=== PATIENT | male | born 1935 | race Caucasian/White ===

== ENCOUNTER 2016-06-10 09:11 | Inpatient (IN) | payer OTHER ==
[2016-06-10 09:39] VITALS: BMI 23.6
--- NOTE | 2016-06-10 09:52 | PDOC ---
History of Present Illness - General History Source: Patient Exam Limitations: Dementia - History of Present Illness Initial Comments: 06/10/16 10:16 The patient is a 80 year old male, BIBA from [facility] with a significant past medical history of asthma, HTN, GERD, prostate CA, anxiety, anemia, COPD, early dementia, who presents to the emergency department with hematuria since today. The patients daughter reports the patient being scheduled for a CT scan of his abdomen secondary to abdominal weight loss and decreased appetite. She reports due to this upcoming abdomen CT scan, [place] staff did not medicate the patient today, (including his normal dosage of Ativan). She states as a result the patient became quickly agitated, uncooperative, and blood was found in his urine. The patient arrives to the ER agitated and uncooperative with ER staff. Unable to obtain history from patient. Allergies: NKA Past surgical history: See HPI Social History: Nonsmoker. Denies EtOH use and recreational drug use. Primary Care Physician: <Marcus Okeefe - Last Filed: 06/10/16 11:05> <Destini Weller - Last Filed: 06/10/16 11:22> - General Chief Complaint: Hematuria Stated Complaint: HEMATURIA Time Seen by Provider: 06/10/16 09:25 Past History <Marcus Okeefe - Last Filed: 06/10/16 11:05> - Past Medical History Anemia: Yes Asthma: Yes Cancer: No GI Disorders: Yes (gerd) Disorders: Yes (prostatic ca) HTN: Yes Psychiatric Problems: Yes (anxiety) Other medical history: hyponatremia - Immunization History Immunization Up to Date: No - Psycho/Social/Smoking Cessation Hx Anxiety: No Suicidal Ideation: No Smoking History: Unknown if ever smoked Have you smoked in the past 12 months: No Information on smoking cessation initiated: No Hx Alcohol Use: No Drug/Substance Use Hx: No Substance Use Type: None <Destini Weller - Last Filed: 06/10/16 11:22> - Past Medical History Allergies/Adverse Reactions: Allergies Allergy/AdvReac Type Severity Reaction Status Date / Time No Known Allergies Allergy Verified 06/10/16 09:39 Home Medications: Ambulatory Orders Aa/Hydrolyzed Collagen, Whey [Lps Neutral Flavor Liquid] 30 ml PO TID 06/10/16 Acetaminophen 2 tab PO DAILY PRN 06/10/16 Amlodipine Besylate 1 tab PO DAILY 06/10/16 Ascorbic Acid [Vitamin C -] 1 tab PO DAILY 06/10/16 Clindamycin [Cleocin -] 1 tab PO Q6H 06/10/16 Collagenase Clostridium Hist. [Santyl] 1 applic TP DAILY 06/10/16 Dronabinol [Marinol] 1 tab PO BID 06/10/16 Finasteride 1 tab PO DAILY 06/10/16 Lorazepam [Ativan] 1 tab PO HS 06/10/16 Menthol/Zinc Oxide [Calmoseptine Ointment] 1 applic TP TID 06/10/16 Metoprolol Succinate [Toprol Xl] 1 tab PO DAILY 06/10/16 Multivitamin with Minerals [Icaps Plus] 1 tab PO DAILY 06/10/16 Omeprazole 2 tab PO DAILY 06/10/16 Tamsulosin HCl 1 tab PO HS 06/10/16 Tramadol HCl 1 tab PO Q4H PRN 06/10/16 Tramadol HCl [Tramadol HCl ER] 100 mg PO DAILY 06/10/16 Trazodone HCl 37.5 mg PO HS 06/10/16 Review of Systems - Review of Systems Able to Perform ROS?: No (Dementia) <Marcus Okeefe - Last Filed: 06/10/16 11:05> *Physical Exam - Vital Signs Last Vital Signs Temp Pulse Resp BP Pulse Ox 100.4 F H 109 H 24 109/95 100 06/10/16 10:00 06/10/16 10:00 06/10/16 10:00 06/10/16 10:00 06/10/16 10:00 <Marcus Okeefe - Last Filed: 06/10/16 11:05> - Vital Signs Last Vital Signs Temp Pulse Resp BP Pulse Ox 100.4 F H 130 H 28 H 127/84 100 06/10/16 09:15 06/10/16 09:15 06/10/16 09:15 06/10/16 09:15 06/10/16 09:15 - Physical Exam Comments: GENERAL: Awake, alert, and oriented to person, restless in bed. Pale. HEAD: No signs of trauma. EYES: PERRLA, EOMI, sclera anicteric, conjunctiva clear. ENT: Auricles normal inspection, hearing grossly normal, nares patent, oropharynx clear without exudates. Dry mucosa. NECK: Normal ROM, supple, no lymphadenopathy, JVD, or masses. LUNGS: Breath sounds equal, clear to auscultation bilaterally. No wheezes, and no crackles. HEART: Tachycardic. No m/r/g. ABDOMEN: Soft, nontender, normoactive bowel sounds. No guarding, no rebound. No masses. EXTREMITIES: Normal range of motion, no edema. No clubbing or cyanosis. No cords, erythema, or tenderness. NEUROLOGICAL: Limited neuro exam due to AMS. SKIN: Warm, Dry, normal turgor, no rashes or lesions noted. <Destini Weller - Last Filed: 06/10/16 11:22> ED Treatment Course - LABORATORY CBC & Chemistry Diagram: 06/10/16 10:13 06/10/16 10:13 - ADDITIONAL ORDERS Additional order review: Laboratory Results 06/10/16 09:52 VBG pH 7.41 POC VBG pCO2 37.8 L POC VBG pO2 22.7 L Mixed VBG HCO3 23.7 - RADIOLOGY Radiograph Interpretation: 06/10/16 11:05 CHEST X-RAY impressions reported by : No acute cardiopulmonary disease is present. - Medications Given in the ED: ED Medications Discontinued Medications Generic Name Dose Route Start Last Admin Trade Name Jaxonq PRN Reason Stop Dose Admin Lorazepam 0.5 mg 06/10/16 10:04 06/10/16 10:12 Ativan Injection - IVPUSH 06/10/16 10:05 0.5 mg ONCE ONE Administration <Marcus Okeefe - Last Filed: 06/10/16 11:05> - LABORATORY CBC & Chemistry Diagram: 06/10/16 10:13 06/10/16 10:13 <Destini Weller - Last Filed: 06/10/16 11:22> *DC/Admit/Observation/Transfer - Attestations Scribe Attestion: 06/10/16 10:17 Documentation prepared by Marcus Okeefe, acting as medical secretary teacher for Destini Weller MD. <Marcus Okeefe - Last Filed: 06/10/16 11:05> - Discharge Dispostion Admit: Yes <Destini Welelr Last Filed: 06/10/16 11:22> Diagnosis at time of Disposition: UTI (urinary tract infection) Qualifiers: Urinary tract infection type: acute cystitis Hematuria presence: without hematuria Qualified Code(s): N30.00 - Acute cystitis without hematuria Sepsis Qualifiers: Sepsis type: sepsis due to unspecified organism Qualified Code(s): A41.9 - Sepsis, unspecified organism - Discharge Dispostion Condition at time of disposition: Guarded - Referrals Referrals: Bhavesh Escalante MD [Primary Care Provider] -
[2016-06-10] MEDS ORDERED: SODIUM CHLORIDE 1,000 ML IV STA (10:03)
[2016-06-10] MEDS ORDERED: LORAZEPAM CARPU-JECT 2 MG/ML DISP.SYRIN IVPUSH ONE (10:04)
[2016-06-10 10:07] LABS: VENOUS BLOOD GAS HCO3 23.7 meq/L (19-25); VENOUS PH 7.41 (7.32-7.42)
[2016-06-10] MEDS ORDERED: LORAZEPAM CARPU-JECT 2 MG/ML DISP.SYRIN ONE (10:08)
[2016-06-10] MEDS ORDERED: ACETAMINOPHEN 1000 MG/100 ML VIAL (NON FORMULARY) IVPB ONE (10:19)
[2016-06-10] MEDS ORDERED: morphine CARPU-JECT 2 MG/1 ML DISP.SYRIN IVPUSH ONE ×2 (10:23→11:23)
[2016-06-10] MEDS ORDERED: morphine CARPU-JECT 2 MG/1 ML DISP.SYRIN ONE ×2 (10:33→11:30)
[2016-06-10] MEDS ORDERED: ACETAMINOPHEN INJECTION 100 ML IVPB ONE (10:33)
[2016-06-10 10:46] LABS: BASOPHIL 0.2 % (0-2.0); MCH 27.2 pg (25.7-33.7); MEAN CELL VOLUME 82.5 fl (80-96); NEUTROPHILS 88.2 % (42.8-82.8); PLATELET COUNT 334 K/MM3 (134-434); RDW 17.1 % (11.9-15.9)
[2016-06-10 10:53] LABS: ALBUMIN 2.3 g/dl (3.4-5.0); BILIRUBIN,TOTAL 0.9 mg/dL (0.2-1.0); CALCIUM 8.4 mg/dL (8.5-10.1); COCKROFT - GAULT 46.75; CREATININE 1.2 mg/dL (0.7-1.3); TOT PROT 5.8 g/dl (6.4-8.2)
[2016-06-10 10:54] LABS: INR 1.41 (0.82-1.09); PROTHROMBIN TIME (PATIENT) 15.6 SEC (9.98-11.88)
[2016-06-10 10:55] LABS: TROPONIN I 0.08 ng/ml (0.00-0.05)
[2016-06-10 10:56] LABS: URINE APPEARANCE CLOUDY; URINE BILIRUBIN NEGATIVE (NEGATIVE); URINE BLOOD 3+ (NEGATIVE); URINE GLUCOSE (UA) NEGATIVE (NEGATIVE); URINE KETONE 1+ (NEGATIVE); URINE LEUK ESTERASE 2+ (NEGATIVE); URINE NITRITE NEGATIVE (NEGATIVE); URINE PROTEIN 2+ (NEGATIVE); URINE UROBILINOGEN NEGATIVE E.U./dl (0.2-1.0)
[2016-06-10 10:57] LABS: ACTIVATED PTT 32.9 SECONDS (26.9-34.4); URINE COLOR BROWN
[2016-06-10 11:00] LABS: URINE RBC 4125 /hpf (0-3); URINE WBC 675 /hpf (3-5)
[2016-06-10] MEDS ORDERED: CEFTRIAXONE 1 GM in DEXTROSE 5%-WATER - 50 ML IVPB ONE (11:08)
[2016-06-10] MEDS ORDERED: CEFTRIAXONE 50 ML ONE (11:19)
[2016-06-10] MEDS ORDERED: HALOPERIDOL LACTATE 5 MG/ML IM ONE (12:15)
[2016-06-10] MEDS ORDERED: HALOPERIDOL LACTATE 5 MG/ML ONE (12:17)
--- NOTE | 2016-06-10 12:38 | HP ---
Admitting History and Physical - Primary Care Physician PCP: Bhavesh Escalante - Admission Chief Complaint: Unable to obtain History of Present Illness: Mr Mcdonald is a 80 [address] old patient of Dr Escalante'mauricio at [facility] who was sent in for an outpatient CT scan and was found to have UTI with severe sepsis. Patient has history of dementia and daughter is at bedside. Daughter says patient is normally well controlled and sleeping all the time. She says he has chronic complaint of abdominal pain and recently has decreased appetite. She states he has been losing weight. He was scheduled for an outpatient CT scan of the abdomen and was very agitated so it could not be done. He was found to have blood in his call[place]ay bag and UTI. Daughter at bedside is saying he is complaining of chest pain and screaming for help. I am unable to obtain any history from the patient at this time secondary to altered mental status. 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 Cardiovascular: Yes: HTN Renal/: Yes: BPH - Past Surgical History Additional Past Surgical History: Unknown - Smoking History Smoking history: Unknown if ever smoked Have you smoked in the past 12 months: No - Alcohol/Substance Use Hx Alcohol Use: No History of Substance Use: reports: None - Social History Usual Living Arrangement: Yes: [facility] ADL: Support Services History of Recent Travel: No Home Medications - Allergies Allergies/Adverse Reactions: Allergies Allergy/AdvReac Type Severity Reaction Status Date / Time No Known Allergies Allergy Verified 06/10/16 09:39 - Home Medications Home Medications: Ambulatory Orders Aa/Hydrolyzed Collagen, Whey [Lps Neutral Flavor Liquid] 30 ml PO TID 06/10/16 Acetaminophen 2 tab PO DAILY PRN 06/10/16 Amlodipine Besylate 1 tab PO DAILY 06/10/16 Ascorbic Acid [Vitamin C -] 1 tab PO DAILY 06/10/16 Clindamycin [Cleocin -] 1 tab PO Q6H 06/10/16 Collagenase Clostridium Hist. [Santyl] 1 applic TP DAILY 06/10/16 Dronabinol [Marinol] 1 tab PO BID 06/10/16 Finasteride 1 tab PO DAILY 06/10/16 Lorazepam [Ativan] 1 tab PO HS 06/10/16 Menthol/Zinc Oxide [Calmoseptine Ointment] 1 applic TP TID 06/10/16 Metoprolol Succinate [Toprol Xl] 1 tab PO DAILY 06/10/16 Multivitamin with Minerals [Icaps Plus] 1 tab PO DAILY 06/10/16 Omeprazole 2 tab PO DAILY 06/10/16 Tamsulosin HCl 1 tab PO HS 06/10/16 Tramadol HCl 1 tab PO Q4H PRN 06/10/16 Tramadol HCl [Tramadol HCl ER] 100 mg PO DAILY 06/10/16 Trazodone HCl 37.5 mg PO HS 06/10/16 Family Disease History - Family Disease History Other Family History: Multiple family members with diabetes, daughter cannot remember which specific family members though Review of Systems Unable to obtain ROS, reason: AMS Physical Examination Vital Signs: Vital Signs Temperature 100.4 F H 06/10/16 10:00 Pulse Rate 105 H 06/10/16 10:45 Respiratory Rate 24 06/10/16 10:45 Blood Pressure 120/59 06/10/16 10:45 O2 Sat by Pulse Oximetry (%) 99 06/10/16 10:45 Constitutional: Yes: Other (agitated, yelling, attempting to get out of bed) Eyes: Yes: Conjunctiva Clear HENT: Yes: Atraumatic, Normocephalic Cardiovascular: Yes: Tachycardia. No: Gallop, Murmur, Rub Respiratory: Yes: Other (unable to cooperate, yells through lung exam) Gastrointestinal: Yes: Normal Bowel Sounds, Soft, Tenderness. No: Distention Renal/: Yes: Hematuria Extremities: Yes: WNL Edema: No Labs: CBC, BMP 06/10/16 10:13 06/10/16 10:13 Imaging - Results Chest X-ray: Report Reviewed, Image Reviewed Problem List - Problems (1) Sepsis Assessment/Plan: -patient with severe sepsis as evidenced by leukocytosis, lactic acidosis, tachycardia, and elevated troponins -secondary to UTI -admit to telemetry -hydrate with IVF -rocephin ordered, ID consulted -recheck lactic acidosis -monitor Code(s): A41.9 - SEPSIS, UNSPECIFIED ORGANISM Qualifiers: Sepsis type: sepsis due to unspecified organism Qualified Code(s): A41.9 - Sepsis, unspecified organism (2) UTI (urinary tract infection) Assessment/Plan: -with hematuria -hematuria may be secondary to calloway trauma -cause of sepsis -urology consultation for hematuria -rocephin for UTI -cultures sent -ID consulted Code(s): N39.0 - URINARY TRACT INFECTION, SITE NOT SPECIFIED Qualifiers: Urinary tract infection type: acute cystitis Hematuria presence: with hematuria Qualified Code(s): N30.01 - Acute cystitis with hematuria (3) Lactic acid acidosis Assessment/Plan: -secondary to sepsis -IVF and antibiotics -recheck in am Code(s): E87.2 - ACIDOSIS (4) Metabolic encephalopathy Assessment/Plan: -with severe agitation -treat underlying sepsis -continue home regimen -prn haldol in the short term Code(s): G93.41 - METABOLIC ENCEPHALOPATHY (5) HTN (hypertension) Assessment/Plan: -continue toprol and amlodipine with hold parameters Code(s): I10 - ESSENTIAL (PRIMARY) HYPERTENSION (6) Dementia Assessment/Plan: -unclear baseline, but clearly worse -will continue outpatient regimen -treat sepsis -d/w daughter at bedside, explained patient may have new baseline Code(s): F03.90 - UNSPECIFIED DEMENTIA WITHOUT BEHAVIORAL DISTURBANCE Assessment/Plan 65 minutes spent in critical care time with this patient
--- NOTE | 2016-06-10 14:30 | CON.CARD ---
Cardiology Consult (text) - Consultation Consultation Note: CC: nstemi 80 yo with h/o htn, bph, advanced dementia who sent to ER for hematuria and noted to have UTI with sepsis complicated by elevated cardiac enzymes. hematuria noticed in call[place]ay when he became agitated while getting an outpatient CT scan. Scan had been ordered for sx's of abdominal pain and poor po intake/ weight loss. Per report typically sleeps most of the day. Per report, patient became agitated again today complaining of chest pain. I am unable to obtain any history from the patient at this time secondary to altered mental status. On evaluation patient is non-verbal and appears disoriented. 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 Cardiovascular: Yes: HTN Renal/: Yes: BPH - Past Surgical History Additional Past Surgical History: Unknown - Smoking History Smoking history: Unknown if ever smoked Have you smoked in the past 12 months: No - Alcohol/Substance Use Hx Alcohol Use: No History of Substance Use: reports: None - Social History Usual Living Arrangement: Yes: Senior Care, [facility] ADL: Support Services History of Recent Travel: No - Family Disease History Other Family History: no cardiac disease per report Ambulatory Orders Aa/Hydrolyzed Collagen, Whey [Lps Neutral Flavor Liquid] 30 ml PO TID 06/10/16 Acetaminophen 2 tab PO DAILY PRN 06/10/16 Amlodipine Besylate 1 tab PO DAILY 06/10/16 Ascorbic Acid [Vitamin C -] 1 tab PO DAILY 06/10/16 Clindamycin [Cleocin -] 1 tab PO Q6H 06/10/16 Collagenase Clostridium Hist. [Santyl] 1 applic TP DAILY 06/10/16 Dronabinol [Marinol] 1 tab PO BID 06/10/16 Finasteride 1 tab PO DAILY 06/10/16 Lorazepam [Ativan] 1 tab PO HS 06/10/16 Menthol/Zinc Oxide [Calmoseptine Ointment] 1 applic TP TID 06/10/16 Metoprolol Succinate [Toprol Xl] 1 tab PO DAILY 06/10/16 Multivitamin with Minerals [Icaps Plus] 1 tab PO DAILY 06/10/16 Omeprazole 2 tab PO DAILY 06/10/16 Tamsulosin HCl 1 tab PO HS 06/10/16 Tramadol HCl 1 tab PO Q4H PRN 06/10/16 Tramadol HCl [Tramadol HCl ER] 100 mg PO DAILY 06/10/16 Trazodone HCl 37.5 mg PO HS 06/10/16 Current Medications Amlodipine Besylate (Norvasc -) 10 mg PO DAILY [facility] Ascorbic Acid (Vitamin C -) 500 mg PO DAILY [facility] Collagenase (Santyl -) 1 applic TP DAILY [facility] Dronabinol (Marinol -) 2.5 mg PO BIDLS [facility] Finasteride (Proscar -) 5 mg PO DAILY [facility] Haloperidol (Haldol Injection (Fast Acting) -) 2 mg IM Q4H PRN PRN Reason: AGITATION Heparin Sodium (Porcine) (Heparin -) 5,000 unit SQ TID [facility] Sodium Chloride (Normal Saline -) 1,000 mls @ 75 mls/hr IV ASDIR [facility] Ceftriaxone Sodium (Rocephin 1gm Ivpb (Pre-Docked)) 50 mls @ 100 mls/hr IVPB DAILY [facility] Lactobacillus Acidophilus (Bacid -) 1 tab PO DAILY [facility] Lorazepam (Ativan -) 0.5 mg PO HS [facility] Metoprolol Succinate (Toprol Xl -) 50 mg PO DAILY [facility] Non-Formulary Medication (Menthol/Zinc Oxide [Calmoseptine Ointment]) 1 applic TP TID [facility] Pantoprazole Sodium (Protonix -) 40 mg PO DAILY [facility] Tamsulosin HCl (Flomax -) 0.4 mg PO HS [facility] Trazodone HCl (Desyrel -) 37.5 mg PO HS [facility] Vital Signs - 24 hr 06/10/16 06/10/16 06/10/16 09:15 10:00 10:15 Temperature 100.4 F H 100.4 F H Pulse Rate 130 H 109 H Pulse Rate [ 106 H Radial] Respiratory 28 H 24 24 Rate Blood Pressure 127/84 109/95 Blood Pressure 112/92 [Left] O2 Sat by Pulse 100 100 100 Oximetry (%) 06/10/16 06/10/16 06/10/16 10:30 10:45 11:15 Temperature Pulse Rate Pulse Rate [ 105 H 105 H 102 H Radial] Respiratory 24 24 22 Rate Blood Pressure Blood Pressure 121/58 120/59 104/56 [Left] O2 Sat by Pulse 99 99 99 Oximetry (%) 06/10/16 06/10/16 06/10/16 12:15 13:14 14:15 Temperature Pulse Rate Pulse Rate [ 108 H 91 H 84 Radial] Respiratory 22 20 20 Rate Blood Pressure Blood Pressure 120/88 105/67 104/52 [Left] O2 Sat by Pulse 100 98 99 Oximetry (%) Intake & Output 06/08/16 06/09/16 06/10/16 06/11/16 07:59 07:59 07:59 07:59 Intake Total 4750 Output Total 3200 Balance 1550 Weight 146 lb agitated, cachectic jvd flat, neck supple ctab, nl effort tachycardic, regular nl s1, s2 no mrg + bs soft nt nd ext without e/c/c + dp/pt alert but not oriented, non-verbal no jaundice, diaphoresis CBC, BMP 06/10/16 10:13 06/10/16 10:13 Laboratory Tests 06/10/16 06/10/16 06/10/16 10:13 10:13 10:13 INR 1.41 H Creat Clearance w eGFR 58.40 Lactic Acid 4.050 H* Total Bilirubin 0.9 AST 33 ALT 22 Alkaline Phosphatase 104 Creatine Kinase 244 Creatine Kinase Index 2.9 CK-MB (CK-2) 7.012 H Troponin I 0.08 H Albumin 2.3 L 06/10/16 11:57 INR Creat Clearance w eGFR Lactic Acid 2.482 H* Total Bilirubin AST ALT Alkaline Phosphatase Creatine Kinase Creatine Kinase Index CK-MB (CK-2) Troponin I Albumin EKG 06/10 12:21: uninterpretable due to baseline artifact EKG 06/10 14:46 Poor quality/baseline. Sinus tach with diffuse ST abnormalities. anterior ST sagging. possible inferior q waves. low limb voltages. tele: sinus tach abd CT: fecal retention, sacral decub with surrounding subcut air/abscess cxr: no acute infiltrate 80 yo with h/o htn, bph, advanced dementia who sent to ER for hematuria and noted to have UTI with sepsis complicated by elevated cardiac enzymes. nstemi - likely demand in setting of infection and tachycardia. Trend cardiac enzymes until peak to monitor trend. Would avoid ischemic work up if possible given underlying comorbidities, mental status. Would avoid anticoagulation/acs treatment at this time in light of recent hematuria. - will start low dose atorvastatin for now. can consider asa if urology amenable. - resume metoprolol - echo htn - currently has not received anti-hypertensives. monitor with resumption of regimen. sepsis/uti/hematuria - mgm't per pmd/urology/id
[2016-06-10] MEDS: HALOPERIDOL LACTATE 5 MG/ML IM PRN (15:09)
[2016-06-10] MEDS: SODIUM CHLORIDE 1,000 ML IV SCH (15:12)
[2016-06-10] MEDS: HEPARIN NA (PORCINE) 5,000 UNITS/ML 1ML VIAL SQ SCH ×2 (15:13→21:57)
--- NOTE | 2016-06-10 15:30 | CONSULT ---
Consult Consult Specialty:: infectious diseases Reason for Consultation:: sepsis,fever - History of Present Illness History of Present Illness: 80 year old patient who has been known to me from the long-term found to have UTI with severe sepsis. 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 Cardio/Vascular: Yes: HTN Renal/: Yes: BPH - Alcohol/Substance Use Hx Alcohol Use: No History of Substance Use: reports: None - Smoking History Smoking history: Unknown if ever smoked Have you smoked in the past 12 months: No - Social History ADL: Support Services History of Recent Travel: No Home Medications - Allergies Allergies/Adverse Reactions: Allergies Allergy/AdvReac Type Severity Reaction Status Date / Time No Known Allergies Allergy Verified 06/10/16 09:39 - Home Medications Home Medications: Ambulatory Orders Aa/Hydrolyzed Collagen, Whey [Lps Neutral Flavor Liquid] 30 ml PO TID 06/10/16 Acetaminophen 2 tab PO DAILY PRN 06/10/16 Amlodipine Besylate 1 tab PO DAILY 06/10/16 Ascorbic Acid [Vitamin C -] 1 tab PO DAILY 06/10/16 Clindamycin [Cleocin -] 1 tab PO Q6H 06/10/16 Collagenase Clostridium Hist. [Santyl] 1 applic TP DAILY 06/10/16 Dronabinol [Marinol] 1 tab PO BID 06/10/16 Finasteride 1 tab PO DAILY 06/10/16 Lorazepam [Ativan] 1 tab PO HS 06/10/16 Menthol/Zinc Oxide [Calmoseptine Ointment] 1 applic TP TID 06/10/16 Metoprolol Succinate [Toprol Xl] 1 tab PO DAILY 06/10/16 Multivitamin with Minerals [Icaps Plus] 1 tab PO DAILY 06/10/16 Omeprazole 2 tab PO DAILY 06/10/16 Tamsulosin HCl 1 tab PO HS 06/10/16 Tramadol HCl 1 tab PO Q4H PRN 05/03/17 Tramadol HCl [Tramadol HCl ER] 100 mg PO DAILY 06/10/16 Trazodone HCl 37.5 mg PO HS 06/10/16 Family Disease History - Family Disease History Other Family History: Multiple family members with diabetes, daughter cannot remember which specific family members though Review of Systems Unable to obtain ROS, reason: unable to obtain Physical Exam Vital Signs: Vital Signs Temperature 100.4 F H 06/10/16 10:00 Pulse Rate 84 06/10/16 14:15 Respiratory Rate 20 06/10/16 14:15 Blood Pressure 104/52 06/10/16 14:15 O2 Sat by Pulse Oximetry (%) 99 06/10/16 14:15 Constitutional: Yes: Mild Distress, Poor Hygeine, Other Eyes: Yes: Conjunctiva Clear HENT: Yes: Atraumatic Neck: Yes: Supple Cardiovascular: Yes: Regular Rate and Rhythm, Tachycardia Respiratory: Yes: Regular, CTA Bilaterally Gastrointestinal: Yes: Normal Bowel Sounds, Soft Renal/: Yes: [place] Present Musculoskeletal: Yes: Other Extremities: Yes: Other Wound/Incision: Yes: Other (stage 4 decubitus ulce ulcer seen wound with some slough otherwise clean) Neurological: Yes: Alert, Other (agitated) Psychiatric: Yes: Other Imaging - Results Chest X-ray: Report Reviewed, Image Reviewed Cat Scan: Report Reviewed, Image Reviewed Assessment/Plan Problem List - Problems (1) Sepsis Code(s): A41.9 - SEPSIS, UNSPECIFIED ORGANISM Qualifiers: Sepsis type: sepsis due to unspecified organism Qualified Code(s): A41.9 - Sepsis, unspecified organism (2) UTI (urinary tract infection) Code(s): N39.0 - URINARY TRACT INFECTION, SITE NOT SPECIFIED Qualifiers: Urinary tract infection type: acute cystitis Hematuria presence: with hematuria Qualified Code(s): N30.01 - Acute cystitis with hematuria (3) Lactic acid acidosis Code(s): E87.2 - ACIDOSIS (4) Metabolic encephalopathy Code(s): G93.41 - METABOLIC ENCEPHALOPATHY (5) HTN (hypertension) Code(s): I10 - ESSENTIAL (PRIMARY) HYPERTENSION (6) Dementia Code(s): F03.90 - UNSPECIFIED DEMENTIA WITHOUT BEHAVIORAL DISTURBANCE plan will start on zosyn continue to monitor wbc lactic acid hydration rest as per priry team
--- NOTE | 2016-06-10 18:13 | CON.GU ---
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 Cardio/Vascular: Yes: HTN Renal/: Yes: BPH, Hematuria, UTI - Alcohol/Substance Use Hx Alcohol Use: No History of Substance Use: reports: None - Smoking History Smoking history: Unknown if ever smoked Have you smoked in the past 12 months: No - Social History ADL: Support Services History of Recent Travel: No Home Medications - Allergies Allergies/Adverse Reactions: Allergies Allergy/AdvReac Type Severity Reaction Status Date / Time No Known Allergies Allergy Verified 06/10/16 09:39 - Home Medications Home Medications: Ambulatory Orders Aa/Hydrolyzed Collagen, Whey [Lps Neutral Flavor Liquid] 30 ml PO TID 06/10/16 Acetaminophen 2 tab PO DAILY PRN 06/10/16 Amlodipine Besylate 1 tab PO DAILY 06/10/16 Ascorbic Acid [Vitamin C -] 1 tab PO DAILY 06/10/16 Clindamycin [Cleocin -] 1 tab PO Q6H 06/10/16 Collagenase Clostridium Hist. [Santyl] 1 applic TP DAILY 06/10/16 Dronabinol [Marinol] 1 tab PO BID 06/10/16 Finasteride 1 tab PO DAILY 06/10/16 Lorazepam [Ativan] 1 tab PO HS 06/10/16 Menthol/Zinc Oxide [Calmoseptine Ointment] 1 applic TP TID 06/10/16 Metoprolol Succinate [Toprol Xl] 1 tab PO DAILY 06/10/16 Multivitamin with Minerals [Icaps Plus] 1 tab PO DAILY 06/10/16 Omeprazole 2 tab PO DAILY 06/10/16 Tamsulosin HCl 1 tab PO HS 06/10/16 Tramadol HCl 1 tab PO Q4H PRN 06/10/16 Tramadol HCl [Tramadol HCl ER] 100 mg PO DAILY 06/10/16 Trazodone HCl 37.5 mg PO HS 06/10/16 Family Disease History - Family Disease History Other Family History: Multiple family members with diabetes, daughter cannot remember which specific family members though Physical Exam- Vital Signs: Vital Signs Temperature 98.0 F 06/10/16 15:00 Pulse Rate 124 H 05/03/17 15:00 Respiratory Rate 19 06/10/16 15:00 Blood Pressure 159/79 06/10/16 15:00 O2 Sat by Pulse Oximetry (%) 99 06/10/16 14:15 Imaging - Results Cat Scan: Report Reviewed Ultrasound: Report Reviewed Problem List - Problems (1) UTI (urinary tract infection) Code(s): N39.0 - URINARY TRACT INFECTION, SITE NOT SPECIFIED Qualifiers: Urinary tract infection type: acute cystitis Hematuria presence: with hematuria Qualified Code(s): N30.01 - Acute cystitis with hematuria (2) Sepsis Code(s): A41.9 - SEPSIS, UNSPECIFIED ORGANISM Qualifiers: Sepsis type: sepsis due to unspecified organism Qualified Code(s): A41.9 - Sepsis, unspecified organism Assessment/Plan 80 yo male w hx of bph recent UTI change mental status Now w calloway to sd draining wbc 19 cr 1.[address] no hydro Would cont calloway to sd only d/c if clinically improves cont current abx Will require elective cystoscopy will follow p voiding trial
[2016-06-10] MEDS: DRONABINOL 2.5 MG CAPSULE PO SCH (18:24)
[2016-06-10 19:00] LABS: TROPONIN I 0.09 ng/ml (0.00-0.05)
[2016-06-10] MEDS: LORazepam 0.5 MG TABLET PO SCH (21:54)
[2016-06-10] MEDS: traZODone HCL 50 MG TABLET (FP) PO SCH (21:54)
[2016-06-10] MEDS: ATORVASTATIN CA 10 MG TABLET (FP) PO SCH (21:54)
[2016-06-10] MEDS: TAMSULOSIN HCL 0.4 MG CAP.ER.24H (FP) PO SCH (21:54)
[2016-06-11] MEDS ORDERED: PIPERACILLIN/TAZOB 3.375 GM 3.375 GM in DEXTROSE 5%-WATER - 50 ML IVPB SCH (02:45)
[2016-06-11] MEDS: SODIUM CHLORIDE 1,000 ML IV SCH ×2 (03:15→12:38)
[2016-06-11] MEDS: PIPERACILLIN/TAZOB 3.375 GM/50 ML PRE-DOCKED IVPB SCH ×3 (03:15→17:21)
[2016-06-11] MEDS: HALOPERIDOL LACTATE 5 MG/ML IM PRN (03:17)
[2016-06-11] MEDS: HEPARIN NA (PORCINE) 5,000 UNITS/ML 1ML VIAL SQ SCH ×3 (06:37→21:52)
[2016-06-11 07:35] LABS: BASOPHIL 0.2 % (0-2.0); EOSINOPHIL 0.5 % (0-4.5); MCH 27.1 pg (25.7-33.7); MCHC 32.8 g/dl (32.0-35.9); MEAN CELL VOLUME 82.6 fl (80-96); MEAN PLT VOLUME 8.9 fl (7.5-11.1); NEUTROPHILS 80.5 % (42.8-82.8); PLATELET COUNT 230 K/MM3 (134-434); RDW 17.2 % (11.9-15.9); WHITE BLOOD COUNT 11.8 K/mm3 (4.0-10.0)
[2016-06-11 08:02] LABS: CALCIUM 7.7 mg/dL (8.5-10.1); MAGNESIUM 1.7 mg/dL (1.8-2.4)
[2016-06-11 08:07] LABS: COCKROFT - GAULT 93.51; CREATININE 0.6 mg/dL (0.7-1.3); PHOSPHOROUS 2.9 mg/dL (2.5-4.9); TROPONIN I 0.07 ng/ml (0.00-0.05)
[2016-06-11] MEDS: ASCORBIC ACID 500 MG TABLET (FP) PO SCH (09:34)
[2016-06-11] MEDS: PANTOPRAZOLE 40 MG TABLET (FP) PO SCH (09:34)
[2016-06-11] MEDS: METOPROLOL SUCCINATE 25 MG TAB.SR.24H (FP) PO SCH (09:34)
[2016-06-11] MEDS: FINASTERIDE 5 MG TABLET (FP) PO SCH (09:35)
[2016-06-11] MEDS: LACTOBACILLUS ACIDOPHILUS 1 EACH TAB (FP) PO SCH (09:35)
[2016-06-11] MEDS: amLODIPine BESYLATE 10 MG TABLET (FP) PO SCH (09:41)
[2016-06-11] MEDS ORDERED: METOPROLOL SUCCINATE 50 MG TAB.SR.24H (FP) PO SCH (10:00)
[2016-06-11] MEDS ORDERED: CEFTRIAXONE 50 ML IVPB SCH (10:00)
--- NOTE | 2016-06-11 12:09 | PN ---
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 (short form) - Note 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: s: agitated, in restraints, no meaningful communication o: Vital Signs Period Temp Pulse Resp BP Sys/Kerr Pulse Ox Last 24 Hr 98.0 F-99.4 F 84-124 18-22 96-159/52-92 98-100 agitated, cachectic jvd flat, neck supple ctab, nl effort tachycardic, regular nl s1, s2 no mrg + bs soft nt nd ext without e/c/c alert but not oriented, non-verbal no jaundice, diaphoresis Current Medications Generic Name Dose Route Start Last Admin Trade Name Freq PRN Reason Stop Dose Admin Amlodipine Besylate 10 mg 06/11/16 10:00 06/11/16 09:41 Norvasc - PO Not Given DAILY CORNELIO Ascorbic Acid 500 mg 06/11/16 10:00 06/11/16 09:34 Vitamin C - PO 500 mg DAILY CORNELIO Administration Atorvastatin Calcium 10 mg 06/10/16 22:00 06/10/16 21:54 Lipitor - PO 10 mg HS CORNELIO Administration Collagenase 1 applic 06/11/16 10:00 Santyl - TP DAILY CORNELIO Dronabinol 2.5 mg 06/10/16 17:30 06/10/16 18:24 Marinol - PO Not Given BIDLS CORNELIO Finasteride 5 mg 06/11/16 10:00 06/11/16 09:35 Proscar - PO 5 mg DAILY CORNELIO Administration Haloperidol 2 mg 06/10/16 12:29 06/11/16 03:17 Haldol Injection (Fast Acting) - IM 2 mg Q4H PRN Administration AGITATION Heparin Sodium (Porcine) 5,000 unit 06/10/16 14:00 06/11/16 06:37 Heparin - SQ 5,000 unit TID CORNELIO Administration Sodium Chloride 1,000 mls @ 75 mls/hr 06/10/16 12:30 06/11/16 03:15 Normal Saline - IV 75 mls/hr ASDIR CORNELIO Administration Lactobacillus Acidophilus 1 tab 06/11/16 10:00 06/11/16 09:35 Bacid - PO 1 tab DAILY CORNELIO Administration Lorazepam 0.5 mg 06/10/16 22:00 06/10/16 21:54 Ativan - PO 0.5 mg HS CORNELIO Administration Metoprolol Succinate 25 mg 06/10/16 19:12 06/11/16 09:34 Toprol Xl - PO 25 mg DAILY CORNELIO Administration Non-Formulary Medication 1 applic 06/10/16 14:00 Menthol/Zinc Oxide [Calmoseptine Ointment] TP TID CORNELIO Pantoprazole Sodium 40 mg 06/11/16 10:00 06/11/16 09:34 Protonix - PO 40 mg DAILY CORNELIO Administration Piperacillin Sod/Tazobactam Sod 3.375 gm 06/11/16 03:15 06/11/16 09:35 Zosyn 3.375gm Ivpb (Pre-Docked) IVPB 3.375 gm Q8H-IV CORNELIO Administration Tamsulosin HCl 0.4 mg 06/10/16 22:00 06/10/16 21:54 Flomax - PO 0.4 mg HS CORNELIO Administration Trazodone HCl 37.5 mg 06/10/16 22:00 06/10/16 21:54 Desyrel - PO 37.5 mg HS CORNELIO Administration CBC, BMP 06/11/16 05:35 06/11/16 05:35 EKG 06/10 12:21: uninterpretable due to baseline artifact EKG 06/10 14:46 Poor quality/baseline. Sinus tach with diffuse ST abnormalities. anterior ST sagging. possible inferior q waves. low limb voltages. tele: extensive motion artifact, appears to be SR/sinus tach abd CT: fecal retention, sacral decub with surrounding subcut air/abscess cxr: no acute infiltrate a/p: 80 yo with h/o htn, bph, advanced dementia who sent to ER for hematuria and noted to have UTI with sepsis complicated by elevated cardiac enzymes. positive trops: - borderline trop elevation with flat trend and low ck index, not consistent with acs, likely related to likely demand in setting of infection and tachycardia. - will start low dose atorvastatin for now. can consider asa if urology amenable. - cont metoprolol - echo pending htn - cont current meds sepsis/uti/hematuria - mgm't per pmd/urology/ID
[2016-06-11] MEDS: DRONABINOL 2.5 MG CAPSULE PO SCH ×2 (12:38→17:21)
[2016-06-11] MEDS ORDERED: MAGNESIUM SULF 50% (8.12 MEQ/2 ML-1 GM VIAL) IVPB ONE (15:02)
--- NOTE | 2016-06-11 15:03 | PN ---
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, Physician Chief Complaint: Unable to obtain secondary to mental status - Current Medication List Current Medications: Active Medications Amlodipine Besylate (Norvasc -) 10 mg PO DAILY [facility] Last Admin: 06/11/16 09:41 Dose: Not Given Ascorbic Acid (Vitamin C -) 500 mg PO DAILY [facility] Last Admin: 06/11/16 09:34 Dose: 500 mg Atorvastatin Calcium (Lipitor -) 10 mg PO HS [facility] Last Admin: 06/10/16 21:54 Dose: 10 mg Collagenase (Santyl -) 1 applic TP DAILY [facility] Dronabinol (Marinol -) 2.5 mg PO BIDLS [facility] Last Admin: 06/11/16 12:38 Dose: 2.5 mg Finasteride (Proscar -) 5 mg PO DAILY [facility] Last Admin: 06/11/16 09:35 Dose: 5 mg Haloperidol (Haldol Injection (Fast Acting) -) 2 mg IM Q4H PRN PRN Reason: AGITATION Last Admin: 06/11/16 03:17 Dose: 2 mg Heparin Sodium (Porcine) (Heparin -) 5,000 unit SQ TID [facility] Last Admin: 06/11/16 06:37 Dose: 5,000 unit Lactobacillus Acidophilus (Bacid -) 1 tab PO DAILY [facility] Last Admin: 06/11/16 09:35 Dose: 1 tab Lorazepam (Ativan -) 0.5 mg PO HS [facility] Last Admin: 06/10/16 21:54 Dose: 0.5 mg Metoprolol Succinate (Toprol Xl -) 25 mg PO DAILY [facility] Last Admin: 06/11/16 09:34 Dose: 25 mg Non-Formulary Medication (Menthol/Zinc Oxide [Calmoseptine Ointment]) 1 applic TP TID [facility] Pantoprazole Sodium (Protonix -) 40 mg PO DAILY [facility] Last Admin: 06/11/16 09:34 Dose: 40 mg Piperacillin Sod/Tazobactam Sod (Zosyn 3.375gm Ivpb (Pre-Docked)) 3.375 gm IVPB Q8H-IV [facility] Last Admin: 06/11/16 09:35 Dose: 3.375 gm Tamsulosin HCl (Flomax -) 0.4 mg PO HS [facility] Last Admin: 06/10/16 21:54 Dose: 0.4 mg Trazodone HCl (Desyrel -) 37.5 mg PO HS [facility] Last Admin: 06/10/16 21:54 Dose: 37.5 mg - Objective Vital Signs: Vital Signs Temperature 98.8 F 06/11/16 10:00 Pulse Rate 94 H 06/11/16 10:00 Respiratory Rate 20 06/11/16 10:00 Blood Pressure 96/69 06/11/16 10:00 O2 Sat by Pulse Oximetry (%) 98 06/11/16 09:00 Constitutional: Yes: No Distress, Calm Cardiovascular: Yes: Tachycardia. No: Gallop, Murmur, Rub Respiratory: Yes: Regular, CTA Bilaterally, Other (poor inspiration) Gastrointestinal: Yes: Normal Bowel Sounds, Soft. No: Distention, Tenderness Extremities: Yes: WNL Edema: No Labs: CBC, BMP 06/11/16 05:35 06/11/16 05:35 INR, PTT INR 1.41 (0.82-1.09) H 06/10/16 10:13 Problem List - Problems (1) Sepsis Code(s): A41.9 - SEPSIS, UNSPECIFIED ORGANISM Qualifiers: Sepsis type: sepsis due to unspecified organism Qualified Code(s): A41.9 - Sepsis, unspecified organism (2) UTI (urinary tract infection) Code(s): N39.0 - URINARY TRACT INFECTION, SITE NOT SPECIFIED Qualifiers: Urinary tract infection type: acute cystitis Hematuria presence: with hematuria Qualified Code(s): N30.01 - Acute cystitis with hematuria (3) Lactic acid acidosis Code(s): E87.2 - ACIDOSIS (4) Metabolic encephalopathy Code(s): G93.41 - METABOLIC ENCEPHALOPATHY (5) HTN (hypertension) Code(s): I10 - ESSENTIAL (PRIMARY) HYPERTENSION (6) Dementia Code(s): F03.90 - UNSPECIFIED DEMENTIA WITHOUT BEHAVIORAL DISTURBANCE Assessment/Plan (1) Sepsis Assessment/Plan: -urine growing enterococcus -blood cultures 3/4 positive -ID following -changed rocephin to zosyn -continue hydration -improving Code(s): A41.9 - SEPSIS, UNSPECIFIED ORGANISM Qualifiers: Sepsis type: sepsis due to unspecified organism Qualified Code(s): A41.9 - Sepsis, unspecified organism (2) UTI (urinary tract infection) Assessment/Plan: -with hematuria -appreciate urology assistance -source of sepsis -on zosyn -ID following Code(s): N39.0 - URINARY TRACT INFECTION, SITE NOT SPECIFIED Qualifiers: Urinary tract infection type: acute cystitis Hematuria presence: with hematuria Qualified Code(s): N30.01 - Acute cystitis with hematuria (3) Lactic acid acidosis Assessment/Plan: -resolved Code(s): E87.2 - ACIDOSIS (4) Metabolic encephalopathy Assessment/Plan: -less agitated -still with encephalopathy -continue antibiotics and fluid support Code(s): G93.41 - METABOLIC ENCEPHALOPATHY (5) HTN (hypertension) Assessment/Plan: -continue toprol and amlodipine with hold parameters Code(s): I10 - ESSENTIAL (PRIMARY) HYPERTENSION (6) Dementia Assessment/Plan: -treat sepsis -continue home regimen -prn haldol Code(s): F03.90 - UNSPECIFIED DEMENTIA WITHOUT BEHAVIORAL DISTURBANCE (7) Hypernatremia -will change IVF to D5 1/2NS -monitor (8) Hypokalemia -replace in IVF
[2016-06-11] MEDS: COLLAGENASE CLOSTRIDIUM HIST. 30 GRAMS TUBE TP SCH (15:37)
--- NOTE | 2016-06-11 15:37 | PN ---
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, Physician History of Present Illness: patient looking much better still agitated but less in restrains hematuria resolved but some blood around the tip of penis - Current Medication List Current Medications: Active Medications Amlodipine Besylate (Norvasc -) 10 mg PO DAILY [facility] Last Admin: 06/11/16 09:41 Dose: Not Given Ascorbic Acid (Vitamin C -) 500 mg PO DAILY [facility] Last Admin: 06/11/16 09:34 Dose: 500 mg Atorvastatin Calcium (Lipitor -) 10 mg PO HS [facility] Last Admin: 06/10/16 21:54 Dose: 10 mg Collagenase (Santyl -) 1 applic TP DAILY [facility] Dronabinol (Marinol -) 2.5 mg PO BIDLS [facility] Last Admin: 06/11/16 12:38 Dose: 2.5 mg Finasteride (Proscar -) 5 mg PO DAILY [facility] Last Admin: 06/11/16 09:35 Dose: 5 mg Haloperidol (Haldol Injection (Fast Acting) -) 2 mg IM Q4H PRN PRN Reason: AGITATION Last Admin: 06/11/16 03:17 Dose: 2 mg Heparin Sodium (Porcine) (Heparin -) 5,000 unit SQ TID [facility] Last Admin: 06/11/16 15:00 Dose: 5,000 unit Potassium Chloride/Dextrose/Sod Cl (D5-1/2ns+20 Meq Kcl -) 1,000 mls @ 75 mls/ hr IV ASDIR [facility] Lactobacillus Acidophilus (Bacid -) 1 tab PO DAILY [facility] Last Admin: 06/11/16 09:35 Dose: 1 tab Lorazepam (Ativan -) 0.5 mg PO HS [facility] Last Admin: 06/10/16 21:54 Dose: 0.5 mg Magnesium Sulfate (Magnesium Sulfate) 2 gm IVPB ONCE ONE Stop: 06/11/16 15:03 Metoprolol Succinate (Toprol Xl -) 25 mg PO DAILY [facility] Last Admin: 06/11/16 09:34 Dose: 25 mg Non-Formulary Medication (Menthol/Zinc Oxide [Calmoseptine Ointment]) 1 applic TP TID [facility] Pantoprazole Sodium (Protonix -) 40 mg PO DAILY [facility] Last Admin: 06/11/16 09:34 Dose: 40 mg Piperacillin Sod/Tazobactam Sod (Zosyn 3.375gm Ivpb (Pre-Docked)) 3.375 gm IVPB Q8H-IV [facility] Last Admin: 06/11/16 09:35 Dose: 3.375 gm Tamsulosin HCl (Flomax -) 0.4 mg PO [facility] Last Admin: 06/10/16 21:54 Dose: 0.4 mg Trazodone HCl (Desyrel -) 37.5 mg PO [facility] Last Admin: 06/10/16 21:54 Dose: 37.5 mg - Objective Vital Signs: Vital Signs Temperature 98.8 F 06/11/16 10:00 Pulse Rate 94 H 06/11/16 10:00 Respiratory Rate 20 06/11/16 10:00 Blood Pressure 96/69 06/11/16 10:00 O2 Sat by Pulse Oximetry (%) 98 06/11/16 09:00 Constitutional: Yes: Calm, Other Cardiovascular: Yes: Regular Rate and Rhythm Respiratory: Yes: Regular, CTA Bilaterally Gastrointestinal: Yes: Normal Bowel Sounds, Soft Genitourinary: Yes: [place] Present Musculoskeletal: Yes: Other Extremities: Yes: Other Wound/Incision: Yes: Dressing Dry and Intact Neurological: Yes: Alert Psychiatric: Yes: Alert Labs: CBC, BMP 06/11/16 05:35 06/11/16 05:35 INR, PTT INR 1.41 (0.82-1.09) H 06/10/16 10:13 Assessment/Plan Problem List - Problems (1) Sepsis Code(s): A41.9 - SEPSIS, UNSPECIFIED ORGANISM Qualifiers: Sepsis type: sepsis due to unspecified organism Qualified Code(s): A41.9 - Sepsis, unspecified organism (2) UTI (urinary tract infection) Code(s): N39.0 - URINARY TRACT INFECTION, SITE NOT SPECIFIED Qualifiers: Urinary tract infection type: acute cystitis Hematuria presence: with hematuria Qualified Code(s): N30.01 - Acute cystitis with hematuria (3) Lactic acid acidosis Code(s): E87.2 - ACIDOSIS (4) Metabolic encephalopathy Code(s): G93.41 - METABOLIC ENCEPHALOPATHY (5) HTN (hypertension) Code(s): I10 - ESSENTIAL (PRIMARY) HYPERTENSION (6) Dementia Code(s): F03.90 - UNSPECIFIED DEMENTIA WITHOUT BEHAVIORAL DISTURBANCE 7 gram positive bacteremia lactic acid resolved wbc trending down plan conitnlouie medeirossyn await for identification of organism repeat blood cx tomorrow rest as per primary
[2016-06-11] MEDS: D5-1/2NS+20 MEQ KCL - 1,000 ML IV SCH (15:55)
--- NOTE | 2016-06-11 17:31 | EKG ---
Test Reason : Blood Pressure : / mmHG Vent. Rate : 129 BPM Atrial Rate : 127 BPM P-R Int : 000 ms QRS Dur : 072 ms QT Int : 446 ms P-R-T Axes : 000 -17 032 degrees QTc Int : 653 ms POOR DATA QUALITY, INTERPRETATION MAY BE ADVERSELY AFFECTED UNDETERMINED RHYTHM LOW VOLTAGE QRS NONSPECIFIC ST AND T WAVE ABNORMALITY ABNORMAL ECG NO PREVIOUS ECGS AVAILABLE Confirmed by JUNIOR NOLAN, LEVI ([id number]) on 06/11/2016 5:30:47 PM Referred By: Confirmed By:LEVI PACHECO MD
--- NOTE | 2016-06-11 17:32 | EKG ---
Test Reason : Blood Pressure : / mmHG Vent. Rate : 125 BPM Atrial Rate : 125 BPM P-R Int : 122 ms QRS Dur : 072 ms QT Int : 280 ms P-R-T Axes : 066 -16 240 degrees QTc Int : 404 ms POOR DATA QUALITY, INTERPRETATION MAY BE ADVERSELY AFFECTED SINUS TACHYCARDIA LOW VOLTAGE QRS ABNORMAL ECG WHEN COMPARED WITH ECG OF 10-JUN-2016 12:21, PREVIOUS ECG HAS UNDETERMINED RHYTHM, NEEDS REVIEW NON-SPECIFIC CHANGE IN ST SEGMENT IN INFERIOR LEADS Confirmed by LEVI PACHECO MD ([id number]) on 06/11/2016 5:31:52 PM Referred By: MARTY CARO Confirmed By:LEVI PACHECO MD
[2016-06-11] MEDS: traZODone HCL 50 MG TABLET (FP) PO SCH (21:50)
[2016-06-11] MEDS: TAMSULOSIN HCL 0.4 MG CAP.ER.24H (FP) PO SCH (21:52)
[2016-06-11] MEDS: LORazepam 0.5 MG TABLET PO SCH (21:52)
[2016-06-11] MEDS: ATORVASTATIN CA 10 MG TABLET (FP) PO SCH (21:52)
[2016-06-12] MEDS: PIPERACILLIN/TAZOB 3.375 GM/50 ML PRE-DOCKED IVPB SCH ×3 (01:19→17:36)
[2016-06-12] MEDS: HEPARIN NA (PORCINE) 5,000 UNITS/ML 1ML VIAL SQ SCH ×3 (06:51→21:39)
[2016-06-12 07:32] LABS: BASOPHIL 0.1 % (0-2.0); EOSINOPHIL 1.3 % (0-4.5); MCHC 32.5 g/dl (32.0-35.9); MEAN PLT VOLUME 8.8 fl (7.5-11.1); NEUTROPHILS 78.5 % (42.8-82.8); PLATELET COUNT 227 K/MM3 (134-434); RDW 17.5 % (11.9-15.9); WHITE BLOOD COUNT 11.7 K/mm3 (4.0-10.0)
[2016-06-12 07:49] LABS: COCKROFT - GAULT 93.51; CREATININE 0.6 mg/dL (0.7-1.3); MAGNESIUM 2.2 mg/dL (1.8-2.4); PHOSPHOROUS 2.2 mg/dL (2.5-4.9)
[2016-06-12 07:50] LABS: CALCIUM 7.7 mg/dL (8.5-10.1)
[2016-06-12] MEDS: PANTOPRAZOLE 40 MG TABLET (FP) PO SCH (09:04)
[2016-06-12] MEDS: ASCORBIC ACID 500 MG TABLET (FP) PO SCH (09:04)
[2016-06-12] MEDS: FINASTERIDE 5 MG TABLET (FP) PO SCH (09:04)
[2016-06-12] MEDS: METOPROLOL SUCCINATE 25 MG TAB.SR.24H (FP) PO SCH (09:04)
[2016-06-12] MEDS: LACTOBACILLUS ACIDOPHILUS 1 EACH TAB (FP) PO SCH (09:04)
[2016-06-12] MEDS: amLODIPine BESYLATE 10 MG TABLET (FP) PO SCH (09:05)
[2016-06-12] MEDS: COLLAGENASE CLOSTRIDIUM HIST. 30 GRAMS TUBE TP SCH (11:00)
--- NOTE | 2016-06-12 11:16 | PN ---
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 (short form) - Note 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: s: remains in restraints, no meaningful communication, no overnight events, appears comfortable o: Vital Signs Period Temp Pulse Resp BP Sys/Kerr Pulse Ox Last 24 Hr 9.7 F-98.8 F 90-99 18-20 95-140/43-88 93-98 awake, nad, cachectic jvd flat, neck supple ctab anteriorly, poor effort tachycardic, regular nl s1, s2 no mrg + bs soft nt nd ext without e/c/c alert but not oriented, non-verbal no jaundice, diaphoresis Current Medications Generic Name Dose Route Start Last Admin Trade Name Freq PRN Reason Stop Dose Admin Acetaminophen 650 mg 06/12/16 10:27 Tylenol - PO Q4H PRN FEVER OR PAIN Ascorbic Acid 500 mg 06/11/16 10:00 06/12/16 09:04 Vitamin C - PO 500 mg DAILY CORNELIO Administration Atorvastatin Calcium 10 mg 06/10/16 22:00 06/11/16 21:52 Lipitor - PO 10 mg HS CORNELIO Administration Collagenase 1 applic 06/11/16 10:00 06/11/16 15:37 Santyl - TP 1 applic DAILY CORNELIO Administration Dronabinol 2.5 mg 06/10/16 17:30 06/11/16 17:21 Marinol - PO 2.5 mg BIDLS CORNELIO Administration Finasteride 5 mg 06/11/16 10:00 06/12/16 09:04 Proscar - PO 5 mg DAILY CORNELIO Administration Haloperidol 2 mg 06/10/16 12:29 06/11/16 03:17 Haldol Injection (Fast Acting) - IM 2 mg Q4H PRN Administration AGITATION Heparin Sodium (Porcine) 5,000 unit 06/10/16 14:00 06/12/16 06:51 Heparin - SQ 5,000 unit TID CORNELIO Administration Potassium Chloride/Dextrose/Sod Cl 1,000 mls @ 75 mls/hr 06/11/16 15:15 15:55 D5-1/2ns+20 Meq Kcl - IV 75 mls/hr ASDIR CORNELIO Administration Lactobacillus Acidophilus 1 tab 06/11/16 10:00 06/12/16 09:04 Bacid - PO 1 tab DAILY CORNELIO Administration Lorazepam 0.5 mg 06/10/16 22:00 06/11/16 21:52 Ativan - PO 0.5 mg HS CORNELIO Administration Metoprolol Succinate 25 mg 06/10/16 19:12 06/12/16 09:04 Toprol Xl - PO 25 mg DAILY CORNELIO Administration Multi-Ingredient Ointment 1 applic 06/12/16 10:37 Zinc Oxide TP TID PRN Pantoprazole Sodium 40 mg 06/11/16 10:00 06/12/16 09:04 Protonix - PO 40 mg DAILY CORNELIO Administration Piperacillin Sod/Tazobactam Sod 3.375 gm 06/11/16 03:15 06/12/16 09:05 Zosyn 3.375gm Ivpb (Pre-Docked) IVPB 3.375 gm Q8H-IV CORNELIO Administration Potassium Phos/Sodium Phos 1 packet 06/12/16 10:45 Phos-Nak Packet - PO 06/15/16 10:44 BID CORNELIO Tamsulosin HCl 0.4 mg 06/10/16 22:00 06/11/16 21:52 Flomax - PO 0.4 mg HS CORNELIO Administration Trazodone HCl 37.5 mg 06/10/16 22:00 06/11/16 21:50 Desyrel - PO 37.5 mg HS CORNELIO Administration CBC, BMP 06/12/16 06:09 06/12/16 06:09 EKG 06/10 12:21: uninterpretable due to baseline artifact EKG 06/10 14:46 Poor quality/baseline. Sinus tach with diffuse ST abnormalities. anterior ST sagging. possible inferior q waves. low limb voltages. tele: extensive motion artifact, appears to be SR/sinus tach abd CT: fecal retention, sacral decub with surrounding subcut air/abscess cxr: no acute infiltrate a/p: 80 yo with h/o htn, bph, advanced dementia who sent to ER for hematuria and noted to have UTI with sepsis complicated by elevated cardiac enzymes. positive trops: - borderline trop elevation with flat trend and low ck index, not consistent with acs, likely related to likely demand in setting of infection and tachycardia. - started low dose atorvastatin. can consider asa if urology amenable. - cont metoprolol - echo done here this admit was non-diagnostic due to pt agitation/lack of cooperation htn - bp on lower side so will dc norvasc sepsis/uti/hematuria - mgm't per pmd/urology/ID
[2016-06-12] MEDS: DRONABINOL 2.5 MG CAPSULE PO SCH ×2 (12:27→17:45)
[2016-06-12] MEDS: ACETAMINOPHEN 325 MG TABLET (FP) PO PRN (12:27)
[2016-06-12] MEDS: NAPH,MB-DB/K PH,MBDB POWDER PACKET PO SCH ×2 (12:27→21:39)
--- NOTE | 2016-06-12 17:09 | PN ---
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, Physician Chief Complaint: Unable to obtain secondary to mental status but patient is calmer today - Current Medication List Current Medications: Active Medications Acetaminophen (Tylenol -) 650 mg PO Q4H PRN PRN Reason: FEVER OR PAIN Last Admin: 06/12/16 12:27 Dose: 650 mg Ascorbic Acid (Vitamin C -) 500 mg PO DAILY [facility] Last Admin: 06/12/16 09:04 Dose: 500 mg Atorvastatin Calcium (Lipitor -) 10 mg PO HS [facility] Last Admin: 06/11/16 21:52 Dose: 10 mg Collagenase (Santyl -) 1 applic TP DAILY [facility] Last Admin: 06/12/16 11:00 Dose: 1 applic Dronabinol (Marinol -) 2.5 mg PO BIDLS [facility] Last Admin: 06/12/16 12:27 Dose: 2.5 mg Finasteride (Proscar -) 5 mg PO DAILY [facility] Last Admin: 06/12/16 09:04 Dose: 5 mg Haloperidol (Haldol Injection (Fast Acting) -) 2 mg IM Q4H PRN PRN Reason: AGITATION Last Admin: 06/11/16 03:17 Dose: 2 mg Heparin Sodium (Porcine) (Heparin -) 5,000 unit SQ TID [facility] Last Admin: 06/12/16 13:50 Dose: 5,000 unit Potassium Chloride/Dextrose/Sod Cl (D5-1/2ns+20 Meq Kcl -) 1,000 mls @ 75 mls/ hr IV ASDIR [facility] Last Admin: 06/11/16 15:55 Dose: 75 mls/hr Lactobacillus Acidophilus (Bacid -) 1 tab PO DAILY [facility] Last Admin: 06/12/16 09:04 Dose: 1 tab Lorazepam (Ativan -) 0.5 mg PO HS [facility] Last Admin: 06/11/16 21:52 Dose: 0.5 mg Metoprolol Succinate (Toprol Xl -) 25 mg PO DAILY [facility] Last Admin: 06/12/16 09:04 Dose: 25 mg Multi-Ingredient Ointment (Zinc Oxide) 1 applic TP TID PRN Pantoprazole Sodium (Protonix -) 40 mg PO DAILY [facility] Last Admin: 06/12/16 09:04 Dose: 40 mg Piperacillin Sod/Tazobactam Sod (Zosyn 3.375gm Ivpb (Pre-Docked)) 3.375 gm IVPB Q8H-IV [facility] Last Admin: 06/12/16 09:05 Dose: 3.375 gm Potassium Phos/Sodium Phos (Phos-Nak Packet -) 1 packet PO BID [facility] Stop: 06/15/16 10:44 Last Admin: 06/12/16 12:27 Dose: 1 packet Tamsulosin HCl (Flomax -) 0.4 mg PO [facility] Last Admin: 06/11/16 21:52 Dose: 0.4 mg Trazodone HCl (Desyrel -) 37.5 mg PO [facility] Last Admin: 06/11/16 21:50 Dose: 37.5 mg - Objective Vital Signs: Vital Signs Temperature 98.0 F 06/12/16 15:58 Pulse Rate 62 06/12/16 15:58 Respiratory Rate 16 06/12/16 15:58 Blood Pressure 87/46 06/12/16 15:58 O2 Sat by Pulse Oximetry (%) 93 L 06/12/16 09:00 Constitutional: Yes: Well Nourished, No Distress, Calm Cardiovascular: Yes: Regular Rate and Rhythm. No: Gallop, Murmur, Rub Respiratory: Yes: Regular, CTA Bilaterally. No: Rales, Rhonchi, Wheezes Gastrointestinal: Yes: Normal Bowel Sounds, Soft. No: Distention, Tenderness Extremities: Yes: WNL Edema: No Labs: CBC, BMP 06/12/16 06:09 06/12/16 06:09 INR, PTT INR 1.41 (0.82-1.09) H 06/10/16 10:13 Problem List - Problems (1) Sepsis Code(s): A41.9 - SEPSIS, UNSPECIFIED ORGANISM Qualifiers: Sepsis type: sepsis due to unspecified organism Qualified Code(s): A41.9 - Sepsis, unspecified organism (2) UTI (urinary tract infection) Code(s): N39.0 - URINARY TRACT INFECTION, SITE NOT SPECIFIED Qualifiers: Urinary tract infection type: acute cystitis Hematuria presence: with hematuria Qualified Code(s): N30.01 - Acute cystitis with hematuria (3) Lactic acid acidosis Code(s): E87.2 - ACIDOSIS (4) Metabolic encephalopathy Code(s): G93.41 - METABOLIC ENCEPHALOPATHY (5) HTN (hypertension) Code(s): I10 - ESSENTIAL (PRIMARY) HYPERTENSION (6) Dementia Code(s): F03.90 - UNSPECIFIED DEMENTIA WITHOUT BEHAVIORAL DISTURBANCE Assessment/Plan (1) Sepsis Assessment/Plan: -urine growing enterococcus -blood cultures 3/4 positive -ID following -continue zosyn day 2 -patient improving Code(s): A41.9 - SEPSIS, UNSPECIFIED ORGANISM Qualifiers: Sepsis type: sepsis due to unspecified organism Qualified Code(s): A41.9 - Sepsis, unspecified organism (2) UTI (urinary tract infection) Assessment/Plan: -with hematuria -appreciate urology assistance -source of sepsis -on zosyn -ID following Code(s): N39.0 - URINARY TRACT INFECTION, SITE NOT SPECIFIED Qualifiers: Urinary tract infection type: acute cystitis Hematuria presence: with hematuria Qualified Code(s): N30.01 - Acute cystitis with hematuria (3) Lactic acid acidosis Assessment/Plan: -resolved Code(s): E87.2 - ACIDOSIS (4) Metabolic encephalopathy Assessment/Plan: -less agitated -patient appears improved today -patient with history of dementia, may be close to baseline Code(s): G93.41 - METABOLIC ENCEPHALOPATHY (5) HTN (hypertension) Assessment/Plan: -continue toprol and amlodipine with hold parameters Code(s): I10 - ESSENTIAL (PRIMARY) HYPERTENSION (6) Dementia Assessment/Plan: -treat sepsis -continue home regimen -prn haldol Code(s): F03.90 - UNSPECIFIED DEMENTIA WITHOUT BEHAVIORAL DISTURBANCE (7) Hypernatremia -improved -continue current IVF (8) Hypophosphatemia -replace
[2016-06-12] MEDS: LORazepam 0.5 MG TABLET PO SCH (21:37)
[2016-06-12] MEDS: TAMSULOSIN HCL 0.4 MG CAP.ER.24H (FP) PO SCH (21:37)
[2016-06-12] MEDS: ATORVASTATIN CA 10 MG TABLET (FP) PO SCH (21:37)
[2016-06-12] MEDS: traZODone HCL 50 MG TABLET (FP) PO SCH (21:37)
[2016-06-12] MEDS: D5-1/2NS+20 MEQ KCL - 1,000 ML IV SCH (21:38)
[2016-06-13] MEDS: PIPERACILLIN/TAZOB 3.375 GM/50 ML PRE-DOCKED IVPB SCH ×2 (01:49→10:03)
[2016-06-13] MEDS: HEPARIN NA (PORCINE) 5,000 UNITS/ML 1ML VIAL SQ SCH ×3 (06:09→22:40)
[2016-06-13 07:33] LABS: BASOPHIL 0.2 % (0-2.0); EOSINOPHIL 5.1 % (0-4.5); MCH 27.3 pg (25.7-33.7); MEAN CELL VOLUME 82.7 fl (80-96); MEAN PLT VOLUME 8.6 fl (7.5-11.1); NEUTROPHILS 70.4 % (42.8-82.8); PLATELET COUNT 213 K/MM3 (134-434); WHITE BLOOD COUNT 8.3 K/mm3 (4.0-10.0)
[2016-06-13 07:38] LABS: CALCIUM 7.2 mg/dL (8.5-10.1); COCKROFT - GAULT 112.21; CREATININE 0.5 mg/dL (0.7-1.3); MAGNESIUM 1.9 mg/dL (1.8-2.4); PHOSPHOROUS 2.5 mg/dL (2.5-4.9)
--- NOTE | 2016-06-13 07:55 | PN ---
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, Physician Chief Complaint: tachy History of Present Illness: sleepy, not arousable/communicative in restraints incl vest - Current Medication List Current Medications: Active Medications Acetaminophen (Tylenol -) 650 mg PO Q4H PRN PRN Reason: FEVER OR PAIN Last Admin: 06/12/16 12:27 Dose: 650 mg Ascorbic Acid (Vitamin C -) 500 mg PO DAILY [facility] Last Admin: 06/12/16 09:04 Dose: 500 mg Atorvastatin Calcium (Lipitor -) 10 mg PO HS [facility] Last Admin: 06/12/16 21:37 Dose: 10 mg Collagenase (Santyl -) 1 applic TP DAILY [facility] Last Admin: 06/12/16 11:00 Dose: 1 applic Dronabinol (Marinol -) 2.5 mg PO BIDLS [facility] Last Admin: 06/12/16 17:45 Dose: 2.5 mg Finasteride (Proscar -) 5 mg PO DAILY [facility] Last Admin: 06/12/16 09:04 Dose: 5 mg Haloperidol (Haldol Injection (Fast Acting) -) 2 mg IM Q4H PRN PRN Reason: AGITATION Last Admin: 06/11/16 03:17 Dose: 2 mg Heparin Sodium (Porcine) (Heparin -) 5,000 unit SQ TID [facility] Last Admin: 06/13/16 06:09 Dose: 5,000 unit Potassium Chloride/Dextrose/Sod Cl (D5-1/2ns+20 Meq Kcl -) 1,000 mls @ 75 mls/ hr IV ASDIR [facility] Last Admin: 06/12/16 21:38 Dose: 75 mls/hr Lactobacillus Acidophilus (Bacid -) 1 tab PO DAILY [facility] Last Admin: 06/12/16 09:04 Dose: 1 tab Lorazepam (Ativan -) 0.5 mg PO HS [facility] Last Admin: 06/12/16 21:37 Dose: 0.5 mg Metoprolol Succinate (Toprol Xl -) 25 mg PO DAILY [facility] Last Admin: 06/12/16 09:04 Dose: 25 mg Multi-Ingredient Ointment (Zinc Oxide) 1 applic TP TID PRN Pantoprazole Sodium (Protonix -) 40 mg PO DAILY [facility] Last Admin: 06/12/16 09:04 Dose: 40 mg Piperacillin Sod/Tazobactam Sod (Zosyn 3.375gm Ivpb (Pre-Docked)) 3.375 gm IVPB Q8H-IV [facility] Last Admin: 06/13/16 01:49 Dose: 3.375 gm Potassium Phos/Sodium Phos (Phos-Nak Packet -) 1 packet PO BID [facility] Stop: 06/15/16 10:44 Last Admin: 06/12/16 21:39 Dose: 1 packet Tamsulosin HCl (Flomax -) 0.4 mg PO [facility] Last Admin: 06/12/16 21:37 Dose: 0.4 mg Trazodone HCl (Desyrel -) 37.5 mg PO [facility] Last Admin: 06/12/16 21:37 Dose: 37.5 mg - Objective Vital Signs: Vital Signs Temperature 97.9 F 06/13/16 06:00 Pulse Rate 75 06/13/16 06:00 Respiratory Rate 16 06/13/16 06:00 Blood Pressure 122/63 06/13/16 06:00 O2 Sat by Pulse Oximetry (%) 93 L 06/12/16 21:00 Constitutional: Yes: Well Nourished, No Distress, Calm Cardiovascular: Yes: Regular Rate and Rhythm, S1, S2. No: Gallop, Murmur Respiratory: Yes: Regular, CTA Bilaterally (anteriorly (vest on)). No: Accessory Muscle Use, Rales, Wheezes Extremities: No: Cold Edema: No Neurological: No: Alert, Oriented, Seizure Psychiatric: No: Agitated Labs: INR, PTT INR 1.41 (0.82-1.09) H 06/10/16 10:13 - ....Imaging EKG: Other (tele: NSR, artifact; brief PAT) Assessment/Plan EKG 06/10 12:21: uninterpretable due to baseline artifact EKG 06/10 14:46 Poor quality/baseline. Sinus tach with diffuse ST abnormalities. anterior ST sagging. possible inferior q waves. low limb voltages. abd CT: fecal retention, sacral decub with surrounding subcut air/abscess a/p: 80 yo with h/o htn, bph, advanced dementia who sent to ER for hematuria and noted to have UTI with sepsis complicated by elevated cardiac enzymes. positive trops: - intermediate range trop elevation with flat trend and low ck index, not consistent with acs, likely related to likely demand in setting of infection and tachycardia. - started low dose atorvastatin. can consider asa once hematuria resolved - cont metoprolol - echo done here this admit was non-diagnostic due to pt agitation/lack of cooperation htn - bp initially on lower side so norvasc held (in setting of sepsis) - bp's currently stable urosepsis/hematuria -enterococcus in blood and urine -abx per ID PAT: -brief run atrial tach on tele -cont metopr -observe NO ONGOING INDICATION FOR TELEMETRY MONITORING
[2016-06-13] MEDS: METOPROLOL SUCCINATE 25 MG TAB.SR.24H (FP) PO SCH (10:03)
[2016-06-13] MEDS: ASCORBIC ACID 500 MG TABLET (FP) PO SCH (10:03)
[2016-06-13] MEDS: LACTOBACILLUS ACIDOPHILUS 1 EACH TAB (FP) PO SCH (10:03)
[2016-06-13] MEDS: FINASTERIDE 5 MG TABLET (FP) PO SCH (10:03)
[2016-06-13] MEDS: NAPH,MB-DB/K PH,MBDB POWDER PACKET PO SCH ×2 (10:03→22:40)
[2016-06-13] MEDS: PANTOPRAZOLE 40 MG TABLET (FP) PO SCH (10:03)
[2016-06-13] MEDS: COLLAGENASE CLOSTRIDIUM HIST. 30 GRAMS TUBE TP SCH (10:04)
--- NOTE | 2016-06-13 11:50 | PN ---
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, Physician Chief Complaint: Does not respond to questions; Dementia VS Encephalopathy History of Present Illness: Patient admitted with Acute Sepsis due to Enterococcus Faecalis scepticemia and UTI. Hs Dementia +/- Metabolic Encephalopathy. On IV antibiotics and WBC back to normal. Mitt restraints being used because of periods of confusion or agitation to avoid distubing IV sites. - Current Medication List Current Medications: Active Medications Acetaminophen (Tylenol -) 650 mg PO Q4H PRN PRN Reason: FEVER OR PAIN Last Admin: 06/12/16 12:27 Dose: 650 mg Ascorbic Acid (Vitamin C -) 500 mg PO DAILY [facility] Last Admin: 06/13/16 10:03 Dose: 500 mg Atorvastatin Calcium (Lipitor -) 10 mg PO HS [facility] Last Admin: 06/12/16 21:37 Dose: 10 mg Collagenase (Santyl -) 1 applic TP DAILY [facility] Last Admin: 06/13/16 10:04 Dose: 1 applic Dronabinol (Marinol -) 2.5 mg PO BIDLS [facility] Last Admin: 06/12/16 17:45 Dose: 2.5 mg Finasteride (Proscar -) 5 mg PO DAILY [facility] Last Admin: 06/13/16 10:03 Dose: 5 mg Haloperidol (Haldol Injection (Fast Acting) -) 2 mg IM Q4H PRN PRN Reason: AGITATION Last Admin: 06/11/16 03:17 Dose: 2 mg Heparin Sodium (Porcine) (Heparin -) 5,000 unit SQ TID [facility] Last Admin: 06/13/16 06:09 Dose: 5,000 unit Potassium Chloride/Dextrose/Sod Cl (D5-1/2ns+20 Meq Kcl -) 1,000 mls @ 75 mls/ hr IV ASDIR [facility] Last Admin: 06/12/16 21:38 Dose: 75 mls/hr Lactobacillus Acidophilus (Bacid -) 1 tab PO DAILY [facility] Last Admin: 06/13/16 10:03 Dose: 1 tab Lorazepam (Ativan -) 0.5 mg PO HS [facility] Last Admin: 06/12/16 21:37 Dose: 0.5 mg Metoprolol Succinate (Toprol Xl -) 25 mg PO DAILY [facility] Last Admin: 06/13/16 10:03 Dose: 25 mg Multi-Ingredient Ointment (Zinc Oxide) 1 applic TP TID PRN Pantoprazole Sodium (Protonix -) 40 mg PO DAILY [facility] Last Admin: 06/13/16 10:03 Dose: 40 mg Piperacillin Sod/Tazobactam Sod (Zosyn 3.375gm Ivpb (Pre-Docked)) 3.375 gm IVPB Q8H-IV [facility] Last Admin: 06/13/16 10:03 Dose: 3.375 gm Potassium Phos/Sodium Phos (Phos-Nak Packet -) 1 packet PO BID [facility] Stop: 06/15/16 10:44 Last Admin: 06/13/16 10:03 Dose: 1 packet Tamsulosin HCl (Flomax -) 0.4 mg PO HS [facility] Last Admin: 06/12/16 21:37 Dose: 0.4 mg Trazodone HCl (Desyrel -) 37.5 mg PO [facility] Last Admin: 06/12/16 21:37 Dose: 37.5 mg - Objective Vital Signs: Vital Signs Temperature 97.9 F 06/13/16 06:00 Pulse Rate 75 06/13/16 06:00 Respiratory Rate 16 06/13/16 06:00 Blood Pressure 122/63 06/13/16 06:00 O2 Sat by Pulse Oximetry (%) 93 L 06/12/16 21:00 Constitutional: Yes: Calm Eyes: Yes: Conjunctiva Clear Cardiovascular: Yes: Regular Rate and Rhythm Respiratory: Yes: Diminished Gastrointestinal: Yes: Normal Bowel Sounds, Soft. No: Tenderness Edema: No Neurological: Yes: Lethargy Labs: CBC, BMP 06/13/16 06:15 06/13/16 06:15 INR, PTT INR 1.41 (0.82-1.09) H 06/10/16 10:13 Problem List - Problems (1) Sepsis Assessment/Plan: Due to Enterococcus Faecalis scepticemia and UTI. On IV antibiotics as per ID . Code(s): A41.9 - SEPSIS, UNSPECIFIED ORGANISM Qualifiers: Sepsis type: sepsis due to unspecified organism Qualified Code(s): A41.9 - Sepsis, unspecified organism (2) Dementia Assessment/Plan: BY history but unable to communicate now because of overlying sepsis and encephalopathy. Code(s): F03.90 - UNSPECIFIED DEMENTIA WITHOUT BEHAVIORAL DISTURBANCE (3) Metabolic encephalopathy Assessment/Plan: Due Sepsis and UTI. Code(s): G93.41 - METABOLIC ENCEPHALOPATHY (4) UTI (urinary tract infection) Assessment/Plan: On IV RX Code(s): N39.0 - URINARY TRACT INFECTION, SITE NOT SPECIFIED Qualifiers: Urinary tract infection type: acute cystitis Hematuria presence: with hematuria Qualified Code(s): N30.01 - Acute cystitis with hematuria (5) Hypokalemia Assessment/Plan: K 3.3; To Rx with IV KCL X 2' Recheck Lab in Am. Code(s): E87.6 - HYPOKALEMIA
[2016-06-13] MEDS: DRONABINOL 2.5 MG CAPSULE PO SCH ×2 (12:02→17:04)
--- NOTE | 2016-06-13 13:51 | PN ---
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, Physician History of Present Illness: patient looking much better still agitated but less in restrains still confused - Current Medication List Current Medications: Active Medications Acetaminophen (Tylenol -) 650 mg PO Q4H PRN PRN Reason: FEVER OR PAIN Last Admin: 06/12/16 12:27 Dose: 650 mg Ascorbic Acid (Vitamin C -) 500 mg PO DAILY [facility] Last Admin: 06/13/16 10:03 Dose: 500 mg Atorvastatin Calcium (Lipitor -) 10 mg PO HS [facility] Last Admin: 06/12/16 21:37 Dose: 10 mg Collagenase (Santyl -) 1 applic TP DAILY [facility] Last Admin: 06/13/16 10:04 Dose: 1 applic Dronabinol (Marinol -) 2.5 mg PO BIDLS [facility] Last Admin: 06/13/16 12:02 Dose: 2.5 mg Finasteride (Proscar -) 5 mg PO DAILY [facility] Last Admin: 06/13/16 10:03 Dose: 5 mg Haloperidol (Haldol Injection (Fast Acting) -) 2 mg IM Q4H PRN PRN Reason: AGITATION Last Admin: 06/11/16 03:17 Dose: 2 mg Heparin Sodium (Porcine) (Heparin -) 5,000 unit SQ TID [facility] Last Admin: 06/13/16 06:09 Dose: 5,000 unit Potassium Chloride/Dextrose/Sod Cl (D5-1/2ns+20 Meq Kcl -) 1,000 mls @ 75 mls/ hr IV ASDIR [facility] Last Admin: 06/12/16 21:38 Dose: 75 mls/hr Potassium Chloride (Potassium Chloride 10 Meq Premix Ivpb -) 100 mls @ 100 mls/ hr IVPB Q60M [facility] Stop: 06/13/16 13:59 Lactobacillus Acidophilus (Bacid -) 1 tab PO DAILY [facility] Last Admin: 06/13/16 10:03 Dose: 1 tab Lorazepam (Ativan -) 0.5 mg PO HS [facility] Last Admin: 06/12/16 21:37 Dose: 0.5 mg Metoprolol Succinate (Toprol Xl -) 25 mg PO DAILY [facility] Last Admin: 06/13/16 10:03 Dose: 25 mg Multi-Ingredient Ointment (Zinc Oxide) 1 applic TP TID PRN Pantoprazole Sodium (Protonix -) 40 mg PO DAILY [facility] Last Admin: 06/13/16 10:03 Dose: 40 mg Piperacillin Sod/Tazobactam Sod (Zosyn 3.375gm Ivpb (Pre-Docked)) 3.375 gm IVPB Q8H-IV [facility] Last Admin: 06/13/16 10:03 Dose: 3.375 gm Potassium Phos/Sodium Phos (Phos-Nak Packet -) 1 packet PO BID [facility] Stop: 06/15/16 10:44 Last Admin: 06/13/16 10:03 Dose: 1 packet Tamsulosin HCl (Flomax -) 0.4 mg PO HS [facility] Last Admin: 06/12/16 21:37 Dose: 0.4 mg Trazodone HCl (Desyrel -) 37.5 mg PO HS [facility] Last Admin: 06/12/16 21:37 Dose: 37.5 mg - Objective Vital Signs: Vital Signs Temperature 97.9 F 06/13/16 06:00 Pulse Rate 75 06/13/16 06:00 Respiratory Rate 16 06/13/16 06:00 Blood Pressure 122/63 06/13/16 06:00 O2 Sat by Pulse Oximetry (%) 93 L 06/12/16 21:00 Constitutional: Yes: Mild Distress, Other (agitated) Cardiovascular: Yes: Regular Rate and Rhythm Respiratory: Yes: Regular, CTA Bilaterally Gastrointestinal: Yes: Normal Bowel Sounds, Soft Genitourinary: Yes: [place] Present Musculoskeletal: Yes: WNL Extremities: Yes: WNL Neurological: Yes: Alert, Confusion Psychiatric: Yes: Alert, Other Labs: CBC, BMP 06/13/16 06:15 06/13/16 06:15 INR, PTT INR 1.41 (0.82-1.09) H 06/10/16 10:13 Assessment/Plan Problem List - Problems (1) Sepsis Code(s): A41.9 - SEPSIS, UNSPECIFIED ORGANISM Qualifiers: Sepsis type: sepsis due to unspecified organism Qualified Code(s): A41.9 - Sepsis, unspecified organism (2) UTI (urinary tract infection) Code(s): N39.0 - URINARY TRACT INFECTION, SITE NOT SPECIFIED Qualifiers: Urinary tract infection type: acute cystitis Hematuria presence: with hematuria Qualified Code(s): N30.01 - Acute cystitis with hematuria (3) Lactic acid acidosis Code(s): E87.2 - ACIDOSIS (4) Metabolic encephalopathy Code(s): G93.41 - METABOLIC ENCEPHALOPATHY (5) HTN (hypertension) Code(s): I10 - ESSENTIAL (PRIMARY) HYPERTENSION (6) Dementia Code(s): F03.90 - UNSPECIFIED DEMENTIA WITHOUT BEHAVIORAL DISTURBANCE 7 gram positive bacteremia lactic acid resolved wbc trending down plan await for identification of the bacteria one more left continue current mgmt hydrsation
--- NOTE | 2016-06-13 13:52 | PN ---
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, Physician History of Present Illness: stable still in restraints - Current Medication List Current Medications: Active Medications Acetaminophen (Tylenol -) 650 mg PO Q4H PRN PRN Reason: FEVER OR PAIN Last Admin: 06/12/16 12:27 Dose: 650 mg Ascorbic Acid (Vitamin C -) 500 mg PO DAILY [facility] Last Admin: 06/13/16 10:03 Dose: 500 mg Atorvastatin Calcium (Lipitor -) 10 mg PO HS [facility] Last Admin: 06/12/16 21:37 Dose: 10 mg Collagenase (Santyl -) 1 applic TP DAILY [facility] Last Admin: 06/13/16 10:04 Dose: 1 applic Dronabinol (Marinol -) 2.5 mg PO BIDLS [facility] Last Admin: 06/13/16 12:02 Dose: 2.5 mg Finasteride (Proscar -) 5 mg PO DAILY [facility] Last Admin: 06/13/16 10:03 Dose: 5 mg Haloperidol (Haldol Injection (Fast Acting) -) 2 mg IM Q4H PRN PRN Reason: AGITATION Last Admin: 06/11/16 03:17 Dose: 2 mg Heparin Sodium (Porcine) (Heparin -) 5,000 unit SQ TID [facility] Last Admin: 06/13/16 06:09 Dose: 5,000 unit Potassium Chloride/Dextrose/Sod Cl (D5-1/2ns+20 Meq Kcl -) 1,000 mls @ 75 mls/ hr IV ASDIR [facility] Last Admin: 06/12/16 21:38 Dose: 75 mls/hr Potassium Chloride (Potassium Chloride 10 Meq Premix Ivpb -) 100 mls @ 100 mls/ hr IVPB Q60M [facility] Stop: 06/13/16 13:59 Ampicillin Sodium 1 gm/ Sodium (Chloride) 100 mls @ 200 mls/hr IVPB Q8H-IV [facility] Lactobacillus Acidophilus (Bacid -) 1 tab PO DAILY [facility] Last Admin: 06/13/16 10:03 Dose: 1 tab Lorazepam (Ativan -) 0.5 mg PO HS [facility] Last Admin: 06/12/16 21:37 Dose: 0.5 mg Metoprolol Succinate (Toprol Xl -) 25 mg PO DAILY [facility] Last Admin: 06/13/16 10:03 Dose: 25 mg Multi-Ingredient Ointment (Zinc Oxide) 1 applic TP TID PRN Pantoprazole Sodium (Protonix -) 40 mg PO DAILY [facility] Last Admin: 06/13/16 10:03 Dose: 40 mg Potassium Phos/Sodium Phos (Phos-Nak Packet -) 1 packet PO BID [facility] Stop: 06/15/16 10:44 Last Admin: 06/13/16 10:03 Dose: 1 packet Tamsulosin HCl (Flomax -) 0.4 mg PO [facility] Last Admin: 06/12/16 21:37 Dose: 0.4 mg Trazodone HCl (Desyrel -) 37.5 mg PO [facility] Last Admin: 06/12/16 21:37 Dose: 37.5 mg - Objective Vital Signs: Vital Signs Temperature 97.9 F 06/13/16 06:00 Pulse Rate 75 06/13/16 06:00 Respiratory Rate 16 06/13/16 06:00 Blood Pressure 122/63 06/13/16 06:00 O2 Sat by Pulse Oximetry (%) 93 L 06/12/16 21:00 Constitutional: Yes: No Distress, Calm Cardiovascular: Yes: Regular Rate and Rhythm. No: Murmur Respiratory: Yes: Regular, CTA Bilaterally Gastrointestinal: Yes: Normal Bowel Sounds, Soft Genitourinary: Yes: [place] Present Musculoskeletal: Yes: WNL Extremities: Yes: WNL Neurological: Yes: Alert, Confusion Psychiatric: Yes: Alert, Other Labs: CBC, BMP 06/13/16 06:15 06/13/16 06:15 INR, PTT INR 1.41 (0.82-1.09) H 06/10/16 10:13 Assessment/Plan Problem List - Problems (1) Sepsis Code(s): A41.9 - SEPSIS, UNSPECIFIED ORGANISM Qualifiers: Sepsis type: sepsis due to unspecified organism Qualified Code(s): A41.9 - Sepsis, unspecified organism (2) UTI (urinary tract infection) Code(s): N39.0 - URINARY TRACT INFECTION, SITE NOT SPECIFIED Qualifiers: Urinary tract infection type: acute cystitis Hematuria presence: with hematuria Qualified Code(s): N30.01 - Acute cystitis with hematuria (3) Lactic acid acidosis Code(s): E87.2 - ACIDOSIS (4) Metabolic encephalopathy Code(s): G93.41 - METABOLIC ENCEPHALOPATHY (5) HTN (hypertension) Code(s): I10 - ESSENTIAL (PRIMARY) HYPERTENSION (6) Dementia Code(s): F03.90 - UNSPECIFIED DEMENTIA WITHOUT BEHAVIORAL DISTURBANCE 7 gram positive bacteremia lactic acid resolved wbc trending down plan organism noted abx switched to ampicillin if possible try echo again wbc normalized rest continue as per primary
[2016-06-13] MEDS ORDERED: VANCOMYCIN 1,250 MG in DEXTROSE 5%-WATER - 250 ML IVPB SCH (14:00)
[2016-06-13] MEDS: KCL 10 MEQ IVPB 100 ML IVPB SCH ×2 (14:57→16:31)
[2016-06-13] MEDS: AMPICILLIN - 1 GM in SODIUM CHLORIDE 100 ML IVPB SCH ×2 (14:58→17:04)
[2016-06-13] MEDS: D5-1/2NS+20 MEQ KCL - 1,000 ML IV SCH (14:58)
[2016-06-13] MEDS ORDERED: PT OWN MED DRAWER 7, Y5N ONE ×2 (17:03→21:08)
[2016-06-13] MEDS: TAMSULOSIN HCL 0.4 MG CAP.ER.24H (FP) PO SCH (22:40)
[2016-06-13] MEDS: traZODone HCL 50 MG TABLET (FP) PO SCH (22:40)
[2016-06-13] MEDS: LORazepam 0.5 MG TABLET PO SCH (22:41)
[2016-06-13] MEDS: ATORVASTATIN CA 10 MG TABLET (FP) PO SCH (22:41)
[2016-06-14] MEDS: AMPICILLIN - 1 GM in SODIUM CHLORIDE 100 ML IVPB SCH ×3 (02:32→17:09)
[2016-06-14] MEDS: HEPARIN NA (PORCINE) 5,000 UNITS/ML 1ML VIAL SQ SCH ×3 (06:20→21:42)
[2016-06-14 08:31] LABS: BASOPHIL 0.3 % (0-2.0); EOSINOPHIL 5.7 % (0-4.5); MCH 27.4 pg (25.7-33.7); MCHC 32.8 g/dl (32.0-35.9); MEAN CELL VOLUME 83.5 fl (80-96); MEAN PLT VOLUME 8.7 fl (7.5-11.1); NEUTROPHILS 63.5 % (42.8-82.8); PLATELET COUNT 200 K/MM3 (134-434); RDW 16.8 % (11.9-15.9); WHITE BLOOD COUNT 7.9 K/mm3 (4.0-10.0)
[2016-06-14] MEDS: D5-1/2NS+20 MEQ KCL - 1,000 ML IV SCH ×2 (08:55→15:52)
[2016-06-14] MEDS ORDERED: PT OWN MED DRAWER 7, Y5N ONE ×3 (10:06→17:07)
[2016-06-14] MEDS: ASCORBIC ACID 500 MG TABLET (FP) PO SCH (10:13)
[2016-06-14] MEDS: METOPROLOL SUCCINATE 25 MG TAB.SR.24H (FP) PO SCH (10:13)
[2016-06-14] MEDS: LACTOBACILLUS ACIDOPHILUS 1 EACH TAB (FP) PO SCH (10:13)
[2016-06-14] MEDS: NAPH,MB-DB/K PH,MBDB POWDER PACKET PO SCH ×2 (10:13→21:42)
[2016-06-14] MEDS: PANTOPRAZOLE 40 MG TABLET (FP) PO SCH (10:13)
[2016-06-14] MEDS: FINASTERIDE 5 MG TABLET (FP) PO SCH (10:13)
--- NOTE | 2016-06-14 10:23 | PN ---
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, Physician Chief Complaint: No verbal response but he followed me today with his eyes. History of Present Illness: Patient with multiple medical issues including Metabolic Encephalopathy, Dementia, Scepticemia and UTI seems to be improved with a calmer demeanor and eye contact.Getting IV Antibiotics for Sepsis from enterococcus Faecalis. Still having mitts reordered and prn navi because of fear of disturbing IV lines and call[place]ay. Await repeat potassium level. - Current Medication List Current Medications: Active Medications Acetaminophen (Tylenol -) 650 mg PO Q4H PRN PRN Reason: FEVER OR PAIN Last Admin: 06/12/16 12:27 Dose: 650 mg Ascorbic Acid (Vitamin C -) 500 mg PO DAILY [facility] Last Admin: 06/14/16 10:13 Dose: 500 mg Atorvastatin Calcium (Lipitor -) 10 mg PO HS [facility] Last Admin: 06/13/16 22:41 Dose: 10 mg Collagenase (Santyl -) 1 applic TP DAILY [facility] Last Admin: 06/13/16 10:04 Dose: 1 applic Dronabinol (Marinol -) 2.5 mg PO BIDLS [facility] Last Admin: 06/13/16 17:04 Dose: 2.5 mg Finasteride (Proscar -) 5 mg PO DAILY [facility] Last Admin: 06/14/16 10:13 Dose: 5 mg Haloperidol (Haldol Injection (Fast Acting) -) 2 mg IM Q4H PRN PRN Reason: AGITATION Last Admin: 06/11/16 03:17 Dose: 2 mg Heparin Sodium (Porcine) (Heparin -) 5,000 unit SQ TID [facility] Last Admin: 06/14/16 06:20 Dose: 5,000 unit Potassium Chloride/Dextrose/Sod Cl (D5-1/2ns+20 Meq Kcl -) 1,000 mls @ 75 mls/ hr IV ASDIR [facility] Last Admin: 06/14/16 08:55 Dose: 75 mls/hr Ampicillin Sodium 1 gm/ Sodium (Chloride) 100 mls @ 200 mls/hr IVPB Q8H-IV [facility] Last Admin: 06/14/16 10:13 Dose: 200 mls/hr Lactobacillus Acidophilus (Bacid -) 1 tab PO DAILY [facility] Last Admin: 06/14/16 10:13 Dose: 1 tab Lorazepam (Ativan -) 0.5 mg PO HS [facility] Last Admin: 06/13/16 22:41 Dose: 0.5 mg Metoprolol Succinate (Toprol Xl -) 25 mg PO DAILY [facility] Last Admin: 06/14/16 10:13 Dose: 25 mg Multi-Ingredient Ointment (Zinc Oxide) 1 applic TP TID PRN Pantoprazole Sodium (Protonix -) 40 mg PO DAILY [facility] Last Admin: 06/14/16 10:13 Dose: 40 mg Potassium Phos/Sodium Phos (Phos-Nak Packet -) 1 packet PO BID [facility] Stop: 06/15/16 10:44 Last Admin: 06/14/16 10:13 Dose: 1 packet Tamsulosin HCl (Flomax -) 0.4 mg PO [facility] Last Admin: 06/13/16 22:40 Dose: 0.4 mg Trazodone HCl (Desyrel -) 37.5 mg PO [facility] Last Admin: 06/13/16 22:40 Dose: 37.5 mg - Objective Vital Signs: Vital Signs Temperature 98.2 F 06/14/16 07:24 Pulse Rate 76 06/14/16 07:24 Respiratory Rate 18 06/14/16 07:24 Blood Pressure 129/71 06/14/16 07:24 O2 Sat by Pulse Oximetry (%) 93 L 06/13/16 21:00 Constitutional: Yes: Calm. No: Pallor Eyes: Yes: PERRL Cardiovascular: Yes: Regular Rate and Rhythm Respiratory: Yes: Diminished. No: SOB Gastrointestinal: Yes: Soft. No: Tenderness Genitourinary: Yes: [place] Present Edema: No Neurological: Yes: Alert Labs: CBC, BMP 06/14/16 06:45 INR, PTT INR 1.41 (0.82-1.09) H 06/10/16 10:13 - ....Imaging EKG: Report Reviewed Problem List - Problems (1) Sepsis Assessment/Plan: On IV antibiotics for E. Faecalis sepsis Code(s): A41.9 - SEPSIS, UNSPECIFIED ORGANISM Qualifiers: Sepsis type: sepsis due to unspecified organism Qualified Code(s): A41.9 - Sepsis, unspecified organism (2) Dementia Assessment/Plan: Hx of Dementia on the chart but he was not on Rx before being admitted. Code(s): F03.90 - UNSPECIFIED DEMENTIA WITHOUT BEHAVIORAL DISTURBANCE (3) Metabolic encephalopathy Assessment/Plan: Seems most likely cause of his altered mental status on admission and has improved. Code(s): G93.41 - METABOLIC ENCEPHALOPATHY (4) UTI (urinary tract infection) Assessment/Plan: On Rx Code(s): N39.0 - URINARY TRACT INFECTION, SITE NOT SPECIFIED Qualifiers: Urinary tract infection type: acute cystitis Hematuria presence: with hematuria Qualified Code(s): N30.01 - Acute cystitis with hematuria (5) Hypokalemia Assessment/Plan: Was 3.3 yesterday; await F/U lab Code(s): E87.6 - HYPOKALEMIA
[2016-06-14] MEDS: COLLAGENASE CLOSTRIDIUM HIST. 30 GRAMS TUBE TP SCH (11:51)
[2016-06-14] MEDS: DRONABINOL 2.5 MG CAPSULE PO SCH ×2 (11:51→17:08)
[2016-06-14 11:53] LABS: CALCIUM 7.5 mg/dL (8.5-10.1); COCKROFT - GAULT 140.26; CREATININE 0.4 mg/dL (0.7-1.3)
[2016-06-14] MEDS ORDERED: POTASSIUM CHLORIDE ORAL LIQUID 20 MEQ/15 ML PO ONE ×2 (12:34→14:45)
[2016-06-14] MEDS: LORazepam 0.5 MG TABLET PO SCH (21:41)
[2016-06-14] MEDS: traZODone HCL 50 MG TABLET (FP) PO SCH (21:42)
[2016-06-14] MEDS: TAMSULOSIN HCL 0.4 MG CAP.ER.24H (FP) PO SCH (21:42)
[2016-06-14] MEDS: ATORVASTATIN CA 10 MG TABLET (FP) PO SCH (21:42)
[2016-06-15] MEDS: D5-1/2NS+20 MEQ KCL - 1,000 ML IV SCH ×2 (01:02→17:39)
[2016-06-15] MEDS: AMPICILLIN - 1 GM in SODIUM CHLORIDE 100 ML IVPB SCH ×3 (01:03→17:40)
[2016-06-15] MEDS: HEPARIN NA (PORCINE) 5,000 UNITS/ML 1ML VIAL SQ SCH ×3 (06:21→21:46)
[2016-06-15] MEDS ORDERED: PT OWN MED DRAWER 7, Y5N ONE ×2 (06:56→17:25)
[2016-06-15 08:15] LABS: CALCIUM 7.4 mg/dL (8.5-10.1); COCKROFT - GAULT 140.26; CREATININE 0.4 mg/dL (0.7-1.3); MAGNESIUM 1.5 mg/dL (1.8-2.4)
[2016-06-15] MEDS: ASCORBIC ACID 500 MG TABLET (FP) PO SCH (10:11)
[2016-06-15] MEDS: LACTOBACILLUS ACIDOPHILUS 1 EACH TAB (FP) PO SCH (10:11)
[2016-06-15] MEDS: PANTOPRAZOLE 40 MG TABLET (FP) PO SCH (10:11)
[2016-06-15] MEDS: METOPROLOL SUCCINATE 25 MG TAB.SR.24H (FP) PO SCH (10:11)
[2016-06-15] MEDS: ZINC OXIDE 20% TOPICAL OINTMENT 30 GM TUBE TP PRN (10:11)
[2016-06-15] MEDS: FINASTERIDE 5 MG TABLET (FP) PO SCH (10:11)
[2016-06-15] MEDS: NAPH,MB-DB/K PH,MBDB POWDER PACKET PO SCH (10:11)
[2016-06-15] MEDS: COLLAGENASE CLOSTRIDIUM HIST. 30 GRAMS TUBE TP SCH (10:12)
--- NOTE | 2016-06-15 10:53 | PN ---
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, Physician Chief Complaint: Unable to obtain secondary to mental status but patient is calm today. - Current Medication List Current Medications: Active Medications Acetaminophen (Tylenol -) 650 mg PO Q4H PRN PRN Reason: FEVER OR PAIN Last Admin: 06/12/16 12:27 Dose: 650 mg Ascorbic Acid (Vitamin C -) 500 mg PO DAILY [facility] Last Admin: 06/15/16 10:11 Dose: 500 mg Atorvastatin Calcium (Lipitor -) 10 mg PO HS [facility] Last Admin: 06/14/16 21:42 Dose: 10 mg Collagenase (Santyl -) 1 applic TP DAILY [facility] Last Admin: 06/15/16 10:12 Dose: 1 applic Dronabinol (Marinol -) 2.5 mg PO BIDLS [facility] Last Admin: 06/14/16 17:08 Dose: 2.5 mg Finasteride (Proscar -) 5 mg PO DAILY [facility] Last Admin: 06/15/16 10:11 Dose: 5 mg Haloperidol (Haldol Injection (Fast Acting) -) 2 mg IM Q4H PRN PRN Reason: AGITATION Last Admin: 06/11/16 03:17 Dose: 2 mg Heparin Sodium (Porcine) (Heparin -) 5,000 unit SQ TID [facility] Last Admin: 06/15/16 06:21 Dose: 5,000 unit Potassium Chloride/Dextrose/Sod Cl (D5-1/2ns+20 Meq Kcl -) 1,000 mls @ 75 mls/ hr IV ASDIR [facility] Last Admin: 06/15/16 01:02 Dose: 75 mls/hr Ampicillin Sodium 1 gm/ Sodium (Chloride) 100 mls @ 200 mls/hr IVPB Q8H-IV [facility] Last Admin: 06/15/16 10:11 Dose: 200 mls/hr Lactobacillus Acidophilus (Bacid -) 1 tab PO DAILY [facility] Last Admin: 06/15/16 10:11 Dose: 1 tab Lorazepam (Ativan -) 0.5 mg PO HS [facility] Last Admin: 06/14/16 21:41 Dose: 0.5 mg Magnesium Sulfate (Magnesium Sulfate) 2 gm IVPB ONCE ONE Stop: 06/15/16 11:16 Metoprolol Succinate (Toprol Xl -) 25 mg PO DAILY [facility] Last Admin: 06/15/16 10:11 Dose: 25 mg Multi-Ingredient Ointment (Zinc Oxide) 1 applic TP TID PRN Last Admin: 06/15/16 10:11 Dose: 1 applic Pantoprazole Sodium (Protonix -) 40 mg PO DAILY [facility] Last Admin: 06/15/16 10:11 Dose: 40 mg Tamsulosin HCl (Flomax -) 0.4 mg PO HS [facility] Last Admin: 06/14/16 21:42 Dose: 0.4 mg Trazodone HCl (Desyrel -) 37.5 mg PO HS [facility] Last Admin: 06/14/16 21:42 Dose: 37.5 mg - Objective Vital Signs: Vital Signs Temperature 97.9 F 06/15/16 06:00 Pulse Rate 70 06/15/16 06:00 Respiratory Rate 18 06/15/16 06:00 Blood Pressure 143/79 06/15/16 06:00 O2 Sat by Pulse Oximetry (%) 97 06/14/16 21:00 Constitutional: Yes: Well Nourished, No Distress, Calm Cardiovascular: Yes: Regular Rate and Rhythm. No: Gallop, Murmur, Rub Respiratory: Yes: Regular, CTA Bilaterally. No: Rales, Rhonchi, Wheezes Gastrointestinal: Yes: Normal Bowel Sounds, Soft. No: Distention, Tenderness Extremities: Yes: WNL Edema: No Labs: CBC, BMP 06/14/16 06:45 06/15/16 06:45 INR, PTT INR 1.41 (0.82-1.09) H 06/10/16 10:13 Problem List - Problems (1) Sepsis Code(s): A41.9 - SEPSIS, UNSPECIFIED ORGANISM Qualifiers: Sepsis type: sepsis due to unspecified organism Qualified Code(s): A41.9 - Sepsis, unspecified organism (2) UTI (urinary tract infection) Code(s): N39.0 - URINARY TRACT INFECTION, SITE NOT SPECIFIED Qualifiers: Urinary tract infection type: acute cystitis Hematuria presence: with hematuria Qualified Code(s): N30.01 - Acute cystitis with hematuria (3) Lactic acid acidosis Code(s): E87.2 - ACIDOSIS (4) Metabolic encephalopathy Code(s): G93.41 - METABOLIC ENCEPHALOPATHY (5) HTN (hypertension) Code(s): I10 - ESSENTIAL (PRIMARY) HYPERTENSION (6) Dementia Code(s): F03.90 - UNSPECIFIED DEMENTIA WITHOUT BEHAVIORAL DISTURBANCE Assessment/Plan (1) Sepsis Assessment/Plan: -urine growing enterococcus -original blood cultures positive for enterococcus, repeat blood cultures currently NGTD -ID following -antibiotics changed to ampicillin, day 5 Code(s): A41.9 - SEPSIS, UNSPECIFIED ORGANISM Qualifiers: Sepsis type: sepsis due to unspecified organism Qualified Code(s): A41.9 - Sepsis, unspecified organism (2) UTI (urinary tract infection) Assessment/Plan: -with hematuria -appreciate urology assistance -source of sepsis -on antibiotics Code(s): N39.0 - URINARY TRACT INFECTION, SITE NOT SPECIFIED Qualifiers: Urinary tract infection type: acute cystitis Hematuria presence: with hematuria Qualified Code(s): N30.01 - Acute cystitis with hematuria (3) Lactic acid acidosis Assessment/Plan: -resolved Code(s): E87.2 - ACIDOSIS (4) Metabolic encephalopathy Assessment/Plan: -suspect patient is at baseline -daughter stated on admission patient normally is quiet and non-verbal -calm today Code(s): G93.41 - METABOLIC ENCEPHALOPATHY (5) HTN (hypertension) Assessment/Plan: -continue toprol and amlodipine with hold parameters Code(s): I10 - ESSENTIAL (PRIMARY) HYPERTENSION (6) Dementia Assessment/Plan: -at baseline Code(s): F03.90 - UNSPECIFIED DEMENTIA WITHOUT BEHAVIORAL DISTURBANCE (7) Hypernatremia -resolved -continue current IVF (8) Hypomagnesemia -replace
[2016-06-15] MEDS ORDERED: MAGNESIUM SULF 50% (8.12 MEQ/2 ML-1 GM VIAL) IVPB ONE (11:15)
[2016-06-15] MEDS: DRONABINOL 2.5 MG CAPSULE PO SCH ×2 (12:38→17:40)
--- NOTE | 2016-06-15 16:12 | PN ---
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, Physician History of Present Illness: patient calm no new issues - Current Medication List Current Medications: Active Medications Acetaminophen (Tylenol -) 650 mg PO Q4H PRN PRN Reason: FEVER OR PAIN Last Admin: 06/12/16 12:27 Dose: 650 mg Ascorbic Acid (Vitamin C -) 500 mg PO DAILY [facility] Last Admin: 06/15/16 10:11 Dose: 500 mg Atorvastatin Calcium (Lipitor -) 10 mg PO HS [facility] Last Admin: 06/14/16 21:42 Dose: 10 mg Collagenase (Santyl -) 1 applic TP DAILY [facility] Last Admin: 06/15/16 10:12 Dose: 1 applic Dronabinol (Marinol -) 2.5 mg PO BIDLS [facility] Last Admin: 06/15/16 12:38 Dose: 2.5 mg Finasteride (Proscar -) 5 mg PO DAILY [facility] Last Admin: 06/15/16 10:11 Dose: 5 mg Haloperidol (Haldol Injection (Fast Acting) -) 2 mg IM Q4H PRN PRN Reason: AGITATION Last Admin: 06/11/16 03:17 Dose: 2 mg Heparin Sodium (Porcine) (Heparin -) 5,000 unit SQ TID [facility] Last Admin: 06/15/16 13:12 Dose: 5,000 unit Potassium Chloride/Dextrose/Sod Cl (D5-1/2ns+20 Meq Kcl -) 1,000 mls @ 75 mls/ hr IV ASDIR [facility] Last Admin: 06/15/16 01:02 Dose: 75 mls/hr Ampicillin Sodium 1 gm/ Sodium (Chloride) 100 mls @ 200 mls/hr IVPB Q8H-IV [facility] Last Admin: 06/15/16 10:11 Dose: 200 mls/hr Lactobacillus Acidophilus (Bacid -) 1 tab PO DAILY [facility] Last Admin: 06/15/16 10:11 Dose: 1 tab Lorazepam (Ativan -) 0.5 mg PO HS [facility] Last Admin: 06/14/16 21:41 Dose: 0.5 mg Metoprolol Succinate (Toprol Xl -) 25 mg PO DAILY [facility] Last Admin: 06/15/16 10:11 Dose: 25 mg Multi-Ingredient Ointment (Zinc Oxide) 1 applic TP TID PRN Last Admin: 06/15/16 10:11 Dose: 1 applic Pantoprazole Sodium (Protonix -) 40 mg PO DAILY [facility] Last Admin: 06/15/16 10:11 Dose: 40 mg Tamsulosin HCl (Flomax -) 0.4 mg PO [facility] Last Admin: 06/14/16 21:42 Dose: 0.4 mg Trazodone HCl (Desyrel -) 37.5 mg PO [facility] Last Admin: 06/14/16 21:42 Dose: 37.5 mg - Objective Vital Signs: Vital Signs Temperature 98.4 F 06/15/16 14:34 Pulse Rate 80 06/15/16 14:34 Respiratory Rate 16 06/15/16 14:34 Blood Pressure 118/78 06/15/16 14:34 O2 Sat by Pulse Oximetry (%) 97 06/15/16 09:00 Constitutional: Yes: No Distress, Calm Cardiovascular: Yes: Regular Rate and Rhythm Respiratory: Yes: Regular, CTA Bilaterally Gastrointestinal: Yes: Normal Bowel Sounds, Soft Musculoskeletal: Yes: Other Wound/Incision: Yes: Other (bilateral heel ulcer) Labs: CBC, BMP 06/14/16 06:45 06/15/16 06:45 INR, PTT INR 1.41 (0.82-1.09) H 06/10/16 10:13 Assessment/Plan Problem List - Problems (1) Sepsis Code(s): A41.9 - SEPSIS, UNSPECIFIED ORGANISM Qualifiers: Sepsis type: sepsis due to unspecified organism Qualified Code(s): A41.9 - Sepsis, unspecified organism (2) UTI (urinary tract infection) Code(s): N39.0 - URINARY TRACT INFECTION, SITE NOT SPECIFIED Qualifiers: Urinary tract infection type: acute cystitis Hematuria presence: with hematuria Qualified Code(s): N30.01 - Acute cystitis with hematuria (3) Lactic acid acidosis Code(s): E87.2 - ACIDOSIS (4) Metabolic encephalopathy Code(s): G93.41 - METABOLIC ENCEPHALOPATHY (5) HTN (hypertension) Code(s): I10 - ESSENTIAL (PRIMARY) HYPERTENSION (6) Dementia Code(s): F03.90 - UNSPECIFIED DEMENTIA WITHOUT BEHAVIORAL DISTURBANCE 7 gram positive bacteremia lactic acid resolved wbc normal plan continue current abx patient repeat blood cx negative rest continue as per team continue to monitor
--- NOTE | 2016-06-15 16:35 | PN ---
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 (short form) - Note 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: Chief Complaint: tachy History of Present Illness: Patient awake. Follows commands, non-verbal. Appears comfortable. Current Medications Acetaminophen (Tylenol -) 650 mg PO Q4H PRN PRN Reason: FEVER OR PAIN Last Admin: 06/12/16 12:27 Dose: 650 mg Ascorbic Acid (Vitamin C -) 500 mg PO DAILY [facility] Last Admin: 06/15/16 10:11 Dose: 500 mg Atorvastatin Calcium (Lipitor -) 10 mg PO HS [facility] Last Admin: 06/14/16 21:42 Dose: 10 mg Collagenase (Santyl -) 1 applic TP DAILY [facility] Last Admin: 06/15/16 10:12 Dose: 1 applic Dronabinol (Marinol -) 2.5 mg PO BIDLS [facility] Last Admin: 06/15/16 12:38 Dose: 2.5 mg Finasteride (Proscar -) 5 mg PO DAILY [facility] Last Admin: 06/15/16 10:11 Dose: 5 mg Haloperidol (Haldol Injection (Fast Acting) -) 2 mg IM Q4H PRN PRN Reason: AGITATION Last Admin: 06/11/16 03:17 Dose: 2 mg Heparin Sodium (Porcine) (Heparin -) 5,000 unit SQ TID [facility] Last Admin: 06/15/16 13:12 Dose: 5,000 unit Potassium Chloride/Dextrose/Sod Cl (D5-1/2ns+20 Meq Kcl -) 1,000 mls @ 75 mls/ hr IV ASDIR [facility] Last Admin: 06/15/16 01:02 Dose: 75 mls/hr Ampicillin Sodium 1 gm/ Sodium (Chloride) 100 mls @ 200 mls/hr IVPB Q8H-IV [facility] Last Admin: 06/15/16 10:11 Dose: 200 mls/hr Potassium Chloride (Potassium Chloride 10 Meq Premix Ivpb -) 100 mls @ 100 mls/ hr IVPB Q60M [facility] Stop: 06/15/16 19:44 Lactobacillus Acidophilus (Bacid -) 1 tab PO DAILY [facility] Last Admin: 06/15/16 10:11 Dose: 1 tab Lorazepam (Ativan -) 0.5 mg PO HS [facility] Last Admin: 06/14/16 21:41 Dose: 0.5 mg Metoprolol Succinate (Toprol Xl -) 25 mg PO DAILY [facility] Last Admin: 06/15/16 10:11 Dose: 25 mg Multi-Ingredient Ointment (Zinc Oxide) 1 applic TP TID [facility]N Last Admin: 06/15/16 10:11 Dose: 1 applic Pantoprazole Sodium (Protonix -) 40 mg PO DAILY [facility] Last Admin: 06/15/16 10:11 Dose: 40 mg Tamsulosin HCl (Flomax -) 0.4 mg PO HS [facility] Last Admin: 06/14/16 21:42 Dose: 0.4 mg Trazodone HCl (Desyrel -) 37.5 mg PO HS [facility] Last Admin: 06/14/16 21:42 Dose: 37.5 mg Vital Signs - 24 hr 06/14/16 06/14/16 06/15/16 17:12 21:00 02:00 Temperature 97.3 F L 97.7 F Pulse Rate 72 79 Respiratory 18 18 18 Rate Blood Pressure 150/75 122/72 O2 Sat by Pulse 97 Oximetry (%) 06/15/16 06/15/16 06/15/16 06:00 09:00 10:00 Temperature 97.9 F 98 F Pulse Rate 70 75 Respiratory 18 18 Rate Blood Pressure 143/79 132/88 O2 Sat by Pulse 97 Oximetry (%) 06/15/16 14:34 Temperature 98.4 F Pulse Rate 80 Respiratory 16 Rate Blood Pressure 118/78 O2 Sat by Pulse Oximetry (%) Intake & Output 06/13/16 06/14/16 06/15/16 06/16/16 07:59 07:59 07:59 07:59 Intake Total 950 1000 2125 100 Output Total 500 200 400 300 Balance 950 732 0116 -200 Constitutional: Yes: Well Nourished, No Distress, Calm Cardiovascular: Yes: Regular Rate and Rhythm, S1, S2. No: Gallop, Murmur Respiratory: Yes: Regular, CTA Bilaterally (anteriorly (vest on)). No: Accessory Muscle Use, Rales, Wheezes Extremities: No: Cold Edema: No Neurological: No: Alert, Oriented, Seizure Psychiatric: No: Agitated Labs: CBC, BMP 06/15/16 06:45 Microbiology 06/10/16 10:45 Blood - Peripheral Venous Blood Culture - Final Enterococcus Faecalis Staphylococcus Epidermidis 06/10/16 10:45 Blood - Peripheral Venous Blood Culture - Final Enterococcus Faecalis Laboratory Tests 06/15/16 06:45 Magnesium 1.5 L D - ....Imaging EKG: Other (prior tele: NSR, artifact; brief PAT) Assessment/Plan EKG 06/10 12:21: uninterpretable due to baseline artifact EKG 06/10 14:46 Poor quality/baseline. Sinus tach with diffuse ST abnormalities. anterior ST sagging. possible inferior q waves. low limb voltages. abd CT: fecal retention, sacral decub with surrounding subcut air/abscess a/p: 80 yo with h/o htn, bph, advanced dementia who sent to ER for hematuria and noted to have UTI with sepsis complicated by elevated cardiac enzymes. positive trops: - intermediate range trop elevation with flat trend and low ck index, not consistent with acs, likely related to likely demand in setting of infection and tachycardia. - started low dose atorvastatin. can consider asa per pmd/urology once UTI resolved and no further risk of recurrent hematuria. - cont metoprolol - echo done here this admit was non-diagnostic due to pt agitation/lack of cooperation htn - bp initially on lower side so norvasc held (in setting of sepsis) - bp's currently stable on metoprolol alone urosepsis/hematuria -enterococcus in blood and urine -abx per ID - remains on IVF, no signs of volume overlaod PAT: -brief run atrial tach when on tele -cont metopr, currently rate controlled. -observe. lyte repletion prn
[2016-06-15] MEDS: KCL 10 MEQ IVPB 100 ML IVPB SCH ×2 (17:41→18:39)
[2016-06-15] MEDS ORDERED: POTASSIUM CHLORIDE ORAL LIQUID 20 MEQ/15 ML PO ONE (18:41)
[2016-06-15] MEDS: TAMSULOSIN HCL 0.4 MG CAP.ER.24H (FP) PO SCH (21:45)
[2016-06-15] MEDS: traZODone HCL 50 MG TABLET (FP) PO SCH (21:45)
[2016-06-15] MEDS: ATORVASTATIN CA 10 MG TABLET (FP) PO SCH (21:45)
[2016-06-15] MEDS: LORazepam 0.5 MG TABLET PO SCH (21:46)
[2016-06-16] MEDS ORDERED: PT OWN MED DRAWER 7, Y5N ONE ×2 (02:09→17:47)
[2016-06-16] MEDS: AMPICILLIN - 1 GM in SODIUM CHLORIDE 100 ML IVPB SCH ×3 (02:12→18:00)
[2016-06-16] MEDS: HEPARIN NA (PORCINE) 5,000 UNITS/ML 1ML VIAL SQ SCH ×3 (05:53→21:40)
[2016-06-16] MEDS: D5-1/2NS+20 MEQ KCL - 1,000 ML IV SCH ×2 (06:49→18:00)
[2016-06-16 07:49] LABS: BASOPHIL 0.2 % (0-2.0); EOSINOPHIL 4.6 % (0-4.5); MCH 27.1 pg (25.7-33.7); MCHC 32.9 g/dl (32.0-35.9); MEAN CELL VOLUME 82.4 fl (80-96); MEAN PLT VOLUME 8.2 fl (7.5-11.1); NEUTROPHILS 65.8 % (42.8-82.8); PLATELET COUNT 203 K/MM3 (134-434); RDW 16.4 % (11.9-15.9); WHITE BLOOD COUNT 7.1 K/mm3 (4.0-10.0)
[2016-06-16 08:12] LABS: COCKROFT - GAULT 187.02; CREATININE 0.3 mg/dL (0.7-1.3); MAGNESIUM 1.7 mg/dL (1.8-2.4); PHOSPHOROUS 2.4 mg/dL (2.5-4.9)
[2016-06-16] MEDS: LACTOBACILLUS ACIDOPHILUS 1 EACH TAB (FP) PO SCH (09:52)
[2016-06-16] MEDS: PANTOPRAZOLE 40 MG TABLET (FP) PO SCH (09:52)
[2016-06-16] MEDS: ASCORBIC ACID 500 MG TABLET (FP) PO SCH (09:52)
[2016-06-16] MEDS: ZINC OXIDE 20% TOPICAL OINTMENT 30 GM TUBE TP PRN (09:52)
[2016-06-16] MEDS: METOPROLOL SUCCINATE 25 MG TAB.SR.24H (FP) PO SCH (09:52)
[2016-06-16] MEDS: FINASTERIDE 5 MG TABLET (FP) PO SCH (09:52)
[2016-06-16] MEDS: COLLAGENASE CLOSTRIDIUM HIST. 30 GRAMS TUBE TP SCH (09:53)
--- NOTE | 2016-06-16 12:15 | PN ---
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, Physician History of Present Illness: patient calm no new issues - Current Medication List Current Medications: Active Medications Acetaminophen (Tylenol -) 650 mg PO Q4H PRN PRN Reason: FEVER OR PAIN Last Admin: 06/12/16 12:27 Dose: 650 mg Ascorbic Acid (Vitamin C -) 500 mg PO DAILY [facility] Last Admin: 06/16/16 09:52 Dose: 500 mg Atorvastatin Calcium (Lipitor -) 10 mg PO HS [facility] Last Admin: 06/15/16 21:45 Dose: 10 mg Collagenase (Santyl -) 1 applic TP DAILY [facility] Last Admin: 06/16/16 09:53 Dose: 1 applic Dronabinol (Marinol -) 2.5 mg PO BIDLS [facility] Last Admin: 06/15/16 17:40 Dose: 2.5 mg Finasteride (Proscar -) 5 mg PO DAILY [facility] Last Admin: 06/16/16 09:52 Dose: 5 mg Haloperidol (Haldol Injection (Fast Acting) -) 2 mg IM Q4H PRN PRN Reason: AGITATION Last Admin: 06/11/16 03:17 Dose: 2 mg Heparin Sodium (Porcine) (Heparin -) 5,000 unit SQ TID [facility] Last Admin: 06/16/16 05:53 Dose: 5,000 unit Potassium Chloride/Dextrose/Sod Cl (D5-1/2ns+20 Meq Kcl -) 1,000 mls @ 75 mls/ hr IV ASDIR [facility] Last Admin: 06/16/16 06:49 Dose: 75 mls/hr Ampicillin Sodium 1 gm/ Sodium (Chloride) 100 mls @ 200 mls/hr IVPB Q8H-IV [facility] Last Admin: 06/16/16 09:51 Dose: 200 mls/hr Lactobacillus Acidophilus (Bacid -) 1 tab PO DAILY [facility] Last Admin: 06/16/16 09:52 Dose: 1 tab Lorazepam (Ativan -) 0.5 mg PO HS [facility] Last Admin: 06/15/16 21:46 Dose: 0.5 mg Metoprolol Succinate (Toprol Xl -) 25 mg PO DAILY [facility] Last Admin: 06/16/16 09:52 Dose: 25 mg Multi-Ingredient Ointment (Zinc Oxide) 1 applic TP TID PRN Last Admin: 06/16/16 09:52 Dose: 1 applic Pantoprazole Sodium (Protonix -) 40 mg PO DAILY [facility] Last Admin: 06/16/16 09:52 Dose: 40 mg Tamsulosin HCl (Flomax -) 0.4 mg PO [facility] Last Admin: 06/15/16 21:45 Dose: 0.4 mg Trazodone HCl (Desyrel -) 37.5 mg PO [facility] Last Admin: 06/15/16 21:45 Dose: 37.5 mg - Objective Vital Signs: Vital Signs Temperature 98.2 F 06/16/16 10:00 Pulse Rate 70 06/16/16 10:00 Respiratory Rate 18 06/16/16 10:00 Blood Pressure 131/65 06/16/16 10:00 O2 Sat by Pulse Oximetry (%) 97 06/16/16 09:00 Constitutional: Yes: No Distress, Calm Cardiovascular: Yes: Regular Rate and Rhythm Respiratory: Yes: Regular, CTA Bilaterally Gastrointestinal: Yes: Normal Bowel Sounds, Soft Genitourinary: Yes: [place] Present Musculoskeletal: Yes: Other Extremities: Yes: WNL Neurological: Yes: Alert, Other Labs: CBC, BMP 06/16/16 06:00 06/16/16 06:30 INR, PTT INR 1.41 (0.82-1.09) H 06/10/16 10:13 Assessment/Plan Problem List - Problems (1) Sepsis Code(s): A41.9 - SEPSIS, UNSPECIFIED ORGANISM Qualifiers: Sepsis type: sepsis due to unspecified organism Qualified Code(s): A41.9 - Sepsis, unspecified organism (2) UTI (urinary tract infection) Code(s): N39.0 - URINARY TRACT INFECTION, SITE NOT SPECIFIED Qualifiers: Urinary tract infection type: acute cystitis Hematuria presence: with hematuria Qualified Code(s): N30.01 - Acute cystitis with hematuria (3) Lactic acid acidosis Code(s): E87.2 - ACIDOSIS (4) Metabolic encephalopathy Code(s): G93.41 - METABOLIC ENCEPHALOPATHY (5) HTN (hypertension) Code(s): I10 - ESSENTIAL (PRIMARY) HYPERTENSION (6) Dementia Code(s): F03.90 - UNSPECIFIED DEMENTIA WITHOUT BEHAVIORAL DISTURBANCE 7 gram positive bacteremia lactic acid resolved wbc normal plan continue current abx patient repeat blood cx negative rest continue as per team continue to monitor
[2016-06-16] MEDS: MAGNESIUM OXIDE 400 MG TABLET (FP) PO SCH ×2 (12:57→21:39)
[2016-06-16] MEDS: NAPH,MB-DB/K PH,MBDB POWDER PACKET PO SCH ×2 (12:58→21:40)
[2016-06-16] MEDS: DRONABINOL 2.5 MG CAPSULE PO SCH ×2 (12:58→18:00)
--- NOTE | 2016-06-16 12:58 | PN ---
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, Physician Chief Complaint: Unable to obtain secondary to mental status - Current Medication List Current Medications: Active Medications Acetaminophen (Tylenol -) 650 mg PO Q4H PRN PRN Reason: FEVER OR PAIN Last Admin: 06/12/16 12:27 Dose: 650 mg Ascorbic Acid (Vitamin C -) 500 mg PO DAILY [facility] Last Admin: 06/16/16 09:52 Dose: 500 mg Atorvastatin Calcium (Lipitor -) 10 mg PO HS [facility] Last Admin: 06/15/16 21:45 Dose: 10 mg Collagenase (Santyl -) 1 applic TP DAILY [facility] Last Admin: 06/16/16 09:53 Dose: 1 applic Dronabinol (Marinol -) 2.5 mg PO BIDLS [facility] Last Admin: 06/15/16 17:40 Dose: 2.5 mg Finasteride (Proscar -) 5 mg PO DAILY [facility] Last Admin: 06/16/16 09:52 Dose: 5 mg Haloperidol (Haldol Injection (Fast Acting) -) 2 mg IM Q4H PRN PRN Reason: AGITATION Last Admin: 06/11/16 03:17 Dose: 2 mg Heparin Sodium (Porcine) (Heparin -) 5,000 unit SQ TID [facility] Last Admin: 06/16/16 05:53 Dose: 5,000 unit Potassium Chloride/Dextrose/Sod Cl (D5-1/2ns+20 Meq Kcl -) 1,000 mls @ 75 mls/ hr IV ASDIR [facility] Last Admin: 06/16/16 06:49 Dose: 75 mls/hr Ampicillin Sodium 1 gm/ Sodium (Chloride) 100 mls @ 200 mls/hr IVPB Q8H-IV [facility] Last Admin: 06/16/16 09:51 Dose: 200 mls/hr Lactobacillus Acidophilus (Bacid -) 1 tab PO DAILY [facility] Last Admin: 06/16/16 09:52 Dose: 1 tab Lorazepam (Ativan -) 0.5 mg PO HS [facility] Last Admin: 06/15/16 21:46 Dose: 0.5 mg Magnesium Oxide (Mag-Ox -) 400 mg PO BID [facility] Metoprolol Succinate (Toprol Xl -) 25 mg PO DAILY [facility] Last Admin: 06/16/16 09:52 Dose: 25 mg Multi-Ingredient Ointment (Zinc Oxide) 1 applic TP TID PRN Last Admin: 06/16/16 09:52 Dose: 1 applic Pantoprazole Sodium (Protonix -) 40 mg PO DAILY [facility] Last Admin: 06/16/16 09:52 Dose: 40 mg Potassium Phos/Sodium Phos (Phos-Nak Packet -) 1 packet PO BID [facility] Tamsulosin HCl (Flomax -) 0.4 mg PO HS [facility] Last Admin: 06/15/16 21:45 Dose: 0.4 mg Trazodone HCl (Desyrel -) 37.5 mg PO HS [facility] Last Admin: 06/15/16 21:45 Dose: 37.5 mg - Objective Vital Signs: Vital Signs Temperature 98.2 F 06/16/16 10:00 Pulse Rate 70 06/16/16 10:00 Respiratory Rate 18 06/16/16 10:00 Blood Pressure 131/65 06/16/16 10:00 O2 Sat by Pulse Oximetry (%) 97 06/16/16 09:00 Constitutional: Yes: Well Nourished, No Distress, Calm Cardiovascular: Yes: Regular Rate and Rhythm. No: Gallop, Murmur, Rub Respiratory: Yes: Regular, CTA Bilaterally. No: Rales, Rhonchi, Wheezes Gastrointestinal: Yes: Normal Bowel Sounds, Soft. No: Distention, Tenderness Extremities: Yes: WNL Edema: No Labs: CBC, BMP 06/16/16 06:00 06/16/16 06:30 INR, PTT INR 1.41 (0.82-1.09) H 06/10/16 10:13 Problem List - Problems (1) Sepsis Code(s): A41.9 - SEPSIS, UNSPECIFIED ORGANISM Qualifiers: Sepsis type: sepsis due to unspecified organism Qualified Code(s): A41.9 - Sepsis, unspecified organism (2) UTI (urinary tract infection) Code(s): N39.0 - URINARY TRACT INFECTION, SITE NOT SPECIFIED Qualifiers: Urinary tract infection type: acute cystitis Hematuria presence: with hematuria Qualified Code(s): N30.01 - Acute cystitis with hematuria (3) Lactic acid acidosis Code(s): E87.2 - ACIDOSIS (4) Metabolic encephalopathy Code(s): G93.41 - METABOLIC ENCEPHALOPATHY (5) HTN (hypertension) Code(s): I10 - ESSENTIAL (PRIMARY) HYPERTENSION (6) Dementia Code(s): F03.90 - UNSPECIFIED DEMENTIA WITHOUT BEHAVIORAL DISTURBANCE Assessment/Plan (1) Sepsis Assessment/Plan: -urine growing enterococcus -original blood cultures positive for enterococcus, repeat blood cultures currently NGTD -ID following -antibiotics changed to ampicillin, day 6 Code(s): A41.9 - SEPSIS, UNSPECIFIED ORGANISM Qualifiers: Sepsis type: sepsis due to unspecified organism Qualified Code(s): A41.9 - Sepsis, unspecified organism (2) UTI (urinary tract infection) Assessment/Plan: -with hematuria but now resolved -appreciate urology assistance -source of sepsis -on antibiotics Code(s): N39.0 - URINARY TRACT INFECTION, SITE NOT SPECIFIED Qualifiers: Urinary tract infection type: acute cystitis Hematuria presence: with hematuria Qualified Code(s): N30.01 - Acute cystitis with hematuria (3) Lactic acid acidosis Assessment/Plan: -resolved Code(s): E87.2 - ACIDOSIS (4) Metabolic encephalopathy Assessment/Plan: -at baseline Code(s): G93.41 - METABOLIC ENCEPHALOPATHY (5) HTN (hypertension) Assessment/Plan: -continue toprol and amlodipine with hold parameters Code(s): I10 - ESSENTIAL (PRIMARY) HYPERTENSION (6) Dementia Assessment/Plan: -at baseline Code(s): F03.90 - UNSPECIFIED DEMENTIA WITHOUT BEHAVIORAL DISTURBANCE (7) Hypernatremia -resolved -continue current IVF (8) Hypomagnesemia -replace (9) FTT -add ensure
[2016-06-16] MEDS: LORazepam 0.5 MG TABLET PO SCH (21:39)
[2016-06-16] MEDS: traZODone HCL 50 MG TABLET (FP) PO SCH (21:39)
[2016-06-16] MEDS: ATORVASTATIN CA 10 MG TABLET (FP) PO SCH (21:39)
[2016-06-16] MEDS: TAMSULOSIN HCL 0.4 MG CAP.ER.24H (FP) PO SCH (21:40)
[2016-06-17] MEDS: AMPICILLIN - 1 GM in SODIUM CHLORIDE 100 ML IVPB SCH ×3 (02:15→17:21)
[2016-06-17] MEDS: HEPARIN NA (PORCINE) 5,000 UNITS/ML 1ML VIAL SQ SCH ×3 (06:25→21:46)
[2016-06-17 07:35] LABS: BASOPHIL 0.3 % (0-2.0); EOSINOPHIL 3.6 % (0-4.5); MCH 27.3 pg (25.7-33.7); MCHC 33.1 g/dl (32.0-35.9); MEAN CELL VOLUME 82.7 fl (80-96); MEAN PLT VOLUME 8.2 fl (7.5-11.1); NEUTROPHILS 69.9 % (42.8-82.8); PLATELET COUNT 208 K/MM3 (134-434); RDW 16.7 % (11.9-15.9); WHITE BLOOD COUNT 6.9 K/mm3 (4.0-10.0)
[2016-06-17 08:18] LABS: CALCIUM 7.1 mg/dL (8.5-10.1); COCKROFT - GAULT 112.21; CREATININE 0.5 mg/dL (0.7-1.3); MAGNESIUM 1.5 mg/dL (1.8-2.4); PHOSPHOROUS 2.4 mg/dL (2.5-4.9)
[2016-06-17] MEDS ORDERED: PT OWN MED DRAWER 7, Y5N ONE ×2 (09:44→17:20)
[2016-06-17] MEDS: METOPROLOL SUCCINATE 25 MG TAB.SR.24H (FP) PO SCH (09:51)
[2016-06-17] MEDS: MAGNESIUM OXIDE 400 MG TABLET (FP) PO SCH ×2 (09:51→21:46)
[2016-06-17] MEDS: FINASTERIDE 5 MG TABLET (FP) PO SCH (09:51)
[2016-06-17] MEDS: PANTOPRAZOLE 40 MG TABLET (FP) PO SCH (09:51)
[2016-06-17] MEDS: LACTOBACILLUS ACIDOPHILUS 1 EACH TAB (FP) PO SCH (09:51)
[2016-06-17] MEDS: COLLAGENASE CLOSTRIDIUM HIST. 30 GRAMS TUBE TP SCH (09:52)
[2016-06-17] MEDS: ASCORBIC ACID 500 MG TABLET (FP) PO SCH (09:52)
[2016-06-17] MEDS: NAPH,MB-DB/K PH,MBDB POWDER PACKET PO SCH ×2 (09:52→21:46)
--- NOTE | 2016-06-17 11:21 | PN ---
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, Physician History of Present Illness: patient stable no new issues calm because of condition no gross interaction - Current Medication List Current Medications: Active Medications Acetaminophen (Tylenol -) 650 mg PO Q4H PRN PRN Reason: FEVER OR PAIN Last Admin: 06/12/16 12:27 Dose: 650 mg Ascorbic Acid (Vitamin C -) 500 mg PO DAILY [facility] Last Admin: 06/17/16 09:52 Dose: 500 mg Atorvastatin Calcium (Lipitor -) 10 mg PO HS [facility] Last Admin: 06/16/16 21:39 Dose: 10 mg Collagenase (Santyl -) 1 applic TP DAILY [facility] Last Admin: 06/17/16 09:52 Dose: 1 applic Dronabinol (Marinol -) 2.5 mg PO BIDLS [facility] Last Admin: 06/16/16 18:00 Dose: 2.5 mg Finasteride (Proscar -) 5 mg PO DAILY [facility] Last Admin: 06/17/16 09:51 Dose: 5 mg Haloperidol (Haldol Injection (Fast Acting) -) 2 mg IM Q4H PRN PRN Reason: AGITATION Last Admin: 06/11/16 03:17 Dose: 2 mg Heparin Sodium (Porcine) (Heparin -) 5,000 unit SQ TID [facility] Last Admin: 06/17/16 06:25 Dose: 5,000 unit Potassium Chloride/Dextrose/Sod Cl (D5-1/2ns+20 Meq Kcl -) 1,000 mls @ 75 mls/ hr IV ASDIR [facility] Last Admin: 06/16/16 18:00 Dose: Not Given Ampicillin Sodium 1 gm/ Sodium (Chloride) 100 mls @ 200 mls/hr IVPB Q8H-IV [facility] Last Admin: 06/17/16 09:46 Dose: 200 mls/hr Lactobacillus Acidophilus (Bacid -) 1 tab PO DAILY [facility] Last Admin: 06/17/16 09:51 Dose: 1 tab Lorazepam (Ativan -) 0.5 mg PO HS [facility] Last Admin: 06/16/16 21:39 Dose: 0.5 mg Magnesium Oxide (Mag-Ox -) 400 mg PO BID [facility] Last Admin: 06/17/16 09:51 Dose: 400 mg Metoprolol Succinate (Toprol Xl -) 25 mg PO DAILY [facility] Last Admin: 06/17/16 09:51 Dose: 25 mg Multi-Ingredient Ointment (Zinc Oxide) 1 applic TP TID [facility]N Last Admin: 06/16/16 09:52 Dose: 1 applic Pantoprazole Sodium (Protonix -) 40 mg PO DAILY [facility] Last Admin: 06/17/16 09:51 Dose: 40 mg Potassium Phos/Sodium Phos (Phos-Nak Packet -) 1 packet PO BID [facility] Last Admin: 06/17/16 09:52 Dose: 1 packet Tamsulosin HCl (Flomax -) 0.4 mg PO [facility] Last Admin: 06/16/16 21:40 Dose: 0.4 mg Trazodone HCl (Desyrel -) 37.5 mg PO HS [facility] Last Admin: 06/16/16 21:39 Dose: 37.5 mg - Objective Vital Signs: Vital Signs Temperature 99.1 F 06/17/16 10:00 Pulse Rate 83 06/17/16 10:00 Respiratory Rate 18 06/17/16 10:00 Blood Pressure 124/75 06/17/16 10:00 O2 Sat by Pulse Oximetry (%) 96 06/17/16 09:00 Constitutional: Yes: No Distress, Calm Cardiovascular: Yes: S1, S2 Respiratory: Yes: Regular, CTA Bilaterally Gastrointestinal: Yes: Normal Bowel Sounds, Soft Genitourinary: Yes: [place] Present Musculoskeletal: Yes: WNL Extremities: Yes: WNL Neurological: Yes: Alert, Other Psychiatric: Yes: Alert, Other Labs: CBC, BMP 06/17/16 06:15 06/17/16 06:15 INR, PTT INR 1.41 (0.82-1.09) H 06/10/16 10:13 Assessment/Plan Problem List - Problems (1) Sepsis Code(s): A41.9 - SEPSIS, UNSPECIFIED ORGANISM Qualifiers: Sepsis type: sepsis due to unspecified organism Qualified Code(s): A41.9 - Sepsis, unspecified organism (2) UTI (urinary tract infection) Code(s): N39.0 - URINARY TRACT INFECTION, SITE NOT SPECIFIED Qualifiers: Urinary tract infection type: acute cystitis Hematuria presence: with hematuria Qualified Code(s): N30.01 - Acute cystitis with hematuria (3) Lactic acid acidosis Code(s): E87.2 - ACIDOSIS (4) Metabolic encephalopathy Code(s): G93.41 - METABOLIC ENCEPHALOPATHY (5) HTN (hypertension) Code(s): I10 - ESSENTIAL (PRIMARY) HYPERTENSION (6) Dementia Code(s): F03.90 - UNSPECIFIED DEMENTIA WITHOUT BEHAVIORAL DISTURBANCE 7 gram positive bacteremia plan continue current abx patient repeat blood cx negative will complete a course of total [address] hydration
[2016-06-17] MEDS ORDERED: PICC LINE 8 ML FLUSH PROTOCOL IVPUSH PRN (11:38)
[2016-06-17] MEDS: DRONABINOL 2.5 MG CAPSULE PO SCH ×2 (12:16→17:21)
[2016-06-17] MEDS ORDERED: MAGNESIUM SULF 50% (8.12 MEQ/2 ML-1 GM VIAL) IVPB ONE (12:30)
--- NOTE | 2016-06-17 13:11 | PN ---
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, Physician Chief Complaint: Mr Mcdonald is minimally talkative today, says he feels fine. Unable to obtain other subjective but this is the most interactive patient has been with me this admission. - Current Medication List Current Medications: Active Medications Acetaminophen (Tylenol -) 650 mg PO Q4H PRN PRN Reason: FEVER OR PAIN Last Admin: 06/12/16 12:27 Dose: 650 mg Ascorbic Acid (Vitamin C -) 500 mg PO DAILY [facility] Last Admin: 06/17/16 09:52 Dose: 500 mg Atorvastatin Calcium (Lipitor -) 10 mg PO HS [facility] Last Admin: 06/16/16 21:39 Dose: 10 mg Collagenase (Santyl -) 1 applic TP DAILY [facility] Last Admin: 06/17/16 09:52 Dose: 1 applic Dronabinol (Marinol -) 2.5 mg PO BIDLS [facility] Last Admin: 06/17/16 12:16 Dose: 2.5 mg Finasteride (Proscar -) 5 mg PO DAILY [facility] Last Admin: 06/17/16 09:51 Dose: 5 mg Haloperidol (Haldol Injection (Fast Acting) -) 2 mg IM Q4H PRN PRN Reason: AGITATION Last Admin: 06/11/16 03:17 Dose: 2 mg Heparin Sodium (Porcine) (Heparin -) 5,000 unit SQ TID [facility] Last Admin: 06/17/16 06:25 Dose: 5,000 unit IV Flush (Picc Line Flush) 8 ml IVPUSH PRN PRN PRN Reason: Protocol Potassium Chloride/Dextrose/Sod Cl (D5-1/2ns+20 Meq Kcl -) 1,000 mls @ 75 mls/ hr IV ASDIR [facility] Last Admin: 06/16/16 18:00 Dose: Not Given Ampicillin Sodium 1 gm/ Sodium (Chloride) 100 mls @ 200 mls/hr IVPB Q8H-IV [facility] Last Admin: 06/17/16 09:46 Dose: 200 mls/hr Lactobacillus Acidophilus (Bacid -) 1 tab PO DAILY [facility] Last Admin: 06/17/16 09:51 Dose: 1 tab Lorazepam (Ativan -) 0.5 mg PO HS [facility] Last Admin: 06/16/16 21:39 Dose: 0.5 mg Magnesium Oxide (Mag-Ox -) 400 mg PO BID [facility] Last Admin: 06/17/16 09:51 Dose: 400 mg Metoprolol Succinate (Toprol Xl -) 25 mg PO DAILY [facility] Last Admin: 06/17/16 09:51 Dose: 25 mg Multi-Ingredient Ointment (Zinc Oxide) 1 applic TP TID [facility] Last Admin: 06/16/16 09:52 Dose: 1 applic Pantoprazole Sodium (Protonix -) 40 mg PO DAILY [facility] Last Admin: 06/17/16 09:51 Dose: 40 mg Potassium Phos/Sodium Phos (Phos-Nak Packet -) 1 packet PO BID [facility] Last Admin: 06/17/16 09:52 Dose: 1 packet Tamsulosin HCl (Flomax -) 0.4 mg PO [facility] Last Admin: 06/16/16 21:40 Dose: 0.4 mg Trazodone HCl (Desyrel -) 37.5 mg PO [facility] Last Admin: 06/16/16 21:39 Dose: 37.5 mg - Objective Vital Signs: Vital Signs Temperature 99.1 F 06/17/16 10:00 Pulse Rate 83 06/17/16 10:00 Respiratory Rate 18 06/17/16 10:00 Blood Pressure 124/75 06/17/16 10:00 O2 Sat by Pulse Oximetry (%) 96 06/17/16 09:00 Constitutional: Yes: Well Nourished, No Distress, Calm Cardiovascular: Yes: Regular Rate and Rhythm. No: Gallop, Murmur, Rub Respiratory: Yes: Regular, CTA Bilaterally. No: Rales, Rhonchi, Wheezes Gastrointestinal: Yes: Normal Bowel Sounds, Soft. No: Distention, Tenderness Extremities: Yes: WNL Edema: No Labs: CBC, BMP 06/17/16 06:15 06/17/16 06:15 INR, PTT INR 1.41 (0.82-1.09) H 06/10/16 10:13 Problem List - Problems (1) Sepsis Code(s): A41.9 - SEPSIS, UNSPECIFIED ORGANISM Qualifiers: Sepsis type: sepsis due to unspecified organism Qualified Code(s): A41.9 - Sepsis, unspecified organism (2) UTI (urinary tract infection) Code(s): N39.0 - URINARY TRACT INFECTION, SITE NOT SPECIFIED Qualifiers: Urinary tract infection type: acute cystitis Hematuria presence: with hematuria Qualified Code(s): N30.01 - Acute cystitis with hematuria (3) Lactic acid acidosis Code(s): E87.2 - ACIDOSIS (4) Metabolic encephalopathy Code(s): G93.41 - METABOLIC ENCEPHALOPATHY (5) HTN (hypertension) Code(s): I10 - ESSENTIAL (PRIMARY) HYPERTENSION (6) Dementia Code(s): F03.90 - UNSPECIFIED DEMENTIA WITHOUT BEHAVIORAL DISTURBANCE Assessment/Plan (1) Sepsis Assessment/Plan: -urine growing enterococcus -original blood cultures positive for enterococcus, repeat blood cultures currently NGTD -ID following -antibiotics changed to ampicillin, day 08/21 -will d/w ID about possible outpatient antibiotic regimen Code(s): A41.9 - SEPSIS, UNSPECIFIED ORGANISM Qualifiers: Sepsis type: sepsis due to unspecified organism Qualified Code(s): A41.9 - Sepsis, unspecified organism (2) UTI (urinary tract infection) Assessment/Plan: -with hematuria but now resolved -appreciate urology assistance -source of sepsis -on antibiotics Code(s): N39.0 - URINARY TRACT INFECTION, SITE NOT SPECIFIED Qualifiers: Urinary tract infection type: acute cystitis Hematuria presence: with hematuria Qualified Code(s): N30.01 - Acute cystitis with hematuria (3) Lactic acid acidosis Assessment/Plan: -resolved Code(s): E87.2 - ACIDOSIS (4) Metabolic encephalopathy Assessment/Plan: -at baseline Code(s): G93.41 - METABOLIC ENCEPHALOPATHY (5) HTN (hypertension) Assessment/Plan: -continue toprol and amlodipine with hold parameters Code(s): I10 - ESSENTIAL (PRIMARY) HYPERTENSION (6) Dementia Assessment/Plan: -at baseline Code(s): F03.90 - UNSPECIFIED DEMENTIA WITHOUT BEHAVIORAL DISTURBANCE (7) Hypernatremia -resolved -continue current IVF (8) Hypomagnesemia -replace (9) FTT -continue ensure
[2016-06-17] MEDS: D5-1/2NS+20 MEQ KCL - 1,000 ML IV SCH (17:17)
--- NOTE | 2016-06-17 17:57 | PN ---
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 (short form) - Note 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: Chief Complaint: tachy History of Present Illness: Patient awake. Follows commands, able to give one word responses. Denies discomfort. Current Medications Acetaminophen (Tylenol -) 650 mg PO Q4H PRN PRN Reason: FEVER OR PAIN Last Admin: 06/12/16 12:27 Dose: 650 mg Ascorbic Acid (Vitamin C -) 500 mg PO DAILY [facility] Last Admin: 06/17/16 09:52 Dose: 500 mg Atorvastatin Calcium (Lipitor -) 10 mg PO HS [facility] Last Admin: 06/16/16 21:39 Dose: 10 mg Collagenase (Santyl -) 1 applic TP DAILY [facility] Last Admin: 06/17/16 09:52 Dose: 1 applic Dronabinol (Marinol -) 2.5 mg PO BIDLS [facility] Last Admin: 06/17/16 17:21 Dose: 2.5 mg Finasteride (Proscar -) 5 mg PO DAILY [facility] Last Admin: 06/17/16 09:51 Dose: 5 mg Haloperidol (Haldol Injection (Fast Acting) -) 2 mg IM Q4H PRN PRN Reason: AGITATION Last Admin: 06/11/16 03:17 Dose: 2 mg Heparin Sodium (Porcine) (Heparin -) 5,000 unit SQ TID [facility] Last Admin: 06/17/16 15:08 Dose: 5,000 unit IV Flush (Picc Line Flush) 8 ml IVPUSH PRN PRN PRN Reason: Protocol Potassium Chloride/Dextrose/Sod Cl (D5-1/2ns+20 Meq Kcl -) 1,000 mls @ 75 mls/ hr IV ASDIR [facility] Last Admin: 06/17/16 17:17 Dose: 75 mls/hr Ampicillin Sodium 1 gm/ Sodium (Chloride) 100 mls @ 200 mls/hr IVPB Q8H-IV [facility] Last Admin: 06/17/16 17:21 Dose: 200 mls/hr Lactobacillus Acidophilus (Bacid -) 1 tab PO DAILY [facility] Last Admin: 06/17/16 09:51 Dose: 1 tab Lorazepam (Ativan -) 0.5 mg PO HS [facility] Last Admin: 06/16/16 21:39 Dose: 0.5 mg Magnesium Oxide (Mag-Ox -) 400 mg PO BID [facility] Last Admin: 06/17/16 09:51 Dose: 400 mg Metoprolol Succinate (Toprol Xl -) 25 mg PO DAILY [facility] Last Admin: 06/17/16 09:51 Dose: 25 mg Multi-Ingredient Ointment (Zinc Oxide) 1 applic TP TID [facility] Last Admin: 06/16/16 09:52 Dose: 1 applic Pantoprazole Sodium (Protonix -) 40 mg PO DAILY [facility] Last Admin: 06/17/16 09:51 Dose: 40 mg Potassium Phos/Sodium Phos (Phos-Nak Packet -) 1 packet PO BID [facility] Last Admin: 06/17/16 09:52 Dose: 1 packet Tamsulosin HCl (Flomax -) 0.4 mg PO [facility] Last Admin: 06/16/16 21:40 Dose: 0.4 mg Trazodone HCl (Desyrel -) 37.5 mg PO [facility] Last Admin: 06/16/16 21:39 Dose: 37.5 mg Vital Signs - 24 hr 06/16/16 06/17/16 06/17/16 21:00 06:22 08:36 Temperature 98 F 99.1 F Pulse Rate 87 82 83 Respiratory 18 20 18 Rate Blood Pressure 135/68 146/82 124/75 O2 Sat by Pulse 97 Oximetry (%) 06/17/16 06/17/16 06/17/16 09:00 10:00 13:59 Temperature 99.1 F 986 F H Pulse Rate 83 78 Respiratory 18 16 Rate Blood Pressure 124/75 128/74 O2 Sat by Pulse 96 Oximetry (%) 06/17/16 17:00 Temperature 98.1 F Pulse Rate 74 Respiratory 20 Rate Blood Pressure 147/86 O2 Sat by Pulse Oximetry (%) Intake & Output 06/15/16 06/16/16 06/17/16 06/18/16 07:59 07:59 07:59 07:59 Intake Total 2125 2125 1490 1000 Output Total 400 1400 650 400 Balance 1725 725 840 600 Constitutional: Yes: Well Nourished, No Distress, Calm Cardiovascular: Yes: Regular Rate and Rhythm with occasional ectopy, S1, S2. No : Gallop, Murmur Respiratory: Yes: Regular, CTA Bilaterally No: Accessory Muscle Use, Rales, Wheezes Extremities: No: Cold Edema: No Neurological: No: Alert, Oriented, Seizure Psychiatric: No: Agitated Labs: CBC, BMP 06/17/16 06:15 06/17/16 06:15 Laboratory Tests 06/17/16 06:15 Magnesium 1.5 L - ....Imaging EKG: Other (prior tele: NSR, artifact; brief PAT) Assessment/Plan EKG 06/10 12:21: uninterpretable due to baseline artifact EKG 06/10 14:46 Poor quality/baseline. Sinus tach with diffuse ST abnormalities. anterior ST sagging. possible inferior q waves. low limb voltages. abd CT: fecal retention, sacral decub with surrounding subcut air/abscess a/p: 80 yo with h/o htn, bph, advanced dementia who sent to ER for hematuria and noted to have UTI with sepsis complicated by elevated cardiac enzymes. positive trops: - intermediate range trop elevation with flat trend and low ck index, not consistent with acs, likely related to likely demand in setting of infection and tachycardia. - started low dose atorvastatin. can consider asa per pmd/urology once UTI resolved and no further risk of recurrent hematuria. - cont metoprolol - echo done here this admit was non-diagnostic due to pt agitation/lack of cooperation htn - bp initially on lower side so norvasc held (in setting of sepsis) - bp's currently stable on metoprolol alone urosepsis/hematuria -enterococcus in blood and urine -abx per ID - remains on IVF, no signs of volume overlaod PAT: -brief run atrial tach when on tele -cont metopr, currently rate controlled. -observe. lyte repletion prn
[2016-06-17] MEDS: LORazepam 0.5 MG TABLET PO SCH (21:45)
[2016-06-17] MEDS: traZODone HCL 50 MG TABLET (FP) PO SCH (21:45)
[2016-06-17] MEDS: ATORVASTATIN CA 10 MG TABLET (FP) PO SCH (21:45)
[2016-06-17] MEDS: TAMSULOSIN HCL 0.4 MG CAP.ER.24H (FP) PO SCH (21:45)
[2016-06-18] MEDS ORDERED: PT OWN MED DRAWER 7, Y5N ONE (01:48)
[2016-06-18] MEDS: AMPICILLIN - 1 GM in SODIUM CHLORIDE 100 ML IVPB SCH ×3 (01:57→17:57)
[2016-06-18] MEDS: HEPARIN NA (PORCINE) 5,000 UNITS/ML 1ML VIAL SQ SCH ×3 (06:26→21:04)
[2016-06-18] MEDS: ASCORBIC ACID 500 MG TABLET (FP) PO SCH (09:55)
[2016-06-18] MEDS: MAGNESIUM OXIDE 400 MG TABLET (FP) PO SCH ×2 (09:55→21:05)
[2016-06-18] MEDS: METOPROLOL SUCCINATE 25 MG TAB.SR.24H (FP) PO SCH (09:55)
[2016-06-18] MEDS: LACTOBACILLUS ACIDOPHILUS 1 EACH TAB (FP) PO SCH (09:55)
[2016-06-18] MEDS: PANTOPRAZOLE 40 MG TABLET (FP) PO SCH (09:56)
[2016-06-18] MEDS: COLLAGENASE CLOSTRIDIUM HIST. 30 GRAMS TUBE TP SCH (09:56)
[2016-06-18] MEDS: FINASTERIDE 5 MG TABLET (FP) PO SCH (09:56)
[2016-06-18] MEDS: NAPH,MB-DB/K PH,MBDB POWDER PACKET PO SCH ×2 (09:56→21:08)
[2016-06-18] MEDS: D5-1/2NS+20 MEQ KCL - 1,000 ML IV SCH ×2 (09:57→16:48)
[2016-06-18] MEDS: ZINC OXIDE 20% TOPICAL OINTMENT 30 GM TUBE TP PRN (09:57)
[2016-06-18] MEDS: DRONABINOL 2.5 MG CAPSULE PO SCH ×2 (12:44→17:57)
[2016-06-18] MEDS ORDERED: MAGNESIUM SULF 50% (8.12 MEQ/2 ML-1 GM VIAL) IVPB ONE (14:15)
[2016-06-18] MEDS ORDERED: MAGNESIUM SULF 50% (8.12 MEQ/2 ML-1 GM VIAL) ONE (16:39)
--- NOTE | 2016-06-18 16:39 | PN ---
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, Physician Chief Complaint: Mr Mcdonald more interactive today. Says he is feeling fine. Denies pain. Cannot obtain further subjective. - Current Medication List Current Medications: Active Medications Acetaminophen (Tylenol -) 650 mg PO Q4H PRN PRN Reason: FEVER OR PAIN Last Admin: 06/12/16 12:27 Dose: 650 mg Ascorbic Acid (Vitamin C -) 500 mg PO DAILY [facility] Last Admin: 06/18/16 09:55 Dose: 500 mg Atorvastatin Calcium (Lipitor -) 10 mg PO HS [facility] Last Admin: 06/17/16 21:45 Dose: 10 mg Collagenase (Santyl -) 1 applic TP DAILY [facility] Last Admin: 06/18/16 09:56 Dose: 1 applic Dronabinol (Marinol -) 2.5 mg PO BIDLS [facility] Last Admin: 06/18/16 12:44 Dose: 2.5 mg Finasteride (Proscar -) 5 mg PO DAILY [facility] Last Admin: 06/18/16 09:56 Dose: 5 mg Haloperidol (Haldol Injection (Fast Acting) -) 2 mg IM Q4H PRN PRN Reason: AGITATION Last Admin: 06/11/16 03:17 Dose: 2 mg Heparin Sodium (Porcine) (Heparin -) 5,000 unit SQ TID [facility] Last Admin: 06/18/16 14:19 Dose: Not Given IV Flush (Picc Line Flush) 8 ml IVPUSH PRN PRN PRN Reason: Protocol Potassium Chloride/Dextrose/Sod Cl (D5-1/2ns+20 Meq Kcl -) 1,000 mls @ 75 mls/ hr IV ASDIR [facility] Last Admin: 06/18/16 09:57 Dose: 75 mls/hr Ampicillin Sodium 1 gm/ Sodium (Chloride) 100 mls @ 200 mls/hr IVPB Q8H-IV [facility] Last Admin: 06/18/16 09:55 Dose: 200 mls/hr Lactobacillus Acidophilus (Bacid -) 1 tab PO DAILY [facility] Last Admin: 06/18/16 09:55 Dose: 1 tab Lorazepam (Ativan -) 0.5 mg PO HS [facility] Last Admin: 06/17/16 21:45 Dose: 0.5 mg Magnesium Oxide (Mag-Ox -) 400 mg PO BID [facility] Last Admin: 06/18/16 09:55 Dose: 400 mg Metoprolol Succinate (Toprol Xl -) 25 mg PO DAILY [facility] Last Admin: 06/18/16 09:55 Dose: 25 mg Multi-Ingredient Ointment (Zinc Oxide) 1 applic TP TID PRN Last Admin: 06/18/16 09:57 Dose: 1 applic Pantoprazole Sodium (Protonix -) 40 mg PO DAILY [facility] Last Admin: 06/18/16 09:56 Dose: 40 mg Potassium Phos/Sodium Phos (Phos-Nak Packet -) 1 packet PO BID [facility] Last Admin: 06/18/16 09:56 Dose: 1 packet Tamsulosin HCl (Flomax -) 0.4 mg PO [facility] Last Admin: 06/17/16 21:45 Dose: 0.4 mg Trazodone HCl (Desyrel -) 37.5 mg PO [facility] Last Admin: 06/17/16 21:45 Dose: 37.5 mg - Objective Vital Signs: Vital Signs Temperature 98.4 F 06/18/16 14:14 Pulse Rate 75 06/18/16 14:14 Respiratory Rate 16 06/18/16 14:14 Blood Pressure 136/63 06/18/16 14:14 O2 Sat by Pulse Oximetry (%) 96 06/18/16 09:00 Constitutional: Yes: Well Nourished, No Distress, Calm Cardiovascular: Yes: Regular Rate and Rhythm. No: Gallop, Murmur, Rub Respiratory: Yes: Regular, CTA Bilaterally. No: Rales, Rhonchi, Wheezes Gastrointestinal: Yes: Normal Bowel Sounds, Soft. No: Distention, Tenderness Extremities: Yes: WNL Edema: No Labs: CBC, BMP 06/17/16 06:15 06/17/16 06:15 INR, PTT INR 1.41 (0.82-1.09) H 06/10/16 10:13 Problem List - Problems (1) Sepsis Code(s): A41.9 - SEPSIS, UNSPECIFIED ORGANISM Qualifiers: Sepsis type: sepsis due to unspecified organism Qualified Code(s): A41.9 - Sepsis, unspecified organism (2) UTI (urinary tract infection) Code(s): N39.0 - URINARY TRACT INFECTION, SITE NOT SPECIFIED Qualifiers: Urinary tract infection type: acute cystitis Hematuria presence: with hematuria Qualified Code(s): N30.01 - Acute cystitis with hematuria (3) Lactic acid acidosis Code(s): E87.2 - ACIDOSIS (4) Metabolic encephalopathy Code(s): G93.41 - METABOLIC ENCEPHALOPATHY (5) HTN (hypertension) Code(s): I10 - ESSENTIAL (PRIMARY) HYPERTENSION (6) Dementia Code(s): F03.90 - UNSPECIFIED DEMENTIA WITHOUT BEHAVIORAL DISTURBANCE Assessment/Plan (1) Sepsis Assessment/Plan: -urine growing enterococcus -original blood cultures positive for enterococcus, repeat blood cultures currently NGTD -ID following -antibiotics changed to ampicillin, day 09/21 -can transfer back to SNF to finish course Code(s): A41.9 - SEPSIS, UNSPECIFIED ORGANISM Qualifiers: Sepsis type: sepsis due to unspecified organism Qualified Code(s): A41.9 - Sepsis, unspecified organism (2) UTI (urinary tract infection) Assessment/Plan: -with hematuria but now resolved -appreciate urology assistance -source of sepsis -on antibiotics Code(s): N39.0 - URINARY TRACT INFECTION, SITE NOT SPECIFIED Qualifiers: Urinary tract infection type: acute cystitis Hematuria presence: with hematuria Qualified Code(s): N30.01 - Acute cystitis with hematuria (3) Lactic acid acidosis Assessment/Plan: -resolved Code(s): E87.2 - ACIDOSIS (4) Metabolic encephalopathy Assessment/Plan: -at baseline Code(s): G93.41 - METABOLIC ENCEPHALOPATHY (5) HTN (hypertension) Assessment/Plan: -continue toprol and amlodipine with hold parameters Code(s): I10 - ESSENTIAL (PRIMARY) HYPERTENSION (6) Dementia Assessment/Plan: -at baseline Code(s): F03.90 - UNSPECIFIED DEMENTIA WITHOUT BEHAVIORAL DISTURBANCE (7) Hypernatremia -resolved -continue current IVF (8) Hypomagnesemia -replace today (9) FTT -continue ensure Dispo -plan for discharge to SNF tomorrow
--- NOTE | 2016-06-18 16:48 | PN ---
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, Physician History of Present Illness: patient stable no new issues calm patient for picc line calm - Current Medication List Current Medications: Active Medications Acetaminophen (Tylenol -) 650 mg PO Q4H PRN PRN Reason: FEVER OR PAIN Last Admin: 06/12/16 12:27 Dose: 650 mg Ascorbic Acid (Vitamin C -) 500 mg PO DAILY [facility] Last Admin: 06/18/16 09:55 Dose: 500 mg Atorvastatin Calcium (Lipitor -) 10 mg PO HS [facility] Last Admin: 06/17/16 21:45 Dose: 10 mg Collagenase (Santyl -) 1 applic TP DAILY [facility] Last Admin: 06/18/16 09:56 Dose: 1 applic Dronabinol (Marinol -) 2.5 mg PO BIDLS [facility] Last Admin: 06/18/16 12:44 Dose: 2.5 mg Finasteride (Proscar -) 5 mg PO DAILY [facility] Last Admin: 06/18/16 09:56 Dose: 5 mg Haloperidol (Haldol Injection (Fast Acting) -) 2 mg IM Q4H PRN PRN Reason: AGITATION Last Admin: 06/11/16 03:17 Dose: 2 mg Heparin Sodium (Porcine) (Heparin -) 5,000 unit SQ TID [facility] Last Admin: 06/18/16 14:19 Dose: Not Given IV Flush (Picc Line Flush) 8 ml IVPUSH PRN PRN PRN Reason: Protocol Potassium Chloride/Dextrose/Sod Cl (D5-1/2ns+20 Meq Kcl -) 1,000 mls @ 75 mls/ hr IV ASDIR [facility] Last Admin: 06/18/16 09:57 Dose: 75 mls/hr Ampicillin Sodium 1 gm/ Sodium (Chloride) 100 mls @ 200 mls/hr IVPB Q8H-IV [facility] Last Admin: 06/18/16 09:55 Dose: 200 mls/hr Lactobacillus Acidophilus (Bacid -) 1 tab PO DAILY [facility] Last Admin: 06/18/16 09:55 Dose: 1 tab Lorazepam (Ativan -) 0.5 mg PO HS [facility] Last Admin: 06/17/16 21:45 Dose: 0.5 mg Magnesium Oxide (Mag-Ox -) 400 mg PO BID [facility] Last Admin: 06/18/16 09:55 Dose: 400 mg Metoprolol Succinate (Toprol Xl -) 25 mg PO DAILY [facility] Last Admin: 06/18/16 09:55 Dose: 25 mg Multi-Ingredient Ointment (Zinc Oxide) 1 applic TP TID PRN Last Admin: 06/18/16 09:57 Dose: 1 applic Pantoprazole Sodium (Protonix -) 40 mg PO DAILY [facility] Last Admin: 06/18/16 09:56 Dose: 40 mg Potassium Phos/Sodium Phos (Phos-Nak Packet -) 1 packet PO BID [facility] Last Admin: 06/18/16 09:56 Dose: 1 packet Tamsulosin HCl (Flomax -) 0.4 mg PO [facility] Last Admin: 06/17/16 21:45 Dose: 0.4 mg Trazodone HCl (Desyrel -) 37.5 mg PO [facility] Last Admin: 06/17/16 21:45 Dose: 37.5 mg - Objective Vital Signs: Vital Signs Temperature 98.4 F 06/18/16 14:14 Pulse Rate 75 06/18/16 14:14 Respiratory Rate 16 06/18/16 14:14 Blood Pressure 136/63 06/18/16 14:14 O2 Sat by Pulse Oximetry (%) 96 06/18/16 09:00 Constitutional: Yes: No Distress, Calm Cardiovascular: Yes: S1, S2 Respiratory: Yes: Regular, CTA Bilaterally Gastrointestinal: Yes: Normal Bowel Sounds, Soft Genitourinary: Yes: [place] Present Musculoskeletal: Yes: WNL Extremities: Yes: WNL Neurological: Yes: Alert, Oriented Psychiatric: Yes: Alert, Oriented Labs: CBC, BMP 06/17/16 06:15 06/17/16 06:15 INR, PTT INR 1.41 (0.82-1.09) H 06/10/16 10:13 Assessment/Plan Problem List - Problems (1) Sepsis Code(s): A41.9 - SEPSIS, UNSPECIFIED ORGANISM Qualifiers: Sepsis type: sepsis due to unspecified organism Qualified Code(s): A41.9 - Sepsis, unspecified organism (2) UTI (urinary tract infection) Code(s): N39.0 - URINARY TRACT INFECTION, SITE NOT SPECIFIED Qualifiers: Urinary tract infection type: acute cystitis Hematuria presence: with hematuria Qualified Code(s): N30.01 - Acute cystitis with hematuria (3) Lactic acid acidosis Code(s): E87.2 - ACIDOSIS (4) Metabolic encephalopathy Code(s): G93.41 - METABOLIC ENCEPHALOPATHY (5) HTN (hypertension) Code(s): I10 - ESSENTIAL (PRIMARY) HYPERTENSION (6) Dementia Code(s): F03.90 - UNSPECIFIED DEMENTIA WITHOUT BEHAVIORAL DISTURBANCE 7 gram positive bacteremia plan continue current abx patient repeat blood cx negative continue as per planned
[2016-06-18] MEDS: LORazepam 0.5 MG TABLET PO SCH (21:03)
[2016-06-18] MEDS: ATORVASTATIN CA 10 MG TABLET (FP) PO SCH (21:04)
[2016-06-18] MEDS: TAMSULOSIN HCL 0.4 MG CAP.ER.24H (FP) PO SCH (21:04)
[2016-06-18] MEDS: traZODone HCL 50 MG TABLET (FP) PO SCH (21:04)
[2016-06-19] MEDS: AMPICILLIN - 1 GM in SODIUM CHLORIDE 100 ML IVPB SCH ×2 (01:37→09:14)
[2016-06-19] MEDS: D5-1/2NS+20 MEQ KCL - 1,000 ML IV SCH (03:18)
[2016-06-19] MEDS: HEPARIN NA (PORCINE) 5,000 UNITS/ML 1ML VIAL SQ SCH ×3 (06:09→21:42)
[2016-06-19] MEDS ORDERED: PT OWN MED DRAWER 7, Y5N ONE (09:09)
[2016-06-19] MEDS: LACTOBACILLUS ACIDOPHILUS 1 EACH TAB (FP) PO SCH (09:14)
[2016-06-19] MEDS: METOPROLOL SUCCINATE 25 MG TAB.SR.24H (FP) PO SCH (09:14)
[2016-06-19] MEDS: ASCORBIC ACID 500 MG TABLET (FP) PO SCH (09:14)
[2016-06-19] MEDS: PANTOPRAZOLE 40 MG TABLET (FP) PO SCH (09:14)
[2016-06-19] MEDS: MAGNESIUM OXIDE 400 MG TABLET (FP) PO SCH ×2 (09:16→21:43)
[2016-06-19] MEDS: FINASTERIDE 5 MG TABLET (FP) PO SCH (09:16)
--- NOTE | 2016-06-19 09:26 | PN ---
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, Physician History of Present Illness: patient stable remaining calm patient had a picc line which was pulled out by him patient stable after that - Current Medication List Current Medications: Active Medications Acetaminophen (Tylenol -) 650 mg PO Q4H PRN PRN Reason: FEVER OR PAIN Last Admin: 06/12/16 12:27 Dose: 650 mg Ascorbic Acid (Vitamin C -) 500 mg PO DAILY [facility] Last Admin: 06/19/16 09:14 Dose: 500 mg Atorvastatin Calcium (Lipitor -) 10 mg PO HS [facility] Last Admin: 06/18/16 21:04 Dose: 10 mg Collagenase (Santyl -) 1 applic TP DAILY [facility] Last Admin: 06/18/16 09:56 Dose: 1 applic Dronabinol (Marinol -) 2.5 mg PO BIDLS [facility] Last Admin: 06/18/16 17:57 Dose: 2.5 mg Finasteride (Proscar -) 5 mg PO DAILY [facility] Last Admin: 06/19/16 09:16 Dose: 5 mg Haloperidol (Haldol Injection (Fast Acting) -) 2 mg IM Q4H PRN PRN Reason: AGITATION Last Admin: 06/11/16 03:17 Dose: 2 mg Heparin Sodium (Porcine) (Heparin -) 5,000 unit SQ TID [facility] Last Admin: 06/19/16 06:09 Dose: 5,000 unit IV Flush (Picc Line Flush) 8 ml IVPUSH PRN PRN PRN Reason: Protocol Potassium Chloride/Dextrose/Sod Cl (D5-1/2ns+20 Meq Kcl -) 1,000 mls @ 75 mls/ hr IV ASDIR [facility] Last Admin: 06/19/16 03:18 Dose: 75 mls/hr Ampicillin Sodium 1 gm/ Sodium (Chloride) 100 mls @ 200 mls/hr IVPB Q8H-IV [facility] Last Admin: 06/19/16 09:14 Dose: 200 mls/hr Lactobacillus Acidophilus (Bacid -) 1 tab PO DAILY [facility] Last Admin: 06/19/16 09:14 Dose: 1 tab Lorazepam (Ativan -) 0.5 mg PO HS [facility] Last Admin: 06/18/16 21:03 Dose: 0.5 mg Magnesium Oxide (Mag-Ox -) 400 mg PO BID [facility] Last Admin: 06/19/16 09:16 Dose: 400 mg Metoprolol Succinate (Toprol Xl -) 25 mg PO DAILY [facility] Last Admin: 06/19/16 09:14 Dose: 25 mg Multi-Ingredient Ointment (Zinc Oxide) 1 applic TP TID PRN Last Admin: 06/18/16 09:57 Dose: 1 applic Pantoprazole Sodium (Protonix -) 40 mg PO DAILY [facility] Last Admin: 06/19/16 09:14 Dose: 40 mg Potassium Phos/Sodium Phos (Phos-Nak Packet -) 1 packet PO BID [facility] Last Admin: 06/18/16 21:08 Dose: 1 packet Tamsulosin HCl (Flomax -) 0.4 mg PO [facility] Last Admin: 06/18/16 21:04 Dose: 0.4 mg Trazodone HCl (Desyrel -) 37.5 mg PO [facility] Last Admin: 06/18/16 21:04 Dose: 37.5 mg - Objective Vital Signs: Vital Signs Temperature 97 F L 06/19/16 07:25 Pulse Rate 71 06/19/16 07:25 Respiratory Rate 20 06/19/16 07:25 Blood Pressure 133/79 06/19/16 07:25 O2 Sat by Pulse Oximetry (%) 96 06/18/16 21:00 Constitutional: Yes: No Distress, Calm Cardiovascular: Yes: S1, S2 Respiratory: Yes: Regular, CTA Bilaterally Gastrointestinal: Yes: Normal Bowel Sounds, Soft Genitourinary: Yes: [place] Present Musculoskeletal: Yes: WNL Extremities: Yes: WNL Neurological: Yes: Alert, Other Labs: CBC, BMP 06/17/16 06:15 06/17/16 06:15 INR, PTT INR 1.41 (0.82-1.09) H 06/10/16 10:13 Assessment/Plan Problem List - Problems (1) Sepsis Code(s): A41.9 - SEPSIS, UNSPECIFIED ORGANISM Qualifiers: Sepsis type: sepsis due to unspecified organism Qualified Code(s): A41.9 - Sepsis, unspecified organism (2) UTI (urinary tract infection) Code(s): N39.0 - URINARY TRACT INFECTION, SITE NOT SPECIFIED Qualifiers: Urinary tract infection type: acute cystitis Hematuria presence: with hematuria Qualified Code(s): N30.01 - Acute cystitis with hematuria (3) Lactic acid acidosis Code(s): E87.2 - ACIDOSIS (4) Metabolic encephalopathy Code(s): G93.41 - METABOLIC ENCEPHALOPATHY (5) HTN (hypertension) Code(s): I10 - ESSENTIAL (PRIMARY) HYPERTENSION (6) Dementia Code(s): F03.90 - UNSPECIFIED DEMENTIA WITHOUT BEHAVIORAL DISTURBANCE 7 gram positive bacteremia plan looks like patient is not going to keep the picc line in that view change to oral ampicillin 500mg every 8hrly for another 7 days
[2016-06-19] MEDS: NAPH,MB-DB/K PH,MBDB POWDER PACKET PO SCH ×2 (09:29→21:44)
--- NOTE | 2016-06-19 11:50 | DS ---
Physical Examination Vital Signs: Vital Signs Temperature 97.2 F L 06/19/16 10:19 Pulse Rate 76 06/19/16 10:19 Respiratory Rate 18 06/19/16 10:19 Blood Pressure 141/87 06/19/16 10:19 O2 Sat by Pulse Oximetry (%) 100 06/19/16 09:00 Constitutional: Yes: Well Nourished, No Distress, Calm Cardiovascular: Yes: Regular Rate and Rhythm. No: Gallop, Murmur, Rub Respiratory: Yes: Regular, CTA Bilaterally. No: Rales, Rhonchi, Wheezes Gastrointestinal: Yes: Normal Bowel Sounds, Soft. No: Distention, Tenderness Extremities: Yes: WNL Edema: No Labs: CBC, BMP 06/17/16 06:15 06/17/16 06:15 Discharge Summary Reason For Visit: UTI,SEPSIS Current Active Problems Dementia (Acute) HTN (hypertension) (Acute) Hypokalemia (Acute) Lactic acid acidosis (Acute) Metabolic encephalopathy (Acute) Sepsis (Acute) UTI (urinary tract infection) (Acute) Hospital Course: (1) Sepsis Code(s): A41.9 - SEPSIS, UNSPECIFIED ORGANISM Qualifiers: Sepsis type: sepsis due to unspecified organism Qualified Code(s): A41.9 - Sepsis, unspecified organism (2) UTI (urinary tract infection) Code(s): N39.0 - URINARY TRACT INFECTION, SITE NOT SPECIFIED Qualifiers: Urinary tract infection type: acute cystitis Hematuria presence: with hematuria Qualified Code(s): N30.01 - Acute cystitis with hematuria (3) Lactic acid acidosis Code(s): E87.2 - ACIDOSIS (4) Metabolic encephalopathy Code(s): G93.41 - METABOLIC ENCEPHALOPATHY (5) HTN (hypertension) Code(s): I10 - ESSENTIAL (PRIMARY) HYPERTENSION (6) Dementia Code(s): F03.90 - UNSPECIFIED DEMENTIA WITHOUT BEHAVIORAL DISTURBANCE (7) Hypernatremia (8) Hypomagnesemia (9) FTT Mr Mcdonald is a 80 year old male who came in with sepsis secondary to UTI. He was admitted to the hospital and seen by ID. He was placed on vancomycin and zosyn originally. Urine and blood cultures resulted, urine was growing enterococcus faecalis and the blood grew both enterococcus faecalis and staph epidermidis. He was transitioned to IV ampicillin and was planned for IV antibiotics as an outpatient, however he pulled out his PICC line so is unsafe for PICC line. He can be transitioned over to oral ampicillin per Dr Briceño. He is safe for discharge back to SNF. 38 minutes spent in preparation of this discharge Condition: Stable - Instructions Diet, Activity, Other Instructions: pureed diet. dietary supplementation with meals. up with assistance, further activity per SNF. Ampicillin for 7 more days, outpatient ECHO within 7 days. Referrals: Jessica Briceño MD [Staff Physician] - Bhavesh Escalante MD [Primary Care Provider] - Disposition: LONG TERM FACILITY - Home Medications Comprehensive Discharge Medication List: Ambulatory Orders Aa/Hydrolyzed Collagen, Whey [Lps Neutral Flavor Liquid] 30 ml PO TID 06/10/16 Acetaminophen 2 tab PO DAILY PRN 06/10/16 Ascorbic Acid [Vitamin C -] 1 tab PO DAILY 06/10/16 Collagenase Clostridium Hist. [Santyl] 1 applic TP DAILY 06/10/16 Dronabinol [Marinol] 1 tab PO BID 06/10/16 Finasteride 1 tab PO DAILY 06/10/16 Lorazepam [Ativan] 1 tab PO HS 06/10/16 Menthol/Zinc Oxide [Calmoseptine Ointment] 1 applic TP TID 06/10/16 Metoprolol Succinate [Toprol Xl] 1 tab PO DAILY 06/10/16 Multivitamin with Minerals [Icaps Plus] 1 tab PO DAILY 06/10/16 Omeprazole 2 tab PO DAILY 06/10/16 Tamsulosin HCl 1 tab PO HS 06/10/16 Tramadol HCl 1 tab PO Q4H PRN 06/10/16 Tramadol HCl [Tramadol HCl ER] 100 mg PO DAILY 06/10/16 Trazodone HCl 37.5 mg PO HS 06/10/16 Lactobacillus Acidophilus [Bacid -] 1 tab PO DAILY tab 06/18/16 Magnesium Oxide [Mag-Ox -] 400 mg PO BID tablet 06/18/16 Ampicillin Trihydrate [Ampicillin Trihydrate Capsule] 500 mg PO Q8H 7 Days 06/19
[2016-06-19] MEDS: DRONABINOL 2.5 MG CAPSULE PO SCH ×2 (12:17→17:23)
[2016-06-19] MEDS: COLLAGENASE CLOSTRIDIUM HIST. 30 GRAMS TUBE TP SCH (14:57)
--- NOTE | 2016-06-19 15:13 | PN ---
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, Physician Chief Complaint: Mr Mcdonald says he feels fine. - Current Medication List Current Medications: Active Medications Acetaminophen (Tylenol -) 650 mg PO Q4H PRN PRN Reason: FEVER OR PAIN Last Admin: 06/12/16 12:27 Dose: 650 mg Amoxicillin/Clavulanate Potassium (Augmentin - 500mg Tablet) 1 tab PO TIDCM [facility] Ascorbic Acid (Vitamin C -) 500 mg PO DAILY [facility] Last Admin: 06/19/16 09:14 Dose: 500 mg Atorvastatin Calcium (Lipitor -) 10 mg PO HS [facility] Last Admin: 06/18/16 21:04 Dose: 10 mg Collagenase (Santyl -) 1 applic TP DAILY [facility] Last Admin: 06/19/16 14:57 Dose: 1 applic Dronabinol (Marinol -) 2.5 mg PO BIDLS [facility] Last Admin: 06/19/16 12:17 Dose: 2.5 mg Finasteride (Proscar -) 5 mg PO DAILY [facility] Last Admin: 06/19/16 09:16 Dose: 5 mg Haloperidol (Haldol Injection (Fast Acting) -) 2 mg IM Q4H PRN PRN Reason: AGITATION Last Admin: 06/11/16 03:17 Dose: 2 mg Heparin Sodium (Porcine) (Heparin -) 5,000 unit SQ TID [facility] Last Admin: 06/19/16 13:56 Dose: 5,000 unit IV Flush (Picc Line Flush) 8 ml IVPUSH PRN PRN PRN Reason: Protocol Lactobacillus Acidophilus (Bacid -) 1 tab PO DAILY [facility] Last Admin: 06/19/16 09:14 Dose: 1 tab Lorazepam (Ativan -) 0.5 mg PO HS [facility] Last Admin: 06/18/16 21:03 Dose: 0.5 mg Magnesium Oxide (Mag-Ox -) 400 mg PO BID [facility] Last Admin: 06/19/16 09:16 Dose: 400 mg Metoprolol Succinate (Toprol Xl -) 25 mg PO DAILY [facility] Last Admin: 06/19/16 09:14 Dose: 25 mg Multi-Ingredient Ointment (Zinc Oxide) 1 applic TP TID [facility]N Last Admin: 06/18/16 09:57 Dose: 1 applic Nystatin/Triamcinolone Acetonide (Mycolog Ii Cream -) 1 applic TP BID [facility] Pantoprazole Sodium (Protonix -) 40 mg PO DAILY [facility] Last Admin: 06/19/16 09:14 Dose: 40 mg Potassium Phos/Sodium Phos (Phos-Nak Packet -) 1 packet PO BID [facility] Last Admin: 06/19/16 09:29 Dose: 1 packet Tamsulosin HCl (Flomax -) 0.4 mg PO [facility] Last Admin: 06/18/16 21:04 Dose: 0.4 mg Trazodone HCl (Desyrel -) 37.5 mg PO [facility] Last Admin: 06/18/16 21:04 Dose: 37.5 mg - Objective Vital Signs: Vital Signs Temperature 97.3 F L 06/19/16 15:04 Pulse Rate 70 06/19/16 15:04 Respiratory Rate 18 06/19/16 15:04 Blood Pressure 143/76 06/19/16 15:04 O2 Sat by Pulse Oximetry (%) 100 06/19/16 09:00 Constitutional: Yes: Well Nourished, No Distress, Calm Cardiovascular: Yes: Regular Rate and Rhythm. No: Gallop, Murmur, Rub Respiratory: Yes: Regular, CTA Bilaterally. No: Rales, Rhonchi, Wheezes Gastrointestinal: Yes: Normal Bowel Sounds, Soft. No: Distention, Tenderness Extremities: Yes: WNL Edema: No Labs: CBC, BMP 06/17/16 06:15 06/17/16 06:15 INR, PTT INR 1.41 (0.82-1.09) H 06/10/16 10:13 Problem List - Problems (1) Sepsis Code(s): A41.9 - SEPSIS, UNSPECIFIED ORGANISM Qualifiers: Sepsis type: sepsis due to unspecified organism Qualified Code(s): A41.9 - Sepsis, unspecified organism (2) UTI (urinary tract infection) Code(s): N39.0 - URINARY TRACT INFECTION, SITE NOT SPECIFIED Qualifiers: Urinary tract infection type: acute cystitis Hematuria presence: with hematuria Qualified Code(s): N30.01 - Acute cystitis with hematuria (3) Lactic acid acidosis Code(s): E87.2 - ACIDOSIS (4) Metabolic encephalopathy Code(s): G93.41 - METABOLIC ENCEPHALOPATHY (5) HTN (hypertension) Code(s): I10 - ESSENTIAL (PRIMARY) HYPERTENSION (6) Dementia Code(s): F03.90 - UNSPECIFIED DEMENTIA WITHOUT BEHAVIORAL DISTURBANCE Assessment/Plan (1) Sepsis Assessment/Plan: -urine growing enterococcus -original blood cultures positive for enterococcus, repeat blood cultures currently NGTD -ID following -can discharge on oral ampicillin -since no oral ampicillin on formulary, will place on augmentin while here Code(s): A41.9 - SEPSIS, UNSPECIFIED ORGANISM Qualifiers: Sepsis type: sepsis due to unspecified organism Qualified Code(s): A41.9 - Sepsis, unspecified organism (2) UTI (urinary tract infection) Assessment/Plan: -with hematuria but now resolved -appreciate urology assistance -source of sepsis -on antibiotics Code(s): N39.0 - URINARY TRACT INFECTION, SITE NOT SPECIFIED Qualifiers: Urinary tract infection type: acute cystitis Hematuria presence: with hematuria Qualified Code(s): N30.01 - Acute cystitis with hematuria (3) Lactic acid acidosis Assessment/Plan: -resolved Code(s): E87.2 - ACIDOSIS (4) Metabolic encephalopathy Assessment/Plan: -at baseline Code(s): G93.41 - METABOLIC ENCEPHALOPATHY (5) HTN (hypertension) Assessment/Plan: -continue toprol and amlodipine with hold parameters Code(s): I10 - ESSENTIAL (PRIMARY) HYPERTENSION (6) Dementia Assessment/Plan: -at baseline Code(s): F03.90 - UNSPECIFIED DEMENTIA WITHOUT BEHAVIORAL DISTURBANCE (7) Hypernatremia -resolved (8) Hypomagnesemia -replaced (9) FTT -continue ensure Dispo -discharged, however awaiting insurance approval -continue current management, await transfer to SNF -discharge medications reconciled
[2016-06-19] MEDS: AMOX TR/POT CLAV 500MG/125MG TABLETS (FP) PO SCH (17:23)
[2016-06-19] MEDS: LORazepam 0.5 MG TABLET PO SCH (21:42)
[2016-06-19] MEDS: traZODone HCL 50 MG TABLET (FP) PO SCH (21:42)
[2016-06-19] MEDS: TAMSULOSIN HCL 0.4 MG CAP.ER.24H (FP) PO SCH (21:42)
[2016-06-19] MEDS: NYSTATIN/TRIAMCINOLONE TOPICAL CREAM 15 GM TUBE TP SCH (21:43)
[2016-06-19] MEDS: ATORVASTATIN CA 10 MG TABLET (FP) PO SCH (21:43)
[2016-06-20] MEDS: HEPARIN NA (PORCINE) 5,000 UNITS/ML 1ML VIAL SQ SCH ×3 (05:55→21:12)
--- NOTE | 2016-06-20 07:50 | PN ---
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 (short form) - Note 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: PATIENT AWAITING SNF TRANSFER . ON ORAL AB PER ID. DEMENTED <> UNABLE TO OBTAIN HY . IN NO DISTRESS. Laboratory Tests 06/20/16 06:54 Temperature 98.1 F Pulse Rate 76 Respiratory 20 Rate Blood Pressure 136/68 Laboratory Tests 06/17/16 06/17/16 06:15 06:15 WBC 6.9 RBC 3.54 L Hgb 9.7 L Hct 29.3 L RDW 16.7 H Plt Count 208 Sodium 139 Potassium 3.7 Chloride 107 Carbon Dioxide 23 Anion Gap 9 BUN 5 L Creatinine 0.5 L D Calcium 7.1 L Phosphorus 2.4 L Magnesium 1.5 L P/E <> AWAKE / COMFORTABLE HEENT <> NECK SUPPLE / CAROTIDS 2 + COR <> S 1 S 2 CHEST m<> FEW SCATTERED RHONCHI ABD <> SOFT / NONTENEDER IMP: UTI / ENTEROCOCCUS SEPSIS HEMATURIA DEMENTIA METABOLIC ENCEPHALOPATHY. NSTEMI PLAN : LOW DOSE LIPITOR AFTER STEMI ORAL AMOXACILLIN ATIVAN FOR AGITATION. SNF TRANSFER.
[2016-06-20] MEDS ORDERED: PT OWN MED DRAWER 7, Y5N ONE ×2 (08:26→09:13)
[2016-06-20] MEDS: AMOX TR/POT CLAV 500MG/125MG TABLETS (FP) PO SCH ×3 (08:29→17:25)
[2016-06-20] MEDS: LACTOBACILLUS ACIDOPHILUS 1 EACH TAB (FP) PO SCH (09:16)
[2016-06-20] MEDS: MAGNESIUM OXIDE 400 MG TABLET (FP) PO SCH ×2 (09:16→21:12)
[2016-06-20] MEDS: NAPH,MB-DB/K PH,MBDB POWDER PACKET PO SCH ×2 (09:17→21:13)
[2016-06-20] MEDS: FINASTERIDE 5 MG TABLET (FP) PO SCH (09:17)
[2016-06-20] MEDS: PANTOPRAZOLE 40 MG TABLET (FP) PO SCH (09:17)
[2016-06-20] MEDS: ASCORBIC ACID 500 MG TABLET (FP) PO SCH (09:18)
[2016-06-20] MEDS: NYSTATIN/TRIAMCINOLONE TOPICAL CREAM 15 GM TUBE TP SCH ×2 (09:21→21:13)
[2016-06-20] MEDS: METOPROLOL SUCCINATE 25 MG TAB.SR.24H (FP) PO SCH (09:21)
[2016-06-20] MEDS: COLLAGENASE CLOSTRIDIUM HIST. 30 GRAMS TUBE TP SCH (10:44)
--- NOTE | 2016-06-20 11:47 | PN ---
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 (short form) - Note 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: s: awake, no meaningful communication, no overnight events, appears comfortable o: Vital Signs Period Temp Pulse Resp BP Sys/Kerr Pulse Ox Last 24 Hr 97.3 F-98.5 F 69-76 18-20 136-146/9-79 100 awake, nad, cachectic jvd flat, neck supple ctab anteriorly, poor effort rrr, nl s1, s2 no mrg + bs soft nt nd ext without e/c/c alert but not non-verbal no jaundice, diaphoresis Current Medications Generic Name Dose Route Start Last Admin Trade Name Freq PRN Reason Stop Dose Admin Acetaminophen 650 mg 06/12/16 10:27 06/12/16 12:27 Tylenol - PO 650 mg Q4H PRN Administration FEVER OR PAIN Amoxicillin/Clavulanate Potassium 1 tab 06/19/16 17:30 06/20/16 08:29 Augmentin - 500mg Tablet PO 1 tab TIDCM CORNELIO Administration Ascorbic Acid 500 mg 06/11/16 10:00 06/20/16 09:18 Vitamin C - PO 500 mg DAILY CORNELIO Administration Atorvastatin Calcium 10 mg 06/10/16 22:00 06/19/16 21:43 Lipitor - PO 10 mg HS CORNELIO Administration Collagenase 1 applic 06/11/16 10:00 06/20/16 10:44 Santyl - TP 1 applic DAILY CORNELIO Administration Dronabinol 2.5 mg 06/10/16 17:30 06/19/16 17:23 Marinol - PO 2.5 mg BIDLS CORNELIO Administration Finasteride 5 mg 06/11/16 10:00 06/20/16 09:17 Proscar - PO 5 mg DAILY CORNELIO Administration Haloperidol 2 mg 06/10/16 12:29 06/11/16 03:17 Haldol Injection (Fast Acting) - IM 2 mg Q4H PRN Administration AGITATION Heparin Sodium (Porcine) 5,000 unit 06/10/16 14:00 06/20/16 05:55 Heparin - SQ 5,000 unit TID CORNELIO Administration Lactobacillus Acidophilus 1 tab 06/11/16 10:00 06/20/16 09:16 Bacid - PO 1 tab DAILY CORNELIO Administration Lorazepam 0.5 mg 06/10/16 22:00 06/19/16 21:42 Ativan - PO 0.5 mg HS CORNELIO Administration Magnesium Oxide 400 mg 06/16/16 12:30 06/20/16 09:16 Mag-Ox - PO 400 mg BID CORNELIO Administration Metoprolol Succinate 25 mg 06/10/16 19:12 06/20/16 09:21 Toprol Xl - PO 25 mg DAILY CORNELIO Administration Nystatin/Triamcinolone Acetonide 1 applic 06/19/16 22:00 06/20/16 09:21 Mycolog Ii Cream - TP 1 applic BID CORNELIO Administration Pantoprazole Sodium 40 mg 06/11/16 10:00 06/20/16 09:17 Protonix - PO 40 mg DAILY CORNELIO Administration Potassium Phos/Sodium Phos 1 packet 06/16/16 12:30 06/20/16 09:17 Phos-Nak Packet - PO 1 packet BID CORNELIO Administration Tamsulosin HCl 0.4 mg 06/10/16 22:00 06/19/16 21:42 Flomax - PO 0.4 mg HS CORNELIO Administration Trazodone HCl 37.5 mg 06/10/16 22:00 06/19/16 21:42 Desyrel - PO 37.5 mg HS CORNELIO Administration CBC, BMP 06/17/16 06:15 06/17/16 06:15 EKG 06/10 12:21: uninterpretable due to baseline artifact EKG 06/10 14:46 Poor quality/baseline. Sinus tach with diffuse ST abnormalities. anterior ST sagging. possible inferior q waves. low limb voltages. tele: extensive motion artifact, appears to be SR/sinus tach abd CT: fecal retention, sacral decub with surrounding subcut air/abscess a/p: 80 yo with h/o htn, bph, advanced dementia who sent to ER for hematuria and noted to have UTI with sepsis complicated by elevated cardiac enzymes. positive trops: - borderline trop elevation with flat trend and low ck index, not consistent with acs, likely related to likely demand in setting of infection and tachycardia. - started low dose atorvastatin. can consider asa if urology amenable. - cont metoprolol - echo done here this admit was non-diagnostic due to pt agitation/lack of cooperation htn - stable on bb sepsis/uti/hematuria - mgm't per pmd/urology/ID
--- NOTE | 2016-06-20 12:22 | RAPID ---
Physical Examination Vital Signs: Vital Signs Temperature 98.4 F 06/20/16 08:50 Pulse Rate 76 06/20/16 08:50 Respiratory Rate 18 06/20/16 08:50 Blood Pressure 146/9 06/20/16 08:50 O2 Sat by Pulse Oximetry (%) 100 06/19/16 21:00 Constitutional: Yes: Anxious, Cachectic Eyes: Yes: Conjunctiva Clear HENT: Yes: Normocephalic. No: Epistaxis Cardiovascular: Yes: Regular Rate and Rhythm Respiratory: Yes: WNL, Regular, CTA Bilaterally. No: Accessory Muscle Use, Bradypnea, Cough, On Nasal O2, Orthopnea Gastrointestinal: Yes: WNL, Soft. No: Distention, Tenderness, Tenderness, Epigastrium Extremities: No: Calf Tenderness Edema: No Integumentary: Yes: Bruising (old and chronic. No new ecchymosis or brusing). No: Laceration, Petechiae Neurological: Yes: Confusion. No: Oriented, Facial Droop Psychiatric: Yes: Alert. No: Oriented Labs: CBC, BMP 06/17/16 06:15 06/17/16 06:15 Rapid Response - Rapid Response Assessment: Rapid Response called for s/p fall. RN stated that she walked in the room and found patient on the floor laying on his left side. When I arrived patient was still on the floor laying on his left side with his hand over his head. Patient was admitted for Sepsis secondary to UTI with hematuria and dementia. Patient was ready for discharge but pending SNF STAT CT ordered REPEAT Vitals and glucose levels Vitals: BP: 76/42 Heart Rate: 73 02: 98% RA Glucose: 77 CT negative for acute pathology such as infarct or hemorrhage. Will reconcile medications Spoke to Dr. Escalante, covering for Dr. Andino and is currently in house and will examine the patient.
[2016-06-20] MEDS: DRONABINOL 2.5 MG CAPSULE PO SCH ×2 (13:44→17:25)
[2016-06-20 15:48] LABS: INR 1.18 (0.82-1.09)
[2016-06-20 15:50] LABS: ACTIVATED PTT 32.1 SECONDS (26.9-34.4)
--- NOTE | 2016-06-20 17:25 | PN ---
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, Physician History of Present Illness: events noted patient stable now - Current Medication List Current Medications: Active Medications Acetaminophen (Tylenol -) 650 mg PO Q4H PRN PRN Reason: FEVER OR PAIN Last Admin: 06/12/16 12:27 Dose: 650 mg Amoxicillin/Clavulanate Potassium (Augmentin - 500mg Tablet) 1 tab PO TIDCM [facility] Last Admin: 06/20/16 13:44 Dose: 1 tab Ascorbic Acid (Vitamin C -) 500 mg PO DAILY [facility] Last Admin: 06/20/16 09:18 Dose: 500 mg Atorvastatin Calcium (Lipitor -) 10 mg PO HS [facility] Last Admin: 06/19/16 21:43 Dose: 10 mg Collagenase (Santyl -) 1 applic TP DAILY [facility] Last Admin: 06/20/16 10:44 Dose: 1 applic Dronabinol (Marinol -) 2.5 mg PO BIDLS [facility] Last Admin: 06/20/16 13:44 Dose: 2.5 mg Finasteride (Proscar -) 5 mg PO DAILY [facility] Last Admin: 06/20/16 09:17 Dose: 5 mg Haloperidol (Haldol Injection (Fast Acting) -) 2 mg IM Q4H PRN PRN Reason: AGITATION Last Admin: 06/11/16 03:17 Dose: 2 mg Heparin Sodium (Porcine) (Heparin -) 5,000 unit SQ TID [facility] Last Admin: 06/20/16 13:44 Dose: 5,000 unit Lactobacillus Acidophilus (Bacid -) 1 tab PO DAILY [facility] Last Admin: 06/20/16 09:16 Dose: 1 tab Lorazepam (Ativan -) 0.5 mg PO HS [facility] Last Admin: 06/19/16 21:42 Dose: 0.5 mg Magnesium Oxide (Mag-Ox -) 400 mg PO BID [facility] Last Admin: 06/20/16 09:16 Dose: 400 mg Metoprolol Succinate (Toprol Xl -) 25 mg PO DAILY [facility] Last Admin: 06/20/16 09:21 Dose: 25 mg Nystatin/Triamcinolone Acetonide (Mycolog Ii Cream -) 1 applic TP BID [facility] Last Admin: 06/20/16 09:21 Dose: 1 applic Pantoprazole Sodium (Protonix -) 40 mg PO DAILY [facility] Last Admin: 06/20/16 09:17 Dose: 40 mg Potassium Phos/Sodium Phos (Phos-Nak Packet -) 1 packet PO BID [facility] Last Admin: 06/20/16 09:17 Dose: 1 packet Tamsulosin HCl (Flomax -) 0.4 mg PO [facility] Last Admin: 06/19/16 21:42 Dose: 0.4 mg Trazodone HCl (Desyrel -) 37.5 mg PO [facility] Last Admin: 06/19/16 21:42 Dose: 37.5 mg - Objective Vital Signs: Vital Signs Temperature 98.0 F 06/20/16 15:26 Pulse Rate 65 06/20/16 15:26 Respiratory Rate 16 06/20/16 15:26 Blood Pressure 139/76 06/20/16 15:26 O2 Sat by Pulse Oximetry (%) 100 06/19/16 21:00 Constitutional: Yes: No Distress, Calm Cardiovascular: Yes: S1, S2 Respiratory: Yes: Regular, CTA Bilaterally Gastrointestinal: Yes: Normal Bowel Sounds, Soft Genitourinary: Yes: [place] Present Musculoskeletal: Yes: WNL Extremities: Yes: WNL Neurological: Yes: Alert Psychiatric: Yes: Alert Labs: CBC, BMP 06/17/16 06:15 06/17/16 06:15 INR, PTT INR 1.18 (0.82-1.09) H 06/20/16 15:00 Assessment/Plan Problem List - Problems (1) Sepsis Code(s): A41.9 - SEPSIS, UNSPECIFIED ORGANISM Qualifiers: Sepsis type: sepsis due to unspecified organism Qualified Code(s): A41.9 - Sepsis, unspecified organism (2) UTI (urinary tract infection) Code(s): N39.0 - URINARY TRACT INFECTION, SITE NOT SPECIFIED Qualifiers: Urinary tract infection type: acute cystitis Hematuria presence: with hematuria Qualified Code(s): N30.01 - Acute cystitis with hematuria (3) Lactic acid acidosis Code(s): E87.2 - ACIDOSIS (4) Metabolic encephalopathy Code(s): G93.41 - METABOLIC ENCEPHALOPATHY (5) HTN (hypertension) Code(s): I10 - ESSENTIAL (PRIMARY) HYPERTENSION (6) Dementia Code(s): F03.90 - UNSPECIFIED DEMENTIA WITHOUT BEHAVIORAL DISTURBANCE 7 gram positive bacteremia plan continue current mgmt rest as per primary team
[2016-06-20] MEDS: ATORVASTATIN CA 10 MG TABLET (FP) PO SCH (21:12)
[2016-06-20] MEDS: LORazepam 0.5 MG TABLET PO SCH (21:12)
[2016-06-20] MEDS: TAMSULOSIN HCL 0.4 MG CAP.ER.24H (FP) PO SCH (21:12)
[2016-06-20] MEDS: traZODone HCL 50 MG TABLET (FP) PO SCH (21:16)
[2016-06-21] MEDS: HEPARIN NA (PORCINE) 5,000 UNITS/ML 1ML VIAL SQ SCH ×3 (06:24→21:22)
--- NOTE | 2016-06-21 07:36 | PN ---
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 (short form) - Note 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: PATIENT REMAINS IN DEMENTED STATE . NO OBVIOUS RESP / CARDIAC DISTRESS. Selected Entries 06/21/16 06:53 Temperature 98.6 F Pulse Rate 72 Respiratory 20 Rate Blood Pressure 139/70 Laboratory Tests P/E <>AWAKE / RSISTANT TO FULL EXAM. HEENT <> NECK SUPPLE / CAROTIDS 2 + COR <> S 1 S 2 CHEST <>SCATTERED RHONCHI AT BASES. ABD <> SOFT / NONTENEDER IMP: UTI / ENTEROCOCCUS ENTEROCOCCUS SEPSIS DEMENTIA NSTEMI PLAN : AWAIT SNF TRANSFER CONTINUE LIPITOR WITH STEMI ORAL AUGMENTIN PER I.D. ATIVAN FOR AGITATION.
[2016-06-21] MEDS: AMOX TR/POT CLAV 500MG/125MG TABLETS (FP) PO SCH ×3 (09:05→17:41)
[2016-06-21] MEDS ORDERED: PT OWN MED DRAWER 7, Y5N ONE (09:25)
[2016-06-21] MEDS: LACTOBACILLUS ACIDOPHILUS 1 EACH TAB (FP) PO SCH (09:27)
[2016-06-21] MEDS: MAGNESIUM OXIDE 400 MG TABLET (FP) PO SCH ×2 (09:27→21:22)
[2016-06-21] MEDS: ACETAMINOPHEN 325 MG TABLET (FP) PO PRN (09:28)
[2016-06-21] MEDS: NAPH,MB-DB/K PH,MBDB POWDER PACKET PO SCH ×2 (09:28→21:25)
[2016-06-21] MEDS: ASCORBIC ACID 500 MG TABLET (FP) PO SCH (09:28)
[2016-06-21] MEDS: PANTOPRAZOLE 40 MG TABLET (FP) PO SCH (09:28)
[2016-06-21] MEDS: METOPROLOL SUCCINATE 25 MG TAB.SR.24H (FP) PO SCH (09:28)
[2016-06-21] MEDS: FINASTERIDE 5 MG TABLET (FP) PO SCH (09:28)
[2016-06-21] MEDS: NYSTATIN/TRIAMCINOLONE TOPICAL CREAM 15 GM TUBE TP SCH ×2 (09:29→21:34)
--- NOTE | 2016-06-21 11:18 | PN ---
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, Physician History of Present Illness: stable no new issues - Current Medication List Current Medications: Active Medications Acetaminophen (Tylenol -) 650 mg PO Q4H PRN PRN Reason: FEVER OR PAIN Last Admin: 06/21/16 09:28 Dose: 650 mg Amoxicillin/Clavulanate Potassium (Augmentin - 500mg Tablet) 1 tab PO TIDCM [facility] Last Admin: 06/21/16 09:05 Dose: 1 tab Ascorbic Acid (Vitamin C -) 500 mg PO DAILY [facility] Last Admin: 06/21/16 09:28 Dose: 500 mg Atorvastatin Calcium (Lipitor -) 10 mg PO HS [facility] Last Admin: 06/20/16 21:12 Dose: 10 mg Collagenase (Santyl -) 1 applic TP DAILY [facility] Last Admin: 06/20/16 10:44 Dose: 1 applic Dronabinol (Marinol -) 2.5 mg PO BIDLS [facility] Last Admin: 06/20/16 17:25 Dose: 2.5 mg Finasteride (Proscar -) 5 mg PO DAILY [facility] Last Admin: 06/21/16 09:28 Dose: 5 mg Haloperidol (Haldol Injection (Fast Acting) -) 2 mg IM Q4H PRN PRN Reason: AGITATION Last Admin: 06/11/16 03:17 Dose: 2 mg Heparin Sodium (Porcine) (Heparin -) 5,000 unit SQ TID [facility] Last Admin: 06/21/16 06:24 Dose: 5,000 unit Lactobacillus Acidophilus (Bacid -) 1 tab PO DAILY [facility] Last Admin: 06/21/16 09:27 Dose: 1 tab Lorazepam (Ativan -) 0.5 mg PO HS [facility] Last Admin: 06/20/16 21:12 Dose: 0.5 mg Magnesium Oxide (Mag-Ox -) 400 mg PO BID [facility] Last Admin: 06/21/16 09:27 Dose: 400 mg Metoprolol Succinate (Toprol Xl -) 25 mg PO DAILY [facility] Last Admin: 06/21/16 09:28 Dose: 25 mg Nystatin/Triamcinolone Acetonide (Mycolog Ii Cream -) 1 applic TP BID [facility] Last Admin: 06/21/16 09:29 Dose: 1 applic Pantoprazole Sodium (Protonix -) 40 mg PO DAILY [facility] Last Admin: 06/21/16 09:28 Dose: 40 mg Potassium Phos/Sodium Phos (Phos-Nak Packet -) 1 packet PO BID [facility] Last Admin: 06/21/16 09:28 Dose: 1 packet Tamsulosin HCl (Flomax -) 0.4 mg PO [facility] Last Admin: 06/20/16 21:12 Dose: 0.4 mg Trazodone HCl (Desyrel -) 37.5 mg PO [facility] Last Admin: 06/20/16 21:16 Dose: 37.5 mg - Objective Vital Signs: Vital Signs Temperature 97.8 F 06/21/16 08:50 Pulse Rate 81 06/21/16 08:50 Respiratory Rate 15 06/21/16 08:50 Blood Pressure 129/81 06/21/16 08:50 O2 Sat by Pulse Oximetry (%) 100 06/20/16 21:00 Constitutional: Yes: No Distress, Calm Cardiovascular: Yes: Regular Rate and Rhythm Respiratory: Yes: Regular, CTA Bilaterally Gastrointestinal: Yes: Normal Bowel Sounds, Soft Musculoskeletal: Yes: WNL Extremities: Yes: WNL Neurological: Yes: Alert, Confusion Psychiatric: Yes: Alert Labs: CBC, BMP 06/17/16 06:15 06/17/16 06:15 INR, PTT INR 1.18 (0.82-1.09) H 06/20/16 15:00 Assessment/Plan Problem List - Problems (1) Sepsis Code(s): A41.9 - SEPSIS, UNSPECIFIED ORGANISM Qualifiers: Sepsis type: sepsis due to unspecified organism Qualified Code(s): A41.9 - Sepsis, unspecified organism (2) UTI (urinary tract infection) Code(s): N39.0 - URINARY TRACT INFECTION, SITE NOT SPECIFIED Qualifiers: Urinary tract infection type: acute cystitis Hematuria presence: with hematuria Qualified Code(s): N30.01 - Acute cystitis with hematuria (3) Lactic acid acidosis Code(s): E87.2 - ACIDOSIS (4) Metabolic encephalopathy Code(s): G93.41 - METABOLIC ENCEPHALOPATHY (5) HTN (hypertension) Code(s): I10 - ESSENTIAL (PRIMARY) HYPERTENSION (6) Dementia Code(s): F03.90 - UNSPECIFIED DEMENTIA WITHOUT BEHAVIORAL DISTURBANCE 7 gram positive bacteremia plan continue current mgmt rest as per primary team awaiting for placement
[2016-06-21] MEDS: DRONABINOL 2.5 MG CAPSULE PO SCH ×2 (11:40→17:42)
--- NOTE | 2016-06-21 12:09 | PN ---
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 (short form) - Note 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: s: awake, no meaningful communication, appears comfortable; fell overnight o: Vital Signs Period Temp Pulse Resp BP Sys/Kerr Pulse Ox Last 24 Hr 96.1 F-98.6 F 61-81 15-20 125-151/70-97 100 awake, nad, cachectic jvd flat, neck supple ctabl, poor effort rrr, nl s1, s2 no mrg + bs soft nt nd ext without e/c/c alert but not non-verbal no jaundice, diaphoresis Current Medications Generic Name Dose Route Start Last Admin Trade Name Freq PRN Reason Stop Dose Admin Acetaminophen 650 mg 06/12/16 10:27 06/21/16 09:28 Tylenol - PO 650 mg Q4H PRN Administration FEVER OR PAIN Amoxicillin/Clavulanate Potassium 1 tab 06/19/16 17:30 06/21/16 11:40 Augmentin - 500mg Tablet PO 1 tab TIDCM CORNELIO Administration Ascorbic Acid 500 mg 06/11/16 10:00 06/21/16 09:28 Vitamin C - PO 500 mg DAILY CORNELIO Administration Atorvastatin Calcium 10 mg 06/10/16 22:00 06/20/16 21:12 Lipitor - PO 10 mg HS CORNELIO Administration Collagenase 1 applic 06/11/16 10:00 06/20/16 10:44 Santyl - TP 1 applic DAILY CORNELIO Administration Dronabinol 2.5 mg 06/10/16 17:30 06/21/16 11:40 Marinol - PO 2.5 mg BIDLS CORNELIO Administration Finasteride 5 mg 06/11/16 10:00 06/21/16 09:28 Proscar - PO 5 mg DAILY CORNELIO Administration Haloperidol 2 mg 06/10/16 12:29 06/11/16 03:17 Haldol Injection (Fast Acting) - IM 2 mg Q4H PRN Administration AGITATION Heparin Sodium (Porcine) 5,000 unit 06/10/16 14:00 06/21/16 06:24 Heparin - SQ 5,000 unit TID CORNELIO Administration Lactobacillus Acidophilus 1 tab 06/11/16 10:00 06/21/16 09:27 Bacid - PO 1 tab DAILY CORNELIO Administration Lorazepam 0.5 mg 06/10/16 22:00 06/20/16 21:12 Ativan - PO 0.5 mg HS CORNELIO Administration Magnesium Oxide 400 mg 06/16/16 12:30 06/21/16 09:27 Mag-Ox - PO 400 mg BID CORNELIO Administration Metoprolol Succinate 25 mg 06/10/16 19:12 06/21/16 09:28 Toprol Xl - PO 25 mg DAILY CORNELIO Administration Nystatin/Triamcinolone Acetonide 1 applic 06/19/16 22:00 06/21/16 09:29 Mycolog Ii Cream - TP 1 applic BID CORNELIO Administration Pantoprazole Sodium 40 mg 06/11/16 10:00 06/21/16 09:28 Protonix - PO 40 mg DAILY CORNELIO Administration Potassium Phos/Sodium Phos 1 packet 06/16/16 12:30 06/21/16 09:28 Phos-Nak Packet - PO 1 packet BID CORNELIO Administration Tamsulosin HCl 0.4 mg 06/10/16 22:00 06/20/16 21:12 Flomax - PO 0.4 mg HS CORNELIO Administration Trazodone HCl 37.5 mg 06/10/16 22:00 06/20/16 21:16 Desyrel - PO 37.5 mg HS CORNELIO Administration CBC, BMP 06/17/16 06:15 06/17/16 06:15 EKG 06/10 12:21: uninterpretable due to baseline artifact EKG 06/10 14:46 Poor quality/baseline. Sinus tach with diffuse ST abnormalities. anterior ST sagging. possible inferior q waves. low limb voltages. abd CT: fecal retention, sacral decub with surrounding subcut air/abscess a/p: 80 yo with h/o htn, bph, advanced dementia who sent to ER for hematuria and noted to have UTI with sepsis complicated by elevated cardiac enzymes. positive trops: - borderline trop elevation with flat trend and low ck index, not consistent with acs, likely related to likely demand in setting of infection and tachycardia. - started low dose atorvastatin. can consider asa if urology amenable. - cont metoprolol - echo done here this admit was non-diagnostic due to pt agitation/lack of cooperation htn - remains stable/controlled on bb sepsis/uti/hematuria - mgm't per pmd/urology/ID
[2016-06-21] MEDS: COLLAGENASE CLOSTRIDIUM HIST. 30 GRAMS TUBE TP SCH (12:20)
[2016-06-21] MEDS: HALOPERIDOL LACTATE 5 MG/ML IM PRN ×2 (14:25→19:36)
[2016-06-21] MEDS: TAMSULOSIN HCL 0.4 MG CAP.ER.24H (FP) PO SCH (21:21)
[2016-06-21] MEDS: ATORVASTATIN CA 10 MG TABLET (FP) PO SCH (21:22)
[2016-06-21] MEDS: LORazepam 0.5 MG TABLET PO SCH (21:22)
[2016-06-21] MEDS: traZODone HCL 50 MG TABLET (FP) PO SCH (21:25)
[2016-06-22] MEDS: HALOPERIDOL LACTATE 5 MG/ML IM PRN (02:19)
[2016-06-22] MEDS: HEPARIN NA (PORCINE) 5,000 UNITS/ML 1ML VIAL SQ SCH ×3 (06:08→22:40)
[2016-06-22] MEDS: AMOX TR/POT CLAV 500MG/125MG TABLETS (FP) PO SCH ×3 (08:15→17:35)
[2016-06-22] MEDS: MAGNESIUM OXIDE 400 MG TABLET (FP) PO SCH ×2 (10:13→22:40)
[2016-06-22] MEDS: PANTOPRAZOLE 40 MG TABLET (FP) PO SCH (10:14)
[2016-06-22] MEDS: ASCORBIC ACID 500 MG TABLET (FP) PO SCH (10:14)
[2016-06-22] MEDS: LACTOBACILLUS ACIDOPHILUS 1 EACH TAB (FP) PO SCH (10:14)
[2016-06-22] MEDS: FINASTERIDE 5 MG TABLET (FP) PO SCH (10:14)
[2016-06-22] MEDS: METOPROLOL SUCCINATE 25 MG TAB.SR.24H (FP) PO SCH (10:15)
[2016-06-22] MEDS: NAPH,MB-DB/K PH,MBDB POWDER PACKET PO SCH ×2 (10:16→22:41)
--- NOTE | 2016-06-22 12:07 | PN ---
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, Physician Chief Complaint: Mr Mcdonald says he is fine. Unable to obtain further subjective. - Current Medication List Current Medications: Active Medications Acetaminophen (Tylenol -) 650 mg PO Q4H PRN PRN Reason: FEVER OR PAIN Last Admin: 06/21/16 09:28 Dose: 650 mg Amoxicillin/Clavulanate Potassium (Augmentin - 500mg Tablet) 1 tab PO TIDCM [facility] Last Admin: 06/21/16 17:41 Dose: 1 tab Ascorbic Acid (Vitamin C -) 500 mg PO DAILY [facility] Last Admin: 06/21/16 09:28 Dose: 500 mg Atorvastatin Calcium (Lipitor -) 10 mg PO HS [facility] Last Admin: 06/21/16 21:22 Dose: 10 mg Collagenase (Santyl -) 1 applic TP DAILY [facility] Last Admin: 06/21/16 12:20 Dose: 1 applic Dronabinol (Marinol -) 2.5 mg PO BIDLS [facility] Last Admin: 06/21/16 17:42 Dose: 2.5 mg Finasteride (Proscar -) 5 mg PO DAILY [facility] Last Admin: 06/21/16 09:28 Dose: 5 mg Haloperidol (Haldol Injection (Fast Acting) -) 2 mg IM Q4H PRN PRN Reason: AGITATION Last Admin: 06/22/16 02:19 Dose: 2 mg Heparin Sodium (Porcine) (Heparin -) 5,000 unit SQ TID [facility] Last Admin: 06/22/16 06:08 Dose: 5,000 unit Lactobacillus Acidophilus (Bacid -) 1 tab PO DAILY [facility] Last Admin: 06/21/16 09:27 Dose: 1 tab Lorazepam (Ativan -) 0.5 mg PO HS [facility] Last Admin: 06/21/16 21:22 Dose: 0.5 mg Magnesium Oxide (Mag-Ox -) 400 mg PO BID [facility] Last Admin: 06/21/16 21:22 Dose: 400 mg Metoprolol Succinate (Toprol Xl -) 25 mg PO DAILY [facility] Last Admin: 06/21/16 09:28 Dose: 25 mg Nystatin/Triamcinolone Acetonide (Mycolog Ii Cream -) 1 applic TP BID [facility] Last Admin: 06/21/16 21:34 Dose: 1 applic Pantoprazole Sodium (Protonix -) 40 mg PO DAILY [facility] Last Admin: 06/21/16 09:28 Dose: 40 mg Potassium Phos/Sodium Phos (Phos-Nak Packet -) 1 packet PO BID [facility] Last Admin: 06/21/16 21:25 Dose: 1 packet Tamsulosin HCl (Flomax -) 0.4 mg PO [facility] Last Admin: 06/21/16 21:21 Dose: 0.4 mg Trazodone HCl (Desyrel -) 37.5 mg PO [facility] Last Admin: 06/21/16 21:25 Dose: 37.5 mg - Objective Vital Signs: Vital Signs Temperature 97.3 F L 06/22/16 07:44 Pulse Rate 93 H 06/22/16 07:44 Respiratory Rate 20 06/22/16 07:44 Blood Pressure 139/71 06/22/16 07:44 O2 Sat by Pulse Oximetry (%) 100 06/20/16 21:00 Constitutional: Yes: Well Nourished, No Distress, Calm Cardiovascular: Yes: Regular Rate and Rhythm. No: Gallop, Murmur, Rub Respiratory: Yes: Regular, CTA Bilaterally. No: Rales, Rhonchi, Wheezes Gastrointestinal: Yes: Normal Bowel Sounds, Soft. No: Distention, Tenderness Extremities: Yes: WNL Edema: No Labs: CBC, BMP 06/17/16 06:15 06/17/16 06:15 INR, PTT INR 1.18 (0.82-1.09) H 06/20/16 15:00 Problem List - Problems (1) Sepsis Code(s): A41.9 - SEPSIS, UNSPECIFIED ORGANISM Qualifiers: Sepsis type: sepsis due to unspecified organism Qualified Code(s): A41.9 - Sepsis, unspecified organism (2) UTI (urinary tract infection) Code(s): N39.0 - URINARY TRACT INFECTION, SITE NOT SPECIFIED Qualifiers: Urinary tract infection type: acute cystitis Hematuria presence: with hematuria Qualified Code(s): N30.01 - Acute cystitis with hematuria (3) Lactic acid acidosis Code(s): E87.2 - ACIDOSIS (4) Metabolic encephalopathy Code(s): G93.41 - METABOLIC ENCEPHALOPATHY (5) HTN (hypertension) Code(s): I10 - ESSENTIAL (PRIMARY) HYPERTENSION (6) Dementia Code(s): F03.90 - UNSPECIFIED DEMENTIA WITHOUT BEHAVIORAL DISTURBANCE Assessment/Plan (1) Sepsis Assessment/Plan: -urine growing enterococcus -original blood cultures positive for enterococcus, repeat blood cultures currently NGTD -ID following -can discharge on oral ampicillin -continue augmentin Code(s): A41.9 - SEPSIS, UNSPECIFIED ORGANISM Qualifiers: Sepsis type: sepsis due to unspecified organism Qualified Code(s): A41.9 - Sepsis, unspecified organism (2) UTI (urinary tract infection) Assessment/Plan: -with hematuria but now resolved -appreciate urology assistance -source of sepsis -augmentin as above Code(s): N39.0 - URINARY TRACT INFECTION, SITE NOT SPECIFIED Qualifiers: Urinary tract infection type: acute cystitis Hematuria presence: with hematuria Qualified Code(s): N30.01 - Acute cystitis with hematuria (3) Lactic acid acidosis Assessment/Plan: -resolved Code(s): E87.2 - ACIDOSIS (4) Metabolic encephalopathy Assessment/Plan: -at baseline Code(s): G93.41 - METABOLIC ENCEPHALOPATHY (5) HTN (hypertension) Assessment/Plan: -continue toprol and amlodipine with hold parameters Code(s): I10 - ESSENTIAL (PRIMARY) HYPERTENSION (6) Dementia Assessment/Plan: -at baseline Code(s): F03.90 - UNSPECIFIED DEMENTIA WITHOUT BEHAVIORAL DISTURBANCE (7) Hypernatremia -resolved (8) Hypomagnesemia -replaced (9) FTT -continue ensure Dispo -awaiting placement -continue current management
[2016-06-22] MEDS: DRONABINOL 2.5 MG CAPSULE PO SCH ×2 (12:15→17:35)
[2016-06-22] MEDS: NYSTATIN/TRIAMCINOLONE TOPICAL CREAM 15 GM TUBE TP SCH ×2 (12:17→22:41)
[2016-06-22] MEDS: COLLAGENASE CLOSTRIDIUM HIST. 30 GRAMS TUBE TP SCH (12:18)
--- NOTE | 2016-06-22 15:36 | PN ---
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, Physician History of Present Illness: doing well no complaints or events - Current Medication List Current Medications: Active Medications Acetaminophen (Tylenol -) 650 mg PO Q4H PRN PRN Reason: FEVER OR PAIN Last Admin: 06/21/16 09:28 Dose: 650 mg Amoxicillin/Clavulanate Potassium (Augmentin - 500mg Tablet) 1 tab PO TIDCM [facility] Last Admin: 06/22/16 12:16 Dose: 1 tab Ascorbic Acid (Vitamin C -) 500 mg PO DAILY [facility] Last Admin: 06/22/16 10:14 Dose: 500 mg Atorvastatin Calcium (Lipitor -) 10 mg PO HS [facility] Last Admin: 06/21/16 21:22 Dose: 10 mg Collagenase (Santyl -) 1 applic TP DAILY [facility] Last Admin: 06/22/16 12:18 Dose: 1 applic Dronabinol (Marinol -) 2.5 mg PO BIDLS [facility] Last Admin: 06/22/16 12:15 Dose: 2.5 mg Finasteride (Proscar -) 5 mg PO DAILY [facility] Last Admin: 06/22/16 10:14 Dose: 5 mg Haloperidol (Haldol Injection (Fast Acting) -) 2 mg IM Q4H PRN PRN Reason: AGITATION Last Admin: 06/22/16 02:19 Dose: 2 mg Heparin Sodium (Porcine) (Heparin -) 5,000 unit SQ TID [facility] Last Admin: 06/22/16 15:29 Dose: 5,000 unit Lactobacillus Acidophilus (Bacid -) 1 tab PO DAILY [facility] Last Admin: 06/22/16 10:14 Dose: 1 tab Lorazepam (Ativan -) 0.5 mg PO HS [facility] Last Admin: 06/21/16 21:22 Dose: 0.5 mg Magnesium Oxide (Mag-Ox -) 400 mg PO BID [facility] Last Admin: 06/22/16 10:13 Dose: 400 mg Metoprolol Succinate (Toprol Xl -) 25 mg PO DAILY [facility] Last Admin: 06/22/16 10:15 Dose: 25 mg Nystatin/Triamcinolone Acetonide (Mycolog Ii Cream -) 1 applic TP BID [facility] Last Admin: 06/22/16 12:17 Dose: 1 applic Pantoprazole Sodium (Protonix -) 40 mg PO DAILY [facility] Last Admin: 06/22/16 10:14 Dose: 40 mg Potassium Phos/Sodium Phos (Phos-Nak Packet -) 1 packet PO BID [facility] Last Admin: 06/22/16 10:16 Dose: 1 packet Tamsulosin HCl (Flomax -) 0.4 mg PO [facility] Last Admin: 06/21/16 21:21 Dose: 0.4 mg Trazodone HCl (Desyrel -) 37.5 mg PO [facility] Last Admin: 06/21/16 21:25 Dose: 37.5 mg - Objective Vital Signs: Vital Signs Temperature 98.3 F 06/22/16 14:47 Pulse Rate 82 06/22/16 14:47 Respiratory Rate 18 06/22/16 14:47 Blood Pressure 102/66 06/22/16 14:47 O2 Sat by Pulse Oximetry (%) 95 06/22/16 09:00 Constitutional: Yes: No Distress, Calm Cardiovascular: Yes: S1, S2 Respiratory: Yes: Regular, CTA Bilaterally Gastrointestinal: Yes: Normal Bowel Sounds, Soft Musculoskeletal: Yes: WNL Extremities: Yes: WNL Neurological: Yes: Alert, Oriented Psychiatric: Yes: Alert, Oriented Labs: CBC, BMP 06/17/16 06:15 06/17/16 06:15 INR, PTT INR 1.18 (0.82-1.09) H 06/20/16 15:00 Assessment/Plan Problem List - Problems (1) Sepsis Code(s): A41.9 - SEPSIS, UNSPECIFIED ORGANISM Qualifiers: Sepsis type: sepsis due to unspecified organism Qualified Code(s): A41.9 - Sepsis, unspecified organism (2) UTI (urinary tract infection) Code(s): N39.0 - URINARY TRACT INFECTION, SITE NOT SPECIFIED Qualifiers: Urinary tract infection type: acute cystitis Hematuria presence: with hematuria Qualified Code(s): N30.01 - Acute cystitis with hematuria (3) Lactic acid acidosis Code(s): E87.2 - ACIDOSIS (4) Metabolic encephalopathy Code(s): G93.41 - METABOLIC ENCEPHALOPATHY (5) HTN (hypertension) Code(s): I10 - ESSENTIAL (PRIMARY) HYPERTENSION (6) Dementia Code(s): F03.90 - UNSPECIFIED DEMENTIA WITHOUT BEHAVIORAL DISTURBANCE 7 gram positive bacteremia plan continue current mgmt rest as per primary team awaiting for placement continue oral abx total of 14 days
--- NOTE | 2016-06-22 16:55 | PN ---
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 (short form) - Note 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: s: awake, no meaningful communication, appears comfortable, no overnight events o: Vital Signs Period Temp Pulse Resp BP Sys/Kerr Pulse Ox Last 24 Hr 97 F-98.3 F 78-97 16-20 102-152/66-82 95 awake, nad, cachectic jvd flat, neck supple ctabl, poor effort rrr, nl s1, s2 no mrg ext without e/c/c alert but not non-verbal no jaundice, diaphoresis Current Medications Generic Name Dose Route Start Last Admin Trade Name Freq PRN Reason Stop Dose Admin Acetaminophen 650 mg 06/12/16 10:27 06/21/16 09:28 Tylenol - PO 650 mg Q4H PRN Administration FEVER OR PAIN Amoxicillin/Clavulanate Potassium 1 tab 06/19/16 17:30 06/22/16 12:16 Augmentin - 500mg Tablet PO 1 tab TIDCM [facility] Administration Ascorbic Acid 500 mg 06/11/16 10:00 06/22/16 10:14 Vitamin C - PO 500 mg DAILY [facility] Administration Atorvastatin Calcium 10 mg 06/10/16 22:00 06/21/16 21:22 Lipitor - PO 10 mg HS [facility] Administration Collagenase 1 applic 06/11/16 10:00 06/22/16 12:18 Santyl - TP 1 applic DAILY [facility] Administration Dronabinol 2.5 mg 06/10/16 17:30 06/22/16 12:15 Marinol - PO 2.5 mg BIDLS [facility] Administration Finasteride 5 mg 06/11/16 10:00 06/22/16 10:14 Proscar - PO 5 mg DAILY [facility] Administration Haloperidol 2 mg 06/10/16 12:29 06/22/16 02:19 Haldol Injection (Fast Acting) - IM 2 mg Q4H PRN Administration AGITATION Heparin Sodium (Porcine) 5,000 unit 06/10/16 14:00 06/22/16 15:29 Heparin - SQ 5,000 unit TID [facility] Administration Lactobacillus Acidophilus 1 tab 06/11/16 10:00 06/22/16 10:14 Bacid - PO 1 tab DAILY [facility] Administration Lorazepam 0.5 mg 06/10/16 22:00 06/21/16 21:22 Ativan - PO 0.5 mg HS [facility] Administration Magnesium Oxide 400 mg 06/16/16 12:30 06/22/16 10:13 Mag-Ox - PO 400 mg BID [facility] Administration Metoprolol Succinate 25 mg 06/10/16 19:12 06/22/16 10:15 Toprol Xl - PO 25 mg DAILY [facility] Administration Nystatin/Triamcinolone Acetonide 1 applic 06/19/16 22:00 06/22/16 12:17 Mycolog Ii Cream - TP 1 applic BID [facility] Administration Pantoprazole Sodium 40 mg 06/11/16 10:00 06/22/16 10:14 Protonix - PO 40 mg DAILY [facility] Administration Potassium Phos/Sodium Phos 1 packet 06/16/16 12:30 06/22/16 10:16 Phos-Nak Packet - PO 1 packet BID [facility] Administration Tamsulosin HCl 0.4 mg 06/10/16 22:00 06/21/16 21:21 Flomax - PO 0.4 mg HS [facility] Administration Trazodone HCl 37.5 mg 06/10/16 22:00 06/21/16 21:25 Desyrel - PO 37.5 mg HS [facility] Administration CBC, BMP 06/17/16 06:15 06/17/16 06:15 EKG 06/10 12:21: uninterpretable due to baseline artifact EKG 06/10 14:46 Poor quality/baseline. Sinus tach with diffuse ST abnormalities. anterior ST sagging. possible inferior q waves. low limb voltages. abd CT: fecal retention, sacral decub with surrounding subcut air/abscess a/p: 80 yo with h/o htn, bph, advanced dementia who sent to ER for hematuria and noted to have UTI with sepsis complicated by elevated cardiac enzymes. positive trops: - borderline trop elevation with flat trend and low ck index, not consistent with acs, likely related to likely demand in setting of infection and tachycardia. - started low dose atorvastatin. can consider asa if urology amenable. - cont metoprolol - echo done here this admit was non-diagnostic due to pt agitation/lack of cooperation htn - remains stable/controlled on bb sepsis/uti/hematuria - mgm't per pmd/urology/ID
[2016-06-22] MEDS: TAMSULOSIN HCL 0.4 MG CAP.ER.24H (FP) PO SCH (22:40)
[2016-06-22] MEDS: ATORVASTATIN CA 10 MG TABLET (FP) PO SCH (22:40)
[2016-06-22] MEDS: LORazepam 0.5 MG TABLET PO SCH (22:40)
[2016-06-22] MEDS: traZODone HCL 50 MG TABLET (FP) PO SCH (22:40)
[2016-06-23] MEDS: HEPARIN NA (PORCINE) 5,000 UNITS/ML 1ML VIAL SQ SCH (06:59)
[2016-06-23 07:59] LABS: BASOPHIL 0.4 % (0-2.0); EOSINOPHIL 0.9 % (0-4.5); MCH 27.5 pg (25.7-33.7); MCHC 32.7 g/dl (32.0-35.9); MEAN CELL VOLUME 83.9 fl (80-96); MEAN PLT VOLUME 8.1 fl (7.5-11.1); NEUTROPHILS 78.9 % (42.8-82.8); PLATELET COUNT 248 K/MM3 (134-434); RDW 17.4 % (11.9-15.9); WHITE BLOOD COUNT 11.7 K/mm3 (4.0-10.0)
[2016-06-23] MEDS: AMOX TR/POT CLAV 500MG/125MG TABLETS (FP) PO SCH ×3 (08:15→17:28)
[2016-06-23 08:27] LABS: MAGNESIUM 1.8 mg/dL (1.8-2.4)
[2016-06-23 08:31] LABS: COCKROFT - GAULT 80.15; CREATININE 0.7 mg/dL (0.7-1.3); PHOSPHOROUS 2.6 mg/dL (2.5-4.9)
[2016-06-23] MEDS: NAPH,MB-DB/K PH,MBDB POWDER PACKET PO SCH ×2 (09:02→21:30)
[2016-06-23] MEDS: PANTOPRAZOLE 40 MG TABLET (FP) PO SCH (09:02)
[2016-06-23] MEDS: ASCORBIC ACID 500 MG TABLET (FP) PO SCH (09:02)
[2016-06-23] MEDS: FINASTERIDE 5 MG TABLET (FP) PO SCH (09:02)
[2016-06-23] MEDS: METOPROLOL SUCCINATE 25 MG TAB.SR.24H (FP) PO SCH (09:02)
[2016-06-23] MEDS: MAGNESIUM OXIDE 400 MG TABLET (FP) PO SCH ×2 (09:02→21:30)
[2016-06-23] MEDS: LACTOBACILLUS ACIDOPHILUS 1 EACH TAB (FP) PO SCH (09:02)
[2016-06-23] MEDS: NYSTATIN/TRIAMCINOLONE TOPICAL CREAM 15 GM TUBE TP SCH ×2 (09:03→21:30)
[2016-06-23] MEDS: COLLAGENASE CLOSTRIDIUM HIST. 30 GRAMS TUBE TP SCH (09:03)
[2016-06-23] MEDS: DRONABINOL 2.5 MG CAPSULE PO SCH (13:44)
--- NOTE | 2016-06-23 15:28 | PN ---
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, Physician Chief Complaint: Mr Mcdonald says he is fine. Unable to obtain further subjective. - Current Medication List Current Medications: Active Medications Acetaminophen (Tylenol -) 650 mg PO Q4H PRN PRN Reason: FEVER OR PAIN Last Admin: 06/21/16 09:28 Dose: 650 mg Amoxicillin/Clavulanate Potassium (Augmentin - 500mg Tablet) 1 tab PO TIDCM [facility] Last Admin: 06/23/16 12:44 Dose: Not Given Ascorbic Acid (Vitamin C -) 500 mg PO DAILY [facility] Last Admin: 06/23/16 09:02 Dose: 500 mg Atorvastatin Calcium (Lipitor -) 10 mg PO HS [facility] Last Admin: 06/22/16 22:40 Dose: 10 mg Collagenase (Santyl -) 1 applic TP DAILY [facility] Last Admin: 06/23/16 09:03 Dose: 1 applic Finasteride (Proscar -) 5 mg PO DAILY [facility] Last Admin: 06/23/16 09:02 Dose: 5 mg Haloperidol (Haldol Injection (Fast Acting) -) 2 mg IM Q4H PRN PRN Reason: AGITATION Last Admin: 06/22/16 02:19 Dose: 2 mg Lactobacillus Acidophilus (Bacid -) 1 tab PO DAILY [facility] Last Admin: 06/23/16 09:02 Dose: 1 tab Magnesium Oxide (Mag-Ox -) 400 mg PO BID [facility] Last Admin: 06/23/16 09:02 Dose: 400 mg Metoprolol Succinate (Toprol Xl -) 25 mg PO DAILY [facility] Last Admin: 06/23/16 09:02 Dose: 25 mg Nystatin/Triamcinolone Acetonide (Mycolog Ii Cream -) 1 applic TP BID [facility] Last Admin: 06/23/16 09:03 Dose: 1 applic Pantoprazole Sodium (Protonix -) 40 mg PO DAILY [facility] Last Admin: 06/23/16 09:02 Dose: 40 mg Potassium Phos/Sodium Phos (Phos-Nak Packet -) 1 packet PO BID [facility] Last Admin: 06/23/16 09:02 Dose: 1 packet Tamsulosin HCl (Flomax -) 0.4 mg PO HS [facility] Last Admin: 06/22/16 22:40 Dose: 0.4 mg Trazodone HCl (Desyrel -) 37.5 mg PO HS [facility] Last Admin: 06/22/16 22:40 Dose: 37.5 mg - Objective Vital Signs: Vital Signs Temperature 98.3 F 06/23/16 15:23 Pulse Rate 81 06/23/16 15:23 Respiratory Rate 20 06/23/16 15:23 Blood Pressure 102/59 06/23/16 15:23 O2 Sat by Pulse Oximetry (%) 95 06/23/16 09:00 Constitutional: Yes: Well Nourished, No Distress, Calm Cardiovascular: Yes: Regular Rate and Rhythm. No: Gallop, Murmur, Rub Respiratory: Yes: Regular, CTA Bilaterally. No: Rales, Rhonchi, Wheezes Gastrointestinal: Yes: Normal Bowel Sounds, Soft. No: Distention, Tenderness Extremities: Yes: WNL Edema: No Labs: CBC, BMP 06/23/16 06:20 06/23/16 06:20 INR, PTT INR 1.18 (0.82-1.09) H 06/20/16 15:00 Problem List - Problems (1) Sepsis Code(s): A41.9 - SEPSIS, UNSPECIFIED ORGANISM Qualifiers: Sepsis type: sepsis due to unspecified organism Qualified Code(s): A41.9 - Sepsis, unspecified organism (2) UTI (urinary tract infection) Code(s): N39.0 - URINARY TRACT INFECTION, SITE NOT SPECIFIED Qualifiers: Urinary tract infection type: acute cystitis Hematuria presence: with hematuria Qualified Code(s): N30.01 - Acute cystitis with hematuria (3) Lactic acid acidosis Code(s): E87.2 - ACIDOSIS (4) Metabolic encephalopathy Code(s): G93.41 - METABOLIC ENCEPHALOPATHY (5) HTN (hypertension) Code(s): I10 - ESSENTIAL (PRIMARY) HYPERTENSION (6) Dementia Code(s): F03.90 - UNSPECIFIED DEMENTIA WITHOUT BEHAVIORAL DISTURBANCE Assessment/Plan (1) Sepsis Assessment/Plan: -continue augmentin per ID recommendations Code(s): A41.9 - SEPSIS, UNSPECIFIED ORGANISM Qualifiers: Sepsis type: sepsis due to unspecified organism Qualified Code(s): A41.9 - Sepsis, unspecified organism (2) UTI (urinary tract infection) Assessment/Plan: -augmentin as above Code(s): N39.0 - URINARY TRACT INFECTION, SITE NOT SPECIFIED Qualifiers: Urinary tract infection type: acute cystitis Hematuria presence: with hematuria Qualified Code(s): N30.01 - Acute cystitis with hematuria (3) Lactic acid acidosis Assessment/Plan: -resolved Code(s): E87.2 - ACIDOSIS (4) Metabolic encephalopathy Assessment/Plan: -at baseline Code(s): G93.41 - METABOLIC ENCEPHALOPATHY (5) HTN (hypertension) Assessment/Plan: -continue toprol and amlodipine with hold parameters Code(s): I10 - ESSENTIAL (PRIMARY) HYPERTENSION (6) Dementia Assessment/Plan: -at baseline Code(s): F03.90 - UNSPECIFIED DEMENTIA WITHOUT BEHAVIORAL DISTURBANCE (7) Hypernatremia -resolved (8) Hypomagnesemia -replaced (9) FTT -continue ensure Dispo -awaiting placement -continue current management
[2016-06-23] MEDS: TAMSULOSIN HCL 0.4 MG CAP.ER.24H (FP) PO SCH (21:29)
[2016-06-23] MEDS: traZODone HCL 50 MG TABLET (FP) PO SCH (21:29)
[2016-06-23] MEDS: ATORVASTATIN CA 10 MG TABLET (FP) PO SCH (21:29)
--- NOTE | 2016-06-23 21:48 | PN ---
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, Physician History of Present Illness: stable no new events no new issues - Current Medication List Current Medications: Active Medications Acetaminophen (Tylenol -) 650 mg PO Q4H PRN PRN Reason: FEVER OR PAIN Last Admin: 06/21/16 09:28 Dose: 650 mg Amoxicillin/Clavulanate Potassium (Augmentin - 500mg Tablet) 1 tab PO TIDCM [facility] Last Admin: 06/23/16 17:28 Dose: 1 tab Ascorbic Acid (Vitamin C -) 500 mg PO DAILY [facility] Last Admin: 06/23/16 09:02 Dose: 500 mg Atorvastatin Calcium (Lipitor -) 10 mg PO HS [facility] Last Admin: 06/23/16 21:29 Dose: 10 mg Collagenase (Santyl -) 1 applic TP DAILY [facility] Last Admin: 06/23/16 09:03 Dose: 1 applic Finasteride (Proscar -) 5 mg PO DAILY [facility] Last Admin: 06/23/16 09:02 Dose: 5 mg Haloperidol (Haldol Injection (Fast Acting) -) 2 mg IM Q4H PRN PRN Reason: AGITATION Last Admin: 06/22/16 02:19 Dose: 2 mg Lactobacillus Acidophilus (Bacid -) 1 tab PO DAILY [facility] Last Admin: 06/23/16 09:02 Dose: 1 tab Magnesium Oxide (Mag-Ox -) 400 mg PO BID [facility] Last Admin: 06/23/16 21:30 Dose: 400 mg Metoprolol Succinate (Toprol Xl -) 25 mg PO DAILY [facility] Last Admin: 06/23/16 09:02 Dose: 25 mg Nystatin/Triamcinolone Acetonide (Mycolog Ii Cream -) 1 applic TP BID [facility] Last Admin: 06/23/16 21:30 Dose: 1 applic Pantoprazole Sodium (Protonix -) 40 mg PO DAILY [facility] Last Admin: 06/23/16 09:02 Dose: 40 mg Potassium Phos/Sodium Phos (Phos-Nak Packet -) 1 packet PO BID [facility] Last Admin: 06/23/16 21:30 Dose: 1 packet Tamsulosin HCl (Flomax -) 0.4 mg PO HS [facility] Last Admin: 06/23/16 21:29 Dose: 0.4 mg Trazodone HCl (Desyrel -) 37.5 mg PO HS [facility] Last Admin: 06/23/16 21:29 Dose: 37.5 mg - Objective Vital Signs: Vital Signs Temperature 98.5 F 06/23/16 20:23 Pulse Rate 87 06/23/16 20:23 Respiratory Rate 20 06/23/16 21:00 Blood Pressure 135/74 06/23/16 20:23 O2 Sat by Pulse Oximetry (%) 94 L 06/23/16 21:00 Constitutional: Yes: No Distress, Calm Cardiovascular: Yes: S1, S2 Respiratory: Yes: Regular, CTA Bilaterally Gastrointestinal: Yes: Normal Bowel Sounds, Soft Genitourinary: Yes: [place] Present Musculoskeletal: Yes: WNL Extremities: Yes: WNL Neurological: Yes: Alert, Other Labs: CBC, BMP 06/23/16 06:20 06/23/16 06:20 INR, PTT INR 1.18 (0.82-1.09) H 06/20/16 15:00 Assessment/Plan Problem List - Problems (1) Sepsis Code(s): A41.9 - SEPSIS, UNSPECIFIED ORGANISM Qualifiers: Sepsis type: sepsis due to unspecified organism Qualified Code(s): A41.9 - Sepsis, unspecified organism (2) UTI (urinary tract infection) Code(s): N39.0 - URINARY TRACT INFECTION, SITE NOT SPECIFIED Qualifiers: Urinary tract infection type: acute cystitis Hematuria presence: with hematuria Qualified Code(s): N30.01 - Acute cystitis with hematuria (3) Lactic acid acidosis Code(s): E87.2 - ACIDOSIS (4) Metabolic encephalopathy Code(s): G93.41 - METABOLIC ENCEPHALOPATHY (5) HTN (hypertension) Code(s): I10 - ESSENTIAL (PRIMARY) HYPERTENSION (6) Dementia Code(s): F03.90 - UNSPECIFIED DEMENTIA WITHOUT BEHAVIORAL DISTURBANCE 7 gram positive bacteremia plan continue current mgmt continue monitoring awaiting for placement continue oral abx total of 14 days once 14 days done no need for abx
[2016-06-24] MEDS: LACTOBACILLUS ACIDOPHILUS 1 EACH TAB (FP) PO SCH (09:00)
[2016-06-24] MEDS: FINASTERIDE 5 MG TABLET (FP) PO SCH (09:00)
[2016-06-24] MEDS: PANTOPRAZOLE 40 MG TABLET (FP) PO SCH (09:00)
[2016-06-24] MEDS: AMOX TR/POT CLAV 500MG/125MG TABLETS (FP) PO SCH ×3 (09:00→17:32)
[2016-06-24] MEDS: MAGNESIUM OXIDE 400 MG TABLET (FP) PO SCH ×2 (09:00→21:03)
[2016-06-24] MEDS: ASCORBIC ACID 500 MG TABLET (FP) PO SCH (09:00)
[2016-06-24] MEDS: NYSTATIN/TRIAMCINOLONE TOPICAL CREAM 15 GM TUBE TP SCH ×2 (09:01→21:09)
[2016-06-24] MEDS: NAPH,MB-DB/K PH,MBDB POWDER PACKET PO SCH ×2 (09:01→21:07)
[2016-06-24] MEDS: METOPROLOL SUCCINATE 25 MG TAB.SR.24H (FP) PO SCH (09:01)
[2016-06-24] MEDS: COLLAGENASE CLOSTRIDIUM HIST. 30 GRAMS TUBE TP SCH (09:02)
--- NOTE | 2016-06-24 11:03 | PN ---
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, Physician History of Present Illness: calm stable non verbal - Current Medication List Current Medications: Active Medications Acetaminophen (Tylenol -) 650 mg PO Q4H PRN PRN Reason: FEVER OR PAIN Last Admin: 06/21/16 09:28 Dose: 650 mg Amoxicillin/Clavulanate Potassium (Augmentin - 500mg Tablet) 1 tab PO TIDCM [facility] Last Admin: 06/24/16 09:00 Dose: 1 tab Ascorbic Acid (Vitamin C -) 500 mg PO DAILY [facility] Last Admin: 06/24/16 09:00 Dose: 500 mg Atorvastatin Calcium (Lipitor -) 10 mg PO HS [facility] Last Admin: 06/23/16 21:29 Dose: 10 mg Collagenase (Santyl -) 1 applic TP DAILY [facility] Last Admin: 06/24/16 09:02 Dose: 1 applic Finasteride (Proscar -) 5 mg PO DAILY [facility] Last Admin: 06/24/16 09:00 Dose: 5 mg Haloperidol (Haldol Injection (Fast Acting) -) 2 mg IM Q4H PRN PRN Reason: AGITATION Last Admin: 06/22/16 02:19 Dose: 2 mg Lactobacillus Acidophilus (Bacid -) 1 tab PO DAILY [facility] Last Admin: 06/24/16 09:00 Dose: 1 tab Magnesium Oxide (Mag-Ox -) 400 mg PO BID [facility] Last Admin: 06/24/16 09:00 Dose: 400 mg Metoprolol Succinate (Toprol Xl -) 25 mg PO DAILY [facility] Last Admin: 06/24/16 09:01 Dose: 25 mg Nystatin/Triamcinolone Acetonide (Mycolog Ii Cream -) 1 applic TP BID [facility] Last Admin: 06/24/16 09:01 Dose: 1 applic Pantoprazole Sodium (Protonix -) 40 mg PO DAILY [facility] Last Admin: 06/24/16 09:00 Dose: 40 mg Potassium Phos/Sodium Phos (Phos-Nak Packet -) 1 packet PO BID [facility] Last Admin: 06/24/16 09:01 Dose: 1 packet Tamsulosin HCl (Flomax -) 0.4 mg PO [facility] Last Admin: 06/23/16 21:29 Dose: 0.4 mg Trazodone HCl (Desyrel -) 37.5 mg PO HS [facility] Last Admin: 06/23/16 21:29 Dose: 37.5 mg - Objective Vital Signs: Vital Signs Temperature 98.3 F 05/17/17 07:35 Pulse Rate 84 06/24/16 07:35 Respiratory Rate 20 06/24/16 07:35 Blood Pressure 137/86 06/24/16 07:35 O2 Sat by Pulse Oximetry (%) 94 L 06/23/16 21:00 Constitutional: Yes: No Distress, Calm Cardiovascular: Yes: S1, S2 Respiratory: Yes: Regular, CTA Bilaterally Gastrointestinal: Yes: Normal Bowel Sounds, Soft Musculoskeletal: Yes: WNL Extremities: Yes: WNL Wound/Incision: Yes: Other Neurological: Yes: Alert Labs: CBC, BMP 06/23/16 06:20 06/23/16 06:20 INR, PTT INR 1.18 (0.82-1.09) H 06/20/16 15:00 Assessment/Plan Problem List - Problems (1) Sepsis Code(s): A41.9 - SEPSIS, UNSPECIFIED ORGANISM Qualifiers: Sepsis type: sepsis due to unspecified organism Qualified Code(s): A41.9 - Sepsis, unspecified organism (2) UTI (urinary tract infection) Code(s): N39.0 - URINARY TRACT INFECTION, SITE NOT SPECIFIED Qualifiers: Urinary tract infection type: acute cystitis Hematuria presence: with hematuria Qualified Code(s): N30.01 - Acute cystitis with hematuria (3) Lactic acid acidosis Code(s): E87.2 - ACIDOSIS (4) Metabolic encephalopathy Code(s): G93.41 - METABOLIC ENCEPHALOPATHY (5) HTN (hypertension) Code(s): I10 - ESSENTIAL (PRIMARY) HYPERTENSION (6) Dementia Code(s): F03.90 - UNSPECIFIED DEMENTIA WITHOUT BEHAVIORAL DISTURBANCE 7 gram positive bacteremia plan continue current mgmt continue monitoring finish the abx course rest as per the primary team
--- NOTE | 2016-06-24 13:45 | PN ---
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, Physician Chief Complaint: Unable to obtain today - Current Medication List Current Medications: Active Medications Acetaminophen (Tylenol -) 650 mg PO Q4H PRN PRN Reason: FEVER OR PAIN Last Admin: 06/21/16 09:28 Dose: 650 mg Amoxicillin/Clavulanate Potassium (Augmentin - 500mg Tablet) 1 tab PO TIDCM [facility] Last Admin: 06/24/16 12:58 Dose: 1 tab Ascorbic Acid (Vitamin C -) 500 mg PO DAILY [facility] Last Admin: 06/24/16 09:00 Dose: 500 mg Atorvastatin Calcium (Lipitor -) 10 mg PO HS [facility] Last Admin: 06/23/16 21:29 Dose: 10 mg Collagenase (Santyl -) 1 applic TP DAILY [facility] Last Admin: 06/24/16 09:02 Dose: 1 applic Finasteride (Proscar -) 5 mg PO DAILY [facility] Last Admin: 06/24/16 09:00 Dose: 5 mg Haloperidol (Haldol Injection (Fast Acting) -) 2 mg IM Q4H PRN PRN Reason: AGITATION Last Admin: 06/22/16 02:19 Dose: 2 mg Lactobacillus Acidophilus (Bacid -) 1 tab PO DAILY [facility] Last Admin: 06/24/16 09:00 Dose: 1 tab Magnesium Oxide (Mag-Ox -) 400 mg PO BID [facility] Last Admin: 06/24/16 09:00 Dose: 400 mg Metoprolol Succinate (Toprol Xl -) 25 mg PO DAILY [facility] Last Admin: 06/24/16 09:01 Dose: 25 mg Nystatin/Triamcinolone Acetonide (Mycolog Ii Cream -) 1 applic TP BID [facility] Last Admin: 06/24/16 09:01 Dose: 1 applic Pantoprazole Sodium (Protonix -) 40 mg PO DAILY [facility] Last Admin: 06/24/16 09:00 Dose: 40 mg Potassium Phos/Sodium Phos (Phos-Nak Packet -) 1 packet PO BID [facility] Last Admin: 06/24/16 09:01 Dose: 1 packet Tamsulosin HCl (Flomax -) 0.4 mg PO HS [facility] Last Admin: 06/23/16 21:29 Dose: 0.4 mg Trazodone HCl (Desyrel -) 37.5 mg PO HS [facility] Last Admin: 06/23/16 21:29 Dose: 37.5 mg - Objective Vital Signs: Vital Signs Temperature 98.1 F 06/24/16 09:00 Pulse Rate 88 06/24/16 09:00 Respiratory Rate 16 06/24/16 09:00 Blood Pressure 129/71 06/24/16 09:00 O2 Sat by Pulse Oximetry (%) 94 L 06/24/16 09:00 Constitutional: Yes: Well Nourished, No Distress, Calm Cardiovascular: Yes: Regular Rate and Rhythm. No: Gallop, Murmur, Rub Respiratory: Yes: Regular, CTA Bilaterally. No: Rales, Rhonchi, Wheezes Gastrointestinal: Yes: Normal Bowel Sounds, Soft. No: Distention, Tenderness Extremities: Yes: WNL Edema: No Labs: CBC, BMP 06/23/16 06:20 06/23/16 06:20 INR, PTT INR 1.18 (0.82-1.09) H 06/20/16 15:00 Problem List - Problems (1) Sepsis Code(s): A41.9 - SEPSIS, UNSPECIFIED ORGANISM Qualifiers: Sepsis type: sepsis due to unspecified organism Qualified Code(s): A41.9 - Sepsis, unspecified organism (2) UTI (urinary tract infection) Code(s): N39.0 - URINARY TRACT INFECTION, SITE NOT SPECIFIED Qualifiers: Urinary tract infection type: acute cystitis Hematuria presence: with hematuria Qualified Code(s): N30.01 - Acute cystitis with hematuria (3) Lactic acid acidosis Code(s): E87.2 - ACIDOSIS (4) Metabolic encephalopathy Code(s): G93.41 - METABOLIC ENCEPHALOPATHY (5) HTN (hypertension) Code(s): I10 - ESSENTIAL (PRIMARY) HYPERTENSION (6) Dementia Code(s): F03.90 - UNSPECIFIED DEMENTIA WITHOUT BEHAVIORAL DISTURBANCE Assessment/Plan (1) Sepsis Assessment/Plan: -continue augmentin per ID recommendations -day 5 Code(s): A41.9 - SEPSIS, UNSPECIFIED ORGANISM Qualifiers: Sepsis type: sepsis due to unspecified organism Qualified Code(s): A41.9 - Sepsis, unspecified organism (2) UTI (urinary tract infection) Assessment/Plan: -augmentin as above Code(s): N39.0 - URINARY TRACT INFECTION, SITE NOT SPECIFIED Qualifiers: Urinary tract infection type: acute cystitis Hematuria presence: with hematuria Qualified Code(s): N30.01 - Acute cystitis with hematuria (3) Lactic acid acidosis Assessment/Plan: -resolved Code(s): E87.2 - ACIDOSIS (4) Metabolic encephalopathy Assessment/Plan: -at baseline Code(s): G93.41 - METABOLIC ENCEPHALOPATHY (5) HTN (hypertension) Assessment/Plan: -continue toprol and amlodipine with hold parameters Code(s): I10 - ESSENTIAL (PRIMARY) HYPERTENSION (6) Dementia Assessment/Plan: -at baseline Code(s): F03.90 - UNSPECIFIED DEMENTIA WITHOUT BEHAVIORAL DISTURBANCE (7) Hypernatremia -resolved (8) Hypomagnesemia -replaced (9) FTT -continue ensure Dispo -awaiting placement -continue current management
[2016-06-24] MEDS: TAMSULOSIN HCL 0.4 MG CAP.ER.24H (FP) PO SCH (21:02)
[2016-06-24] MEDS: ATORVASTATIN CA 10 MG TABLET (FP) PO SCH (21:03)
[2016-06-24] MEDS ORDERED: PT OWN MED DRAWER 7, Y5N ONE (21:05)
[2016-06-24] MEDS: traZODone HCL 50 MG TABLET (FP) PO SCH (21:07)
[2016-06-25 08:51] LABS: BASOPHIL 0.3 % (0-2.0); EOSINOPHIL 2.2 % (0-4.5); MCH 27.6 pg (25.7-33.7); MCHC 32.6 g/dl (32.0-35.9); MEAN CELL VOLUME 84.8 fl (80-96); MEAN PLT VOLUME 8.3 fl (7.5-11.1); NEUTROPHILS 75.2 % (42.8-82.8); PLATELET COUNT 217 K/MM3 (134-434); RDW 18.3 % (11.9-15.9); WHITE BLOOD COUNT 8.7 K/mm3 (4.0-10.0)
[2016-06-25 09:03] LABS: CALCIUM 7.7 mg/dL (8.5-10.1); COCKROFT - GAULT 80.15; CREATININE 0.7 mg/dL (0.7-1.3)
[2016-06-25] MEDS: ASCORBIC ACID 500 MG TABLET (FP) PO SCH (09:31)
[2016-06-25] MEDS: AMOX TR/POT CLAV 500MG/125MG TABLETS (FP) PO SCH ×3 (09:31→18:14)
[2016-06-25] MEDS: NAPH,MB-DB/K PH,MBDB POWDER PACKET PO SCH ×2 (09:31→23:54)
[2016-06-25] MEDS: FINASTERIDE 5 MG TABLET (FP) PO SCH (09:31)
[2016-06-25] MEDS: MAGNESIUM OXIDE 400 MG TABLET (FP) PO SCH ×2 (09:31→23:54)
[2016-06-25] MEDS: PANTOPRAZOLE 40 MG TABLET (FP) PO SCH (09:31)
[2016-06-25] MEDS: NYSTATIN/TRIAMCINOLONE TOPICAL CREAM 15 GM TUBE TP SCH (09:31)
[2016-06-25] MEDS: METOPROLOL SUCCINATE 25 MG TAB.SR.24H (FP) PO SCH (09:31)
[2016-06-25] MEDS: LACTOBACILLUS ACIDOPHILUS 1 EACH TAB (FP) PO SCH (09:31)
[2016-06-25] MEDS: COLLAGENASE CLOSTRIDIUM HIST. 30 GRAMS TUBE TP SCH (09:31)
--- NOTE | 2016-06-25 12:47 | PN ---
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, Physician History of Present Illness: patient doing well no new issues non verbal awaiting placement - Current Medication List Current Medications: Active Medications Acetaminophen (Tylenol -) 650 mg PO Q4H PRN PRN Reason: FEVER OR PAIN Last Admin: 06/21/16 09:28 Dose: 650 mg Amoxicillin/Clavulanate Potassium (Augmentin - 500mg Tablet) 1 tab PO TIDCM [facility] Last Admin: 06/25/16 12:45 Dose: 1 tab Ascorbic Acid (Vitamin C -) 500 mg PO DAILY [facility] Last Admin: 06/25/16 09:31 Dose: 500 mg Atorvastatin Calcium (Lipitor -) 10 mg PO HS [facility] Last Admin: 06/24/16 21:03 Dose: 10 mg Collagenase (Santyl -) 1 applic TP DAILY [facility] Last Admin: 06/25/16 09:31 Dose: 1 applic Finasteride (Proscar -) 5 mg PO DAILY [facility] Last Admin: 06/25/16 09:31 Dose: 5 mg Haloperidol (Haldol Injection (Fast Acting) -) 2 mg IM Q4H PRN PRN Reason: AGITATION Last Admin: 06/22/16 02:19 Dose: 2 mg Lactobacillus Acidophilus (Bacid -) 1 tab PO DAILY [facility] Last Admin: 06/25/16 09:31 Dose: 1 tab Magnesium Oxide (Mag-Ox -) 400 mg PO BID [facility] Last Admin: 06/25/16 09:31 Dose: 400 mg Metoprolol Succinate (Toprol Xl -) 25 mg PO DAILY [facility] Last Admin: 06/25/16 09:31 Dose: 25 mg Nystatin/Triamcinolone Acetonide (Mycolog Ii Cream -) 1 applic TP BID [facility] Last Admin: 06/25/16 09:31 Dose: 1 applic Pantoprazole Sodium (Protonix -) 40 mg PO DAILY [facility] Last Admin: 06/25/16 09:31 Dose: 40 mg Potassium Phos/Sodium Phos (Phos-Nak Packet -) 1 packet PO BID [facility] Last Admin: 06/25/16 09:31 Dose: 1 packet Tamsulosin HCl (Flomax -) 0.4 mg PO HS [facility] Last Admin: 06/24/16 21:02 Dose: 0.4 mg Trazodone HCl (Desyrel -) 37.5 mg PO HS [facility] Last Admin: 06/24/16 21:07 Dose: 37.5 mg - Objective Vital Signs: Vital Signs Temperature 98.2 F 06/25/16 10:00 Pulse Rate 93 H 06/25/16 10:00 Respiratory Rate 20 06/25/16 10:00 Blood Pressure 130/90 06/25/16 10:00 O2 Sat by Pulse Oximetry (%) 98 06/25/16 09:00 Constitutional: Yes: No Distress, Calm Cardiovascular: Yes: S1, S2 Respiratory: Yes: Regular, CTA Bilaterally Gastrointestinal: Yes: Normal Bowel Sounds, Soft Genitourinary: Yes: [place] Present Musculoskeletal: Yes: WNL Extremities: Yes: WNL Neurological: Yes: Alert, Other Psychiatric: Yes: Alert, Other Labs: CBC, BMP 06/25/16 06:30 06/25/16 06:30 INR, PTT INR 1.18 (0.82-1.09) H 06/20/16 15:00 Assessment/Plan Problem List - Problems (1) Sepsis Code(s): A41.9 - SEPSIS, UNSPECIFIED ORGANISM Qualifiers: Sepsis type: sepsis due to unspecified organism Qualified Code(s): A41.9 - Sepsis, unspecified organism (2) UTI (urinary tract infection) Code(s): N39.0 - URINARY TRACT INFECTION, SITE NOT SPECIFIED Qualifiers: Urinary tract infection type: acute cystitis Hematuria presence: with hematuria Qualified Code(s): N30.01 - Acute cystitis with hematuria (3) Lactic acid acidosis Code(s): E87.2 - ACIDOSIS (4) Metabolic encephalopathy Code(s): G93.41 - METABOLIC ENCEPHALOPATHY (5) HTN (hypertension) Code(s): I10 - ESSENTIAL (PRIMARY) HYPERTENSION (6) Dementia Code(s): F03.90 - UNSPECIFIED DEMENTIA WITHOUT BEHAVIORAL DISTURBANCE 7 gram positive bacteremia plan continue current mgmt continue monitoring finish the abx course rest as per the primary team patiwnt awaiting placement
--- NOTE | 2016-06-25 15:54 | PN ---
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, Physician Chief Complaint: Unable to obtain today - Current Medication List Current Medications: Active Medications Acetaminophen (Tylenol -) 650 mg PO Q4H PRN PRN Reason: FEVER OR PAIN Last Admin: 06/21/16 09:28 Dose: 650 mg Amoxicillin/Clavulanate Potassium (Augmentin - 500mg Tablet) 1 tab PO TIDCM [facility] Last Admin: 06/25/16 12:45 Dose: 1 tab Ascorbic Acid (Vitamin C -) 500 mg PO DAILY [facility] Last Admin: 06/25/16 09:31 Dose: 500 mg Atorvastatin Calcium (Lipitor -) 10 mg PO HS [facility] Last Admin: 06/24/16 21:03 Dose: 10 mg Collagenase (Santyl -) 1 applic TP DAILY [facility] Last Admin: 06/25/16 09:31 Dose: 1 applic Finasteride (Proscar -) 5 mg PO DAILY [facility] Last Admin: 06/25/16 09:31 Dose: 5 mg Haloperidol (Haldol Injection (Fast Acting) -) 2 mg IM Q4H PRN PRN Reason: AGITATION Last Admin: 06/22/16 02:19 Dose: 2 mg Lactobacillus Acidophilus (Bacid -) 1 tab PO DAILY [facility] Last Admin: 06/25/16 09:31 Dose: 1 tab Magnesium Oxide (Mag-Ox -) 400 mg PO BID [facility] Last Admin: 06/25/16 09:31 Dose: 400 mg Metoprolol Succinate (Toprol Xl -) 25 mg PO DAILY [facility] Last Admin: 06/25/16 09:31 Dose: 25 mg Nystatin/Triamcinolone Acetonide (Mycolog Ii Cream -) 1 applic TP BID [facility] Last Admin: 06/25/16 09:31 Dose: 1 applic Pantoprazole Sodium (Protonix -) 40 mg PO DAILY [facility] Last Admin: 06/25/16 09:31 Dose: 40 mg Potassium Phos/Sodium Phos (Phos-Nak Packet -) 1 packet PO BID [facility] Last Admin: 06/25/16 09:31 Dose: 1 packet Tamsulosin HCl (Flomax -) 0.4 mg PO HS [facility] Last Admin: 06/24/16 21:02 Dose: 0.4 mg Trazodone HCl (Desyrel -) 37.5 mg PO HS [facility] Last Admin: 06/24/16 21:07 Dose: 37.5 mg - Objective Vital Signs: Vital Signs Temperature 98.3 F 06/25/16 14:49 Pulse Rate 76 06/25/16 14:49 Respiratory Rate 18 06/25/16 14:49 Blood Pressure 99/58 06/25/16 14:49 O2 Sat by Pulse Oximetry (%) 98 06/25/16 09:00 Constitutional: Yes: Well Nourished, No Distress, Calm Cardiovascular: Yes: Regular Rate and Rhythm. No: Gallop, Murmur, Rub Respiratory: Yes: Regular, CTA Bilaterally. No: Rales, Rhonchi, Wheezes Gastrointestinal: Yes: Normal Bowel Sounds, Soft. No: Distention, Tenderness Extremities: Yes: WNL Edema: No Labs: CBC, BMP 06/25/16 06:30 06/25/16 06:30 INR, PTT INR 1.18 (0.82-1.09) H 06/20/16 15:00 Problem List - Problems (1) Sepsis Code(s): A41.9 - SEPSIS, UNSPECIFIED ORGANISM Qualifiers: Sepsis type: sepsis due to unspecified organism Qualified Code(s): A41.9 - Sepsis, unspecified organism (2) UTI (urinary tract infection) Code(s): N39.0 - URINARY TRACT INFECTION, SITE NOT SPECIFIED Qualifiers: Urinary tract infection type: acute cystitis Hematuria presence: with hematuria Qualified Code(s): N30.01 - Acute cystitis with hematuria (3) Lactic acid acidosis Code(s): E87.2 - ACIDOSIS (4) Metabolic encephalopathy Code(s): G93.41 - METABOLIC ENCEPHALOPATHY (5) HTN (hypertension) Code(s): I10 - ESSENTIAL (PRIMARY) HYPERTENSION (6) Dementia Code(s): F03.90 - UNSPECIFIED DEMENTIA WITHOUT BEHAVIORAL DISTURBANCE Assessment/Plan (1) Sepsis Assessment/Plan: -continue augmentin per ID recommendations -day 6 Code(s): A41.9 - SEPSIS, UNSPECIFIED ORGANISM Qualifiers: Sepsis type: sepsis due to unspecified organism Qualified Code(s): A41.9 - Sepsis, unspecified organism (2) UTI (urinary tract infection) Assessment/Plan: -augmentin as above Code(s): N39.0 - URINARY TRACT INFECTION, SITE NOT SPECIFIED Qualifiers: Urinary tract infection type: acute cystitis Hematuria presence: with hematuria Qualified Code(s): N30.01 - Acute cystitis with hematuria (3) Lactic acid acidosis Assessment/Plan: -resolved Code(s): E87.2 - ACIDOSIS (4) Metabolic encephalopathy Assessment/Plan: -at baseline Code(s): G93.41 - METABOLIC ENCEPHALOPATHY (5) HTN (hypertension) Assessment/Plan: -continue toprol and amlodipine with hold parameters Code(s): I10 - ESSENTIAL (PRIMARY) HYPERTENSION (6) Dementia Assessment/Plan: -at baseline Code(s): F03.90 - UNSPECIFIED DEMENTIA WITHOUT BEHAVIORAL DISTURBANCE (7) Hypernatremia -resolved (8) Hypomagnesemia -replaced (9) FTT -continue ensure Dispo -awaiting placement -continue current management
[2016-06-25] MEDS: traZODone HCL 50 MG TABLET (FP) PO SCH (23:53)
[2016-06-25] MEDS: ATORVASTATIN CA 10 MG TABLET (FP) PO SCH (23:53)
[2016-06-25] MEDS: TAMSULOSIN HCL 0.4 MG CAP.ER.24H (FP) PO SCH (23:53)
[2016-06-26] MEDS: NYSTATIN/TRIAMCINOLONE TOPICAL CREAM 15 GM TUBE TP SCH ×3 (07:51→21:09)
[2016-06-26] MEDS: AMOX TR/POT CLAV 500MG/125MG TABLETS (FP) PO SCH ×3 (08:43→17:22)
[2016-06-26] MEDS: FINASTERIDE 5 MG TABLET (FP) PO SCH (09:43)
[2016-06-26] MEDS: NAPH,MB-DB/K PH,MBDB POWDER PACKET PO SCH ×2 (09:43→21:09)
[2016-06-26] MEDS: MAGNESIUM OXIDE 400 MG TABLET (FP) PO SCH ×2 (09:43→21:09)
[2016-06-26] MEDS: LACTOBACILLUS ACIDOPHILUS 1 EACH TAB (FP) PO SCH (09:43)
[2016-06-26] MEDS: METOPROLOL SUCCINATE 25 MG TAB.SR.24H (FP) PO SCH (09:43)
[2016-06-26] MEDS: ASCORBIC ACID 500 MG TABLET (FP) PO SCH (09:43)
[2016-06-26] MEDS: PANTOPRAZOLE 40 MG TABLET (FP) PO SCH (09:43)
[2016-06-26] MEDS: COLLAGENASE CLOSTRIDIUM HIST. 30 GRAMS TUBE TP SCH (09:44)
--- NOTE | 2016-06-26 09:47 | PN ---
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, Physician History of Present Illness: stable no events patient doing well - Current Medication List Current Medications: Active Medications Acetaminophen (Tylenol -) 650 mg PO Q4H PRN PRN Reason: FEVER OR PAIN Last Admin: 06/21/16 09:28 Dose: 650 mg Amoxicillin/Clavulanate Potassium (Augmentin - 500mg Tablet) 1 tab PO TIDCM [facility] Last Admin: 06/26/16 08:43 Dose: 1 tab Ascorbic Acid (Vitamin C -) 500 mg PO DAILY [facility] Last Admin: 06/26/16 09:43 Dose: 500 mg Atorvastatin Calcium (Lipitor -) 10 mg PO HS [facility] Last Admin: 06/25/16 23:53 Dose: Not Given Collagenase (Santyl -) 1 applic TP DAILY [facility] Last Admin: 06/26/16 09:44 Dose: 1 applic Finasteride (Proscar -) 5 mg PO DAILY [facility] Last Admin: 06/26/16 09:43 Dose: 5 mg Haloperidol (Haldol Injection (Fast Acting) -) 2 mg IM Q4H PRN PRN Reason: AGITATION Last Admin: 06/22/16 02:19 Dose: 2 mg Lactobacillus Acidophilus (Bacid -) 1 tab PO DAILY [facility] Last Admin: 06/26/16 09:43 Dose: 1 tab Magnesium Oxide (Mag-Ox -) 400 mg PO BID [facility] Last Admin: 06/26/16 09:43 Dose: 400 mg Metoprolol Succinate (Toprol Xl -) 25 mg PO DAILY [facility] Last Admin: 06/26/16 09:43 Dose: 25 mg Nystatin/Triamcinolone Acetonide (Mycolog Ii Cream -) 1 applic TP BID [facility] Last Admin: 06/26/16 09:43 Dose: 1 applic Pantoprazole Sodium (Protonix -) 40 mg PO DAILY [facility] Last Admin: 06/26/16 09:43 Dose: 40 mg Potassium Phos/Sodium Phos (Phos-Nak Packet -) 1 packet PO BID [facility] Last Admin: 06/26/16 09:43 Dose: 1 packet Tamsulosin HCl (Flomax -) 0.4 mg PO HS [facility] Last Admin: 06/25/16 23:53 Dose: Not Given Trazodone HCl (Desyrel -) 37.5 mg PO HS [facility] Last Admin: 06/25/16 23:53 Dose: Not Given - Objective Vital Signs: Vital Signs Temperature 98.7 F 06/26/16 06:22 Pulse Rate 82 06/26/16 06:22 Respiratory Rate 20 06/26/16 06:22 Blood Pressure 130/67 06/26/16 06:22 O2 Sat by Pulse Oximetry (%) 98 06/25/16 21:00 Constitutional: Yes: No Distress, Calm Cardiovascular: Yes: S1, S2 Respiratory: Yes: Regular, CTA Bilaterally Gastrointestinal: Yes: Normal Bowel Sounds, Soft Musculoskeletal: Yes: WNL Extremities: Yes: WNL Neurological: Yes: Alert, Oriented Psychiatric: Yes: Alert, Oriented Labs: CBC, BMP 06/25/16 06:30 06/25/16 06:30 INR, PTT INR 1.18 (0.82-1.09) H 06/20/16 15:00 Assessment/Plan Problem List - Problems (1) Sepsis Code(s): A41.9 - SEPSIS, UNSPECIFIED ORGANISM Qualifiers: Sepsis type: sepsis due to unspecified organism Qualified Code(s): A41.9 - Sepsis, unspecified organism (2) UTI (urinary tract infection) Code(s): N39.0 - URINARY TRACT INFECTION, SITE NOT SPECIFIED Qualifiers: Urinary tract infection type: acute cystitis Hematuria presence: with hematuria Qualified Code(s): N30.01 - Acute cystitis with hematuria (3) Lactic acid acidosis Code(s): E87.2 - ACIDOSIS (4) Metabolic encephalopathy Code(s): G93.41 - METABOLIC ENCEPHALOPATHY (5) HTN (hypertension) Code(s): I10 - ESSENTIAL (PRIMARY) HYPERTENSION (6) Dementia Code(s): F03.90 - UNSPECIFIED DEMENTIA WITHOUT BEHAVIORAL DISTURBANCE 7 gram positive bacteremia plan continue current mgmt continue monitoring finish the abx course rest as per the primary team awaiting placement
--- NOTE | 2016-06-26 12:10 | PN ---
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, Physician Chief Complaint: Unable to obtain today - Current Medication List Current Medications: Active Medications Acetaminophen (Tylenol -) 650 mg PO Q4H PRN PRN Reason: FEVER OR PAIN Last Admin: 06/21/16 09:28 Dose: 650 mg Amoxicillin/Clavulanate Potassium (Augmentin - 500mg Tablet) 1 tab PO TIDCM [facility] Last Admin: 06/26/16 08:43 Dose: 1 tab Ascorbic Acid (Vitamin C -) 500 mg PO DAILY [facility] Last Admin: 06/26/16 09:43 Dose: 500 mg Atorvastatin Calcium (Lipitor -) 10 mg PO HS [facility] Last Admin: 06/25/16 23:53 Dose: Not Given Collagenase (Santyl -) 1 applic TP DAILY [facility] Last Admin: 06/26/16 09:44 Dose: 1 applic Finasteride (Proscar -) 5 mg PO DAILY [facility] Last Admin: 06/26/16 09:43 Dose: 5 mg Haloperidol (Haldol Injection (Fast Acting) -) 2 mg IM Q4H PRN PRN Reason: AGITATION Last Admin: 06/22/16 02:19 Dose: 2 mg Lactobacillus Acidophilus (Bacid -) 1 tab PO DAILY [facility] Last Admin: 06/26/16 09:43 Dose: 1 tab Magnesium Oxide (Mag-Ox -) 400 mg PO BID [facility] Last Admin: 06/26/16 09:43 Dose: 400 mg Metoprolol Succinate (Toprol Xl -) 25 mg PO DAILY [facility] Last Admin: 06/26/16 09:43 Dose: 25 mg Nystatin/Triamcinolone Acetonide (Mycolog Ii Cream -) 1 applic TP BID [facility] Last Admin: 06/26/16 09:43 Dose: 1 applic Pantoprazole Sodium (Protonix -) 40 mg PO DAILY [facility] Last Admin: 06/26/16 09:43 Dose: 40 mg Potassium Phos/Sodium Phos (Phos-Nak Packet -) 1 packet PO BID [facility] Last Admin: 06/26/16 09:43 Dose: 1 packet Tamsulosin HCl (Flomax -) 0.4 mg PO [facility] Last Admin: 06/25/16 23:53 Dose: Not Given Trazodone HCl (Desyrel -) 37.5 mg PO HS [facility] Last Admin: 06/25/16 23:53 Dose: Not Given - Objective Vital Signs: Vital Signs Temperature 98.7 F 06/26/16 06:22 Pulse Rate 82 06/26/16 06:22 Respiratory Rate 20 06/26/16 06:22 Blood Pressure 130/67 06/26/16 06:22 O2 Sat by Pulse Oximetry (%) 98 06/25/16 21:00 Constitutional: Yes: Well Nourished, No Distress, Calm Cardiovascular: Yes: Regular Rate and Rhythm. No: Gallop, Murmur, Rub Respiratory: Yes: Regular, CTA Bilaterally. No: Rales, Rhonchi, Wheezes Gastrointestinal: Yes: Normal Bowel Sounds, Soft. No: Distention, Tenderness Extremities: Yes: WNL Edema: No Labs: CBC, BMP 06/25/16 06:30 06/25/16 06:30 INR, PTT INR 1.18 (0.82-1.09) H 06/20/16 15:00 Problem List - Problems (1) Sepsis Code(s): A41.9 - SEPSIS, UNSPECIFIED ORGANISM Qualifiers: Sepsis type: sepsis due to unspecified organism Qualified Code(s): A41.9 - Sepsis, unspecified organism (2) UTI (urinary tract infection) Code(s): N39.0 - URINARY TRACT INFECTION, SITE NOT SPECIFIED Qualifiers: Urinary tract infection type: acute cystitis Hematuria presence: with hematuria Qualified Code(s): N30.01 - Acute cystitis with hematuria (3) Lactic acid acidosis Code(s): E87.2 - ACIDOSIS (4) Metabolic encephalopathy Code(s): G93.41 - METABOLIC ENCEPHALOPATHY (5) HTN (hypertension) Code(s): I10 - ESSENTIAL (PRIMARY) HYPERTENSION (6) Dementia Code(s): F03.90 - UNSPECIFIED DEMENTIA WITHOUT BEHAVIORAL DISTURBANCE Assessment/Plan (1) Sepsis Assessment/Plan: -continue augmentin per ID recommendations -day 7 -can stop antibiotics tomorrow Code(s): A41.9 - SEPSIS, UNSPECIFIED ORGANISM Qualifiers: Sepsis type: sepsis due to unspecified organism Qualified Code(s): A41.9 - Sepsis, unspecified organism (2) UTI (urinary tract infection) Assessment/Plan: -augmentin as above Code(s): N39.0 - URINARY TRACT INFECTION, SITE NOT SPECIFIED Qualifiers: Urinary tract infection type: acute cystitis Hematuria presence: with hematuria Qualified Code(s): N30.01 - Acute cystitis with hematuria (3) Lactic acid acidosis Assessment/Plan: -resolved Code(s): E87.2 - ACIDOSIS (4) Metabolic encephalopathy Assessment/Plan: -at baseline Code(s): G93.41 - METABOLIC ENCEPHALOPATHY (5) HTN (hypertension) Assessment/Plan: -continue toprol and amlodipine with hold parameters Code(s): I10 - ESSENTIAL (PRIMARY) HYPERTENSION (6) Dementia Assessment/Plan: -at baseline Code(s): F03.90 - UNSPECIFIED DEMENTIA WITHOUT BEHAVIORAL DISTURBANCE (7) Hypernatremia -resolved (8) Hypomagnesemia -replaced (9) FTT -continue ensure Dispo -awaiting placement -continue current management
[2016-06-26] MEDS: traZODone HCL 50 MG TABLET (FP) PO SCH (21:08)
[2016-06-26] MEDS: TAMSULOSIN HCL 0.4 MG CAP.ER.24H (FP) PO SCH (21:08)
[2016-06-26] MEDS: ATORVASTATIN CA 10 MG TABLET (FP) PO SCH (21:09)
--- NOTE | 2016-06-27 08:50 | PN ---
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 (short form) - Note 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: Patient seen and examined. Chart reviewed. Currently lying on his right side in bed alert and responsive at baseline mental status. Appears in no acute distress Denies any chest discomfort or other bodily pain. No apparent dyspnea. Labs and strategy planning consultant notes reviewed. Selected Entries 06/26/16 06/27/16 21:00 06:51 Temperature 98.1 F Pulse Rate 77 Respiratory 18 Rate Blood Pressure 157/64 O2 Sat by Pulse 98 Oximetry (%) Oxygen Delivery Room Air Method Laboratory Tests 06/25/16 06/25/16 06:30 06:30 WBC 8.7 Hgb 9.7 L Hct 29.9 L Plt Count 217 Sodium 141 Potassium 3.5 Chloride 101 Carbon Dioxide 27 BUN 15 Creatinine 0.7 Random Glucose 59 L Calcium 7.7 L Chest Clear Cor RRR Abdomen No tenderness No mass F/C in place Ext No edema No phlebitis Neuro No new focal deficit Confused Assessment and Plan Bacteremia Staph epi and Enterococcus faecalis On Rx as per ID Follow up blood culture negative UTI On Rx [place] catheter in place Dementia with superimposed toxic/metabolic encephalopathy Stable at baseline Anemia 9.7/29.9 Likely multi-factorial with element of acute/chronic disease Monitor Hypoalbuminemia 2.3 likely related to acute/chronic disease as well as nutritional factors Corrected Calcium 9.06 Hypokalemia 3.5 Replete Hypertension Monitor Hypernatremia Improved Continue current Rx Await placement decision
[2016-06-27] MEDS: FINASTERIDE 5 MG TABLET (FP) PO SCH (09:44)
[2016-06-27] MEDS: LACTOBACILLUS ACIDOPHILUS 1 EACH TAB (FP) PO SCH (09:44)
[2016-06-27] MEDS: METOPROLOL SUCCINATE 25 MG TAB.SR.24H (FP) PO SCH (09:44)
[2016-06-27] MEDS: PANTOPRAZOLE 40 MG TABLET (FP) PO SCH (09:44)
[2016-06-27] MEDS: ASCORBIC ACID 500 MG TABLET (FP) PO SCH (09:44)
[2016-06-27] MEDS: MAGNESIUM OXIDE 400 MG TABLET (FP) PO SCH ×2 (09:44→21:47)
[2016-06-27] MEDS: NYSTATIN/TRIAMCINOLONE TOPICAL CREAM 15 GM TUBE TP SCH ×2 (09:45→21:47)
[2016-06-27] MEDS: COLLAGENASE CLOSTRIDIUM HIST. 30 GRAMS TUBE TP SCH (09:45)
[2016-06-27] MEDS: NAPH,MB-DB/K PH,MBDB POWDER PACKET PO SCH ×2 (09:46→21:54)
[2016-06-27] MEDS: POTASSIUM CHLORIDE TABS 20 MEQ TABLET.ER (FP) PO SCH (09:56)
--- NOTE | 2016-06-27 17:16 | PN ---
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, Physician History of Present Illness: stable no events patient doing well minor cut on rt hand - Current Medication List Current Medications: Active Medications Acetaminophen (Tylenol -) 650 mg PO Q4H PRN PRN Reason: FEVER OR PAIN Last Admin: 06/21/16 09:28 Dose: 650 mg Ascorbic Acid (Vitamin C -) 500 mg PO DAILY [facility] Last Admin: 06/27/16 09:44 Dose: 500 mg Atorvastatin Calcium (Lipitor -) 10 mg PO HS [facility] Last Admin: 06/26/16 21:09 Dose: 10 mg Collagenase (Santyl -) 1 applic TP DAILY [facility] Last Admin: 06/27/16 09:45 Dose: 1 applic Finasteride (Proscar -) 5 mg PO DAILY [facility] Last Admin: 06/27/16 09:44 Dose: 5 mg Haloperidol (Haldol Injection (Fast Acting) -) 2 mg IM Q4H PRN PRN Reason: AGITATION Last Admin: 06/22/16 02:19 Dose: 2 mg Lactobacillus Acidophilus (Bacid -) 1 tab PO DAILY [facility] Last Admin: 06/27/16 09:44 Dose: 1 tab Magnesium Oxide (Mag-Ox -) 400 mg PO BID [facility] Last Admin: 06/27/16 09:44 Dose: 400 mg Metoprolol Succinate (Toprol Xl -) 25 mg PO DAILY [facility] Last Admin: 06/27/16 09:44 Dose: 25 mg Neomycin/Polymyxin/Bacitracin (Neosporin Topical Ointment -) 1 applic TP BID [facility] Nystatin/Triamcinolone Acetonide (Mycolog Ii Cream -) 1 applic TP BID [facility] Last Admin: 06/27/16 09:45 Dose: 1 applic Pantoprazole Sodium (Protonix -) 40 mg PO DAILY [facility] Last Admin: 06/27/16 09:44 Dose: 40 mg Potassium Chloride (K-Dur -) 20 meq PO DAILY [facility] Last Admin: 06/27/16 09:56 Dose: 20 meq Potassium Phos/Sodium Phos (Phos-Nak Packet -) 1 packet PO BID [facility] Last Admin: 06/27/16 09:46 Dose: 1 packet Tamsulosin HCl (Flomax -) 0.4 mg PO HS [facility] Last Admin: 06/26/16 21:08 Dose: 0.4 mg Trazodone HCl (Desyrel -) 37.5 mg PO HS [facility] Last Admin: 06/26/16 21:08 Dose: 37.5 mg - Objective Vital Signs: Vital Signs Temperature 98.1 F 06/27/16 16:20 Pulse Rate 76 06/27/16 16:20 Respiratory Rate 18 06/27/16 16:20 Blood Pressure 104/55 06/27/16 16:20 O2 Sat by Pulse Oximetry (%) 98 06/27/16 09:00 Constitutional: Yes: No Distress, Calm Cardiovascular: Yes: S1, S2 Respiratory: Yes: Regular, CTA Bilaterally Gastrointestinal: Yes: Normal Bowel Sounds, Soft Genitourinary: Yes: [place] Present Musculoskeletal: Yes: Other Extremities: Yes: Other Neurological: Yes: Alert Psychiatric: Yes: Alert Labs: CBC, BMP 06/25/16 06:30 06/25/16 06:30 INR, PTT INR 1.18 (0.82-1.09) H 06/20/16 15:00 Assessment/Plan Problem List - Problems (1) Sepsis Code(s): A41.9 - SEPSIS, UNSPECIFIED ORGANISM Qualifiers: Sepsis type: sepsis due to unspecified organism Qualified Code(s): A41.9 - Sepsis, unspecified organism (2) UTI (urinary tract infection) Code(s): N39.0 - URINARY TRACT INFECTION, SITE NOT SPECIFIED Qualifiers: Urinary tract infection type: acute cystitis Hematuria presence: with hematuria Qualified Code(s): N30.01 - Acute cystitis with hematuria (3) Lactic acid acidosis Code(s): E87.2 - ACIDOSIS (4) Metabolic encephalopathy Code(s): G93.41 - METABOLIC ENCEPHALOPATHY (5) HTN (hypertension) Code(s): I10 - ESSENTIAL (PRIMARY) HYPERTENSION (6) Dementia Code(s): F03.90 - UNSPECIFIED DEMENTIA WITHOUT BEHAVIORAL DISTURBANCE 7 gram positive bacteremia plan continue current mgmt continue monitoring abx course completed abx cream for the cut
[2016-06-27] MEDS: traZODone HCL 50 MG TABLET (FP) PO SCH (21:47)
[2016-06-27] MEDS: TAMSULOSIN HCL 0.4 MG CAP.ER.24H (FP) PO SCH (21:47)
[2016-06-27] MEDS: ATORVASTATIN CA 10 MG TABLET (FP) PO SCH (21:47)
[2016-06-27] MEDS: NEOMYCIN/POLYMYXIN/BACITRACIN (TRIPLE ANTIBIOTIC) 28 GM OINTMENT TP SCH (21:48)
[2016-06-28 07:57] LABS: BASOPHIL 0.3 % (0-2.0); EOSINOPHIL 3.4 % (0-4.5); MCH 27.8 pg (25.7-33.7); MCHC 32.8 g/dl (32.0-35.9); MEAN CELL VOLUME 84.9 fl (80-96); MEAN PLT VOLUME 8.4 fl (7.5-11.1); NEUTROPHILS 63.9 % (42.8-82.8); PLATELET COUNT 194 K/MM3 (134-434); RDW 18.1 % (11.9-15.9); WHITE BLOOD COUNT 6.8 K/mm3 (4.0-10.0)
[2016-06-28 08:27] LABS: ANION GAP 9 (8-16); CALCIUM 7.4 mg/dL (8.5-10.1); CO2 30 mmol/L (21-32); COCKROFT - GAULT 93.51; CREATININE 0.6 mg/dL (0.7-1.3); GLUCOSE,RANDOM 64 mg/dL (74-106); SGPT/ALT 20 U/L (12-78)
[2016-06-28 08:31] LABS: ALK PHOS 84 U/L (45-117); BILIRUBIN,TOTAL 0.6 mg/dL (0.2-1.0); SGOT/AST 21 U/L (15-37); TOT PROT 4.9 g/dl (6.4-8.2)
--- NOTE | 2016-06-28 08:51 | PN ---
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 (short form) - Note 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: Patient seen and examined. Chart reviewed. Currently lying on his left side in bed alert and responsive at baseline mental status. Appears in no acute distress Denies any chest discomfort or other bodily pain. No apparent dyspnea. Labs and marketing regional consultant notes reviewed. Selected Entries 06/27/16 06/28/16 21:00 06:10 Temperature 97.7 F Pulse Rate 55 L Respiratory 18 Rate Blood Pressure 137/63 O2 Sat by Pulse 98 Oximetry (%) Oxygen Delivery Room Air Method Laboratory Tests 06/28/16 06/28/16 07:00 07:00 WBC 6.8 Hgb 9.8 L Hct 30.0 L Plt Count 194 Sodium 140 Potassium 3.8 Chloride 101 Carbon Dioxide 30 BUN 18 Creatinine 0.6 L Random Glucose 64 L Calcium 7.4 L Total Bilirubin 0.6 D AST 21 D ALT 20 Alkaline Phosphatase 84 Total Protein 4.9 L Albumin 2.0 L Chest Clear Cor RRR Abdomen No tenderness No mass F/C in place Ext No edema No phlebitis Neuro No new focal deficit Confused Assessment and Plan Bacteremia Staph epi and Enterococcus faecalis On Rx as per ID Follow up blood culture negative UTI On Rx [place] catheter in place Dementia with superimposed toxic/metabolic encephalopathy Stable at baseline Anemia 9.7/29.9>>9.8/30.0 Likely multi-factorial with element of acute/ chronic disease Monitor Hypoalbuminemia 2.3>>2.0 likely related to acute/chronic disease as well as nutritional factors Corrected Calcium 9.06 Hypokalemia 3.5>>3.8 Replete as needed Hypertension Monitor Hypernatremia Improved Continue current Rx Await placement decision
[2016-06-28] MEDS: METOPROLOL SUCCINATE 25 MG TAB.SR.24H (FP) PO SCH (09:32)
[2016-06-28] MEDS: NAPH,MB-DB/K PH,MBDB POWDER PACKET PO SCH ×2 (09:32→21:42)
[2016-06-28] MEDS: LACTOBACILLUS ACIDOPHILUS 1 EACH TAB (FP) PO SCH (09:32)
[2016-06-28] MEDS: PANTOPRAZOLE 40 MG TABLET (FP) PO SCH (09:32)
[2016-06-28] MEDS: FINASTERIDE 5 MG TABLET (FP) PO SCH (09:32)
[2016-06-28] MEDS: MAGNESIUM OXIDE 400 MG TABLET (FP) PO SCH ×2 (09:32→21:42)
[2016-06-28] MEDS: POTASSIUM CHLORIDE TABS 20 MEQ TABLET.ER (FP) PO SCH (09:33)
[2016-06-28] MEDS: NYSTATIN/TRIAMCINOLONE TOPICAL CREAM 15 GM TUBE TP SCH ×2 (09:34→22:00)
[2016-06-28] MEDS: COLLAGENASE CLOSTRIDIUM HIST. 30 GRAMS TUBE TP SCH (09:34)
[2016-06-28] MEDS: ASCORBIC ACID 500 MG TABLET (FP) PO SCH (09:34)
[2016-06-28] MEDS: NEOMYCIN/POLYMYXIN/BACITRACIN (TRIPLE ANTIBIOTIC) 28 GM OINTMENT TP SCH ×2 (09:35→22:00)
[2016-06-28] MEDS: ACETAMINOPHEN 325 MG TABLET (FP) PO PRN (18:20)
[2016-06-28] MEDS: traZODone HCL 50 MG TABLET (FP) PO SCH (21:41)
[2016-06-28] MEDS: TAMSULOSIN HCL 0.4 MG CAP.ER.24H (FP) PO SCH (21:41)
[2016-06-28] MEDS: ATORVASTATIN CA 10 MG TABLET (FP) PO SCH (21:41)
[2016-06-29 07:51] LABS: BASOPHIL 0.4 % (0-2.0); EOSINOPHIL 3.9 % (0-4.5); MCH 28.1 pg (25.7-33.7); MCHC 32.8 g/dl (32.0-35.9); MEAN CELL VOLUME 85.9 fl (80-96); MEAN PLT VOLUME 8.3 fl (7.5-11.1); PLATELET COUNT 189 K/MM3 (134-434); RDW 18.3 % (11.9-15.9); WHITE BLOOD COUNT 7.2 K/mm3 (4.0-10.0)
[2016-06-29 08:40] LABS: ALBUMIN 1.9 g/dl (3.4-5.0); ALK PHOS 84 U/L (45-117); ANION GAP 6 (8-16); BILIRUBIN,TOTAL 0.5 mg/dL (0.2-1.0); CALCIUM 7.6 mg/dL (8.5-10.1); CO2 30 mmol/L (21-32); COCKROFT - GAULT 93.51; CREATININE 0.6 mg/dL (0.7-1.3); GLUCOSE,RANDOM 67 mg/dL (74-106); PHOSPHOROUS 2.7 mg/dL (2.5-4.9); SGOT/AST 26 U/L (15-37); SGPT/ALT 21 U/L (12-78); TOT PROT 4.8 g/dl (6.4-8.2)
[2016-06-29] MEDS ORDERED: PT OWN MED DRAWER 7, Y5N ONE (09:28)
[2016-06-29] MEDS: NAPH,MB-DB/K PH,MBDB POWDER PACKET PO SCH ×2 (09:31→22:24)
[2016-06-29] MEDS: MAGNESIUM OXIDE 400 MG TABLET (FP) PO SCH ×2 (09:31→22:23)
[2016-06-29] MEDS: FINASTERIDE 5 MG TABLET (FP) PO SCH (09:31)
[2016-06-29] MEDS: LACTOBACILLUS ACIDOPHILUS 1 EACH TAB (FP) PO SCH (09:31)
[2016-06-29] MEDS: ASCORBIC ACID 500 MG TABLET (FP) PO SCH (09:31)
[2016-06-29] MEDS: POTASSIUM CHLORIDE TABS 20 MEQ TABLET.ER (FP) PO SCH (09:31)
[2016-06-29] MEDS: PANTOPRAZOLE 40 MG TABLET (FP) PO SCH (09:31)
[2016-06-29] MEDS: METOPROLOL SUCCINATE 25 MG TAB.SR.24H (FP) PO SCH (09:31)
[2016-06-29] MEDS: NYSTATIN/TRIAMCINOLONE TOPICAL CREAM 15 GM TUBE TP SCH ×2 (09:32→22:24)
[2016-06-29] MEDS: COLLAGENASE CLOSTRIDIUM HIST. 30 GRAMS TUBE TP SCH (09:32)
[2016-06-29] MEDS: NEOMYCIN/POLYMYXIN/BACITRACIN (TRIPLE ANTIBIOTIC) 28 GM OINTMENT TP SCH ×2 (09:32→22:24)
--- NOTE | 2016-06-29 15:05 | PN ---
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, Physician Chief Complaint: patient sitting in chair. No complaints. Denies cp, sob, n/v. - Current Medication List Current Medications: Active Medications Acetaminophen (Tylenol -) 650 mg PO Q4H PRN PRN Reason: FEVER OR PAIN Last Admin: 06/28/16 18:20 Dose: 650 mg Ascorbic Acid (Vitamin C -) 500 mg PO DAILY [facility] Last Admin: 06/29/16 09:31 Dose: 500 mg Atorvastatin Calcium (Lipitor -) 10 mg PO HS [facility] Last Admin: 06/28/16 21:41 Dose: 10 mg Collagenase (Santyl -) 1 applic TP DAILY [facility] Last Admin: 06/29/16 09:32 Dose: 1 applic Finasteride (Proscar -) 5 mg PO DAILY [facility] Last Admin: 06/29/16 09:31 Dose: 5 mg Haloperidol (Haldol Injection (Fast Acting) -) 2 mg IM Q4H PRN PRN Reason: AGITATION Last Admin: 06/22/16 02:19 Dose: 2 mg Lactobacillus Acidophilus (Bacid -) 1 tab PO DAILY [facility] Last Admin: 06/29/16 09:31 Dose: 1 tab Magnesium Oxide (Mag-Ox -) 400 mg PO BID [facility] Last Admin: 06/29/16 09:31 Dose: 400 mg Metoprolol Succinate (Toprol Xl -) 25 mg PO DAILY [facility] Last Admin: 06/29/16 09:31 Dose: 25 mg Neomycin/Polymyxin/Bacitracin (Neosporin Topical Ointment -) 1 applic TP BID [facility] Last Admin: 06/29/16 09:32 Dose: 1 applic Nystatin/Triamcinolone Acetonide (Mycolog Ii Cream -) 1 applic TP BID [facility] Last Admin: 06/29/16 09:32 Dose: 1 applic Pantoprazole Sodium (Protonix -) 40 mg PO DAILY [facility] Last Admin: 06/29/16 09:31 Dose: 40 mg Potassium Chloride (K-Dur -) 20 meq PO DAILY [facility] Last Admin: 06/29/16 09:31 Dose: 20 meq Potassium Phos/Sodium Phos (Phos-Nak Packet -) 1 packet PO BID [facility] Last Admin: 06/29/16 09:31 Dose: 1 packet Tamsulosin HCl (Flomax -) 0.4 mg PO HS [facility] Last Admin: 06/28/16 21:41 Dose: 0.4 mg Trazodone HCl (Desyrel -) 37.5 mg PO HS [facility] Last Admin: 06/28/16 21:41 Dose: 37.5 mg - Objective Vital Signs: Vital Signs Temperature 98.8 F 06/29/16 14:42 Pulse Rate 70 06/29/16 14:42 Respiratory Rate 18 06/29/16 14:42 Blood Pressure 94/66 06/29/16 14:42 O2 Sat by Pulse Oximetry (%) 98 06/29/16 09:00 Constitutional: Yes: Well Nourished, No Distress, Calm Cardiovascular: Yes: Regular Rate and Rhythm. No: Gallop, Murmur, Rub Respiratory: Yes: Regular, CTA Bilaterally. No: Rales, Rhonchi, Wheezes Gastrointestinal: Yes: Normal Bowel Sounds, Soft. No: Distention, Tenderness Extremities: Yes: WNL Edema: No Labs: CBC, BMP 06/29/16 06:30 06/29/16 06:30 INR, PTT INR 1.18 (0.82-1.09) H 06/20/16 15:00 Problem List - Problems (1) Sepsis Code(s): A41.9 - SEPSIS, UNSPECIFIED ORGANISM Qualifiers: Sepsis type: sepsis due to unspecified organism Qualified Code(s): A41.9 - Sepsis, unspecified organism (2) UTI (urinary tract infection) Code(s): N39.0 - URINARY TRACT INFECTION, SITE NOT SPECIFIED Qualifiers: Urinary tract infection type: acute cystitis Hematuria presence: with hematuria Qualified Code(s): N30.01 - Acute cystitis with hematuria (3) Lactic acid acidosis Code(s): E87.2 - ACIDOSIS (4) Metabolic encephalopathy Code(s): G93.41 - METABOLIC ENCEPHALOPATHY (5) HTN (hypertension) Code(s): I10 - ESSENTIAL (PRIMARY) HYPERTENSION (6) Dementia Code(s): F03.90 - UNSPECIFIED DEMENTIA WITHOUT BEHAVIORAL DISTURBANCE Assessment/Plan (1) Sepsis Assessment/Plan: -finished full course antibiotics Code(s): A41.9 - SEPSIS, UNSPECIFIED ORGANISM Qualifiers: Sepsis type: sepsis due to unspecified organism Qualified Code(s): A41.9 - Sepsis, unspecified organism (2) UTI (urinary tract infection) Assessment/Plan: -finished full course antibiotics Code(s): N39.0 - URINARY TRACT INFECTION, SITE NOT SPECIFIED Qualifiers: Urinary tract infection type: acute cystitis Hematuria presence: with hematuria Qualified Code(s): N30.01 - Acute cystitis with hematuria (3) Lactic acid acidosis Assessment/Plan: -resolved Code(s): E87.2 - ACIDOSIS (4) Metabolic encephalopathy Assessment/Plan: -at baseline Code(s): G93.41 - METABOLIC ENCEPHALOPATHY (5) HTN (hypertension) Assessment/Plan: -continue toprol and amlodipine Code(s): I10 - ESSENTIAL (PRIMARY) HYPERTENSION (6) Dementia Assessment/Plan: -at baseline Code(s): F03.90 - UNSPECIFIED DEMENTIA WITHOUT BEHAVIORAL DISTURBANCE (7) Hypernatremia -resolved (8) Hypomagnesemia -q48h labs while here (9) FTT -continue ensure Dispo -patient medically stable for discharge -awaiting placement vs discharge home
--- NOTE | 2016-06-29 15:49 | PN ---
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, Physician History of Present Illness: no issues no new events awake and alert sitting in chair - Current Medication List Current Medications: Active Medications Acetaminophen (Tylenol -) 650 mg PO Q4H PRN PRN Reason: FEVER OR PAIN Last Admin: 06/28/16 18:20 Dose: 650 mg Ascorbic Acid (Vitamin C -) 500 mg PO DAILY [facility] Last Admin: 06/29/16 09:31 Dose: 500 mg Atorvastatin Calcium (Lipitor -) 10 mg PO HS [facility] Last Admin: 06/28/16 21:41 Dose: 10 mg Collagenase (Santyl -) 1 applic TP DAILY [facility] Last Admin: 06/29/16 09:32 Dose: 1 applic Finasteride (Proscar -) 5 mg PO DAILY [facility] Last Admin: 06/29/16 09:31 Dose: 5 mg Haloperidol (Haldol Injection (Fast Acting) -) 2 mg IM Q4H PRN PRN Reason: AGITATION Last Admin: 06/22/16 02:19 Dose: 2 mg Lactobacillus Acidophilus (Bacid -) 1 tab PO DAILY [facility] Last Admin: 06/29/16 09:31 Dose: 1 tab Magnesium Oxide (Mag-Ox -) 400 mg PO BID [facility] Last Admin: 06/29/16 09:31 Dose: 400 mg Metoprolol Succinate (Toprol Xl -) 25 mg PO DAILY [facility] Last Admin: 06/29/16 09:31 Dose: 25 mg Neomycin/Polymyxin/Bacitracin (Neosporin Topical Ointment -) 1 applic TP BID [facility] Last Admin: 06/29/16 09:32 Dose: 1 applic Nystatin/Triamcinolone Acetonide (Mycolog Ii Cream -) 1 applic TP BID [facility] Last Admin: 06/29/16 09:32 Dose: 1 applic Pantoprazole Sodium (Protonix -) 40 mg PO DAILY [facility] Last Admin: 06/29/16 09:31 Dose: 40 mg Potassium Chloride (K-Dur -) 20 meq PO DAILY [facility] Last Admin: 06/29/16 09:31 Dose: 20 meq Potassium Phos/Sodium Phos (Phos-Nak Packet -) 1 packet PO BID [facility] Last Admin: 06/29/16 09:31 Dose: 1 packet Tamsulosin HCl (Flomax -) 0.4 mg PO HS [facility] Last Admin: 06/28/16 21:41 Dose: 0.4 mg Trazodone HCl (Desyrel -) 37.5 mg PO HS [facility] Last Admin: 06/28/16 21:41 Dose: 37.5 mg - Objective Vital Signs: Vital Signs Temperature 98.8 F 06/29/16 14:42 Pulse Rate 70 06/29/16 14:42 Respiratory Rate 18 06/29/16 14:42 Blood Pressure 94/66 06/29/16 14:42 O2 Sat by Pulse Oximetry (%) 98 06/29/16 09:00 Constitutional: Yes: No Distress, Calm Cardiovascular: Yes: S1, S2 Respiratory: Yes: Regular, CTA Bilaterally Gastrointestinal: Yes: Normal Bowel Sounds, Soft Genitourinary: Yes: [place] Present Musculoskeletal: Yes: Other Extremities: Yes: Other Neurological: Yes: Alert Psychiatric: Yes: Alert Labs: CBC, BMP 06/29/16 06:30 06/29/16 06:30 INR, PTT INR 1.18 (0.82-1.09) H 06/20/16 15:00 Assessment/Plan Problem List - Problems (1) Sepsis Code(s): A41.9 - SEPSIS, UNSPECIFIED ORGANISM Qualifiers: Sepsis type: sepsis due to unspecified organism Qualified Code(s): A41.9 - Sepsis, unspecified organism (2) UTI (urinary tract infection) Code(s): N39.0 - URINARY TRACT INFECTION, SITE NOT SPECIFIED Qualifiers: Urinary tract infection type: acute cystitis Hematuria presence: with hematuria Qualified Code(s): N30.01 - Acute cystitis with hematuria (3) Lactic acid acidosis Code(s): E87.2 - ACIDOSIS (4) Metabolic encephalopathy Code(s): G93.41 - METABOLIC ENCEPHALOPATHY (5) HTN (hypertension) Code(s): I10 - ESSENTIAL (PRIMARY) HYPERTENSION (6) Dementia Code(s): F03.90 - UNSPECIFIED DEMENTIA WITHOUT BEHAVIORAL DISTURBANCE 7 gram positive bacteremia plan continue current mgmt rest as per primary team
[2016-06-29] MEDS: ATORVASTATIN CA 10 MG TABLET (FP) PO SCH (22:23)
[2016-06-29] MEDS: TAMSULOSIN HCL 0.4 MG CAP.ER.24H (FP) PO SCH (22:23)
[2016-06-29] MEDS: traZODone HCL 50 MG TABLET (FP) PO SCH (22:24)
--- NOTE | 2016-06-30 09:08 | PN ---
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, Physician History of Present Illness: doing well no new issues - Current Medication List Current Medications: Active Medications Acetaminophen (Tylenol -) 650 mg PO Q4H PRN PRN Reason: FEVER OR PAIN Last Admin: 06/28/16 18:20 Dose: 650 mg Ascorbic Acid (Vitamin C -) 500 mg PO DAILY [facility] Last Admin: 06/29/16 09:31 Dose: 500 mg Atorvastatin Calcium (Lipitor -) 10 mg PO HS [facility] Last Admin: 06/29/16 22:23 Dose: 10 mg Collagenase (Santyl -) 1 applic TP DAILY [facility] Last Admin: 06/29/16 09:32 Dose: 1 applic Finasteride (Proscar -) 5 mg PO DAILY [facility] Last Admin: 06/29/16 09:31 Dose: 5 mg Haloperidol (Haldol Injection (Fast Acting) -) 2 mg IM Q4H PRN PRN Reason: AGITATION Last Admin: 06/22/16 02:19 Dose: 2 mg Lactobacillus Acidophilus (Bacid -) 1 tab PO DAILY [facility] Last Admin: 06/29/16 09:31 Dose: 1 tab Magnesium Oxide (Mag-Ox -) 400 mg PO BID [facility] Last Admin: 06/29/16 22:23 Dose: 400 mg Metoprolol Succinate (Toprol Xl -) 25 mg PO DAILY [facility] Last Admin: 06/29/16 09:31 Dose: 25 mg Neomycin/Polymyxin/Bacitracin (Neosporin Topical Ointment -) 1 applic TP BID [facility] Last Admin: 06/29/16 22:24 Dose: 1 applic Nystatin/Triamcinolone Acetonide (Mycolog Ii Cream -) 1 applic TP BID [facility] Last Admin: 06/29/16 22:24 Dose: 1 applic Pantoprazole Sodium (Protonix -) 40 mg PO DAILY [facility] Last Admin: 06/29/16 09:31 Dose: 40 mg Potassium Chloride (K-Dur -) 20 meq PO DAILY [facility] Last Admin: 06/29/16 09:31 Dose: 20 meq Potassium Phos/Sodium Phos (Phos-Nak Packet -) 1 packet PO BID [facility] Last Admin: 06/29/16 22:24 Dose: 1 packet Tamsulosin HCl (Flomax -) 0.4 mg PO [facility] Last Admin: 06/29/16 22:23 Dose: 0.4 mg Trazodone HCl (Desyrel -) 37.5 mg PO [facility] Last Admin: 06/29/16 22:24 Dose: 37.5 mg - Objective Vital Signs: Vital Signs Temperature 98.0 F 06/30/16 06:00 Pulse Rate 71 06/30/16 06:00 Respiratory Rate 18 06/30/16 06:00 Blood Pressure 134/64 06/30/16 06:00 O2 Sat by Pulse Oximetry (%) 98 06/29/16 21:00 Constitutional: Yes: No Distress, Calm Cardiovascular: Yes: S1, S2 Respiratory: Yes: Regular, CTA Bilaterally Gastrointestinal: Yes: Normal Bowel Sounds, Soft Musculoskeletal: Yes: Other Extremities: Yes: WNL Neurological: Yes: Alert, Other Psychiatric: Yes: Alert, Other Labs: CBC, BMP 06/29/16 06:30 06/29/16 06:30 INR, PTT INR 1.18 (0.82-1.09) H 06/20/16 15:00 Assessment/Plan Problem List - Problems (1) Sepsis Code(s): A41.9 - SEPSIS, UNSPECIFIED ORGANISM Qualifiers: Sepsis type: sepsis due to unspecified organism Qualified Code(s): A41.9 - Sepsis, unspecified organism (2) UTI (urinary tract infection) Code(s): N39.0 - URINARY TRACT INFECTION, SITE NOT SPECIFIED Qualifiers: Urinary tract infection type: acute cystitis Hematuria presence: with hematuria Qualified Code(s): N30.01 - Acute cystitis with hematuria (3) Lactic acid acidosis Code(s): E87.2 - ACIDOSIS (4) Metabolic encephalopathy Code(s): G93.41 - METABOLIC ENCEPHALOPATHY (5) HTN (hypertension) Code(s): I10 - ESSENTIAL (PRIMARY) HYPERTENSION (6) Dementia Code(s): F03.90 - UNSPECIFIED DEMENTIA WITHOUT BEHAVIORAL DISTURBANCE 7 gram positive bacteremia plan continue current mgmt rest as per primary team
[2016-06-30] MEDS: PANTOPRAZOLE 40 MG TABLET (FP) PO SCH (10:01)
[2016-06-30] MEDS: ASCORBIC ACID 500 MG TABLET (FP) PO SCH (10:04)
[2016-06-30] MEDS: LACTOBACILLUS ACIDOPHILUS 1 EACH TAB (FP) PO SCH (10:04)
[2016-06-30] MEDS: NAPH,MB-DB/K PH,MBDB POWDER PACKET PO SCH ×2 (10:05→21:43)
[2016-06-30] MEDS: METOPROLOL SUCCINATE 25 MG TAB.SR.24H (FP) PO SCH (10:05)
[2016-06-30] MEDS: FINASTERIDE 5 MG TABLET (FP) PO SCH (10:05)
[2016-06-30] MEDS: MAGNESIUM OXIDE 400 MG TABLET (FP) PO SCH ×2 (10:05→21:42)
[2016-06-30] MEDS: POTASSIUM CHLORIDE TABS 20 MEQ TABLET.ER (FP) PO SCH (10:05)
[2016-06-30] MEDS: NEOMYCIN/POLYMYXIN/BACITRACIN (TRIPLE ANTIBIOTIC) 28 GM OINTMENT TP SCH ×2 (10:11→21:43)
[2016-06-30] MEDS: NYSTATIN/TRIAMCINOLONE TOPICAL CREAM 15 GM TUBE TP SCH ×2 (12:30→21:43)
--- NOTE | 2016-06-30 14:26 | PN ---
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, Physician Chief Complaint: Patient lying in bed. Says feels fine. No cp, sob, n/v. - Current Medication List Current Medications: Active Medications Acetaminophen (Tylenol -) 650 mg PO Q4H PRN PRN Reason: FEVER OR PAIN Last Admin: 06/28/16 18:20 Dose: 650 mg Ascorbic Acid (Vitamin C -) 500 mg PO DAILY [facility] Last Admin: 06/30/16 10:04 Dose: 500 mg Atorvastatin Calcium (Lipitor -) 10 mg PO HS [facility] Last Admin: 06/29/16 22:23 Dose: 10 mg Collagenase (Santyl -) 1 applic TP DAILY [facility] Last Admin: 06/29/16 09:32 Dose: 1 applic Dronabinol (Marinol -) 2.5 mg PO BID [facility] Finasteride (Proscar -) 5 mg PO DAILY [facility] Last Admin: 06/30/16 10:05 Dose: 5 mg Haloperidol (Haldol Injection (Fast Acting) -) 2 mg IM Q4H PRN PRN Reason: AGITATION Last Admin: 06/22/16 02:19 Dose: 2 mg Lactobacillus Acidophilus (Bacid -) 1 tab PO DAILY [facility] Last Admin: 06/30/16 10:04 Dose: 1 tab Magnesium Oxide (Mag-Ox -) 400 mg PO BID [facility] Last Admin: 06/30/16 10:05 Dose: 400 mg Metoprolol Succinate (Toprol Xl -) 25 mg PO DAILY [facility] Last Admin: 06/30/16 10:05 Dose: Not Given Neomycin/Polymyxin/Bacitracin (Neosporin Topical Ointment -) 1 applic TP BID [facility] Last Admin: 06/30/16 10:11 Dose: 1 applic Nystatin/Triamcinolone Acetonide (Mycolog Ii Cream -) 1 applic TP BID [facility] Last Admin: 06/29/16 22:24 Dose: 1 applic Pantoprazole Sodium (Protonix -) 40 mg PO DAILY [facility] Last Admin: 06/30/16 10:01 Dose: 40 mg Potassium Chloride (K-Dur -) 20 meq PO DAILY [facility] Last Admin: 06/30/16 10:05 Dose: 20 meq Potassium Phos/Sodium Phos (Phos-Nak Packet -) 1 packet PO BID [facility] Last Admin: 06/30/16 10:05 Dose: 1 packet Tamsulosin HCl (Flomax -) 0.4 mg PO HS [facility] Last Admin: 06/29/16 22:23 Dose: 0.4 mg Trazodone HCl (Desyrel -) 37.5 mg PO [facility] Last Admin: 06/29/16 22:24 Dose: 37.5 mg - Objective Vital Signs: Vital Signs Temperature 98.2 F 06/30/16 14:13 Pulse Rate 65 06/30/16 14:13 Respiratory Rate 16 06/30/16 14:13 Blood Pressure 100/91 06/30/16 14:13 O2 Sat by Pulse Oximetry (%) 98 06/29/16 21:00 Constitutional: Yes: Well Nourished, No Distress, Calm Cardiovascular: Yes: Regular Rate and Rhythm. No: Gallop, Murmur, Rub Respiratory: Yes: Regular, CTA Bilaterally. No: Rales, Rhonchi, Wheezes Gastrointestinal: Yes: Normal Bowel Sounds, Soft. No: Distention, Tenderness Extremities: Yes: WNL Edema: No Labs: CBC, BMP 06/29/16 06:30 06/29/16 06:30 INR, PTT INR 1.18 (0.82-1.09) H 06/20/16 15:00 Problem List - Problems (1) Sepsis Code(s): A41.9 - SEPSIS, UNSPECIFIED ORGANISM Qualifiers: Sepsis type: sepsis due to unspecified organism Qualified Code(s): A41.9 - Sepsis, unspecified organism (2) UTI (urinary tract infection) Code(s): N39.0 - URINARY TRACT INFECTION, SITE NOT SPECIFIED Qualifiers: Urinary tract infection type: acute cystitis Hematuria presence: with hematuria Qualified Code(s): N30.01 - Acute cystitis with hematuria (3) Lactic acid acidosis Code(s): E87.2 - ACIDOSIS (4) Metabolic encephalopathy Code(s): G93.41 - METABOLIC ENCEPHALOPATHY (5) HTN (hypertension) Code(s): I10 - ESSENTIAL (PRIMARY) HYPERTENSION (6) Dementia Code(s): F03.90 - UNSPECIFIED DEMENTIA WITHOUT BEHAVIORAL DISTURBANCE Assessment/Plan (1) Sepsis Code(s): A41.9 - SEPSIS, UNSPECIFIED ORGANISM Qualifiers: Sepsis type: sepsis due to unspecified organism Qualified Code(s): A41.9 - Sepsis, unspecified organism (2) UTI (urinary tract infection) Code(s): N39.0 - URINARY TRACT INFECTION, SITE NOT SPECIFIED Qualifiers: Urinary tract infection type: acute cystitis Hematuria presence: with hematuria Qualified Code(s): N30.01 - Acute cystitis with hematuria (3) Lactic acid acidosis Code(s): E87.2 - ACIDOSIS (4) Metabolic encephalopathy Code(s): G93.41 - METABOLIC ENCEPHALOPATHY (5) HTN (hypertension) Code(s): I10 - ESSENTIAL (PRIMARY) HYPERTENSION (6) Dementia Code(s): F03.90 - UNSPECIFIED DEMENTIA WITHOUT BEHAVIORAL DISTURBANCE Plan -continue current management -patient medically stable for discharge -awaiting placement
[2016-06-30] MEDS: COLLAGENASE CLOSTRIDIUM HIST. 30 GRAMS TUBE TP SCH (14:28)
[2016-06-30] MEDS: TAMSULOSIN HCL 0.4 MG CAP.ER.24H (FP) PO SCH (21:42)
[2016-06-30] MEDS: DRONABINOL 2.5 MG CAPSULE PO SCH (21:42)
[2016-06-30] MEDS: traZODone HCL 50 MG TABLET (FP) PO SCH (21:42)
[2016-06-30] MEDS: ATORVASTATIN CA 10 MG TABLET (FP) PO SCH (21:42)
[2016-07-01 07:57] LABS: BASOPHIL 0.6 % (0-2.0); EOSINOPHIL 3.1 % (0-4.5); MCH 27.8 pg (25.7-33.7); MCHC 32.1 g/dl (32.0-35.9); MEAN CELL VOLUME 86.6 fl (80-96); MEAN PLT VOLUME 8.3 fl (7.5-11.1); NEUTROPHILS 65.4 % (42.8-82.8); PLATELET COUNT 200 K/MM3 (134-434); RDW 19.1 % (11.9-15.9); WHITE BLOOD COUNT 6.2 K/mm3 (4.0-10.0)
[2016-07-01 08:22] LABS: CALCIUM 8.1 mg/dL (8.5-10.1)
[2016-07-01 08:24] LABS: COCKROFT - GAULT 112.21; CREATININE 0.5 mg/dL (0.7-1.3); PHOSPHOROUS 3.4 mg/dL (2.5-4.9)
[2016-07-01] MEDS: COLLAGENASE CLOSTRIDIUM HIST. 30 GRAMS TUBE TP SCH (11:00)
[2016-07-01] MEDS: NYSTATIN/TRIAMCINOLONE TOPICAL CREAM 15 GM TUBE TP SCH ×2 (11:00→21:36)
--- NOTE | 2016-07-01 11:37 | PN ---
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, Physician Chief Complaint: Unable to obtain - Current Medication List Current Medications: Active Medications Acetaminophen (Tylenol -) 650 mg PO Q4H PRN PRN Reason: FEVER OR PAIN Last Admin: 06/28/16 18:20 Dose: 650 mg Ascorbic Acid (Vitamin C -) 500 mg PO DAILY [facility] Last Admin: 06/30/16 10:04 Dose: 500 mg Atorvastatin Calcium (Lipitor -) 10 mg PO HS [facility] Last Admin: 06/30/16 21:42 Dose: 10 mg Collagenase (Santyl -) 1 applic TP DAILY [facility] Last Admin: 06/30/16 14:28 Dose: 1 applic Dronabinol (Marinol -) 2.5 mg PO BID [facility] Last Admin: 06/30/16 21:42 Dose: 2.5 mg Finasteride (Proscar -) 5 mg PO DAILY [facility] Last Admin: 06/30/16 10:05 Dose: 5 mg Haloperidol (Haldol Injection (Fast Acting) -) 2 mg IM Q4H PRN PRN Reason: AGITATION Last Admin: 06/22/16 02:19 Dose: 2 mg Lactobacillus Acidophilus (Bacid -) 1 tab PO DAILY [facility] Last Admin: 06/30/16 10:04 Dose: 1 tab Magnesium Oxide (Mag-Ox -) 400 mg PO BID [facility] Last Admin: 06/30/16 21:42 Dose: 400 mg Metoprolol Succinate (Toprol Xl -) 25 mg PO DAILY [facility] Last Admin: 06/30/16 10:05 Dose: Not Given Neomycin/Polymyxin/Bacitracin (Neosporin Topical Ointment -) 1 applic TP BID [facility] Last Admin: 06/30/16 21:43 Dose: 1 applic Nystatin/Triamcinolone Acetonide (Mycolog Ii Cream -) 1 applic TP BID [facility] Last Admin: 06/30/16 21:43 Dose: 1 applic Pantoprazole Sodium (Protonix -) 40 mg PO DAILY [facility] Last Admin: 06/30/16 10:01 Dose: 40 mg Potassium Chloride (K-Dur -) 20 meq PO DAILY [facility] Last Admin: 06/30/16 10:05 Dose: 20 meq Potassium Phos/Sodium Phos (Phos-Nak Packet -) 1 packet PO BID [facility] Last Admin: 06/30/16 21:43 Dose: 1 packet Tamsulosin HCl (Flomax -) 0.4 mg PO HS [facility] Last Admin: 06/30/16 21:42 Dose: 0.4 mg Trazodone HCl (Desyrel -) 37.5 mg PO [facility] Last Admin: 06/30/16 21:42 Dose: 37.5 mg - Objective Vital Signs: Vital Signs Temperature 97.4 F L 07/01/16 07:00 Pulse Rate 86 07/01/16 07:00 Respiratory Rate 20 07/01/16 07:00 Blood Pressure 151/93 07/01/16 07:00 O2 Sat by Pulse Oximetry (%) 98 06/30/16 21:00 Constitutional: Yes: Well Nourished, No Distress, Calm Cardiovascular: Yes: Regular Rate and Rhythm. No: Gallop, Murmur, Rub Respiratory: Yes: Regular, CTA Bilaterally. No: Rales, Rhonchi, Wheezes Gastrointestinal: Yes: Normal Bowel Sounds, Soft. No: Distention, Tenderness Extremities: Yes: WNL Edema: No Labs: CBC, BMP 07/01/16 06:00 07/01/16 06:00 INR, PTT INR 1.18 (0.82-1.09) H 06/20/16 15:00 Problem List - Problems (1) Sepsis Code(s): A41.9 - SEPSIS, UNSPECIFIED ORGANISM Qualifiers: Sepsis type: sepsis due to unspecified organism Qualified Code(s): A41.9 - Sepsis, unspecified organism (2) UTI (urinary tract infection) Code(s): N39.0 - URINARY TRACT INFECTION, SITE NOT SPECIFIED Qualifiers: Urinary tract infection type: acute cystitis Hematuria presence: with hematuria Qualified Code(s): N30.01 - Acute cystitis with hematuria (3) Lactic acid acidosis Code(s): E87.2 - ACIDOSIS (4) Metabolic encephalopathy Code(s): G93.41 - METABOLIC ENCEPHALOPATHY (5) HTN (hypertension) Code(s): I10 - ESSENTIAL (PRIMARY) HYPERTENSION (6) Dementia Code(s): F03.90 - UNSPECIFIED DEMENTIA WITHOUT BEHAVIORAL DISTURBANCE Assessment/Plan (1) Sepsis Code(s): A41.9 - SEPSIS, UNSPECIFIED ORGANISM Qualifiers: Sepsis type: sepsis due to unspecified organism Qualified Code(s): A41.9 - Sepsis, unspecified organism (2) UTI (urinary tract infection) Code(s): N39.0 - URINARY TRACT INFECTION, SITE NOT SPECIFIED Qualifiers: Urinary tract infection type: acute cystitis Hematuria presence: with hematuria Qualified Code(s): N30.01 - Acute cystitis with hematuria (3) Lactic acid acidosis Code(s): E87.2 - ACIDOSIS (4) Metabolic encephalopathy Code(s): G93.41 - METABOLIC ENCEPHALOPATHY (5) HTN (hypertension) Code(s): I10 - ESSENTIAL (PRIMARY) HYPERTENSION (6) Dementia Code(s): F03.90 - UNSPECIFIED DEMENTIA WITHOUT BEHAVIORAL DISTURBANCE Plan -continue current management -patient medically stable for discharge -awaiting placement
[2016-07-01] MEDS: METOPROLOL SUCCINATE 25 MG TAB.SR.24H (FP) PO SCH (12:13)
[2016-07-01] MEDS: MAGNESIUM OXIDE 400 MG TABLET (FP) PO SCH ×2 (12:13→21:32)
[2016-07-01] MEDS: ASCORBIC ACID 500 MG TABLET (FP) PO SCH (12:13)
[2016-07-01] MEDS: DRONABINOL 2.5 MG CAPSULE PO SCH ×2 (12:14→21:33)
[2016-07-01] MEDS: FINASTERIDE 5 MG TABLET (FP) PO SCH (12:14)
[2016-07-01] MEDS: LACTOBACILLUS ACIDOPHILUS 1 EACH TAB (FP) PO SCH (12:15)
[2016-07-01] MEDS: NEOMYCIN/POLYMYXIN/BACITRACIN (TRIPLE ANTIBIOTIC) 28 GM OINTMENT TP SCH ×2 (12:15→21:36)
[2016-07-01] MEDS: NAPH,MB-DB/K PH,MBDB POWDER PACKET PO SCH ×2 (12:15→21:33)
[2016-07-01] MEDS: PANTOPRAZOLE 40 MG TABLET (FP) PO SCH (12:16)
[2016-07-01] MEDS: POTASSIUM CHLORIDE TABS 20 MEQ TABLET.ER (FP) PO SCH (12:17)
--- NOTE | 2016-07-01 12:18 | PN ---
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 (short form) - Note 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: s: awake, denies any pain but unclear how much he understands, appears comfortable, no overnight events o: Vital Signs Period Temp Pulse Resp BP Sys/Kerr Pulse Ox Last 24 Hr 97.4 F-98.7 F 65-86 16-20 100-151/76-93 98 awake, nad, cachectic jvd flat, neck supple ctabl, poor effort rrr, nl s1, s2 no mrg ext without e/c/c alert but not non-verbal no jaundice, diaphoresis Current Medications Generic Name Dose Route Start Last Admin Trade Name Freq PRN Reason Stop Dose Admin Acetaminophen 650 mg 06/12/16 10:27 06/28/16 18:20 Tylenol - PO 650 mg Q4H PRN Administration FEVER OR PAIN Ascorbic Acid 500 mg 06/11/16 10:00 07/01/16 12:13 Vitamin C - PO 500 mg DAILY [facility] Administration Atorvastatin Calcium 10 mg 06/10/16 22:00 06/30/16 21:42 Lipitor - PO 10 mg HS [facility] Administration Collagenase 1 applic 06/11/16 10:00 06/30/16 14:28 Santyl - TP 1 applic DAILY [facility] Administration Dronabinol 2.5 mg 06/30/16 22:00 07/01/16 12:14 Marinol - PO 2.5 mg BID [facility] Administration Finasteride 5 mg 06/11/16 10:00 07/01/16 12:14 Proscar - PO 5 mg DAILY [facility] Administration Haloperidol 2 mg 06/10/16 12:29 06/22/16 02:19 Haldol Injection (Fast Acting) - IM 2 mg Q4H PRN Administration AGITATION Lactobacillus Acidophilus 1 tab 06/11/16 10:00 07/01/16 12:15 Bacid - PO 1 tab DAILY [facility] Administration Magnesium Oxide 400 mg 06/16/16 12:30 07/01/16 12:13 Mag-Ox - PO 400 mg BID [facility] Administration Metoprolol Succinate 25 mg 06/10/16 19:12 07/01/16 12:13 Toprol Xl - PO 25 mg DAILY [facility] Administration Neomycin/Polymyxin/Bacitracin 1 applic 06/27/16 22:00 07/01/16 12:15 Neosporin Topical Ointment - TP 1 applic BID [facility] Administration Nystatin/Triamcinolone Acetonide 1 applic 06/19/16 22:00 06/30/16 21:43 Mycolog Ii Cream - TP 1 applic BID [facility] Administration Pantoprazole Sodium 40 mg 06/11/16 10:00 07/01/16 12:16 Protonix - PO 40 mg DAILY [facility] Administration Potassium Chloride 20 meq 06/27/16 10:00 07/01/16 12:17 K-Dur - PO 20 meq DAILY [facility] Administration Potassium Phos/Sodium Phos 1 packet 06/16/16 12:30 07/01/16 12:15 Phos-Nak Packet - PO 1 packet BID [facility] Administration Tamsulosin HCl 0.4 mg 06/10/16 22:00 06/30/16 21:42 Flomax - PO 0.4 mg HS [facility] Administration Trazodone HCl 37.5 mg 06/10/16 22:00 06/30/16 21:42 Desyrel - PO 37.5 mg HS [facility] Administration CBC, BMP 07/01/16 06:00 07/01/16 06:00 EKG 06/10 12:21: uninterpretable due to baseline artifact EKG 06/10 14:46 Poor quality/baseline. Sinus tach with diffuse ST abnormalities. anterior ST sagging. possible inferior q waves. low limb voltages. abd CT: fecal retention, sacral decub with surrounding subcut air/abscess a/p: 80 yo with h/o htn, bph, advanced dementia who sent to ER for hematuria and noted to have UTI with sepsis complicated by elevated cardiac enzymes. positive trops: - borderline trop elevation with flat trend and low ck index, not consistent with acs, likely related to likely demand in setting of infection and tachycardia. - started low dose atorvastatin - cont metoprolol - not on asa due to hematuria, consider as outpt - echo done here this admit was non-diagnostic due to pt agitation/lack of cooperation htn - remains stable/controlled on bb sepsis/uti/hematuria - mgm't per pmd/urology/ID
--- NOTE | 2016-07-01 12:20 | PN ---
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, Physician History of Present Illness: no new issues patient stable - Current Medication List Current Medications: Active Medications Acetaminophen (Tylenol -) 650 mg PO Q4H PRN PRN Reason: FEVER OR PAIN Last Admin: 06/28/16 18:20 Dose: 650 mg Ascorbic Acid (Vitamin C -) 500 mg PO DAILY [facility] Last Admin: 07/01/16 12:13 Dose: 500 mg Atorvastatin Calcium (Lipitor -) 10 mg PO HS [facility] Last Admin: 06/30/16 21:42 Dose: 10 mg Collagenase (Santyl -) 1 applic TP DAILY [facility] Last Admin: 06/30/16 14:28 Dose: 1 applic Dronabinol (Marinol -) 2.5 mg PO BID [facility] Last Admin: 07/01/16 12:14 Dose: 2.5 mg Finasteride (Proscar -) 5 mg PO DAILY [facility] Last Admin: 07/01/16 12:14 Dose: 5 mg Haloperidol (Haldol Injection (Fast Acting) -) 2 mg IM Q4H PRN PRN Reason: AGITATION Last Admin: 06/22/16 02:19 Dose: 2 mg Lactobacillus Acidophilus (Bacid -) 1 tab PO DAILY [facility] Last Admin: 07/01/16 12:15 Dose: 1 tab Magnesium Oxide (Mag-Ox -) 400 mg PO BID [facility] Last Admin: 07/01/16 12:13 Dose: 400 mg Metoprolol Succinate (Toprol Xl -) 25 mg PO DAILY [facility] Last Admin: 07/01/16 12:13 Dose: 25 mg Neomycin/Polymyxin/Bacitracin (Neosporin Topical Ointment -) 1 applic TP BID [facility] Last Admin: 07/01/16 12:15 Dose: 1 applic Nystatin/Triamcinolone Acetonide (Mycolog Ii Cream -) 1 applic TP BID [facility] Last Admin: 06/30/16 21:43 Dose: 1 applic Pantoprazole Sodium (Protonix -) 40 mg PO DAILY [facility] Last Admin: 07/01/16 12:16 Dose: 40 mg Potassium Chloride (K-Dur -) 20 meq PO DAILY [facility] Last Admin: 07/01/16 12:17 Dose: 20 meq Potassium Phos/Sodium Phos (Phos-Nak Packet -) 1 packet PO BID [facility] Last Admin: 07/01/16 12:15 Dose: 1 packet Tamsulosin HCl (Flomax -) 0.4 mg PO HS [facility] Last Admin: 06/30/16 21:42 Dose: 0.4 mg Trazodone HCl (Desyrel -) 37.5 mg PO [facility] Last Admin: 06/30/16 21:42 Dose: 37.5 mg - Objective Vital Signs: Vital Signs Temperature 97.4 F L 07/01/16 07:00 Pulse Rate 86 07/01/16 07:00 Respiratory Rate 20 07/01/16 07:00 Blood Pressure 151/93 07/01/16 07:00 O2 Sat by Pulse Oximetry (%) 98 06/30/16 21:00 Constitutional: Yes: No Distress, Calm Cardiovascular: Yes: S1, S2 Respiratory: Yes: Regular, CTA Bilaterally Gastrointestinal: Yes: Normal Bowel Sounds, Soft Genitourinary: Yes: [place] Present Musculoskeletal: Yes: WNL Extremities: Yes: WNL Neurological: Yes: Alert, Oriented Psychiatric: Yes: Alert, Oriented Labs: CBC, BMP 07/01/16 06:00 07/01/16 06:00 INR, PTT INR 1.18 (0.82-1.09) H 06/20/16 15:00 Assessment/Plan Problem List - Problems (1) Sepsis Code(s): A41.9 - SEPSIS, UNSPECIFIED ORGANISM Qualifiers: Sepsis type: sepsis due to unspecified organism Qualified Code(s): A41.9 - Sepsis, unspecified organism (2) UTI (urinary tract infection) Code(s): N39.0 - URINARY TRACT INFECTION, SITE NOT SPECIFIED Qualifiers: Urinary tract infection type: acute cystitis Hematuria presence: with hematuria Qualified Code(s): N30.01 - Acute cystitis with hematuria (3) Lactic acid acidosis Code(s): E87.2 - ACIDOSIS (4) Metabolic encephalopathy Code(s): G93.41 - METABOLIC ENCEPHALOPATHY (5) HTN (hypertension) Code(s): I10 - ESSENTIAL (PRIMARY) HYPERTENSION (6) Dementia Code(s): F03.90 - UNSPECIFIED DEMENTIA WITHOUT BEHAVIORAL DISTURBANCE 7 gram positive bacteremia plan continue current mgmt rest as per primary team
[2016-07-01] MEDS: TAMSULOSIN HCL 0.4 MG CAP.ER.24H (FP) PO SCH (21:31)
[2016-07-01] MEDS: traZODone HCL 50 MG TABLET (FP) PO SCH (21:31)
[2016-07-01] MEDS: ATORVASTATIN CA 10 MG TABLET (FP) PO SCH (21:32)
[2016-07-02] MEDS: LACTOBACILLUS ACIDOPHILUS 1 EACH TAB (FP) PO SCH (09:13)
[2016-07-02] MEDS: FINASTERIDE 5 MG TABLET (FP) PO SCH (09:14)
[2016-07-02] MEDS: MAGNESIUM OXIDE 400 MG TABLET (FP) PO SCH ×2 (09:14→21:07)
[2016-07-02] MEDS: DRONABINOL 2.5 MG CAPSULE PO SCH ×2 (09:14→21:09)
[2016-07-02] MEDS: METOPROLOL SUCCINATE 25 MG TAB.SR.24H (FP) PO SCH (09:14)
[2016-07-02] MEDS: ASCORBIC ACID 500 MG TABLET (FP) PO SCH (09:14)
[2016-07-02] MEDS: PANTOPRAZOLE 40 MG TABLET (FP) PO SCH (09:14)
[2016-07-02] MEDS: NAPH,MB-DB/K PH,MBDB POWDER PACKET PO SCH ×2 (09:15→21:08)
[2016-07-02] MEDS: COLLAGENASE CLOSTRIDIUM HIST. 30 GRAMS TUBE TP SCH (09:15)
[2016-07-02] MEDS: POTASSIUM CHLORIDE TABS 20 MEQ TABLET.ER (FP) PO SCH (09:16)
[2016-07-02] MEDS: NEOMYCIN/POLYMYXIN/BACITRACIN (TRIPLE ANTIBIOTIC) 28 GM OINTMENT TP SCH ×2 (09:16→21:10)
[2016-07-02] MEDS: NYSTATIN/TRIAMCINOLONE TOPICAL CREAM 15 GM TUBE TP SCH ×2 (09:16→21:09)
--- NOTE | 2016-07-02 13:23 | PN ---
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 - Current Medication List Current Medications: Active Medications Acetaminophen (Tylenol -) 650 mg PO Q4H PRN PRN Reason: FEVER OR PAIN Last Admin: 06/28/16 18:20 Dose: 650 mg Ascorbic Acid (Vitamin C -) 500 mg PO DAILY [facility] Last Admin: 07/02/16 09:14 Dose: 500 mg Atorvastatin Calcium (Lipitor -) 10 mg PO HS [facility] Last Admin: 07/01/16 21:32 Dose: 10 mg Collagenase (Santyl -) 1 applic TP DAILY [facility] Last Admin: 07/02/16 09:15 Dose: 1 applic Dronabinol (Marinol -) 2.5 mg PO BID [facility] Last Admin: 07/02/16 09:14 Dose: 2.5 mg Finasteride (Proscar -) 5 mg PO DAILY [facility] Last Admin: 07/02/16 09:14 Dose: 5 mg Haloperidol (Haldol Injection (Fast Acting) -) 2 mg IM Q4H PRN PRN Reason: AGITATION Last Admin: 06/22/16 02:19 Dose: 2 mg Lactobacillus Acidophilus (Bacid -) 1 tab PO DAILY [facility] Last Admin: 07/02/16 09:13 Dose: 1 tab Magnesium Oxide (Mag-Ox -) 400 mg PO BID [facility] Last Admin: 07/02/16 09:14 Dose: 400 mg Metoprolol Succinate (Toprol Xl -) 25 mg PO DAILY [facility] Last Admin: 07/02/16 09:14 Dose: 25 mg Neomycin/Polymyxin/Bacitracin (Neosporin Topical Ointment -) 1 applic TP BID [facility] Last Admin: 07/02/16 09:16 Dose: 1 applic Nystatin/Triamcinolone Acetonide (Mycolog Ii Cream -) 1 applic TP BID [facility] Last Admin: 07/02/16 09:16 Dose: 1 applic Pantoprazole Sodium (Protonix -) 40 mg PO DAILY [facility] Last Admin: 07/02/16 09:14 Dose: 40 mg Potassium Chloride (K-Dur -) 20 meq PO DAILY [facility] Last Admin: 07/02/16 09:16 Dose: 20 meq Potassium Phos/Sodium Phos (Phos-Nak Packet -) 1 packet PO BID [facility] Last Admin: 07/02/16 09:15 Dose: 1 packet Tamsulosin HCl (Flomax -) 0.4 mg PO [facility] Last Admin: 07/01/16 21:31 Dose: 0.4 mg Trazodone HCl (Desyrel -) 37.5 mg PO [facility] Last Admin: 07/01/16 21:31 Dose: 37.5 mg - Objective Vital Signs: Vital Signs Temperature 98.4 F 07/02/16 10:00 Pulse Rate 64 07/02/16 10:00 Respiratory Rate 18 07/02/16 10:00 Blood Pressure 140/84 07/02/16 10:00 O2 Sat by Pulse Oximetry (%) 98 07/02/16 09:00 Constitutional: Yes: No Distress, Calm Eyes: Yes: Conjunctiva Clear, EOM Intact HENT: Yes: Atraumatic, Normocephalic Neck: Yes: Supple, Trachea Midline Cardiovascular: Yes: Regular Rate and Rhythm, S1, S2. No: JVD, Murmur Respiratory: Yes: Regular, CTA Bilaterally Gastrointestinal: Yes: Normal Bowel Sounds, Soft. No: Tenderness, Rebound Musculoskeletal: Yes: WNL. No: Back Pain, Joint Stiffness Extremities: Yes: WNL. No: Calf Tenderness Edema: No Peripheral Pulses WNL: Yes Neurological: Yes: Alert. No: Oriented (oriented to self) Labs: CBC, BMP 07/01/16 06:00 07/01/16 06:00 INR, PTT INR 1.18 (0.82-1.09) H 06/20/16 15:00 Problem List - Problems (1) Dementia Assessment/Plan: Advanced Dementia non communicative, no chnage in mental status. Code(s): F03.90 - UNSPECIFIED DEMENTIA WITHOUT BEHAVIORAL DISTURBANCE (2) HTN (hypertension) Assessment/Plan: Well controlled on current medication, cont same. Code(s): I10 - ESSENTIAL (PRIMARY) HYPERTENSION (3) UTI (urinary tract infection) Assessment/Plan: Completed Abx at present no active issue Code(s): N39.0 - URINARY TRACT INFECTION, SITE NOT SPECIFIED Qualifiers: Urinary tract infection type: acute cystitis Hematuria presence: with hematuria Qualified Code(s): N30.01 - Acute cystitis with hematuria (4) Sepsis Assessment/Plan: Due to UTI Resolved Code(s): A41.9 - SEPSIS, UNSPECIFIED ORGANISM Qualifiers: Sepsis type: sepsis due to unspecified organism Qualified Code(s): A41.9 - Sepsis, unspecified organism (5) Hypokalemia Assessment/Plan: Replete now K is normal F/u [facility] Code(s): E87.6 - HYPOKALEMIA
--- NOTE | 2016-07-02 15:10 | PN ---
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, Physician History of Present Illness: stable no new events - Current Medication List Current Medications: Active Medications Acetaminophen (Tylenol -) 650 mg PO Q4H PRN PRN Reason: FEVER OR PAIN Last Admin: 06/28/16 18:20 Dose: 650 mg Ascorbic Acid (Vitamin C -) 500 mg PO DAILY [facility] Last Admin: 07/02/16 09:14 Dose: 500 mg Atorvastatin Calcium (Lipitor -) 10 mg PO HS [facility] Last Admin: 07/01/16 21:32 Dose: 10 mg Collagenase (Santyl -) 1 applic TP DAILY [facility] Last Admin: 07/02/16 09:15 Dose: 1 applic Dronabinol (Marinol -) 2.5 mg PO BID [facility] Last Admin: 07/02/16 09:14 Dose: 2.5 mg Finasteride (Proscar -) 5 mg PO DAILY [facility] Last Admin: 07/02/16 09:14 Dose: 5 mg Haloperidol (Haldol Injection (Fast Acting) -) 2 mg IM Q4H PRN PRN Reason: AGITATION Last Admin: 06/22/16 02:19 Dose: 2 mg Lactobacillus Acidophilus (Bacid -) 1 tab PO DAILY [facility] Last Admin: 07/02/16 09:13 Dose: 1 tab Magnesium Oxide (Mag-Ox -) 400 mg PO BID [facility] Last Admin: 07/02/16 09:14 Dose: 400 mg Metoprolol Succinate (Toprol Xl -) 25 mg PO DAILY [facility] Last Admin: 07/02/16 09:14 Dose: 25 mg Neomycin/Polymyxin/Bacitracin (Neosporin Topical Ointment -) 1 applic TP BID [facility] Last Admin: 07/02/16 09:16 Dose: 1 applic Nystatin/Triamcinolone Acetonide (Mycolog Ii Cream -) 1 applic TP BID [facility] Last Admin: 07/02/16 09:16 Dose: 1 applic Pantoprazole Sodium (Protonix -) 40 mg PO DAILY [facility] Last Admin: 07/02/16 09:14 Dose: 40 mg Potassium Chloride (K-Dur -) 20 meq PO DAILY [facility] Last Admin: 07/02/16 09:16 Dose: 20 meq Potassium Phos/Sodium Phos (Phos-Nak Packet -) 1 packet PO BID [facility] Last Admin: 07/02/16 09:15 Dose: 1 packet Tamsulosin HCl (Flomax -) 0.4 mg PO HS [facility] Last Admin: 07/01/16 21:31 Dose: 0.4 mg Trazodone HCl (Desyrel -) 37.5 mg PO [facility] Last Admin: 07/01/16 21:31 Dose: 37.5 mg - Objective Vital Signs: Vital Signs Temperature 98.4 F 07/02/16 13:58 Pulse Rate 66 07/02/16 13:58 Respiratory Rate 16 07/02/16 13:58 Blood Pressure 102/68 07/02/16 13:58 O2 Sat by Pulse Oximetry (%) 98 07/02/16 09:00 Constitutional: Yes: No Distress, Calm Cardiovascular: Yes: S1, S2 Respiratory: Yes: Regular, CTA Bilaterally Gastrointestinal: Yes: Normal Bowel Sounds, Soft Musculoskeletal: Yes: Other Extremities: Yes: WNL Neurological: Yes: Alert Psychiatric: Yes: Other Labs: CBC, BMP 07/01/16 06:00 07/01/16 06:00 INR, PTT INR 1.18 (0.82-1.09) H 06/20/16 15:00 Assessment/Plan Problem List - Problems (1) Sepsis Code(s): A41.9 - SEPSIS, UNSPECIFIED ORGANISM Qualifiers: Sepsis type: sepsis due to unspecified organism Qualified Code(s): A41.9 - Sepsis, unspecified organism (2) UTI (urinary tract infection) Code(s): N39.0 - URINARY TRACT INFECTION, SITE NOT SPECIFIED Qualifiers: Urinary tract infection type: acute cystitis Hematuria presence: with hematuria Qualified Code(s): N30.01 - Acute cystitis with hematuria (3) Lactic acid acidosis Code(s): E87.2 - ACIDOSIS (4) Metabolic encephalopathy Code(s): G93.41 - METABOLIC ENCEPHALOPATHY (5) HTN (hypertension) Code(s): I10 - ESSENTIAL (PRIMARY) HYPERTENSION (6) Dementia Code(s): F03.90 - UNSPECIFIED DEMENTIA WITHOUT BEHAVIORAL DISTURBANCE 7 gram positive bacteremia plan continue current mgmt rest as per primary team no new issues
[2016-07-02] MEDS: traZODone HCL 50 MG TABLET (FP) PO SCH (21:06)
[2016-07-02] MEDS: TAMSULOSIN HCL 0.4 MG CAP.ER.24H (FP) PO SCH (21:07)
[2016-07-02] MEDS: ATORVASTATIN CA 10 MG TABLET (FP) PO SCH (21:07)
[2016-07-03 08:01] LABS: BASOPHIL 0.6 % (0-2.0); EOSINOPHIL 4.1 % (0-4.5); MCH 28.1 pg (25.7-33.7); MCHC 32.6 g/dl (32.0-35.9); MEAN CELL VOLUME 86.2 fl (80-96); MEAN PLT VOLUME 8.3 fl (7.5-11.1); NEUTROPHILS 60.6 % (42.8-82.8); PLATELET COUNT 198 K/MM3 (134-434); RDW 19.3 % (11.9-15.9); WHITE BLOOD COUNT 6.5 K/mm3 (4.0-10.0)
[2016-07-03 08:41] LABS: ALBUMIN 2.2 g/dl (3.4-5.0); ANION GAP 8 (8-16); CALCIUM 8.1 mg/dL (8.5-10.1); CO2 28 mmol/L (21-32); GLUCOSE,RANDOM 68 mg/dL (74-106); SGPT/ALT 20 U/L (12-78)
[2016-07-03 08:43] LABS: ALK PHOS 84 U/L (45-117); BILIRUBIN,TOTAL 0.7 mg/dL (0.2-1.0); COCKROFT - GAULT 112.21; CREATININE 0.5 mg/dL (0.7-1.3); SGOT/AST 19 U/L (15-37); TOT PROT 5.2 g/dl (6.4-8.2)
[2016-07-03] MEDS: POTASSIUM CHLORIDE TABS 20 MEQ TABLET.ER (FP) PO SCH (10:03)
[2016-07-03] MEDS: LACTOBACILLUS ACIDOPHILUS 1 EACH TAB (FP) PO SCH (10:03)
[2016-07-03] MEDS: METOPROLOL SUCCINATE 25 MG TAB.SR.24H (FP) PO SCH (10:04)
[2016-07-03] MEDS: NYSTATIN/TRIAMCINOLONE TOPICAL CREAM 15 GM TUBE TP SCH ×2 (10:04→21:34)
[2016-07-03] MEDS: MAGNESIUM OXIDE 400 MG TABLET (FP) PO SCH ×2 (10:04→21:33)
[2016-07-03] MEDS: ASCORBIC ACID 500 MG TABLET (FP) PO SCH (10:04)
[2016-07-03] MEDS: PANTOPRAZOLE 40 MG TABLET (FP) PO SCH (10:04)
[2016-07-03] MEDS: FINASTERIDE 5 MG TABLET (FP) PO SCH (10:04)
[2016-07-03] MEDS: DRONABINOL 2.5 MG CAPSULE PO SCH ×2 (10:04→21:34)
[2016-07-03] MEDS: NEOMYCIN/POLYMYXIN/BACITRACIN (TRIPLE ANTIBIOTIC) 28 GM OINTMENT TP SCH ×2 (10:05→21:34)
[2016-07-03] MEDS: NAPH,MB-DB/K PH,MBDB POWDER PACKET PO SCH ×2 (10:05→21:34)
[2016-07-03] MEDS: COLLAGENASE CLOSTRIDIUM HIST. 30 GRAMS TUBE TP SCH (10:05)
--- NOTE | 2016-07-03 12:02 | PN ---
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 - Current Medication List Current Medications: Active Medications Acetaminophen (Tylenol -) 650 mg PO Q4H PRN PRN Reason: FEVER OR PAIN Last Admin: 06/28/16 18:20 Dose: 650 mg Ascorbic Acid (Vitamin C -) 500 mg PO DAILY [facility] Last Admin: 07/03/16 10:04 Dose: 500 mg Atorvastatin Calcium (Lipitor -) 10 mg PO HS [facility] Last Admin: 07/02/16 21:07 Dose: 10 mg Collagenase (Santyl -) 1 applic TP DAILY [facility] Last Admin: 07/03/16 10:05 Dose: 1 applic Dronabinol (Marinol -) 2.5 mg PO BID [facility] Last Admin: 07/03/16 10:04 Dose: 2.5 mg Finasteride (Proscar -) 5 mg PO DAILY [facility] Last Admin: 07/03/16 10:04 Dose: 5 mg Haloperidol (Haldol Injection (Fast Acting) -) 2 mg IM Q4H PRN PRN Reason: AGITATION Last Admin: 06/22/16 02:19 Dose: 2 mg Lactobacillus Acidophilus (Bacid -) 1 tab PO DAILY [facility] Last Admin: 07/03/16 10:03 Dose: 1 tab Magnesium Oxide (Mag-Ox -) 400 mg PO BID [facility] Last Admin: 07/03/16 10:04 Dose: 400 mg Metoprolol Succinate (Toprol Xl -) 25 mg PO DAILY [facility] Last Admin: 07/03/16 10:04 Dose: 25 mg Neomycin/Polymyxin/Bacitracin (Neosporin Topical Ointment -) 1 applic TP BID [facility] Last Admin: 07/03/16 10:05 Dose: 1 applic Nystatin/Triamcinolone Acetonide (Mycolog Ii Cream -) 1 applic TP BID [facility] Last Admin: 07/03/16 10:04 Dose: 1 applic Pantoprazole Sodium (Protonix -) 40 mg PO DAILY [facility] Last Admin: 07/03/16 10:04 Dose: 40 mg Potassium Chloride (K-Dur -) 20 meq PO DAILY [facility] Last Admin: 07/03/16 10:03 Dose: 20 meq Potassium Phos/Sodium Phos (Phos-Nak Packet -) 1 packet PO BID [facility] Last Admin: 07/03/16 10:05 Dose: 1 packet Tamsulosin HCl (Flomax -) 0.4 mg PO [facility] Last Admin: 07/02/16 21:07 Dose: 0.4 mg Trazodone HCl (Desyrel -) 37.5 mg PO [facility] Last Admin: 07/02/16 21:06 Dose: 37.5 mg - Objective Vital Signs: Vital Signs Temperature 98 F 07/03/16 10:00 Pulse Rate 61 07/03/16 10:00 Respiratory Rate 18 07/03/16 10:00 Blood Pressure 139/82 07/03/16 10:00 O2 Sat by Pulse Oximetry (%) 98 07/03/16 09:00 Constitutional: Yes: No Distress, Calm Eyes: Yes: WNL, Conjunctiva Clear, EOM Intact HENT: Yes: WNL, Atraumatic, Normocephalic. No: Drooling Neck: Yes: WNL, Supple, Trachea Midline Cardiovascular: Yes: WNL, Regular Rate and Rhythm Respiratory: Yes: WNL, Regular, CTA Bilaterally Gastrointestinal: Yes: WNL, Normal Bowel Sounds, Soft Extremities: No: Calf Tenderness Edema: No Peripheral Pulses WNL: Yes Neurological: Yes: WNL, Alert. No: Oriented (Non communicative) Labs: CBC, BMP 07/03/16 06:30 07/03/16 06:30 INR, PTT INR 1.18 (0.82-1.09) H 06/20/16 15:00 Problem List - Problems (1) Dementia Assessment/Plan: Advanced Dementia non communicative, no chnage in mental status. Code(s): F03.90 - UNSPECIFIED DEMENTIA WITHOUT BEHAVIORAL DISTURBANCE (2) HTN (hypertension) Assessment/Plan: Well controlled on current medication, cont same. Code(s): I10 - ESSENTIAL (PRIMARY) HYPERTENSION (3) UTI (urinary tract infection) Assessment/Plan: Completed Abx at present no active issue Code(s): N39.0 - URINARY TRACT INFECTION, SITE NOT SPECIFIED Qualifiers: Urinary tract infection type: acute cystitis Hematuria presence: with hematuria Qualified Code(s): N30.01 - Acute cystitis with hematuria (4) Sepsis Assessment/Plan: Due to UTI Resolved Code(s): A41.9 - SEPSIS, UNSPECIFIED ORGANISM Qualifiers: Sepsis type: sepsis due to unspecified organism Qualified Code(s): A41.9 - Sepsis, unspecified organism (5) Hypokalemia Assessment/Plan: Replete now K is normal F/u [facility] Code(s): E87.6 - HYPOKALEMIA
[2016-07-03] MEDS: traZODone HCL 50 MG TABLET (FP) PO SCH (21:33)
[2016-07-03] MEDS: TAMSULOSIN HCL 0.4 MG CAP.ER.24H (FP) PO SCH (21:34)
[2016-07-03] MEDS: ATORVASTATIN CA 10 MG TABLET (FP) PO SCH (21:34)
--- NOTE | 2016-07-04 08:35 | PN ---
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, Physician History of Present Illness: stable no new issues - Current Medication List Current Medications: Active Medications Acetaminophen (Tylenol -) 650 mg PO Q4H PRN PRN Reason: FEVER OR PAIN Last Admin: 06/28/16 18:20 Dose: 650 mg Ascorbic Acid (Vitamin C -) 500 mg PO DAILY [facility] Last Admin: 07/03/16 10:04 Dose: 500 mg Atorvastatin Calcium (Lipitor -) 10 mg PO HS [facility] Last Admin: 07/03/16 21:34 Dose: 10 mg Collagenase (Santyl -) 1 applic TP DAILY [facility] Last Admin: 07/03/16 10:05 Dose: 1 applic Dronabinol (Marinol -) 2.5 mg PO BID [facility] Last Admin: 07/03/16 21:34 Dose: 2.5 mg Finasteride (Proscar -) 5 mg PO DAILY [facility] Last Admin: 07/03/16 10:04 Dose: 5 mg Haloperidol (Haldol Injection (Fast Acting) -) 2 mg IM Q4H PRN PRN Reason: AGITATION Last Admin: 06/22/16 02:19 Dose: 2 mg Lactobacillus Acidophilus (Bacid -) 1 tab PO DAILY [facility] Last Admin: 07/03/16 10:03 Dose: 1 tab Magnesium Oxide (Mag-Ox -) 400 mg PO BID [facility] Last Admin: 07/03/16 21:33 Dose: 400 mg Metoprolol Succinate (Toprol Xl -) 25 mg PO DAILY [facility] Last Admin: 07/03/16 10:04 Dose: 25 mg Neomycin/Polymyxin/Bacitracin (Neosporin Topical Ointment -) 1 applic TP BID [facility] Last Admin: 07/03/16 21:34 Dose: 1 applic Nystatin/Triamcinolone Acetonide (Mycolog Ii Cream -) 1 applic TP BID [facility] Last Admin: 07/03/16 21:34 Dose: 1 applic Pantoprazole Sodium (Protonix -) 40 mg PO DAILY [facility] Last Admin: 07/03/16 10:04 Dose: 40 mg Potassium Chloride (K-Dur -) 20 meq PO DAILY [facility] Last Admin: 07/03/16 10:03 Dose: 20 meq Potassium Phos/Sodium Phos (Phos-Nak Packet -) 1 packet PO BID [facility] Last Admin: 07/03/16 21:34 Dose: 1 packet Tamsulosin HCl (Flomax -) 0.4 mg PO HS [facility] Last Admin: 07/03/16 21:34 Dose: 0.4 mg Trazodone HCl (Desyrel -) 37.5 mg PO [facility] Last Admin: 07/03/16 21:33 Dose: 37.5 mg - Objective Vital Signs: Vital Signs Temperature 97.3 F L 07/04/16 06:00 Pulse Rate 70 07/04/16 06:00 Respiratory Rate 18 07/04/16 06:00 Blood Pressure 141/74 07/04/16 06:00 O2 Sat by Pulse Oximetry (%) 98 07/03/16 21:00 Constitutional: Yes: No Distress, Calm Cardiovascular: Yes: S1, S2 Respiratory: Yes: Regular, CTA Bilaterally Gastrointestinal: Yes: Normal Bowel Sounds, Soft Genitourinary: Yes: [place] Present Neurological: Yes: Alert, Oriented Labs: CBC, BMP 07/03/16 06:30 07/03/16 06:30 INR, PTT INR 1.18 (0.82-1.09) H 06/20/16 15:00 Assessment/Plan Problem List - Problems (1) Sepsis Code(s): A41.9 - SEPSIS, UNSPECIFIED ORGANISM Qualifiers: Sepsis type: sepsis due to unspecified organism Qualified Code(s): A41.9 - Sepsis, unspecified organism (2) UTI (urinary tract infection) Code(s): N39.0 - URINARY TRACT INFECTION, SITE NOT SPECIFIED Qualifiers: Urinary tract infection type: acute cystitis Hematuria presence: with hematuria Qualified Code(s): N30.01 - Acute cystitis with hematuria (3) Lactic acid acidosis Code(s): E87.2 - ACIDOSIS (4) Metabolic encephalopathy Code(s): G93.41 - METABOLIC ENCEPHALOPATHY (5) HTN (hypertension) Code(s): I10 - ESSENTIAL (PRIMARY) HYPERTENSION (6) Dementia Code(s): F03.90 - UNSPECIFIED DEMENTIA WITHOUT BEHAVIORAL DISTURBANCE 7 gram positive bacteremia plan continue current mgmt rest as per primary team no new issues
[2016-07-04] MEDS: ASCORBIC ACID 500 MG TABLET (FP) PO SCH (10:02)
[2016-07-04] MEDS: PANTOPRAZOLE 40 MG TABLET (FP) PO SCH (10:02)
[2016-07-04] MEDS: DRONABINOL 2.5 MG CAPSULE PO SCH ×2 (10:02→21:03)
[2016-07-04] MEDS: POTASSIUM CHLORIDE TABS 20 MEQ TABLET.ER (FP) PO SCH (10:02)
[2016-07-04] MEDS: NAPH,MB-DB/K PH,MBDB POWDER PACKET PO SCH ×2 (10:02→21:04)
[2016-07-04] MEDS: LACTOBACILLUS ACIDOPHILUS 1 EACH TAB (FP) PO SCH (10:02)
[2016-07-04] MEDS: FINASTERIDE 5 MG TABLET (FP) PO SCH (10:02)
[2016-07-04] MEDS: MAGNESIUM OXIDE 400 MG TABLET (FP) PO SCH ×2 (10:02→21:02)
[2016-07-04] MEDS: NYSTATIN/TRIAMCINOLONE TOPICAL CREAM 15 GM TUBE TP SCH ×2 (10:03→21:04)
[2016-07-04] MEDS: METOPROLOL SUCCINATE 25 MG TAB.SR.24H (FP) PO SCH (10:03)
[2016-07-04] MEDS: NEOMYCIN/POLYMYXIN/BACITRACIN (TRIPLE ANTIBIOTIC) 28 GM OINTMENT TP SCH ×2 (10:03→21:04)
[2016-07-04] MEDS: COLLAGENASE CLOSTRIDIUM HIST. 30 GRAMS TUBE TP SCH (10:04)
--- NOTE | 2016-07-04 13:30 | PN ---
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 (short form) - Note 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: No new complaints O/E Vital Signs Period Temp Pulse Resp BP Sys/Kerr Pulse Ox Last 24 Hr 97.3 F-98.2 F 62-70 18-20 118-150/63-79 98-100 Heart regula;r Lungs clear Abd soft Ext no edema Current Medications Acetaminophen (Tylenol -) 650 mg PO Q4H PRN PRN Reason: FEVER OR PAIN Last Admin: 06/28/16 18:20 Dose: 650 mg Ascorbic Acid (Vitamin C -) 500 mg PO DAILY [facility] Last Admin: 07/04/16 10:02 Dose: 500 mg Atorvastatin Calcium (Lipitor -) 10 mg PO HS [facility] Last Admin: 07/03/16 21:34 Dose: 10 mg Collagenase (Santyl -) 1 applic TP DAILY [facility] Last Admin: 07/04/16 10:04 Dose: 1 applic Dronabinol (Marinol -) 2.5 mg PO BID [facility] Last Admin: 07/04/16 10:02 Dose: 2.5 mg Finasteride (Proscar -) 5 mg PO DAILY [facility] Last Admin: 07/04/16 10:02 Dose: 5 mg Haloperidol (Haldol Injection (Fast Acting) -) 2 mg IM Q4H PRN PRN Reason: AGITATION Last Admin: 06/22/16 02:19 Dose: 2 mg Lactobacillus Acidophilus (Bacid -) 1 tab PO DAILY [facility] Last Admin: 07/04/16 10:02 Dose: 1 tab Magnesium Oxide (Mag-Ox -) 400 mg PO BID [facility] Last Admin: 07/04/16 10:02 Dose: 400 mg Metoprolol Succinate (Toprol Xl -) 25 mg PO DAILY [facility] Last Admin: 07/04/16 10:03 Dose: 25 mg Neomycin/Polymyxin/Bacitracin (Neosporin Topical Ointment -) 1 applic TP BID [facility] Last Admin: 07/04/16 10:03 Dose: 1 applic Nystatin/Triamcinolone Acetonide (Mycolog Ii Cream -) 1 applic TP BID [facility] Last Admin: 07/04/16 10:03 Dose: 1 applic Pantoprazole Sodium (Protonix -) 40 mg PO DAILY [facility] Last Admin: 07/04/16 10:02 Dose: 40 mg Potassium Chloride (K-Dur -) 20 meq PO DAILY [facility] Last Admin: 07/04/16 10:02 Dose: 20 meq Potassium Phos/Sodium Phos (Phos-Nak Packet -) 1 packet PO BID [facility] Last Admin: 07/04/16 10:02 Dose: 1 packet Tamsulosin HCl (Flomax -) 0.4 mg PO [facility] Last Admin: 07/03/16 21:34 Dose: 0.4 mg Trazodone HCl (Desyrel -) 37.5 mg PO HS [facility] Last Admin: 07/03/16 21:33 Dose: 37.5 mg A&P Assessment/Plan (1) Sepsis Code(s): A41.9 - SEPSIS, UNSPECIFIED ORGANISM Resolved Qualifiers: Sepsis type: sepsis due to unspecified organism Qualified Code(s): A41.9 - Sepsis, unspecified organism (2) UTI (urinary tract infection) Code(s): N39.0 - URINARY TRACT INFECTION, SITE NOT SPECIFIED Afebrile Qualifiers: Urinary tract infection type: acute cystitis Hematuria presence: with hematuria Qualified Code(s): N30.01 - Acute cystitis with hematuria ( (4) Metabolic encephalopathy Code(s): G93.41 - METABOLIC ENCEPHALOPATHY (5) HTN (hypertension) Code(s): I10 - ESSENTIAL (PRIMARY) HYPERTENSION (6) Dementia Code(s): F03.90 - UNSPECIFIED DEMENTIA WITHOUT BEHAVIORAL DISTURBANCE Plan -continue current management -patient medically stable for discharge -awaiting placement
[2016-07-04] MEDS: TAMSULOSIN HCL 0.4 MG CAP.ER.24H (FP) PO SCH (21:03)
[2016-07-04] MEDS: traZODone HCL 50 MG TABLET (FP) PO SCH (21:03)
[2016-07-04] MEDS: ATORVASTATIN CA 10 MG TABLET (FP) PO SCH (21:03)
--- NOTE | 2016-07-05 09:44 | PN ---
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, Physician History of Present Illness: no new events - Current Medication List Current Medications: Active Medications Acetaminophen (Tylenol -) 650 mg PO Q4H PRN PRN Reason: FEVER OR PAIN Last Admin: 06/28/16 18:20 Dose: 650 mg Ascorbic Acid (Vitamin C -) 500 mg PO DAILY [facility] Last Admin: 07/04/16 10:02 Dose: 500 mg Atorvastatin Calcium (Lipitor -) 10 mg PO HS [facility] Last Admin: 07/04/16 21:03 Dose: 10 mg Collagenase (Santyl -) 1 applic TP DAILY [facility] Last Admin: 07/04/16 10:04 Dose: 1 applic Dronabinol (Marinol -) 2.5 mg PO BID [facility] Last Admin: 07/04/16 21:03 Dose: 2.5 mg Finasteride (Proscar -) 5 mg PO DAILY [facility] Last Admin: 07/04/16 10:02 Dose: 5 mg Haloperidol (Haldol Injection (Fast Acting) -) 2 mg IM Q4H PRN PRN Reason: AGITATION Last Admin: 06/22/16 02:19 Dose: 2 mg Lactobacillus Acidophilus (Bacid -) 1 tab PO DAILY [facility] Last Admin: 07/04/16 10:02 Dose: 1 tab Magnesium Oxide (Mag-Ox -) 400 mg PO BID [facility] Last Admin: 07/04/16 21:02 Dose: 400 mg Metoprolol Succinate (Toprol Xl -) 25 mg PO DAILY [facility] Last Admin: 07/04/16 10:03 Dose: 25 mg Neomycin/Polymyxin/Bacitracin (Neosporin Topical Ointment -) 1 applic TP BID [facility] Last Admin: 07/04/16 21:04 Dose: 1 applic Nystatin/Triamcinolone Acetonide (Mycolog Ii Cream -) 1 applic TP BID [facility] Last Admin: 07/04/16 21:04 Dose: 1 applic Pantoprazole Sodium (Protonix -) 40 mg PO DAILY [facility] Last Admin: 07/04/16 10:02 Dose: 40 mg Potassium Chloride (K-Dur -) 20 meq PO DAILY [facility] Last Admin: 07/04/16 10:02 Dose: 20 meq Potassium Phos/Sodium Phos (Phos-Nak Packet -) 1 packet PO BID [facility] Last Admin: 07/04/16 21:04 Dose: 1 packet Tamsulosin HCl (Flomax -) 0.4 mg PO HS [facility] Last Admin: 07/04/16 21:03 Dose: 0.4 mg Trazodone HCl (Desyrel -) 37.5 mg PO [facility] Last Admin: 07/04/16 21:03 Dose: 37.5 mg - Objective Vital Signs: Vital Signs Temperature 98.4 F 07/05/16 05:54 Pulse Rate 66 07/05/16 05:54 Respiratory Rate 18 07/05/16 05:54 Blood Pressure 122/72 07/05/16 05:54 O2 Sat by Pulse Oximetry (%) 100 07/04/16 21:00 Constitutional: Yes: No Distress, Calm Cardiovascular: Yes: S1, S2 Respiratory: Yes: Regular, CTA Bilaterally Gastrointestinal: Yes: Normal Bowel Sounds, Soft Genitourinary: Yes: [place] Present Musculoskeletal: Yes: WNL Extremities: Yes: WNL Neurological: Yes: Alert, Other Labs: CBC, BMP 07/03/16 06:30 07/03/16 06:30 INR, PTT INR 1.18 (0.82-1.09) H 06/20/16 15:00 Assessment/Plan Problem List - Problems (1) Sepsis Code(s): A41.9 - SEPSIS, UNSPECIFIED ORGANISM Qualifiers: Sepsis type: sepsis due to unspecified organism Qualified Code(s): A41.9 - Sepsis, unspecified organism (2) UTI (urinary tract infection) Code(s): N39.0 - URINARY TRACT INFECTION, SITE NOT SPECIFIED Qualifiers: Urinary tract infection type: acute cystitis Hematuria presence: with hematuria Qualified Code(s): N30.01 - Acute cystitis with hematuria (3) Lactic acid acidosis Code(s): E87.2 - ACIDOSIS (4) Metabolic encephalopathy Code(s): G93.41 - METABOLIC ENCEPHALOPATHY (5) HTN (hypertension) Code(s): I10 - ESSENTIAL (PRIMARY) HYPERTENSION (6) Dementia Code(s): F03.90 - UNSPECIFIED DEMENTIA WITHOUT BEHAVIORAL DISTURBANCE 7 gram positive bacteremia plan continue current mgmt rest as per primary team no new issues awaiting placement
[2016-07-05] MEDS: NEOMYCIN/POLYMYXIN/BACITRACIN (TRIPLE ANTIBIOTIC) 28 GM OINTMENT TP SCH ×2 (10:36→21:30)
[2016-07-05] MEDS: COLLAGENASE CLOSTRIDIUM HIST. 30 GRAMS TUBE TP SCH (10:37)
[2016-07-05] MEDS: NYSTATIN/TRIAMCINOLONE TOPICAL CREAM 15 GM TUBE TP SCH ×2 (10:37→21:29)
[2016-07-05] MEDS: ASCORBIC ACID 500 MG TABLET (FP) PO SCH (10:41)
[2016-07-05] MEDS: LACTOBACILLUS ACIDOPHILUS 1 EACH TAB (FP) PO SCH (10:41)
[2016-07-05] MEDS: MAGNESIUM OXIDE 400 MG TABLET (FP) PO SCH ×2 (10:42→21:30)
[2016-07-05] MEDS: METOPROLOL SUCCINATE 25 MG TAB.SR.24H (FP) PO SCH (10:42)
[2016-07-05] MEDS: PANTOPRAZOLE 40 MG TABLET (FP) PO SCH (10:42)
[2016-07-05] MEDS: FINASTERIDE 5 MG TABLET (FP) PO SCH (10:42)
[2016-07-05] MEDS: NAPH,MB-DB/K PH,MBDB POWDER PACKET PO SCH ×2 (10:43→21:30)
[2016-07-05] MEDS: DRONABINOL 2.5 MG CAPSULE PO SCH ×2 (10:43→21:30)
[2016-07-05] MEDS: POTASSIUM CHLORIDE TABS 20 MEQ TABLET.ER (FP) PO SCH (10:43)
[2016-07-05] MEDS: ACETAMINOPHEN 325 MG TABLET (FP) PO PRN (11:38)
--- NOTE | 2016-07-05 13:15 | PN ---
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 (short form) - Note 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: No complaints O/E Vital Signs Period Temp Pulse Resp BP Sys/Kerr Pulse Ox Last 24 Hr 97.7 F-98.5 F 65-87 16-20 105-129/58-76 98-100 Heart regular Lungs clear Abd softy Ext no edema Current Medications Acetaminophen (Tylenol -) 650 mg PO Q4H PRN PRN Reason: FEVER OR PAIN Last Admin: 07/05/16 11:38 Dose: 650 mg Ascorbic Acid (Vitamin C -) 500 mg PO DAILY [facility] Last Admin: 07/05/16 10:41 Dose: 500 mg Atorvastatin Calcium (Lipitor -) 10 mg PO HS [facility] Last Admin: 07/04/16 21:03 Dose: 10 mg Collagenase (Santyl -) 1 applic TP DAILY [facility] Last Admin: 07/05/16 10:37 Dose: 1 applic Dronabinol (Marinol -) 2.5 mg PO BID [facility] Last Admin: 07/05/16 10:43 Dose: 2.5 mg Finasteride (Proscar -) 5 mg PO DAILY [facility] Last Admin: 07/05/16 10:42 Dose: 5 mg Haloperidol (Haldol Injection (Fast Acting) -) 2 mg IM Q4H PRN PRN Reason: AGITATION Last Admin: 06/22/16 02:19 Dose: 2 mg Lactobacillus Acidophilus (Bacid -) 1 tab PO DAILY [facility] Last Admin: 07/05/16 10:41 Dose: 1 tab Magnesium Oxide (Mag-Ox -) 400 mg PO BID [facility] Last Admin: 07/05/16 10:42 Dose: 400 mg Metoprolol Succinate (Toprol Xl -) 25 mg PO DAILY [facility] Last Admin: 07/05/16 10:42 Dose: 25 mg Neomycin/Polymyxin/Bacitracin (Neosporin Topical Ointment -) 1 applic TP BID [facility] Last Admin: 07/05/16 10:36 Dose: 1 applic Nystatin/Triamcinolone Acetonide (Mycolog Ii Cream -) 1 applic TP BID [facility] Last Admin: 07/05/16 10:37 Dose: 1 applic Pantoprazole Sodium (Protonix -) 40 mg PO DAILY [facility] Last Admin: 07/05/16 10:42 Dose: 40 mg Potassium Chloride (K-Dur -) 20 meq PO DAILY [facility] Last Admin: 07/05/16 10:43 Dose: 20 meq Potassium Phos/Sodium Phos (Phos-Nak Packet -) 1 packet PO BID [facility] Last Admin: 07/05/16 10:43 Dose: 1 packet Tamsulosin HCl (Flomax -) 0.4 mg PO [facility] Last Admin: 07/04/16 21:03 Dose: 0.4 mg Trazodone HCl (Desyrel -) 37.5 mg PO [facility] Last Admin: 07/04/16 21:03 Dose: 37.5 mg A&P Assessment/Plan (1) Sepsis Code(s): A41.9 - SEPSIS, UNSPECIFIED ORGANISM Resolved Qualifiers: Sepsis type: sepsis due to unspecified organism Qualified Code(s): A41.9 - Sepsis, unspecified organism (2) UTI (urinary tract infection) Code(s): N39.0 - URINARY TRACT INFECTION, SITE NOT SPECIFIED Afebrile Qualifiers: Urinary tract infection type: acute cystitis Hematuria presence: with hematuria Qualified Code(s): N30.01 - Acute cystitis with hematuria ( (4) Metabolic encephalopathy Code(s): G93.41 - METABOLIC ENCEPHALOPATHY (5) HTN (hypertension) Code(s): I10 - ESSENTIAL (PRIMARY) HYPERTENSION (6) Dementia Code(s): F03.90 - UNSPECIFIED DEMENTIA WITHOUT BEHAVIORAL DISTURBANCE Awaiting discharge planning and placement
[2016-07-05] MEDS: ATORVASTATIN CA 10 MG TABLET (FP) PO SCH (21:30)
[2016-07-05] MEDS: TAMSULOSIN HCL 0.4 MG CAP.ER.24H (FP) PO SCH (21:30)
[2016-07-05] MEDS: traZODone HCL 50 MG TABLET (FP) PO SCH (21:30)
[2016-07-06] MEDS: LACTOBACILLUS ACIDOPHILUS 1 EACH TAB (FP) PO SCH (09:44)
[2016-07-06] MEDS: METOPROLOL SUCCINATE 25 MG TAB.SR.24H (FP) PO SCH (09:44)
[2016-07-06] MEDS: DRONABINOL 2.5 MG CAPSULE PO SCH ×2 (09:44→22:00)
[2016-07-06] MEDS: PANTOPRAZOLE 40 MG TABLET (FP) PO SCH (09:44)
[2016-07-06] MEDS: MAGNESIUM OXIDE 400 MG TABLET (FP) PO SCH ×2 (09:44→22:02)
[2016-07-06] MEDS: POTASSIUM CHLORIDE TABS 20 MEQ TABLET.ER (FP) PO SCH (09:44)
[2016-07-06] MEDS: FINASTERIDE 5 MG TABLET (FP) PO SCH (09:44)
[2016-07-06] MEDS: ASCORBIC ACID 500 MG TABLET (FP) PO SCH (09:44)
[2016-07-06] MEDS: NYSTATIN/TRIAMCINOLONE TOPICAL CREAM 15 GM TUBE TP SCH ×2 (09:45→22:00)
[2016-07-06] MEDS: COLLAGENASE CLOSTRIDIUM HIST. 30 GRAMS TUBE TP SCH (09:45)
[2016-07-06] MEDS: NAPH,MB-DB/K PH,MBDB POWDER PACKET PO SCH ×2 (09:45→22:03)
[2016-07-06] MEDS: NEOMYCIN/POLYMYXIN/BACITRACIN (TRIPLE ANTIBIOTIC) 28 GM OINTMENT TP SCH ×2 (09:45→22:04)
--- NOTE | 2016-07-06 13:21 | PN ---
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 (short form) - Note 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: No new complaints O/E' Vital Signs Period Temp Pulse Resp BP Sys/Kerr Pulse Ox Last 24 Hr 97.1 F-98.4 F 60-77 16-20 100-115/50-67 98-98 Heart regular Lungs clear Abd soft Ext no edema Current Medications Acetaminophen (Tylenol -) 650 mg PO Q4H PRN PRN Reason: FEVER OR PAIN Last Admin: 07/05/16 11:38 Dose: 650 mg Ascorbic Acid (Vitamin C -) 500 mg PO DAILY [facility] Last Admin: 07/06/16 09:44 Dose: 500 mg Atorvastatin Calcium (Lipitor -) 10 mg PO HS [facility] Last Admin: 07/05/16 21:30 Dose: 10 mg Collagenase (Santyl -) 1 applic TP DAILY [facility] Last Admin: 07/06/16 09:45 Dose: 1 applic Dronabinol (Marinol -) 2.5 mg PO BID [facility] Last Admin: 07/06/16 09:44 Dose: 2.5 mg Finasteride (Proscar -) 5 mg PO DAILY [facility] Last Admin: 07/06/16 09:44 Dose: 5 mg Haloperidol (Haldol Injection (Fast Acting) -) 2 mg IM Q4H PRN PRN Reason: AGITATION Last Admin: 06/22/16 02:19 Dose: 2 mg Lactobacillus Acidophilus (Bacid -) 1 tab PO DAILY [facility] Last Admin: 07/06/16 09:44 Dose: 1 tab Magnesium Oxide (Mag-Ox -) 400 mg PO BID [facility] Last Admin: 07/06/16 09:44 Dose: 400 mg Metoprolol Succinate (Toprol Xl -) 25 mg PO DAILY [facility] Last Admin: 07/06/16 09:44 Dose: 25 mg Neomycin/Polymyxin/Bacitracin (Neosporin Topical Ointment -) 1 applic TP BID [facility] Last Admin: 07/06/16 09:45 Dose: 1 applic Nystatin/Triamcinolone Acetonide (Mycolog Ii Cream -) 1 applic TP BID [facility] Last Admin: 07/06/16 09:45 Dose: 1 applic Pantoprazole Sodium (Protonix -) 40 mg PO DAILY [facility] Last Admin: 07/06/16 09:44 Dose: 40 mg Potassium Chloride (K-Dur -) 20 meq PO DAILY [facility] Last Admin: 07/06/16 09:44 Dose: 20 meq Potassium Phos/Sodium Phos (Phos-Nak Packet -) 1 packet PO BID [facility] Last Admin: 07/06/16 09:45 Dose: 1 packet Tamsulosin HCl (Flomax -) 0.4 mg PO [facility] Last Admin: 07/05/16 21:30 Dose: 0.4 mg Trazodone HCl (Desyrel -) 37.5 mg PO [facility] Last Admin: 07/05/16 21:30 Dose: 37.5 mg A&P Assessment/Plan (1) Sepsis Code(s): A41.9 - SEPSIS, UNSPECIFIED ORGANISM Resolved Qualifiers: Sepsis type: sepsis due to unspecified organism Qualified Code(s): A41.9 - Sepsis, unspecified organism (2) UTI (urinary tract infection) Code(s): N39.0 - URINARY TRACT INFECTION, SITE NOT SPECIFIED Afebrile Qualifiers: Urinary tract infection type: acute cystitis Hematuria presence: with hematuria Qualified Code(s): N30.01 - Acute cystitis with hematuria Resolved ( (4) Metabolic encephalopathy Code(s): G93.41 - METABOLIC ENCEPHALOPATHY stable (5) HTN (hypertension) Code(s): I10 - ESSENTIAL (PRIMARY) HYPERTENSION Controlled (6) Dementia Code(s): F03.90 - UNSPECIFIED DEMENTIA WITHOUT BEHAVIORAL DISTURBANCE Awaiting discharge planning and placement
--- NOTE | 2016-07-06 15:57 | PN ---
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, Physician History of Present Illness: no new issues stable - Current Medication List Current Medications: Active Medications Acetaminophen (Tylenol -) 650 mg PO Q4H PRN PRN Reason: FEVER OR PAIN Last Admin: 07/05/16 11:38 Dose: 650 mg Ascorbic Acid (Vitamin C -) 500 mg PO DAILY [facility] Last Admin: 07/06/16 09:44 Dose: 500 mg Atorvastatin Calcium (Lipitor -) 10 mg PO HS [facility] Last Admin: 07/05/16 21:30 Dose: 10 mg Collagenase (Santyl -) 1 applic TP DAILY [facility] Last Admin: 07/06/16 09:45 Dose: 1 applic Dronabinol (Marinol -) 2.5 mg PO BID [facility] Last Admin: 07/06/16 09:44 Dose: 2.5 mg Finasteride (Proscar -) 5 mg PO DAILY [facility] Last Admin: 07/06/16 09:44 Dose: 5 mg Haloperidol (Haldol Injection (Fast Acting) -) 2 mg IM Q4H PRN PRN Reason: AGITATION Last Admin: 06/22/16 02:19 Dose: 2 mg Lactobacillus Acidophilus (Bacid -) 1 tab PO DAILY [facility] Last Admin: 07/06/16 09:44 Dose: 1 tab Magnesium Oxide (Mag-Ox -) 400 mg PO BID [facility] Last Admin: 07/06/16 09:44 Dose: 400 mg Metoprolol Succinate (Toprol Xl -) 25 mg PO DAILY [facility] Last Admin: 07/06/16 09:44 Dose: 25 mg Neomycin/Polymyxin/Bacitracin (Neosporin Topical Ointment -) 1 applic TP BID [facility] Last Admin: 07/06/16 09:45 Dose: 1 applic Nystatin/Triamcinolone Acetonide (Mycolog Ii Cream -) 1 applic TP BID [facility] Last Admin: 07/06/16 09:45 Dose: 1 applic Pantoprazole Sodium (Protonix -) 40 mg PO DAILY [facility] Last Admin: 07/06/16 09:44 Dose: 40 mg Potassium Chloride (K-Dur -) 20 meq PO DAILY [facility] Last Admin: 07/06/16 09:44 Dose: 20 meq Potassium Phos/Sodium Phos (Phos-Nak Packet -) 1 packet PO BID [facility] Last Admin: 07/06/16 09:45 Dose: 1 packet Tamsulosin HCl (Flomax -) 0.4 mg PO HS [facility] Last Admin: 07/05/16 21:30 Dose: 0.4 mg Trazodone HCl (Desyrel -) 37.5 mg PO [facility] Last Admin: 07/05/16 21:30 Dose: 37.5 mg - Objective Vital Signs: Vital Signs Temperature 98.4 F 07/06/16 14:37 Pulse Rate 66 07/06/16 14:37 Respiratory Rate 18 07/06/16 14:37 Blood Pressure 118/66 07/06/16 14:37 O2 Sat by Pulse Oximetry (%) 98 07/06/16 09:00 Constitutional: Yes: No Distress, Calm Cardiovascular: Yes: S1, S2 Gastrointestinal: Yes: Normal Bowel Sounds, Soft Genitourinary: Yes: [place] Present Neurological: Yes: Alert, Other Labs: CBC, BMP 07/03/16 06:30 07/03/16 06:30 INR, PTT INR 1.18 (0.82-1.09) H 06/20/16 15:00 Assessment/Plan Problem List - Problems (1) Sepsis Code(s): A41.9 - SEPSIS, UNSPECIFIED ORGANISM Qualifiers: Sepsis type: sepsis due to unspecified organism Qualified Code(s): A41.9 - Sepsis, unspecified organism (2) UTI (urinary tract infection) Code(s): N39.0 - URINARY TRACT INFECTION, SITE NOT SPECIFIED Qualifiers: Urinary tract infection type: acute cystitis Hematuria presence: with hematuria Qualified Code(s): N30.01 - Acute cystitis with hematuria (3) Lactic acid acidosis Code(s): E87.2 - ACIDOSIS (4) Metabolic encephalopathy Code(s): G93.41 - METABOLIC ENCEPHALOPATHY (5) HTN (hypertension) Code(s): I10 - ESSENTIAL (PRIMARY) HYPERTENSION (6) Dementia Code(s): F03.90 - UNSPECIFIED DEMENTIA WITHOUT BEHAVIORAL DISTURBANCE 7 gram positive bacteremia plan stable continue current mgmt awaiting placement
[2016-07-06] MEDS: traZODone HCL 50 MG TABLET (FP) PO SCH (22:00)
[2016-07-06] MEDS: TAMSULOSIN HCL 0.4 MG CAP.ER.24H (FP) PO SCH (22:00)
[2016-07-06] MEDS: ATORVASTATIN CA 10 MG TABLET (FP) PO SCH (22:01)
--- NOTE | 2016-07-07 10:46 | PN ---
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 (short form) - Note 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: No new complaints Awaiting placement O/E Vital Signs Period Temp Pulse Resp BP Sys/Kerr Pulse Ox Last 24 Hr 97.4 F-98.4 F 65-79 18-20 118-145/66-78 Heart regular Lungs clear Abd soft Ext no edema Current Medications Acetaminophen (Tylenol -) 650 mg PO Q4H PRN PRN Reason: FEVER OR PAIN Last Admin: 07/05/16 11:38 Dose: 650 mg Ascorbic Acid (Vitamin C -) 500 mg PO DAILY [facility] Last Admin: 07/06/16 09:44 Dose: 500 mg Atorvastatin Calcium (Lipitor -) 10 mg PO HS [facility] Last Admin: 07/05/16 21:30 Dose: 10 mg Collagenase (Santyl -) 1 applic TP DAILY [facility] Last Admin: 07/06/16 09:45 Dose: 1 applic Dronabinol (Marinol -) 2.5 mg PO BID [facility] Last Admin: 07/06/16 09:44 Dose: 2.5 mg Finasteride (Proscar -) 5 mg PO DAILY [facility] Last Admin: 07/06/16 09:44 Dose: 5 mg Haloperidol (Haldol Injection (Fast Acting) -) 2 mg IM Q4H PRN PRN Reason: AGITATION Last Admin: 06/22/16 02:19 Dose: 2 mg Lactobacillus Acidophilus (Bacid -) 1 tab PO DAILY [facility] Last Admin: 07/06/16 09:44 Dose: 1 tab Magnesium Oxide (Mag-Ox -) 400 mg PO BID [facility] Last Admin: 07/06/16 09:44 Dose: 400 mg Metoprolol Succinate (Toprol Xl -) 25 mg PO DAILY [facility] Last Admin: 07/06/16 09:44 Dose: 25 mg Neomycin/Polymyxin/Bacitracin (Neosporin Topical Ointment -) 1 applic TP BID [facility] Last Admin: 07/06/16 09:45 Dose: 1 applic Nystatin/Triamcinolone Acetonide (Mycolog Ii Cream -) 1 applic TP BID [facility] Last Admin: 07/06/16 09:45 Dose: 1 applic Pantoprazole Sodium (Protonix -) 40 mg PO DAILY [facility] Last Admin: 07/06/16 09:44 Dose: 40 mg Potassium Chloride (K-Dur -) 20 meq PO DAILY [facility] Last Admin: 07/06/16 09:44 Dose: 20 meq Potassium Phos/Sodium Phos (Phos-Nak Packet -) 1 packet PO BID [facility] Last Admin: 07/06/16 09:45 Dose: 1 packet Tamsulosin HCl (Flomax -) 0.4 mg PO [facility] Last Admin: 07/05/16 21:30 Dose: 0.4 mg Trazodone HCl (Desyrel -) 37.5 mg PO [facility] Last Admin: 07/05/16 21:30 Dose: 37.5 mg A&P Assessment/Plan (1) Sepsis Code(s): A41.9 - SEPSIS, UNSPECIFIED ORGANISM Resolved Qualifiers: Sepsis type: sepsis due to unspecified organism Qualified Code(s): A41.9 - Sepsis, unspecified organism (2) UTI (urinary tract infection) Code(s): N39.0 - URINARY TRACT INFECTION, SITE NOT SPECIFIED Afebrile Qualifiers: Urinary tract infection type: acute cystitis Hematuria presence: with hematuria Qualified Code(s): N30.01 - Acute cystitis with hematuria Resolved (3) Metabolic encephalopathy Code(s): G93.41 - METABOLIC ENCEPHALOPATHY stable (4) HTN (hypertension) Code(s): I10 - ESSENTIAL (PRIMARY) HYPERTENSION Controlled (5) Dementia Code(s): F03.90 - UNSPECIFIED DEMENTIA WITHOUT BEHAVIORAL DISTURBANCE Awaiting discharge planning and placement
[2016-07-07] MEDS: ASCORBIC ACID 500 MG TABLET (FP) PO SCH (11:06)
[2016-07-07] MEDS: LACTOBACILLUS ACIDOPHILUS 1 EACH TAB (FP) PO SCH (11:06)
[2016-07-07] MEDS: MAGNESIUM OXIDE 400 MG TABLET (FP) PO SCH ×2 (11:07→21:02)
[2016-07-07] MEDS: DRONABINOL 2.5 MG CAPSULE PO SCH ×2 (11:07→21:03)
[2016-07-07] MEDS: POTASSIUM CHLORIDE TABS 20 MEQ TABLET.ER (FP) PO SCH (11:07)
[2016-07-07] MEDS: NAPH,MB-DB/K PH,MBDB POWDER PACKET PO SCH ×2 (11:07→21:03)
[2016-07-07] MEDS: FINASTERIDE 5 MG TABLET (FP) PO SCH (11:07)
[2016-07-07] MEDS: PANTOPRAZOLE 40 MG TABLET (FP) PO SCH (11:07)
[2016-07-07] MEDS: METOPROLOL SUCCINATE 25 MG TAB.SR.24H (FP) PO SCH (11:08)
[2016-07-07] MEDS: NEOMYCIN/POLYMYXIN/BACITRACIN (TRIPLE ANTIBIOTIC) 28 GM OINTMENT TP SCH ×2 (11:08→21:03)
[2016-07-07] MEDS: COLLAGENASE CLOSTRIDIUM HIST. 30 GRAMS TUBE TP SCH (11:09)
[2016-07-07] MEDS: NYSTATIN/TRIAMCINOLONE TOPICAL CREAM 15 GM TUBE TP SCH ×2 (11:09→21:03)
[2016-07-07] MEDS: ACETAMINOPHEN 325 MG TABLET (FP) PO PRN (12:11)
--- NOTE | 2016-07-07 13:40 | PN ---
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, Physician History of Present Illness: no new events patient with no issues - Current Medication List Current Medications: Active Medications Acetaminophen (Tylenol -) 650 mg PO Q4H PRN PRN Reason: FEVER OR PAIN Last Admin: 07/07/16 12:11 Dose: 650 mg Ascorbic Acid (Vitamin C -) 500 mg PO DAILY [facility] Last Admin: 07/07/16 11:06 Dose: 500 mg Atorvastatin Calcium (Lipitor -) 10 mg PO HS [facility] Last Admin: 07/06/16 22:01 Dose: 10 mg Collagenase (Santyl -) 1 applic TP DAILY [facility] Last Admin: 07/07/16 11:09 Dose: 1 applic Dronabinol (Marinol -) 2.5 mg PO BID [facility] Last Admin: 07/07/16 11:07 Dose: 2.5 mg Finasteride (Proscar -) 5 mg PO DAILY [facility] Last Admin: 07/07/16 11:07 Dose: 5 mg Haloperidol (Haldol Injection (Fast Acting) -) 2 mg IM Q4H PRN PRN Reason: AGITATION Last Admin: 06/22/16 02:19 Dose: 2 mg Lactobacillus Acidophilus (Bacid -) 1 tab PO DAILY [facility] Last Admin: 07/07/16 11:06 Dose: 1 tab Magnesium Oxide (Mag-Ox -) 400 mg PO BID [facility] Last Admin: 07/07/16 11:07 Dose: 400 mg Metoprolol Succinate (Toprol Xl -) 25 mg PO DAILY [facility] Last Admin: 07/07/16 11:08 Dose: 25 mg Neomycin/Polymyxin/Bacitracin (Neosporin Topical Ointment -) 1 applic TP BID [facility] Last Admin: 07/07/16 11:08 Dose: 1 applic Nystatin/Triamcinolone Acetonide (Mycolog Ii Cream -) 1 applic TP BID [facility] Last Admin: 07/07/16 11:09 Dose: 1 applic Pantoprazole Sodium (Protonix -) 40 mg PO DAILY [facility] Last Admin: 07/07/16 11:07 Dose: 40 mg Potassium Chloride (K-Dur -) 20 meq PO DAILY [facility] Last Admin: 07/07/16 11:07 Dose: 20 meq Potassium Phos/Sodium Phos (Phos-Nak Packet -) 1 packet PO BID [facility] Last Admin: 07/07/16 11:07 Dose: 1 packet Tamsulosin HCl (Flomax -) 0.4 mg PO [facility] Last Admin: 07/06/16 22:00 Dose: 0.4 mg Trazodone HCl (Desyrel -) 37.5 mg PO [facility] Last Admin: 07/06/16 22:00 Dose: 37.5 mg - Objective Vital Signs: Vital Signs Temperature 97.4 F L 07/07/16 06:22 Pulse Rate 65 07/07/16 06:22 Respiratory Rate 20 07/07/16 06:22 Blood Pressure 145/78 07/07/16 06:22 O2 Sat by Pulse Oximetry (%) 98 07/06/16 09:00 Constitutional: Yes: No Distress, Calm Cardiovascular: Yes: S1, S2 Respiratory: Yes: Regular, CTA Bilaterally Gastrointestinal: Yes: Normal Bowel Sounds, Soft Genitourinary: Yes: [place] Present Musculoskeletal: Yes: WNL Extremities: Yes: WNL Neurological: Yes: Alert, Other Psychiatric: Yes: Other Labs: CBC, BMP 07/03/16 06:30 07/03/16 06:30 INR, PTT INR 1.18 (0.82-1.09) H 06/20/16 15:00 Assessment/Plan Problem List - Problems (1) Sepsis Code(s): A41.9 - SEPSIS, UNSPECIFIED ORGANISM Qualifiers: Sepsis type: sepsis due to unspecified organism Qualified Code(s): A41.9 - Sepsis, unspecified organism (2) UTI (urinary tract infection) Code(s): N39.0 - URINARY TRACT INFECTION, SITE NOT SPECIFIED Qualifiers: Urinary tract infection type: acute cystitis Hematuria presence: with hematuria Qualified Code(s): N30.01 - Acute cystitis with hematuria (3) Lactic acid acidosis Code(s): E87.2 - ACIDOSIS (4) Metabolic encephalopathy Code(s): G93.41 - METABOLIC ENCEPHALOPATHY (5) HTN (hypertension) Code(s): I10 - ESSENTIAL (PRIMARY) HYPERTENSION (6) Dementia Code(s): F03.90 - UNSPECIFIED DEMENTIA WITHOUT BEHAVIORAL DISTURBANCE 7 gram positive bacteremia plan continue current mgmt rest as per primary team no new issues awaiting placement
[2016-07-07] MEDS: traZODone HCL 50 MG TABLET (FP) PO SCH (21:02)
[2016-07-07] MEDS: ATORVASTATIN CA 10 MG TABLET (FP) PO SCH (21:03)
[2016-07-07] MEDS: TAMSULOSIN HCL 0.4 MG CAP.ER.24H (FP) PO SCH (21:03)
--- NOTE | 2016-07-08 08:26 | PN ---
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 (short form) - Note 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: No acute event overnight. PO intake good. Denies chest pain, shortness of breath, palpitation or dizziness. Afebrile. O/E Vital Signs Period Temp Pulse Resp BP Sys/Kerr Pulse Ox Last 24 Hr 97.5 F-98.3 F 62-72 18-20 124-142/65-72 100-100 Heart regular Lungs clear Abd soft Ext no edema Current Medications Acetaminophen (Tylenol -) 650 mg PO Q4H PRN PRN Reason: FEVER OR PAIN Last Admin: 07/05/16 11:38 Dose: 650 mg Ascorbic Acid (Vitamin C -) 500 mg PO DAILY [facility] Last Admin: 07/06/16 09:44 Dose: 500 mg Atorvastatin Calcium (Lipitor -) 10 mg PO HS [facility] Last Admin: 07/05/16 21:30 Dose: 10 mg Collagenase (Santyl -) 1 applic TP DAILY [facility] Last Admin: 07/06/16 09:45 Dose: 1 applic Dronabinol (Marinol -) 2.5 mg PO BID [facility] Last Admin: 07/06/16 09:44 Dose: 2.5 mg Finasteride (Proscar -) 5 mg PO DAILY [facility] Last Admin: 07/06/16 09:44 Dose: 5 mg Haloperidol (Haldol Injection (Fast Acting) -) 2 mg IM Q4H PRN PRN Reason: AGITATION Last Admin: 06/22/16 02:19 Dose: 2 mg Lactobacillus Acidophilus (Bacid -) 1 tab PO DAILY [facility] Last Admin: 07/06/16 09:44 Dose: 1 tab Magnesium Oxide (Mag-Ox -) 400 mg PO BID [facility] Last Admin: 07/06/16 09:44 Dose: 400 mg Metoprolol Succinate (Toprol Xl -) 25 mg PO DAILY [facility] Last Admin: 07/06/16 09:44 Dose: 25 mg Neomycin/Polymyxin/Bacitracin (Neosporin Topical Ointment -) 1 applic TP BID [facility] Last Admin: 07/06/16 09:45 Dose: 1 applic Nystatin/Triamcinolone Acetonide (Mycolog Ii Cream -) 1 applic TP BID [facility] Last Admin: 07/06/16 09:45 Dose: 1 applic Pantoprazole Sodium (Protonix -) 40 mg PO DAILY [facility] Last Admin: 07/06/16 09:44 Dose: 40 mg Potassium Chloride (K-Dur -) 20 meq PO DAILY [facility] Last Admin: 07/06/16 09:44 Dose: 20 meq Potassium Phos/Sodium Phos (Phos-Nak Packet -) 1 packet PO BID [facility] Last Admin: 07/06/16 09:45 Dose: 1 packet Tamsulosin HCl (Flomax -) 0.4 mg PO [facility] Last Admin: 07/05/16 21:30 Dose: 0.4 mg Trazodone HCl (Desyrel -) 37.5 mg PO HS [facility] Last Admin: 07/05/16 21:30 Dose: 37.5 mg CBC, BMP 07/03/16 06:30 07/03/16 06:30 A&P Assessment/Plan (1) Sepsis Code(s): A41.9 - SEPSIS, UNSPECIFIED ORGANISM Resolved Qualifiers: Sepsis type: sepsis due to unspecified organism Qualified Code(s): A41.9 - Sepsis, unspecified organism (2) UTI (urinary tract infection) Code(s): N39.0 - URINARY TRACT INFECTION, SITE NOT SPECIFIED Afebrile Qualifiers: Urinary tract infection type: acute cystitis Hematuria presence: with hematuria Qualified Code(s): N30.01 - Acute cystitis with hematuria Resolved (3) Metabolic encephalopathy Code(s): G93.41 - METABOLIC ENCEPHALOPATHY stable (4) HTN (hypertension) Code(s): I10 - ESSENTIAL (PRIMARY) HYPERTENSION Controlled (5) Dementia Code(s): F03.90 - UNSPECIFIED DEMENTIA WITHOUT BEHAVIORAL DISTURBANCE Awaiting discharge planning and placement
[2016-07-08] MEDS: DRONABINOL 2.5 MG CAPSULE PO SCH ×2 (10:27→22:00)
[2016-07-08] MEDS: LACTOBACILLUS ACIDOPHILUS 1 EACH TAB (FP) PO SCH (10:27)
[2016-07-08] MEDS: METOPROLOL SUCCINATE 25 MG TAB.SR.24H (FP) PO SCH (10:27)
[2016-07-08] MEDS: MAGNESIUM OXIDE 400 MG TABLET (FP) PO SCH ×2 (10:27→21:59)
[2016-07-08] MEDS: ASCORBIC ACID 500 MG TABLET (FP) PO SCH (10:27)
[2016-07-08] MEDS: PANTOPRAZOLE 40 MG TABLET (FP) PO SCH (10:27)
[2016-07-08] MEDS: FINASTERIDE 5 MG TABLET (FP) PO SCH (10:27)
[2016-07-08] MEDS: POTASSIUM CHLORIDE TABS 20 MEQ TABLET.ER (FP) PO SCH (10:28)
[2016-07-08] MEDS: NEOMYCIN/POLYMYXIN/BACITRACIN (TRIPLE ANTIBIOTIC) 28 GM OINTMENT TP SCH ×2 (10:28→22:00)
[2016-07-08] MEDS: NAPH,MB-DB/K PH,MBDB POWDER PACKET PO SCH ×2 (10:28→22:00)
[2016-07-08] MEDS: NYSTATIN/TRIAMCINOLONE TOPICAL CREAM 15 GM TUBE TP SCH ×2 (10:30→22:00)
[2016-07-08] MEDS: COLLAGENASE CLOSTRIDIUM HIST. 30 GRAMS TUBE TP SCH (10:30)
--- NOTE | 2016-07-08 13:02 | PN ---
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 (short form) - Note 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: s: awake, appears comfortable, no overnight events, not communicative today o: Vital Signs Period Temp Pulse Resp BP Sys/Ekrr Pulse Ox Last 24 Hr 97.5 F-98.3 F 62-72 18-20 124-142/65-72 100-100 awake, nad, cachectic jvd flat, neck supple ctabl, poor effort rrr, nl s1, s2 no mrg ext without e/c/c alert but not non-verbal no jaundice, diaphoresis Current Medications Generic Name Dose Route Start Last Admin Trade Name Freq PRN Reason Stop Dose Admin Acetaminophen 650 mg 06/12/16 10:27 07/07/16 12:11 Tylenol - PO 650 mg Q4H PRN Administration FEVER OR PAIN Ascorbic Acid 500 mg 06/11/16 10:00 07/08/16 10:27 Vitamin C - PO 500 mg DAILY CORNELIO Administration Atorvastatin Calcium 10 mg 06/10/16 22:00 07/07/16 21:03 Lipitor - PO 10 mg HS CORNELIO Administration Collagenase 1 applic 06/11/16 10:00 07/08/16 10:30 Santyl - TP 1 applic DAILY CORNELIO Administration Dronabinol 2.5 mg 06/30/16 22:00 07/08/16 10:27 Marinol - PO 2.5 mg BID CORNELIO Administration Finasteride 5 mg 06/11/16 10:00 07/08/16 10:27 Proscar - PO 5 mg DAILY CORNELIO Administration Haloperidol 2 mg 06/10/16 12:29 06/22/16 02:19 Haldol Injection (Fast Acting) - IM 2 mg Q4H PRN Administration AGITATION Lactobacillus Acidophilus 1 tab 06/11/16 10:00 07/08/16 10:27 Bacid - PO 1 tab DAILY CORNELIO Administration Magnesium Oxide 400 mg 06/16/16 12:30 07/08/16 10:27 Mag-Ox - PO 400 mg BID CORNELIO Administration Metoprolol Succinate 25 mg 06/10/16 19:12 07/08/16 10:27 Toprol Xl - PO 25 mg DAILY CORNELIO Administration Neomycin/Polymyxin/Bacitracin 1 applic 06/27/16 22:00 07/08/16 10:28 Neosporin Topical Ointment - TP 1 applic BID CORNELIO Administration Nystatin/Triamcinolone Acetonide 1 applic 06/19/16 22:00 07/08/16 10:30 Mycolog Ii Cream - TP 1 applic BID CORNELIO Administration Pantoprazole Sodium 40 mg 06/11/16 10:00 07/08/16 10:27 Protonix - PO 40 mg DAILY CORNELIO Administration Potassium Chloride 20 meq 06/27/16 10:00 07/08/16 10:28 K-Dur - PO 20 meq DAILY CORNELIO Administration Potassium Phos/Sodium Phos 1 packet 06/16/16 12:30 07/08/16 10:28 Phos-Nak Packet - PO 1 packet BID CORNELIO Administration Tamsulosin HCl 0.4 mg 06/10/16 22:00 07/07/16 21:03 Flomax - PO 0.4 mg HS CORNELIO Administration Trazodone HCl 37.5 mg 06/10/16 22:00 07/07/16 21:02 Desyrel - PO 37.5 mg HS CORNELIO Administration CBC, BMP 07/03/16 06:30 07/03/16 06:30 EKG 06/10 12:21: uninterpretable due to baseline artifact EKG 06/10 14:46 Poor quality/baseline. Sinus tach with diffuse ST abnormalities. anterior ST sagging. possible inferior q waves. low limb voltages. abd CT: fecal retention, sacral decub with surrounding subcut air/abscess a/p: 80 yo with h/o htn, bph, advanced dementia who sent to ER for hematuria and noted to have UTI with sepsis complicated by elevated cardiac enzymes. positive trops: - borderline trop elevation with flat trend and low ck index, not consistent with acs, likely related to likely demand in setting of infection and tachycardia. - started low dose atorvastatin while here - cont metoprolol - not on asa due to hematuria - echo done here this admit was non-diagnostic due to pt agitation/lack of cooperation htn - remains well controlled on bb sepsis/uti/hematuria - resolved, awaiting placement now, mgm't per pmd/urology/ID
--- NOTE | 2016-07-08 14:26 | PN ---
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, Physician History of Present Illness: stable no new issues - Current Medication List Current Medications: Active Medications Acetaminophen (Tylenol -) 650 mg PO Q4H PRN PRN Reason: FEVER OR PAIN Last Admin: 07/07/16 12:11 Dose: 650 mg Ascorbic Acid (Vitamin C -) 500 mg PO DAILY [facility] Last Admin: 07/08/16 10:27 Dose: 500 mg Atorvastatin Calcium (Lipitor -) 10 mg PO HS [facility] Last Admin: 07/07/16 21:03 Dose: 10 mg Collagenase (Santyl -) 1 applic TP DAILY [facility] Last Admin: 07/08/16 10:30 Dose: 1 applic Dronabinol (Marinol -) 2.5 mg PO BID [facility] Last Admin: 07/08/16 10:27 Dose: 2.5 mg Finasteride (Proscar -) 5 mg PO DAILY [facility] Last Admin: 07/08/16 10:27 Dose: 5 mg Haloperidol (Haldol Injection (Fast Acting) -) 2 mg IM Q4H PRN PRN Reason: AGITATION Last Admin: 06/22/16 02:19 Dose: 2 mg Lactobacillus Acidophilus (Bacid -) 1 tab PO DAILY [facility] Last Admin: 07/08/16 10:27 Dose: 1 tab Magnesium Oxide (Mag-Ox -) 400 mg PO BID [facility] Last Admin: 07/08/16 10:27 Dose: 400 mg Metoprolol Succinate (Toprol Xl -) 25 mg PO DAILY [facility] Last Admin: 07/08/16 10:27 Dose: 25 mg Neomycin/Polymyxin/Bacitracin (Neosporin Topical Ointment -) 1 applic TP BID [facility] Last Admin: 07/08/16 10:28 Dose: 1 applic Nystatin/Triamcinolone Acetonide (Mycolog Ii Cream -) 1 applic TP BID [facility] Last Admin: 07/08/16 10:30 Dose: 1 applic Pantoprazole Sodium (Protonix -) 40 mg PO DAILY [facility] Last Admin: 07/08/16 10:27 Dose: 40 mg Potassium Chloride (K-Dur -) 20 meq PO DAILY [facility] Last Admin: 07/08/16 10:28 Dose: 20 meq Potassium Phos/Sodium Phos (Phos-Nak Packet -) 1 packet PO BID [facility] Last Admin: 07/08/16 10:28 Dose: 1 packet Tamsulosin HCl (Flomax -) 0.4 mg PO HS [facility] Last Admin: 07/07/16 21:03 Dose: 0.4 mg Trazodone HCl (Desyrel -) 37.5 mg PO [facility] Last Admin: 07/07/16 21:02 Dose: 37.5 mg - Objective Vital Signs: Vital Signs Temperature 98.3 F 07/08/16 06:26 Pulse Rate 72 07/08/16 06:26 Respiratory Rate 20 07/08/16 06:26 Blood Pressure 142/67 07/08/16 06:26 O2 Sat by Pulse Oximetry (%) 100 07/08/16 09:00 Constitutional: Yes: No Distress, Calm Cardiovascular: Yes: S1, S2 Respiratory: Yes: Regular, CTA Bilaterally Gastrointestinal: Yes: Normal Bowel Sounds, Soft Genitourinary: Yes: [place] Present Musculoskeletal: Yes: WNL Extremities: Yes: WNL Neurological: Yes: Alert, Other Labs: CBC, BMP 07/03/16 06:30 07/03/16 06:30 INR, PTT INR 1.18 (0.82-1.09) H 06/20/16 15:00 Assessment/Plan Problem List - Problems (1) Sepsis Code(s): A41.9 - SEPSIS, UNSPECIFIED ORGANISM Qualifiers: Sepsis type: sepsis due to unspecified organism Qualified Code(s): A41.9 - Sepsis, unspecified organism (2) UTI (urinary tract infection) Code(s): N39.0 - URINARY TRACT INFECTION, SITE NOT SPECIFIED Qualifiers: Urinary tract infection type: acute cystitis Hematuria presence: with hematuria Qualified Code(s): N30.01 - Acute cystitis with hematuria (3) Lactic acid acidosis Code(s): E87.2 - ACIDOSIS (4) Metabolic encephalopathy Code(s): G93.41 - METABOLIC ENCEPHALOPATHY (5) HTN (hypertension) Code(s): I10 - ESSENTIAL (PRIMARY) HYPERTENSION (6) Dementia Code(s): F03.90 - UNSPECIFIED DEMENTIA WITHOUT BEHAVIORAL DISTURBANCE 7 gram positive bacteremia plan stable continue current mgmt
[2016-07-08] MEDS: ATORVASTATIN CA 10 MG TABLET (FP) PO SCH (21:59)
[2016-07-08] MEDS: traZODone HCL 50 MG TABLET (FP) PO SCH (21:59)
[2016-07-08] MEDS: TAMSULOSIN HCL 0.4 MG CAP.ER.24H (FP) PO SCH (21:59)
[2016-07-09 07:58] LABS: BASOPHIL 0.4 % (0-2.0); EOSINOPHIL 3.7 % (0-4.5); MCH 28.1 pg (25.7-33.7); MCHC 32.6 g/dl (32.0-35.9); MEAN CELL VOLUME 86.1 fl (80-96); MEAN PLT VOLUME 8.5 fl (7.5-11.1); PLATELET COUNT 171 K/MM3 (134-434); RDW 18.7 % (11.9-15.9); WHITE BLOOD COUNT 7.3 K/mm3 (4.0-10.0)
[2016-07-09 08:25] LABS: CALCIUM 8.2 mg/dL (8.5-10.1); COCKROFT - GAULT 112.21; CREATININE 0.5 mg/dL (0.7-1.3)
--- NOTE | 2016-07-09 08:30 | PN ---
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 (short form) - Note 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: No complaints Denies chest pain, shortness of breath, palpitation or dizzine O/E Vital Signs Period Temp Pulse Resp BP Sys/Kerr Pulse Ox Last 24 Hr 97.9 F-98.6 F 61-72 18-20 104-150/55-71 100-100 Heart regular Lungs clear Abd soft Ext no edema Current Medications Acetaminophen (Tylenol -) 650 mg PO Q4H PRN PRN Reason: FEVER OR PAIN Last Admin: 07/05/16 11:38 Dose: 650 mg Ascorbic Acid (Vitamin C -) 500 mg PO DAILY [facility] Last Admin: 07/06/16 09:44 Dose: 500 mg Atorvastatin Calcium (Lipitor -) 10 mg PO HS [facility] Last Admin: 07/05/16 21:30 Dose: 10 mg Collagenase (Santyl -) 1 applic TP DAILY [facility] Last Admin: 07/06/16 09:45 Dose: 1 applic Dronabinol (Marinol -) 2.5 mg PO BID [facility] Last Admin: 07/06/16 09:44 Dose: 2.5 mg Finasteride (Proscar -) 5 mg PO DAILY [facility] Last Admin: 07/06/16 09:44 Dose: 5 mg Haloperidol (Haldol Injection (Fast Acting) -) 2 mg IM Q4H PRN PRN Reason: AGITATION Last Admin: 06/22/16 02:19 Dose: 2 mg Lactobacillus Acidophilus (Bacid -) 1 tab PO DAILY [facility] Last Admin: 07/06/16 09:44 Dose: 1 tab Magnesium Oxide (Mag-Ox -) 400 mg PO BID [facility] Last Admin: 07/06/16 09:44 Dose: 400 mg Metoprolol Succinate (Toprol Xl -) 25 mg PO DAILY [facility] Last Admin: 07/06/16 09:44 Dose: 25 mg Neomycin/Polymyxin/Bacitracin (Neosporin Topical Ointment -) 1 applic TP BID [facility] Last Admin: 07/06/16 09:45 Dose: 1 applic Nystatin/Triamcinolone Acetonide (Mycolog Ii Cream -) 1 applic TP BID [facility] Last Admin: 07/06/16 09:45 Dose: 1 applic Pantoprazole Sodium (Protonix -) 40 mg PO DAILY [facility] Last Admin: 07/06/16 09:44 Dose: 40 mg Potassium Chloride (K-Dur -) 20 meq PO DAILY [facility] Last Admin: 07/06/16 09:44 Dose: 20 meq Potassium Phos/Sodium Phos (Phos-Nak Packet -) 1 packet PO BID [facility] Last Admin: 07/06/16 09:45 Dose: 1 packet Tamsulosin HCl (Flomax -) 0.4 mg PO HS [facility] Last Admin: 07/05/16 21:30 Dose: 0.4 mg Trazodone HCl (Desyrel -) 37.5 mg PO HS [facility] Last Admin: 07/05/16 21:30 Dose: 37.5 mg CBC, BMP 07/09/16 06:30 A&P Assessment/Plan (1) Sepsis Code(s): A41.9 - SEPSIS, UNSPECIFIED ORGANISM Resolved Qualifiers: Sepsis type: sepsis due to unspecified organism Qualified Code(s): A41.9 - Sepsis, unspecified organism (2) UTI (urinary tract infection) Code(s): N39.0 - URINARY TRACT INFECTION, SITE NOT SPECIFIED Afebrile Qualifiers: Urinary tract infection type: acute cystitis Hematuria presence: with hematuria Qualified Code(s): N30.01 - Acute cystitis with hematuria Resolved (3) Metabolic encephalopathy Code(s): G93.41 - METABOLIC ENCEPHALOPATHY stable (4) HTN (hypertension) Code(s): I10 - ESSENTIAL (PRIMARY) HYPERTENSION Controlled (5) Dementia Code(s): F03.90 - UNSPECIFIED DEMENTIA WITHOUT BEHAVIORAL DISTURBANCE Awaiting discharge planning and placement
[2016-07-09] MEDS: DRONABINOL 2.5 MG CAPSULE PO SCH ×2 (10:33→21:17)
[2016-07-09] MEDS: ASCORBIC ACID 500 MG TABLET (FP) PO SCH (10:33)
[2016-07-09] MEDS: MAGNESIUM OXIDE 400 MG TABLET (FP) PO SCH ×2 (10:33→21:17)
[2016-07-09] MEDS: METOPROLOL SUCCINATE 25 MG TAB.SR.24H (FP) PO SCH (10:33)
[2016-07-09] MEDS: LACTOBACILLUS ACIDOPHILUS 1 EACH TAB (FP) PO SCH (10:33)
[2016-07-09] MEDS: PANTOPRAZOLE 40 MG TABLET (FP) PO SCH (10:33)
[2016-07-09] MEDS: POTASSIUM CHLORIDE TABS 20 MEQ TABLET.ER (FP) PO SCH (10:33)
[2016-07-09] MEDS: NYSTATIN/TRIAMCINOLONE TOPICAL CREAM 15 GM TUBE TP SCH ×2 (10:34→21:17)
[2016-07-09] MEDS: NEOMYCIN/POLYMYXIN/BACITRACIN (TRIPLE ANTIBIOTIC) 28 GM OINTMENT TP SCH ×2 (10:35→21:17)
[2016-07-09] MEDS: COLLAGENASE CLOSTRIDIUM HIST. 30 GRAMS TUBE TP SCH (10:36)
[2016-07-09] MEDS: NAPH,MB-DB/K PH,MBDB POWDER PACKET PO SCH ×2 (10:36→21:17)
--- NOTE | 2016-07-09 12:35 | PN ---
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 (short form) - Note 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: s: awake, appears comfortable, no overnight events, denies any cp pain/sob o: Vital Signs Period Temp Pulse Resp BP Sys/Kerr Pulse Ox Last 24 Hr 97.9 F-98.6 F 61-66 18-20 104-150/55-71 100 awake, nad, cachectic jvd flat, neck supple ctabl, poor effort rrr, nl s1, s2 no mrg ext without e/c/c alert no jaundice, diaphoresis Current Medications Generic Name Dose Route Start Last Admin Trade Name Freq PRN Reason Stop Dose Admin Acetaminophen 650 mg 06/12/16 10:27 07/07/16 12:11 Tylenol - PO 650 mg Q4H PRN Administration FEVER OR PAIN Ascorbic Acid 500 mg 06/11/16 10:00 07/09/16 10:33 Vitamin C - PO 500 mg DAILY CORNELIO Administration Atorvastatin Calcium 10 mg 06/10/16 22:00 07/08/16 21:59 Lipitor - PO 10 mg HS CORNELIO Administration Collagenase 1 applic 06/11/16 10:00 07/09/16 10:36 Santyl - TP 1 applic DAILY [facility]IO Administration Dronabinol 2.5 mg 06/30/16 22:00 07/09/16 10:33 Marinol - PO 2.5 mg BID CORNELIO Administration Finasteride 5 mg 06/11/16 10:00 07/08/16 10:27 Proscar - PO 5 mg DAILY CORN[facility]IO Administration Haloperidol 2 mg 06/10/16 12:29 06/22/16 02:19 Haldol Injection (Fast Acting) - IM 2 mg Q4H PRN Administration AGITATION Lactobacillus Acidophilus 1 tab 06/11/16 10:00 07/09/16 10:33 Bacid - PO 1 tab DAILY CORNELIO Administration Magnesium Oxide 400 mg 06/16/16 12:30 07/09/16 10:33 Mag-Ox - PO 400 mg BID CORNELIO Administration Metoprolol Succinate 25 mg 06/10/16 19:12 07/09/16 10:33 Toprol Xl - PO 25 mg DAILY CORNELIO Administration Neomycin/Polymyxin/Bacitracin 1 applic 06/27/16 22:00 07/09/16 10:35 Neosporin Topical Ointment - TP 1 applic BID CORNELIO Administration Nystatin/Triamcinolone Acetonide 1 applic 06/19/16 22:00 07/09/16 10:34 Mycolog Ii Cream - TP 1 applic BID CORNELIO Administration Pantoprazole Sodium 40 mg 06/11/16 10:00 07/09/16 10:33 Protonix - PO 40 mg DAILY CORNELIO Administration Potassium Chloride 20 meq 06/27/16 10:00 07/09/16 10:33 K-Dur - PO 20 meq DAILY CORN[facility]IO Administration Potassium Phos/Sodium Phos 1 packet 06/16/16 12:30 07/09/16 10:36 Phos-Nak Packet - PO 1 packet BID CORNELIO Administration Tamsulosin HCl 0.4 mg 06/10/16 22:00 07/08/16 21:59 Flomax - PO 0.4 mg HS CORN[facility]IO Administration Trazodone HCl 37.5 mg 06/10/16 22:00 07/08/16 21:59 Desyrel - PO 37.5 mg HS CORNELIO Administration CBC, BMP 07/09/16 06:30 07/09/16 06:30 EKG 06/10 12:21: uninterpretable due to baseline artifact EKG 06/10 14:46 Poor quality/baseline. Sinus tach with diffuse ST abnormalities. anterior ST sagging. possible inferior q waves. low limb voltages. abd CT: fecal retention, sacral decub with surrounding subcut air/abscess a/p: 80 yo with h/o htn, bph, advanced dementia who sent to ER for hematuria and noted to have UTI with sepsis complicated by elevated cardiac enzymes. positive trops: - borderline trop elevation with flat trend and low ck index, not consistent with acs, likely related to likely demand in setting of infection and tachycardia. - started low dose atorvastatin while here - cont metoprolol - not on asa due to hematuria - echo done here this admit was non-diagnostic due to pt agitation/lack of cooperation htn - remains well controlled on bb sepsis/uti/hematuria - resolved, awaiting placement now, mgm't per pmd/urology/ID
[2016-07-09] MEDS: FINASTERIDE 5 MG TABLET (FP) PO SCH (12:59)
--- NOTE | 2016-07-09 13:09 | PN ---
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, Physician History of Present Illness: stable no issues awaiting placement - Current Medication List Current Medications: Active Medications Acetaminophen (Tylenol -) 650 mg PO Q4H PRN PRN Reason: FEVER OR PAIN Last Admin: 07/07/16 12:11 Dose: 650 mg Ascorbic Acid (Vitamin C -) 500 mg PO DAILY [facility] Last Admin: 07/09/16 10:33 Dose: 500 mg Atorvastatin Calcium (Lipitor -) 10 mg PO HS [facility] Last Admin: 07/08/16 21:59 Dose: 10 mg Collagenase (Santyl -) 1 applic TP DAILY [facility] Last Admin: 07/09/16 10:36 Dose: 1 applic Dronabinol (Marinol -) 2.5 mg PO BID [facility] Last Admin: 07/09/16 10:33 Dose: 2.5 mg Finasteride (Proscar -) 5 mg PO DAILY [facility] Last Admin: 07/09/16 12:59 Dose: 5 mg Haloperidol (Haldol Injection (Fast Acting) -) 2 mg IM Q4H PRN PRN Reason: AGITATION Last Admin: 06/22/16 02:19 Dose: 2 mg Lactobacillus Acidophilus (Bacid -) 1 tab PO DAILY [facility] Last Admin: 07/09/16 10:33 Dose: 1 tab Magnesium Oxide (Mag-Ox -) 400 mg PO BID [facility] Last Admin: 07/09/16 10:33 Dose: 400 mg Metoprolol Succinate (Toprol Xl -) 25 mg PO DAILY [facility] Last Admin: 07/09/16 10:33 Dose: 25 mg Neomycin/Polymyxin/Bacitracin (Neosporin Topical Ointment -) 1 applic TP BID [facility] Last Admin: 07/09/16 10:35 Dose: 1 applic Nystatin/Triamcinolone Acetonide (Mycolog Ii Cream -) 1 applic TP BID [facility] Last Admin: 07/09/16 10:34 Dose: 1 applic Pantoprazole Sodium (Protonix -) 40 mg PO DAILY [facility] Last Admin: 07/09/16 10:33 Dose: 40 mg Potassium Chloride (K-Dur -) 20 meq PO DAILY [facility] Last Admin: 07/09/16 10:33 Dose: 20 meq Potassium Phos/Sodium Phos (Phos-Nak Packet -) 1 packet PO BID [facility] Last Admin: 07/09/16 10:36 Dose: 1 packet Tamsulosin HCl (Flomax -) 0.4 mg PO HS [facility] Last Admin: 07/08/16 21:59 Dose: 0.4 mg Trazodone HCl (Desyrel -) 37.5 mg PO [facility] Last Admin: 07/08/16 21:59 Dose: 37.5 mg - Objective Vital Signs: Vital Signs Temperature 97.9 F 07/09/16 05:59 Pulse Rate 62 07/09/16 05:59 Respiratory Rate 20 07/09/16 05:59 Blood Pressure 104/68 07/09/16 05:59 O2 Sat by Pulse Oximetry (%) 100 07/08/16 21:00 Constitutional: Yes: No Distress, Calm Cardiovascular: Yes: S1, S2 Respiratory: Yes: Regular, CTA Bilaterally Gastrointestinal: Yes: Normal Bowel Sounds, Soft Genitourinary: Yes: [place] Present Musculoskeletal: Yes: WNL Extremities: Yes: WNL Neurological: Yes: Alert, Other Labs: CBC, BMP 07/09/16 06:30 07/09/16 06:30 INR, PTT INR 1.18 (0.82-1.09) H 06/20/16 15:00 Assessment/Plan Problem List - Problems (1) Sepsis Code(s): A41.9 - SEPSIS, UNSPECIFIED ORGANISM Qualifiers: Sepsis type: sepsis due to unspecified organism Qualified Code(s): A41.9 - Sepsis, unspecified organism (2) UTI (urinary tract infection) Code(s): N39.0 - URINARY TRACT INFECTION, SITE NOT SPECIFIED Qualifiers: Urinary tract infection type: acute cystitis Hematuria presence: with hematuria Qualified Code(s): N30.01 - Acute cystitis with hematuria (3) Lactic acid acidosis Code(s): E87.2 - ACIDOSIS (4) Metabolic encephalopathy Code(s): G93.41 - METABOLIC ENCEPHALOPATHY (5) HTN (hypertension) Code(s): I10 - ESSENTIAL (PRIMARY) HYPERTENSION (6) Dementia Code(s): F03.90 - UNSPECIFIED DEMENTIA WITHOUT BEHAVIORAL DISTURBANCE 7 gram positive bacteremia plan stable continue current mgmt
[2016-07-09] MEDS: ACETAMINOPHEN 325 MG TABLET (FP) PO PRN (17:48)
[2016-07-09] MEDS: TAMSULOSIN HCL 0.4 MG CAP.ER.24H (FP) PO SCH (21:16)
[2016-07-09] MEDS: traZODone HCL 50 MG TABLET (FP) PO SCH (21:16)
[2016-07-09] MEDS: ATORVASTATIN CA 10 MG TABLET (FP) PO SCH (21:17)
[2016-07-10] MEDS: ACETAMINOPHEN 325 MG TABLET (FP) PO PRN ×2 (05:55→13:10)
[2016-07-10] MEDS: DRONABINOL 2.5 MG CAPSULE PO SCH ×2 (09:13→22:05)
[2016-07-10] MEDS: MAGNESIUM OXIDE 400 MG TABLET (FP) PO SCH ×2 (09:13→22:06)
[2016-07-10] MEDS: POTASSIUM CHLORIDE TABS 20 MEQ TABLET.ER (FP) PO SCH (09:13)
[2016-07-10] MEDS: LACTOBACILLUS ACIDOPHILUS 1 EACH TAB (FP) PO SCH (09:13)
[2016-07-10] MEDS: NYSTATIN/TRIAMCINOLONE TOPICAL CREAM 15 GM TUBE TP SCH ×2 (09:13→22:06)
[2016-07-10] MEDS: FINASTERIDE 5 MG TABLET (FP) PO SCH (09:14)
[2016-07-10] MEDS: NEOMYCIN/POLYMYXIN/BACITRACIN (TRIPLE ANTIBIOTIC) 28 GM OINTMENT TP SCH ×2 (09:14→22:07)
[2016-07-10] MEDS: NAPH,MB-DB/K PH,MBDB POWDER PACKET PO SCH ×2 (09:14→22:07)
[2016-07-10] MEDS: METOPROLOL SUCCINATE 25 MG TAB.SR.24H (FP) PO SCH (09:15)
[2016-07-10] MEDS: PANTOPRAZOLE 40 MG TABLET (FP) PO SCH (09:15)
[2016-07-10] MEDS: ASCORBIC ACID 500 MG TABLET (FP) PO SCH (09:15)
[2016-07-10] MEDS: COLLAGENASE CLOSTRIDIUM HIST. 30 GRAMS TUBE TP SCH (09:15)
--- NOTE | 2016-07-10 11:41 | PN ---
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 (short form) - Note 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: s: more awake today, sitting in chair, appears comfortable, no overnight events , denies any cp pain/sob o: Vital Signs Period Temp Pulse Resp BP Sys/Kerr Pulse Ox Last 24 Hr 97.7 F-98.4 F 62-66 18-20 104-148/43-73 100-100 awake, nad jvd flat, neck supple ctabl, poor effort rrr, nl s1, s2 no mrg ext without e/c/c alert no jaundice, diaphoresis Current Medications Generic Name Dose Route Start Last Admin Trade Name Freq PRN Reason Stop Dose Admin Acetaminophen 650 mg 06/12/16 10:27 07/10/16 05:55 Tylenol - PO 650 mg Q4H PRN Administration FEVER OR PAIN Ascorbic Acid 500 mg 06/11/16 10:00 07/10/16 09:15 Vitamin C - PO 500 mg DAILY [facility]IO Administration Atorvastatin Calcium 10 mg 06/10/16 22:00 07/09/16 21:17 Lipitor - PO 10 mg HS CORN[facility]IO Administration Collagenase 1 applic 06/11/16 10:00 07/10/16 09:15 Santyl - TP 1 applic DAILY [facility] Administration Dronabinol 2.5 mg 06/30/16 22:00 07/10/16 09:13 Marinol - PO 2.5 mg BID CORNELIO Administration Finasteride 5 mg 06/11/16 10:00 07/10/16 09:14 Proscar - PO 5 mg DAILY [facility] Administration Haloperidol 2 mg 06/10/16 12:29 06/22/16 02:19 Haldol Injection (Fast Acting) - IM 2 mg Q4H PRN Administration AGITATION Lactobacillus Acidophilus 1 tab 06/11/16 10:00 07/10/16 09:13 Bacid - PO 1 tab DAILY [facility]IO Administration Magnesium Oxide 400 mg 06/16/16 12:30 07/10/16 09:13 Mag-Ox - PO 400 mg BID CORN[facility]IO Administration Metoprolol Succinate 25 mg 06/10/16 19:12 07/10/16 09:15 Toprol Xl - PO 25 mg DAILY [facility] Administration Neomycin/Polymyxin/Bacitracin 1 applic 06/27/16 22:00 07/10/16 09:14 Neosporin Topical Ointment - TP 1 applic BID [facility]IO Administration Nystatin/Triamcinolone Acetonide 1 applic 06/19/16 22:00 07/10/16 09:13 Mycolog Ii Cream - TP 1 applic BID [facility]IO Administration Pantoprazole Sodium 40 mg 06/11/16 10:00 07/10/16 09:15 Protonix - PO 40 mg DAILY [facility] Administration Potassium Chloride 20 meq 06/27/16 10:00 07/10/16 09:13 K-Dur - PO 20 meq DAILY [facility] Administration Potassium Phos/Sodium Phos 1 packet 06/16/16 12:30 07/10/16 09:14 Phos-Nak Packet - PO 1 packet BID [facility] Administration Tamsulosin HCl 0.4 mg 06/10/16 22:00 07/09/16 21:16 Flomax - PO 0.4 mg HS [facility] Administration Trazodone HCl 37.5 mg 06/10/16 22:00 07/09/16 21:16 Desyrel - PO 37.5 mg HS [facility] Administration CBC, BMP 07/09/16 06:30 07/09/16 06:30 EKG 06/10 12:21: uninterpretable due to baseline artifact EKG 06/10 14:46 Poor quality/baseline. Sinus tach with diffuse ST abnormalities. anterior ST sagging. possible inferior q waves. low limb voltages. abd CT: fecal retention, sacral decub with surrounding subcut air/abscess a/p: 80 yo with h/o htn, bph, advanced dementia who sent to ER for hematuria and noted to have UTI with sepsis complicated by elevated cardiac enzymes. positive trops: - borderline trop elevation with flat trend and low ck index, not consistent with acs, likely related to likely demand in setting of infection and tachycardia. - started low dose atorvastatin while here - cont metoprolol - not on asa due to hematuria - echo done here this admit was non-diagnostic due to pt agitation/lack of cooperation - no chest pain symptoms htn - controlled on bb sepsis/uti/hematuria - resolved, awaiting placement now, mgm't per pmd/urology/ID
--- NOTE | 2016-07-10 12:08 | PN ---
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, Physician History of Present Illness: no new issues stable - Current Medication List Current Medications: Active Medications Acetaminophen (Tylenol -) 650 mg PO Q4H PRN PRN Reason: FEVER OR PAIN Last Admin: 07/10/16 05:55 Dose: 650 mg Ascorbic Acid (Vitamin C -) 500 mg PO DAILY [facility] Last Admin: 07/10/16 09:15 Dose: 500 mg Atorvastatin Calcium (Lipitor -) 10 mg PO HS [facility] Last Admin: 07/09/16 21:17 Dose: 10 mg Collagenase (Santyl -) 1 applic TP DAILY [facility] Last Admin: 07/10/16 09:15 Dose: 1 applic Dronabinol (Marinol -) 2.5 mg PO BID [facility] Last Admin: 07/10/16 09:13 Dose: 2.5 mg Finasteride (Proscar -) 5 mg PO DAILY [facility] Last Admin: 07/10/16 09:14 Dose: 5 mg Haloperidol (Haldol Injection (Fast Acting) -) 2 mg IM Q4H PRN PRN Reason: AGITATION Last Admin: 06/22/16 02:19 Dose: 2 mg Lactobacillus Acidophilus (Bacid -) 1 tab PO DAILY [facility] Last Admin: 07/10/16 09:13 Dose: 1 tab Magnesium Oxide (Mag-Ox -) 400 mg PO BID [facility] Last Admin: 07/10/16 09:13 Dose: 400 mg Metoprolol Succinate (Toprol Xl -) 25 mg PO DAILY [facility] Last Admin: 07/10/16 09:15 Dose: 25 mg Neomycin/Polymyxin/Bacitracin (Neosporin Topical Ointment -) 1 applic TP BID [facility] Last Admin: 07/10/16 09:14 Dose: 1 applic Nystatin/Triamcinolone Acetonide (Mycolog Ii Cream -) 1 applic TP BID [facility] Last Admin: 07/10/16 09:13 Dose: 1 applic Pantoprazole Sodium (Protonix -) 40 mg PO DAILY [facility] Last Admin: 07/10/16 09:15 Dose: 40 mg Potassium Chloride (K-Dur -) 20 meq PO DAILY [facility] Last Admin: 07/10/16 09:13 Dose: 20 meq Potassium Phos/Sodium Phos (Phos-Nak Packet -) 1 packet PO BID [facility] Last Admin: 07/10/16 09:14 Dose: 1 packet Tamsulosin HCl (Flomax -) 0.4 mg PO HS [facility] Last Admin: 07/09/16 21:16 Dose: 0.4 mg Trazodone HCl (Desyrel -) 37.5 mg PO [facility] Last Admin: 07/09/16 21:16 Dose: 37.5 mg - Objective Vital Signs: Vital Signs Temperature 99.0 F 07/10/16 11:44 Pulse Rate 62 07/10/16 08:57 Respiratory Rate 18 07/10/16 08:57 Blood Pressure 124/43 07/10/16 08:57 O2 Sat by Pulse Oximetry (%) 100 07/10/16 09:00 Constitutional: Yes: No Distress, Calm HENT: Yes: Atraumatic Cardiovascular: Yes: S1, S2 Respiratory: Yes: Regular, CTA Bilaterally Gastrointestinal: Yes: Normal Bowel Sounds, Soft Genitourinary: Yes: [place] Present Musculoskeletal: Yes: WNL Extremities: Yes: WNL Neurological: Yes: Alert, Other Labs: CBC, BMP 07/09/16 06:30 07/09/16 06:30 INR, PTT INR 1.18 (0.82-1.09) H 06/20/16 15:00
--- NOTE | 2016-07-10 12:17 | PN ---
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 (short form) - Note 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: No acute event since overnight. Afebrile. Denies chest pain, shortness of breath, palpitation or dizziness PO intake reasonable. O/E Vital Signs Period Temp Pulse Resp BP Sys/Kerr Pulse Ox Last 24 Hr 97.7 F-99.0 F 62-66 18-20 104-148/43-73 100-100 Heart regular Lungs clear Abd soft Ext no edema Current Medications Acetaminophen (Tylenol -) 650 mg PO Q4H PRN PRN Reason: FEVER OR PAIN Last Admin: 07/05/16 11:38 Dose: 650 mg Ascorbic Acid (Vitamin C -) 500 mg PO DAILY [facility] Last Admin: 07/06/16 09:44 Dose: 500 mg Atorvastatin Calcium (Lipitor -) 10 mg PO HS [facility] Last Admin: 07/05/16 21:30 Dose: 10 mg Collagenase (Santyl -) 1 applic TP DAILY [facility] Last Admin: 07/06/16 09:45 Dose: 1 applic Dronabinol (Marinol -) 2.5 mg PO BID [facility] Last Admin: 07/06/16 09:44 Dose: 2.5 mg Finasteride (Proscar -) 5 mg PO DAILY [facility] Last Admin: 07/06/16 09:44 Dose: 5 mg Haloperidol (Haldol Injection (Fast Acting) -) 2 mg IM Q4H PRN PRN Reason: AGITATION Last Admin: 06/22/16 02:19 Dose: 2 mg Lactobacillus Acidophilus (Bacid -) 1 tab PO DAILY [facility] Last Admin: 07/06/16 09:44 Dose: 1 tab Magnesium Oxide (Mag-Ox -) 400 mg PO BID [facility] Last Admin: 07/06/16 09:44 Dose: 400 mg Metoprolol Succinate (Toprol Xl -) 25 mg PO DAILY [facility] Last Admin: 07/06/16 09:44 Dose: 25 mg Neomycin/Polymyxin/Bacitracin (Neosporin Topical Ointment -) 1 applic TP BID [facility] Last Admin: 07/06/16 09:45 Dose: 1 applic Nystatin/Triamcinolone Acetonide (Mycolog Ii Cream -) 1 applic TP BID [facility] Last Admin: 07/06/16 09:45 Dose: 1 applic Pantoprazole Sodium (Protonix -) 40 mg PO DAILY [facility] Last Admin: 07/06/16 09:44 Dose: 40 mg Potassium Chloride (K-Dur -) 20 meq PO DAILY [facility] Last Admin: 07/06/16 09:44 Dose: 20 meq Potassium Phos/Sodium Phos (Phos-Nak Packet -) 1 packet PO BID [facility] Last Admin: 07/06/16 09:45 Dose: 1 packet Tamsulosin HCl (Flomax -) 0.4 mg PO [facility] Last Admin: 07/05/16 21:30 Dose: 0.4 mg Trazodone HCl (Desyrel -) 37.5 mg PO HS [facility] Last Admin: 07/05/16 21:30 Dose: 37.5 mg CBC, BMP 07/09/16 06:30 07/09/16 06:30 A&P Assessment/Plan (1) Sepsis Code(s): A41.9 - SEPSIS, UNSPECIFIED ORGANISM Resolved Qualifiers: Sepsis type: sepsis due to unspecified organism Qualified Code(s): A41.9 - Sepsis, unspecified organism (2) UTI (urinary tract infection) Code(s): N39.0 - URINARY TRACT INFECTION, SITE NOT SPECIFIED Afebrile Qualifiers: Urinary tract infection type: acute cystitis Hematuria presence: with hematuria Qualified Code(s): N30.01 - Acute cystitis with hematuria Resolved (3) Metabolic encephalopathy Code(s): G93.41 - METABOLIC ENCEPHALOPATHY stable (4) HTN (hypertension) Code(s): I10 - ESSENTIAL (PRIMARY) HYPERTENSION Controlled (5) Dementia Code(s): F03.90 - UNSPECIFIED DEMENTIA WITHOUT BEHAVIORAL DISTURBANCE Awaiting discharge planning and placement
[2016-07-10] MEDS: traZODone HCL 50 MG TABLET (FP) PO SCH (22:06)
[2016-07-10] MEDS: TAMSULOSIN HCL 0.4 MG CAP.ER.24H (FP) PO SCH (22:06)
[2016-07-10] MEDS: ATORVASTATIN CA 10 MG TABLET (FP) PO SCH (22:06)
--- NOTE | 2016-07-11 09:12 | PN ---
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 (short form) - Note 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: Patient seen and examined. Chart reviewed. Currently lying on his back supine and turning to left side in bed, alert and responsive at baseline mental status. Appears in no acute distress Denies any chest discomfort or other bodily pain. No apparent dyspnea. Labs and devops consultant notes reviewed. Selected Entries 07/10/16 07/11/16 21:00 06:00 Temperature 97.9 F Pulse Rate 61 Respiratory 18 Rate Blood Pressure 96/48 O2 Sat by Pulse 100 Oximetry (%) Oxygen Delivery Room Air Method Laboratory Tests 07/03/16 07/09/16 07/09/16 06:30 06:30 06:30 WBC 7.3 Hgb 10.2 L Hct 31.3 L Plt Count 171 Sodium 139 Potassium 4.6 Chloride 103 Carbon Dioxide 28 BUN 18 Creatinine 0.5 L Random Glucose 68 L Calcium 8.2 L Albumin 2.2 L Chest Clear Cor RRR Abdomen No tenderness No mass F/C in place Ext No edema No phlebitis Neuro No new focal deficit Confused Assessment and Plan Bacteremia Staph epi and Enterococcus faecalis On Rx as per ID Follow up blood culture negative UTI On Rx [place] catheter in place Dementia with superimposed toxic/metabolic encephalopathy Stable at baseline Anemia 9.7/29.9>>9.8/30.0>>10.2>>31.3 Likely multi-factorial with element of acute/chronic disease Monitor Hypoalbuminemia 2.3>>2.0>>2.2 likely related to acute/chronic disease as well as nutritional factors Corrected Calcium 9.06 Hypokalemia 3.5>>3.8>>4.6 Replete as needed Hypertension Monitor Hypernatremia Improved Continue current Rx Await placement decision
[2016-07-11] MEDS: MAGNESIUM OXIDE 400 MG TABLET (FP) PO SCH ×2 (09:14→22:02)
[2016-07-11] MEDS: PANTOPRAZOLE 40 MG TABLET (FP) PO SCH (09:14)
[2016-07-11] MEDS: FINASTERIDE 5 MG TABLET (FP) PO SCH (09:14)
[2016-07-11] MEDS: DRONABINOL 2.5 MG CAPSULE PO SCH ×2 (09:14→22:02)
[2016-07-11] MEDS: LACTOBACILLUS ACIDOPHILUS 1 EACH TAB (FP) PO SCH (09:14)
[2016-07-11] MEDS: ASCORBIC ACID 500 MG TABLET (FP) PO SCH (09:14)
[2016-07-11] MEDS: NYSTATIN/TRIAMCINOLONE TOPICAL CREAM 15 GM TUBE TP SCH ×2 (09:15→22:03)
[2016-07-11] MEDS: METOPROLOL SUCCINATE 25 MG TAB.SR.24H (FP) PO SCH (09:15)
[2016-07-11] MEDS: POTASSIUM CHLORIDE TABS 20 MEQ TABLET.ER (FP) PO SCH (09:15)
[2016-07-11] MEDS: NAPH,MB-DB/K PH,MBDB POWDER PACKET PO SCH ×2 (09:16→22:03)
[2016-07-11] MEDS: NEOMYCIN/POLYMYXIN/BACITRACIN (TRIPLE ANTIBIOTIC) 28 GM OINTMENT TP SCH ×2 (09:16→22:03)
[2016-07-11] MEDS: COLLAGENASE CLOSTRIDIUM HIST. 30 GRAMS TUBE TP SCH (09:17)
--- NOTE | 2016-07-11 09:33 | PN ---
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, Physician History of Present Illness: stable no new events/issues - Current Medication List Current Medications: Active Medications Acetaminophen (Tylenol -) 650 mg PO Q4H PRN PRN Reason: FEVER OR PAIN Last Admin: 07/10/16 13:10 Dose: 650 mg Ascorbic Acid (Vitamin C -) 500 mg PO DAILY [facility] Last Admin: 07/11/16 09:14 Dose: 500 mg Atorvastatin Calcium (Lipitor -) 10 mg PO HS [facility] Last Admin: 07/10/16 22:06 Dose: 10 mg Collagenase (Santyl -) 1 applic TP DAILY [facility] Last Admin: 07/11/16 09:17 Dose: 1 applic Dronabinol (Marinol -) 2.5 mg PO BID [facility] Last Admin: 07/11/16 09:14 Dose: 2.5 mg Finasteride (Proscar -) 5 mg PO DAILY [facility] Last Admin: 07/11/16 09:14 Dose: 5 mg Haloperidol (Haldol Injection (Fast Acting) -) 2 mg IM Q4H PRN PRN Reason: AGITATION Last Admin: 06/22/16 02:19 Dose: 2 mg Lactobacillus Acidophilus (Bacid -) 1 tab PO DAILY [facility] Last Admin: 07/11/16 09:14 Dose: 1 tab Magnesium Oxide (Mag-Ox -) 400 mg PO BID [facility] Last Admin: 07/11/16 09:14 Dose: 400 mg Metoprolol Succinate (Toprol Xl -) 25 mg PO DAILY [facility] Last Admin: 07/11/16 09:15 Dose: 25 mg Neomycin/Polymyxin/Bacitracin (Neosporin Topical Ointment -) 1 applic TP BID [facility] Last Admin: 07/11/16 09:16 Dose: 1 applic Nystatin/Triamcinolone Acetonide (Mycolog Ii Cream -) 1 applic TP BID [facility] Last Admin: 07/11/16 09:15 Dose: 1 applic Pantoprazole Sodium (Protonix -) 40 mg PO DAILY [facility] Last Admin: 07/11/16 09:14 Dose: 40 mg Potassium Chloride (K-Dur -) 20 meq PO DAILY [facility] Last Admin: 07/11/16 09:15 Dose: 20 meq Potassium Phos/Sodium Phos (Phos-Nak Packet -) 1 packet PO BID [facility] Last Admin: 07/11/16 09:16 Dose: 1 packet Tamsulosin HCl (Flomax -) 0.4 mg PO HS [facility] Last Admin: 07/10/16 22:06 Dose: 0.4 mg Trazodone HCl (Desyrel -) 37.5 mg PO [facility] Last Admin: 07/10/16 22:06 Dose: 37.5 mg - Objective Vital Signs: Vital Signs Temperature 97.9 F 07/11/16 06:00 Pulse Rate 61 07/11/16 06:00 Respiratory Rate 18 07/11/16 06:00 Blood Pressure 96/48 07/11/16 06:00 O2 Sat by Pulse Oximetry (%) 100 07/10/16 21:00 Constitutional: Yes: No Distress, Calm Cardiovascular: Yes: S1, S2 Respiratory: Yes: Regular, CTA Bilaterally Gastrointestinal: Yes: Normal Bowel Sounds, Soft Genitourinary: Yes: [place] Present Neurological: Yes: Alert, Other Labs: CBC, BMP 07/09/16 06:30 07/09/16 06:30 INR, PTT INR 1.18 (0.82-1.09) H 06/20/16 15:00 Assessment/Plan Problem List - Problems (1) Sepsis Code(s): A41.9 - SEPSIS, UNSPECIFIED ORGANISM Qualifiers: Sepsis type: sepsis due to unspecified organism Qualified Code(s): A41.9 - Sepsis, unspecified organism (2) UTI (urinary tract infection) Code(s): N39.0 - URINARY TRACT INFECTION, SITE NOT SPECIFIED Qualifiers: Urinary tract infection type: acute cystitis Hematuria presence: with hematuria Qualified Code(s): N30.01 - Acute cystitis with hematuria (3) Lactic acid acidosis Code(s): E87.2 - ACIDOSIS (4) Metabolic encephalopathy Code(s): G93.41 - METABOLIC ENCEPHALOPATHY (5) HTN (hypertension) Code(s): I10 - ESSENTIAL (PRIMARY) HYPERTENSION (6) Dementia Code(s): F03.90 - UNSPECIFIED DEMENTIA WITHOUT BEHAVIORAL DISTURBANCE 7 gram positive bacteremia plan stable doing well continue current mgmt awaiting placement
[2016-07-11] MEDS: ACETAMINOPHEN 325 MG TABLET (FP) PO PRN (18:53)
[2016-07-11] MEDS: traZODone HCL 50 MG TABLET (FP) PO SCH (22:02)
[2016-07-11] MEDS: TAMSULOSIN HCL 0.4 MG CAP.ER.24H (FP) PO SCH (22:02)
[2016-07-11] MEDS: ATORVASTATIN CA 10 MG TABLET (FP) PO SCH (22:02)
--- NOTE | 2016-07-12 08:37 | PN ---
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 (short form) - Note 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: Patient seen and examined. Chart reviewed. Currently sitting up in wheelchair , near the nurses' station, alert and responsive at baseline mental status. Appears in no acute distress Denies any chest discomfort or other bodily pain. No apparent dyspnea. Labs and medical sales consultant notes reviewed. Selected Entries 07/11/16 07/12/16 21:00 06:00 Temperature 97.7 F Pulse Rate 61 Blood Pressure 107/54 O2 Sat by Pulse 100 Oximetry (%) Oxygen Delivery Room Air Method Chest Clear Cor RRR Abdomen No tenderness No mass F/C in place Ext No edema No phlebitis Neuro No new focal deficit Confused Assessment and Plan Bacteremia Staph epi and Enterococcus faecalis On Rx as per ID Follow up blood culture negative UTI On Rx [place] catheter in place Dementia with superimposed toxic/metabolic encephalopathy Stable at baseline Anemia 9.7/29.9>>9.8/30.0>>10.2>>31.3 Likely multi-factorial with element of acute/chronic disease Monitor Hypoalbuminemia 2.3>>2.0>>2.2 likely related to acute/chronic disease as well as nutritional factors Hypokalemia 3.5>>3.8>>4.6 Replete as needed Hypertension Monitor Hypernatremia Improved Continue current Rx Await placement decision
[2016-07-12] MEDS: DRONABINOL 2.5 MG CAPSULE PO SCH ×2 (09:01→21:32)
[2016-07-12] MEDS: METOPROLOL SUCCINATE 25 MG TAB.SR.24H (FP) PO SCH (09:01)
[2016-07-12] MEDS: ASCORBIC ACID 500 MG TABLET (FP) PO SCH (09:02)
[2016-07-12] MEDS: PANTOPRAZOLE 40 MG TABLET (FP) PO SCH (09:02)
[2016-07-12] MEDS: NAPH,MB-DB/K PH,MBDB POWDER PACKET PO SCH ×2 (09:02→21:33)
[2016-07-12] MEDS: MAGNESIUM OXIDE 400 MG TABLET (FP) PO SCH ×2 (09:02→21:33)
[2016-07-12] MEDS: POTASSIUM CHLORIDE TABS 20 MEQ TABLET.ER (FP) PO SCH (09:02)
[2016-07-12] MEDS: LACTOBACILLUS ACIDOPHILUS 1 EACH TAB (FP) PO SCH (09:02)
[2016-07-12] MEDS: ACETAMINOPHEN 325 MG TABLET (FP) PO PRN (09:07)
[2016-07-12] MEDS: NEOMYCIN/POLYMYXIN/BACITRACIN (TRIPLE ANTIBIOTIC) 28 GM OINTMENT TP SCH ×2 (09:13→21:34)
[2016-07-12] MEDS: COLLAGENASE CLOSTRIDIUM HIST. 30 GRAMS TUBE TP SCH (09:13)
[2016-07-12] MEDS: NYSTATIN/TRIAMCINOLONE TOPICAL CREAM 15 GM TUBE TP SCH ×2 (09:13→21:33)
[2016-07-12] MEDS: FINASTERIDE 5 MG TABLET (FP) PO SCH (09:18)
--- NOTE | 2016-07-12 11:40 | PN ---
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, Physician History of Present Illness: stable no new issues - Current Medication List Current Medications: Active Medications Acetaminophen (Tylenol -) 650 mg PO Q4H PRN PRN Reason: FEVER OR PAIN Last Admin: 07/12/16 09:07 Dose: 650 mg Ascorbic Acid (Vitamin C -) 500 mg PO DAILY [facility] Last Admin: 07/12/16 09:02 Dose: 500 mg Atorvastatin Calcium (Lipitor -) 10 mg PO HS [facility] Last Admin: 07/11/16 22:02 Dose: 10 mg Collagenase (Santyl -) 1 applic TP DAILY [facility] Last Admin: 07/12/16 09:13 Dose: 1 applic Dronabinol (Marinol -) 2.5 mg PO BID [facility] Last Admin: 07/12/16 09:01 Dose: 2.5 mg Finasteride (Proscar -) 5 mg PO DAILY [facility] Last Admin: 07/12/16 09:18 Dose: 5 mg Haloperidol (Haldol Injection (Fast Acting) -) 2 mg IM Q4H PRN PRN Reason: AGITATION Last Admin: 06/22/16 02:19 Dose: 2 mg Lactobacillus Acidophilus (Bacid -) 1 tab PO DAILY [facility] Last Admin: 07/12/16 09:02 Dose: 1 tab Magnesium Oxide (Mag-Ox -) 400 mg PO BID [facility] Last Admin: 07/12/16 09:02 Dose: 400 mg Metoprolol Succinate (Toprol Xl -) 25 mg PO DAILY [facility] Last Admin: 07/12/16 09:01 Dose: 25 mg Neomycin/Polymyxin/Bacitracin (Neosporin Topical Ointment -) 1 applic TP BID [facility] Last Admin: 07/12/16 09:13 Dose: 1 applic Nystatin/Triamcinolone Acetonide (Mycolog Ii Cream -) 1 applic TP BID [facility] Last Admin: 07/12/16 09:13 Dose: 1 applic Pantoprazole Sodium (Protonix -) 40 mg PO DAILY [facility] Last Admin: 07/12/16 09:02 Dose: 40 mg Potassium Chloride (K-Dur -) 20 meq PO DAILY [facility] Last Admin: 07/12/16 09:02 Dose: 20 meq Potassium Phos/Sodium Phos (Phos-Nak Packet -) 1 packet PO BID [facility] Last Admin: 07/12/16 09:02 Dose: 1 packet Tamsulosin HCl (Flomax -) 0.4 mg PO HS [facility] Last Admin: 07/11/16 22:02 Dose: 0.4 mg Trazodone HCl (Desyrel -) 37.5 mg PO [facility] Last Admin: 07/11/16 22:02 Dose: 37.5 mg - Objective Vital Signs: Vital Signs Temperature 97.9 F 07/12/16 10:00 Pulse Rate 71 07/12/16 10:00 Respiratory Rate 18 07/12/16 10:00 Blood Pressure 141/63 07/12/16 10:00 O2 Sat by Pulse Oximetry (%) 100 07/12/16 09:00 Constitutional: Yes: No Distress, Calm Cardiovascular: Yes: S1, S2 Gastrointestinal: Yes: Normal Bowel Sounds, Soft Musculoskeletal: Yes: WNL Extremities: Yes: WNL Neurological: Yes: Alert, Other Labs: CBC, BMP 07/09/16 06:30 07/09/16 06:30 INR, PTT INR 1.18 (0.82-1.09) H 06/20/16 15:00 Assessment/Plan Problem List - Problems (1) Sepsis Code(s): A41.9 - SEPSIS, UNSPECIFIED ORGANISM Qualifiers: Sepsis type: sepsis due to unspecified organism Qualified Code(s): A41.9 - Sepsis, unspecified organism (2) UTI (urinary tract infection) Code(s): N39.0 - URINARY TRACT INFECTION, SITE NOT SPECIFIED Qualifiers: Urinary tract infection type: acute cystitis Hematuria presence: with hematuria Qualified Code(s): N30.01 - Acute cystitis with hematuria (3) Lactic acid acidosis Code(s): E87.2 - ACIDOSIS (4) Metabolic encephalopathy Code(s): G93.41 - METABOLIC ENCEPHALOPATHY (5) HTN (hypertension) Code(s): I10 - ESSENTIAL (PRIMARY) HYPERTENSION (6) Dementia Code(s): F03.90 - UNSPECIFIED DEMENTIA WITHOUT BEHAVIORAL DISTURBANCE 7 gram positive bacteremia plan stable doing well continue current mgmt awaiting placement
[2016-07-12] MEDS: TAMSULOSIN HCL 0.4 MG CAP.ER.24H (FP) PO SCH (21:33)
[2016-07-12] MEDS: ATORVASTATIN CA 10 MG TABLET (FP) PO SCH (21:33)
[2016-07-12] MEDS: traZODone HCL 50 MG TABLET (FP) PO SCH (21:33)
[2016-07-13] MEDS: LACTOBACILLUS ACIDOPHILUS 1 EACH TAB (FP) PO SCH (09:17)
[2016-07-13] MEDS: MAGNESIUM OXIDE 400 MG TABLET (FP) PO SCH ×2 (09:17→22:33)
[2016-07-13] MEDS: FINASTERIDE 5 MG TABLET (FP) PO SCH (09:17)
[2016-07-13] MEDS: DRONABINOL 2.5 MG CAPSULE PO SCH ×2 (09:17→22:34)
[2016-07-13] MEDS: PANTOPRAZOLE 40 MG TABLET (FP) PO SCH (09:17)
[2016-07-13] MEDS: ASCORBIC ACID 500 MG TABLET (FP) PO SCH (09:17)
[2016-07-13] MEDS: POTASSIUM CHLORIDE TABS 20 MEQ TABLET.ER (FP) PO SCH (09:17)
[2016-07-13] MEDS: NEOMYCIN/POLYMYXIN/BACITRACIN (TRIPLE ANTIBIOTIC) 28 GM OINTMENT TP SCH ×2 (09:18→22:35)
[2016-07-13] MEDS: NYSTATIN/TRIAMCINOLONE TOPICAL CREAM 15 GM TUBE TP SCH ×2 (09:19→22:36)
[2016-07-13] MEDS: METOPROLOL SUCCINATE 25 MG TAB.SR.24H (FP) PO SCH (09:19)
[2016-07-13] MEDS: NAPH,MB-DB/K PH,MBDB POWDER PACKET PO SCH ×2 (09:19→22:38)
[2016-07-13] MEDS: COLLAGENASE CLOSTRIDIUM HIST. 30 GRAMS TUBE TP SCH (09:19)
[2016-07-13] MEDS: ACETAMINOPHEN 325 MG TABLET (FP) PO PRN (10:58)
[2016-07-13] MEDS: HALOPERIDOL LACTATE 5 MG/ML IM PRN (12:59)
[2016-07-13] MEDS ORDERED: HALOPERIDOL LACTATE 5 MG/ML IM ONE ×2 (15:15→16:00)
[2016-07-13] MEDS ORDERED: LORAZEPAM CARPU-JECT 2 MG/ML DISP.SYRIN IVPUSH ONE (16:46)
[2016-07-13] MEDS ORDERED: LORAZEPAM CARPU-JECT 2 MG/ML DISP.SYRIN IM ONE (17:15)
--- NOTE | 2016-07-13 19:51 | PN ---
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 (short form) - Note 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: Denies chest pain, shortness of breath, palpitation or dizziness PO intake reasonable. O/E Vital Signs Period Temp Pulse Resp BP Sys/Krer Pulse Ox Last 24 Hr 98.1 F-98.7 F 59-70 16-20 101-141/61-90 100-100 Heart regular Lungs clear Abd soft Ext no edema Current Medications Acetaminophen (Tylenol -) 650 mg PO Q4H PRN PRN Reason: FEVER OR PAIN Last Admin: 07/05/16 11:38 Dose: 650 mg Ascorbic Acid (Vitamin C -) 500 mg PO DAILY [facility] Last Admin: 07/06/16 09:44 Dose: 500 mg Atorvastatin Calcium (Lipitor -) 10 mg PO HS [facility] Last Admin: 07/05/16 21:30 Dose: 10 mg Collagenase (Santyl -) 1 applic TP DAILY [facility] Last Admin: 07/06/16 09:45 Dose: 1 applic Dronabinol (Marinol -) 2.5 mg PO BID [facility] Last Admin: 07/06/16 09:44 Dose: 2.5 mg Finasteride (Proscar -) 5 mg PO DAILY [facility] Last Admin: 07/06/16 09:44 Dose: 5 mg Haloperidol (Haldol Injection (Fast Acting) -) 2 mg IM Q4H PRN PRN Reason: AGITATION Last Admin: 06/22/16 02:19 Dose: 2 mg Lactobacillus Acidophilus (Bacid -) 1 tab PO DAILY [facility] Last Admin: 07/06/16 09:44 Dose: 1 tab Magnesium Oxide (Mag-Ox -) 400 mg PO BID [facility] Last Admin: 07/06/16 09:44 Dose: 400 mg Metoprolol Succinate (Toprol Xl -) 25 mg PO DAILY [facility] Last Admin: 07/06/16 09:44 Dose: 25 mg Neomycin/Polymyxin/Bacitracin (Neosporin Topical Ointment -) 1 applic TP BID [facility] Last Admin: 07/06/16 09:45 Dose: 1 applic Nystatin/Triamcinolone Acetonide (Mycolog Ii Cream -) 1 applic TP BID [facility] Last Admin: 07/06/16 09:45 Dose: 1 applic Pantoprazole Sodium (Protonix -) 40 mg PO DAILY [facility] Last Admin: 07/06/16 09:44 Dose: 40 mg Potassium Chloride (K-Dur -) 20 meq PO DAILY [facility] Last Admin: 05/29/17 09:44 Dose: 20 meq Potassium Phos/Sodium Phos (Phos-Nak Packet -) 1 packet PO BID [facility] Last Admin: 07/06/16 09:45 Dose: 1 packet Tamsulosin HCl (Flomax -) 0.4 mg PO HS [facility] Last Admin: 07/05/16 21:30 Dose: 0.4 mg Trazodone HCl (Desyrel -) 37.5 mg PO HS [facility] Last Admin: 07/05/16 21:30 Dose: 37.5 mg CBC, BMP 07/09/16 06:30 07/09/16 06:30 A&P Assessment/Plan (1) Sepsis Code(s): A41.9 - SEPSIS, UNSPECIFIED ORGANISM Resolved Qualifiers: Sepsis type: sepsis due to unspecified organism Qualified Code(s): A41.9 - Sepsis, unspecified organism (2) UTI (urinary tract infection) Code(s): N39.0 - URINARY TRACT INFECTION, SITE NOT SPECIFIED Afebrile Qualifiers: Urinary tract infection type: acute cystitis Hematuria presence: with hematuria Qualified Code(s): N30.01 - Acute cystitis with hematuria Resolved (3) Metabolic encephalopathy Code(s): G93.41 - METABOLIC ENCEPHALOPATHY stable (4) HTN (hypertension) Code(s): I10 - ESSENTIAL (PRIMARY) HYPERTENSION Controlled (5) Dementia Code(s): F03.90 - UNSPECIFIED DEMENTIA WITHOUT BEHAVIORAL DISTURBANCE Awaiting discharge planning and placement
[2016-07-13] MEDS: ATORVASTATIN CA 10 MG TABLET (FP) PO SCH (22:33)
[2016-07-13] MEDS: traZODone HCL 50 MG TABLET (FP) PO SCH (22:33)
[2016-07-13] MEDS: TAMSULOSIN HCL 0.4 MG CAP.ER.24H (FP) PO SCH (22:34)
[2016-07-14] MEDS: ACETAMINOPHEN 325 MG TABLET (FP) PO PRN (03:00)
[2016-07-14] MEDS ORDERED: PT OWN MED DRAWER 7, Y5N ONE (09:06)
[2016-07-14] MEDS: NEOMYCIN/POLYMYXIN/BACITRACIN (TRIPLE ANTIBIOTIC) 28 GM OINTMENT TP SCH ×2 (09:13→21:44)
[2016-07-14] MEDS: ASCORBIC ACID 500 MG TABLET (FP) PO SCH (09:14)
[2016-07-14] MEDS: METOPROLOL SUCCINATE 25 MG TAB.SR.24H (FP) PO SCH (09:14)
[2016-07-14] MEDS: POTASSIUM CHLORIDE TABS 20 MEQ TABLET.ER (FP) PO SCH (09:14)
[2016-07-14] MEDS: LACTOBACILLUS ACIDOPHILUS 1 EACH TAB (FP) PO SCH (09:14)
[2016-07-14] MEDS: FINASTERIDE 5 MG TABLET (FP) PO SCH (09:14)
[2016-07-14] MEDS: MAGNESIUM OXIDE 400 MG TABLET (FP) PO SCH ×2 (09:14→21:41)
[2016-07-14] MEDS: DRONABINOL 2.5 MG CAPSULE PO SCH (09:14)
[2016-07-14] MEDS: PANTOPRAZOLE 40 MG TABLET (FP) PO SCH (09:14)
[2016-07-14] MEDS: COLLAGENASE CLOSTRIDIUM HIST. 30 GRAMS TUBE TP SCH (09:15)
[2016-07-14] MEDS: NYSTATIN/TRIAMCINOLONE TOPICAL CREAM 15 GM TUBE TP SCH ×2 (09:15→21:44)
[2016-07-14] MEDS: NAPH,MB-DB/K PH,MBDB POWDER PACKET PO SCH ×2 (09:15→21:45)
[2016-07-14] MEDS ORDERED: LORAZEPAM CARPU-JECT 2 MG/ML DISP.SYRIN IVPUSH ONE (09:47)
--- NOTE | 2016-07-14 09:52 | PN ---
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 (short form) - Note 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: C/O Frequent headaches for last 2-[address] Head ordered but patient restless. No fall reported. Afebrile. O/E Vital Signs Period Temp Pulse Resp BP Sys/Kerr Pulse Ox Last 24 Hr 97.3 F-98.7 F 65-74 16-20 101-141/62-90 100 Heart regular Lungs clear Abd soft Ext no edema Current Medications Acetaminophen (Tylenol -) 650 mg PO Q4H PRN PRN Reason: FEVER OR PAIN Last Admin: 07/05/16 11:38 Dose: 650 mg Ascorbic Acid (Vitamin C -) 500 mg PO DAILY [facility] Last Admin: 07/06/16 09:44 Dose: 500 mg Atorvastatin Calcium (Lipitor -) 10 mg PO HS [facility] Last Admin: 07/05/16 21:30 Dose: 10 mg Collagenase (Santyl -) 1 applic TP DAILY [facility] Last Admin: 07/06/16 09:45 Dose: 1 applic Dronabinol (Marinol -) 2.5 mg PO BID [facility] Last Admin: 07/06/16 09:44 Dose: 2.5 mg Finasteride (Proscar -) 5 mg PO DAILY [facility] Last Admin: 07/06/16 09:44 Dose: 5 mg Haloperidol (Haldol Injection (Fast Acting) -) 2 mg IM Q4H PRN PRN Reason: AGITATION Last Admin: 06/22/16 02:19 Dose: 2 mg Lactobacillus Acidophilus (Bacid -) 1 tab PO DAILY [facility] Last Admin: 07/06/16 09:44 Dose: 1 tab Magnesium Oxide (Mag-Ox -) 400 mg PO BID [facility] Last Admin: 07/06/16 09:44 Dose: 400 mg Metoprolol Succinate (Toprol Xl -) 25 mg PO DAILY [facility] Last Admin: 07/06/16 09:44 Dose: 25 mg Neomycin/Polymyxin/Bacitracin (Neosporin Topical Ointment -) 1 applic TP BID [facility] Last Admin: 07/06/16 09:45 Dose: 1 applic Nystatin/Triamcinolone Acetonide (Mycolog Ii Cream -) 1 applic TP BID [facility] Last Admin: 07/06/16 09:45 Dose: 1 applic Pantoprazole Sodium (Protonix -) 40 mg PO DAILY [facility] Last Admin: 07/06/16 09:44 Dose: 40 mg Potassium Chloride (K-Dur -) 20 meq PO DAILY [facility] Last Admin: 07/06/16 09:44 Dose: 20 meq Potassium Phos/Sodium Phos (Phos-Nak Packet -) 1 packet PO BID [facility] Last Admin: 07/06/16 09:45 Dose: 1 packet Tamsulosin HCl (Flomax -) 0.4 mg PO HS [facility] Last Admin: 07/05/16 21:30 Dose: 0.4 mg Trazodone HCl (Desyrel -) 37.5 mg PO HS [facility] Last Admin: 07/05/16 21:30 Dose: 37.5 mg CBC, BMP 07/09/16 06:30 07/09/16 06:30 A&P Assessment/Plan Headache Will get CT head to r/o any acute intracranial process. Ativan 1 mg IV push prior to the procedure. Will get neuro opinion. (1) Sepsis Code(s): A41.9 - SEPSIS, UNSPECIFIED ORGANISM Resolved Qualifiers: Sepsis type: sepsis due to unspecified organism Qualified Code(s): A41.9 - Sepsis, unspecified organism (2) UTI (urinary tract infection) Code(s): N39.0 - URINARY TRACT INFECTION, SITE NOT SPECIFIED Afebrile Qualifiers: Urinary tract infection type: acute cystitis Hematuria presence: with hematuria Qualified Code(s): N30.01 - Acute cystitis with hematuria Resolved (3) Metabolic encephalopathy Code(s): G93.41 - METABOLIC ENCEPHALOPATHY stable (4) HTN (hypertension) Code(s): I10 - ESSENTIAL (PRIMARY) HYPERTENSION Controlled (5) Dementia Code(s): F03.90 - UNSPECIFIED DEMENTIA WITHOUT BEHAVIORAL DISTURBANCE Awaiting discharge planning and placement
[2016-07-14] MEDS ORDERED: LORAZEPAM CARPU-JECT 2 MG/ML DISP.SYRIN IM ONE (10:45)
[2016-07-14] MEDS: QUEtiapine FUMARATE 25 MG TABLET (FP) PO SCH ×2 (11:21→21:41)
--- NOTE | 2016-07-14 13:25 | PN ---
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, Physician History of Present Illness: patient c/o headaches restless - Current Medication List Current Medications: Active Medications Acetaminophen (Tylenol -) 650 mg PO Q4H PRN PRN Reason: FEVER OR PAIN Last Admin: 07/14/16 03:00 Dose: 650 mg Ascorbic Acid (Vitamin C -) 500 mg PO DAILY [facility] Last Admin: 07/14/16 09:14 Dose: 500 mg Atorvastatin Calcium (Lipitor -) 10 mg PO HS [facility] Last Admin: 07/13/16 22:33 Dose: 10 mg Collagenase (Santyl -) 1 applic TP DAILY [facility] Last Admin: 07/14/16 09:15 Dose: 1 applic Dronabinol (Marinol -) 2.5 mg PO BID [facility] Last Admin: 07/14/16 09:14 Dose: 2.5 mg Finasteride (Proscar -) 5 mg PO DAILY [facility] Last Admin: 07/14/16 09:14 Dose: 5 mg Haloperidol (Haldol Injection (Fast Acting) -) 2 mg IM Q4H PRN PRN Reason: AGITATION Last Admin: 07/13/16 12:59 Dose: 2 mg Lactobacillus Acidophilus (Bacid -) 1 tab PO DAILY [facility] Last Admin: 07/14/16 09:14 Dose: 1 tab Magnesium Oxide (Mag-Ox -) 400 mg PO BID [facility] Last Admin: 07/14/16 09:14 Dose: 400 mg Metoprolol Succinate (Toprol Xl -) 25 mg PO DAILY [facility] Last Admin: 07/14/16 09:14 Dose: 25 mg Neomycin/Polymyxin/Bacitracin (Neosporin Topical Ointment -) 1 applic TP BID [facility] Last Admin: 07/14/16 09:13 Dose: 1 applic Nystatin/Triamcinolone Acetonide (Mycolog Ii Cream -) 1 applic TP BID [facility] Last Admin: 07/14/16 09:15 Dose: 1 applic Pantoprazole Sodium (Protonix -) 40 mg PO DAILY [facility] Last Admin: 07/14/16 09:14 Dose: 40 mg Potassium Chloride (K-Dur -) 20 meq PO DAILY [facility] Last Admin: 07/14/16 09:14 Dose: 20 meq Potassium Phos/Sodium Phos (Phos-Nak Packet -) 1 packet PO BID [facility] Last Admin: 07/14/16 09:15 Dose: 1 packet Quetiapine Fumarate (Seroquel -) 12.5 mg PO BID [facility] Last Admin: 07/14/16 11:21 Dose: 12.5 mg Tamsulosin HCl (Flomax -) 0.4 mg PO [facility] Last Admin: 07/13/16 22:34 Dose: 0.4 mg Trazodone HCl (Desyrel -) 37.5 mg PO [facility] Last Admin: 07/13/16 22:33 Dose: 37.5 mg - Objective Vital Signs: Vital Signs Temperature 97.3 F L 07/14/16 10:00 Pulse Rate 100 H 07/14/16 10:00 Respiratory Rate 20 07/14/16 10:00 Blood Pressure 143/87 07/14/16 10:00 O2 Sat by Pulse Oximetry (%) 100 07/14/16 09:00 Constitutional: Yes: Moderate Distress Cardiovascular: Yes: S1, S2 Respiratory: Yes: Regular, CTA Bilaterally Gastrointestinal: Yes: Normal Bowel Sounds, Soft Genitourinary: Yes: [place] Present Musculoskeletal: Yes: Other Extremities: Yes: Other Neurological: Yes: Alert Labs: CBC, BMP 07/09/16 06:30 07/09/16 06:30 INR, PTT INR 1.18 (0.82-1.09) H 06/20/16 15:00 Assessment/Plan Problem List - Problems (1) Sepsis Code(s): A41.9 - SEPSIS, UNSPECIFIED ORGANISM Qualifiers: Sepsis type: sepsis due to unspecified organism Qualified Code(s): A41.9 - Sepsis, unspecified organism (2) UTI (urinary tract infection) Code(s): N39.0 - URINARY TRACT INFECTION, SITE NOT SPECIFIED Qualifiers: Urinary tract infection type: acute cystitis Hematuria presence: with hematuria Qualified Code(s): N30.01 - Acute cystitis with hematuria (3) Lactic acid acidosis Code(s): E87.2 - ACIDOSIS (4) Metabolic encephalopathy Code(s): G93.41 - METABOLIC ENCEPHALOPATHY (5) HTN (hypertension) Code(s): I10 - ESSENTIAL (PRIMARY) HYPERTENSION (6) Dementia Code(s): F03.90 - UNSPECIFIED DEMENTIA WITHOUT BEHAVIORAL DISTURBANCE 7 gram positive bacteremia plan headaches restless ct current mgmt if continues to have headaches imaging studies
--- NOTE | 2016-07-14 13:28 | PN ---
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, Physician History of Present Illness: continues to have headaches restless plan for ct of the head - Current Medication List Current Medications: Active Medications Acetaminophen (Tylenol -) 650 mg PO Q4H PRN PRN Reason: FEVER OR PAIN Last Admin: 07/14/16 03:00 Dose: 650 mg Ascorbic Acid (Vitamin C -) 500 mg PO DAILY [facility] Last Admin: 07/14/16 09:14 Dose: 500 mg Atorvastatin Calcium (Lipitor -) 10 mg PO HS [facility] Last Admin: 07/13/16 22:33 Dose: 10 mg Collagenase (Santyl -) 1 applic TP DAILY [facility] Last Admin: 07/14/16 09:15 Dose: 1 applic Dronabinol (Marinol -) 2.5 mg PO BID [facility] Last Admin: 07/14/16 09:14 Dose: 2.5 mg Finasteride (Proscar -) 5 mg PO DAILY [facility] Last Admin: 07/14/16 09:14 Dose: 5 mg Haloperidol (Haldol Injection (Fast Acting) -) 2 mg IM Q4H PRN PRN Reason: AGITATION Last Admin: 07/13/16 12:59 Dose: 2 mg Lactobacillus Acidophilus (Bacid -) 1 tab PO DAILY [facility] Last Admin: 07/14/16 09:14 Dose: 1 tab Magnesium Oxide (Mag-Ox -) 400 mg PO BID [facility] Last Admin: 07/14/16 09:14 Dose: 400 mg Metoprolol Succinate (Toprol Xl -) 25 mg PO DAILY [facility] Last Admin: 07/14/16 09:14 Dose: 25 mg Neomycin/Polymyxin/Bacitracin (Neosporin Topical Ointment -) 1 applic TP BID [facility] Last Admin: 07/14/16 09:13 Dose: 1 applic Nystatin/Triamcinolone Acetonide (Mycolog Ii Cream -) 1 applic TP BID [facility] Last Admin: 07/14/16 09:15 Dose: 1 applic Pantoprazole Sodium (Protonix -) 40 mg PO DAILY [facility] Last Admin: 07/14/16 09:14 Dose: 40 mg Potassium Chloride (K-Dur -) 20 meq PO DAILY [facility] Last Admin: 07/14/16 09:14 Dose: 20 meq Potassium Phos/Sodium Phos (Phos-Nak Packet -) 1 packet PO BID [facility] Last Admin: 07/14/16 09:15 Dose: 1 packet Quetiapine Fumarate (Seroquel -) 12.5 mg PO BID [facility] Last Admin: 07/14/16 11:21 Dose: 12.5 mg Tamsulosin HCl (Flomax -) 0.4 mg PO [facility] Last Admin: 07/13/16 22:34 Dose: 0.4 mg Trazodone HCl (Desyrel -) 37.5 mg PO [facility] Last Admin: 07/13/16 22:33 Dose: 37.5 mg - Objective Vital Signs: Vital Signs Temperature 97.3 F L 07/14/16 10:00 Pulse Rate 100 H 07/14/16 10:00 Respiratory Rate 20 07/14/16 10:00 Blood Pressure 143/87 07/14/16 10:00 O2 Sat by Pulse Oximetry (%) 100 07/14/16 09:00 Constitutional: Yes: Mild Distress HENT: Yes: Atraumatic Neck: Yes: Supple, Other (no tenderness) Cardiovascular: Yes: S1, S2 Respiratory: Yes: Regular, CTA Bilaterally Gastrointestinal: Yes: Normal Bowel Sounds, Soft Genitourinary: Yes: [place] Present Musculoskeletal: Yes: WNL Extremities: Yes: WNL Neurological: Yes: Alert, Other (headaches) Psychiatric: Yes: Other Labs: CBC, BMP 07/09/16 06:30 07/09/16 06:30 INR, PTT INR 1.18 (0.82-1.09) H 06/20/16 15:00 Assessment/Plan Problem List - Problems (1) Sepsis Code(s): A41.9 - SEPSIS, UNSPECIFIED ORGANISM Qualifiers: Sepsis type: sepsis due to unspecified organism Qualified Code(s): A41.9 - Sepsis, unspecified organism (2) UTI (urinary tract infection) Code(s): N39.0 - URINARY TRACT INFECTION, SITE NOT SPECIFIED Qualifiers: Urinary tract infection type: acute cystitis Hematuria presence: with hematuria Qualified Code(s): N30.01 - Acute cystitis with hematuria (3) Lactic acid acidosis Code(s): E87.2 - ACIDOSIS (4) Metabolic encephalopathy Code(s): G93.41 - METABOLIC ENCEPHALOPATHY (5) HTN (hypertension) Code(s): I10 - ESSENTIAL (PRIMARY) HYPERTENSION (6) Dementia Code(s): F03.90 - UNSPECIFIED DEMENTIA WITHOUT BEHAVIORAL DISTURBANCE 7 gram positive bacteremia 8 head aches plan will await ct scan results continue current mgmt rest as primary team
--- NOTE | 2016-07-14 18:03 | CON.NEURO ---
Consult Consult Specialty:: neurology - History of Present Illness History of Present Illness: 80 year old patient admitted for UTI with severe sepsis, awaiting placement, called for HERNÁNDEZ x 2-3 3 days, was restless last few days and given ATIVAn, haldol ; pt with hx of dementia, poor HX; not endorsing HERNÁNDEZ now. no family bedside. no clear pain with chewing, scalp tingling. CT HD Impression. No evidence of acute intracranial hemorrhage, edema, midline shift, mass effect, or skull fracture. No CT evidence of acute territorial infarction. Several right ethmoid air cells are opacified. 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 Cardio/Vascular: Yes: HTN Renal/: Yes: BPH - Alcohol/Substance Use Hx Alcohol Use: No History of Substance Use: reports: None - Smoking History Smoking history: Unknown if ever smoked Have you smoked in the past 12 months: No - Social History ADL: Support Services History of Recent Travel: No Home Medications - Allergies Allergies/Adverse Reactions: Allergies Allergy/AdvReac Type Severity Reaction Status Date / Time No Known Allergies Allergy Verified 06/10/16 09:39 - Home Medications Home Medications: Ambulatory Orders Aa/Hydrolyzed Collagen, Whey [Lps Neutral Flavor Liquid] 30 ml PO TID 06/10/16 Acetaminophen 2 tab PO DAILY PRN 06/10/16 Ascorbic Acid [Vitamin C -] 1 tab PO DAILY 06/10/16 Collagenase Clostridium Hist. [Santyl] 1 applic TP DAILY 06/10/16 Dronabinol [Marinol] 1 tab PO BID 06/10/16 Finasteride 1 tab PO DAILY 06/10/16 Lorazepam [Ativan] 1 tab PO HS 06/10/16 Menthol/Zinc Oxide [Calmoseptine Ointment] 1 applic TP TID 06/10/16 Metoprolol Succinate [Toprol Xl] 1 tab PO DAILY 06/10/16 Multivitamin with Minerals [Icaps Plus] 1 tab PO DAILY 06/10/16 Omeprazole 2 tab PO DAILY 06/10/16 Tamsulosin HCl 1 tab PO HS 06/10/16 Tramadol HCl 1 tab PO Q4H PRN 06/10/16 Tramadol HCl [Tramadol HCl ER] 100 mg PO DAILY 06/10/16 Trazodone HCl 37.5 mg PO HS 06/10/16 Lactobacillus Acidophilus [Bacid -] 1 tab PO DAILY tab 06/18/16 Magnesium Oxide [Mag-Ox -] 400 mg PO BID tablet 06/18/16 Ampicillin Trihydrate [Ampicillin Trihydrate Capsule] 500 mg PO Q8H 7 Days 06/19 Family Disease History - Family Disease History Other Family History: Multiple family members with diabetes, daughter cannot remember which specific family members though Physical Exam-Neuro Vital Signs: Vital Signs Temperature 98.9 F 07/14/16 17:10 Pulse Rate 76 07/14/16 17:10 Respiratory Rate 20 07/14/16 17:10 Blood Pressure 149/91 07/14/16 17:10 O2 Sat by Pulse Oximetry (%) 100 07/14/16 09:00 Constitutional: Yes: No Distress Neck: Yes: WNL Cardiovascular: Yes: Regular Rate and Rhythm Labs: CBC, BMP 07/09/16 06:30 07/09/16 06:30 INR, PTT INR 1.18 (0.82-1.09) H 06/20/16 15:00 - Neuro Exam Level Of Consciousness: Yes: Alert (awake but limited orientation, following commands inconsistently , EOMI, counts fingers, no islam pain , no focal weaknes though very limited effort, + cogwheeling and tremor , in wheeklchair eating dinner --gait not tested) NIH Stroke Scale - Total Score NIH Stroke Scale Score: 0 Imaging - Results Cat Scan: Report Reviewed, Image Reviewed Problem List - Problems (1) Dementia Code(s): F03.90 - UNSPECIFIED DEMENTIA WITHOUT BEHAVIORAL DISTURBANCE (2) Sepsis Code(s): A41.9 - SEPSIS, UNSPECIFIED ORGANISM Qualifiers: Sepsis type: sepsis due to unspecified organism Qualified Code(s): A41.9 - Sepsis, unspecified organism (3) Headache Code(s): R51 - HEADACHE Assessment/Plan 80 year old patient admitted for UTI with severe sepsis, awaiting placement, called for HERNÁNDEZ x 2-3 3 days, was restless last few days and given ATIVAn, haldol ; pt with hx of dementia, poor HX; not endorsing HERNÁNDEZ now. no family bedside. no clear pain with chewing, scalp tingling. CT HD no acute pathology Headache: - highly doubt temporal arteritis, though if continues check ESR, CRP ( may also be elevated given recent infection) . non focal exam, can use Tylenol PRN Dementia: avoid haldol, dementia with parkinsonism vs haldol effect use low dose seroquel /ativan if absolutely needed, team aware Thanks Dr Handley [phone]
[2016-07-14] MEDS ORDERED: LORAZEPAM CARPU-JECT 2 MG/ML DISP.SYRIN IM PRN (18:21)
[2016-07-14] MEDS: TAMSULOSIN HCL 0.4 MG CAP.ER.24H (FP) PO SCH (21:41)
[2016-07-14] MEDS: traZODone HCL 50 MG TABLET (FP) PO SCH (21:43)
[2016-07-14] MEDS: ATORVASTATIN CA 10 MG TABLET (FP) PO SCH (21:43)
[2016-07-14] MEDS ORDERED: QUEtiapine FUMARATE 25 MG TABLET (FP) PO SCH (22:00)
[2016-07-15 08:13] LABS: BASOPHIL 0.5 % (0-2.0); EOSINOPHIL 2.4 % (0-4.5); MCHC 32.8 g/dl (32.0-35.9); MEAN CELL VOLUME 85.4 fl (80-96); MEAN PLT VOLUME 8.7 fl (7.5-11.1); PLATELET COUNT 211 K/MM3 (134-434); RDW 17.8 % (11.9-15.9); WHITE BLOOD COUNT 7.1 K/mm3 (4.0-10.0)
[2016-07-15 08:38] LABS: ALBUMIN 2.7 g/dl (3.4-5.0); ANION GAP 7 (8-16); BILIRUBIN,TOTAL 0.6 mg/dL (0.2-1.0); CALCIUM 8.7 mg/dL (8.5-10.1); CO2 29 mmol/L (21-32); COCKROFT - GAULT 80.15; CREATININE 0.7 mg/dL (0.7-1.3); GLUCOSE,RANDOM 67 mg/dL (74-106); SGOT/AST 20 U/L (15-37); SGPT/ALT 25 U/L (12-78); TOT PROT 5.8 g/dl (6.4-8.2)
[2016-07-15 08:39] LABS: ALK PHOS 86 U/L (45-117)
--- NOTE | 2016-07-15 08:55 | PN ---
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 (short form) - Note 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: Patient seen and examined. No acute event overnight. Headache on & off. Denies chest pain, shortness of breath, palpitation or dizziness. O/E Vital Signs Period Temp Pulse Resp BP Sys/Kerr Pulse Ox Last 24 Hr 97.3 F-98.9 F 76-100 16-20 100-149/63-91 100-100 Heart regular Lungs clear Abd soft Ext no edema Current Medications Acetaminophen (Tylenol -) 650 mg PO Q4H PRN PRN Reason: FEVER OR PAIN Last Admin: 07/05/16 11:38 Dose: 650 mg Ascorbic Acid (Vitamin C -) 500 mg PO DAILY [facility] Last Admin: 07/06/16 09:44 Dose: 500 mg Atorvastatin Calcium (Lipitor -) 10 mg PO HS [facility] Last Admin: 07/05/16 21:30 Dose: 10 mg Collagenase (Santyl -) 1 applic TP DAILY [facility] Last Admin: 07/06/16 09:45 Dose: 1 applic Dronabinol (Marinol -) 2.5 mg PO BID [facility] Last Admin: 07/06/16 09:44 Dose: 2.5 mg Finasteride (Proscar -) 5 mg PO DAILY [facility] Last Admin: 07/06/16 09:44 Dose: 5 mg Haloperidol (Haldol Injection (Fast Acting) -) 2 mg IM Q4H PRN PRN Reason: AGITATION Last Admin: 06/22/16 02:19 Dose: 2 mg Lactobacillus Acidophilus (Bacid -) 1 tab PO DAILY [facility] Last Admin: 07/06/16 09:44 Dose: 1 tab Magnesium Oxide (Mag-Ox -) 400 mg PO BID [facility] Last Admin: 07/06/16 09:44 Dose: 400 mg Metoprolol Succinate (Toprol Xl -) 25 mg PO DAILY [facility] [place] Last Admin: 07/06/16 09:44 Dose: 25 mg Neomycin/Polymyxin/Bacitracin (Neosporin Topical Ointment -) 1 applic TP BID [facility] Last Admin: 07/06/16 09:45 Dose: 1 applic Nystatin/Triamcinolone Acetonide (Mycolog Ii Cream -) 1 applic TP BID [facility] Last Admin: 07/06/16 09:45 Dose: 1 applic Pantoprazole Sodium (Protonix -) 40 mg PO DAILY [facility] [place] Last Admin: 07/06/16 09:44 Dose: 40 mg Potassium Chloride (K-Dur -) 20 meq PO DAILY [facility] [place] Last Admin: 07/06/16 09:44 Dose: 20 meq Potassium Phos/Sodium Phos (Phos-Nak Packet -) 1 packet PO BID [facility] [place] Last Admin: 07/06/16 09:45 Dose: 1 packet Tamsulosin HCl (Flomax -) 0.4 mg PO HS [facility] Last Admin: 07/05/16 21:30 Dose: 0.4 mg Trazodone HCl (Desyrel -) 37.5 mg PO HS [facility] [place] Last Admin: 07/05/16 21:30 Dose: 37.5 mg CBC, BMP 07/15/16 07:00 07/15/16 07:00 A&P Assessment/Plan Headache Neurology consult reviewed. CT head: Nil acute. Tylenol prn. Labs reviewed. (1) Sepsis Code(s): A41.9 - SEPSIS, UNSPECIFIED ORGANISM Resolved Qualifiers: Sepsis type: sepsis due to unspecified organism Qualified Code(s): A41.9 - Sepsis, unspecified organism (2) UTI (urinary tract infection) Code(s): N39.0 - URINARY TRACT INFECTION, SITE NOT SPECIFIED Afebrile Qualifiers: Urinary tract infection type: acute cystitis Hematuria presence: with hematuria Qualified Code(s): N30.01 - Acute cystitis with hematuria Resolved (3) Metabolic encephalopathy Code(s): G93.41 - METABOLIC ENCEPHALOPATHY stable (4) HTN (hypertension) Code(s): I10 - ESSENTIAL (PRIMARY) HYPERTENSION Controlled (5) Dementia Code(s): F03.90 - UNSPECIFIED DEMENTIA WITHOUT BEHAVIORAL DISTURBANCE Awaiting discharge planning and placement
[2016-07-15] MEDS: PANTOPRAZOLE 40 MG TABLET (FP) PO SCH (10:25)
[2016-07-15] MEDS: NYSTATIN/TRIAMCINOLONE TOPICAL CREAM 15 GM TUBE TP SCH ×2 (10:25→21:54)
[2016-07-15] MEDS: LACTOBACILLUS ACIDOPHILUS 1 EACH TAB (FP) PO SCH (10:25)
[2016-07-15] MEDS: METOPROLOL SUCCINATE 25 MG TAB.SR.24H (FP) PO SCH (10:25)
[2016-07-15] MEDS: ASCORBIC ACID 500 MG TABLET (FP) PO SCH (10:25)
[2016-07-15] MEDS: MAGNESIUM OXIDE 400 MG TABLET (FP) PO SCH ×2 (10:25→21:51)
[2016-07-15] MEDS: FINASTERIDE 5 MG TABLET (FP) PO SCH (10:25)
[2016-07-15] MEDS: QUEtiapine FUMARATE 25 MG TABLET (FP) PO SCH ×2 (10:25→21:51)
[2016-07-15] MEDS: POTASSIUM CHLORIDE TABS 20 MEQ TABLET.ER (FP) PO SCH (10:25)
[2016-07-15] MEDS: NAPH,MB-DB/K PH,MBDB POWDER PACKET PO SCH ×2 (10:26→21:53)
[2016-07-15] MEDS: NEOMYCIN/POLYMYXIN/BACITRACIN (TRIPLE ANTIBIOTIC) 28 GM OINTMENT TP SCH ×2 (10:26→21:54)
--- NOTE | 2016-07-15 10:36 | PN ---
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 (short form) - Note 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: s: appears comfortable, no overnight events, denies any cp pain/sob o: Vital Signs Period Temp Pulse Resp BP Sys/Kerr Pulse Ox Last 24 Hr 97.9 F-98.9 F 76-90 16-20 100-149/63-91 100 awake, nad jvd flat, neck supple ctabl, poor effort rrr, nl s1, s2 no mrg ext without e/c/c alert no jaundice, diaphoresis Current Medications Generic Name Dose Route Start Last Admin Trade Name Freq PRN Reason Stop Dose Admin Acetaminophen 650 mg 06/12/16 10:27 07/14/16 03:00 Tylenol - PO 650 mg Q4H PRN Administration FEVER OR PAIN Ascorbic Acid 500 mg 06/11/16 10:00 07/15/16 10:25 Vitamin C - PO 500 mg DAILY [facility] Administration Atorvastatin Calcium 10 mg 06/10/16 22:00 07/14/16 21:43 Lipitor - PO 10 mg HS [facility] Administration Collagenase 1 applic 06/11/16 10:00 07/14/16 09:15 Santyl - TP 1 applic DAILY [facility] Administration Finasteride 5 mg 06/11/16 10:00 07/15/16 10:25 Proscar - PO 5 mg DAILY [facility] Administration Lactobacillus Acidophilus 1 tab 06/11/16 10:00 07/15/16 10:25 Bacid - PO 1 tab DAILY [facility] Administration Lorazepam 0.5 mg 07/14/16 18:21 07/15/16 03:13 Ativan Injection - IM 07/15/16 18:20 0.5 mg BID PRN Administration ANXIETY Magnesium Oxide 400 mg 06/16/16 12:30 07/15/16 10:25 Mag-Ox - PO 400 mg BID [facility] Administration Metoprolol Succinate 25 mg 06/10/16 19:12 07/15/16 10:25 Toprol Xl - PO 25 mg DAILY [facility] Administration Neomycin/Polymyxin/Bacitracin 1 applic 06/27/16 22:00 07/15/16 10:26 Neosporin Topical Ointment - TP 1 applic BID [facility] Administration Nystatin/Triamcinolone Acetonide 1 applic 06/19/16 22:00 07/15/16 10:25 Mycolog Ii Cream - TP 1 applic BID [facility] Administration Pantoprazole Sodium 40 mg 06/11/16 10:00 07/15/16 10:25 Protonix - PO 40 mg DAILY [facility] Administration Potassium Chloride 20 meq 06/27/16 10:00 07/15/16 10:25 K-Dur - PO 20 meq DAILY [facility] Administration Potassium Phos/Sodium Phos 1 packet 06/16/16 12:30 07/15/16 10:26 Phos-Nak Packet - PO 1 packet BID [facility] Administration Quetiapine Fumarate 12.5 mg 07/14/16 11:00 07/15/16 10:25 Seroquel - PO 12.5 mg BID [facility] Administration Tamsulosin HCl 0.4 mg 06/10/16 22:00 07/14/16 21:41 Flomax - PO 0.4 mg HS [facility] Administration Trazodone HCl 37.5 mg 06/10/16 22:00 07/14/16 21:43 Desyrel - PO 37.5 mg HS [facility] Administration CBC, BMP 07/15/16 07:00 07/15/16 07:00 EKG 06/10 12:21: uninterpretable due to baseline artifact EKG 06/10 14:46 Poor quality/baseline. Sinus tach with diffuse ST abnormalities. anterior ST sagging. possible inferior q waves. low limb voltages. a/p: 80 yo with h/o htn, bph, advanced dementia who sent to ER for hematuria and noted to have UTI with sepsis complicated by elevated cardiac enzymes. positive trops: - borderline trop elevation with flat trend and low ck index, not consistent with acs, likely related to likely demand in setting of infection and tachycardia. - started low dose atorvastatin while here - cont metoprolol - not on asa due to hematuria - echo done here this admit was non-diagnostic due to pt agitation/lack of cooperation - no chest pain symptoms htn - controlled adequately on bb sepsis/uti/hematuria - resolved, awaiting placement now, mgm't per pmd/urology/ID
[2016-07-15] MEDS: COLLAGENASE CLOSTRIDIUM HIST. 30 GRAMS TUBE TP SCH (15:13)
--- NOTE | 2016-07-15 15:27 | PN ---
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, Physician History of Present Illness: neurology note noted ct scan seen - Current Medication List Current Medications: Active Medications Acetaminophen (Tylenol -) 650 mg PO Q4H PRN PRN Reason: FEVER OR PAIN Last Admin: 07/14/16 03:00 Dose: 650 mg Ascorbic Acid (Vitamin C -) 500 mg PO DAILY [facility] Last Admin: 07/15/16 10:25 Dose: 500 mg Atorvastatin Calcium (Lipitor -) 10 mg PO HS [facility] Last Admin: 07/14/16 21:43 Dose: 10 mg Collagenase (Santyl -) 1 applic TP DAILY [facility] Last Admin: 07/15/16 15:13 Dose: 1 applic Finasteride (Proscar -) 5 mg PO DAILY [facility] Last Admin: 07/15/16 10:25 Dose: 5 mg Lactobacillus Acidophilus (Bacid -) 1 tab PO DAILY [facility] Last Admin: 07/15/16 10:25 Dose: 1 tab Lorazepam (Ativan Injection -) 0.5 mg IM BID PRN PRN Reason: ANXIETY Stop: 07/15/16 18:20 Last Admin: 07/15/16 03:13 Dose: 0.5 mg Magnesium Oxide (Mag-Ox -) 400 mg PO BID [facility] Last Admin: 07/15/16 10:25 Dose: 400 mg Metoprolol Succinate (Toprol Xl -) 25 mg PO DAILY [facility] Last Admin: 07/15/16 10:25 Dose: 25 mg Neomycin/Polymyxin/Bacitracin (Neosporin Topical Ointment -) 1 applic TP BID [facility] Last Admin: 07/15/16 10:26 Dose: 1 applic Nystatin/Triamcinolone Acetonide (Mycolog Ii Cream -) 1 applic TP BID [facility] Last Admin: 07/15/16 10:25 Dose: 1 applic Pantoprazole Sodium (Protonix -) 40 mg PO DAILY [facility] Last Admin: 07/15/16 10:25 Dose: 40 mg Potassium Chloride (K-Dur -) 20 meq PO DAILY [facility] Last Admin: 07/15/16 10:25 Dose: 20 meq Potassium Phos/Sodium Phos (Phos-Nak Packet -) 1 packet PO BID [facility] Last Admin: 07/15/16 10:26 Dose: 1 packet Quetiapine Fumarate (Seroquel -) 12.5 mg PO BID [facility] Last Admin: 07/15/16 10:25 Dose: 12.5 mg Tamsulosin HCl (Flomax -) 0.4 mg PO [facility] Last Admin: 07/14/16 21:41 Dose: 0.4 mg Trazodone HCl (Desyrel -) 37.5 mg PO [facility] Last Admin: 07/14/16 21:43 Dose: 37.5 mg - Objective Vital Signs: Vital Signs Temperature 98.4 F 07/15/16 14:26 Pulse Rate 72 07/15/16 14:26 Respiratory Rate 16 07/15/16 14:26 Blood Pressure 100/59 07/15/16 14:26 O2 Sat by Pulse Oximetry (%) 100 07/14/16 21:00 Constitutional: Yes: No Distress, Calm Cardiovascular: Yes: S1, S2 Respiratory: Yes: Regular, CTA Bilaterally Gastrointestinal: Yes: Normal Bowel Sounds, Soft Genitourinary: Yes: [place] Present Musculoskeletal: Yes: Other Extremities: Yes: Other Neurological: Yes: Other Psychiatric: Yes: Other Labs: CBC, BMP 07/15/16 07:00 07/15/16 07:00 INR, PTT INR 1.18 (0.82-1.09) H 06/20/16 15:00 - ....Imaging Cat Scan: Report Reviewed, Image Reviewed Assessment/Plan Problem List - Problems (1) Sepsis Code(s): A41.9 - SEPSIS, UNSPECIFIED ORGANISM Qualifiers: Sepsis type: sepsis due to unspecified organism Qualified Code(s): A41.9 - Sepsis, unspecified organism (2) UTI (urinary tract infection) Code(s): N39.0 - URINARY TRACT INFECTION, SITE NOT SPECIFIED Qualifiers: Urinary tract infection type: acute cystitis Hematuria presence: with hematuria Qualified Code(s): N30.01 - Acute cystitis with hematuria (3) Lactic acid acidosis Code(s): E87.2 - ACIDOSIS (4) Metabolic encephalopathy Code(s): G93.41 - METABOLIC ENCEPHALOPATHY (5) HTN (hypertension) Code(s): I10 - ESSENTIAL (PRIMARY) HYPERTENSION (6) Dementia Code(s): F03.90 - UNSPECIFIED DEMENTIA WITHOUT BEHAVIORAL DISTURBANCE 7 gram positive bacteremia [address] result noted scan seen continue as per neurology rest as per primary
[2016-07-15] MEDS: traZODone HCL 50 MG TABLET (FP) PO SCH (21:51)
[2016-07-15] MEDS: TAMSULOSIN HCL 0.4 MG CAP.ER.24H (FP) PO SCH (21:53)
[2016-07-15] MEDS: ATORVASTATIN CA 10 MG TABLET (FP) PO SCH (21:53)
--- NOTE | 2016-07-16 08:32 | PN ---
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 (short form) - Note 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: No acute event overnight. Denies chest pain, shortness of breath, palpitation or dizziness. O/E Vital Signs Period Temp Pulse Resp BP Sys/Kerr Pulse Ox Last 24 Hr 98.0 F-98.8 F 69-78 16-20 99-129/53-64 100-100 Heart regular Lungs clear Abd soft Ext no edema Current Medications Acetaminophen (Tylenol -) 650 mg PO Q4H PRN PRN Reason: FEVER OR PAIN Last Admin: 07/05/16 11:38 Dose: 650 mg Ascorbic Acid (Vitamin C -) 500 mg PO DAILY [facility] Last Admin: 07/06/16 09:44 Dose: 500 mg Atorvastatin Calcium (Lipitor -) 10 mg PO HS [facility] Last Admin: 07/05/16 21:30 Dose: 10 mg Collagenase (Santyl -) 1 applic TP DAILY [facility] Last Admin: 07/06/16 09:45 Dose: 1 applic Dronabinol (Marinol -) 2.5 mg PO BID [facility] Last Admin: 07/06/16 09:44 Dose: 2.5 mg Finasteride (Proscar -) 5 mg PO DAILY [facility] Last Admin: 07/06/16 09:44 Dose: 5 mg Haloperidol (Haldol Injection (Fast Acting) -) 2 mg IM Q4H PRN PRN Reason: AGITATION Last Admin: 06/22/16 02:19 Dose: 2 mg Lactobacillus Acidophilus (Bacid -) 1 tab PO DAILY [facility] Last Admin: 07/06/16 09:44 Dose: 1 tab Magnesium Oxide (Mag-Ox -) 400 mg PO BID [facility] Last Admin: 07/06/16 09:44 Dose: 400 mg Metoprolol Succinate (Toprol Xl -) 25 mg PO DAILY [facility] Last Admin: 07/06/16 09:44 Dose: 25 mg Neomycin/Polymyxin/Bacitracin (Neosporin Topical Ointment -) 1 applic TP BID [facility] Last Admin: 07/06/16 09:45 Dose: 1 applic Nystatin/Triamcinolone Acetonide (Mycolog Ii Cream -) 1 applic TP BID [facility] Last Admin: 07/06/16 09:45 Dose: 1 applic Pantoprazole Sodium (Protonix -) 40 mg PO DAILY [facility] Last Admin: 07/06/16 09:44 Dose: 40 mg Potassium Chloride (K-Dur -) 20 meq PO DAILY [facility] Last Admin: 07/06/16 09:44 Dose: 20 meq Potassium Phos/Sodium Phos (Phos-Nak Packet -) 1 packet PO BID [facility] Last Admin: 07/06/16 09:45 Dose: 1 packet Tamsulosin HCl (Flomax -) 0.4 mg PO HS [facility] Last Admin: 07/05/16 21:30 Dose: 0.4 mg Trazodone HCl (Desyrel -) 37.5 mg PO HS [facility] Last Admin: 07/05/16 21:30 Dose: 37.5 mg CBC, BMP 07/15/16 07:00 07/15/16 07:00 A&P Assessment/Plan Headache Stable Neurology consult appreciated CT head: Nil acute. Tylenol prn. (1) Sepsis Code(s): A41.9 - SEPSIS, UNSPECIFIED ORGANISM Resolved Qualifiers: Sepsis type: sepsis due to unspecified organism Qualified Code(s): A41.9 - Sepsis, unspecified organism (2) UTI (urinary tract infection) Code(s): N39.0 - URINARY TRACT INFECTION, SITE NOT SPECIFIED Afebrile Qualifiers: Urinary tract infection type: acute cystitis Hematuria presence: with hematuria Qualified Code(s): N30.01 - Acute cystitis with hematuria Resolved (3) Metabolic encephalopathy Code(s): G93.41 - METABOLIC ENCEPHALOPATHY stable (4) HTN (hypertension) Code(s): I10 - ESSENTIAL (PRIMARY) HYPERTENSION Controlled (5) Dementia Code(s): F03.90 - UNSPECIFIED DEMENTIA WITHOUT BEHAVIORAL DISTURBANCE Awaiting discharge planning and placement
--- NOTE | 2016-07-16 09:35 | PN ---
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 (short form) - Note 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: 80 year old patient admitted for UTI with severe sepsis, awaiting placement, called for HERNÁNDEZ x 2-3 3 days, was restless last few days and given ATIVAn, haldol ; pt with hx of dementia, poor HX; not endorsing HERNÁNDEZ now. no family bedside. no clear pain with chewing, scalp tingling. FU: sleepy this AM, denies HERNÁNDEZ appears otherwise calm CT HD Impression. No evidence of acute intracranial hemorrhage, edema, midline shift, mass effect, or skull fracture. No CT evidence of acute territorial infarction. Several right ethmoid air cells are opacified. - History Source History Provided By: Patient, Medical Record - Past Medical History [employer]: Yes: Dementia Cardio/Vascular: Yes: HTN Renal/: Yes: BPH - Alcohol/Substance Use Hx Alcohol Use: No History of Substance Use: reports: None - Smoking History Smoking history: Unknown if ever smoked Have you smoked in the past 12 months: No - Social History ADL: Support Services History of Recent Travel: No Home Medications - Allergies Allergies/Adverse Reactions: Allergies Allergy/AdvReac Type Severity Reaction Status Date / Time No Known Allergies Allergy Verified 06/10/16 09:39 - Home Medications Home Medications: Ambulatory Orders Aa/Hydrolyzed Collagen, Whey [Lps Neutral Flavor Liquid] 30 ml PO TID 06/10/16 Acetaminophen 2 tab PO DAILY PRN 06/10/16 Ascorbic Acid [Vitamin C -] 1 tab PO DAILY 06/10/16 Collagenase Clostridium Hist. [Santyl] 1 applic TP DAILY 06/10/16 Dronabinol [Marinol] 1 tab PO BID 06/10/16 Finasteride 1 tab PO DAILY 06/10/16 Lorazepam [Ativan] 1 tab PO HS 06/10/16 Menthol/Zinc Oxide [Calmoseptine Ointment] 1 applic TP TID 06/10/16 Metoprolol Succinate [Toprol Xl] 1 tab PO DAILY 06/10/16 Multivitamin with Minerals [Icaps Plus] 1 tab PO DAILY 06/10/16 Omeprazole 2 tab PO DAILY 06/10/16 Tamsulosin HCl 1 tab PO HS 06/10/16 Tramadol HCl 1 tab PO Q4H PRN 06/10/16 Tramadol HCl [Tramadol HCl ER] 100 mg PO DAILY 06/10/16 Trazodone HCl 37.5 mg PO HS 06/10/16 Lactobacillus Acidophilus [Bacid -] 1 tab PO DAILY tab 06/18/16 Magnesium Oxide [Mag-Ox -] 400 mg PO BID tablet 06/18/16 Ampicillin Trihydrate [Ampicillin Trihydrate Capsule] 500 mg PO Q8H 7 Days 06/19 Family Disease History - Family Disease History Other Family History: Multiple family members with diabetes, daughter cannot remember which specific family members though Physical Exam-Neuro Vital Signs: Vital Signs Temperature 98.8 F 07/16/16 07:29 Pulse Rate 69 07/16/16 07:29 Respiratory Rate 18 07/16/16 07:29 Blood Pressure 99/53 07/16/16 07:29 O2 Sat by Pulse Oximetry (%) 100 07/15/16 21:00 Constitutional: Yes: No Distress Neck: Yes: WNL Cardiovascular: Yes: Regular Rate and Rhythm Labs: CBC, BMP 07/09/16 06:30 07/09/16 06:30 INR, PTT INR 1.18 (0.82-1.09) H 06/20/16 15:00 - Neuro Exam Level Of Consciousness: Yes: Alert (awake but limited orientation, following commands inconsistently , EOMI, counts fingers, no church pain , no focal weaknes though very limited effort, + cogwheeling and tremor , in wheeklchair eating dinner --gait not tested) NIH Stroke Scale - Total Score NIH Stroke Scale Score: 0 Imaging - Results Cat Scan: Report Reviewed, Image Reviewed Problem List - Problems (1) Dementia Code(s): F03.90 - UNSPECIFIED DEMENTIA WITHOUT BEHAVIORAL DISTURBANCE (2) Sepsis Code(s): A41.9 - SEPSIS, UNSPECIFIED ORGANISM Qualifiers: Sepsis type: sepsis due to unspecified organism Qualified Code(s): A41.9 - Sepsis, unspecified organism (3) Headache Code(s): R51 - HEADACHE Assessment/Plan 80 year old patient admitted for UTI with severe sepsis, awaiting placement, called for HERNÁNDEZ x 2-3 3 days, was restless last few days and given ATIVAn, haldol ; pt with hx of dementia, poor HX; not endorsing HERNÁNDEZ now. no family bedside. no clear pain with chewing, scalp tingling. CT HD no acute pathology Headache: - appears stable, - highly doubt temporal arteritis, if lingering check ESR, CRP ( may also be elevated given recent infection) . 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
[2016-07-16] MEDS: QUEtiapine FUMARATE 25 MG TABLET (FP) PO SCH ×2 (10:16→22:06)
--- NOTE | 2016-07-16 10:17 | PN ---
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 (short form) - Note 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: s: appears comfortable, no overnight events, denies any cp pain/sob o: Vital Signs Period Temp Pulse Resp BP Sys/Kerr Pulse Ox Last 24 Hr 98.4 F-98.8 F 69-74 16-20 99-104/53-62 100 awake, nad jvd flat, neck supple ctabl, poor effort rrr, nl s1, s2 no mrg ext without e/c/c alert no jaundice, diaphoresis Current Medications Generic Name Dose Route Start Last Admin Trade Name Freq PRN Reason Stop Dose Admin Acetaminophen 650 mg 06/12/16 10:27 07/14/16 03:00 Tylenol - PO 650 mg Q4H PRN Administration FEVER OR PAIN Ascorbic Acid 500 mg 06/11/16 10:00 07/15/16 10:25 Vitamin C - PO 500 mg DAILY CORNELIO Administration Atorvastatin Calcium 10 mg 06/10/16 22:00 07/15/16 21:53 Lipitor - PO 10 mg HS CORNELIO Administration Collagenase 1 applic 06/11/16 10:00 07/15/16 15:13 Santyl - TP 1 applic DAILY CORNELIO Administration Finasteride 5 mg 06/11/16 10:00 07/15/16 10:25 Proscar - PO 5 mg DAILY CORNELIO Administration Lactobacillus Acidophilus 1 tab 06/11/16 10:00 07/15/16 10:25 Bacid - PO 1 tab DAILY CORNELIO Administration Magnesium Oxide 400 mg 06/16/16 12:30 07/15/16 21:51 Mag-Ox - PO 400 mg BID CORNELIO Administration Metoprolol Succinate 25 mg 06/10/16 19:12 07/15/16 10:25 Toprol Xl - PO 25 mg DAILY CORNELIO Administration Neomycin/Polymyxin/Bacitracin 1 applic 06/27/16 22:00 07/15/16 21:54 Neosporin Topical Ointment - TP 1 applic BID CORNELIO Administration Nystatin/Triamcinolone Acetonide 1 applic 06/19/16 22:00 07/15/16 21:54 Mycolog Ii Cream - TP 1 applic BID CORNELIO Administration Pantoprazole Sodium 40 mg 06/11/16 10:00 07/15/16 10:25 Protonix - PO 40 mg DAILY CORNELIO Administration Potassium Chloride 20 meq 06/27/16 10:00 07/15/16 10:25 K-Dur - PO 20 meq DAILY CORNELIO Administration Potassium Phos/Sodium Phos 1 packet 06/16/16 12:30 07/15/16 21:53 Phos-Nak Packet - PO 1 packet BID CORNELIO Administration Quetiapine Fumarate 12.5 mg 07/14/16 11:00 07/15/16 21:51 Seroquel - PO 12.5 mg BID CORNELIO Administration Tamsulosin HCl 0.4 mg 06/10/16 22:00 07/15/16 21:53 Flomax - PO 0.4 mg HS CORNELIO Administration Trazodone HCl 37.5 mg 06/10/16 22:00 07/15/16 21:51 Desyrel - PO 37.5 mg HS CORNELIO Administration CBC, BMP 07/15/16 07:00 07/15/16 07:00 EKG 06/10 12:21: uninterpretable due to baseline artifact EKG 06/10 14:46 Poor quality/baseline. Sinus tach with diffuse ST abnormalities. anterior ST sagging. possible inferior q waves. low limb voltages. a/p: 80 yo with h/o htn, bph, advanced dementia who sent to ER for hematuria and noted to have UTI with sepsis complicated by elevated cardiac enzymes. positive trops: - borderline trop elevation with flat trend and low ck index, not consistent with acs, likely related to likely demand in setting of infection and tachycardia. - started low dose atorvastatin while here - cont metoprolol - not on asa due to hematuria - echo done here this admit was non-diagnostic due to pt agitation/lack of cooperation - no chest pain symptoms htn - controlled adequately on bb, occasional low values, if persist can decrease toprol to 12.5 (on bb for possible cad as well) sepsis/uti/hematuria - resolved, awaiting placement now, mgm't per pmd/urology/ID
[2016-07-16] MEDS ORDERED: PT OWN MED DRAWER 7, Y5N ONE (10:19)
[2016-07-16] MEDS: POTASSIUM CHLORIDE TABS 20 MEQ TABLET.ER (FP) PO SCH (10:20)
[2016-07-16] MEDS: ASCORBIC ACID 500 MG TABLET (FP) PO SCH (10:23)
[2016-07-16] MEDS: FINASTERIDE 5 MG TABLET (FP) PO SCH (10:23)
[2016-07-16] MEDS: ACETAMINOPHEN 325 MG TABLET (FP) PO PRN (10:23)
[2016-07-16] MEDS: METOPROLOL SUCCINATE 25 MG TAB.SR.24H (FP) PO SCH (10:23)
[2016-07-16] MEDS: PANTOPRAZOLE 40 MG TABLET (FP) PO SCH (10:23)
[2016-07-16] MEDS: MAGNESIUM OXIDE 400 MG TABLET (FP) PO SCH ×2 (10:23→22:04)
[2016-07-16] MEDS: LACTOBACILLUS ACIDOPHILUS 1 EACH TAB (FP) PO SCH (10:23)
[2016-07-16] MEDS: NEOMYCIN/POLYMYXIN/BACITRACIN (TRIPLE ANTIBIOTIC) 28 GM OINTMENT TP SCH ×2 (10:24→22:04)
[2016-07-16] MEDS: NAPH,MB-DB/K PH,MBDB POWDER PACKET PO SCH ×2 (10:24→22:05)
[2016-07-16] MEDS: COLLAGENASE CLOSTRIDIUM HIST. 30 GRAMS TUBE TP SCH (10:24)
[2016-07-16] MEDS: NYSTATIN/TRIAMCINOLONE TOPICAL CREAM 15 GM TUBE TP SCH ×2 (10:25→22:04)
--- NOTE | 2016-07-16 14:28 | PN ---
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, Physician History of Present Illness: stable no new issues - Current Medication List Current Medications: Active Medications Acetaminophen (Tylenol -) 650 mg PO Q4H PRN PRN Reason: FEVER OR PAIN Last Admin: 07/16/16 10:23 Dose: 650 mg Ascorbic Acid (Vitamin C -) 500 mg PO DAILY [facility] Last Admin: 07/16/16 10:23 Dose: 500 mg Atorvastatin Calcium (Lipitor -) 10 mg PO HS [facility] Last Admin: 07/15/16 21:53 Dose: 10 mg Collagenase (Santyl -) 1 applic TP DAILY [facility] Last Admin: 07/16/16 10:24 Dose: 1 applic Finasteride (Proscar -) 5 mg PO DAILY [facility] Last Admin: 07/16/16 10:23 Dose: 5 mg Lactobacillus Acidophilus (Bacid -) 1 tab PO DAILY [facility] Last Admin: 07/16/16 10:23 Dose: 1 tab Magnesium Oxide (Mag-Ox -) 400 mg PO BID [facility] Last Admin: 07/16/16 10:23 Dose: 400 mg Metoprolol Succinate (Toprol Xl -) 25 mg PO DAILY [facility] Last Admin: 07/16/16 10:23 Dose: 25 mg Neomycin/Polymyxin/Bacitracin (Neosporin Topical Ointment -) 1 applic TP BID [facility] Last Admin: 07/16/16 10:24 Dose: 1 applic Nystatin/Triamcinolone Acetonide (Mycolog Ii Cream -) 1 applic TP BID [facility] Last Admin: 07/16/16 10:25 Dose: 1 applic Pantoprazole Sodium (Protonix -) 40 mg PO DAILY [facility] Last Admin: 07/16/16 10:23 Dose: 40 mg Potassium Chloride (K-Dur -) 20 meq PO DAILY [facility] Last Admin: 07/16/16 10:20 Dose: 20 meq Potassium Phos/Sodium Phos (Phos-Nak Packet -) 1 packet PO BID [facility] Last Admin: 07/16/16 10:24 Dose: 1 packet Quetiapine Fumarate (Seroquel -) 12.5 mg PO BID [facility] Last Admin: 07/16/16 10:16 Dose: Not Given Tamsulosin HCl (Flomax -) 0.4 mg PO HS [facility] Last Admin: 07/15/16 21:53 Dose: 0.4 mg Trazodone HCl (Desyrel -) 37.5 mg PO HS [facility] Last Admin: 07/15/16 21:51 Dose: 37.5 mg - Objective Vital Signs: Vital Signs Temperature 98.8 F 07/16/16 07:29 Pulse Rate 69 07/16/16 07:29 Respiratory Rate 18 07/16/16 07:29 Blood Pressure 99/53 07/16/16 07:29 O2 Sat by Pulse Oximetry (%) 100 07/15/16 21:00 Constitutional: Yes: No Distress, Calm Cardiovascular: Yes: Regular Rate and Rhythm, S1, S2 Respiratory: Yes: Regular, CTA Bilaterally Gastrointestinal: Yes: Normal Bowel Sounds, Soft Genitourinary: Yes: [place] Present Extremities: Yes: Other Neurological: Yes: Alert, Other Labs: CBC, BMP 07/15/16 07:00 07/15/16 07:00 INR, PTT INR 1.18 (0.82-1.09) H 06/20/16 15:00 Assessment/Plan Problem List - Problems (1) Sepsis Code(s): A41.9 - SEPSIS, UNSPECIFIED ORGANISM Qualifiers: Sepsis type: sepsis due to unspecified organism Qualified Code(s): A41.9 - Sepsis, unspecified organism (2) UTI (urinary tract infection) Code(s): N39.0 - URINARY TRACT INFECTION, SITE NOT SPECIFIED Qualifiers: Urinary tract infection type: acute cystitis Hematuria presence: with hematuria Qualified Code(s): N30.01 - Acute cystitis with hematuria (3) Lactic acid acidosis Code(s): E87.2 - ACIDOSIS (4) Metabolic encephalopathy Code(s): G93.41 - METABOLIC ENCEPHALOPATHY (5) HTN (hypertension) Code(s): I10 - ESSENTIAL (PRIMARY) HYPERTENSION (6) Dementia Code(s): F03.90 - UNSPECIFIED DEMENTIA WITHOUT BEHAVIORAL DISTURBANCE 7 gram positive bacteremia 8 head aches plan continue current mgmt awaiting placement
[2016-07-16] MEDS: traZODone HCL 50 MG TABLET (FP) PO SCH (22:04)
[2016-07-16] MEDS: TAMSULOSIN HCL 0.4 MG CAP.ER.24H (FP) PO SCH (22:04)
[2016-07-16] MEDS: ATORVASTATIN CA 10 MG TABLET (FP) PO SCH (22:04)
--- NOTE | 2016-07-17 08:46 | PN ---
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 (short form) - Note 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: Headaches improved.. Denies chest pain, shortness of breath, palpitation or dizziness. No change in clinical condition. O/E Vital Signs Period Temp Pulse Resp BP Sys/Kerr Pulse Ox Last 24 Hr 97.8 F-99.1 F 61-90 16-20 100-132/43-74 99-100 Heart regular Lungs clear Abd soft Ext no edema Current Medications Acetaminophen (Tylenol -) 650 mg PO Q4H PRN PRN Reason: FEVER OR PAIN Last Admin: 07/05/16 11:38 Dose: 650 mg Ascorbic Acid (Vitamin C -) 500 mg PO DAILY [facility] Last Admin: 07/06/16 09:44 Dose: 500 mg Atorvastatin Calcium (Lipitor -) 10 mg PO HS [facility] Last Admin: 07/05/16 21:30 Dose: 10 mg Collagenase (Santyl -) 1 applic TP DAILY [facility] Last Admin: 07/06/16 09:45 Dose: 1 applic Dronabinol (Marinol -) 2.5 mg PO BID [facility] Last Admin: 07/06/16 09:44 Dose: 2.5 mg Finasteride (Proscar -) 5 mg PO DAILY [facility] Last Admin: 07/06/16 09:44 Dose: 5 mg Haloperidol (Haldol Injection (Fast Acting) -) 2 mg IM Q4H PRN PRN Reason: AGITATION Last Admin: 06/22/16 02:19 Dose: 2 mg Lactobacillus Acidophilus (Bacid -) 1 tab PO DAILY [facility] Last Admin: 07/06/16 09:44 Dose: 1 tab Magnesium Oxide (Mag-Ox -) 400 mg PO BID [facility] Last Admin: 07/06/16 09:44 Dose: 400 mg Metoprolol Succinate (Toprol Xl -) 25 mg PO DAILY [facility] Last Admin: 07/06/16 09:44 Dose: 25 mg Neomycin/Polymyxin/Bacitracin (Neosporin Topical Ointment -) 1 applic TP BID [facility] Last Admin: 07/06/16 09:45 Dose: 1 applic Nystatin/Triamcinolone Acetonide (Mycolog Ii Cream -) 1 applic TP BID [facility] Last Admin: 07/06/16 09:45 Dose: 1 applic Pantoprazole Sodium (Protonix -) 40 mg PO DAILY [facility] Last Admin: 07/06/16 09:44 Dose: 40 mg Potassium Chloride (K-Dur -) 20 meq PO DAILY [facility] Last Admin: 07/06/16 09:44 Dose: 20 meq Potassium Phos/Sodium Phos (Phos-Nak Packet -) 1 packet PO BID [facility] Last Admin: 07/06/16 09:45 Dose: 1 packet Tamsulosin HCl (Flomax -) 0.4 mg PO HS [facility] Last Admin: 07/05/16 21:30 Dose: 0.4 mg Trazodone HCl (Desyrel -) 37.5 mg PO HS [facility] Last Admin: 07/05/16 21:30 Dose: 37.5 mg CBC, BMP 07/15/16 07:00 07/15/16 07:00 A&P Assessment/Plan Headache Stable Neurology consult appreciated CT head: Nil acute. Tylenol prn. (1) Sepsis Code(s): A41.9 - SEPSIS, UNSPECIFIED ORGANISM Resolved Qualifiers: Sepsis type: sepsis due to unspecified organism Qualified Code(s): A41.9 - Sepsis, unspecified organism (2) UTI (urinary tract infection) Code(s): N39.0 - URINARY TRACT INFECTION, SITE NOT SPECIFIED Afebrile Qualifiers: Urinary tract infection type: acute cystitis Hematuria presence: with hematuria Qualified Code(s): N30.01 - Acute cystitis with hematuria Resolved (3) Metabolic encephalopathy Code(s): G93.41 - METABOLIC ENCEPHALOPATHY stable (4) HTN (hypertension) Code(s): I10 - ESSENTIAL (PRIMARY) HYPERTENSION Controlled (5) Dementia Code(s): F03.90 - UNSPECIFIED DEMENTIA WITHOUT BEHAVIORAL DISTURBANCE Awaiting discharge planning and placement
[2016-07-17] MEDS: PANTOPRAZOLE 40 MG TABLET (FP) PO SCH (09:59)
[2016-07-17] MEDS: LACTOBACILLUS ACIDOPHILUS 1 EACH TAB (FP) PO SCH (09:59)
[2016-07-17] MEDS: MAGNESIUM OXIDE 400 MG TABLET (FP) PO SCH ×2 (09:59→21:40)
[2016-07-17] MEDS: ASCORBIC ACID 500 MG TABLET (FP) PO SCH (09:59)
[2016-07-17] MEDS: FINASTERIDE 5 MG TABLET (FP) PO SCH (09:59)
[2016-07-17] MEDS: NEOMYCIN/POLYMYXIN/BACITRACIN (TRIPLE ANTIBIOTIC) 28 GM OINTMENT TP SCH ×2 (10:01→22:06)
[2016-07-17] MEDS: QUEtiapine FUMARATE 25 MG TABLET (FP) PO SCH ×2 (10:03→21:41)
[2016-07-17] MEDS: POTASSIUM CHLORIDE TABS 20 MEQ TABLET.ER (FP) PO SCH (10:03)
[2016-07-17] MEDS: NYSTATIN/TRIAMCINOLONE TOPICAL CREAM 15 GM TUBE TP SCH ×2 (10:04→21:42)
[2016-07-17] MEDS: NAPH,MB-DB/K PH,MBDB POWDER PACKET PO SCH ×2 (10:04→21:42)
[2016-07-17] MEDS: METOPROLOL SUCCINATE 25 MG TAB.SR.24H (FP) PO SCH (10:05)
[2016-07-17] MEDS: COLLAGENASE CLOSTRIDIUM HIST. 30 GRAMS TUBE TP SCH (10:05)
--- NOTE | 2016-07-17 12:11 | PN ---
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 (short form) - Note 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: s: appears comfortable, no overnight events, denies any cp pain, sob dizzy, abd pain o: Vital Signs Period Temp Pulse Resp BP Sys/Kerr Pulse Ox Last 24 Hr 97.8 F-99.1 F 61-90 16-20 100-132/43-74 99 awake, nad jvd flat, neck supple ctabl, poor effort rrr, nl s1, s2 no mrg ext without e/c/c alert no jaundice, diaphoresis Current Medications Generic Name Dose Route Start Last Admin Trade Name Freq PRN Reason Stop Dose Admin Acetaminophen 650 mg 06/12/16 10:27 07/16/16 10:23 Tylenol - PO 650 mg Q4H PRN Administration FEVER OR PAIN Ascorbic Acid 500 mg 06/11/16 10:00 07/17/16 09:59 Vitamin C - PO 500 mg DAILY CORNELIO Administration Atorvastatin Calcium 10 mg 06/10/16 22:00 07/16/16 22:04 Lipitor - PO 10 mg HS CORNELIO Administration Collagenase 1 applic 06/11/16 10:00 07/17/16 10:05 Santyl - TP 1 applic DAILY CORNELIO Administration Finasteride 5 mg 06/11/16 10:00 07/17/16 09:59 Proscar - PO 5 mg DAILY CORNELIO Administration Lactobacillus Acidophilus 1 tab 06/11/16 10:00 07/17/16 09:59 Bacid - PO 1 tab DAILY CORNELIO Administration Magnesium Oxide 400 mg 06/16/16 12:30 07/17/16 09:59 Mag-Ox - PO 400 mg BID CORNELIO Administration Metoprolol Succinate 12.5 mg 07/18/16 10:00 Toprol Xl - PO DAILY CORNELIO Neomycin/Polymyxin/Bacitracin 1 applic 06/27/16 22:00 07/17/16 10:01 Neosporin Topical Ointment - TP 1 applic BID CORNELIO Administration Nystatin/Triamcinolone Acetonide 1 applic 06/19/16 22:00 07/17/16 10:04 Mycolog Ii Cream - TP 1 applic BID CORNELIO Administration Pantoprazole Sodium 40 mg 06/11/16 10:00 07/17/16 09:59 Protonix - PO 40 mg DAILY CORNELIO Administration Potassium Chloride 20 meq 06/27/16 10:00 07/17/16 10:03 K-Dur - PO 20 meq DAILY CORNELIO Administration Potassium Phos/Sodium Phos 1 packet 06/16/16 12:30 07/17/16 10:04 Phos-Nak Packet - PO 1 packet BID CORNELIO Administration Quetiapine Fumarate 12.5 mg 07/14/16 11:00 07/17/16 10:03 Seroquel - PO 12.5 mg BID CORNELIO Administration Tamsulosin HCl 0.4 mg 06/10/16 22:00 07/16/16 22:04 Flomax - PO 0.4 mg HS CORNELIO Administration Trazodone HCl 37.5 mg 06/10/16 22:00 07/16/16 22:04 Desyrel - PO 37.5 mg HS CORNELIO Administration CBC, BMP 07/15/16 07:00 07/15/16 07:00 EKG 06/10 12:21: uninterpretable due to baseline artifact EKG 06/10 14:46 Poor quality/baseline. Sinus tach with diffuse ST abnormalities. anterior ST sagging. possible inferior q waves. low limb voltages. a/p: 80 yo with h/o htn, bph, advanced dementia who sent to ER for hematuria and noted to have UTI with sepsis complicated by elevated cardiac enzymes. positive trops: - borderline trop elevation with flat trend and low ck index, not consistent with acs, likely related to likely demand in setting of infection and tachycardia. - started low dose atorvastatin while here - cont metoprolol - not on asa due to hematuria - echo done here this admit was non-diagnostic due to pt agitation/lack of cooperation - no chest pain symptoms htn - controlled adequately on bb but with occasional low values so will decrease to toprol 12.5 qd (on bb for possible cad as well). sepsis/uti/hematuria - resolved, awaiting placement now, mgm't per pmd/urology/ID
[2016-07-17] MEDS: TAMSULOSIN HCL 0.4 MG CAP.ER.24H (FP) PO SCH (21:40)
[2016-07-17] MEDS: ACETAMINOPHEN 325 MG TABLET (FP) PO PRN (21:41)
[2016-07-17] MEDS: ATORVASTATIN CA 10 MG TABLET (FP) PO SCH (21:41)
[2016-07-17] MEDS: traZODone HCL 50 MG TABLET (FP) PO SCH (21:42)
--- NOTE | 2016-07-18 08:13 | PN ---
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 (short form) - Note 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: PATIENT RESTING IN BED / AWAITING PLACEMENT . AWAKE / NO DISTRESS / DEMENTED WITH ONE WORD ANSWERS. Selected Entries Laboratory Tests 06/20/16 07/15/16 07/15/16 15:00 07:00 07:00 WBC 7.1 RBC 3.75 L Hgb 10.5 L Hct 32.0 L Plt Count 211 D INR 1.18 H PTT (Actin FS) 32.1 Sodium 140 Potassium 4.4 Chloride 104 Carbon Dioxide 29 Anion Gap 7 L BUN 20 H Creatinine 0.7 D Creat Clearance w eGFR > 60 Random Glucose 67 L Calcium 8.7 Total Bilirubin 0.6 AST 20 ALT 25 D Alkaline Phosphatase 86 Laboratory Tests P/E <> AWAKE / COOPERATIVE HEENT <> NECK SUPPLE / CAROTIDS 2 + COR <> S 1 S 2 CHEST <> CLEAR P & A ABD <> SOFT / NONTENEDER EXT : NO CALF TENDERNESS. IMP: UTI / ENTEROCOCCUS ENTEROCOCCUS SEPSIS DEMENTIA NSTEMI PLAN : AWAITING SNF TRANSFER NO CHANGE IN MEDS . SUPPORTIVE CARE
--- NOTE | 2016-07-18 08:34 | PN ---
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 (short form) - Note 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: f/u Neurology: No new complaints , no HERNÁNDEZ today or yesterday. PE: A & O to self , demented, no dysphasia or dysarthria CN: 2-12 INT, no face asymmetria or gaze preference Motor: moves all ext Sensory: INT LT/PP Cerebellum: INT FN DTR: 1+ all Gait: deferred cv: RRR Lungs : CTA b/l A/P: 80 year old patient admitted for UTI with severe sepsis, awaiting placement, called for HERNÁNDEZ x 2-3 3 days, was restless last few days and given ATIVAn, haldol ; pt with hx of dementia, poor HX; not endorsing HERNÁNDEZ now. no family bedside. no clear pain with chewing, scalp tingling. 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 [phone]
[2016-07-18] MEDS: PANTOPRAZOLE 40 MG TABLET (FP) PO SCH (09:30)
[2016-07-18] MEDS: LACTOBACILLUS ACIDOPHILUS 1 EACH TAB (FP) PO SCH (09:30)
[2016-07-18] MEDS: ASCORBIC ACID 500 MG TABLET (FP) PO SCH (09:30)
[2016-07-18] MEDS: MAGNESIUM OXIDE 400 MG TABLET (FP) PO SCH ×2 (09:30→21:32)
[2016-07-18] MEDS: FINASTERIDE 5 MG TABLET (FP) PO SCH (09:31)
[2016-07-18] MEDS: NAPH,MB-DB/K PH,MBDB POWDER PACKET PO SCH ×2 (09:31→21:38)
[2016-07-18] MEDS: NEOMYCIN/POLYMYXIN/BACITRACIN (TRIPLE ANTIBIOTIC) 28 GM OINTMENT TP SCH ×2 (09:33→21:38)
[2016-07-18] MEDS: NYSTATIN/TRIAMCINOLONE TOPICAL CREAM 15 GM TUBE TP SCH ×2 (09:33→21:38)
[2016-07-18] MEDS: COLLAGENASE CLOSTRIDIUM HIST. 30 GRAMS TUBE TP SCH (09:34)
[2016-07-18] MEDS: POTASSIUM CHLORIDE TABS 20 MEQ TABLET.ER (FP) PO SCH (09:34)
[2016-07-18] MEDS: METOPROLOL SUCCINATE 25 MG TAB.SR.24H (FP) PO SCH (09:35)
[2016-07-18] MEDS: QUEtiapine FUMARATE 25 MG TABLET (FP) PO SCH ×2 (09:35→21:33)
--- NOTE | 2016-07-18 13:51 | PN ---
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, Physician History of Present Illness: stable no new issues - Current Medication List Current Medications: Active Medications Acetaminophen (Tylenol -) 650 mg PO Q4H PRN PRN Reason: FEVER OR PAIN Last Admin: 07/17/16 21:41 Dose: 650 mg Ascorbic Acid (Vitamin C -) 500 mg PO DAILY [facility] Last Admin: 07/18/16 09:30 Dose: 500 mg Atorvastatin Calcium (Lipitor -) 10 mg PO HS [facility] Last Admin: 07/17/16 21:41 Dose: 10 mg Collagenase (Santyl -) 1 applic TP DAILY [facility] Last Admin: 07/18/16 09:34 Dose: 1 applic Finasteride (Proscar -) 5 mg PO DAILY [facility] Last Admin: 07/18/16 09:31 Dose: 5 mg Lactobacillus Acidophilus (Bacid -) 1 tab PO DAILY [facility] Last Admin: 07/18/16 09:30 Dose: 1 tab Magnesium Oxide (Mag-Ox -) 400 mg PO BID [facility] Last Admin: 07/18/16 09:30 Dose: 400 mg Metoprolol Succinate (Toprol Xl -) 12.5 mg PO DAILY [facility] Last Admin: 07/18/16 09:35 Dose: Not Given Neomycin/Polymyxin/Bacitracin (Neosporin Topical Ointment -) 1 applic TP BID [facility] Last Admin: 07/18/16 09:33 Dose: 1 applic Nystatin/Triamcinolone Acetonide (Mycolog Ii Cream -) 1 applic TP BID [facility] Last Admin: 07/18/16 09:33 Dose: 1 applic Pantoprazole Sodium (Protonix -) 40 mg PO DAILY [facility] Last Admin: 07/18/16 09:30 Dose: 40 mg Potassium Chloride (K-Dur -) 20 meq PO DAILY [facility] Last Admin: 07/18/16 09:34 Dose: 20 meq Potassium Phos/Sodium Phos (Phos-Nak Packet -) 1 packet PO BID [facility] Last Admin: 07/18/16 09:31 Dose: 1 packet Quetiapine Fumarate (Seroquel -) 12.5 mg PO BID [facility] Last Admin: 07/18/16 09:35 Dose: 12.5 mg Tamsulosin HCl (Flomax -) 0.4 mg PO HS [facility] Last Admin: 07/17/16 21:40 Dose: 0.4 mg Trazodone HCl (Desyrel -) 37.5 mg PO HS [facility] Last Admin: 07/17/16 21:42 Dose: 37.5 mg - Objective Vital Signs: Vital Signs Temperature 98.2 F 07/17/16 20:25 Pulse Rate 96 H 07/17/16 20:25 Respiratory Rate 18 07/17/16 20:25 Blood Pressure 128/85 07/17/16 20:25 O2 Sat by Pulse Oximetry (%) 99 07/17/16 20:21 Constitutional: Yes: No Distress, Calm Cardiovascular: Yes: S1, S2 Respiratory: Yes: Regular, CTA Bilaterally Gastrointestinal: Yes: Normal Bowel Sounds, Soft Genitourinary: Yes: [place] Present Musculoskeletal: Yes: WNL Extremities: Yes: WNL Neurological: Yes: Alert, Other Labs: CBC, BMP 07/15/16 07:00 07/15/16 07:00 INR, PTT INR 1.18 (0.82-1.09) H 06/20/16 15:00 Assessment/Plan Problem List - Problems (1) Sepsis Code(s): A41.9 - SEPSIS, UNSPECIFIED ORGANISM Qualifiers: Sepsis type: sepsis due to unspecified organism Qualified Code(s): A41.9 - Sepsis, unspecified organism (2) UTI (urinary tract infection) Code(s): N39.0 - URINARY TRACT INFECTION, SITE NOT SPECIFIED Qualifiers: Urinary tract infection type: acute cystitis Hematuria presence: with hematuria Qualified Code(s): N30.01 - Acute cystitis with hematuria (3) Lactic acid acidosis Code(s): E87.2 - ACIDOSIS (4) Metabolic encephalopathy Code(s): G93.41 - METABOLIC ENCEPHALOPATHY (5) HTN (hypertension) Code(s): I10 - ESSENTIAL (PRIMARY) HYPERTENSION (6) Dementia Code(s): F03.90 - UNSPECIFIED DEMENTIA WITHOUT BEHAVIORAL DISTURBANCE 7 gram positive bacteremia 8 head aches plan continue current mgmt awaiting placement rest as per primary
--- NOTE | 2016-07-18 13:51 | PN ---
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, Physician History of Present Illness: stable no new issues - Current Medication List Current Medications: Active Medications Acetaminophen (Tylenol -) 650 mg PO Q4H PRN PRN Reason: FEVER OR PAIN Last Admin: 07/17/16 21:41 Dose: 650 mg Ascorbic Acid (Vitamin C -) 500 mg PO DAILY [facility] Last Admin: 07/18/16 09:30 Dose: 500 mg Atorvastatin Calcium (Lipitor -) 10 mg PO HS [facility] Last Admin: 07/17/16 21:41 Dose: 10 mg Collagenase (Santyl -) 1 applic TP DAILY [facility] Last Admin: 07/18/16 09:34 Dose: 1 applic Finasteride (Proscar -) 5 mg PO DAILY [facility] Last Admin: 07/18/16 09:31 Dose: 5 mg Lactobacillus Acidophilus (Bacid -) 1 tab PO DAILY [facility] Last Admin: 07/18/16 09:30 Dose: 1 tab Magnesium Oxide (Mag-Ox -) 400 mg PO BID [facility] Last Admin: 07/18/16 09:30 Dose: 400 mg Metoprolol Succinate (Toprol Xl -) 12.5 mg PO DAILY [facility] Last Admin: 07/18/16 09:35 Dose: Not Given Neomycin/Polymyxin/Bacitracin (Neosporin Topical Ointment -) 1 applic TP BID [facility] Last Admin: 07/18/16 09:33 Dose: 1 applic Nystatin/Triamcinolone Acetonide (Mycolog Ii Cream -) 1 applic TP BID [facility] Last Admin: 07/18/16 09:33 Dose: 1 applic Pantoprazole Sodium (Protonix -) 40 mg PO DAILY [facility] Last Admin: 07/18/16 09:30 Dose: 40 mg Potassium Chloride (K-Dur -) 20 meq PO DAILY [facility] Last Admin: 07/18/16 09:34 Dose: 20 meq Potassium Phos/Sodium Phos (Phos-Nak Packet -) 1 packet PO BID [facility] Last Admin: 07/18/16 09:31 Dose: 1 packet Quetiapine Fumarate (Seroquel -) 12.5 mg PO BID [facility] Last Admin: 07/18/16 09:35 Dose: 12.5 mg Tamsulosin HCl (Flomax -) 0.4 mg PO HS [facility] Last Admin: 07/17/16 21:40 Dose: 0.4 mg Trazodone HCl (Desyrel -) 37.5 mg PO HS [facility] Last Admin: 07/17/16 21:42 Dose: 37.5 mg - Objective Vital Signs: Vital Signs Temperature 98.2 F 07/17/16 20:25 Pulse Rate 96 H 07/17/16 20:25 Respiratory Rate 18 07/17/16 20:25 Blood Pressure 128/85 07/17/16 20:25 O2 Sat by Pulse Oximetry (%) 99 07/17/16 20:21 Constitutional: Yes: No Distress, Calm Cardiovascular: Yes: S1, S2 Respiratory: Yes: Regular, CTA Bilaterally Gastrointestinal: Yes: Normal Bowel Sounds, Soft Musculoskeletal: Yes: WNL Extremities: Yes: WNL Neurological: Yes: Alert Labs: CBC, BMP 07/15/16 07:00 07/15/16 07:00 INR, PTT INR 1.18 (0.82-1.09) H 06/20/16 15:00 Assessment/Plan Problem List - Problems (1) Sepsis Code(s): A41.9 - SEPSIS, UNSPECIFIED ORGANISM Qualifiers: Sepsis type: sepsis due to unspecified organism Qualified Code(s): A41.9 - Sepsis, unspecified organism (2) UTI (urinary tract infection) Code(s): N39.0 - URINARY TRACT INFECTION, SITE NOT SPECIFIED Qualifiers: Urinary tract infection type: acute cystitis Hematuria presence: with hematuria Qualified Code(s): N30.01 - Acute cystitis with hematuria (3) Lactic acid acidosis Code(s): E87.2 - ACIDOSIS (4) Metabolic encephalopathy Code(s): G93.41 - METABOLIC ENCEPHALOPATHY (5) HTN (hypertension) Code(s): I10 - ESSENTIAL (PRIMARY) HYPERTENSION (6) Dementia Code(s): F03.90 - UNSPECIFIED DEMENTIA WITHOUT BEHAVIORAL DISTURBANCE 7 gram positive bacteremia 8 head aches plan continue current mgmt awaiting placement rest as per primary
[2016-07-18] MEDS: ACETAMINOPHEN 325 MG TABLET (FP) PO PRN (14:36)
[2016-07-18] MEDS: traZODone HCL 50 MG TABLET (FP) PO SCH (21:32)
[2016-07-18] MEDS: ATORVASTATIN CA 10 MG TABLET (FP) PO SCH (21:32)
[2016-07-18] MEDS: TAMSULOSIN HCL 0.4 MG CAP.ER.24H (FP) PO SCH (21:32)
[2016-07-19] MEDS: ACETAMINOPHEN 325 MG TABLET (FP) PO PRN ×3 (02:39→23:00)
--- NOTE | 2016-07-19 07:44 | PN ---
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 (short form) - Note 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: PATIENT AWAKE BUT NONVERBAL NO APPARENT ACUTE DISTRESS. Selected Entries 07/19/16 05:32 Temperature 98.2 F Pulse Rate 64 Respiratory 18 Rate Blood Pressure 118/72 Selected Entries Laboratory Tests Laboratory Tests P/E <> AWAKE <> NO DISTRESS. HEENT <> NECK SUPPLE / CAROTIDS 2 + COR <> S 1 S 2 CHEST <> FEW SCATTERED RHONCHI ABD <> SOFT / NONTENEDER EXT : NO CALF TENDERNESS / NO EDEMA IMP: UTI / ENTEROCOCCUS ENTEROCOCCUS SEPSIS DEMENTIA NSTEMI PLAN : CONTINUE SUPPORTIVE CARE AWAITING SNF TRANSFER
[2016-07-19] MEDS: ASCORBIC ACID 500 MG TABLET (FP) PO SCH (09:28)
[2016-07-19] MEDS: POTASSIUM CHLORIDE TABS 20 MEQ TABLET.ER (FP) PO SCH (09:28)
[2016-07-19] MEDS: LACTOBACILLUS ACIDOPHILUS 1 EACH TAB (FP) PO SCH (09:28)
[2016-07-19] MEDS: MAGNESIUM OXIDE 400 MG TABLET (FP) PO SCH ×2 (09:28→21:43)
[2016-07-19] MEDS: PANTOPRAZOLE 40 MG TABLET (FP) PO SCH (09:28)
[2016-07-19] MEDS: FINASTERIDE 5 MG TABLET (FP) PO SCH (09:28)
[2016-07-19] MEDS: NAPH,MB-DB/K PH,MBDB POWDER PACKET PO SCH ×2 (09:28→21:44)
[2016-07-19] MEDS: COLLAGENASE CLOSTRIDIUM HIST. 30 GRAMS TUBE TP SCH (09:29)
[2016-07-19] MEDS: METOPROLOL SUCCINATE 25 MG TAB.SR.24H (FP) PO SCH (09:30)
[2016-07-19] MEDS: QUEtiapine FUMARATE 25 MG TABLET (FP) PO SCH ×2 (09:33→21:43)
[2016-07-19] MEDS: NYSTATIN/TRIAMCINOLONE TOPICAL CREAM 15 GM TUBE TP SCH ×2 (09:34→21:45)
[2016-07-19] MEDS: NEOMYCIN/POLYMYXIN/BACITRACIN (TRIPLE ANTIBIOTIC) 28 GM OINTMENT TP SCH ×2 (09:34→21:45)
--- NOTE | 2016-07-19 12:23 | PN ---
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, Physician History of Present Illness: no new issues patient doing well - Current Medication List Current Medications: Active Medications Acetaminophen (Tylenol -) 650 mg PO Q4H PRN PRN Reason: FEVER OR PAIN Last Admin: 07/19/16 09:40 Dose: 650 mg Ascorbic Acid (Vitamin C -) 500 mg PO DAILY [facility] Last Admin: 07/19/16 09:28 Dose: 500 mg Atorvastatin Calcium (Lipitor -) 10 mg PO HS [facility] Last Admin: 07/18/16 21:32 Dose: 10 mg Collagenase (Santyl -) 1 applic TP DAILY [facility] Last Admin: 07/19/16 09:29 Dose: 1 applic Finasteride (Proscar -) 5 mg PO DAILY [facility] Last Admin: 07/19/16 09:28 Dose: 5 mg Lactobacillus Acidophilus (Bacid -) 1 tab PO DAILY [facility] Last Admin: 07/19/16 09:28 Dose: 1 tab Magnesium Oxide (Mag-Ox -) 400 mg PO BID [facility] Last Admin: 07/19/16 09:28 Dose: 400 mg Metoprolol Succinate (Toprol Xl -) 12.5 mg PO DAILY [facility] Last Admin: 07/19/16 09:30 Dose: 12.5 mg Neomycin/Polymyxin/Bacitracin (Neosporin Topical Ointment -) 1 applic TP BID [facility] Last Admin: 07/19/16 09:34 Dose: 1 applic Nystatin/Triamcinolone Acetonide (Mycolog Ii Cream -) 1 applic TP BID [facility] Last Admin: 07/19/16 09:34 Dose: 1 applic Pantoprazole Sodium (Protonix -) 40 mg PO DAILY [facility] Last Admin: 07/19/16 09:28 Dose: 40 mg Potassium Chloride (K-Dur -) 20 meq PO DAILY [facility] Last Admin: 07/19/16 09:28 Dose: 20 meq Potassium Phos/Sodium Phos (Phos-Nak Packet -) 1 packet PO BID [facility] Last Admin: 07/19/16 09:28 Dose: 1 packet Quetiapine Fumarate (Seroquel -) 12.5 mg PO BID [facility] Last Admin: 07/19/16 09:33 Dose: 12.5 mg Tamsulosin HCl (Flomax -) 0.4 mg PO HS [facility] Last Admin: 07/18/16 21:32 Dose: 0.4 mg Trazodone HCl (Desyrel -) 37.5 mg PO HS [facility] Last Admin: 07/18/16 21:32 Dose: 37.5 mg - Objective Vital Signs: Vital Signs Temperature 97.8 F 07/19/16 10:00 Pulse Rate 62 07/19/16 10:00 Respiratory Rate 20 07/19/16 10:00 Blood Pressure 114/64 07/19/16 10:00 O2 Sat by Pulse Oximetry (%) 97 07/19/16 09:00 Constitutional: Yes: No Distress, Calm Cardiovascular: Yes: S1, S2 Respiratory: Yes: Regular, CTA Bilaterally Genitourinary: Yes: [place] Present Musculoskeletal: Yes: WNL Extremities: Yes: WNL Neurological: Yes: Alert, Other Psychiatric: Yes: Other Labs: CBC, BMP 07/15/16 07:00 07/15/16 07:00 INR, PTT INR 1.18 (0.82-1.09) H 06/20/16 15:00 Assessment/Plan Problem List - Problems (1) Sepsis Code(s): A41.9 - SEPSIS, UNSPECIFIED ORGANISM Qualifiers: Sepsis type: sepsis due to unspecified organism Qualified Code(s): A41.9 - Sepsis, unspecified organism (2) UTI (urinary tract infection) Code(s): N39.0 - URINARY TRACT INFECTION, SITE NOT SPECIFIED Qualifiers: Urinary tract infection type: acute cystitis Hematuria presence: with hematuria Qualified Code(s): N30.01 - Acute cystitis with hematuria (3) Lactic acid acidosis Code(s): E87.2 - ACIDOSIS (4) Metabolic encephalopathy Code(s): G93.41 - METABOLIC ENCEPHALOPATHY (5) HTN (hypertension) Code(s): I10 - ESSENTIAL (PRIMARY) HYPERTENSION (6) Dementia Code(s): F03.90 - UNSPECIFIED DEMENTIA WITHOUT BEHAVIORAL DISTURBANCE 7 gram positive bacteremia 8 head aches plan continue current mgmt awaiting placement rest as per primary
[2016-07-19] MEDS: traZODone HCL 50 MG TABLET (FP) PO SCH (21:43)
[2016-07-19] MEDS: ATORVASTATIN CA 10 MG TABLET (FP) PO SCH (21:43)
[2016-07-19] MEDS: TAMSULOSIN HCL 0.4 MG CAP.ER.24H (FP) PO SCH (21:43)
[2016-07-20] MEDS: ACETAMINOPHEN 325 MG TABLET (FP) PO PRN ×4 (03:06→22:51)
--- NOTE | 2016-07-20 07:14 | PN ---
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 (short form) - Note 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: The patient was admitted with baseline dementia, treated for enterococcus sepsis associated with urinary tract infection, and we were consulted for headache and agitation. He is now calm and hasn't been complaining of headache. He is apparently at his impaired baseline and awaiting placement. Will continue to monitor agitation and sundowning. Thanks.
[2016-07-20] MEDS: ASCORBIC ACID 500 MG TABLET (FP) PO SCH (09:09)
[2016-07-20] MEDS: PANTOPRAZOLE 40 MG TABLET (FP) PO SCH (09:09)
[2016-07-20] MEDS: LACTOBACILLUS ACIDOPHILUS 1 EACH TAB (FP) PO SCH (09:09)
[2016-07-20] MEDS: METOPROLOL SUCCINATE 25 MG TAB.SR.24H (FP) PO SCH (09:10)
[2016-07-20] MEDS: MAGNESIUM OXIDE 400 MG TABLET (FP) PO SCH ×2 (09:10→21:51)
[2016-07-20] MEDS: POTASSIUM CHLORIDE TABS 20 MEQ TABLET.ER (FP) PO SCH (09:10)
[2016-07-20] MEDS: FINASTERIDE 5 MG TABLET (FP) PO SCH (09:10)
[2016-07-20] MEDS: NYSTATIN/TRIAMCINOLONE TOPICAL CREAM 15 GM TUBE TP SCH ×2 (09:11→21:52)
[2016-07-20] MEDS: NEOMYCIN/POLYMYXIN/BACITRACIN (TRIPLE ANTIBIOTIC) 28 GM OINTMENT TP SCH ×2 (09:11→21:52)
[2016-07-20] MEDS: NAPH,MB-DB/K PH,MBDB POWDER PACKET PO SCH ×2 (09:12→21:51)
[2016-07-20] MEDS: COLLAGENASE CLOSTRIDIUM HIST. 30 GRAMS TUBE TP SCH (09:12)
[2016-07-20] MEDS: QUEtiapine FUMARATE 25 MG TABLET (FP) PO SCH ×2 (09:13→21:51)
--- NOTE | 2016-07-20 10:36 | PN ---
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 (short form) - Note 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: No acute event overnight. Denies chest pain, shortness of breath, palpitation or dizziness. No change in clinical condition. O/E Vital Signs Period Temp Pulse Resp BP Sys/Kerr Pulse Ox Last 24 Hr 98.1 F-98.8 F 57-84 16-20 102-130/47-72 97-97 Heart regular Lungs clear Abd soft Ext no edema Current Medications Acetaminophen (Tylenol -) 650 mg PO Q4H PRN PRN Reason: FEVER OR PAIN Last Admin: 07/05/16 11:38 Dose: 650 mg Ascorbic Acid (Vitamin C -) 500 mg PO DAILY [facility] Last Admin: 07/06/16 09:44 Dose: 500 mg Atorvastatin Calcium (Lipitor -) 10 mg PO HS [facility] Last Admin: 07/05/16 21:30 Dose: 10 mg Collagenase (Santyl -) 1 applic TP DAILY [facility] Last Admin: 07/06/16 09:45 Dose: 1 applic Dronabinol (Marinol -) 2.5 mg PO BID [facility] Last Admin: 07/06/16 09:44 Dose: 2.5 mg Finasteride (Proscar -) 5 mg PO DAILY [facility] Last Admin: 07/06/16 09:44 Dose: 5 mg Haloperidol (Haldol Injection (Fast Acting) -) 2 mg IM Q4H PRN PRN Reason: AGITATION Last Admin: 06/22/16 02:19 Dose: 2 mg Lactobacillus Acidophilus (Bacid -) 1 tab PO DAILY [facility] Last Admin: 07/06/16 09:44 Dose: 1 tab Magnesium Oxide (Mag-Ox -) 400 mg PO BID [facility] Last Admin: 07/06/16 09:44 Dose: 400 mg Metoprolol Succinate (Toprol Xl -) 25 mg PO DAILY [facility] Last Admin: 07/06/16 09:44 Dose: 25 mg Neomycin/Polymyxin/Bacitracin (Neosporin Topical Ointment -) 1 applic TP BID [facility] Last Admin: 07/06/16 09:45 Dose: 1 applic Nystatin/Triamcinolone Acetonide (Mycolog Ii Cream -) 1 applic TP BID [facility] Last Admin: 07/06/16 09:45 Dose: 1 applic Pantoprazole Sodium (Protonix -) 40 mg PO DAILY [facility] Last Admin: 07/06/16 09:44 Dose: 40 mg Potassium Chloride (K-Dur -) 20 meq PO DAILY [facility] Last Admin: 07/06/16 09:44 Dose: 20 meq Potassium Phos/Sodium Phos (Phos-Nak Packet -) 1 packet PO BID [facility] Last Admin: 07/06/16 09:45 Dose: 1 packet Tamsulosin HCl (Flomax -) 0.4 mg PO HS [facility] Last Admin: 07/05/16 21:30 Dose: 0.4 mg Trazodone HCl (Desyrel -) 37.5 mg PO HS [facility] Last Admin: 07/05/16 21:30 Dose: 37.5 mg CBC, BMP 07/15/16 07:00 07/15/16 07:00 A&P Assessment/Plan Headache Stable Neurology follow up appreciated CT head: Nil acute. Tylenol prn. (1) Sepsis Code(s): A41.9 - SEPSIS, UNSPECIFIED ORGANISM Resolved Qualifiers: Sepsis type: sepsis due to unspecified organism Qualified Code(s): A41.9 - Sepsis, unspecified organism (2) UTI (urinary tract infection) Code(s): N39.0 - URINARY TRACT INFECTION, SITE NOT SPECIFIED Afebrile Qualifiers: Urinary tract infection type: acute cystitis Hematuria presence: with hematuria Qualified Code(s): N30.01 - Acute cystitis with hematuria Resolved (3) Metabolic encephalopathy Code(s): G93.41 - METABOLIC ENCEPHALOPATHY stable (4) HTN (hypertension) Code(s): I10 - ESSENTIAL (PRIMARY) HYPERTENSION Controlled (5) Dementia Code(s): F03.90 - UNSPECIFIED DEMENTIA WITHOUT BEHAVIORAL DISTURBANCE Awaiting discharge planning and placement
--- NOTE | 2016-07-20 13:48 | PN ---
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, Physician History of Present Illness: stable doing well no events overnight - Current Medication List Current Medications: Active Medications Acetaminophen (Tylenol -) 650 mg PO Q4H PRN PRN Reason: FEVER OR PAIN Last Admin: 07/20/16 10:43 Dose: 650 mg Ascorbic Acid (Vitamin C -) 500 mg PO DAILY [facility] Last Admin: 07/20/16 09:09 Dose: 500 mg Atorvastatin Calcium (Lipitor -) 10 mg PO HS [facility] Last Admin: 07/19/16 21:43 Dose: 10 mg Collagenase (Santyl -) 1 applic TP DAILY [facility] Last Admin: 07/20/16 09:12 Dose: 1 applic Finasteride (Proscar -) 5 mg PO DAILY [facility] Last Admin: 07/20/16 09:10 Dose: 5 mg Lactobacillus Acidophilus (Bacid -) 1 tab PO DAILY [facility] Last Admin: 07/20/16 09:09 Dose: 1 tab Magnesium Oxide (Mag-Ox -) 400 mg PO BID [facility] Last Admin: 07/20/16 09:10 Dose: 400 mg Metoprolol Succinate (Toprol Xl -) 12.5 mg PO DAILY [facility] Last Admin: 07/20/16 09:10 Dose: 12.5 mg Neomycin/Polymyxin/Bacitracin (Neosporin Topical Ointment -) 1 applic TP BID [facility] Last Admin: 07/20/16 09:11 Dose: 1 applic Nystatin/Triamcinolone Acetonide (Mycolog Ii Cream -) 1 applic TP BID [facility] Last Admin: 07/20/16 09:11 Dose: 1 applic Pantoprazole Sodium (Protonix -) 40 mg PO DAILY [facility] Last Admin: 07/20/16 09:09 Dose: 40 mg Potassium Chloride (K-Dur -) 20 meq PO DAILY [facility] Last Admin: 07/20/16 09:10 Dose: 20 meq Potassium Phos/Sodium Phos (Phos-Nak Packet -) 1 packet PO BID [facility] Last Admin: 07/20/16 09:12 Dose: 1 packet Quetiapine Fumarate (Seroquel -) 12.5 mg PO BID [facility] Last Admin: 07/20/16 09:13 Dose: 12.5 mg Tamsulosin HCl (Flomax -) 0.4 mg PO HS [facility] Last Admin: 07/19/16 21:43 Dose: 0.4 mg Trazodone HCl (Desyrel -) 37.5 mg PO HS [facility] Last Admin: 07/19/16 21:43 Dose: 37.5 mg - Objective Vital Signs: Vital Signs Temperature 98.2 F 07/20/16 09:00 Pulse Rate 63 07/20/16 09:00 Respiratory Rate 18 07/20/16 09:00 Blood Pressure 105/57 07/20/16 09:00 O2 Sat by Pulse Oximetry (%) 97 07/20/16 09:00 Constitutional: Yes: No Distress, Calm Cardiovascular: Yes: S1, S2 Respiratory: Yes: Regular, CTA Bilaterally Gastrointestinal: Yes: Normal Bowel Sounds, Soft Musculoskeletal: Yes: WNL Extremities: Yes: WNL Neurological: Yes: Alert Psychiatric: Yes: Alert Labs: CBC, BMP 07/15/16 07:00 07/15/16 07:00 INR, PTT INR 1.18 (0.82-1.09) H 06/20/16 15:00 Assessment/Plan Problem List - Problems (1) Sepsis Code(s): A41.9 - SEPSIS, UNSPECIFIED ORGANISM Qualifiers: Sepsis type: sepsis due to unspecified organism Qualified Code(s): A41.9 - Sepsis, unspecified organism (2) UTI (urinary tract infection) Code(s): N39.0 - URINARY TRACT INFECTION, SITE NOT SPECIFIED Qualifiers: Urinary tract infection type: acute cystitis Hematuria presence: with hematuria Qualified Code(s): N30.01 - Acute cystitis with hematuria (3) Lactic acid acidosis Code(s): E87.2 - ACIDOSIS (4) Metabolic encephalopathy Code(s): G93.41 - METABOLIC ENCEPHALOPATHY (5) HTN (hypertension) Code(s): I10 - ESSENTIAL (PRIMARY) HYPERTENSION (6) Dementia Code(s): F03.90 - UNSPECIFIED DEMENTIA WITHOUT BEHAVIORAL DISTURBANCE 7 gram positive bacteremia 8 head aches plan continue current mgmt awaiting placement rest as per primary
[2016-07-20] MEDS: TAMSULOSIN HCL 0.4 MG CAP.ER.24H (FP) PO SCH (21:50)
[2016-07-20] MEDS: ATORVASTATIN CA 10 MG TABLET (FP) PO SCH (21:51)
[2016-07-20] MEDS: traZODone HCL 50 MG TABLET (FP) PO SCH (22:49)
[2016-07-21] MEDS: ACETAMINOPHEN 325 MG TABLET (FP) PO PRN (06:53)
[2016-07-21] MEDS: ASCORBIC ACID 500 MG TABLET (FP) PO SCH (09:27)
[2016-07-21] MEDS: PANTOPRAZOLE 40 MG TABLET (FP) PO SCH (09:27)
[2016-07-21] MEDS: FINASTERIDE 5 MG TABLET (FP) PO SCH (09:27)
[2016-07-21] MEDS: POTASSIUM CHLORIDE TABS 20 MEQ TABLET.ER (FP) PO SCH (09:27)
[2016-07-21] MEDS: METOPROLOL SUCCINATE 25 MG TAB.SR.24H (FP) PO SCH (09:27)
[2016-07-21] MEDS: LACTOBACILLUS ACIDOPHILUS 1 EACH TAB (FP) PO SCH (09:27)
[2016-07-21] MEDS: QUEtiapine FUMARATE 25 MG TABLET (FP) PO SCH ×2 (09:27→21:52)
[2016-07-21] MEDS: MAGNESIUM OXIDE 400 MG TABLET (FP) PO SCH ×2 (09:27→21:51)
[2016-07-21] MEDS: NAPH,MB-DB/K PH,MBDB POWDER PACKET PO SCH ×2 (09:28→21:51)
[2016-07-21] MEDS: NYSTATIN/TRIAMCINOLONE TOPICAL CREAM 15 GM TUBE TP SCH ×2 (09:30→21:52)
[2016-07-21] MEDS: NEOMYCIN/POLYMYXIN/BACITRACIN (TRIPLE ANTIBIOTIC) 28 GM OINTMENT TP SCH ×2 (09:31→21:52)
[2016-07-21] MEDS: COLLAGENASE CLOSTRIDIUM HIST. 30 GRAMS TUBE TP SCH (09:32)
--- NOTE | 2016-07-21 10:19 | PN ---
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 (short form) - Note 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: Denies chest pain, shortness of breath, palpitation or dizziness. No change in clinical condition. Afebrile. O/E Vital Signs Period Temp Pulse Resp BP Sys/Kerr Pulse Ox Last 24 Hr 97.9 F-98.6 F 60-65 18-20 96-112/50-58 97 Heart regular Lungs clear Abd soft Ext no edema Current Medications Acetaminophen (Tylenol -) 650 mg PO Q4H PRN PRN Reason: FEVER OR PAIN Last Admin: 07/05/16 11:38 Dose: 650 mg Ascorbic Acid (Vitamin C -) 500 mg PO DAILY [facility] Last Admin: 07/06/16 09:44 Dose: 500 mg Atorvastatin Calcium (Lipitor -) 10 mg PO HS [facility] Last Admin: 07/05/16 21:30 Dose: 10 mg Collagenase (Santyl -) 1 applic TP DAILY [facility] Last Admin: 07/06/16 09:45 Dose: 1 applic Dronabinol (Marinol -) 2.5 mg PO BID [facility] Last Admin: 07/06/16 09:44 Dose: 2.5 mg Finasteride (Proscar -) 5 mg PO DAILY [facility] Last Admin: 07/06/16 09:44 Dose: 5 mg Haloperidol (Haldol Injection (Fast Acting) -) 2 mg IM Q4H PRN PRN Reason: AGITATION Last Admin: 06/22/16 02:19 Dose: 2 mg Lactobacillus Acidophilus (Bacid -) 1 tab PO DAILY [facility] Last Admin: 07/06/16 09:44 Dose: 1 tab Magnesium Oxide (Mag-Ox -) 400 mg PO BID [facility] Last Admin: 07/06/16 09:44 Dose: 400 mg Metoprolol Succinate (Toprol Xl -) 25 mg PO DAILY [facility] Last Admin: 07/06/16 09:44 Dose: 25 mg Neomycin/Polymyxin/Bacitracin (Neosporin Topical Ointment -) 1 applic TP BID [facility] Last Admin: 07/06/16 09:45 Dose: 1 applic Nystatin/Triamcinolone Acetonide (Mycolog Ii Cream -) 1 applic TP BID [facility] Last Admin: 07/06/16 09:45 Dose: 1 applic Pantoprazole Sodium (Protonix -) 40 mg PO DAILY [facility] Last Admin: 07/06/16 09:44 Dose: 40 mg Potassium Chloride (K-Dur -) 20 meq PO DAILY [facility] Last Admin: 07/06/16 09:44 Dose: 20 meq Potassium Phos/Sodium Phos (Phos-Nak Packet -) 1 packet PO BID [facility] Last Admin: 07/06/16 09:45 Dose: 1 packet Tamsulosin HCl (Flomax -) 0.4 mg PO HS [facility] Last Admin: 07/05/16 21:30 Dose: 0.4 mg Trazodone HCl (Desyrel -) 37.5 mg PO HS [facility] Last Admin: 07/05/16 21:30 Dose: 37.5 mg CBC, BMP 07/15/16 07:00 07/15/16 07:00 A&P Assessment/Plan Headache Resolved. CT head: Nil acute. Neurology follow up appreciated. Tylenol prn. (1) Sepsis Code(s): A41.9 - SEPSIS, UNSPECIFIED ORGANISM Resolved Qualifiers: Sepsis type: sepsis due to unspecified organism Qualified Code(s): A41.9 - Sepsis, unspecified organism (2) UTI (urinary tract infection) Code(s): N39.0 - URINARY TRACT INFECTION, SITE NOT SPECIFIED Afebrile Qualifiers: Urinary tract infection type: acute cystitis Hematuria presence: with hematuria Qualified Code(s): N30.01 - Acute cystitis with hematuria Resolved (3) Metabolic encephalopathy Code(s): G93.41 - METABOLIC ENCEPHALOPATHY stable (4) HTN (hypertension) Code(s): I10 - ESSENTIAL (PRIMARY) HYPERTENSION Controlled (5) Dementia Code(s): F03.90 - UNSPECIFIED DEMENTIA WITHOUT BEHAVIORAL DISTURBANCE Awaiting discharge planning and placement
--- NOTE | 2016-07-21 14:07 | PN ---
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, Physician History of Present Illness: stable doing well no events overnight - Current Medication List Current Medications: Active Medications Acetaminophen (Tylenol -) 650 mg PO Q4H PRN PRN Reason: FEVER OR PAIN Last Admin: 07/21/16 06:53 Dose: 650 mg Ascorbic Acid (Vitamin C -) 500 mg PO DAILY [facility] Last Admin: 07/21/16 09:27 Dose: 500 mg Atorvastatin Calcium (Lipitor -) 10 mg PO HS [facility] Last Admin: 07/20/16 21:51 Dose: 10 mg Collagenase (Santyl -) 1 applic TP DAILY [facility] Last Admin: 07/21/16 09:32 Dose: 1 applic Finasteride (Proscar -) 5 mg PO DAILY [facility] Last Admin: 07/21/16 09:27 Dose: 5 mg Lactobacillus Acidophilus (Bacid -) 1 tab PO DAILY [facility] Last Admin: 07/21/16 09:27 Dose: 1 tab Magnesium Oxide (Mag-Ox -) 400 mg PO BID [facility] Last Admin: 07/21/16 09:27 Dose: 400 mg Metoprolol Succinate (Toprol Xl -) 12.5 mg PO DAILY [facility] Last Admin: 07/21/16 09:27 Dose: 12.5 mg Neomycin/Polymyxin/Bacitracin (Neosporin Topical Ointment -) 1 applic TP BID [facility] Last Admin: 07/21/16 09:31 Dose: 1 applic Nystatin/Triamcinolone Acetonide (Mycolog Ii Cream -) 1 applic TP BID [facility] Last Admin: 07/21/16 09:30 Dose: 1 applic Pantoprazole Sodium (Protonix -) 40 mg PO DAILY [facility] Last Admin: 07/21/16 09:27 Dose: 40 mg Potassium Chloride (K-Dur -) 20 meq PO DAILY [facility] Last Admin: 07/21/16 09:27 Dose: 20 meq Potassium Phos/Sodium Phos (Phos-Nak Packet -) 1 packet PO BID [facility] Last Admin: 07/21/16 09:28 Dose: 1 packet Quetiapine Fumarate (Seroquel -) 12.5 mg PO BID [facility] Last Admin: 07/21/16 09:27 Dose: 12.5 mg Tamsulosin HCl (Flomax -) 0.4 mg PO HS [facility] Last Admin: 07/20/16 21:50 Dose: 0.4 mg Trazodone HCl (Desyrel -) 37.5 mg PO HS [facility] Last Admin: 07/19/16 21:43 Dose: 37.5 mg - Objective Vital Signs: Vital Signs Temperature 98.2 F 07/21/16 09:32 Pulse Rate 63 07/21/16 09:32 Respiratory Rate 20 07/21/16 09:32 Blood Pressure 112/52 07/21/16 09:32 O2 Sat by Pulse Oximetry (%) 98 07/21/16 09:00 Constitutional: Yes: No Distress, Calm HENT: Yes: Atraumatic Neck: Yes: Supple, Trachea Midline Cardiovascular: Yes: S1, S2 Respiratory: Yes: Regular, CTA Bilaterally Musculoskeletal: Yes: WNL Extremities: Yes: WNL Neurological: Yes: Alert, Other Labs: CBC, BMP 07/15/16 07:00 07/15/16 07:00 INR, PTT INR 1.18 (0.82-1.09) H 06/20/16 15:00 Assessment/Plan Problem List - Problems (1) Sepsis Code(s): A41.9 - SEPSIS, UNSPECIFIED ORGANISM Qualifiers: Sepsis type: sepsis due to unspecified organism Qualified Code(s): A41.9 - Sepsis, unspecified organism (2) UTI (urinary tract infection) Code(s): N39.0 - URINARY TRACT INFECTION, SITE NOT SPECIFIED Qualifiers: Urinary tract infection type: acute cystitis Hematuria presence: with hematuria Qualified Code(s): N30.01 - Acute cystitis with hematuria (3) Lactic acid acidosis Code(s): E87.2 - ACIDOSIS (4) Metabolic encephalopathy Code(s): G93.41 - METABOLIC ENCEPHALOPATHY (5) HTN (hypertension) Code(s): I10 - ESSENTIAL (PRIMARY) HYPERTENSION (6) Dementia Code(s): F03.90 - UNSPECIFIED DEMENTIA WITHOUT BEHAVIORAL DISTURBANCE 7 gram positive bacteremia 8 head aches plan continue current mgmt awaiting placement rest as per primary
--- NOTE | 2016-07-21 14:49 | PN ---
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 (short form) - Note 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: The patient was admitted with baseline dementia, treated for enterococcus sepsis associated with urinary tract infection, and we were consulted for headache and agitation. He is now calm and the nurse now tells me that he does complain to them about headache. He is apparently at his impaired baseline and awaiting placement. Will continue to monitor agitation and sundowning. I'll add gabapentin to see if it helps the headache. Thanks.
[2016-07-21] MEDS: TAMSULOSIN HCL 0.4 MG CAP.ER.24H (FP) PO SCH (21:50)
[2016-07-21] MEDS: ATORVASTATIN CA 10 MG TABLET (FP) PO SCH (21:51)
[2016-07-21] MEDS: GABAPENTIN 100 MG CAPSULE (FP) PO SCH (21:51)
[2016-07-21] MEDS: traZODone HCL 50 MG TABLET (FP) PO SCH (21:58)
[2016-07-22] MEDS: GABAPENTIN 100 MG CAPSULE (FP) PO SCH ×3 (06:19→22:31)
--- NOTE | 2016-07-22 08:49 | PN ---
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 (short form) - Note 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: No complaints. Denies chest pain, shortness of breath, palpitation or dizziness. No change in clinical condition. O/E Vital Signs Period Temp Pulse Resp BP Sys/Kerr Pulse Ox Last 24 Hr 97.2 F-98.5 F 57-89 18-20 106-141/52-71 98-98 Heart regular Lungs clear Abd soft Ext no edema Current Medications Acetaminophen (Tylenol -) 650 mg PO Q4H PRN PRN Reason: FEVER OR PAIN Last Admin: 07/05/16 11:38 Dose: 650 mg Ascorbic Acid (Vitamin C -) 500 mg PO DAILY [facility] Last Admin: 07/06/16 09:44 Dose: 500 mg Atorvastatin Calcium (Lipitor -) 10 mg PO HS [facility] Last Admin: 07/05/16 21:30 Dose: 10 mg Collagenase (Santyl -) 1 applic TP DAILY [facility] Last Admin: 07/06/16 09:45 Dose: 1 applic Dronabinol (Marinol -) 2.5 mg PO BID [facility] Last Admin: 07/06/16 09:44 Dose: 2.5 mg Finasteride (Proscar -) 5 mg PO DAILY [facility] Last Admin: 07/06/16 09:44 Dose: 5 mg Haloperidol (Haldol Injection (Fast Acting) -) 2 mg IM Q4H PRN PRN Reason: AGITATION Last Admin: 06/22/16 02:19 Dose: 2 mg Lactobacillus Acidophilus (Bacid -) 1 tab PO DAILY [facility] Last Admin: 07/06/16 09:44 Dose: 1 tab Magnesium Oxide (Mag-Ox -) 400 mg PO BID [facility] Last Admin: 07/06/16 09:44 Dose: 400 mg Metoprolol Succinate (Toprol Xl -) 25 mg PO DAILY [facility] Last Admin: 07/06/16 09:44 Dose: 25 mg Neomycin/Polymyxin/Bacitracin (Neosporin Topical Ointment -) 1 applic TP BID [facility] Last Admin: 07/06/16 09:45 Dose: 1 applic Nystatin/Triamcinolone Acetonide (Mycolog Ii Cream -) 1 applic TP BID [facility] Last Admin: 07/06/16 09:45 Dose: 1 applic Pantoprazole Sodium (Protonix -) 40 mg PO DAILY [facility] Last Admin: 07/06/16 09:44 Dose: 40 mg Potassium Chloride (K-Dur -) 20 meq PO DAILY [facility] Last Admin: 07/06/16 09:44 Dose: 20 meq Potassium Phos/Sodium Phos (Phos-Nak Packet -) 1 packet PO BID [facility] Last Admin: 07/06/16 09:45 Dose: 1 packet Tamsulosin HCl (Flomax -) 0.4 mg PO HS [facility] Last Admin: 07/05/16 21:30 Dose: 0.4 mg Trazodone HCl (Desyrel -) 37.5 mg PO HS [facility] Last Admin: 07/05/16 21:30 Dose: 37.5 mg CBC, BMP 07/15/16 07:00 07/15/16 07:00 A&P Assessment/Plan Headache Resolved. CT head: Nil acute. Neurology follow up appreciated. Tylenol prn. (1) Sepsis Code(s): A41.9 - SEPSIS, UNSPECIFIED ORGANISM Resolved Qualifiers: Sepsis type: sepsis due to unspecified organism Qualified Code(s): A41.9 - Sepsis, unspecified organism (2) UTI (urinary tract infection) Code(s): N39.0 - URINARY TRACT INFECTION, SITE NOT SPECIFIED Afebrile Qualifiers: Urinary tract infection type: acute cystitis Hematuria presence: with hematuria Qualified Code(s): N30.01 - Acute cystitis with hematuria Resolved (3) Metabolic encephalopathy Code(s): G93.41 - METABOLIC ENCEPHALOPATHY stable (4) HTN (hypertension) Code(s): I10 - ESSENTIAL (PRIMARY) HYPERTENSION Controlled (5) Dementia Code(s): F03.90 - UNSPECIFIED DEMENTIA WITHOUT BEHAVIORAL DISTURBANCE Awaiting discharge planning and placement
[2016-07-22] MEDS: MAGNESIUM OXIDE 400 MG TABLET (FP) PO SCH ×2 (10:43→22:30)
[2016-07-22] MEDS: ASCORBIC ACID 500 MG TABLET (FP) PO SCH (10:43)
[2016-07-22] MEDS: POTASSIUM CHLORIDE TABS 20 MEQ TABLET.ER (FP) PO SCH (10:44)
[2016-07-22] MEDS: LACTOBACILLUS ACIDOPHILUS 1 EACH TAB (FP) PO SCH (10:44)
[2016-07-22] MEDS: FINASTERIDE 5 MG TABLET (FP) PO SCH (10:44)
[2016-07-22] MEDS: PANTOPRAZOLE 40 MG TABLET (FP) PO SCH (10:44)
[2016-07-22] MEDS: NAPH,MB-DB/K PH,MBDB POWDER PACKET PO SCH ×2 (10:44→22:31)
[2016-07-22] MEDS: QUEtiapine FUMARATE 25 MG TABLET (FP) PO SCH ×2 (10:45→22:31)
[2016-07-22] MEDS: METOPROLOL SUCCINATE 25 MG TAB.SR.24H (FP) PO SCH (10:47)
--- NOTE | 2016-07-22 11:56 | PN ---
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 (short form) - Note 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: s: denies any cp pain, sob dizzy, abd pain, HERNÁNDEZ o: Vital Signs Period Temp Pulse Resp BP Sys/Kerr Pulse Ox Last 24 Hr 97.2 F-98.5 F 57-89 18-20 106-141/53-71 98 awake, nad jvd flat, neck supple ctabl, poor effort rrr, nl s1, s2 no mrg ext without e/c/c alert no jaundice, diaphoresis Current Medications Generic Name Dose Route Start Last Admin Trade Name Freq PRN Reason Stop Dose Admin Acetaminophen 650 mg 06/12/16 10:27 07/21/16 06:53 Tylenol - PO 650 mg Q4H PRN Administration FEVER OR PAIN Ascorbic Acid 500 mg 06/11/16 10:00 07/22/16 10:43 Vitamin C - PO 500 mg DAILY [facility] Administration Atorvastatin Calcium 10 mg 06/10/16 22:00 07/21/16 21:51 Lipitor - PO 10 mg HS [facility] Administration Collagenase 1 applic 06/11/16 10:00 07/21/16 09:32 Santyl - TP 1 applic DAILY [facility] Administration Finasteride 5 mg 06/11/16 10:00 07/22/16 10:44 Proscar - PO 5 mg DAILY [facility] Administration Gabapentin 100 mg 07/21/16 22:00 07/22/16 06:19 Neurontin - PO 100 mg TID [facility] Administration Lactobacillus Acidophilus 1 tab 06/11/16 10:00 07/22/16 10:44 Bacid - PO 1 tab DAILY [facility] Administration Magnesium Oxide 400 mg 06/16/16 12:30 07/22/16 10:43 Mag-Ox - PO 400 mg BID [facility] Administration Metoprolol Succinate 12.5 mg 07/18/16 10:00 07/22/16 10:47 Toprol Xl - PO 12.5 mg DAILY [facility] Administration Neomycin/Polymyxin/Bacitracin 1 applic 06/27/16 22:00 07/21/16 21:52 Neosporin Topical Ointment - TP 1 applic BID [facility] Administration Nystatin/Triamcinolone Acetonide 1 applic 06/19/16 22:00 07/21/16 21:52 Mycolog Ii Cream - TP 1 applic BID [facility] Administration Pantoprazole Sodium 40 mg 06/11/16 10:00 07/22/16 10:44 Protonix - PO 40 mg DAILY [facility] Administration Potassium Chloride 20 meq 06/27/16 10:00 07/22/16 10:44 K-Dur - PO 20 meq DAILY [facility] Administration Potassium Phos/Sodium Phos 1 packet 06/16/16 12:30 07/22/16 10:44 Phos-Nak Packet - PO 1 packet BID [facility] Administration Quetiapine Fumarate 12.5 mg 07/14/16 11:00 07/22/16 10:45 Seroquel - PO 12.5 mg BID [facility] Administration Tamsulosin HCl 0.4 mg 06/10/16 22:00 07/21/16 21:50 Flomax - PO 0.4 mg HS [facility] Administration Trazodone HCl 37.5 mg 06/10/16 22:00 07/21/16 21:58 Desyrel - PO 37.5 mg HS [facility] Administration CBC, BMP 07/15/16 07:00 07/15/16 07:00 EKG 06/10 12:21: uninterpretable due to baseline artifact EKG 06/10 14:46 Poor quality/baseline. Sinus tach with diffuse ST abnormalities. anterior ST sagging. possible inferior q waves. low limb voltages. a/p: 80 yo with h/o htn, bph, advanced dementia who sent to ER for hematuria and noted to have UTI with sepsis complicated by elevated cardiac enzymes. positive trops: - borderline trop elevation with flat trend and low ck index, not consistent with acs, likely related to likely demand in setting of infection and tachycardia. - started low dose atorvastatin while here - cont metoprolol - not on asa due to hematuria - echo done here this admit was non-diagnostic due to pt agitation/lack of cooperation - no chest pain symptoms, no further cardiac testing for now htn - controlled adequately on low dose bb sepsis/uti/hematuria - resolved, awaiting placement now, mgm't per pmd/urology/ID
--- NOTE | 2016-07-22 13:46 | PN ---
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, Physician History of Present Illness: stable doing well no events overnight patient doing well - Current Medication List Current Medications: Active Medications Acetaminophen (Tylenol -) 650 mg PO Q4H PRN PRN Reason: FEVER OR PAIN Last Admin: 07/21/16 06:53 Dose: 650 mg Ascorbic Acid (Vitamin C -) 500 mg PO DAILY [facility] Last Admin: 07/22/16 10:43 Dose: 500 mg Atorvastatin Calcium (Lipitor -) 10 mg PO HS [facility] Last Admin: 07/21/16 21:51 Dose: 10 mg Collagenase (Santyl -) 1 applic TP DAILY [facility] Last Admin: 07/21/16 09:32 Dose: 1 applic Finasteride (Proscar -) 5 mg PO DAILY [facility] Last Admin: 07/22/16 10:44 Dose: 5 mg Gabapentin (Neurontin -) 100 mg PO TID [facility] Last Admin: 07/22/16 06:19 Dose: 100 mg Lactobacillus Acidophilus (Bacid -) 1 tab PO DAILY [facility] Last Admin: 07/22/16 10:44 Dose: 1 tab Magnesium Oxide (Mag-Ox -) 400 mg PO BID [facility] Last Admin: 07/22/16 10:43 Dose: 400 mg Metoprolol Succinate (Toprol Xl -) 12.5 mg PO DAILY [facility] Last Admin: 07/22/16 10:47 Dose: 12.5 mg Neomycin/Polymyxin/Bacitracin (Neosporin Topical Ointment -) 1 applic TP BID [facility] Last Admin: 07/21/16 21:52 Dose: 1 applic Nystatin/Triamcinolone Acetonide (Mycolog Ii Cream -) 1 applic TP BID [facility] Last Admin: 07/21/16 21:52 Dose: 1 applic Pantoprazole Sodium (Protonix -) 40 mg PO DAILY [facility] Last Admin: 07/22/16 10:44 Dose: 40 mg Potassium Chloride (K-Dur -) 20 meq PO DAILY [facility] Last Admin: 07/22/16 10:44 Dose: 20 meq Potassium Phos/Sodium Phos (Phos-Nak Packet -) 1 packet PO BID [facility] Last Admin: 07/22/16 10:44 Dose: 1 packet Quetiapine Fumarate (Seroquel -) 12.5 mg PO BID [facility] Last Admin: 07/22/16 10:45 Dose: 12.5 mg Tamsulosin HCl (Flomax -) 0.4 mg PO HS [facility] Last Admin: 07/21/16 21:50 Dose: 0.4 mg Trazodone HCl (Desyrel -) 37.5 mg PO HS [facility] Last Admin: 07/21/16 21:58 Dose: 37.5 mg - Objective Vital Signs: Vital Signs Temperature 97.2 F L 07/22/16 08:00 Pulse Rate 58 L 07/22/16 08:00 Respiratory Rate 18 07/22/16 08:00 Blood Pressure 141/71 07/22/16 08:00 O2 Sat by Pulse Oximetry (%) 98 07/21/16 21:00 Constitutional: Yes: No Distress, Calm Cardiovascular: Yes: Regular Rate and Rhythm Respiratory: Yes: Regular, CTA Bilaterally Gastrointestinal: Yes: Normal Bowel Sounds, Soft Musculoskeletal: Yes: WNL Extremities: Yes: WNL Neurological: Yes: Alert, Other Psychiatric: Yes: Alert Labs: CBC, BMP 07/15/16 07:00 07/15/16 07:00 INR, PTT INR 1.18 (0.82-1.09) H 06/20/16 15:00 Assessment/Plan Problem List - Problems (1) Sepsis Code(s): A41.9 - SEPSIS, UNSPECIFIED ORGANISM Qualifiers: Sepsis type: sepsis due to unspecified organism Qualified Code(s): A41.9 - Sepsis, unspecified organism (2) UTI (urinary tract infection) Code(s): N39.0 - URINARY TRACT INFECTION, SITE NOT SPECIFIED Qualifiers: Urinary tract infection type: acute cystitis Hematuria presence: with hematuria Qualified Code(s): N30.01 - Acute cystitis with hematuria (3) Lactic acid acidosis Code(s): E87.2 - ACIDOSIS (4) Metabolic encephalopathy Code(s): G93.41 - METABOLIC ENCEPHALOPATHY (5) HTN (hypertension) Code(s): I10 - ESSENTIAL (PRIMARY) HYPERTENSION (6) Dementia Code(s): F03.90 - UNSPECIFIED DEMENTIA WITHOUT BEHAVIORAL DISTURBANCE 7 gram positive bacteremia 8 head aches plan continue current mgmt awaiting placement rest as per primary patient at baseline
[2016-07-22] MEDS: NYSTATIN/TRIAMCINOLONE TOPICAL CREAM 15 GM TUBE TP SCH ×2 (15:00→22:31)
[2016-07-22] MEDS: COLLAGENASE CLOSTRIDIUM HIST. 30 GRAMS TUBE TP SCH (15:00)
[2016-07-22] MEDS: NEOMYCIN/POLYMYXIN/BACITRACIN (TRIPLE ANTIBIOTIC) 28 GM OINTMENT TP SCH ×2 (15:00→22:32)
[2016-07-22] MEDS: traZODone HCL 50 MG TABLET (FP) PO SCH (22:30)
[2016-07-22] MEDS: TAMSULOSIN HCL 0.4 MG CAP.ER.24H (FP) PO SCH (22:30)
[2016-07-22] MEDS: ATORVASTATIN CA 10 MG TABLET (FP) PO SCH (22:30)
[2016-07-23] MEDS: GABAPENTIN 100 MG CAPSULE (FP) PO SCH ×2 (06:12→21:07)
--- NOTE | 2016-07-23 09:09 | PN ---
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 (short form) - Note 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: Denies chest pain, shortness of breath, palpitation or dizziness. No change in clinical condition. O/E Vital Signs Period Temp Pulse Resp BP Sys/Kerr Pulse Ox Last 24 Hr 98.2 F-98.8 F 58-84 16-20 92-120/54-78 98 Heart regular Lungs clear Abd soft Ext no edema Current Medications Acetaminophen (Tylenol -) 650 mg PO Q4H PRN PRN Reason: FEVER OR PAIN Last Admin: 07/05/16 11:38 Dose: 650 mg Ascorbic Acid (Vitamin C -) 500 mg PO DAILY [facility] Last Admin: 07/06/16 09:44 Dose: 500 mg Atorvastatin Calcium (Lipitor -) 10 mg PO HS [facility] Last Admin: 07/05/16 21:30 Dose: 10 mg Collagenase (Santyl -) 1 applic TP DAILY [facility] Last Admin: 07/06/16 09:45 Dose: 1 applic Dronabinol (Marinol -) 2.5 mg PO BID [facility] Last Admin: 07/06/16 09:44 Dose: 2.5 mg Finasteride (Proscar -) 5 mg PO DAILY [facility] Last Admin: 07/06/16 09:44 Dose: 5 mg Haloperidol (Haldol Injection (Fast Acting) -) 2 mg IM Q4H PRN PRN Reason: AGITATION Last Admin: 06/22/16 02:19 Dose: 2 mg Lactobacillus Acidophilus (Bacid -) 1 tab PO DAILY [facility] Last Admin: 07/06/16 09:44 Dose: 1 tab Magnesium Oxide (Mag-Ox -) 400 mg PO BID [facility] Last Admin: 07/06/16 09:44 Dose: 400 mg Metoprolol Succinate (Toprol Xl -) 25 mg PO DAILY [facility] Last Admin: 07/06/16 09:44 Dose: 25 mg Neomycin/Polymyxin/Bacitracin (Neosporin Topical Ointment -) 1 applic TP BID [facility] Last Admin: 07/06/16 09:45 Dose: 1 applic Nystatin/Triamcinolone Acetonide (Mycolog Ii Cream -) 1 applic TP BID [facility] Last Admin: 07/06/16 09:45 Dose: 1 applic Pantoprazole Sodium (Protonix -) 40 mg PO DAILY [facility] Last Admin: 07/06/16 09:44 Dose: 40 mg Potassium Chloride (K-Dur -) 20 meq PO DAILY [facility] Last Admin: 07/06/16 09:44 Dose: 20 meq Potassium Phos/Sodium Phos (Phos-Nak Packet -) 1 packet PO BID [facility] Last Admin: 07/06/16 09:45 Dose: 1 packet Tamsulosin HCl (Flomax -) 0.4 mg PO HS [facility] Last Admin: 07/05/16 21:30 Dose: 0.4 mg Trazodone HCl (Desyrel -) 37.5 mg PO HS [facility] Last Admin: 07/05/16 21:30 Dose: 37.5 mg CBC, BMP 07/15/16 07:00 07/15/16 07:00 A&P Assessment/Plan Headache Resolved. CT head: Nil acute. Neurology follow up appreciated. Tylenol prn. (1) Sepsis Code(s): A41.9 - SEPSIS, UNSPECIFIED ORGANISM Resolved Qualifiers: Sepsis type: sepsis due to unspecified organism Qualified Code(s): A41.9 - Sepsis, unspecified organism (2) UTI (urinary tract infection) Code(s): N39.0 - URINARY TRACT INFECTION, SITE NOT SPECIFIED Afebrile Qualifiers: Urinary tract infection type: acute cystitis Hematuria presence: with hematuria Qualified Code(s): N30.01 - Acute cystitis with hematuria Resolved (3) Metabolic encephalopathy Code(s): G93.41 - METABOLIC ENCEPHALOPATHY stable (4) HTN (hypertension) Code(s): I10 - ESSENTIAL (PRIMARY) HYPERTENSION Controlled (5) Dementia Code(s): F03.90 - UNSPECIFIED DEMENTIA WITHOUT BEHAVIORAL DISTURBANCE Awaiting discharge planning and placement
--- NOTE | 2016-07-23 12:09 | PN ---
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 (short form) - Note 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: s: denies any cp pain, sob dizzy, abd pain, HERNÁNDEZ o: Vital Signs Period Temp Pulse Resp BP Sys/Kerr Pulse Ox Last 24 Hr 98.2 F-98.8 F 58-84 16-20 92-120/54-78 98 awake, nad jvd flat, neck supple ctabl, poor effort rrr, nl s1, s2 no mrg ext without e/c/c alert, appropriate no jaundice, diaphoresis Current Medications Generic Name Dose Route Start Last Admin Trade Name Freq PRN Reason Stop Dose Admin Acetaminophen 650 mg 06/12/16 10:27 07/21/16 06:53 Tylenol - PO 650 mg Q4H PRN Administration FEVER OR PAIN Ascorbic Acid 500 mg 06/11/16 10:00 07/22/16 10:43 Vitamin C - PO 500 mg DAILY [facility] Administration Atorvastatin Calcium 10 mg 06/10/16 22:00 07/22/16 22:30 Lipitor - PO 10 mg HS [facility] Administration Collagenase 1 applic 06/11/16 10:00 07/22/16 15:00 Santyl - TP 1 applic DAILY [facility] Administration Finasteride 5 mg 06/11/16 10:00 07/22/16 10:44 Proscar - PO 5 mg DAILY [facility] Administration Gabapentin 100 mg 07/21/16 22:00 07/23/16 06:12 Neurontin - PO 100 mg TID [facility] Administration Lactobacillus Acidophilus 1 tab 06/11/16 10:00 07/22/16 10:44 Bacid - PO 1 tab DAILY [facility] Administration Magnesium Oxide 400 mg 06/16/16 12:30 07/22/16 22:30 Mag-Ox - PO 400 mg BID [facility] Administration Neomycin/Polymyxin/Bacitracin 1 applic 06/27/16 22:00 07/22/16 22:32 Neosporin Topical Ointment - TP 1 applic BID [facility] Administration Nystatin/Triamcinolone Acetonide 1 applic 06/19/16 22:00 07/22/16 22:31 Mycolog Ii Cream - TP 1 applic BID [facility] Administration Pantoprazole Sodium 40 mg 06/11/16 10:00 07/22/16 10:44 Protonix - PO 40 mg DAILY [facility] Administration Potassium Chloride 20 meq 06/27/16 10:00 07/22/16 10:44 K-Dur - PO 20 meq DAILY [facility] Administration Potassium Phos/Sodium Phos 1 packet 06/16/16 12:30 07/22/16 22:31 Phos-Nak Packet - PO 1 packet BID [facility] Administration Quetiapine Fumarate 12.5 mg 07/14/16 11:00 07/22/16 22:31 Seroquel - PO 12.5 mg BID [facility] Administration Tamsulosin HCl 0.4 mg 06/10/16 22:00 07/22/16 22:30 Flomax - PO 0.4 mg HS [facility] Administration Trazodone HCl 37.5 mg 06/10/16 22:00 07/22/16 22:30 Desyrel - PO 37.5 mg HS [facility] Administration CBC, BMP 07/15/16 07:00 07/15/16 07:00 EKG 06/10 12:21: uninterpretable due to baseline artifact EKG 06/10 14:46 Poor quality/baseline. Sinus tach with diffuse ST abnormalities. anterior ST sagging. possible inferior q waves. low limb voltages. a/p: 80 yo with h/o htn, bph, advanced dementia who sent to ER for hematuria and noted to have UTI with sepsis complicated by elevated cardiac enzymes. positive trops: - borderline trop elevation with flat trend and low ck index, not consistent with acs, likely related to likely demand in setting of infection and tachycardia. - started low dose atorvastatin while here - not on asa due to hematuria - echo done here this admit was non-diagnostic due to pt agitation/lack of cooperation - no chest pain symptoms, no further cardiac testing for now htn - has been getting bb but even on low dose his bp has been on low side and occasional HR in 50s, so will dc bb and monitor bp off meds for now sepsis/uti/hematuria - resolved, awaiting placement now, mgm't per pmd/urology/ID
--- NOTE | 2016-07-23 12:54 | PN ---
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, Physician History of Present Illness: patient status quo no new issues - Current Medication List Current Medications: Active Medications Acetaminophen (Tylenol -) 650 mg PO Q4H PRN PRN Reason: FEVER OR PAIN Last Admin: 07/21/16 06:53 Dose: 650 mg Ascorbic Acid (Vitamin C -) 500 mg PO DAILY [facility] Last Admin: 07/22/16 10:43 Dose: 500 mg Atorvastatin Calcium (Lipitor -) 10 mg PO HS [facility] Last Admin: 07/22/16 22:30 Dose: 10 mg Collagenase (Santyl -) 1 applic TP DAILY [facility] Last Admin: 07/22/16 15:00 Dose: 1 applic Finasteride (Proscar -) 5 mg PO DAILY [facility] Last Admin: 07/22/16 10:44 Dose: 5 mg Gabapentin (Neurontin -) 100 mg PO [facility] Lactobacillus Acidophilus (Bacid -) 1 tab PO DAILY [facility] Last Admin: 07/22/16 10:44 Dose: 1 tab Magnesium Oxide (Mag-Ox -) 400 mg PO BID [facility] Last Admin: 07/22/16 22:30 Dose: 400 mg Neomycin/Polymyxin/Bacitracin (Neosporin Topical Ointment -) 1 applic TP BID [facility] Last Admin: 07/22/16 22:32 Dose: 1 applic Nystatin/Triamcinolone Acetonide (Mycolog Ii Cream -) 1 applic TP BID [facility] Last Admin: 07/22/16 22:31 Dose: 1 applic Pantoprazole Sodium (Protonix -) 40 mg PO DAILY [facility] Last Admin: 07/22/16 10:44 Dose: 40 mg Potassium Chloride (K-Dur -) 20 meq PO DAILY [facility] Last Admin: 07/22/16 10:44 Dose: 20 meq Potassium Phos/Sodium Phos (Phos-Nak Packet -) 1 packet PO BID [facility] Last Admin: 07/22/16 22:31 Dose: 1 packet Quetiapine Fumarate (Seroquel -) 12.5 mg PO BID [facility] Last Admin: 07/22/16 22:31 Dose: 12.5 mg Tamsulosin HCl (Flomax -) 0.4 mg PO [facility] Last Admin: 07/22/16 22:30 Dose: 0.4 mg Trazodone HCl (Desyrel -) 37.5 mg PO HS [facility] Last Admin: 07/22/16 22:30 Dose: 37.5 mg - Objective Vital Signs: Vital Signs Temperature 98.8 F 07/23/16 06:00 Pulse Rate 60 07/23/16 06:00 Respiratory Rate 20 07/23/16 06:00 Blood Pressure 92/54 07/23/16 06:00 O2 Sat by Pulse Oximetry (%) 98 07/22/16 21:00 Constitutional: Yes: No Distress, Calm Cardiovascular: Yes: S1, S2 Respiratory: Yes: Regular, CTA Bilaterally Gastrointestinal: Yes: Normal Bowel Sounds, Soft Musculoskeletal: Yes: WNL Extremities: Yes: WNL Neurological: Yes: Alert, Other Labs: CBC, BMP 07/15/16 07:00 07/15/16 07:00 INR, PTT INR 1.18 (0.82-1.09) H 06/20/16 15:00 Assessment/Plan Problem List - Problems (1) Sepsis Code(s): A41.9 - SEPSIS, UNSPECIFIED ORGANISM Qualifiers: Sepsis type: sepsis due to unspecified organism Qualified Code(s): A41.9 - Sepsis, unspecified organism (2) UTI (urinary tract infection) Code(s): N39.0 - URINARY TRACT INFECTION, SITE NOT SPECIFIED Qualifiers: Urinary tract infection type: acute cystitis Hematuria presence: with hematuria Qualified Code(s): N30.01 - Acute cystitis with hematuria (3) Lactic acid acidosis Code(s): E87.2 - ACIDOSIS (4) Metabolic encephalopathy Code(s): G93.41 - METABOLIC ENCEPHALOPATHY (5) HTN (hypertension) Code(s): I10 - ESSENTIAL (PRIMARY) HYPERTENSION (6) Dementia Code(s): F03.90 - UNSPECIFIED DEMENTIA WITHOUT BEHAVIORAL DISTURBANCE 7 gram positive bacteremia 8 head aches plan continue current mgmt stable
[2016-07-23] MEDS: NEOMYCIN/POLYMYXIN/BACITRACIN (TRIPLE ANTIBIOTIC) 28 GM OINTMENT TP SCH ×2 (13:47→21:08)
[2016-07-23] MEDS: NYSTATIN/TRIAMCINOLONE TOPICAL CREAM 15 GM TUBE TP SCH ×2 (13:47→21:08)
[2016-07-23] MEDS: POTASSIUM CHLORIDE TABS 20 MEQ TABLET.ER (FP) PO SCH (13:54)
[2016-07-23] MEDS: QUEtiapine FUMARATE 25 MG TABLET (FP) PO SCH ×2 (13:55→21:08)
[2016-07-23] MEDS: ASCORBIC ACID 500 MG TABLET (FP) PO SCH (13:55)
[2016-07-23] MEDS: NAPH,MB-DB/K PH,MBDB POWDER PACKET PO SCH ×2 (13:55→21:07)
[2016-07-23] MEDS: PANTOPRAZOLE 40 MG TABLET (FP) PO SCH (13:55)
[2016-07-23] MEDS: FINASTERIDE 5 MG TABLET (FP) PO SCH (13:55)
[2016-07-23] MEDS: LACTOBACILLUS ACIDOPHILUS 1 EACH TAB (FP) PO SCH (13:55)
[2016-07-23] MEDS: MAGNESIUM OXIDE 400 MG TABLET (FP) PO SCH ×2 (13:55→21:07)
--- NOTE | 2016-07-23 16:30 | FALL ---
Fall Exam - Event Witnessed fall: No Location of Fall: Patient Room Fall from: Bed - Pre-Fall Fall Risk: High Risk Mental Status: Alert, Disoriented, Cooperative Current Medications: Current Medications Generic Name Dose Route Start Last Admin Trade Name Freq PRN Reason Stop Dose Admin Acetaminophen 650 mg 06/12/16 10:27 07/21/16 06:53 Tylenol - PO 650 mg Q4H PRN Administration FEVER OR PAIN Ascorbic Acid 500 mg 06/11/16 10:00 07/23/16 13:55 Vitamin C - PO 500 mg DAILY [facility]IO Administration Atorvastatin Calcium 10 mg 06/10/16 22:00 07/22/16 22:30 Lipitor - PO 10 mg HS [facility]IO Administration Collagenase 1 applic 06/11/16 10:00 07/22/16 15:00 Santyl - TP 1 applic DAILY [facility] Administration Finasteride 5 mg 06/11/16 10:00 07/23/16 13:55 Proscar - PO 5 mg DAILY [facility] Administration Gabapentin 100 mg 07/23/16 22:00 Neurontin - PO HS [facility] Lactobacillus Acidophilus 1 tab 06/11/16 10:00 07/23/16 13:55 Bacid - PO 1 tab DAILY [facility] Administration Magnesium Oxide 400 mg 06/16/16 12:30 07/23/16 13:55 Mag-Ox - PO 400 mg BID [facility]IO Administration Neomycin/Polymyxin/Bacitracin 1 applic 06/27/16 22:00 07/23/16 13:47 Neosporin Topical Ointment - TP 1 applic BID [facility]IO Administration Nystatin/Triamcinolone Acetonide 1 applic 06/19/16 22:00 07/23/16 13:47 Mycolog Ii Cream - TP 1 applic BID CORNELIO Administration Pantoprazole Sodium 40 mg 06/11/16 10:00 07/23/16 13:55 Protonix - PO 40 mg DAILY [facility]IO Administration Potassium Chloride 20 meq 06/27/16 10:00 07/23/16 13:54 K-Dur - PO 20 meq DAILY [facility] Administration Potassium Phos/Sodium Phos 1 packet 06/16/16 12:30 07/23/16 13:55 Phos-Nak Packet - PO 1 packet BID [facility]IO Administration Quetiapine Fumarate 12.5 mg 07/14/16 11:00 07/23/16 13:55 Seroquel - PO 12.5 mg BID COR[facility]IO Administration Tamsulosin HCl 0.4 mg 06/10/16 22:00 07/22/16 22:30 Flomax - PO 0.4 mg HS [facility]IO Administration Trazodone HCl 37.5 mg 06/10/16 22:00 07/22/16 22:30 Desyrel - PO 37.5 mg HS [facility]IO Administration 07/23/16 16:29 - Post-Fall Patient Outcome: No Injury Treatment: None Vital Signs: Vital Signs Temperature 97.8 F 07/23/16 14:00 Pulse Rate 62 07/23/16 14:00 Respiratory Rate 18 07/23/16 14:00 Blood Pressure 116/59 07/23/16 14:00 O2 Sat by Pulse Oximetry (%) 98 07/23/16 09:00 LOC Post-Fall: Awake, Alert, Confused (baseline dementia) Identify factors for HIGH RISK for Head Injury: None of the above (Patient rolled out of bed and fell on buttocks. Denies head tauma or LOC.)
[2016-07-23] MEDS: COLLAGENASE CLOSTRIDIUM HIST. 30 GRAMS TUBE TP SCH (18:00)
[2016-07-23] MEDS: ATORVASTATIN CA 10 MG TABLET (FP) PO SCH (21:06)
[2016-07-23] MEDS: traZODone HCL 50 MG TABLET (FP) PO SCH (21:06)
[2016-07-23] MEDS: TAMSULOSIN HCL 0.4 MG CAP.ER.24H (FP) PO SCH (21:07)
[2016-07-24] MEDS: POTASSIUM CHLORIDE TABS 20 MEQ TABLET.ER (FP) PO SCH (09:59)
[2016-07-24] MEDS: LACTOBACILLUS ACIDOPHILUS 1 EACH TAB (FP) PO SCH (09:59)
[2016-07-24] MEDS: MAGNESIUM OXIDE 400 MG TABLET (FP) PO SCH ×2 (10:00→21:06)
[2016-07-24] MEDS: NAPH,MB-DB/K PH,MBDB POWDER PACKET PO SCH ×2 (10:00→21:06)
[2016-07-24] MEDS: FINASTERIDE 5 MG TABLET (FP) PO SCH (10:00)
[2016-07-24] MEDS: PANTOPRAZOLE 40 MG TABLET (FP) PO SCH (10:01)
[2016-07-24] MEDS: QUEtiapine FUMARATE 25 MG TABLET (FP) PO SCH ×2 (10:01→21:06)
[2016-07-24] MEDS: ASCORBIC ACID 500 MG TABLET (FP) PO SCH (10:01)
[2016-07-24] MEDS: NYSTATIN/TRIAMCINOLONE TOPICAL CREAM 15 GM TUBE TP SCH ×2 (10:09→21:07)
[2016-07-24] MEDS: NEOMYCIN/POLYMYXIN/BACITRACIN (TRIPLE ANTIBIOTIC) 28 GM OINTMENT TP SCH ×2 (10:09→21:07)
[2016-07-24] MEDS: COLLAGENASE CLOSTRIDIUM HIST. 30 GRAMS TUBE TP SCH (10:10)
--- NOTE | 2016-07-24 12:49 | PN ---
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, Physician History of Present Illness: events noted patient currently sitting in the chair comfortable - Current Medication List Current Medications: Active Medications Acetaminophen (Tylenol -) 650 mg PO Q4H PRN PRN Reason: FEVER OR PAIN Last Admin: 07/21/16 06:53 Dose: 650 mg Ascorbic Acid (Vitamin C -) 500 mg PO DAILY [facility] Last Admin: 07/24/16 10:01 Dose: 500 mg Atorvastatin Calcium (Lipitor -) 10 mg PO HS [facility] Last Admin: 07/23/16 21:06 Dose: 10 mg Collagenase (Santyl -) 1 applic TP DAILY [facility] Last Admin: 07/24/16 10:10 Dose: 1 applic Finasteride (Proscar -) 5 mg PO DAILY [facility] Last Admin: 07/24/16 10:00 Dose: 5 mg Gabapentin (Neurontin -) 100 mg PO HS [facility] Last Admin: 07/23/16 21:07 Dose: 100 mg Lactobacillus Acidophilus (Bacid -) 1 tab PO DAILY [facility] Last Admin: 07/24/16 09:59 Dose: 1 tab Magnesium Oxide (Mag-Ox -) 400 mg PO BID [facility] Last Admin: 07/24/16 10:00 Dose: 400 mg Neomycin/Polymyxin/Bacitracin (Neosporin Topical Ointment -) 1 applic TP BID [facility] Last Admin: 07/24/16 10:09 Dose: 1 applic Nystatin/Triamcinolone Acetonide (Mycolog Ii Cream -) 1 applic TP BID [facility] Last Admin: 07/24/16 10:09 Dose: 1 applic Pantoprazole Sodium (Protonix -) 40 mg PO DAILY [facility] Last Admin: 07/24/16 10:01 Dose: 40 mg Potassium Chloride (K-Dur -) 20 meq PO DAILY [facility] Last Admin: 07/24/16 09:59 Dose: 20 meq Potassium Phos/Sodium Phos (Phos-Nak Packet -) 1 packet PO BID [facility] Last Admin: 07/24/16 10:00 Dose: 1 packet Quetiapine Fumarate (Seroquel -) 12.5 mg PO BID [facility] Last Admin: 07/24/16 10:01 Dose: 12.5 mg Tamsulosin HCl (Flomax -) 0.4 mg PO HS [facility] Last Admin: 07/23/16 21:07 Dose: 0.4 mg Trazodone HCl (Desyrel -) 37.5 mg PO HS [facility] Last Admin: 07/23/16 21:06 Dose: 37.5 mg - Objective Vital Signs: Vital Signs Temperature 98.6 F 07/24/16 10:00 Pulse Rate 62 07/24/16 10:00 Respiratory Rate 20 07/24/16 10:00 Blood Pressure 128/61 07/24/16 10:00 O2 Sat by Pulse Oximetry (%) 98 07/23/16 21:00 Constitutional: Yes: No Distress, Calm Cardiovascular: Yes: S1, S2 Respiratory: Yes: Regular, CTA Bilaterally Musculoskeletal: Yes: WNL Extremities: Yes: WNL Neurological: Yes: Alert, Other Labs: CBC, BMP 07/15/16 07:00 07/15/16 07:00 INR, PTT INR 1.18 (0.82-1.09) H 06/20/16 15:00 Assessment/Plan Problem List - Problems (1) Sepsis Code(s): A41.9 - SEPSIS, UNSPECIFIED ORGANISM Qualifiers: Sepsis type: sepsis due to unspecified organism Qualified Code(s): A41.9 - Sepsis, unspecified organism (2) UTI (urinary tract infection) Code(s): N39.0 - URINARY TRACT INFECTION, SITE NOT SPECIFIED Qualifiers: Urinary tract infection type: acute cystitis Hematuria presence: with hematuria Qualified Code(s): N30.01 - Acute cystitis with hematuria (3) Lactic acid acidosis Code(s): E87.2 - ACIDOSIS (4) Metabolic encephalopathy Code(s): G93.41 - METABOLIC ENCEPHALOPATHY (5) HTN (hypertension) Code(s): I10 - ESSENTIAL (PRIMARY) HYPERTENSION (6) Dementia Code(s): F03.90 - UNSPECIFIED DEMENTIA WITHOUT BEHAVIORAL DISTURBANCE 7 gram positive bacteremia 8 head aches plan continue current mgmt stable
--- NOTE | 2016-07-24 16:15 | PN ---
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 (short form) - Note 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: Events from yesterday noted. Patient rolled out of the bed and fell on the floor on his buttocks. No head trauma. No LOC. O/E Vital Signs Period Temp Pulse Resp BP Sys/Kerr Pulse Ox Last 24 Hr 97.3 F-98.8 F 58-97 18-200 119-140/58-94 98 Heart regular Lungs clear Abd soft Ext no edema Current Medications Acetaminophen (Tylenol -) 650 mg PO Q4H PRN PRN Reason: FEVER OR PAIN Last Admin: 07/05/16 11:38 Dose: 650 mg Ascorbic Acid (Vitamin C -) 500 mg PO DAILY [facility] Last Admin: 07/06/16 09:44 Dose: 500 mg Atorvastatin Calcium (Lipitor -) 10 mg PO HS [facility] Last Admin: 07/05/16 21:30 Dose: 10 mg Collagenase (Santyl -) 1 applic TP DAILY [facility] Last Admin: 07/06/16 09:45 Dose: 1 applic Dronabinol (Marinol -) 2.5 mg PO BID [facility] Last Admin: 07/06/16 09:44 Dose: 2.5 mg Finasteride (Proscar -) 5 mg PO DAILY [facility] Last Admin: 07/06/16 09:44 Dose: 5 mg Haloperidol (Haldol Injection (Fast Acting) -) 2 mg IM Q4H PRN PRN Reason: AGITATION Last Admin: 06/22/16 02:19 Dose: 2 mg Lactobacillus Acidophilus (Bacid -) 1 tab PO DAILY [facility] Last Admin: 07/06/16 09:44 Dose: 1 tab Magnesium Oxide (Mag-Ox -) 400 mg PO BID [facility] Last Admin: 07/06/16 09:44 Dose: 400 mg Metoprolol Succinate (Toprol Xl -) 25 mg PO DAILY [facility] Last Admin: 07/06/16 09:44 Dose: 25 mg Neomycin/Polymyxin/Bacitracin (Neosporin Topical Ointment -) 1 applic TP BID [facility] Last Admin: 07/06/16 09:45 Dose: 1 applic Nystatin/Triamcinolone Acetonide (Mycolog Ii Cream -) 1 applic TP BID [facility] Last Admin: 07/06/16 09:45 Dose: 1 applic Pantoprazole Sodium (Protonix -) 40 mg PO DAILY [facility] Last Admin: 07/06/16 09:44 Dose: 40 mg Potassium Chloride (K-Dur -) 20 meq PO DAILY [facility] Last Admin: 07/06/16 09:44 Dose: 20 meq Potassium Phos/Sodium Phos (Phos-Nak Packet -) 1 packet PO BID [facility] Last Admin: 07/06/16 09:45 Dose: 1 packet Tamsulosin HCl (Flomax -) 0.4 mg PO HS [facility] Last Admin: 07/05/16 21:30 Dose: 0.4 mg Trazodone HCl (Desyrel -) 37.5 mg PO HS [facility] Last Admin: 07/05/16 21:30 Dose: 37.5 mg CBC, BMP 07/15/16 07:00 07/15/16 07:00 A&P Assessment/Plan Headache Resolved. CT head: Nil acute. Neurology follow up appreciated. Tylenol prn. (1) Sepsis Code(s): A41.9 - SEPSIS, UNSPECIFIED ORGANISM Resolved Qualifiers: Sepsis type: sepsis due to unspecified organism Qualified Code(s): A41.9 - Sepsis, unspecified organism (2) UTI (urinary tract infection) Code(s): N39.0 - URINARY TRACT INFECTION, SITE NOT SPECIFIED Afebrile Qualifiers: Urinary tract infection type: acute cystitis Hematuria presence: with hematuria Qualified Code(s): N30.01 - Acute cystitis with hematuria Resolved (3) Metabolic encephalopathy Code(s): G93.41 - METABOLIC ENCEPHALOPATHY stable (4) HTN (hypertension) Code(s): I10 - ESSENTIAL (PRIMARY) HYPERTENSION Controlled (5) Dementia Code(s): F03.90 - UNSPECIFIED DEMENTIA WITHOUT BEHAVIORAL DISTURBANCE S/P Fall yesterday. No trauma to the head. CT head negative X ray of the knees - No fracture. Fall precautions. Awaiting discharge planning and placement
[2016-07-24] MEDS: traZODone HCL 50 MG TABLET (FP) PO SCH (21:05)
[2016-07-24] MEDS: GABAPENTIN 100 MG CAPSULE (FP) PO SCH (21:05)
[2016-07-24] MEDS: TAMSULOSIN HCL 0.4 MG CAP.ER.24H (FP) PO SCH (21:05)
[2016-07-24] MEDS: ATORVASTATIN CA 10 MG TABLET (FP) PO SCH (21:06)
[2016-07-25 08:36] LABS: BASOPHIL 0.6 % (0-2.0); EOSINOPHIL 3.1 % (0-4.5); MCH 27.8 pg (25.7-33.7); MEAN CELL VOLUME 84.3 fl (80-96); MEAN PLT VOLUME 8.6 fl (7.5-11.1); NEUTROPHILS 54.5 % (42.8-82.8); PLATELET COUNT 184 K/MM3 (134-434); RDW 16.9 % (11.9-15.9); WHITE BLOOD COUNT 6.2 K/mm3 (4.0-10.0)
[2016-07-25 08:57] LABS: ALBUMIN 2.4 g/dl (3.4-5.0); ALK PHOS 67 U/L (45-117); ANION GAP 9 (8-16); BILIRUBIN,TOTAL 0.7 mg/dL (0.2-1.0); CALCIUM 8.3 mg/dL (8.5-10.1); CO2 27 mmol/L (21-32); CREATININE 0.7 mg/dL (0.7-1.3); GLUCOSE,RANDOM 70 mg/dL (74-106); SGOT/AST 14 U/L (15-37); SGPT/ALT 19 U/L (12-78); TOT PROT 5.3 g/dl (6.4-8.2)
[2016-07-25] MEDS: QUEtiapine FUMARATE 25 MG TABLET (FP) PO SCH ×2 (09:16→21:08)
[2016-07-25] MEDS: LACTOBACILLUS ACIDOPHILUS 1 EACH TAB (FP) PO SCH (09:16)
[2016-07-25] MEDS: ASCORBIC ACID 500 MG TABLET (FP) PO SCH (09:16)
[2016-07-25] MEDS: MAGNESIUM OXIDE 400 MG TABLET (FP) PO SCH ×2 (09:16→21:08)
[2016-07-25] MEDS: PANTOPRAZOLE 40 MG TABLET (FP) PO SCH (09:16)
[2016-07-25] MEDS: FINASTERIDE 5 MG TABLET (FP) PO SCH (09:16)
[2016-07-25] MEDS: POTASSIUM CHLORIDE TABS 20 MEQ TABLET.ER (FP) PO SCH (09:16)
[2016-07-25] MEDS: NAPH,MB-DB/K PH,MBDB POWDER PACKET PO SCH ×2 (09:17→22:00)
[2016-07-25] MEDS: NEOMYCIN/POLYMYXIN/BACITRACIN (TRIPLE ANTIBIOTIC) 28 GM OINTMENT TP SCH ×2 (09:18→22:00)
[2016-07-25] MEDS: COLLAGENASE CLOSTRIDIUM HIST. 30 GRAMS TUBE TP SCH (10:07)
[2016-07-25] MEDS: NYSTATIN/TRIAMCINOLONE TOPICAL CREAM 15 GM TUBE TP SCH ×2 (10:07→22:00)
--- NOTE | 2016-07-25 12:32 | PN ---
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 (short form) - Note 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: s: denies any cp pain, sob dizzy, abd pain, HERNÁNDEZ o: Vital Signs Period Temp Pulse Resp BP Sys/Kerr Pulse Ox Last 24 Hr 97.9 F-98.8 F 58-80 18-20 107-126/52-63 awake, nad jvd flat, neck supple ctabl, poor effort rrr, nl s1, s2 no mrg ext without e/c/c alert, appropriate no jaundice, diaphoresis Current Medications Generic Name Dose Route Start Last Admin Trade Name Freq PRN Reason Stop Dose Admin Acetaminophen 650 mg 06/12/16 10:27 07/21/16 06:53 Tylenol - PO 650 mg Q4H PRN Administration FEVER OR PAIN Ascorbic Acid 500 mg 06/11/16 10:00 07/25/16 09:16 Vitamin C - PO 500 mg DAILY [facility] Administration Atorvastatin Calcium 10 mg 06/10/16 22:00 07/24/16 21:06 Lipitor - PO 10 mg HS [facility] Administration Collagenase 1 applic 06/11/16 10:00 07/25/16 10:07 Santyl - TP 1 applic DAILY [facility] Administration Finasteride 5 mg 06/11/16 10:00 07/25/16 09:16 Proscar - PO 5 mg DAILY [facility] Administration Gabapentin 100 mg 07/23/16 22:00 07/24/16 21:05 Neurontin - PO 100 mg HS [facility] Administration Lactobacillus Acidophilus 1 tab 06/11/16 10:00 07/25/16 09:16 Bacid - PO 1 tab DAILY [facility] Administration Magnesium Oxide 400 mg 06/16/16 12:30 07/25/16 09:16 Mag-Ox - PO 400 mg BID [facility] Administration Neomycin/Polymyxin/Bacitracin 1 applic 06/27/16 22:00 07/25/16 09:18 Neosporin Topical Ointment - TP 1 applic BID [facility] Administration Nystatin/Triamcinolone Acetonide 1 applic 06/19/16 22:00 07/25/16 10:07 Mycolog Ii Cream - TP 1 applic BID [facility] Administration Pantoprazole Sodium 40 mg 06/11/16 10:00 07/25/16 09:16 Protonix - PO 40 mg DAILY [facility] Administration Potassium Chloride 20 meq 06/27/16 10:00 07/25/16 09:16 K-Dur - PO 20 meq DAILY [facility] Administration Potassium Phos/Sodium Phos 1 packet 06/16/16 12:30 07/25/16 09:17 Phos-Nak Packet - PO 1 packet BID [facility] Administration Quetiapine Fumarate 12.5 mg 07/14/16 11:00 07/25/16 09:16 Seroquel - PO 12.5 mg BID [facility] Administration Tamsulosin HCl 0.4 mg 06/10/16 22:00 07/24/16 21:05 Flomax - PO 0.4 mg HS [facility] Administration Trazodone HCl 37.5 mg 06/10/16 22:00 07/24/16 21:05 Desyrel - PO 37.5 mg HS [facility] Administration CBC, BMP 07/25/16 06:35 07/25/16 06:35 EKG 06/10 14:46 Poor quality/baseline. Sinus tach with diffuse ST abnormalities. anterior ST sagging. possible inferior q waves. low limb voltages. a/p: 80 yo with h/o htn, bph, advanced dementia who sent to ER for hematuria and noted to have UTI with sepsis complicated by elevated cardiac enzymes. positive trops: - borderline trop elevation with flat trend and low ck index, not consistent with acs, likely related to demand in setting of infection and tachycardia. - started low dose atorvastatin while here - bp too low for bb - not on asa due to hematuria - echo done here this admit was non-diagnostic due to pt agitation/lack of cooperation - no chest pain symptoms, no further cardiac testing for now htn - stable, monitor bp off meds for now sepsis/uti/hematuria - resolved, awaiting placement now, mgm't per pmd/urology/ID
--- NOTE | 2016-07-25 14:31 | PN ---
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 (short form) - Note 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: Patient seen and examined. No acute event overnight. O/E Vital Signs Period Temp Pulse Resp BP Sys/Kerr Pulse Ox Last 24 Hr 97.9 F-98.8 F 58-68 18-20 107-126/52-63 Heart regular Lungs clear Abd soft Ext no edema Current Medications Acetaminophen (Tylenol -) 650 mg PO Q4H PRN PRN Reason: FEVER OR PAIN Last Admin: 07/05/16 11:38 Dose: 650 mg Ascorbic Acid (Vitamin C -) 500 mg PO DAILY [facility] Last Admin: 07/06/16 09:44 Dose: 500 mg Atorvastatin Calcium (Lipitor -) 10 mg PO HS [facility] Last Admin: 07/05/16 21:30 Dose: 10 mg Collagenase (Santyl -) 1 applic TP DAILY [facility] Last Admin: 07/06/16 09:45 Dose: 1 applic Dronabinol (Marinol -) 2.5 mg PO BID [facility] Last Admin: 07/06/16 09:44 Dose: 2.5 mg Finasteride (Proscar -) 5 mg PO DAILY [facility] Last Admin: 07/06/16 09:44 Dose: 5 mg Haloperidol (Haldol Injection (Fast Acting) -) 2 mg IM Q4H PRN PRN Reason: AGITATION Last Admin: 06/22/16 02:19 Dose: 2 mg Lactobacillus Acidophilus (Bacid -) 1 tab PO DAILY [facility] Last Admin: 07/06/16 09:44 Dose: 1 tab Magnesium Oxide (Mag-Ox -) 400 mg PO BID [facility] Last Admin: 07/06/16 09:44 Dose: 400 mg Metoprolol Succinate (Toprol Xl -) 25 mg PO DAILY [facility] Last Admin: 07/06/16 09:44 Dose: 25 mg Neomycin/Polymyxin/Bacitracin (Neosporin Topical Ointment -) 1 applic TP BID [facility] Last Admin: 07/06/16 09:45 Dose: 1 applic Nystatin/Triamcinolone Acetonide (Mycolog Ii Cream -) 1 applic TP BID [facility] Last Admin: 07/06/16 09:45 Dose: 1 applic Pantoprazole Sodium (Protonix -) 40 mg PO DAILY [facility] Last Admin: 07/06/16 09:44 Dose: 40 mg Potassium Chloride (K-Dur -) 20 meq PO DAILY [facility] Last Admin: 07/06/16 09:44 Dose: 20 meq Potassium Phos/Sodium Phos (Phos-Nak Packet -) 1 packet PO BID [facility] Last Admin: 07/06/16 09:45 Dose: 1 packet Tamsulosin HCl (Flomax -) 0.4 mg PO HS [facility] Last Admin: 07/05/16 21:30 Dose: 0.4 mg Trazodone HCl (Desyrel -) 37.5 mg PO HS [facility] Last Admin: 07/05/16 21:30 Dose: 37.5 mg CBC, BMP 07/25/16 06:35 07/25/16 06:35 A&P Assessment/Plan Headache Resolved. CT head: Nil acute. Neurology follow up appreciated. Tylenol prn. (1) Sepsis Code(s): A41.9 - SEPSIS, UNSPECIFIED ORGANISM Resolved Qualifiers: Sepsis type: sepsis due to unspecified organism Qualified Code(s): A41.9 - Sepsis, unspecified organism (2) UTI (urinary tract infection) Code(s): N39.0 - URINARY TRACT INFECTION, SITE NOT SPECIFIED Afebrile Qualifiers: Urinary tract infection type: acute cystitis Hematuria presence: with hematuria Qualified Code(s): N30.01 - Acute cystitis with hematuria Resolved (3) Metabolic encephalopathy Code(s): G93.41 - METABOLIC ENCEPHALOPATHY stable (4) HTN (hypertension) Code(s): I10 - ESSENTIAL (PRIMARY) HYPERTENSION Controlled (5) Dementia Code(s): F03.90 - UNSPECIFIED DEMENTIA WITHOUT BEHAVIORAL DISTURBANCE 6) Anemia H/H low Anemia work up ordered. 7) S/P Fall No trauma to the head. CT head negative X ray of the knees - No fracture. Fall precautions. Awaiting discharge planning and placement
[2016-07-25] MEDS ORDERED: PT OWN MED DRAWER 7, Y5N ONE (19:53)
[2016-07-25] MEDS: ATORVASTATIN CA 10 MG TABLET (FP) PO SCH (21:08)
[2016-07-25] MEDS: TAMSULOSIN HCL 0.4 MG CAP.ER.24H (FP) PO SCH (21:08)
[2016-07-25] MEDS: GABAPENTIN 100 MG CAPSULE (FP) PO SCH (21:08)
[2016-07-25] MEDS: traZODone HCL 50 MG TABLET (FP) PO SCH (21:09)
[2016-07-26 08:49] LABS: FERRITIN 21.438 ng/ml (16.4-293.9); THYROID STIMULATING HORMONE 2.28 uIU/ml (0.358-3.74)
[2016-07-26] MEDS: PANTOPRAZOLE 40 MG TABLET (FP) PO SCH (09:08)
[2016-07-26] MEDS: QUEtiapine FUMARATE 25 MG TABLET (FP) PO SCH ×2 (09:08→21:34)
[2016-07-26] MEDS: MAGNESIUM OXIDE 400 MG TABLET (FP) PO SCH ×2 (09:08→21:33)
[2016-07-26] MEDS: LACTOBACILLUS ACIDOPHILUS 1 EACH TAB (FP) PO SCH (09:08)
[2016-07-26] MEDS: POTASSIUM CHLORIDE TABS 20 MEQ TABLET.ER (FP) PO SCH (09:08)
[2016-07-26] MEDS: ASCORBIC ACID 500 MG TABLET (FP) PO SCH (09:08)
[2016-07-26] MEDS: FINASTERIDE 5 MG TABLET (FP) PO SCH (09:08)
[2016-07-26] MEDS: NYSTATIN/TRIAMCINOLONE TOPICAL CREAM 15 GM TUBE TP SCH (09:09)
[2016-07-26] MEDS: NEOMYCIN/POLYMYXIN/BACITRACIN (TRIPLE ANTIBIOTIC) 28 GM OINTMENT TP SCH ×2 (09:10→21:35)
[2016-07-26] MEDS: COLLAGENASE CLOSTRIDIUM HIST. 30 GRAMS TUBE TP SCH (09:11)
[2016-07-26] MEDS: NAPH,MB-DB/K PH,MBDB POWDER PACKET PO SCH ×2 (09:11→21:34)
--- NOTE | 2016-07-26 11:25 | PN ---
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, Physician History of Present Illness: patient very restless c/o headache - Current Medication List Current Medications: Active Medications Acetaminophen (Tylenol -) 650 mg PO Q4H PRN PRN Reason: FEVER OR PAIN Last Admin: 07/21/16 06:53 Dose: 650 mg Ascorbic Acid (Vitamin C -) 500 mg PO DAILY [facility] Last Admin: 07/26/16 09:08 Dose: 500 mg Atorvastatin Calcium (Lipitor -) 10 mg PO HS [facility] Last Admin: 07/25/16 21:08 Dose: 10 mg Collagenase (Santyl -) 1 applic TP DAILY [facility] Last Admin: 07/26/16 09:11 Dose: 1 applic Finasteride (Proscar -) 5 mg PO DAILY [facility] Last Admin: 07/26/16 09:08 Dose: 5 mg Gabapentin (Neurontin -) 100 mg PO HS [facility] Last Admin: 07/25/16 21:08 Dose: 100 mg Lactobacillus Acidophilus (Bacid -) 1 tab PO DAILY [facility] Last Admin: 07/26/16 09:08 Dose: 1 tab Magnesium Oxide (Mag-Ox -) 400 mg PO BID [facility] Last Admin: 07/26/16 09:08 Dose: 400 mg Neomycin/Polymyxin/Bacitracin (Neosporin Topical Ointment -) 1 applic TP BID [facility] Last Admin: 07/26/16 09:10 Dose: 1 applic Nystatin/Triamcinolone Acetonide (Mycolog Ii Cream -) 1 applic TP BID [facility] Last Admin: 07/26/16 09:09 Dose: 1 applic Pantoprazole Sodium (Protonix -) 40 mg PO DAILY [facility] Last Admin: 07/26/16 09:08 Dose: 40 mg Potassium Chloride (K-Dur -) 20 meq PO DAILY [facility] Last Admin: 07/26/16 09:08 Dose: 20 meq Potassium Phos/Sodium Phos (Phos-Nak Packet -) 1 packet PO BID [facility] Last Admin: 07/26/16 09:11 Dose: 1 packet Quetiapine Fumarate (Seroquel -) 12.5 mg PO BID [facility] Last Admin: 07/26/16 09:08 Dose: 12.5 mg Tamsulosin HCl (Flomax -) 0.4 mg PO HS [facility] Last Admin: 07/25/16 21:08 Dose: 0.4 mg Trazodone HCl (Desyrel -) 37.5 mg PO HS [facility] Last Admin: 07/25/16 21:09 Dose: 37.5 mg - Objective Vital Signs: Vital Signs Temperature 98.7 F 07/26/16 06:00 Pulse Rate 68 07/26/16 06:00 Respiratory Rate 20 07/26/16 06:00 Blood Pressure 135/80 07/26/16 06:00 O2 Sat by Pulse Oximetry (%) 98 07/23/16 21:00 Constitutional: Yes: Calm, Moderate Distress Cardiovascular: Yes: S1, S2 Respiratory: Yes: Regular, CTA Bilaterally Gastrointestinal: Yes: Normal Bowel Sounds, Soft Musculoskeletal: Yes: WNL Extremities: Yes: WNL Neurological: Yes: Alert, Other Psychiatric: Yes: Other Labs: CBC, BMP 07/25/16 06:35 07/25/16 06:35 INR, PTT INR 1.18 (0.82-1.09) H 06/20/16 15:00 Assessment/Plan Problem List - Problems (1) Sepsis Code(s): A41.9 - SEPSIS, UNSPECIFIED ORGANISM Qualifiers: Sepsis type: sepsis due to unspecified organism Qualified Code(s): A41.9 - Sepsis, unspecified organism (2) UTI (urinary tract infection) Code(s): N39.0 - URINARY TRACT INFECTION, SITE NOT SPECIFIED Qualifiers: Urinary tract infection type: acute cystitis Hematuria presence: with hematuria Qualified Code(s): N30.01 - Acute cystitis with hematuria (3) Lactic acid acidosis Code(s): E87.2 - ACIDOSIS (4) Metabolic encephalopathy Code(s): G93.41 - METABOLIC ENCEPHALOPATHY (5) HTN (hypertension) Code(s): I10 - ESSENTIAL (PRIMARY) HYPERTENSION (6) Dementia Code(s): F03.90 - UNSPECIFIED DEMENTIA WITHOUT BEHAVIORAL DISTURBANCE 7 gram positive bacteremia 8 head aches patient very restless probably due to headaches plan continue to monitor rest as per primary pain control if headaches continue consider scan last scan was essentially normal
--- NOTE | 2016-07-26 11:40 | PN ---
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 (short form) - Note 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: s: denies any cp pain, sob dizzy, abd pain o: Vital Signs Period Temp Pulse Resp BP Sys/Kerr Pulse Ox Last 24 Hr 98.7 F-98.8 F 64-68 18-20 99-135/53-80 awake, nad jvd flat, neck supple ctabl, poor effort rrr, nl s1, s2 no mrg ext without e/c/c alert, appropriate no jaundice, diaphoresis Current Medications Generic Name Dose Route Start Last Admin Trade Name Freq PRN Reason Stop Dose Admin Acetaminophen 650 mg 06/12/16 10:27 07/21/16 06:53 Tylenol - PO 650 mg Q4H PRN Administration FEVER OR PAIN Ascorbic Acid 500 mg 06/11/16 10:00 07/26/16 09:08 Vitamin C - PO 500 mg DAILY [facility] Administration Atorvastatin Calcium 10 mg 06/10/16 22:00 07/25/16 21:08 Lipitor - PO 10 mg HS [facility] Administration Collagenase 1 applic 06/11/16 10:00 07/26/16 09:11 Santyl - TP 1 applic DAILY [facility] Administration Finasteride 5 mg 06/11/16 10:00 07/26/16 09:08 Proscar - PO 5 mg DAILY [facility] Administration Gabapentin 100 mg 07/23/16 22:00 07/25/16 21:08 Neurontin - PO 100 mg HS [facility] Administration Lactobacillus Acidophilus 1 tab 06/11/16 10:00 07/26/16 09:08 Bacid - PO 1 tab DAILY [facility] Administration Magnesium Oxide 400 mg 06/16/16 12:30 07/26/16 09:08 Mag-Ox - PO 400 mg BID [facility] Administration Neomycin/Polymyxin/Bacitracin 1 applic 06/27/16 22:00 07/26/16 09:10 Neosporin Topical Ointment - TP 1 applic BID [facility] Administration Nystatin/Triamcinolone Acetonide 1 applic 06/19/16 22:00 07/26/16 09:09 Mycolog Ii Cream - TP 1 applic BID [facility] Administration Pantoprazole Sodium 40 mg 06/11/16 10:00 07/26/16 09:08 Protonix - PO 40 mg DAILY [facility] Administration Potassium Chloride 20 meq 06/27/16 10:00 07/26/16 09:08 K-Dur - PO 20 meq DAILY [facility] Administration Potassium Phos/Sodium Phos 1 packet 06/16/16 12:30 07/26/16 09:11 Phos-Nak Packet - PO 1 packet BID [facility] Administration Quetiapine Fumarate 12.5 mg 07/14/16 11:00 07/26/16 09:08 Seroquel - PO 12.5 mg BID [facility] Administration Tamsulosin HCl 0.4 mg 06/10/16 22:00 07/25/16 21:08 Flomax - PO 0.4 mg HS [facility] Administration Trazodone HCl 37.5 mg 06/10/16 22:00 07/25/16 21:09 Desyrel - PO 37.5 mg HS [facility] Administration CBC, BMP 07/25/16 06:35 07/25/16 06:35 EKG 06/10 14:46 Poor quality/baseline. Sinus tach with diffuse ST abnormalities. anterior ST sagging. possible inferior q waves. low limb voltages. a/p: 80 yo with h/o htn, bph, advanced dementia who sent to ER for hematuria and noted to have UTI with sepsis complicated by elevated cardiac enzymes. positive trops: - borderline trop elevation with flat trend and low ck index, not consistent with acs, likely related to demand in setting of infection and tachycardia. - started low dose atorvastatin while here - bp too low for bb - not on asa due to hematuria - echo done here this admit was non-diagnostic due to pt agitation/lack of cooperation - no chest pain symptoms, no further cardiac testing for now htn - stable, monitor bp off meds for now sepsis/uti/hematuria - resolved, awaiting placement now, mgm't per pmd/urology/ID
[2016-07-26] MEDS: ACETAMINOPHEN 325 MG TABLET (FP) PO PRN (16:02)
[2016-07-26] MEDS ORDERED: LORAZEPAM CARPU-JECT 2 MG/ML DISP.SYRIN IM PRN (16:53)
--- NOTE | 2016-07-26 16:58 | PN ---
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 (short form) - Note 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: Patient seen and examined. Noted to be confused/restless since morning. Trying to get out of the bed. No fall or injury. O/E Vital Signs Period Temp Pulse Resp BP Sys/Kerr Pulse Ox Last 24 Hr 98.2 F-98.7 F 62-68 18-20 135-231/68-80 Heart regular Lungs clear Abd soft Ext no edema Current Medications Acetaminophen (Tylenol -) 650 mg PO Q4H PRN PRN Reason: FEVER OR PAIN Last Admin: 07/26/16 16:02 Dose: 650 mg Ascorbic Acid (Vitamin C -) 500 mg PO DAILY [facility] Last Admin: 07/26/16 09:08 Dose: 500 mg Atorvastatin Calcium (Lipitor -) 10 mg PO HS [facility] Last Admin: 07/25/16 21:08 Dose: 10 mg Collagenase (Santyl -) 1 applic TP DAILY [facility] Last Admin: 07/26/16 09:11 Dose: 1 applic Finasteride (Proscar -) 5 mg PO DAILY [facility] Last Admin: 07/26/16 09:08 Dose: 5 mg Gabapentin (Neurontin -) 100 mg PO HS [facility] Last Admin: 07/25/16 21:08 Dose: 100 mg Lactobacillus Acidophilus (Bacid -) 1 tab PO DAILY [facility] Last Admin: 07/26/16 09:08 Dose: 1 tab Lorazepam (Ativan Injection -) 0.5 mg IM DAILY PRN PRN Reason: AGITATION Magnesium Oxide (Mag-Ox -) 400 mg PO BID [facility] Last Admin: 07/26/16 09:08 Dose: 400 mg Neomycin/Polymyxin/Bacitracin (Neosporin Topical Ointment -) 1 applic TP BID [facility] Last Admin: 07/26/16 09:10 Dose: 1 applic Nystatin/Triamcinolone Acetonide (Mycolog Ii Cream -) 1 applic TP BID [facility] Last Admin: 07/26/16 09:09 Dose: 1 applic Pantoprazole Sodium (Protonix -) 40 mg PO DAILY [facility] Last Admin: 07/26/16 09:08 Dose: 40 mg Potassium Chloride (K-Dur -) 20 meq PO DAILY [facility] Last Admin: 07/26/16 09:08 Dose: 20 meq Potassium Phos/Sodium Phos (Phos-Nak Packet -) 1 packet PO BID [facility] Last Admin: 07/26/16 09:11 Dose: 1 packet Quetiapine Fumarate (Seroquel -) 12.5 mg PO BID [facility] Last Admin: 07/26/16 09:08 Dose: 12.5 mg Tamsulosin HCl (Flomax -) 0.4 mg PO HS [facility] Last Admin: 07/25/16 21:08 Dose: 0.4 mg Trazodone HCl (Desyrel -) 37.5 mg PO HS [facility] Last Admin: 07/25/16 21:09 Dose: 37.5 mg CBC, BMP 07/25/16 06:35 07/25/16 06:35 A&P Assessment/Plan Headache Resolved. CT head: Nil acute. Neurology follow up appreciated. Tylenol prn. (1) Sepsis Code(s): A41.9 - SEPSIS, UNSPECIFIED ORGANISM Resolved Qualifiers: Sepsis type: sepsis due to unspecified organism Qualified Code(s): A41.9 - Sepsis, unspecified organism (2) UTI (urinary tract infection) Code(s): N39.0 - URINARY TRACT INFECTION, SITE NOT SPECIFIED Afebrile Qualifiers: Urinary tract infection type: acute cystitis Hematuria presence: with hematuria Qualified Code(s): N30.01 - Acute cystitis with hematuria Resolved (3) Metabolic encephalopathy Code(s): G93.41 - METABOLIC ENCEPHALOPATHY stable (4) HTN (hypertension) Code(s): I10 - ESSENTIAL (PRIMARY) HYPERTENSION Controlled (5) Dementia with behavioral disturbance Code(s): F03.90 - UNSPECIFIED DEMENTIA WITHOUT BEHAVIORAL DISTURBANCE Mostly stable but occasionally restless/anxious. Ativan prn. Fall precautions. 6) Anemia H/H low Anemia work up ordered-pending. 7) S/P Fall No trauma to the head. CT head negative X ray of the knees - No fracture. Fall precautions. Awaiting discharge planning and placement
[2016-07-26] MEDS: TAMSULOSIN HCL 0.4 MG CAP.ER.24H (FP) PO SCH (21:33)
[2016-07-26] MEDS: traZODone HCL 50 MG TABLET (FP) PO SCH (21:34)
[2016-07-26] MEDS: GABAPENTIN 100 MG CAPSULE (FP) PO SCH (21:34)
[2016-07-26] MEDS: ATORVASTATIN CA 10 MG TABLET (FP) PO SCH (21:34)
[2016-07-27 06:06] LABS: SERUM IRON 20 ug/dL (38-169); TOTAL IRON BINDING CAPACITY 262 ug/dL (250-450); UIBC 242 ug/dL (111-343)
[2016-07-27] MEDS ORDERED: PT OWN MED DRAWER 7, Y5N ONE (09:36)
[2016-07-27] MEDS: POTASSIUM CHLORIDE TABS 20 MEQ TABLET.ER (FP) PO SCH (09:42)
[2016-07-27] MEDS: MAGNESIUM OXIDE 400 MG TABLET (FP) PO SCH ×2 (09:42→22:03)
[2016-07-27] MEDS: NAPH,MB-DB/K PH,MBDB POWDER PACKET PO SCH ×2 (09:42→22:03)
[2016-07-27] MEDS: LACTOBACILLUS ACIDOPHILUS 1 EACH TAB (FP) PO SCH (09:42)
[2016-07-27] MEDS: FINASTERIDE 5 MG TABLET (FP) PO SCH (09:43)
[2016-07-27] MEDS: QUEtiapine FUMARATE 25 MG TABLET (FP) PO SCH ×2 (09:43→22:03)
[2016-07-27] MEDS: PANTOPRAZOLE 40 MG TABLET (FP) PO SCH (09:43)
[2016-07-27] MEDS: NYSTATIN/TRIAMCINOLONE TOPICAL CREAM 15 GM TUBE TP SCH ×2 (09:45→22:03)
[2016-07-27] MEDS: COLLAGENASE CLOSTRIDIUM HIST. 30 GRAMS TUBE TP SCH (09:45)
[2016-07-27] MEDS: NEOMYCIN/POLYMYXIN/BACITRACIN (TRIPLE ANTIBIOTIC) 28 GM OINTMENT TP SCH ×2 (09:45→22:04)
[2016-07-27] MEDS: ASCORBIC ACID 500 MG TABLET (FP) PO SCH (09:45)
[2016-07-27] MEDS: ACETAMINOPHEN 325 MG TABLET (FP) PO PRN (10:22)
--- NOTE | 2016-07-27 17:04 | PN ---
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, Physician History of Present Illness: no headache but shoulder pain much calmer than yesterday - Current Medication List Current Medications: Active Medications Acetaminophen (Tylenol -) 650 mg PO Q4H PRN PRN Reason: FEVER OR PAIN Last Admin: 07/27/16 10:22 Dose: 650 mg Ascorbic Acid (Vitamin C -) 500 mg PO DAILY [facility] Last Admin: 07/27/16 09:45 Dose: 500 mg Atorvastatin Calcium (Lipitor -) 10 mg PO HS [facility] Last Admin: 07/26/16 21:34 Dose: 10 mg Collagenase (Santyl -) 1 applic TP DAILY [facility] Last Admin: 07/27/16 09:45 Dose: 1 applic Finasteride (Proscar -) 5 mg PO DAILY [facility] Last Admin: 07/27/16 09:43 Dose: 5 mg Gabapentin (Neurontin -) 100 mg PO HS [facility] Last Admin: 07/26/16 21:34 Dose: 100 mg Lactobacillus Acidophilus (Bacid -) 1 tab PO DAILY [facility] Last Admin: 07/27/16 09:42 Dose: 1 tab Lorazepam (Ativan Injection -) 0.5 mg IM DAILY PRN PRN Reason: AGITATION Magnesium Oxide (Mag-Ox -) 400 mg PO BID [facility] Last Admin: 07/27/16 09:42 Dose: 400 mg Neomycin/Polymyxin/Bacitracin (Neosporin Topical Ointment -) 1 applic TP BID [facility] Last Admin: 07/27/16 09:45 Dose: 1 applic Nystatin/Triamcinolone Acetonide (Mycolog Ii Cream -) 1 applic TP BID [facility] Last Admin: 07/27/16 09:45 Dose: 1 applic Pantoprazole Sodium (Protonix -) 40 mg PO DAILY [facility] Last Admin: 07/27/16 09:43 Dose: 40 mg Potassium Chloride (K-Dur -) 20 meq PO DAILY [facility] Last Admin: 07/27/16 09:42 Dose: 20 meq Potassium Phos/Sodium Phos (Phos-Nak Packet -) 1 packet PO BID [facility] Last Admin: 07/27/16 09:42 Dose: 1 packet Quetiapine Fumarate (Seroquel -) 12.5 mg PO BID [facility] Last Admin: 07/27/16 09:43 Dose: 12.5 mg Tamsulosin HCl (Flomax -) 0.4 mg PO HS [facility] Last Admin: 07/26/16 21:33 Dose: 0.4 mg Trazodone HCl (Desyrel -) 37.5 mg PO HS [facility] Last Admin: 07/26/16 21:34 Dose: 37.5 mg - Objective Vital Signs: Vital Signs Temperature 98.5 F 07/27/16 14:18 Pulse Rate 84 07/27/16 14:18 Respiratory Rate 16 07/27/16 14:18 Blood Pressure 111/70 07/27/16 14:18 O2 Sat by Pulse Oximetry (%) 98 07/23/16 21:00 Constitutional: Yes: Calm, Mild Distress Cardiovascular: Yes: S1, S2 Respiratory: Yes: Regular, CTA Bilaterally Gastrointestinal: Yes: Normal Bowel Sounds, Soft Musculoskeletal: Yes: WNL Extremities: Yes: WNL Neurological: Yes: Alert, Other Labs: CBC, BMP 07/25/16 06:35 07/25/16 06:35 INR, PTT INR 1.18 (0.82-1.09) H 06/20/16 15:00 Assessment/Plan Problem List - Problems (1) Sepsis Code(s): A41.9 - SEPSIS, UNSPECIFIED ORGANISM Qualifiers: Sepsis type: sepsis due to unspecified organism Qualified Code(s): A41.9 - Sepsis, unspecified organism (2) UTI (urinary tract infection) Code(s): N39.0 - URINARY TRACT INFECTION, SITE NOT SPECIFIED Qualifiers: Urinary tract infection type: acute cystitis Hematuria presence: with hematuria Qualified Code(s): N30.01 - Acute cystitis with hematuria (3) Lactic acid acidosis Code(s): E87.2 - ACIDOSIS (4) Metabolic encephalopathy Code(s): G93.41 - METABOLIC ENCEPHALOPATHY (5) HTN (hypertension) Code(s): I10 - ESSENTIAL (PRIMARY) HYPERTENSION (6) Dementia Code(s): F03.90 - UNSPECIFIED DEMENTIA WITHOUT BEHAVIORAL DISTURBANCE 7 gram positive bacteremia 8 head aches plan continue to monitor rest as per primary pain control patient better
--- NOTE | 2016-07-27 19:13 | PN ---
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 (short form) - Note 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: Patient seen and examined. No acute event overnight. O/E Vital Signs Period Temp Pulse Resp BP Sys/Kerr Pulse Ox Last 24 Hr 97.9 F-98.5 F 63-84 16-20 104-114/55-70 Heart regular Lungs clear Abd soft Ext no edema Current Medications Acetaminophen (Tylenol -) 650 mg PO Q4H PRN PRN Reason: FEVER OR PAIN Last Admin: 07/26/16 16:02 Dose: 650 mg Ascorbic Acid (Vitamin C -) 500 mg PO DAILY [facility] Last Admin: 07/26/16 09:08 Dose: 500 mg Atorvastatin Calcium (Lipitor -) 10 mg PO HS [facility] Last Admin: 07/25/16 21:08 Dose: 10 mg Collagenase (Santyl -) 1 applic TP DAILY [facility] Last Admin: 07/26/16 09:11 Dose: 1 applic Finasteride (Proscar -) 5 mg PO DAILY [facility] Last Admin: 07/26/16 09:08 Dose: 5 mg Gabapentin (Neurontin -) 100 mg PO HS [facility] Last Admin: 07/25/16 21:08 Dose: 100 mg Lactobacillus Acidophilus (Bacid -) 1 tab PO DAILY [facility] Last Admin: 07/26/16 09:08 Dose: 1 tab Lorazepam (Ativan Injection -) 0.5 mg IM DAILY PRN PRN Reason: AGITATION Magnesium Oxide (Mag-Ox -) 400 mg PO BID [facility] Last Admin: 07/26/16 09:08 Dose: 400 mg Neomycin/Polymyxin/Bacitracin (Neosporin Topical Ointment -) 1 applic TP BID [facility] Last Admin: 07/26/16 09:10 Dose: 1 applic Nystatin/Triamcinolone Acetonide (Mycolog Ii Cream -) 1 applic TP BID [facility] Last Admin: 07/26/16 09:09 Dose: 1 applic Pantoprazole Sodium (Protonix -) 40 mg PO DAILY [facility] Last Admin: 07/26/16 09:08 Dose: 40 mg Potassium Chloride (K-Dur -) 20 meq PO DAILY [facility] Last Admin: 07/26/16 09:08 Dose: 20 meq Potassium Phos/Sodium Phos (Phos-Nak Packet -) 1 packet PO BID [facility] Last Admin: 07/26/16 09:11 Dose: 1 packet Quetiapine Fumarate (Seroquel -) 12.5 mg PO BID [facility] Last Admin: 07/26/16 09:08 Dose: 12.5 mg Tamsulosin HCl (Flomax -) 0.4 mg PO HS [facility] Last Admin: 07/25/16 21:08 Dose: 0.4 mg Trazodone HCl (Desyrel -) 37.5 mg PO HS [facility] Last Admin: 07/25/16 21:09 Dose: 37.5 mg CBC, BMP 07/25/16 06:35 07/25/16 06:35 A&P Assessment/Plan Headache Resolved. CT head: Nil acute. Neurology follow up appreciated. Tylenol prn. (1) Sepsis Code(s): A41.9 - SEPSIS, UNSPECIFIED ORGANISM Resolved Qualifiers: Sepsis type: sepsis due to unspecified organism Qualified Code(s): A41.9 - Sepsis, unspecified organism (2) UTI (urinary tract infection) Code(s): N39.0 - URINARY TRACT INFECTION, SITE NOT SPECIFIED Afebrile Qualifiers: Urinary tract infection type: acute cystitis Hematuria presence: with hematuria Qualified Code(s): N30.01 - Acute cystitis with hematuria Resolved (3) Metabolic encephalopathy Code(s): G93.41 - METABOLIC ENCEPHALOPATHY stable (4) HTN (hypertension) Code(s): I10 - ESSENTIAL (PRIMARY) HYPERTENSION Controlled (5) Dementia with behavioral disturbance Code(s): F03.90 - UNSPECIFIED DEMENTIA WITHOUT BEHAVIORAL DISTURBANCE Mostly stable but occasionally restless/anxious. Ativan prn. Fall precautions. 6) Anemia H/H low Anemia work up ordered-pending. 7) S/P Fall No trauma to the head. CT head negative X ray of the knees - No fracture. Fall precautions. Awaiting discharge planning and placement
[2016-07-27] MEDS: GABAPENTIN 100 MG CAPSULE (FP) PO SCH (22:03)
[2016-07-27] MEDS: TAMSULOSIN HCL 0.4 MG CAP.ER.24H (FP) PO SCH (22:03)
[2016-07-27] MEDS: traZODone HCL 50 MG TABLET (FP) PO SCH (22:03)
[2016-07-27] MEDS: ATORVASTATIN CA 10 MG TABLET (FP) PO SCH (22:03)
[2016-07-28 06:56] LABS: MCH 27.5 pg (25.7-33.7); MCHC 32.3 g/dl (32.0-35.9); MEAN CELL VOLUME 84.9 fl (80-96); MEAN PLT VOLUME 8.9 fl (7.5-11.1); PLATELET COUNT 244 K/MM3 (134-434); RDW 17.1 % (11.9-15.9); WHITE BLOOD COUNT 8.3 K/mm3 (4.0-10.0)
[2016-07-28 07:22] LABS: ALBUMIN 2.9 g/dl (3.4-5.0); ANION GAP 7 (8-16); CALCIUM 9.1 mg/dL (8.5-10.1); CO2 27 mmol/L (21-32); GLUCOSE,RANDOM 73 mg/dL (74-106)
[2016-07-28 07:26] LABS: ALK PHOS 75 U/L (45-117); BILIRUBIN,TOTAL 0.8 mg/dL (0.2-1.0); CREATININE 0.7 mg/dL (0.7-1.3); SGOT/AST 38 U/L (15-37); SGPT/ALT 27 U/L (12-78); TOT PROT 6.4 g/dl (6.4-8.2)
[2016-07-28] MEDS: LACTOBACILLUS ACIDOPHILUS 1 EACH TAB (FP) PO SCH ×2 (11:29→15:10)
[2016-07-28] MEDS: POTASSIUM CHLORIDE TABS 20 MEQ TABLET.ER (FP) PO SCH ×2 (11:29→15:11)
[2016-07-28] MEDS: PANTOPRAZOLE 40 MG TABLET (FP) PO SCH ×2 (11:30→15:10)
[2016-07-28] MEDS: NAPH,MB-DB/K PH,MBDB POWDER PACKET PO SCH ×3 (11:30→22:39)
[2016-07-28] MEDS: MAGNESIUM OXIDE 400 MG TABLET (FP) PO SCH ×3 (11:30→22:38)
[2016-07-28] MEDS: FINASTERIDE 5 MG TABLET (FP) PO SCH ×2 (11:30→15:09)
[2016-07-28] MEDS: QUEtiapine FUMARATE 25 MG TABLET (FP) PO SCH ×3 (11:30→22:37)
[2016-07-28] MEDS: ASCORBIC ACID 500 MG TABLET (FP) PO SCH ×2 (11:30→15:11)
[2016-07-28] MEDS: COLLAGENASE CLOSTRIDIUM HIST. 30 GRAMS TUBE TP SCH (11:31)
[2016-07-28] MEDS: NEOMYCIN/POLYMYXIN/BACITRACIN (TRIPLE ANTIBIOTIC) 28 GM OINTMENT TP SCH ×2 (11:31→22:13)
[2016-07-28] MEDS: NYSTATIN/TRIAMCINOLONE TOPICAL CREAM 15 GM TUBE TP SCH ×3 (11:31→22:13)
[2016-07-28] MEDS: TAMSULOSIN HCL 0.4 MG CAP.ER.24H (FP) PO SCH ×2 (15:09→22:38)
[2016-07-28] MEDS: ACETAMINOPHEN 325 MG TABLET (FP) PO PRN (15:10)
[2016-07-28] MEDS: GABAPENTIN 100 MG CAPSULE (FP) PO SCH ×2 (15:11→22:39)
--- NOTE | 2016-07-28 16:04 | PN ---
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, Physician History of Present Illness: stable no new issues - Current Medication List Current Medications: Active Medications Acetaminophen (Tylenol -) 650 mg PO Q4H PRN PRN Reason: FEVER OR PAIN Last Admin: 07/28/16 15:10 Dose: 650 mg Ascorbic Acid (Vitamin C -) 500 mg PO DAILY [facility] Last Admin: 07/28/16 15:11 Dose: 500 mg Atorvastatin Calcium (Lipitor -) 10 mg PO HS [facility] Last Admin: 07/27/16 22:03 Dose: 10 mg Collagenase (Santyl -) 1 applic TP DAILY [facility] Last Admin: 07/28/16 11:31 Dose: 1 applic Finasteride (Proscar -) 5 mg PO DAILY [facility] Last Admin: 07/28/16 15:09 Dose: 5 mg Gabapentin (Neurontin -) 100 mg PO HS [facility] Last Admin: 07/28/16 15:11 Dose: 100 mg Lactobacillus Acidophilus (Bacid -) 1 tab PO DAILY [facility] Last Admin: 07/28/16 15:10 Dose: 1 tab Lorazepam (Ativan Injection -) 0.5 mg IM DAILY PRN PRN Reason: AGITATION Magnesium Oxide (Mag-Ox -) 400 mg PO BID [facility] Last Admin: 07/28/16 15:09 Dose: 400 mg Neomycin/Polymyxin/Bacitracin (Neosporin Topical Ointment -) 1 applic TP BID [facility] Last Admin: 07/28/16 11:31 Dose: 1 applic Nystatin/Triamcinolone Acetonide (Mycolog Ii Cream -) 1 applic TP BID [facility] Last Admin: 07/28/16 11:37 Dose: Not Given Pantoprazole Sodium (Protonix -) 40 mg PO DAILY [facility] Last Admin: 07/28/16 15:10 Dose: 40 mg Potassium Chloride (K-Dur -) 20 meq PO DAILY [facility] Last Admin: 07/28/16 15:11 Dose: 20 meq Potassium Phos/Sodium Phos (Phos-Nak Packet -) 1 packet PO BID [facility] Last Admin: 07/28/16 15:11 Dose: 1 packet Quetiapine Fumarate (Seroquel -) 12.5 mg PO BID [facility] Last Admin: 07/28/16 15:10 Dose: 12.5 mg Tamsulosin HCl (Flomax -) 0.4 mg PO HS [facility] Last Admin: 07/28/16 15:09 Dose: 0.4 mg Trazodone HCl (Desyrel -) 37.5 mg PO HS [facility] Last Admin: 07/27/16 22:03 Dose: 37.5 mg - Objective Vital Signs: Vital Signs Temperature 99.0 F 07/28/16 15:07 Pulse Rate 75 07/28/16 15:07 Respiratory Rate 18 07/28/16 15:07 Blood Pressure 107/61 07/28/16 15:07 O2 Sat by Pulse Oximetry (%) 98 07/23/16 21:00 Constitutional: Yes: No Distress, Calm Cardiovascular: Yes: S1, S2 Respiratory: Yes: Regular, CTA Bilaterally Gastrointestinal: Yes: Normal Bowel Sounds, Soft Musculoskeletal: Yes: WNL Extremities: Yes: WNL Neurological: Yes: Alert, Other Labs: CBC, BMP 07/28/16 06:15 07/28/16 06:15 INR, PTT INR 1.18 (0.82-1.09) H 06/20/16 15:00 Assessment/Plan Problem List - Problems (1) Sepsis Code(s): A41.9 - SEPSIS, UNSPECIFIED ORGANISM Qualifiers: Sepsis type: sepsis due to unspecified organism Qualified Code(s): A41.9 - Sepsis, unspecified organism (2) UTI (urinary tract infection) Code(s): N39.0 - URINARY TRACT INFECTION, SITE NOT SPECIFIED Qualifiers: Urinary tract infection type: acute cystitis Hematuria presence: with hematuria Qualified Code(s): N30.01 - Acute cystitis with hematuria (3) Lactic acid acidosis Code(s): E87.2 - ACIDOSIS (4) Metabolic encephalopathy Code(s): G93.41 - METABOLIC ENCEPHALOPATHY (5) HTN (hypertension) Code(s): I10 - ESSENTIAL (PRIMARY) HYPERTENSION (6) Dementia Code(s): F03.90 - UNSPECIFIED DEMENTIA WITHOUT BEHAVIORAL DISTURBANCE 7 gram positive bacteremia 8 head aches plan continue to monitor patient doing much better again no complaints rest as per primary awaiting placement
--- NOTE | 2016-07-28 20:00 | PN ---
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 (short form) - Note 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: Patient seen and examined. No acute event overnight. Denies chest pain, shortness of breath, palpitation or dizziness. O/E Vital Signs Period Temp Pulse Resp BP Sys/Kerr Pulse Ox Last 24 Hr 97.9 F-99.0 F 75-89 16-20 96-135/60-71 Heart regular Lungs clear Abd soft Ext no edema Current Medications Acetaminophen (Tylenol -) 650 mg PO Q4H PRN PRN Reason: FEVER OR PAIN Last Admin: 07/26/16 16:02 Dose: 650 mg Ascorbic Acid (Vitamin C -) 500 mg PO DAILY [facility] Last Admin: 07/26/16 09:08 Dose: 500 mg Atorvastatin Calcium (Lipitor -) 10 mg PO HS [facility] Last Admin: 07/25/16 21:08 Dose: 10 mg Collagenase (Santyl -) 1 applic TP DAILY [facility] Last Admin: 07/26/16 09:11 Dose: 1 applic Finasteride (Proscar -) 5 mg PO DAILY [facility] Last Admin: 07/26/16 09:08 Dose: 5 mg Gabapentin (Neurontin -) 100 mg PO HS [facility] Last Admin: 07/25/16 21:08 Dose: 100 mg Lactobacillus Acidophilus (Bacid -) 1 tab PO DAILY [facility] Last Admin: 07/26/16 09:08 Dose: 1 tab Lorazepam (Ativan Injection -) 0.5 mg IM DAILY PRN PRN Reason: AGITATION Magnesium Oxide (Mag-Ox -) 400 mg PO BID [facility] Last Admin: 07/26/16 09:08 Dose: 400 mg Neomycin/Polymyxin/Bacitracin (Neosporin Topical Ointment -) 1 applic TP BID [facility] Last Admin: 07/26/16 09:10 Dose: 1 applic Nystatin/Triamcinolone Acetonide (Mycolog Ii Cream -) 1 applic TP BID [facility] Last Admin: 07/26/16 09:09 Dose: 1 applic Pantoprazole Sodium (Protonix -) 40 mg PO DAILY [facility] Last Admin: 07/26/16 09:08 Dose: 40 mg Potassium Chloride (K-Dur -) 20 meq PO DAILY [facility] Last Admin: 07/26/16 09:08 Dose: 20 meq Potassium Phos/Sodium Phos (Phos-Nak Packet -) 1 packet PO BID [facility] Last Admin: 07/26/16 09:11 Dose: 1 packet Quetiapine Fumarate (Seroquel -) 12.5 mg PO BID [facility] Last Admin: 07/26/16 09:08 Dose: 12.5 mg Tamsulosin HCl (Flomax -) 0.4 mg PO HS [facility] Last Admin: 07/25/16 21:08 Dose: 0.4 mg Trazodone HCl (Desyrel -) 37.5 mg PO HS [facility] Last Admin: 07/25/16 21:09 Dose: 37.5 mg CBC, BMP 07/25/16 06:35 07/25/16 06:35 A&P Assessment/Plan Headache Resolved. CT head: Nil acute. Neurology follow up appreciated. Tylenol prn. (1) Sepsis Code(s): A41.9 - SEPSIS, UNSPECIFIED ORGANISM Resolved Qualifiers: Sepsis type: sepsis due to unspecified organism Qualified Code(s): A41.9 - Sepsis, unspecified organism (2) UTI (urinary tract infection) Code(s): N39.0 - URINARY TRACT INFECTION, SITE NOT SPECIFIED Afebrile Qualifiers: Urinary tract infection type: acute cystitis Hematuria presence: with hematuria Qualified Code(s): N30.01 - Acute cystitis with hematuria Resolved (3) Metabolic encephalopathy Code(s): G93.41 - METABOLIC ENCEPHALOPATHY stable (4) HTN (hypertension) Code(s): I10 - ESSENTIAL (PRIMARY) HYPERTENSION Controlled (5) Dementia with behavioral disturbance Code(s): F03.90 - UNSPECIFIED DEMENTIA WITHOUT BEHAVIORAL DISTURBANCE Mostly stable but occasionally restless/anxious. Ativan prn. Fall precautions. 6) Anemia H/H low Anemia work up ordered-pending. 7) S/P Fall No trauma to the head. CT head negative X ray of the knees - No fracture. Fall precautions. Awaiting discharge planning and placement
[2016-07-28] MEDS: ATORVASTATIN CA 10 MG TABLET (FP) PO SCH (22:38)
[2016-07-28] MEDS: traZODone HCL 50 MG TABLET (FP) PO SCH (22:38)
[2016-07-29] MEDS ORDERED: PT OWN MED DRAWER 7, Y5N ONE (08:45)
[2016-07-29] MEDS: QUEtiapine FUMARATE 25 MG TABLET (FP) PO SCH ×2 (09:11→22:30)
[2016-07-29] MEDS: FINASTERIDE 5 MG TABLET (FP) PO SCH (09:11)
[2016-07-29] MEDS: PANTOPRAZOLE 40 MG TABLET (FP) PO SCH (09:11)
[2016-07-29] MEDS: MAGNESIUM OXIDE 400 MG TABLET (FP) PO SCH (09:11)
[2016-07-29] MEDS: LACTOBACILLUS ACIDOPHILUS 1 EACH TAB (FP) PO SCH (09:11)
[2016-07-29] MEDS: ASCORBIC ACID 500 MG TABLET (FP) PO SCH (09:12)
[2016-07-29] MEDS: NAPH,MB-DB/K PH,MBDB POWDER PACKET PO SCH (09:12)
[2016-07-29] MEDS: NYSTATIN/TRIAMCINOLONE TOPICAL CREAM 15 GM TUBE TP SCH ×2 (09:13→22:39)
[2016-07-29] MEDS: POTASSIUM CHLORIDE TABS 20 MEQ TABLET.ER (FP) PO SCH (09:14)
[2016-07-29] MEDS: COLLAGENASE CLOSTRIDIUM HIST. 30 GRAMS TUBE TP SCH (09:14)
[2016-07-29] MEDS: NEOMYCIN/POLYMYXIN/BACITRACIN (TRIPLE ANTIBIOTIC) 28 GM OINTMENT TP SCH ×2 (09:14→22:41)
--- NOTE | 2016-07-29 11:26 | PN ---
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 (short form) - Note 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: s: denies any cp pain, sob dizzy, abd pain o: Vital Signs Period Temp Pulse Resp BP Sys/Kerr Pulse Ox Last 24 Hr 97.3 F-99.0 F 58-77 16-20 84-107/56-65 awake, nad jvd flat, neck supple ctabl, poor effort rrr, nl s1, s2 no mrg ext without e/c/c alert, appropriate no jaundice, diaphoresis Current Medications Generic Name Dose Route Start Last Admin Trade Name Freq PRN Reason Stop Dose Admin Acetaminophen 650 mg 06/12/16 10:27 07/28/16 15:10 Tylenol - PO 650 mg Q4H PRN Administration FEVER OR PAIN Ascorbic Acid 500 mg 06/11/16 10:00 07/29/16 09:12 Vitamin C - PO 500 mg DAILY [facility] Administration Atorvastatin Calcium 10 mg 06/10/16 22:00 07/28/16 22:38 Lipitor - PO 10 mg HS [facility] Administration Collagenase 1 applic 06/11/16 10:00 07/29/16 09:14 Santyl - TP 1 applic DAILY [facility] Administration Finasteride 5 mg 06/11/16 10:00 07/29/16 09:11 Proscar - PO 5 mg DAILY [facility] Administration Gabapentin 100 mg 07/23/16 22:00 07/28/16 22:39 Neurontin - PO 100 mg HS [facility] Administration Lactobacillus Acidophilus 1 tab 06/11/16 10:00 07/29/16 09:11 Bacid - PO 1 tab DAILY [facility] Administration Lorazepam 0.5 mg 07/26/16 16:53 Ativan Injection - IM DAILY PRN AGITATION Magnesium Oxide 400 mg 06/16/16 12:30 07/29/16 09:11 Mag-Ox - PO 400 mg BID [facility] Administration Neomycin/Polymyxin/Bacitracin 1 applic 06/27/16 22:00 07/29/16 09:14 Neosporin Topical Ointment - TP 1 applic BID [facility] Administration Nystatin/Triamcinolone Acetonide 1 applic 06/19/16 22:00 07/29/16 09:13 Mycolog Ii Cream - TP 1 applic BID [facility] Administration Pantoprazole Sodium 40 mg 06/11/16 10:00 07/29/16 09:11 Protonix - PO 40 mg DAILY [facility] Administration Potassium Chloride 20 meq 06/27/16 10:00 07/29/16 09:14 K-Dur - PO 20 meq DAILY [facility] Administration Potassium Phos/Sodium Phos 1 packet 06/16/16 12:30 07/29/16 09:12 Phos-Nak Packet - PO 1 packet BID [facility] Administration Quetiapine Fumarate 12.5 mg 07/14/16 11:00 07/29/16 09:11 Seroquel - PO 12.5 mg BID [facility] Administration Tamsulosin HCl 0.4 mg 06/10/16 22:00 07/28/16 22:38 Flomax - PO 0.4 mg HS [facility] Administration Trazodone HCl 37.5 mg 06/10/16 22:00 07/28/16 22:38 Desyrel - PO 37.5 mg HS [facility] Administration CBC, BMP 07/28/16 06:15 07/28/16 06:15 EKG 06/10 14:46 Poor quality/baseline. Sinus tach with diffuse ST abnormalities. anterior ST sagging. possible inferior q waves. low limb voltages. a/p: 80 yo with h/o htn, bph, advanced dementia who sent to ER for hematuria and noted to have UTI with sepsis complicated by elevated cardiac enzymes. positive trops: - borderline trop elevation with flat trend and low ck index, not consistent with acs, likely related to demand in setting of infection and tachycardia. - started low dose atorvastatin while here - bp too low for bb (attempted here) - not on asa due to hematuria - echo done here this admit was non-diagnostic due to pt agitation/lack of cooperation - no chest pain symptoms, no further cardiac testing for now given his poor functional status/dementia htn - stable, monitor bp off meds for now sepsis/uti/hematuria - resolved, off abx, hgb stable. awaiting placement now, mgm't per pmd/urology/ ID
--- NOTE | 2016-07-29 13:43 | PN ---
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, Physician History of Present Illness: no new issues stable - Current Medication List Current Medications: Active Medications Acetaminophen (Tylenol -) 650 mg PO Q4H PRN PRN Reason: FEVER OR PAIN Last Admin: 07/28/16 15:10 Dose: 650 mg Ascorbic Acid (Vitamin C -) 500 mg PO DAILY [facility] Last Admin: 07/29/16 09:12 Dose: 500 mg Atorvastatin Calcium (Lipitor -) 10 mg PO HS [facility] Last Admin: 07/28/16 22:38 Dose: 10 mg Collagenase (Santyl -) 1 applic TP DAILY [facility] Last Admin: 07/29/16 09:14 Dose: 1 applic Finasteride (Proscar -) 5 mg PO DAILY [facility] Last Admin: 07/29/16 09:11 Dose: 5 mg Gabapentin (Neurontin -) 100 mg PO HS [facility] Last Admin: 07/28/16 22:39 Dose: 100 mg Lactobacillus Acidophilus (Bacid -) 1 tab PO DAILY [facility] Last Admin: 07/29/16 09:11 Dose: 1 tab Lorazepam (Ativan Injection -) 0.5 mg IM DAILY PRN PRN Reason: AGITATION Magnesium Oxide (Mag-Ox -) 400 mg PO BID [facility] Last Admin: 07/29/16 09:11 Dose: 400 mg Neomycin/Polymyxin/Bacitracin (Neosporin Topical Ointment -) 1 applic TP BID [facility] Last Admin: 07/29/16 09:14 Dose: 1 applic Nystatin/Triamcinolone Acetonide (Mycolog Ii Cream -) 1 applic TP BID [facility] Last Admin: 07/29/16 09:13 Dose: 1 applic Pantoprazole Sodium (Protonix -) 40 mg PO DAILY [facility] Last Admin: 07/29/16 09:11 Dose: 40 mg Potassium Chloride (K-Dur -) 20 meq PO DAILY [facility] Last Admin: 07/29/16 09:14 Dose: 20 meq Potassium Phos/Sodium Phos (Phos-Nak Packet -) 1 packet PO BID [facility] Last Admin: 07/29/16 09:12 Dose: 1 packet Quetiapine Fumarate (Seroquel -) 12.5 mg PO BID [facility] Last Admin: 07/29/16 09:11 Dose: 12.5 mg Tamsulosin HCl (Flomax -) 0.4 mg PO HS [facility] Last Admin: 07/28/16 22:38 Dose: 0.4 mg Trazodone HCl (Desyrel -) 37.5 mg PO HS [facility] Last Admin: 07/28/16 22:38 Dose: 37.5 mg - Objective Vital Signs: Vital Signs Temperature 97.3 F L 07/29/16 08:54 Pulse Rate 58 L 07/29/16 08:54 Respiratory Rate 16 07/29/16 09:00 Blood Pressure 104/56 07/29/16 08:54 O2 Sat by Pulse Oximetry (%) 97 07/29/16 09:00 Constitutional: Yes: No Distress, Calm Cardiovascular: Yes: S1, S2 Respiratory: Yes: Regular, CTA Bilaterally Gastrointestinal: Yes: Normal Bowel Sounds, Soft Musculoskeletal: Yes: WNL Extremities: Yes: WNL Neurological: Yes: Alert Psychiatric: Yes: Alert Labs: CBC, BMP 07/28/16 06:15 07/28/16 06:15 INR, PTT INR 1.18 (0.82-1.09) H 06/20/16 15:00 Assessment/Plan Problem List - Problems (1) Sepsis Code(s): A41.9 - SEPSIS, UNSPECIFIED ORGANISM Qualifiers: Sepsis type: sepsis due to unspecified organism Qualified Code(s): A41.9 - Sepsis, unspecified organism (2) UTI (urinary tract infection) Code(s): N39.0 - URINARY TRACT INFECTION, SITE NOT SPECIFIED Qualifiers: Urinary tract infection type: acute cystitis Hematuria presence: with hematuria Qualified Code(s): N30.01 - Acute cystitis with hematuria (3) Lactic acid acidosis Code(s): E87.2 - ACIDOSIS (4) Metabolic encephalopathy Code(s): G93.41 - METABOLIC ENCEPHALOPATHY (5) HTN (hypertension) Code(s): I10 - ESSENTIAL (PRIMARY) HYPERTENSION (6) Dementia Code(s): F03.90 - UNSPECIFIED DEMENTIA WITHOUT BEHAVIORAL DISTURBANCE 7 gram positive bacteremia 8 head aches plan doing better awaiting placement
--- NOTE | 2016-07-29 18:58 | PN ---
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 (short form) - Note 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: Denies chest pain, shortness of breath, palpitation or dizziness. O/E Vital Signs Period Temp Pulse Resp BP Sys/Kerr Pulse Ox Last 24 Hr 97.3 F-98.8 F 58-97 16-20 84-143/56-73 97 Heart regular Lungs clear Abd soft Ext no edema Current Medications Acetaminophen (Tylenol -) 650 mg PO Q4H PRN PRN Reason: FEVER OR PAIN Last Admin: 07/26/16 16:02 Dose: 650 mg Ascorbic Acid (Vitamin C -) 500 mg PO DAILY [facility] Last Admin: 07/26/16 09:08 Dose: 500 mg Atorvastatin Calcium (Lipitor -) 10 mg PO HS [facility] Last Admin: 07/25/16 21:08 Dose: 10 mg Collagenase (Santyl -) 1 applic TP DAILY [facility] Last Admin: 07/26/16 09:11 Dose: 1 applic Finasteride (Proscar -) 5 mg PO DAILY [facility] Last Admin: 07/26/16 09:08 Dose: 5 mg Gabapentin (Neurontin -) 100 mg PO HS [facility] Last Admin: 07/25/16 21:08 Dose: 100 mg Lactobacillus Acidophilus (Bacid -) 1 tab PO DAILY [facility] Last Admin: 07/26/16 09:08 Dose: 1 tab Lorazepam (Ativan Injection -) 0.5 mg IM DAILY PRN PRN Reason: AGITATION Magnesium Oxide (Mag-Ox -) 400 mg PO BID [facility] Last Admin: 07/26/16 09:08 Dose: 400 mg Neomycin/Polymyxin/Bacitracin (Neosporin Topical Ointment -) 1 applic TP BID [facility] Last Admin: 07/26/16 09:10 Dose: 1 applic Nystatin/Triamcinolone Acetonide (Mycolog Ii Cream -) 1 applic TP BID [facility] Last Admin: 07/26/16 09:09 Dose: 1 applic Pantoprazole Sodium (Protonix -) 40 mg PO DAILY [facility] Last Admin: 07/26/16 09:08 Dose: 40 mg Potassium Chloride (K-Dur -) 20 meq PO DAILY [facility] Last Admin: 07/26/16 09:08 Dose: 20 meq Potassium Phos/Sodium Phos (Phos-Nak Packet -) 1 packet PO BID [facility] Last Admin: 07/26/16 09:11 Dose: 1 packet Quetiapine Fumarate (Seroquel -) 12.5 mg PO BID [facility] Last Admin: 07/26/16 09:08 Dose: 12.5 mg Tamsulosin HCl (Flomax -) 0.4 mg PO HS [facility] Last Admin: 07/25/16 21:08 Dose: 0.4 mg Trazodone HCl (Desyrel -) 37.5 mg PO HS [facility] Last Admin: 07/25/16 21:09 Dose: 37.5 mg CBC, BMP 07/28/16 06:15 07/28/16 06:15 A&P Assessment/Plan Headache Resolved. CT head: Nil acute. Neurology follow up appreciated. Tylenol prn. (1) Sepsis Code(s): A41.9 - SEPSIS, UNSPECIFIED ORGANISM Resolved Qualifiers: Sepsis type: sepsis due to unspecified organism Qualified Code(s): A41.9 - Sepsis, unspecified organism (2) UTI (urinary tract infection) Code(s): N39.0 - URINARY TRACT INFECTION, SITE NOT SPECIFIED Afebrile Qualifiers: Urinary tract infection type: acute cystitis Hematuria presence: with hematuria Qualified Code(s): N30.01 - Acute cystitis with hematuria Resolved (3) Metabolic encephalopathy Code(s): G93.41 - METABOLIC ENCEPHALOPATHY stable (4) HTN (hypertension) Code(s): I10 - ESSENTIAL (PRIMARY) HYPERTENSION Controlled (5) Dementia with behavioral disturbance Code(s): F03.90 - UNSPECIFIED DEMENTIA WITHOUT BEHAVIORAL DISTURBANCE Mostly stable but occasionally restless/anxious. Ativan prn. Fall precautions. 6) Anemia H/H low Anemia work up ordered-pending. 7) S/P Fall No trauma to the head. CT head negative X ray of the knees - No fracture. Fall precautions. Awaiting discharge planning and placement
[2016-07-29] MEDS: ATORVASTATIN CA 10 MG TABLET (FP) PO SCH (22:28)
[2016-07-29] MEDS: TAMSULOSIN HCL 0.4 MG CAP.ER.24H (FP) PO SCH (22:28)
[2016-07-29] MEDS: traZODone HCL 50 MG TABLET (FP) PO SCH (22:29)
[2016-07-29] MEDS: GABAPENTIN 100 MG CAPSULE (FP) PO SCH (22:30)
[2016-07-30] MEDS ORDERED: PT OWN MED DRAWER 7, Y5N ONE (09:59)
[2016-07-30] MEDS: FINASTERIDE 5 MG TABLET (FP) PO SCH (10:03)
[2016-07-30] MEDS: PANTOPRAZOLE 40 MG TABLET (FP) PO SCH (10:03)
[2016-07-30] MEDS: QUEtiapine FUMARATE 25 MG TABLET (FP) PO SCH ×2 (10:03→21:59)
[2016-07-30] MEDS: LACTOBACILLUS ACIDOPHILUS 1 EACH TAB (FP) PO SCH (10:03)
[2016-07-30] MEDS: POTASSIUM CHLORIDE TABS 20 MEQ TABLET.ER (FP) PO SCH (10:03)
[2016-07-30] MEDS: ASCORBIC ACID 500 MG TABLET (FP) PO SCH (10:04)
[2016-07-30] MEDS: NYSTATIN/TRIAMCINOLONE TOPICAL CREAM 15 GM TUBE TP SCH ×2 (10:04→22:02)
[2016-07-30] MEDS: NEOMYCIN/POLYMYXIN/BACITRACIN (TRIPLE ANTIBIOTIC) 28 GM OINTMENT TP SCH ×2 (10:05→22:03)
[2016-07-30] MEDS: COLLAGENASE CLOSTRIDIUM HIST. 30 GRAMS TUBE TP SCH (10:05)
--- NOTE | 2016-07-30 11:13 | PN ---
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 (short form) - Note 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: s: alert, sitting up eating breakfast, denies any cp pain, sob dizzy, abd pain o: Vital Signs Period Temp Pulse Resp BP Sys/Kerr Pulse Ox Last 24 Hr 98.4 F-98.8 F 72-97 18-20 98-143/62-73 97 awake, nad jvd flat, neck supple ctabl, poor effort rrr, nl s1, s2 no mrg ext without e/c/c alert, appropriate no jaundice, diaphoresis Current Medications Generic Name Dose Route Start Last Admin Trade Name Freq PRN Reason Stop Dose Admin Acetaminophen 650 mg 06/12/16 10:27 07/28/16 15:10 Tylenol - PO 650 mg Q4H PRN Administration FEVER OR PAIN Ascorbic Acid 500 mg 06/11/16 10:00 07/30/16 10:04 Vitamin C - PO 500 mg DAILY [facility] Administration Atorvastatin Calcium 10 mg 06/10/16 22:00 07/29/16 22:28 Lipitor - PO 10 mg HS [facility] Administration Collagenase 1 applic 06/11/16 10:00 07/30/16 10:05 Santyl - TP 1 applic DAILY [facility] Administration Finasteride 5 mg 06/11/16 10:00 07/30/16 10:03 Proscar - PO 5 mg DAILY [facility] Administration Gabapentin 100 mg 07/23/16 22:00 07/29/16 22:30 Neurontin - PO 100 mg HS [facility] Administration Lactobacillus Acidophilus 1 tab 06/11/16 10:00 07/30/16 10:03 Bacid - PO 1 tab DAILY [facility] Administration Neomycin/Polymyxin/Bacitracin 1 applic 06/27/16 22:00 07/30/16 10:05 Neosporin Topical Ointment - TP 1 applic BID [facility] Administration Nystatin/Triamcinolone Acetonide 1 applic 06/19/16 22:00 07/30/16 10:04 Mycolog Ii Cream - TP 1 applic BID [facility] Administration Pantoprazole Sodium 40 mg 06/11/16 10:00 07/30/16 10:03 Protonix - PO 40 mg DAILY [facility] Administration Potassium Chloride 20 meq 06/27/16 10:00 07/30/16 10:03 K-Dur - PO 20 meq DAILY [facility] Administration Quetiapine Fumarate 12.5 mg 07/14/16 11:00 07/30/16 10:03 Seroquel - PO 12.5 mg BID [facility] Administration Tamsulosin HCl 0.4 mg 06/10/16 22:00 07/29/16 22:28 Flomax - PO 0.4 mg HS [facility] Administration Trazodone HCl 37.5 mg 06/10/16 22:00 07/29/16 22:29 Desyrel - PO 37.5 mg HS [facility] Administration Laboratory Last Values WBC 8.3 K/mm3 (4.0-10.0) D 07/28/16 06:15 RBC 3.95 M/mm3 (4.00-5.60) L 07/28/16 06:15 Hgb 10.8 GM/dL (11.7-16.9) L D 07/28/16 06:15 Hct 33.5 % (35.4-49) L 07/28/16 06:15 MCV 84.9 fl (80-96) 07/28/16 06:15 MCHC 32.3 g/dl (32.0-35.9) 07/28/16 06:15 RDW 17.1 % (11.9-15.9) H 07/28/16 06:15 Plt Count 244 K/MM3 (134-434) D 07/28/16 06:15 MPV 8.9 fl (7.5-11.1) 07/28/16 06:15 Neutrophils % 54.5 % (42.8-82.8) 07/25/16 06:35 Lymphocytes % 32.5 % (8-40) D 07/25/16 06:35 Monocytes % 9.3 % (3.8-10.2) 07/25/16 06:35 Eosinophils % 3.1 % (0-4.5) 07/25/16 06:35 Basophils % 0.6 % (0-2.0) 07/25/16 06:35 INR 1.18 (0.82-1.09) H 06/20/16 15:00 PTT (Actin FS) 32.1 SECONDS (26.9-34.4) 06/20/16 15:00 VBG pH 7.41 (7.32-7.42) 06/10/16 09:52 POC VBG pCO2 37.8 mmHg (38-52) L 06/10/16 09:52 POC VBG pO2 22.7 mmHg (28-48) L 06/10/16 09:52 Mixed VBG HCO3 23.7 meq/L (19-25) 06/10/16 09:52 Sodium 137 mmol/L (136-145) 07/28/16 06:15 Potassium 4.6 mmol/L (3.5-5.1) 07/28/16 06:15 Chloride 103 mmol/L (98-107) 07/28/16 06:15 Carbon Dioxide 27 mmol/L (21-32) 07/28/16 06:15 Anion Gap 7 (8-16) L 07/28/16 06:15 BUN 27 mg/dL (7-18) H 07/28/16 06:15 Creatinine 0.7 mg/dL (0.7-1.3) 07/28/16 06:15 Creat Clearance w eGFR > 60 (>60) 07/28/16 06:15 POC Glucometer 77 UNITS (()) 06/20/16 12:21 Random Glucose 73 mg/dL (74-106) L 07/28/16 06:15 Lactic Acid 1.370 mmol/L (0.4-2.0) 06/11/16 05:35 Phosphorus 3.4 mg/dL (2.5-4.9) D 07/01/16 06:00 Calcium 9.1 mg/dL (8.5-10.1) 07/28/16 06:15 Magnesium 2.0 mg/dL (1.8-2.4) 07/01/16 06:00 Iron 20 ug/dL (38-169) L 07/26/16 06:30 TIBC 262 ug/dL (250-450) 07/26/16 06:30 Iron Saturation 8 % (15-55) L 07/26/16 06:30 Ferritin 21.438 ng/ml (16.4-293.9) 07/26/16 06:30 Total Bilirubin 0.8 mg/dL (0.2-1.0) 07/28/16 06:15 AST 38 U/L (15-37) H D 07/28/16 06:15 ALT 27 U/L (12-78) D 07/28/16 06:15 Alkaline Phosphatase 75 U/L (45-117) 07/28/16 06:15 Creatine Kinase 282 IU/L (39-308) D 06/11/16 05:35 Creatine Kinase Index 1.8 % (0.0-5.0) 06/11/16 05:35 CK-MB (CK-2) 5.158 ng/ml (0.5-3.6) H 06/11/16 05:35 CK-MB (CK-2) Rel Index Cancelled 06/10/16 10:13 Troponin I 0.07 ng/ml (0.00-0.05) H 06/11/16 05:35 Total Protein 6.4 g/dl (6.4-8.2) D 07/28/16 06:15 Albumin 2.9 g/dl (3.4-5.0) L D 07/28/16 06:15 Vitamin B12 759 pg/ml (180-914) 07/25/16 06:35 Serum Folate 17 ng/ml (3.1-17.5) 07/25/16 06:35 TSH 2.28 uIU/ml (0.358-3.74) 07/26/16 06:30 Urine Color Brown 06/10/16 10:13 Urine Appearance Cloudy 06/10/16 10:13 Urine pH 6.0 (5.0-8.0) 06/10/16 10:13 Ur Specific [place] 1.020 (1.001-1.035) 06/10/16 10:13 Urine Protein 2+ (NEGATIVE) H 06/10/16 10:13 Urine Glucose (UA) Negative (NEGATIVE) 06/10/16 10:13 Urine Ketones 1+ (NEGATIVE) H 06/10/16 10:13 Urine Blood 3+ (NEGATIVE) H 06/10/16 10:13 Urine Nitrite Negative (NEGATIVE) 06/10/16 10:13 Urine Bilirubin Negative (NEGATIVE) 06/10/16 10:13 Urine Urobilinogen Negative E.U./dl (0.2-1.0) 06/10/16 10:13 Ur Leukocyte Esterase 2+ (NEGATIVE) H 06/10/16 10:13 Urine RBC 4125 /hpf (0-3) 06/10/16 10:13 Urine WBC 675 /hpf (3-5) 06/10/16 10:13 Blood Type B POSITIVE 06/10/16 10:13 Antibody Screen Negative 06/10/16 10:13 EKG 06/10 14:46 Poor quality/baseline. Sinus tach with diffuse ST abnormalities. anterior ST sagging. possible inferior q waves. low limb voltages. a/p: 80 yo with h/o htn, bph, advanced dementia who sent to ER for hematuria and noted to have UTI with sepsis complicated by elevated cardiac enzymes. positive trops: - borderline trop elevation with flat trend and low ck index, not consistent with acs, likely related to demand in setting of infection and tachycardia. - started low dose atorvastatin while here - bp too low for bb (attempted here) - not on asa due to hematuria - echo done here this admit was non-diagnostic due to pt agitation/lack of cooperation - no chest pain symptoms, no further cardiac testing for now given his poor functional status/dementia htn - stable/low side, monitor bp off meds sepsis/uti/hematuria - resolved, off abx, hgb stable. awaiting placement now, mgm't per pmd/urology/ ID
--- NOTE | 2016-07-30 14:13 | PN ---
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, Physician History of Present Illness: patient stable no new events calm lying in bed - Current Medication List Current Medications: Active Medications Acetaminophen (Tylenol -) 650 mg PO Q4H PRN PRN Reason: FEVER OR PAIN Last Admin: 07/28/16 15:10 Dose: 650 mg Ascorbic Acid (Vitamin C -) 500 mg PO DAILY [facility] Last Admin: 07/30/16 10:04 Dose: 500 mg Atorvastatin Calcium (Lipitor -) 10 mg PO HS [facility] Last Admin: 07/29/16 22:28 Dose: 10 mg Collagenase (Santyl -) 1 applic TP DAILY [facility] Last Admin: 07/30/16 10:05 Dose: 1 applic Finasteride (Proscar -) 5 mg PO DAILY [facility] Last Admin: 07/30/16 10:03 Dose: 5 mg Gabapentin (Neurontin -) 100 mg PO HS [facility] Last Admin: 07/29/16 22:30 Dose: 100 mg Lactobacillus Acidophilus (Bacid -) 1 tab PO DAILY [facility] Last Admin: 07/30/16 10:03 Dose: 1 tab Neomycin/Polymyxin/Bacitracin (Neosporin Topical Ointment -) 1 applic TP BID [facility] Last Admin: 07/30/16 10:05 Dose: 1 applic Nystatin/Triamcinolone Acetonide (Mycolog Ii Cream -) 1 applic TP BID [facility] Last Admin: 07/30/16 10:04 Dose: 1 applic Pantoprazole Sodium (Protonix -) 40 mg PO DAILY [facility] Last Admin: 07/30/16 10:03 Dose: 40 mg Potassium Chloride (K-Dur -) 20 meq PO DAILY [facility] Last Admin: 07/30/16 10:03 Dose: 20 meq Quetiapine Fumarate (Seroquel -) 12.5 mg PO BID [facility] Last Admin: 07/30/16 10:03 Dose: 12.5 mg Tamsulosin HCl (Flomax -) 0.4 mg PO HS [facility] Last Admin: 07/29/16 22:28 Dose: 0.4 mg Trazodone HCl (Desyrel -) 37.5 mg PO HS [facility] Last Admin: 07/29/16 22:29 Dose: 37.5 mg - Objective Vital Signs: Vital Signs Temperature 98 F 07/30/16 08:30 Pulse Rate 61 07/30/16 09:55 Respiratory Rate 18 07/30/16 08:30 Blood Pressure 120/68 07/30/16 09:55 O2 Sat by Pulse Oximetry (%) 97 07/29/16 21:00 Constitutional: Yes: No Distress, Calm Cardiovascular: Yes: S1, S2 Respiratory: Yes: Regular, CTA Bilaterally Gastrointestinal: Yes: Normal Bowel Sounds, Soft Musculoskeletal: Yes: WNL Extremities: Yes: WNL Neurological: Yes: Alert Psychiatric: Yes: Alert Labs: CBC, BMP 07/28/16 06:15 07/28/16 06:15 INR, PTT INR 1.18 (0.82-1.09) H 06/20/16 15:00 Assessment/Plan Problem List - Problems (1) Sepsis Code(s): A41.9 - SEPSIS, UNSPECIFIED ORGANISM Qualifiers: Sepsis type: sepsis due to unspecified organism Qualified Code(s): A41.9 - Sepsis, unspecified organism (2) UTI (urinary tract infection) Code(s): N39.0 - URINARY TRACT INFECTION, SITE NOT SPECIFIED Qualifiers: Urinary tract infection type: acute cystitis Hematuria presence: with hematuria Qualified Code(s): N30.01 - Acute cystitis with hematuria (3) Lactic acid acidosis Code(s): E87.2 - ACIDOSIS (4) Metabolic encephalopathy Code(s): G93.41 - METABOLIC ENCEPHALOPATHY (5) HTN (hypertension) Code(s): I10 - ESSENTIAL (PRIMARY) HYPERTENSION (6) Dementia Code(s): F03.90 - UNSPECIFIED DEMENTIA WITHOUT BEHAVIORAL DISTURBANCE 7 gram positive bacteremia 8 head aches plan doing better awaiting placement
--- NOTE | 2016-07-30 18:34 | PN ---
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 (short form) - Note 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: No acute event overnight. Denies chest pain, shortness of breath, palpitation or dizziness. O/E Vital Signs Period Temp Pulse Resp BP Sys/Kerr Pulse Ox Last 24 Hr 98 F-98.7 F 58-94 18-20 95-128/51-77 97 Heart regular Lungs clear Abd soft Ext no edema Current Medications Acetaminophen (Tylenol -) 650 mg PO Q4H PRN PRN Reason: FEVER OR PAIN Last Admin: 07/26/16 16:02 Dose: 650 mg Ascorbic Acid (Vitamin C -) 500 mg PO DAILY [facility] Last Admin: 07/26/16 09:08 Dose: 500 mg Atorvastatin Calcium (Lipitor -) 10 mg PO HS [facility] Last Admin: 07/25/16 21:08 Dose: 10 mg Collagenase (Santyl -) 1 applic TP DAILY [facility] Last Admin: 07/26/16 09:11 Dose: 1 applic Finasteride (Proscar -) 5 mg PO DAILY [facility] Last Admin: 07/26/16 09:08 Dose: 5 mg Gabapentin (Neurontin -) 100 mg PO HS [facility] Last Admin: 07/25/16 21:08 Dose: 100 mg Lactobacillus Acidophilus (Bacid -) 1 tab PO DAILY [facility] Last Admin: 07/26/16 09:08 Dose: 1 tab Lorazepam (Ativan Injection -) 0.5 mg IM DAILY PRN PRN Reason: AGITATION Magnesium Oxide (Mag-Ox -) 400 mg PO BID [facility] Last Admin: 07/26/16 09:08 Dose: 400 mg Neomycin/Polymyxin/Bacitracin (Neosporin Topical Ointment -) 1 applic TP BID [facility] Last Admin: 07/26/16 09:10 Dose: 1 applic Nystatin/Triamcinolone Acetonide (Mycolog Ii Cream -) 1 applic TP BID [facility] Last Admin: 07/26/16 09:09 Dose: 1 applic Pantoprazole Sodium (Protonix -) 40 mg PO DAILY [facility] Last Admin: 07/26/16 09:08 Dose: 40 mg Potassium Chloride (K-Dur -) 20 meq PO DAILY [facility] Last Admin: 07/26/16 09:08 Dose: 20 meq Potassium Phos/Sodium Phos (Phos-Nak Packet -) 1 packet PO BID [facility] Last Admin: 07/26/16 09:11 Dose: 1 packet Quetiapine Fumarate (Seroquel -) 12.5 mg PO BID [facility] Last Admin: 07/26/16 09:08 Dose: 12.5 mg Tamsulosin HCl (Flomax -) 0.4 mg PO HS [facility] Last Admin: 07/25/16 21:08 Dose: 0.4 mg Trazodone HCl (Desyrel -) 37.5 mg PO HS [facility] Last Admin: 07/25/16 21:09 Dose: 37.5 mg CBC, BMP 07/28/16 06:15 07/28/16 06:15 A&P Assessment/Plan Headache Resolved. CT head: Nil acute. Neurology follow up appreciated. Tylenol prn. (1) Sepsis Code(s): A41.9 - SEPSIS, UNSPECIFIED ORGANISM Resolved Qualifiers: Sepsis type: sepsis due to unspecified organism Qualified Code(s): A41.9 - Sepsis, unspecified organism (2) UTI (urinary tract infection) Code(s): N39.0 - URINARY TRACT INFECTION, SITE NOT SPECIFIED Afebrile Qualifiers: Urinary tract infection type: acute cystitis Hematuria presence: with hematuria Qualified Code(s): N30.01 - Acute cystitis with hematuria Resolved (3) Metabolic encephalopathy Code(s): G93.41 - METABOLIC ENCEPHALOPATHY stable (4) HTN (hypertension) Code(s): I10 - ESSENTIAL (PRIMARY) HYPERTENSION Controlled (5) Dementia with behavioral disturbance Code(s): F03.90 - UNSPECIFIED DEMENTIA WITHOUT BEHAVIORAL DISTURBANCE Mostly stable but occasionally restless/anxious. Ativan prn. Fall precautions. 6) Anemia H/H low Anemia work up ordered-pending. 7) S/P Fall No trauma to the head. CT head negative X ray of the knees - No fracture. Fall precautions. Awaiting discharge planning and placement
[2016-07-30] MEDS: ACETAMINOPHEN 325 MG TABLET (FP) PO PRN (19:29)
[2016-07-30] MEDS: GABAPENTIN 100 MG CAPSULE (FP) PO SCH (22:00)
[2016-07-30] MEDS: TAMSULOSIN HCL 0.4 MG CAP.ER.24H (FP) PO SCH (22:00)
[2016-07-30] MEDS: ATORVASTATIN CA 10 MG TABLET (FP) PO SCH (22:00)
[2016-07-30] MEDS: traZODone HCL 50 MG TABLET (FP) PO SCH (22:01)
[2016-07-31] MEDS: QUEtiapine FUMARATE 25 MG TABLET (FP) PO SCH ×2 (09:38→21:32)
[2016-07-31] MEDS: PANTOPRAZOLE 40 MG TABLET (FP) PO SCH (09:38)
[2016-07-31] MEDS: ASCORBIC ACID 500 MG TABLET (FP) PO SCH (09:38)
[2016-07-31] MEDS: POTASSIUM CHLORIDE TABS 20 MEQ TABLET.ER (FP) PO SCH (09:39)
[2016-07-31] MEDS: FINASTERIDE 5 MG TABLET (FP) PO SCH (09:39)
[2016-07-31] MEDS: LACTOBACILLUS ACIDOPHILUS 1 EACH TAB (FP) PO SCH (09:39)
[2016-07-31] MEDS: COLLAGENASE CLOSTRIDIUM HIST. 30 GRAMS TUBE TP SCH (09:40)
[2016-07-31] MEDS: NEOMYCIN/POLYMYXIN/BACITRACIN (TRIPLE ANTIBIOTIC) 28 GM OINTMENT TP SCH (09:40)
[2016-07-31] MEDS: NYSTATIN/TRIAMCINOLONE TOPICAL CREAM 15 GM TUBE TP SCH (09:40)
--- NOTE | 2016-07-31 11:41 | PN ---
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 (short form) - Note 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: s: alert, denies any cp pain, sob dizzy, abd pain o: Vital Signs Period Temp Pulse Resp BP Sys/Kerr Pulse Ox Last 24 Hr 98.5 F-98.9 F 57-73 16-20 95-137/51-77 97-97 awake, nad jvd flat, neck supple ctabl, nl effort rrr, nl s1, s2 no mrg ext without e/c/c alert, appropriate no jaundice, diaphoresis Current Medications Generic Name Dose Route Start Last Admin Trade Name Freq PRN Reason Stop Dose Admin Acetaminophen 650 mg 06/12/16 10:27 07/30/16 19:29 Tylenol - PO 650 mg Q4H PRN Administration FEVER OR PAIN Ascorbic Acid 500 mg 06/11/16 10:00 07/31/16 09:38 Vitamin C - PO 500 mg DAILY [facility] Administration Atorvastatin Calcium 10 mg 06/10/16 22:00 07/30/16 22:00 Lipitor - PO 10 mg HS [facility] Administration Collagenase 1 applic 06/11/16 10:00 07/31/16 09:40 Santyl - TP 1 applic DAILY [facility] Administration Finasteride 5 mg 06/11/16 10:00 07/31/16 09:39 Proscar - PO 5 mg DAILY [facility] Administration Gabapentin 100 mg 07/23/16 22:00 07/30/16 22:00 Neurontin - PO 100 mg HS [facility] Administration Lactobacillus Acidophilus 1 tab 06/11/16 10:00 07/31/16 09:39 Bacid - PO 1 tab DAILY [facility] Administration Neomycin/Polymyxin/Bacitracin 1 applic 06/27/16 22:00 07/31/16 09:40 Neosporin Topical Ointment - TP 1 applic BID [facility] Administration Nystatin/Triamcinolone Acetonide 1 applic 06/19/16 22:00 07/31/16 09:40 Mycolog Ii Cream - TP 1 applic BID [facility] Administration Pantoprazole Sodium 40 mg 06/11/16 10:00 07/31/16 09:38 Protonix - PO 40 mg DAILY [facility] Administration Potassium Chloride 20 meq 06/27/16 10:00 07/31/16 09:39 K-Dur - PO 20 meq DAILY [facility] Administration Quetiapine Fumarate 12.5 mg 07/14/16 11:00 07/31/16 09:38 Seroquel - PO 12.5 mg BID [facility] Administration Tamsulosin HCl 0.4 mg 06/10/16 22:00 07/30/16 22:00 Flomax - PO 0.4 mg HS [facility] Administration Trazodone HCl 37.5 mg 06/10/16 22:00 07/30/16 22:01 Desyrel - PO 37.5 mg HS [facility] Administration CBC, BMP 07/28/16 06:15 07/28/16 06:15 EKG 06/10 14:46 Poor quality/baseline. Sinus tach with diffuse ST abnormalities. anterior ST sagging. possible inferior q waves. low limb voltages. a/p: 80 yo with h/o htn, bph, advanced dementia who sent to ER for hematuria and noted to have UTI with sepsis complicated by elevated cardiac enzymes. positive trops: - borderline trop elevation with flat trend and low ck index, not consistent with acs, likely related to demand in setting of infection and tachycardia. - started low dose atorvastatin while here - bp too low for bb (attempted here) - not on asa due to hematuria - echo done here this admit was non-diagnostic due to pt agitation/lack of cooperation - no chest pain symptoms, no further cardiac testing for now given his poor functional status/dementia htn - stable/low side, monitor bp off meds sepsis/uti/hematuria - resolved, off abx, hgb stable. social issues have delayed placement.
--- NOTE | 2016-07-31 14:21 | PN ---
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, Physician History of Present Illness: patient is stable no issues calm no complaints - Current Medication List Current Medications: Active Medications Acetaminophen (Tylenol -) 650 mg PO Q4H PRN PRN Reason: FEVER OR PAIN Last Admin: 07/30/16 19:29 Dose: 650 mg Ascorbic Acid (Vitamin C -) 500 mg PO DAILY [facility] Last Admin: 07/31/16 09:38 Dose: 500 mg Atorvastatin Calcium (Lipitor -) 10 mg PO HS [facility] Last Admin: 07/30/16 22:00 Dose: 10 mg Collagenase (Santyl -) 1 applic TP DAILY [facility] Last Admin: 07/31/16 09:40 Dose: 1 applic Finasteride (Proscar -) 5 mg PO DAILY [facility] Last Admin: 07/31/16 09:39 Dose: 5 mg Gabapentin (Neurontin -) 100 mg PO HS [facility] Last Admin: 07/30/16 22:00 Dose: 100 mg Lactobacillus Acidophilus (Bacid -) 1 tab PO DAILY [facility] Last Admin: 07/31/16 09:39 Dose: 1 tab Neomycin/Polymyxin/Bacitracin (Neosporin Topical Ointment -) 1 applic TP BID [facility] Last Admin: 07/31/16 09:40 Dose: 1 applic Nystatin/Triamcinolone Acetonide (Mycolog Ii Cream -) 1 applic TP BID [facility] Last Admin: 07/31/16 09:40 Dose: 1 applic Pantoprazole Sodium (Protonix -) 40 mg PO DAILY [facility] Last Admin: 07/31/16 09:38 Dose: 40 mg Potassium Chloride (K-Dur -) 20 meq PO DAILY [facility] Last Admin: 07/31/16 09:39 Dose: 20 meq Quetiapine Fumarate (Seroquel -) 12.5 mg PO BID [facility] Last Admin: 07/31/16 09:38 Dose: 12.5 mg Tamsulosin HCl (Flomax -) 0.4 mg PO HS [facility] Last Admin: 07/30/16 22:00 Dose: 0.4 mg Trazodone HCl (Desyrel -) 37.5 mg PO HS [facility] Last Admin: 07/30/16 22:01 Dose: 37.5 mg - Objective Vital Signs: Vital Signs Temperature 98.9 F 07/31/16 10:00 Pulse Rate 62 07/31/16 10:00 Respiratory Rate 16 07/31/16 10:00 Blood Pressure 118/66 07/31/16 10:00 O2 Sat by Pulse Oximetry (%) 97 07/31/16 09:00 Constitutional: Yes: No Distress, Calm Cardiovascular: Yes: S1, S2 Respiratory: Yes: Regular, CTA Bilaterally Gastrointestinal: Yes: Normal Bowel Sounds, Soft Musculoskeletal: Yes: WNL Extremities: Yes: WNL Neurological: Yes: Alert, Other Psychiatric: Yes: Alert, Other Labs: CBC, BMP 07/28/16 06:15 07/28/16 06:15 INR, PTT INR 1.18 (0.82-1.09) H 06/20/16 15:00 Assessment/Plan Problem List - Problems (1) Sepsis Code(s): A41.9 - SEPSIS, UNSPECIFIED ORGANISM Qualifiers: Sepsis type: sepsis due to unspecified organism Qualified Code(s): A41.9 - Sepsis, unspecified organism (2) UTI (urinary tract infection) Code(s): N39.0 - URINARY TRACT INFECTION, SITE NOT SPECIFIED Qualifiers: Urinary tract infection type: acute cystitis Hematuria presence: with hematuria Qualified Code(s): N30.01 - Acute cystitis with hematuria (3) Lactic acid acidosis Code(s): E87.2 - ACIDOSIS (4) Metabolic encephalopathy Code(s): G93.41 - METABOLIC ENCEPHALOPATHY (5) HTN (hypertension) Code(s): I10 - ESSENTIAL (PRIMARY) HYPERTENSION (6) Dementia Code(s): F03.90 - UNSPECIFIED DEMENTIA WITHOUT BEHAVIORAL DISTURBANCE 7 gram positive bacteremia 8 head aches plan doing better awaiting placement no complaints says he is comfortable bp on the lower side cardio on case
--- NOTE | 2016-07-31 17:32 | PN ---
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 (short form) - Note 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: Responds to verbal commands. Ambulating well. No falls reported. Denies chest pain, shortness of breath, palpitation or dizziness. O/E Vital Signs Period Temp Pulse Resp BP Sys/Kerr Pulse Ox Last 24 Hr 97.7 F-98.9 F 57-70 16-20 118-138/51-76 97-97 Heart regular Lungs clear Abd soft Ext no edema Current Medications Acetaminophen (Tylenol -) 650 mg PO Q4H PRN PRN Reason: FEVER OR PAIN Last Admin: 07/26/16 16:02 Dose: 650 mg Ascorbic Acid (Vitamin C -) 500 mg PO DAILY [facility] Last Admin: 07/26/16 09:08 Dose: 500 mg Atorvastatin Calcium (Lipitor -) 10 mg PO HS [facility] Last Admin: 07/25/16 21:08 Dose: 10 mg Collagenase (Santyl -) 1 applic TP DAILY [facility] Last Admin: 07/26/16 09:11 Dose: 1 applic Finasteride (Proscar -) 5 mg PO DAILY [facility] Last Admin: 07/26/16 09:08 Dose: 5 mg Gabapentin (Neurontin -) 100 mg PO HS [facility] Last Admin: 07/25/16 21:08 Dose: 100 mg Lactobacillus Acidophilus (Bacid -) 1 tab PO DAILY [facility] Last Admin: 07/26/16 09:08 Dose: 1 tab Lorazepam (Ativan Injection -) 0.5 mg IM DAILY PRN PRN Reason: AGITATION Magnesium Oxide (Mag-Ox -) 400 mg PO BID [facility] Last Admin: 07/26/16 09:08 Dose: 400 mg Neomycin/Polymyxin/Bacitracin (Neosporin Topical Ointment -) 1 applic TP BID [facility] Last Admin: 07/26/16 09:10 Dose: 1 applic Nystatin/Triamcinolone Acetonide (Mycolog Ii Cream -) 1 applic TP BID [facility] Last Admin: 07/26/16 09:09 Dose: 1 applic Pantoprazole Sodium (Protonix -) 40 mg PO DAILY [facility] Last Admin: 07/26/16 09:08 Dose: 40 mg Potassium Chloride (K-Dur -) 20 meq PO DAILY [facility] Last Admin: 07/26/16 09:08 Dose: 20 meq Potassium Phos/Sodium Phos (Phos-Nak Packet -) 1 packet PO BID [facility] Last Admin: 07/26/16 09:11 Dose: 1 packet Quetiapine Fumarate (Seroquel -) 12.5 mg PO BID [facility] Last Admin: 07/26/16 09:08 Dose: 12.5 mg Tamsulosin HCl (Flomax -) 0.4 mg PO HS [facility] Last Admin: 07/25/16 21:08 Dose: 0.4 mg Trazodone HCl (Desyrel -) 37.5 mg PO HS [facility] Last Admin: 07/25/16 21:09 Dose: 37.5 mg CBC, BMP 07/28/16 06:15 07/28/16 06:15 A&P Assessment/Plan Headache Resolved. CT head: Nil acute. Neurology follow up appreciated. Tylenol prn. (1) Sepsis Code(s): A41.9 - SEPSIS, UNSPECIFIED ORGANISM Resolved Qualifiers: Sepsis type: sepsis due to unspecified organism Qualified Code(s): A41.9 - Sepsis, unspecified organism (2) UTI (urinary tract infection) Code(s): N39.0 - URINARY TRACT INFECTION, SITE NOT SPECIFIED Afebrile Qualifiers: Urinary tract infection type: acute cystitis Hematuria presence: with hematuria Qualified Code(s): N30.01 - Acute cystitis with hematuria Resolved (3) Metabolic encephalopathy Code(s): G93.41 - METABOLIC ENCEPHALOPATHY stable (4) HTN (hypertension) Code(s): I10 - ESSENTIAL (PRIMARY) HYPERTENSION Controlled (5) Dementia with behavioral disturbance Code(s): F03.90 - UNSPECIFIED DEMENTIA WITHOUT BEHAVIORAL DISTURBANCE Mostly stable but occasionally restless/anxious. Ativan prn. Fall precautions. 6) Anemia H/H low Anemia work up ordered-pending. 7) S/P Fall No trauma to the head. CT head negative X ray of the knees - No fracture. Fall precautions. Awaiting discharge planning and placement
[2016-07-31] MEDS: GABAPENTIN 100 MG CAPSULE (FP) PO SCH (21:31)
[2016-07-31] MEDS: traZODone HCL 50 MG TABLET (FP) PO SCH (21:31)
[2016-07-31] MEDS: TAMSULOSIN HCL 0.4 MG CAP.ER.24H (FP) PO SCH (21:31)
[2016-07-31] MEDS: ATORVASTATIN CA 10 MG TABLET (FP) PO SCH (21:32)
[2016-07-31] MEDS: ACETAMINOPHEN 325 MG TABLET (FP) PO PRN (21:32)
[2016-08-01] MEDS: NEOMYCIN/POLYMYXIN/BACITRACIN (TRIPLE ANTIBIOTIC) 28 GM OINTMENT TP SCH ×3 (04:54→22:04)
[2016-08-01] MEDS: NYSTATIN/TRIAMCINOLONE TOPICAL CREAM 15 GM TUBE TP SCH ×3 (04:54→22:05)
[2016-08-01] MEDS: ACETAMINOPHEN 325 MG TABLET (FP) PO PRN (07:08)
[2016-08-01] MEDS ORDERED: PT OWN MED DRAWER 7, Y5N ONE (09:57)
[2016-08-01] MEDS: PANTOPRAZOLE 40 MG TABLET (FP) PO SCH (10:01)
[2016-08-01] MEDS: LACTOBACILLUS ACIDOPHILUS 1 EACH TAB (FP) PO SCH (10:01)
[2016-08-01] MEDS: QUEtiapine FUMARATE 25 MG TABLET (FP) PO SCH ×2 (10:01→22:03)
[2016-08-01] MEDS: POTASSIUM CHLORIDE TABS 20 MEQ TABLET.ER (FP) PO SCH (10:01)
[2016-08-01] MEDS: FINASTERIDE 5 MG TABLET (FP) PO SCH (10:01)
[2016-08-01] MEDS: ASCORBIC ACID 500 MG TABLET (FP) PO SCH (10:02)
[2016-08-01] MEDS: COLLAGENASE CLOSTRIDIUM HIST. 30 GRAMS TUBE TP SCH (10:03)
--- NOTE | 2016-08-01 13:28 | PN ---
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, Physician History of Present Illness: stable no new issues - Current Medication List Current Medications: Active Medications Acetaminophen (Tylenol -) 650 mg PO Q4H PRN PRN Reason: FEVER OR PAIN Last Admin: 08/01/16 07:08 Dose: 650 mg Ascorbic Acid (Vitamin C -) 500 mg PO DAILY [facility] Last Admin: 08/01/16 10:02 Dose: 500 mg Atorvastatin Calcium (Lipitor -) 10 mg PO HS [facility] Last Admin: 07/31/16 21:32 Dose: 10 mg Collagenase (Santyl -) 1 applic TP DAILY [facility] Last Admin: 08/01/16 10:03 Dose: 1 applic Finasteride (Proscar -) 5 mg PO DAILY [facility] Last Admin: 08/01/16 10:01 Dose: 5 mg Gabapentin (Neurontin -) 100 mg PO HS [facility] Last Admin: 07/31/16 21:31 Dose: 100 mg Lactobacillus Acidophilus (Bacid -) 1 tab PO DAILY [facility] Last Admin: 08/01/16 10:01 Dose: 1 tab Neomycin/Polymyxin/Bacitracin (Neosporin Topical Ointment -) 1 applic TP BID [facility] Last Admin: 08/01/16 10:02 Dose: 1 applic Nystatin/Triamcinolone Acetonide (Mycolog Ii Cream -) 1 applic TP BID [facility] Last Admin: 08/01/16 10:02 Dose: 1 applic Pantoprazole Sodium (Protonix -) 40 mg PO DAILY [facility] Last Admin: 08/01/16 10:01 Dose: 40 mg Potassium Chloride (K-Dur -) 20 meq PO DAILY [facility] Last Admin: 08/01/16 10:01 Dose: 20 meq Quetiapine Fumarate (Seroquel -) 12.5 mg PO BID [facility] Last Admin: 08/01/16 10:01 Dose: 12.5 mg Tamsulosin HCl (Flomax -) 0.4 mg PO HS [facility] Last Admin: 07/31/16 21:31 Dose: 0.4 mg Trazodone HCl (Desyrel -) 37.5 mg PO HS [facility] Last Admin: 07/31/16 21:31 Dose: 37.5 mg - Objective Vital Signs: Vital Signs Temperature 98.2 F 08/01/16 07:55 Pulse Rate 77 08/01/16 07:55 Respiratory Rate 18 08/01/16 07:55 Blood Pressure 110/65 08/01/16 07:55 O2 Sat by Pulse Oximetry (%) 97 07/31/16 21:00 Constitutional: Yes: No Distress, Calm Cardiovascular: Yes: S1, S2 Respiratory: Yes: Regular, CTA Bilaterally Gastrointestinal: Yes: Normal Bowel Sounds, Soft Musculoskeletal: Yes: WNL Extremities: Yes: WNL Neurological: Yes: Alert, Oriented Psychiatric: Yes: Alert Labs: CBC, BMP 07/28/16 06:15 07/28/16 06:15 INR, PTT INR 1.18 (0.82-1.09) H 06/20/16 15:00 Assessment/Plan Problem List - Problems (1) Sepsis Code(s): A41.9 - SEPSIS, UNSPECIFIED ORGANISM Qualifiers: Sepsis type: sepsis due to unspecified organism Qualified Code(s): A41.9 - Sepsis, unspecified organism (2) UTI (urinary tract infection) Code(s): N39.0 - URINARY TRACT INFECTION, SITE NOT SPECIFIED Qualifiers: Urinary tract infection type: acute cystitis Hematuria presence: with hematuria Qualified Code(s): N30.01 - Acute cystitis with hematuria (3) Lactic acid acidosis Code(s): E87.2 - ACIDOSIS (4) Metabolic encephalopathy Code(s): G93.41 - METABOLIC ENCEPHALOPATHY (5) HTN (hypertension) Code(s): I10 - ESSENTIAL (PRIMARY) HYPERTENSION (6) Dementia Code(s): F03.90 - UNSPECIFIED DEMENTIA WITHOUT BEHAVIORAL DISTURBANCE 7 gram positive bacteremia 8 head aches plan doing better awaiting placement comfortable
[2016-08-01] MEDS ORDERED: QUEtiapine FUMARATE 25 MG TABLET (FP) PO ONE (17:25)
--- NOTE | 2016-08-01 19:17 | PN ---
Physical Exam: SUBJECTIVE: Patient seen and examined at bedside. Complaining of chest pain. Cannot give more specifics. Mildly agitated. OBJECTIVE: Vital Signs Period Temp Pulse Resp BP Sys/Kerr Pulse Ox Last 24 Hr 98.1 F-98.7 F 64-77 18-20 97-132/42-71 97 GENERAL: The patient is awake, responds to voice, ambulatory, speech nonsensical most of the time HEAD: Normal with no signs of trauma. EYES: PERRL, extraocular movements intact, sclera anicteric, conjunctiva clear. No ptosis. LUNGS: Breath sounds equal, clear to auscultation bilaterally, no wheezes, no crackles, no accessory muscle use. HEART: Regular rate and rhythm, S1, S2 without murmur, rub or gallop. ABDOMEN: Soft, nontender, nondistended, normoactive bowel sounds, no guarding, no rebound, no hepatosplenomegaly, no masses. EXTREMITIES: 2+ pulses, warm, well-perfused, no edema. NEUROLOGICAL: Cranial nerves II through XII grossly intact. Laboratory Results - last 24 hr 08/01/16 17:50 Troponin I < 0.02 D Active Medications Generic Name Dose Route Start Last Admin Trade Name Freq PRN Reason Stop Dose Admin Acetaminophen 650 mg 06/12/16 10:27 08/01/16 07:08 Tylenol - PO 650 mg Q4H PRN Administration FEVER OR PAIN Ascorbic Acid 500 mg 06/11/16 10:00 08/01/16 10:02 Vitamin C - PO 500 mg DAILY [facility] Administration Atorvastatin Calcium 10 mg 06/10/16 22:00 07/31/16 21:32 Lipitor - PO 10 mg HS [facility] Administration Collagenase 1 applic 06/11/16 10:00 08/01/16 10:03 Santyl - TP 1 applic DAILY [facility] Administration Finasteride 5 mg 06/11/16 10:00 08/01/16 10:01 Proscar - PO 5 mg DAILY [facility] Administration Gabapentin 100 mg 07/23/16 22:00 07/31/16 21:31 Neurontin - PO 100 mg HS [facility] Administration Lactobacillus Acidophilus 1 tab 06/11/16 10:00 08/01/16 10:01 Bacid - PO 1 tab DAILY [facility] Administration Neomycin/Polymyxin/Bacitracin 1 applic 06/27/16 22:00 08/01/16 10:02 Neosporin Topical Ointment - TP 1 applic BID [facility] Administration Nystatin/Triamcinolone Acetonide 1 applic 06/19/16 22:00 08/01/16 10:02 Mycolog Ii Cream - TP 1 applic BID [facility] Administration Pantoprazole Sodium 40 mg 06/11/16 10:00 08/01/16 10:01 Protonix - PO 40 mg DAILY [facility] Administration Potassium Chloride 20 meq 06/27/16 10:00 08/01/16 10:01 K-Dur - PO 20 meq DAILY [facility] Administration Quetiapine Fumarate 25 mg 08/01/16 22:00 Seroquel - PO BID [facility] Tamsulosin HCl 0.4 mg 06/10/16 22:00 07/31/16 21:31 Flomax - PO 0.4 mg HS [facility] Administration Trazodone HCl 37.5 mg 06/10/16 22:00 07/31/16 21:31 Desyrel - PO 37.5 mg HS [facility] Administration ASSESSMENT/PLAN: Headache Resolved Tylenol prn. Sepsis Resolved UTI (urinary tract infection) Resolved Metabolic encephalopathy stable HTN (hypertension) Controlled Dementia with behavioral disturbance Restlessness and anxiety has increased according to staff; observed patient to be very agitated this afternoon, in and out of wheelchair and bed, could not be re-directed Increased seroquel to 25mg BID. Anemia h/h stable S/P Fall No trauma to the head. CT head negative X ray of the knees - No fracture. Fall precautions. Chest pain --first troponin negative, 2 pending --ECG pending Awaiting discharge planning and placement Visit type - Emergency Visit Emergency Visit: Yes ED Registration Date: 06/10/16 Care time: The patient presented to the Emergency Department on the above date and was hospitalized for further evaluation of their emergent condition. - New Patient This patient is new to me today: Yes Date on this admission: 08/01/16 - Critical Care Critical Care patient: No
[2016-08-01] MEDS: GABAPENTIN 100 MG CAPSULE (FP) PO SCH (22:02)
[2016-08-01] MEDS: ATORVASTATIN CA 10 MG TABLET (FP) PO SCH (22:02)
[2016-08-01] MEDS: traZODone HCL 50 MG TABLET (FP) PO SCH (22:02)
[2016-08-01] MEDS: TAMSULOSIN HCL 0.4 MG CAP.ER.24H (FP) PO SCH (22:03)
[2016-08-02] MEDS ORDERED: PT OWN MED DRAWER 7, Y5N ONE (10:27)
[2016-08-02] MEDS: POTASSIUM CHLORIDE TABS 20 MEQ TABLET.ER (FP) PO SCH (10:31)
[2016-08-02] MEDS: PANTOPRAZOLE 40 MG TABLET (FP) PO SCH (10:31)
[2016-08-02] MEDS: FINASTERIDE 5 MG TABLET (FP) PO SCH (10:31)
[2016-08-02] MEDS: LACTOBACILLUS ACIDOPHILUS 1 EACH TAB (FP) PO SCH (10:31)
[2016-08-02] MEDS: QUEtiapine FUMARATE 25 MG TABLET (FP) PO SCH ×3 (10:31→21:00)
[2016-08-02] MEDS: COLLAGENASE CLOSTRIDIUM HIST. 30 GRAMS TUBE TP SCH (10:32)
[2016-08-02] MEDS: NEOMYCIN/POLYMYXIN/BACITRACIN (TRIPLE ANTIBIOTIC) 28 GM OINTMENT TP SCH ×2 (10:32→21:23)
[2016-08-02] MEDS: ASCORBIC ACID 500 MG TABLET (FP) PO SCH (10:32)
[2016-08-02] MEDS: NYSTATIN/TRIAMCINOLONE TOPICAL CREAM 15 GM TUBE TP SCH ×2 (10:32→21:23)
--- NOTE | 2016-08-02 13:25 | PN ---
Physical Exam: SUBJECTIVE: Patient seen and examined. Agitated today, calling out, tried to strike member of the staff. OBJECTIVE: Vital Signs Period Temp Pulse Resp BP Sys/Kerr Pulse Ox Last 24 Hr 97.2 F-98.7 F 58-74 18-20 103-134/42-66 97 GENERAL: The patient is awake. Speech is unintelligible at times. Calls out. Agitated. No objective signs of pain. LUNGS: Breath sounds equal, clear to auscultation bilaterally, no wheezes, no crackles, no accessory muscle use. HEART: Regular rate and rhythm, S1, S2 without murmur, rub or gallop. ABDOMEN: Soft, nontender, nondistended, normoactive bowel sounds, no guarding, no rebound EXTREMITIES: 2+ pulses, warm, well-perfused, no edema. NEUROLOGICAL: Cranial nerves II through XII grossly intact. CBCD WBC 8.3 K/mm3 (4.0-10.0) D 07/28/16 06:15 RBC 3.95 M/mm3 (4.00-5.60) L 07/28/16 06:15 Hgb 10.8 GM/dL (11.7-16.9) L D 07/28/16 06:15 Hct 33.5 % (35.4-49) L 07/28/16 06:15 MCV 84.9 fl (80-96) 07/28/16 06:15 MCHC 32.3 g/dl (32.0-35.9) 07/28/16 06:15 RDW 17.1 % (11.9-15.9) H 07/28/16 06:15 Plt Count 244 K/MM3 (134-434) D 07/28/16 06:15 MPV 8.9 fl (7.5-11.1) 07/28/16 06:15 CMP Sodium 137 mmol/L (136-145) 07/28/16 06:15 Potassium 4.6 mmol/L (3.5-5.1) 07/28/16 06:15 Chloride 103 mmol/L (98-107) 07/28/16 06:15 Carbon Dioxide 27 mmol/L (21-32) 07/28/16 06:15 Anion Gap 7 (8-16) L 07/28/16 06:15 BUN 27 mg/dL (7-18) H 07/28/16 06:15 Creatinine 0.7 mg/dL (0.7-1.3) 07/28/16 06:15 Creat Clearance w eGFR > 60 (>60) 07/28/16 06:15 Calcium 9.1 mg/dL (8.5-10.1) 07/28/16 06:15 Total Bilirubin 0.8 mg/dL (0.2-1.0) 07/28/16 06:15 AST 38 U/L (15-37) H D 07/28/16 06:15 ALT 27 U/L (12-78) D 07/28/16 06:15 Alkaline Phosphatase 75 U/L (45-117) 07/28/16 06:15 Total Protein 6.4 g/dl (6.4-8.2) D 07/28/16 06:15 Albumin 2.9 g/dl (3.4-5.0) L D 07/28/16 06:15 Laboratory Results - last 24 hr 08/01/16 08/01/16 08/02/16 17:50 23:20 05:30 Troponin I < 0.02 D < 0.02 < 0.02 Active Medications Generic Name Dose Route Start Last Admin Trade Name Freq PRN Reason Stop Dose Admin Acetaminophen 650 mg 06/12/16 10:27 08/01/16 07:08 Tylenol - PO 650 mg Q4H PRN Administration FEVER OR PAIN Ascorbic Acid 500 mg 06/11/16 10:00 08/02/16 10:32 Vitamin C - PO 500 mg DAILY [facility] Administration Atorvastatin Calcium 10 mg 06/10/16 22:00 08/01/16 22:02 Lipitor - PO 10 mg HS [facility] Administration Collagenase 1 applic 06/11/16 10:00 08/02/16 10:32 Santyl - TP 1 applic DAILY [facility] Administration Finasteride 5 mg 06/11/16 10:00 08/02/16 10:31 Proscar - PO 5 mg DAILY [facility] Administration Gabapentin 100 mg 07/23/16 22:00 08/01/16 22:02 Neurontin - PO 100 mg HS [facility] Administration Lactobacillus Acidophilus 1 tab 06/11/16 10:00 08/02/16 10:31 Bacid - PO 1 tab DAILY [facility] Administration Neomycin/Polymyxin/Bacitracin 1 applic 06/27/16 22:00 08/02/16 10:32 Neosporin Topical Ointment - TP 1 applic BID [facility] Administration Nystatin/Triamcinolone Acetonide 1 applic 06/19/16 22:00 08/02/16 10:32 Mycolog Ii Cream - TP 1 applic BID [facility] Administration Pantoprazole Sodium 40 mg 06/11/16 10:00 08/02/16 10:31 Protonix - PO 40 mg DAILY [facility] Administration Potassium Chloride 20 meq 06/27/16 10:00 08/02/16 10:31 K-Dur - PO 20 meq DAILY [facility] Administration Quetiapine Fumarate 25 mg 08/02/16 14:00 Seroquel - PO TID [facility] Tamsulosin HCl 0.4 mg 06/10/16 22:00 08/01/16 22:03 Flomax - PO 0.4 mg HS [facility] Administration Trazodone HCl 37.5 mg 06/10/16 22:00 08/01/16 22:02 Desyrel - PO 37.5 mg HS [facility] Administration ASSESSMENT/PLAN Headache, resolved Sepsis, resolved Resolved UTI, resolved Metabolic encephalopathy, resolved HTN Controlled Dementia with behavioral disturbance Restlessness and anxiety has increased over past 48 hours Increased seroquel to 25mg TID Anemia h/h stable S/P Fall No trauma to the head. CT head negative X ray of the knees - No fracture. Fall precautions. Chest pain --troponins neg x 3 --ECG not suggestive of acute ischemic event --complaint of chest pain occurred during a period of high anxiety Dispo: Awaiting discharge planning and placement Visit type - Emergency Visit Emergency Visit: Yes ED Registration Date: 06/10/16 Care time: The patient presented to the Emergency Department on the above date and was hospitalized for further evaluation of their emergent condition. - New Patient This patient is new to me today: No - Critical Care Critical Care patient: No
[2016-08-02] MEDS: traZODone HCL 50 MG TABLET (FP) PO SCH (21:00)
[2016-08-02] MEDS: TAMSULOSIN HCL 0.4 MG CAP.ER.24H (FP) PO SCH (21:01)
[2016-08-02] MEDS: GABAPENTIN 100 MG CAPSULE (FP) PO SCH (21:01)
--- NOTE | 2016-08-02 21:08 | EKG ---
Test Reason : Blood Pressure : / mmHG Vent. Rate : 078 BPM Atrial Rate : 078 BPM P-R Int : 130 ms QRS Dur : 072 ms QT Int : 364 ms P-R-T Axes : 047 -01 028 degrees QTc Int : 414 ms NORMAL SINUS RHYTHM NORMAL ECG WHEN COMPARED WITH ECG OF 10-JUN-2016 14:46, VENT. RATE HAS DECREASED BY 47 BPM Confirmed by MEGAN CARO MD ([id number]) on 08/02/2016 9:07:55 PM Referred By: Elisha LINN Confirmed By:MEGAN CARO MD
[2016-08-02] MEDS: ATORVASTATIN CA 10 MG TABLET (FP) PO SCH (21:23)
[2016-08-03] MEDS: QUEtiapine FUMARATE 25 MG TABLET (FP) PO SCH ×3 (05:31→21:37)
[2016-08-03] MEDS ORDERED: PT OWN MED DRAWER 7, Y5N ONE (09:05)
[2016-08-03] MEDS: FINASTERIDE 5 MG TABLET (FP) PO SCH (09:35)
[2016-08-03] MEDS: POTASSIUM CHLORIDE TABS 20 MEQ TABLET.ER (FP) PO SCH (09:35)
[2016-08-03] MEDS: PANTOPRAZOLE 40 MG TABLET (FP) PO SCH (09:35)
[2016-08-03] MEDS: ASCORBIC ACID 500 MG TABLET (FP) PO SCH (09:35)
[2016-08-03] MEDS: LACTOBACILLUS ACIDOPHILUS 1 EACH TAB (FP) PO SCH (09:35)
[2016-08-03] MEDS: NEOMYCIN/POLYMYXIN/BACITRACIN (TRIPLE ANTIBIOTIC) 28 GM OINTMENT TP SCH ×2 (09:36→21:37)
[2016-08-03] MEDS: NYSTATIN/TRIAMCINOLONE TOPICAL CREAM 15 GM TUBE TP SCH ×2 (09:36→21:37)
[2016-08-03] MEDS: COLLAGENASE CLOSTRIDIUM HIST. 30 GRAMS TUBE TP SCH (09:36)
--- NOTE | 2016-08-03 10:58 | PN ---
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 (short form) - Note 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: Not agitated. Denies chest pain, shortness of breath, palpitation or dizziness. O/E Vital Signs Period Temp Pulse Resp BP Sys/Kerr Pulse Ox Last 24 Hr 97.6 F-98.5 F 62-64 18-20 117-121/58-66 97 Heart regular Lungs clear Abd soft Ext no edema Current Medications Acetaminophen (Tylenol -) 650 mg PO Q4H PRN PRN Reason: FEVER OR PAIN Last Admin: 07/26/16 16:02 Dose: 650 mg Ascorbic Acid (Vitamin C -) 500 mg PO DAILY [facility] Last Admin: 07/26/16 09:08 Dose: 500 mg Atorvastatin Calcium (Lipitor -) 10 mg PO HS [facility] Last Admin: 07/25/16 21:08 Dose: 10 mg Collagenase (Santyl -) 1 applic TP DAILY [facility] Last Admin: 07/26/16 09:11 Dose: 1 applic Finasteride (Proscar -) 5 mg PO DAILY [facility] Last Admin: 07/26/16 09:08 Dose: 5 mg Gabapentin (Neurontin -) 100 mg PO HS [facility] Last Admin: 07/25/16 21:08 Dose: 100 mg Lactobacillus Acidophilus (Bacid -) 1 tab PO DAILY [facility] Last Admin: 07/26/16 09:08 Dose: 1 tab Lorazepam (Ativan Injection -) 0.5 mg IM DAILY PRN PRN Reason: AGITATION Magnesium Oxide (Mag-Ox -) 400 mg PO BID [facility] Last Admin: 07/26/16 09:08 Dose: 400 mg Neomycin/Polymyxin/Bacitracin (Neosporin Topical Ointment -) 1 applic TP BID [facility] Last Admin: 07/26/16 09:10 Dose: 1 applic Nystatin/Triamcinolone Acetonide (Mycolog Ii Cream -) 1 applic TP BID [facility] Last Admin: 07/26/16 09:09 Dose: 1 applic Pantoprazole Sodium (Protonix -) 40 mg PO DAILY [facility] Last Admin: 07/26/16 09:08 Dose: 40 mg Potassium Chloride (K-Dur -) 20 meq PO DAILY [facility] Last Admin: 07/26/16 09:08 Dose: 20 meq Potassium Phos/Sodium Phos (Phos-Nak Packet -) 1 packet PO BID [facility] Last Admin: 07/26/16 09:11 Dose: 1 packet Quetiapine Fumarate (Seroquel -) 12.5 mg PO BID [facility] Last Admin: 07/26/16 09:08 Dose: 12.5 mg Tamsulosin HCl (Flomax -) 0.4 mg PO [facility] Last Admin: 07/25/16 21:08 Dose: 0.4 mg Trazodone HCl (Desyrel -) 37.5 mg PO HS [facility] Last Admin: 07/25/16 21:09 Dose: 37.5 mg CBC, BMP 07/28/16 06:15 07/28/16 06:15 A&P Assessment/Plan Headache, resolved Sepsis, resolved UTI, resolved Metabolic encephalopathy, resolved HTN Controlled Dementia with behavioral disturbance Restlessness and anxiety has increased over past 48 hours seroquel increased to 25mg TID Anemia h/h stable S/P Fall No trauma to the head. CT head negative X ray of the knees - No fracture. Fall precautions. Chest pain --troponins neg x 3 --ECG not suggestive of acute ischemic event --complaint of chest pain occurred during a period of high anxiety Dispo: Awaiting discharge planning and placement Awaiting discharge planning and placement
--- NOTE | 2016-08-03 12:04 | PN ---
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, Physician History of Present Illness: stable no new issues - Current Medication List Current Medications: Active Medications Acetaminophen (Tylenol -) 650 mg PO Q4H PRN PRN Reason: FEVER OR PAIN Last Admin: 08/01/16 07:08 Dose: 650 mg Ascorbic Acid (Vitamin C -) 500 mg PO DAILY [facility] Last Admin: 08/03/16 09:35 Dose: 500 mg Atorvastatin Calcium (Lipitor -) 10 mg PO HS [facility] Last Admin: 08/02/16 21:23 Dose: 10 mg Collagenase (Santyl -) 1 applic TP DAILY [facility] Last Admin: 08/03/16 09:36 Dose: 1 applic Finasteride (Proscar -) 5 mg PO DAILY [facility] Last Admin: 08/03/16 09:35 Dose: 5 mg Gabapentin (Neurontin -) 100 mg PO HS [facility] Last Admin: 08/02/16 21:01 Dose: 100 mg Lactobacillus Acidophilus (Bacid -) 1 tab PO DAILY [facility] Last Admin: 08/03/16 09:35 Dose: 1 tab Neomycin/Polymyxin/Bacitracin (Neosporin Topical Ointment -) 1 applic TP BID [facility] Last Admin: 08/03/16 09:36 Dose: 1 applic Nystatin/Triamcinolone Acetonide (Mycolog Ii Cream -) 1 applic TP BID [facility] Last Admin: 08/03/16 09:36 Dose: 1 applic Pantoprazole Sodium (Protonix -) 40 mg PO DAILY [facility] Last Admin: 08/03/16 09:35 Dose: 40 mg Potassium Chloride (K-Dur -) 20 meq PO DAILY [facility] Last Admin: 08/03/16 09:35 Dose: 20 meq Quetiapine Fumarate (Seroquel -) 25 mg PO TID [facility] Last Admin: 08/03/16 05:31 Dose: 25 mg Tamsulosin HCl (Flomax -) 0.4 mg PO HS [facility] Last Admin: 08/02/16 21:01 Dose: 0.4 mg Trazodone HCl (Desyrel -) 37.5 mg PO HS [facility] Last Admin: 08/02/16 21:00 Dose: 37.5 mg - Objective Vital Signs: Vital Signs Temperature 98.4 F 08/03/16 10:00 Pulse Rate 62 08/03/16 10:00 Respiratory Rate 16 08/03/16 10:00 Blood Pressure 116/69 08/03/16 10:00 O2 Sat by Pulse Oximetry (%) 97 08/03/16 09:00 Constitutional: Yes: No Distress, Calm HENT: Yes: Atraumatic Cardiovascular: Yes: S1, S2 Respiratory: Yes: Regular, CTA Bilaterally Gastrointestinal: Yes: Normal Bowel Sounds, Soft Musculoskeletal: Yes: WNL Extremities: Yes: WNL Neurological: Yes: Alert, Other Psychiatric: Yes: Alert Labs: CBC, BMP 07/28/16 06:15 07/28/16 06:15 INR, PTT INR 1.18 (0.82-1.09) H 06/20/16 15:00 Assessment/Plan Problem List - Problems (1) Sepsis Code(s): A41.9 - SEPSIS, UNSPECIFIED ORGANISM Qualifiers: Sepsis type: sepsis due to unspecified organism Qualified Code(s): A41.9 - Sepsis, unspecified organism (2) UTI (urinary tract infection) Code(s): N39.0 - URINARY TRACT INFECTION, SITE NOT SPECIFIED Qualifiers: Urinary tract infection type: acute cystitis Hematuria presence: with hematuria Qualified Code(s): N30.01 - Acute cystitis with hematuria (3) Lactic acid acidosis Code(s): E87.2 - ACIDOSIS (4) Metabolic encephalopathy Code(s): G93.41 - METABOLIC ENCEPHALOPATHY (5) HTN (hypertension) Code(s): I10 - ESSENTIAL (PRIMARY) HYPERTENSION (6) Dementia Code(s): F03.90 - UNSPECIFIED DEMENTIA WITHOUT BEHAVIORAL DISTURBANCE 7 gram positive bacteremia 8 head aches plan doing better awaiting placement comfortable
[2016-08-03] MEDS: TAMSULOSIN HCL 0.4 MG CAP.ER.24H (FP) PO SCH (21:36)
[2016-08-03] MEDS: traZODone HCL 50 MG TABLET (FP) PO SCH (21:36)
[2016-08-03] MEDS: ATORVASTATIN CA 10 MG TABLET (FP) PO SCH (21:37)
[2016-08-03] MEDS: GABAPENTIN 100 MG CAPSULE (FP) PO SCH (21:37)
[2016-08-04] MEDS: QUEtiapine FUMARATE 25 MG TABLET (FP) PO SCH ×3 (06:16→21:32)
[2016-08-04] MEDS: COLLAGENASE CLOSTRIDIUM HIST. 30 GRAMS TUBE TP SCH (09:23)
[2016-08-04] MEDS: PANTOPRAZOLE 40 MG TABLET (FP) PO SCH (09:23)
[2016-08-04] MEDS: FINASTERIDE 5 MG TABLET (FP) PO SCH (09:23)
[2016-08-04] MEDS: POTASSIUM CHLORIDE TABS 20 MEQ TABLET.ER (FP) PO SCH (09:23)
[2016-08-04] MEDS: NYSTATIN/TRIAMCINOLONE TOPICAL CREAM 15 GM TUBE TP SCH ×2 (09:23→21:33)
[2016-08-04] MEDS: ASCORBIC ACID 500 MG TABLET (FP) PO SCH (09:23)
[2016-08-04] MEDS: NEOMYCIN/POLYMYXIN/BACITRACIN (TRIPLE ANTIBIOTIC) 28 GM OINTMENT TP SCH ×2 (09:23→21:33)
[2016-08-04] MEDS: LACTOBACILLUS ACIDOPHILUS 1 EACH TAB (FP) PO SCH (09:23)
--- NOTE | 2016-08-04 10:49 | PN ---
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 (short form) - Note 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: Not agitated. Denies chest pain, shortness of breath, palpitation or dizziness. O/E Vital Signs Period Temp Pulse Resp BP Sys/Kerr Pulse Ox Last 24 Hr 98.0 F-98.5 F 61-68 18-18 117-122/59-68 97 Heart regular Lungs clear Abd soft Ext no edema Current Medications Acetaminophen (Tylenol -) 650 mg PO Q4H PRN PRN Reason: FEVER OR PAIN Last Admin: 08/01/16 07:08 Dose: 650 mg Ascorbic Acid (Vitamin C -) 500 mg PO DAILY [facility] Last Admin: 08/04/16 09:23 Dose: 500 mg Atorvastatin Calcium (Lipitor -) 10 mg PO HS [facility] Last Admin: 08/03/16 21:37 Dose: 10 mg Collagenase (Santyl -) 1 applic TP DAILY [facility] Last Admin: 08/04/16 09:23 Dose: 1 applic Finasteride (Proscar -) 5 mg PO DAILY [facility] Last Admin: 08/04/16 09:23 Dose: 5 mg Gabapentin (Neurontin -) 100 mg PO HS [facility] Last Admin: 08/03/16 21:37 Dose: 100 mg Lactobacillus Acidophilus (Bacid -) 1 tab PO DAILY [facility] Last Admin: 08/04/16 09:23 Dose: 1 tab Neomycin/Polymyxin/Bacitracin (Neosporin Topical Ointment -) 1 applic TP BID [facility] Last Admin: 08/04/16 09:23 Dose: 1 applic Nystatin/Triamcinolone Acetonide (Mycolog Ii Cream -) 1 applic TP BID [facility] Last Admin: 08/04/16 09:23 Dose: 1 applic Pantoprazole Sodium (Protonix -) 40 mg PO DAILY [facility] Last Admin: 08/04/16 09:23 Dose: 40 mg Potassium Chloride (K-Dur -) 20 meq PO DAILY [facility] Last Admin: 08/04/16 09:23 Dose: 20 meq Quetiapine Fumarate (Seroquel -) 25 mg PO TID [facility] Last Admin: 08/04/16 06:16 Dose: 25 mg Tamsulosin HCl (Flomax -) 0.4 mg PO HS [facility] Last Admin: 08/03/16 21:36 Dose: 0.4 mg Trazodone HCl (Desyrel -) 37.5 mg PO HS [facility] Last Admin: 08/03/16 21:36 Dose: 37.5 mg CBC, BMP 07/28/16 06:15 07/28/16 06:15 A&P Assessment/Plan Headache, resolved Sepsis, resolved UTI, resolved Metabolic encephalopathy, resolved HTN Controlled Dementia with behavioral disturbance Restlessness and anxiety has increased. Will have psych reval. Continue seroquel 25mg TID Anemia h/h stable S/P Fall No trauma to the head. CT head negative X ray of the knees - No fracture. Fall precautions. Chest pain --troponins neg x 3 --ECG not suggestive of acute ischemic event --complaint of chest pain occurred during a period of high anxiety Dispo: Awaiting discharge planning and placement t
--- NOTE | 2016-08-04 13:37 | PN ---
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, Physician History of Present Illness: stable no new issues - Current Medication List Current Medications: Active Medications Acetaminophen (Tylenol -) 650 mg PO Q4H PRN PRN Reason: FEVER OR PAIN Last Admin: 08/01/16 07:08 Dose: 650 mg Ascorbic Acid (Vitamin C -) 500 mg PO DAILY [facility] Last Admin: 08/04/16 09:23 Dose: 500 mg Atorvastatin Calcium (Lipitor -) 10 mg PO HS [facility] Last Admin: 08/03/16 21:37 Dose: 10 mg Collagenase (Santyl -) 1 applic TP DAILY [facility] Last Admin: 08/04/16 09:23 Dose: 1 applic Finasteride (Proscar -) 5 mg PO DAILY [facility] Last Admin: 08/04/16 09:23 Dose: 5 mg Lactobacillus Acidophilus (Bacid -) 1 tab PO DAILY [facility] Last Admin: 08/04/16 09:23 Dose: 1 tab Neomycin/Polymyxin/Bacitracin (Neosporin Topical Ointment -) 1 applic TP BID [facility] Last Admin: 08/04/16 09:23 Dose: 1 applic Nystatin/Triamcinolone Acetonide (Mycolog Ii Cream -) 1 applic TP BID [facility] Last Admin: 08/04/16 09:23 Dose: 1 applic Pantoprazole Sodium (Protonix -) 40 mg PO DAILY [facility] Last Admin: 08/04/16 09:23 Dose: 40 mg Potassium Chloride (K-Dur -) 20 meq PO DAILY [facility] Last Admin: 08/04/16 09:23 Dose: 20 meq Quetiapine Fumarate (Seroquel -) 25 mg PO TID [facility] Last Admin: 08/04/16 13:12 Dose: 25 mg Tamsulosin HCl (Flomax -) 0.4 mg PO [facility] Last Admin: 08/03/16 21:36 Dose: 0.4 mg Trazodone HCl (Desyrel -) 37.5 mg PO HS [facility] Last Admin: 08/03/16 21:36 Dose: 37.5 mg - Objective Vital Signs: Vital Signs Temperature 97.6 F 08/04/16 10:00 Pulse Rate 63 08/04/16 10:00 Respiratory Rate 16 08/04/16 10:00 Blood Pressure 110/56 08/04/16 10:00 O2 Sat by Pulse Oximetry (%) 97 08/04/16 09:00 Constitutional: Yes: No Distress, Calm Cardiovascular: Yes: S1, S2 Respiratory: Yes: Regular, CTA Bilaterally Gastrointestinal: Yes: Normal Bowel Sounds, Soft Musculoskeletal: Yes: WNL Extremities: Yes: WNL Neurological: Yes: Alert, Oriented Psychiatric: Yes: Alert Labs: CBC, BMP 07/28/16 06:15 07/28/16 06:15 INR, PTT INR 1.18 (0.82-1.09) H 06/20/16 15:00 Assessment/Plan Problem List - Problems (1) Sepsis Code(s): A41.9 - SEPSIS, UNSPECIFIED ORGANISM Qualifiers: Sepsis type: sepsis due to unspecified organism Qualified Code(s): A41.9 - Sepsis, unspecified organism (2) UTI (urinary tract infection) Code(s): N39.0 - URINARY TRACT INFECTION, SITE NOT SPECIFIED Qualifiers: Urinary tract infection type: acute cystitis Hematuria presence: with hematuria Qualified Code(s): N30.01 - Acute cystitis with hematuria (3) Lactic acid acidosis Code(s): E87.2 - ACIDOSIS (4) Metabolic encephalopathy Code(s): G93.41 - METABOLIC ENCEPHALOPATHY (5) HTN (hypertension) Code(s): I10 - ESSENTIAL (PRIMARY) HYPERTENSION (6) Dementia Code(s): F03.90 - UNSPECIFIED DEMENTIA WITHOUT BEHAVIORAL DISTURBANCE 7 gram positive bacteremia 8 head aches plan doing better awaiting placement comfortable
[2016-08-04] MEDS: TAMSULOSIN HCL 0.4 MG CAP.ER.24H (FP) PO SCH (21:32)
[2016-08-04] MEDS: ATORVASTATIN CA 10 MG TABLET (FP) PO SCH (21:33)
[2016-08-04] MEDS: traZODone HCL 50 MG TABLET (FP) PO SCH (21:33)
--- NOTE | 2016-08-04 21:42 | PN ---
Mental Health Exam - Mental Status Exam Alert and Oriented to: Time (disorientted to time and person. ) Cognitive Function: Impaired Patient Appearance: Disheveled (wearing diaper, hospiyal gown) Mood: Fearful, Anxious (constantly making some anxious sounds. ), Apprehensive Affect: Appropriate Patient Behavior: Restless, Distractible, Appropriate, Cooperative Speech Pattern: Unclear, Delayed Voice Loudness: Mildly Soft/Quiet Thought Process: Tangential, Disoriented Thought Disorder: Present (calling "Ines', who appartently is person who cares for his dog. ) Hallucinations: Denies Suicidal Ideation: None Homicidal Ideation: None Insight/Judgement: Impaired Sleep: Well (slept untill % am per nurse DEEPAK Rodriguez)
--- NOTE | 2016-08-04 21:55 | PN ---
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, Physician Chief Complaint: I live in [facility] with my daughter, i am from [place]' History of Present Illness: Client is 80 yo male, has a history of being extended time in [facility] , he is disorientated by but has go physically stronger, but fall risk, appetite present tonight. lient noted to be shouting after Rn administer night meds tonight. Client has delayed speech and and making gutteal sound frequently anxious, restless unable to be still for extended periods. Has a history of dementia with mild agitation. As per RN report may be discharged to assisted living, as he requires a higher level of care than home can accommodate. - Current Medication List Current Medications: Active Medications Acetaminophen (Tylenol -) 650 mg PO Q4H PRN PRN Reason: FEVER OR PAIN Last Admin: 08/01/16 07:08 Dose: 650 mg Ascorbic Acid (Vitamin C -) 500 mg PO DAILY [facility] Last Admin: 08/04/16 09:23 Dose: 500 mg Atorvastatin Calcium (Lipitor -) 10 mg PO HS [facility] Last Admin: 08/04/16 21:33 Dose: 10 mg Collagenase (Santyl -) 1 applic TP DAILY [facility] Last Admin: 08/04/16 09:23 Dose: 1 applic Finasteride (Proscar -) 5 mg PO DAILY [facility] Last Admin: 08/04/16 09:23 Dose: 5 mg Lactobacillus Acidophilus (Bacid -) 1 tab PO DAILY [facility] Last Admin: 08/04/16 09:23 Dose: 1 tab Neomycin/Polymyxin/Bacitracin (Neosporin Topical Ointment -) 1 applic TP BID [facility] Last Admin: 08/04/16 21:33 Dose: 1 applic Nystatin/Triamcinolone Acetonide (Mycolog Ii Cream -) 1 applic TP BID [facility] Last Admin: 08/04/16 21:33 Dose: 1 applic Pantoprazole Sodium (Protonix -) 40 mg PO DAILY [facility] Last Admin: 08/04/16 09:23 Dose: 40 mg Polyethylene Glycol (Miralax (For Daily Use) -) 17 gm PO DAILY [facility] Potassium Chloride (K-Dur -) 20 meq PO DAILY [facility] Last Admin: 08/04/16 09:23 Dose: 20 meq Quetiapine Fumarate (Seroquel -) 25 mg PO TID [facility] Last Admin: 08/04/16 21:32 Dose: 25 mg Tamsulosin HCl (Flomax -) 0.4 mg PO HS [facility] Last Admin: 08/04/16 21:32 Dose: 0.4 mg Trazodone HCl (Desyrel -) 37.5 mg PO HS [facility] Last Admin: 08/04/16 21:33 Dose: 37.5 mg - Objective Vital Signs: Vital Signs Temperature 98.6 F 08/04/16 16:00 Pulse Rate 69 08/04/16 16:00 Respiratory Rate 18 08/04/16 16:00 Blood Pressure 120/62 08/04/16 16:00 O2 Sat by Pulse Oximetry (%) 97 08/04/16 09:00 Labs: CBC, BMP 07/28/16 06:15 07/28/16 06:15 INR, PTT INR 1.18 (0.82-1.09) H 06/20/16 15:00 Problem List - Problems (1) Dementia Code(s): F03.90 - UNSPECIFIED DEMENTIA WITHOUT BEHAVIORAL DISTURBANCE Qualifiers: Dementia type: unspecified type Dementia behavioral disturbance: with behavioral disturbance Qualified Code(s): F03.91 - Unspecified dementia with behavioral disturbance Assessment/Plan Mr Mcdonald is on seroquel 25mg po trid, may continue same. He is also on trazadone 37.5 mg at [facility] for insomnia. Neurontin was discontinued. may offer po prn of Seroquel 12.5 mg po prn q 12 hours for severe shouting, behavioral disturbances. Reminiscence therapy is recommended. Patient preference to help him be calmer, reduce stimulation at night. Thanks for consult.
[2016-08-05] MEDS: QUEtiapine FUMARATE 25 MG TABLET (FP) PO SCH ×3 (06:14→21:31)
[2016-08-05 08:02] LABS: BASOPHIL 0.5 % (0-2.0); EOSINOPHIL 3.3 % (0-4.5); MCH 27.4 pg (25.7-33.7); MCHC 32.8 g/dl (32.0-35.9); MEAN CELL VOLUME 83.5 fl (80-96); MEAN PLT VOLUME 8.9 fl (7.5-11.1); NEUTROPHILS 63.9 % (42.8-82.8); PLATELET COUNT 187 K/MM3 (134-434); WHITE BLOOD COUNT 7.9 K/mm3 (4.0-10.0)
[2016-08-05 08:25] LABS: ALBUMIN 2.4 g/dl (3.4-5.0); BILIRUBIN,TOTAL 0.5 mg/dL (0.2-1.0); CALCIUM 8.3 mg/dL (8.5-10.1); CREATININE 0.6 mg/dL (0.7-1.3); GLUCOSE,RANDOM 70 mg/dL (74-106); SGOT/AST 17 U/L (15-37); SGPT/ALT 21 U/L (12-78); TOT PROT 5.7 g/dl (6.4-8.2)
[2016-08-05 08:28] LABS: ALK PHOS 66 U/L (45-117); ANION GAP 8 (8-16); CO2 28 mmol/L (21-32)
--- NOTE | 2016-08-05 09:02 | PN ---
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 (short form) - Note 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: Not agitated. Denies chest pain, shortness of breath, palpitation or dizziness. O/E Vital Signs Period Temp Pulse Resp BP Sys/Kerr Pulse Ox Last 24 Hr 97.6 F-98.6 F 60-69 16-18 100-122/56-75 97 Heart regular Lungs clear Abd soft Ext no edema Current Medications Acetaminophen (Tylenol -) 650 mg PO Q4H PRN PRN Reason: FEVER OR PAIN Last Admin: 08/01/16 07:08 Dose: 650 mg Ascorbic Acid (Vitamin C -) 500 mg PO DAILY [facility] Last Admin: 08/04/16 09:23 Dose: 500 mg Atorvastatin Calcium (Lipitor -) 10 mg PO HS [facility] Last Admin: 08/04/16 21:33 Dose: 10 mg Collagenase (Santyl -) 1 applic TP DAILY [facility] Last Admin: 08/04/16 09:23 Dose: 1 applic Ferrous Sulfate (Feosol -) 325 mg PO DAILY [facility] Finasteride (Proscar -) 5 mg PO DAILY [facility] Last Admin: 08/04/16 09:23 Dose: 5 mg Lactobacillus Acidophilus (Bacid -) 1 tab PO DAILY [facility] Last Admin: 08/04/16 09:23 Dose: 1 tab Neomycin/Polymyxin/Bacitracin (Neosporin Topical Ointment -) 1 applic TP BID [facility] Last Admin: 08/04/16 21:33 Dose: 1 applic Nystatin/Triamcinolone Acetonide (Mycolog Ii Cream -) 1 applic TP BID [facility] Last Admin: 08/04/16 21:33 Dose: 1 applic Pantoprazole Sodium (Protonix -) 40 mg PO DAILY [facility] Last Admin: 08/04/16 09:23 Dose: 40 mg Polyethylene Glycol (Miralax (For Daily Use) -) 17 gm PO DAILY [facility] Potassium Chloride (K-Dur -) 20 meq PO DAILY [facility] Last Admin: 08/04/16 09:23 Dose: 20 meq Quetiapine Fumarate (Seroquel -) 25 mg PO TID [facility] Last Admin: 08/05/16 06:14 Dose: 25 mg Tamsulosin HCl (Flomax -) 0.4 mg PO HS [facility] Last Admin: 08/04/16 21:32 Dose: 0.4 mg Trazodone HCl (Desyrel -) 37.5 mg PO HS [facility] Last Admin: 08/04/16 21:33 Dose: 37.5 mg CBC, BMP 08/05/16 06:30 08/05/16 06:30 A&P Assessment/Plan Headache, resolved Sepsis, resolved UTI, resolved Metabolic encephalopathy, resolved HTN Controlled Dementia with behavioral disturbance Restlessness and anxiety has increased. Will have psych reval. Continue seroquel 25mg TID Iron deficiency Anemia H/H trending down. Iron low. Feerous sulphate 325 mg daily. S/P Fall No trauma to the head. CT head negative X ray of the knees - No fracture. Fall precautions. Chest pain --troponins neg x 3 --ECG not suggestive of acute ischemic event --complaint of chest pain occurred during a period of high anxiety Dispo: Awaiting discharge planning and placement t
[2016-08-05] MEDS: FINASTERIDE 5 MG TABLET (FP) PO SCH (12:00)
[2016-08-05] MEDS: FERROUS SO4 325 MG TABLET (FP) PO SCH (12:00)
[2016-08-05] MEDS: ASCORBIC ACID 500 MG TABLET (FP) PO SCH (12:00)
[2016-08-05] MEDS: POLYETHYLENE GLYCOL 3350 119 GM BTL PO SCH (12:00)
[2016-08-05] MEDS: COLLAGENASE CLOSTRIDIUM HIST. 30 GRAMS TUBE TP SCH (12:00)
[2016-08-05] MEDS: POTASSIUM CHLORIDE TABS 20 MEQ TABLET.ER (FP) PO SCH (12:00)
[2016-08-05] MEDS: NEOMYCIN/POLYMYXIN/BACITRACIN (TRIPLE ANTIBIOTIC) 28 GM OINTMENT TP SCH ×2 (12:00→21:33)
[2016-08-05] MEDS: PANTOPRAZOLE 40 MG TABLET (FP) PO SCH (12:00)
[2016-08-05] MEDS: LACTOBACILLUS ACIDOPHILUS 1 EACH TAB (FP) PO SCH (12:00)
[2016-08-05] MEDS: NYSTATIN/TRIAMCINOLONE TOPICAL CREAM 15 GM TUBE TP SCH ×2 (12:00→21:33)
--- NOTE | 2016-08-05 12:48 | PN ---
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, Physician History of Present Illness: patient stable no new issues - Current Medication List Current Medications: Active Medications Acetaminophen (Tylenol -) 650 mg PO Q4H PRN PRN Reason: FEVER OR PAIN Last Admin: 08/01/16 07:08 Dose: 650 mg Ascorbic Acid (Vitamin C -) 500 mg PO DAILY [facility] Last Admin: 08/05/16 12:00 Dose: 500 mg Atorvastatin Calcium (Lipitor -) 10 mg PO HS [facility] Last Admin: 08/04/16 21:33 Dose: 10 mg Collagenase (Santyl -) 1 applic TP DAILY [facility] Last Admin: 08/04/16 09:23 Dose: 1 applic Ferrous Sulfate (Feosol -) 325 mg PO DAILY [facility] Last Admin: 08/05/16 12:00 Dose: 325 mg Finasteride (Proscar -) 5 mg PO DAILY [facility] Last Admin: 08/05/16 12:00 Dose: 5 mg Lactobacillus Acidophilus (Bacid -) 1 tab PO DAILY [facility] Last Admin: 08/05/16 12:00 Dose: 1 tab Neomycin/Polymyxin/Bacitracin (Neosporin Topical Ointment -) 1 applic TP BID [facility] Last Admin: 08/04/16 21:33 Dose: 1 applic Nystatin/Triamcinolone Acetonide (Mycolog Ii Cream -) 1 applic TP BID [facility] Last Admin: 08/04/16 21:33 Dose: 1 applic Pantoprazole Sodium (Protonix -) 40 mg PO DAILY [facility] Last Admin: 08/05/16 12:00 Dose: 40 mg Polyethylene Glycol (Miralax (For Daily Use) -) 17 gm PO DAILY [facility] Last Admin: 08/05/16 12:00 Dose: 17 grams Potassium Chloride (K-Dur -) 20 meq PO DAILY [facility] Last Admin: 08/05/16 12:00 Dose: 20 meq Quetiapine Fumarate (Seroquel -) 25 mg PO TID [facility] Last Admin: 08/05/16 06:14 Dose: 25 mg Tamsulosin HCl (Flomax -) 0.4 mg PO HS [facility] Last Admin: 08/04/16 21:32 Dose: 0.4 mg Trazodone HCl (Desyrel -) 37.5 mg PO HS [facility] Last Admin: 08/04/16 21:33 Dose: 37.5 mg - Objective Vital Signs: Vital Signs Temperature 98.6 F 08/04/16 16:00 Pulse Rate 60 08/04/16 22:00 Respiratory Rate 18 08/04/16 22:00 Blood Pressure 122/64 08/04/16 22:00 O2 Sat by Pulse Oximetry (%) 97 08/04/16 21:00 Constitutional: Yes: No Distress, Calm Cardiovascular: Yes: S1, S2 Respiratory: Yes: Regular Gastrointestinal: Yes: Normal Bowel Sounds, Soft Musculoskeletal: Yes: WNL Extremities: Yes: WNL Neurological: Yes: Alert, Oriented Labs: CBC, BMP 08/05/16 06:30 08/05/16 06:30 INR, PTT INR 1.18 (0.82-1.09) H 06/20/16 15:00 Assessment/Plan Problem List - Problems (1) Sepsis Code(s): A41.9 - SEPSIS, UNSPECIFIED ORGANISM Qualifiers: Sepsis type: sepsis due to unspecified organism Qualified Code(s): A41.9 - Sepsis, unspecified organism (2) UTI (urinary tract infection) Code(s): N39.0 - URINARY TRACT INFECTION, SITE NOT SPECIFIED Qualifiers: Urinary tract infection type: acute cystitis Hematuria presence: with hematuria Qualified Code(s): N30.01 - Acute cystitis with hematuria (3) Lactic acid acidosis Code(s): E87.2 - ACIDOSIS (4) Metabolic encephalopathy Code(s): G93.41 - METABOLIC ENCEPHALOPATHY (5) HTN (hypertension) Code(s): I10 - ESSENTIAL (PRIMARY) HYPERTENSION (6) Dementia Code(s): F03.90 - UNSPECIFIED DEMENTIA WITHOUT BEHAVIORAL DISTURBANCE 7 gram positive bacteremia 8 head aches plan doing better awaiting placement comfortable
--- NOTE | 2016-08-05 12:50 | PN ---
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 (short form) - Note 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: s: alert, denies any cp pain, sob dizzy, abd pain o: Vital Signs Period Temp Pulse Resp BP Sys/Kerr Pulse Ox Last 24 Hr 98.0 F-98.6 F 60-69 18-18 100-122/62-75 97 awake, nad jvd flat, neck supple ctabl, nl effort rrr, nl s1, s2 no mrg ext without e/c/c alert, appropriate no jaundice, diaphoresis Current Medications Generic Name Dose Route Start Last Admin Trade Name Freq PRN Reason Stop Dose Admin Acetaminophen 650 mg 06/12/16 10:27 08/01/16 07:08 Tylenol - PO 650 mg Q4H PRN Administration FEVER OR PAIN Ascorbic Acid 500 mg 06/11/16 10:00 08/05/16 12:00 Vitamin C - PO 500 mg DAILY [facility] Administration Atorvastatin Calcium 10 mg 06/10/16 22:00 08/04/16 21:33 Lipitor - PO 10 mg HS [facility] Administration Collagenase 1 applic 06/11/16 10:00 08/04/16 09:23 Santyl - TP 1 applic DAILY [facility] Administration Ferrous Sulfate 325 mg 08/05/16 10:00 08/05/16 12:00 Feosol - PO 325 mg DAILY [facility] Administration Finasteride 5 mg 06/11/16 10:00 08/05/16 12:00 Proscar - PO 5 mg DAILY [facility] Administration Lactobacillus Acidophilus 1 tab 06/11/16 10:00 08/05/16 12:00 Bacid - PO 1 tab DAILY [facility] Administration Neomycin/Polymyxin/Bacitracin 1 applic 06/27/16 22:00 08/04/16 21:33 Neosporin Topical Ointment - TP 1 applic BID [facility] Administration Nystatin/Triamcinolone Acetonide 1 applic 06/19/16 22:00 08/04/16 21:33 Mycolog Ii Cream - TP 1 applic BID [facility] Administration Pantoprazole Sodium 40 mg 06/11/16 10:00 08/05/16 12:00 Protonix - PO 40 mg DAILY [facility] Administration Polyethylene Glycol 17 gm 08/05/16 10:00 08/05/16 12:00 Miralax (For Daily Use) - PO 17 grams DAILY [facility] Administration Potassium Chloride 20 meq 06/27/16 10:00 08/05/16 12:00 K-Dur - PO 20 meq DAILY [facility] Administration Quetiapine Fumarate 25 mg 08/02/16 14:00 08/05/16 06:14 Seroquel - PO 25 mg TID [facility] Administration Tamsulosin HCl 0.4 mg 06/10/16 22:00 08/04/16 21:32 Flomax - PO 0.4 mg HS [facility] Administration Trazodone HCl 37.5 mg 06/10/16 22:00 08/04/16 21:33 Desyrel - PO 37.5 mg HS [facility] Administration CBC, BMP 08/05/16 06:30 08/05/16 06:30 a/p: 80 yo with h/o htn, bph, advanced dementia who sent to ER for hematuria and noted to have UTI with sepsis complicated by elevated cardiac enzymes. positive trops: - borderline trop elevation with flat trend and low ck index, not consistent with acs, likely related to demand in setting of infection and tachycardia. - started low dose atorvastatin while here - bp too low for bb (attempted here) - not on asa due to hematuria - echo done here this admit was non-diagnostic due to pt agitation/lack of cooperation - no significant chest pain symptoms-->poor historian but charts mention cp over weekend. CE's negx3 and repeat ecg 08/01/16 unremarkable, no further cp complaints -no further cardiac testing for now given his poor functional status/dementia and no significant cp htn - stable/low side, monitor bp off meds sepsis/uti/hematuria - resolved, off abx, hgb stable. social issues have delayed placement.
[2016-08-05] MEDS: traZODone HCL 50 MG TABLET (FP) PO SCH (21:29)
[2016-08-05] MEDS: TAMSULOSIN HCL 0.4 MG CAP.ER.24H (FP) PO SCH (21:30)
[2016-08-05] MEDS: ATORVASTATIN CA 10 MG TABLET (FP) PO SCH (21:31)
[2016-08-06] MEDS: QUEtiapine FUMARATE 25 MG TABLET (FP) PO SCH ×3 (05:26→22:25)
[2016-08-06 08:51] LABS: BASOPHIL 0.3 % (0-2.0); MCH 26.6 pg (25.7-33.7); MCHC 32.1 g/dl (32.0-35.9); MEAN CELL VOLUME 82.8 fl (80-96); MEAN PLT VOLUME 8.9 fl (7.5-11.1); NEUTROPHILS 75.7 % (42.8-82.8); PLATELET COUNT 197 K/MM3 (134-434); RDW 17.1 % (11.9-15.9); WHITE BLOOD COUNT 8.9 K/mm3 (4.0-10.0)
--- NOTE | 2016-08-06 08:57 | PN ---
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 (short form) - Note 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: Not agitated. Denies chest pain, shortness of breath, palpitation or dizziness. O/E Vital Signs Period Temp Pulse Resp BP Sys/Kerr Pulse Ox Last 24 Hr 97.8 F-98.4 F 70-97 16-18 124-154/65-93 97-98 Heart regular Lungs clear Abd soft Ext no edema Current Medications Acetaminophen (Tylenol -) 650 mg PO Q4H PRN PRN Reason: FEVER OR PAIN Last Admin: 08/01/16 07:08 Dose: 650 mg Ascorbic Acid (Vitamin C -) 500 mg PO DAILY [facility] Last Admin: 08/04/16 09:23 Dose: 500 mg Atorvastatin Calcium (Lipitor -) 10 mg PO HS [facility] Last Admin: 08/04/16 21:33 Dose: 10 mg Collagenase (Santyl -) 1 applic TP DAILY [facility] Last Admin: 08/04/16 09:23 Dose: 1 applic Ferrous Sulfate (Feosol -) 325 mg PO DAILY [facility] Finasteride (Proscar -) 5 mg PO DAILY [facility] Last Admin: 08/04/16 09:23 Dose: 5 mg Lactobacillus Acidophilus (Bacid -) 1 tab PO DAILY [facility] Last Admin: 08/04/16 09:23 Dose: 1 tab Neomycin/Polymyxin/Bacitracin (Neosporin Topical Ointment -) 1 applic TP BID [facility] Last Admin: 08/04/16 21:33 Dose: 1 applic Nystatin/Triamcinolone Acetonide (Mycolog Ii Cream -) 1 applic TP BID [facility] Last Admin: 08/04/16 21:33 Dose: 1 applic Pantoprazole Sodium (Protonix -) 40 mg PO DAILY [facility] Last Admin: 08/04/16 09:23 Dose: 40 mg Polyethylene Glycol (Miralax (For Daily Use) -) 17 gm PO DAILY [facility] Potassium Chloride (K-Dur -) 20 meq PO DAILY [facility] Last Admin: 08/04/16 09:23 Dose: 20 meq Quetiapine Fumarate (Seroquel -) 25 mg PO TID [facility] Last Admin: 08/05/16 06:14 Dose: 25 mg Tamsulosin HCl (Flomax -) 0.4 mg PO HS [facility] Last Admin: 08/04/16 21:32 Dose: 0.4 mg Trazodone HCl (Desyrel -) 37.5 mg PO HS [facility] Last Admin: 08/04/16 21:33 Dose: 37.5 mg CBC, BMP 08/06/16 08:30 A&P Assessment/Plan Headache, resolved Sepsis, resolved UTI, resolved Metabolic encephalopathy, resolved HTN Controlled Dementia with behavioral disturbance Restlessness and anxiety has increased. Will have psych reval. Continue seroquel 25mg TID Iron deficiency Anemia H/H trending down. Iron low. Ferrous sulphate 325 mg daily. Stool for occult blood S/P Fall No trauma to the head. CT head negative X ray of the knees - No fracture. Fall precautions. Chest pain --troponins neg x 3 --ECG not suggestive of acute ischemic event --complaint of chest pain occurred during a period of high anxiety Dispo: Awaiting discharge planning and placement t
[2016-08-06 09:04] LABS: ALBUMIN 2.5 g/dl (3.4-5.0); ANION GAP 9 (8-16); BILIRUBIN,TOTAL 0.5 mg/dL (0.2-1.0); CALCIUM 8.4 mg/dL (8.5-10.1); CO2 27 mmol/L (21-32); CREATININE 0.6 mg/dL (0.7-1.3); GLUCOSE,RANDOM 99 mg/dL (74-106); SGOT/AST 17 U/L (15-37); SGPT/ALT 22 U/L (12-78); TOT PROT 5.8 g/dl (6.4-8.2)
[2016-08-06 09:05] LABS: ALK PHOS 68 U/L (45-117)
[2016-08-06] MEDS ORDERED: PT OWN MED DRAWER 7, Y5N ONE (09:33)
[2016-08-06] MEDS: FERROUS SO4 325 MG TABLET (FP) PO SCH (09:43)
[2016-08-06] MEDS: LACTOBACILLUS ACIDOPHILUS 1 EACH TAB (FP) PO SCH (09:43)
[2016-08-06] MEDS: POTASSIUM CHLORIDE TABS 20 MEQ TABLET.ER (FP) PO SCH (09:43)
[2016-08-06] MEDS: POLYETHYLENE GLYCOL 3350 119 GM BTL PO SCH (09:43)
[2016-08-06] MEDS: FINASTERIDE 5 MG TABLET (FP) PO SCH (09:44)
[2016-08-06] MEDS: ASCORBIC ACID 500 MG TABLET (FP) PO SCH (09:44)
[2016-08-06] MEDS: PANTOPRAZOLE 40 MG TABLET (FP) PO SCH (09:44)
[2016-08-06] MEDS: NYSTATIN/TRIAMCINOLONE TOPICAL CREAM 15 GM TUBE TP SCH ×2 (09:44→22:26)
[2016-08-06] MEDS: NEOMYCIN/POLYMYXIN/BACITRACIN (TRIPLE ANTIBIOTIC) 28 GM OINTMENT TP SCH ×2 (09:45→22:26)
[2016-08-06] MEDS: COLLAGENASE CLOSTRIDIUM HIST. 30 GRAMS TUBE TP SCH (09:45)
--- NOTE | 2016-08-06 10:51 | PN ---
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 (short form) - Note 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: s: alert, denies any cp pain, sob dizzy, abd pain o: Vital Signs Period Temp Pulse Resp BP Sys/Kerr Pulse Ox Last 24 Hr 97.8 F-98.4 F 73-97 16-18 124-154/68-93 98 awake, nad jvd flat, neck supple ctabl, nl effort rrr, nl s1, s2 no mrg ext without e/c/c alert, appropriate no jaundice, diaphoresis Current Medications Generic Name Dose Route Start Last Admin Trade Name Freq PRN Reason Stop Dose Admin Acetaminophen 650 mg 06/12/16 10:27 08/01/16 07:08 Tylenol - PO 650 mg Q4H PRN Administration FEVER OR PAIN Ascorbic Acid 500 mg 06/11/16 10:00 08/06/16 09:44 Vitamin C - PO 500 mg DAILY [facility] Administration Atorvastatin Calcium 10 mg 06/10/16 22:00 08/05/16 21:31 Lipitor - PO 10 mg HS [facility] Administration Collagenase 1 applic 06/11/16 10:00 08/06/16 09:45 Santyl - TP 1 applic DAILY [facility] Administration Ferrous Sulfate 325 mg 08/05/16 10:00 08/06/16 09:43 Feosol - PO 325 mg DAILY [facility] Administration Finasteride 5 mg 06/11/16 10:00 08/06/16 09:44 Proscar - PO 5 mg DAILY [facility] Administration Lactobacillus Acidophilus 1 tab 06/11/16 10:00 08/06/16 09:43 Bacid - PO 1 tab DAILY [facility] Administration Neomycin/Polymyxin/Bacitracin 1 applic 06/27/16 22:00 08/06/16 09:45 Neosporin Topical Ointment - TP 1 applic BID [facility] Administration Nystatin/Triamcinolone Acetonide 1 applic 06/19/16 22:00 08/06/16 09:44 Mycolog Ii Cream - TP 1 applic BID [facility] Administration Pantoprazole Sodium 40 mg 06/11/16 10:00 08/06/16 09:44 Protonix - PO 40 mg DAILY [facility] Administration Polyethylene Glycol 17 gm 08/05/16 10:00 08/06/16 09:43 Miralax (For Daily Use) - PO 17 grams DAILY [facility] Administration Potassium Chloride 20 meq 06/27/16 10:00 08/06/16 09:43 K-Dur - PO 20 meq DAILY [facility] Administration Quetiapine Fumarate 25 mg 08/02/16 14:00 08/06/16 05:26 Seroquel - PO 25 mg TID [facility] Administration Tamsulosin HCl 0.4 mg 06/10/16 22:00 08/05/16 21:30 Flomax - PO 0.4 mg HS [facility] Administration Trazodone HCl 37.5 mg 06/10/16 22:00 08/05/16 21:29 Desyrel - PO 37.5 mg HS [facility] Administration CBC, BMP 08/06/16 08:30 08/06/16 08:30 a/p: 80 yo with h/o htn, bph, advanced dementia who sent to ER for hematuria and noted to have UTI with sepsis complicated by elevated cardiac enzymes. positive trops: - borderline trop elevation with flat trend and low ck index, not consistent with acs, likely related to demand in setting of infection and tachycardia. - started low dose atorvastatin while here - bp too low for bb (attempted here) - not on asa due to hematuria - echo done here this admit was non-diagnostic due to pt agitation/lack of cooperation - no significant chest pain symptoms-->poor historian but charts mention cp over weekend. CE's negx3 and repeat ecg 08/01/16 unremarkable, no further cp complaints -no further cardiac testing for now given his poor functional status/dementia and no significant cp htn - stable, monitor bp off meds for now as he was hypotensive previously when on BB here sepsis/uti/hematuria - resolved, off abx, hgb stable. social issues have delayed placement.
--- NOTE | 2016-08-06 16:13 | PN ---
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, Physician History of Present Illness: stable no issues - Current Medication List Current Medications: Active Medications Acetaminophen (Tylenol -) 650 mg PO Q4H PRN PRN Reason: FEVER OR PAIN Last Admin: 08/01/16 07:08 Dose: 650 mg Ascorbic Acid (Vitamin C -) 500 mg PO DAILY [facility] Last Admin: 08/06/16 09:44 Dose: 500 mg Atorvastatin Calcium (Lipitor -) 10 mg PO HS [facility] Last Admin: 08/05/16 21:31 Dose: 10 mg Collagenase (Santyl -) 1 applic TP DAILY [facility] Last Admin: 08/06/16 09:45 Dose: 1 applic Ferrous Sulfate (Feosol -) 325 mg PO DAILY [facility] Last Admin: 08/06/16 09:43 Dose: 325 mg Finasteride (Proscar -) 5 mg PO DAILY [facility] Last Admin: 08/06/16 09:44 Dose: 5 mg Lactobacillus Acidophilus (Bacid -) 1 tab PO DAILY [facility] Last Admin: 08/06/16 09:43 Dose: 1 tab Neomycin/Polymyxin/Bacitracin (Neosporin Topical Ointment -) 1 applic TP BID [facility] Last Admin: 08/06/16 09:45 Dose: 1 applic Nystatin/Triamcinolone Acetonide (Mycolog Ii Cream -) 1 applic TP BID [facility] Last Admin: 08/06/16 09:44 Dose: 1 applic Pantoprazole Sodium (Protonix -) 40 mg PO DAILY [facility] Last Admin: 08/06/16 09:44 Dose: 40 mg Polyethylene Glycol (Miralax (For Daily Use) -) 17 gm PO DAILY [facility] Last Admin: 08/06/16 09:43 Dose: 17 grams Potassium Chloride (K-Dur -) 20 meq PO DAILY [facility] Last Admin: 08/06/16 09:43 Dose: 20 meq Quetiapine Fumarate (Seroquel -) 25 mg PO TID [facility] Last Admin: 08/06/16 14:30 Dose: 25 mg Tamsulosin HCl (Flomax -) 0.4 mg PO HS [facility] Last Admin: 08/05/16 21:30 Dose: 0.4 mg Trazodone HCl (Desyrel -) 37.5 mg PO HS [facility] Last Admin: 08/05/16 21:29 Dose: 37.5 mg - Objective Vital Signs: Vital Signs Temperature 98.4 F 08/06/16 14:13 Pulse Rate 98 H 06/29/17 14:13 Respiratory Rate 16 08/06/16 14:13 Blood Pressure 100/72 08/06/16 14:13 O2 Sat by Pulse Oximetry (%) 98 08/05/16 21:00 Constitutional: Yes: No Distress, Calm Cardiovascular: Yes: S1, S2 Respiratory: Yes: Regular, CTA Bilaterally Gastrointestinal: Yes: Normal Bowel Sounds, Soft Musculoskeletal: Yes: WNL Extremities: Yes: WNL Neurological: Yes: Alert, Other Psychiatric: Yes: Other Labs: CBC, BMP 08/06/16 08:30 08/06/16 08:30 INR, PTT INR 1.18 (0.82-1.09) H 06/20/16 15:00 Assessment/Plan Problem List - Problems (1) Sepsis Code(s): A41.9 - SEPSIS, UNSPECIFIED ORGANISM Qualifiers: Sepsis type: sepsis due to unspecified organism Qualified Code(s): A41.9 - Sepsis, unspecified organism (2) UTI (urinary tract infection) Code(s): N39.0 - URINARY TRACT INFECTION, SITE NOT SPECIFIED Qualifiers: Urinary tract infection type: acute cystitis Hematuria presence: with hematuria Qualified Code(s): N30.01 - Acute cystitis with hematuria (3) Lactic acid acidosis Code(s): E87.2 - ACIDOSIS (4) Metabolic encephalopathy Code(s): G93.41 - METABOLIC ENCEPHALOPATHY (5) HTN (hypertension) Code(s): I10 - ESSENTIAL (PRIMARY) HYPERTENSION (6) Dementia Code(s): F03.90 - UNSPECIFIED DEMENTIA WITHOUT BEHAVIORAL DISTURBANCE 7 gram positive bacteremia 8 head aches plan doing better awaiting placement comfortable
[2016-08-06] MEDS: TAMSULOSIN HCL 0.4 MG CAP.ER.24H (FP) PO SCH (22:25)
[2016-08-06] MEDS: traZODone HCL 50 MG TABLET (FP) PO SCH (22:25)
[2016-08-06] MEDS: ATORVASTATIN CA 10 MG TABLET (FP) PO SCH (22:25)
[2016-08-07] MEDS: QUEtiapine FUMARATE 25 MG TABLET (FP) PO SCH ×3 (06:08→21:28)
[2016-08-07] MEDS ORDERED: PT OWN MED DRAWER 7, Y5N ONE (10:51)
[2016-08-07] MEDS: LACTOBACILLUS ACIDOPHILUS 1 EACH TAB (FP) PO SCH (10:54)
[2016-08-07] MEDS: POTASSIUM CHLORIDE TABS 20 MEQ TABLET.ER (FP) PO SCH (10:55)
[2016-08-07] MEDS: FERROUS SO4 325 MG TABLET (FP) PO SCH (10:55)
[2016-08-07] MEDS: NYSTATIN/TRIAMCINOLONE TOPICAL CREAM 15 GM TUBE TP SCH ×2 (10:56→21:29)
[2016-08-07] MEDS: ASCORBIC ACID 500 MG TABLET (FP) PO SCH (10:56)
[2016-08-07] MEDS: FINASTERIDE 5 MG TABLET (FP) PO SCH (10:56)
[2016-08-07] MEDS: PANTOPRAZOLE 40 MG TABLET (FP) PO SCH (10:56)
[2016-08-07] MEDS: POLYETHYLENE GLYCOL 3350 119 GM BTL PO SCH (10:56)
[2016-08-07] MEDS: COLLAGENASE CLOSTRIDIUM HIST. 30 GRAMS TUBE TP SCH (10:57)
[2016-08-07] MEDS: NEOMYCIN/POLYMYXIN/BACITRACIN (TRIPLE ANTIBIOTIC) 28 GM OINTMENT TP SCH ×2 (10:57→21:29)
--- NOTE | 2016-08-07 13:25 | PN ---
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, Physician History of Present Illness: no new events status quo - Current Medication List Current Medications: Active Medications Acetaminophen (Tylenol -) 650 mg PO Q4H PRN PRN Reason: FEVER OR PAIN Last Admin: 08/01/16 07:08 Dose: 650 mg Ascorbic Acid (Vitamin C -) 500 mg PO DAILY [facility] Last Admin: 08/07/16 10:56 Dose: 500 mg Atorvastatin Calcium (Lipitor -) 10 mg PO HS [facility] Last Admin: 08/06/16 22:25 Dose: 10 mg Collagenase (Santyl -) 1 applic TP DAILY [facility] Last Admin: 08/07/16 10:57 Dose: 1 applic Ferrous Sulfate (Feosol -) 325 mg PO DAILY [facility] Last Admin: 08/07/16 10:55 Dose: 325 mg Finasteride (Proscar -) 5 mg PO DAILY [facility] Last Admin: 08/07/16 10:56 Dose: 5 mg Lactobacillus Acidophilus (Bacid -) 1 tab PO DAILY [facility] Last Admin: 08/07/16 10:54 Dose: 1 tab Neomycin/Polymyxin/Bacitracin (Neosporin Topical Ointment -) 1 applic TP BID [facility] Last Admin: 08/07/16 10:57 Dose: 1 applic Nystatin/Triamcinolone Acetonide (Mycolog Ii Cream -) 1 applic TP BID [facility] Last Admin: 08/07/16 10:56 Dose: 1 applic Pantoprazole Sodium (Protonix -) 40 mg PO DAILY [facility] Last Admin: 08/07/16 10:56 Dose: 40 mg Polyethylene Glycol (Miralax (For Daily Use) -) 17 gm PO DAILY [facility] Last Admin: 08/07/16 10:56 Dose: 17 grams Potassium Chloride (K-Dur -) 20 meq PO DAILY [facility] Last Admin: 08/07/16 10:55 Dose: 20 meq Quetiapine Fumarate (Seroquel -) 25 mg PO TID [facility] Last Admin: 08/07/16 06:08 Dose: 25 mg Tamsulosin HCl (Flomax -) 0.4 mg PO HS [facility] Last Admin: 08/06/16 22:25 Dose: 0.4 mg Trazodone HCl (Desyrel -) 37.5 mg PO HS [facility] Last Admin: 08/06/16 22:25 Dose: 37.5 mg - Objective Vital Signs: Vital Signs Temperature 98.5 F 08/07/16 09:20 Pulse Rate 69 08/07/16 09:20 Respiratory Rate 18 08/07/16 09:20 Blood Pressure 105/53 08/07/16 09:20 O2 Sat by Pulse Oximetry (%) 98 08/06/16 21:00 Constitutional: Yes: No Distress, Calm Cardiovascular: Yes: S1, S2 Respiratory: Yes: Regular, CTA Bilaterally Gastrointestinal: Yes: Normal Bowel Sounds, Soft Musculoskeletal: Yes: WNL Extremities: Yes: WNL Neurological: Yes: Alert, Other Psychiatric: Yes: Alert, Other Labs: CBC, BMP 08/06/16 08:30 08/06/16 08:30 INR, PTT INR 1.18 (0.82-1.09) H 06/20/16 15:00 Assessment/Plan Problem List - Problems (1) Sepsis Code(s): A41.9 - SEPSIS, UNSPECIFIED ORGANISM Qualifiers: Sepsis type: sepsis due to unspecified organism Qualified Code(s): A41.9 - Sepsis, unspecified organism (2) UTI (urinary tract infection) Code(s): N39.0 - URINARY TRACT INFECTION, SITE NOT SPECIFIED Qualifiers: Urinary tract infection type: acute cystitis Hematuria presence: with hematuria Qualified Code(s): N30.01 - Acute cystitis with hematuria (3) Lactic acid acidosis Code(s): E87.2 - ACIDOSIS (4) Metabolic encephalopathy Code(s): G93.41 - METABOLIC ENCEPHALOPATHY (5) HTN (hypertension) Code(s): I10 - ESSENTIAL (PRIMARY) HYPERTENSION (6) Dementia Code(s): F03.90 - UNSPECIFIED DEMENTIA WITHOUT BEHAVIORAL DISTURBANCE 7 gram positive bacteremia 8 head aches plan no issues awaiting placement
--- NOTE | 2016-08-07 13:26 | PN ---
Progress Note (short form) - Note Progress Note: No acute event overnight. Denies chest pain, shortness of breath, palpitation or dizziness. O/E Vital Signs Period Temp Pulse Resp BP Sys/Kerr Pulse Ox Last 24 Hr 97.8 F-98.5 F 66-98 16-18 100-140/53-82 98 Heart regular Lungs clear Abd soft Ext no edema Current Medications Acetaminophen (Tylenol -) 650 mg PO Q4H PRN PRN Reason: FEVER OR PAIN Last Admin: 08/01/16 07:08 Dose: 650 mg Ascorbic Acid (Vitamin C -) 500 mg PO DAILY [facility] Last Admin: 08/07/16 10:56 Dose: 500 mg Atorvastatin Calcium (Lipitor -) 10 mg PO HS [facility] Last Admin: 08/06/16 22:25 Dose: 10 mg Collagenase (Santyl -) 1 applic TP DAILY [facility] Last Admin: 08/07/16 10:57 Dose: 1 applic Ferrous Sulfate (Feosol -) 325 mg PO DAILY [facility] Last Admin: 08/07/16 10:55 Dose: 325 mg Finasteride (Proscar -) 5 mg PO DAILY [facility] Last Admin: 08/07/16 10:56 Dose: 5 mg Lactobacillus Acidophilus (Bacid -) 1 tab PO DAILY [facility] Last Admin: 08/07/16 10:54 Dose: 1 tab Neomycin/Polymyxin/Bacitracin (Neosporin Topical Ointment -) 1 applic TP BID [facility] Last Admin: 08/07/16 10:57 Dose: 1 applic Nystatin/Triamcinolone Acetonide (Mycolog Ii Cream -) 1 applic TP BID [facility] Last Admin: 08/07/16 10:56 Dose: 1 applic Pantoprazole Sodium (Protonix -) 40 mg PO DAILY [facility] Last Admin: 08/07/16 10:56 Dose: 40 mg Polyethylene Glycol (Miralax (For Daily Use) -) 17 gm PO DAILY [facility] Last Admin: 08/07/16 10:56 Dose: 17 grams Potassium Chloride (K-Dur -) 20 meq PO DAILY [facility] Last Admin: 08/07/16 10:55 Dose: 20 meq Quetiapine Fumarate (Seroquel -) 25 mg PO TID [facility] Last Admin: 08/07/16 06:08 Dose: 25 mg Tamsulosin HCl (Flomax -) 0.4 mg PO HS [facility] Last Admin: 08/06/16 22:25 Dose: 0.4 mg Trazodone HCl (Desyrel -) 37.5 mg PO HS [facility] Last Admin: 08/06/16 22:25 Dose: 37.5 mg CBC, BMP 08/06/16 08:30 08/06/16 08:30 Assessment/Plan Headache, resolved Sepsis, resolved UTI, resolved Metabolic encephalopathy, resolved HTN Controlled Dementia with behavioral disturbance Restlessness and anxiety has increased. Psych consulted - Recommended continuing seroquel 25mg TID. 12.5 mg prn. Iron deficiency Anemia H/H trending down. Iron low. Ferrous sulphate 325 mg daily. Stool for occult blood - still pending. S/P Fall No trauma to the head. CT head negative X ray of the knees - No fracture. Fall precautions. Chest pain --troponins neg x 3 --ECG not suggestive of acute ischemic event --complaint of chest pain occurred during a period of high anxiety Patient is stable to be discharged back to the [place].
--- NOTE | 2016-08-07 13:28 | DS ---
Physical Examination Vital Signs: Vital Signs Temperature 98.5 F 08/07/16 09:20 Pulse Rate 69 08/07/16 09:20 Respiratory Rate 18 08/07/16 09:20 Blood Pressure 105/53 08/07/16 09:20 O2 Sat by Pulse Oximetry (%) 98 08/06/16 21:00 Constitutional: Yes: No Distress, Calm Eyes: Yes: Conjunctiva Clear, EOM Intact, PERRL HENT: Yes: Atraumatic, Normocephalic Neck: Yes: Supple, Trachea Midline Cardiovascular: Yes: Regular Rate and Rhythm, S1, S2 Respiratory: Yes: Regular, CTA Bilaterally Gastrointestinal: Yes: Normal Bowel Sounds, Soft ...Rectal Exam: Yes: Deferred Musculoskeletal: Yes: WNL Extremities: Yes: WNL Edema: No Peripheral Pulses WNL: No Neurological: Yes: Alert ...Motor Strength: WNL Psychiatric: Yes: Alert, Oriented Labs: CBC, BMP 08/06/16 08:30 08/06/16 08:30 Discharge Summary Reason For Visit: UTI,SEPSIS Current Active Problems Dementia (Acute) HTN (hypertension) (Acute) Headache (Acute) Hypokalemia (Acute) Lactic acid acidosis (Acute) Metabolic encephalopathy (Acute) Sepsis (Acute) UTI (urinary tract infection) (Acute) Hospital Course: Headache, resolved Sepsis, resolved UTI, resolved Metabolic encephalopathy, resolved HTN Controlled Dementia with behavioral disturbance Restlessness and anxiety has increased. Psych consulted - Recommended continuing seroquel 25mg TID. 12.5 mg prn. Iron deficiency Anemia H/H trending down. Iron low. Ferrous sulphate 325 mg daily. Stool for occult blood - still pending. S/P Fall No trauma to the head. CT head negative X ray of the knees - No fracture. Fall precautions. Chest pain --troponins neg x 3 --ECG not suggestive of acute ischemic event --complaint of chest pain occurred during a period of high anxiety Patient is stable to be discharged back to the [place]. Condition: Stable - Instructions Diet, Activity, Other Instructions: pureed diet. dietary supplementation with meals. up with assistance, further activity per SNF. Ampicillin for 7 more days, outpatient ECHO within 7 days. Referrals: Jessica Briceño MD [Staff Physician] - Bhavesh Escalante MD [Primary Care Provider] - Disposition: [facility]ILITY - Home Medications Comprehensive Discharge Medication List: Ambulatory Orders Aa/Hydrolyzed Collagen, Whey [Lps Neutral Flavor Liquid] 30 ml PO TID 06/10/16 Acetaminophen 2 tab PO DAILY PRN 06/10/16 Ascorbic Acid [Vitamin C -] 1 tab PO DAILY 06/10/16 Collagenase Clostridium Hist. [Santyl] 1 applic TP DAILY 06/10/16 Dronabinol [Marinol] 1 tab PO BID 06/10/16 Finasteride 1 tab PO DAILY 06/10/16 Lorazepam [Ativan] 1 tab PO HS 06/10/16 Menthol/Zinc Oxide [Calmoseptine Ointment] 1 applic TP TID 06/10/16 Metoprolol Succinate [Toprol Xl] 1 tab PO DAILY 06/10/16 Multivitamin with Minerals [Icaps Plus] 1 tab PO DAILY 06/10/16 Omeprazole 2 tab PO DAILY 06/10/16 Tamsulosin HCl 1 tab PO HS 06/10/16 Tramadol HCl 1 tab PO Q4H PRN 06/10/16 Tramadol HCl [Tramadol HCl ER] 100 mg PO DAILY 06/10/16 Trazodone HCl 37.5 mg PO HS 06/10/16 Lactobacillus Acidophilus [Bacid -] 1 tab PO DAILY tab 06/18/16 Magnesium Oxide [Mag-Ox -] 400 mg PO BID tablet 06/18/16 Ampicillin Trihydrate [Ampicillin Trihydrate Capsule] 500 mg PO Q8H 7 Days 06/19
[2016-08-07] MEDS: traZODone HCL 50 MG TABLET (FP) PO SCH (21:27)
[2016-08-07] MEDS: TAMSULOSIN HCL 0.4 MG CAP.ER.24H (FP) PO SCH (21:28)
[2016-08-07] MEDS: ATORVASTATIN CA 10 MG TABLET (FP) PO SCH (21:28)
[2016-08-08] MEDS: QUEtiapine FUMARATE 25 MG TABLET (FP) PO SCH ×3 (06:05→21:11)
--- NOTE | 2016-08-08 07:16 | PN ---
Progress Note (short form) - Note Progress Note: PATIENT AWAITING TRANSFER TO SNF . RESTING IN BED / NO DISTRESS. P/E <> AWAKE / IN NO DISTRESS. HEENT <> NECK SUPPLE / CAROTIDS 2 + COR <> S 1 S 2 CHEST <> CLEAR P & A ABD <> SOFT / NONTENDER EXT : NO CALF TENDERNESS. IMP: UTI / ENTEROCOCCUS<> RESOLVED ENTEROCOCCUS SEPSIS <> RESOLVED DEMENTIA NSTEMI PLAN : AWAITING SNF <> POSSIBLY TODAY . CONTINUE SAME MEDS. Selected Entries 08/08/16 06:01 Temperature 97.8 F Pulse Rate 69 Respiratory 20 Rate Blood Pressure 126/76 Laboratory Tests 06/20/16 08/06/16 08/06/16 15:00 08:30 08:30 WBC 8.9 RBC 3.59 L Hgb 9.5 L Hct 29.8 L Plt Count 197 INR 1.18 H PTT (Actin FS) 32.1 Sodium 140 Potassium 3.7 Chloride 104 Carbon Dioxide 27 Anion Gap 9 BUN 23 H Creatinine 0.6 L Creat Clearance w eGFR > 60 Random Glucose 99 D Calcium 8.4 L Total Bilirubin 0.5 AST 17 ALT 22 Alkaline Phosphatase 68 Total Protein 5.8 L Albumin 2.5 L
[2016-08-08] MEDS: ASCORBIC ACID 500 MG TABLET (FP) PO SCH (09:43)
[2016-08-08] MEDS: FERROUS SO4 325 MG TABLET (FP) PO SCH (09:43)
[2016-08-08] MEDS: NEOMYCIN/POLYMYXIN/BACITRACIN (TRIPLE ANTIBIOTIC) 28 GM OINTMENT TP SCH ×2 (09:44→21:11)
[2016-08-08] MEDS: PANTOPRAZOLE 40 MG TABLET (FP) PO SCH (09:44)
[2016-08-08] MEDS: FINASTERIDE 5 MG TABLET (FP) PO SCH (09:44)
[2016-08-08] MEDS: LACTOBACILLUS ACIDOPHILUS 1 EACH TAB (FP) PO SCH (09:44)
[2016-08-08] MEDS: POLYETHYLENE GLYCOL 3350 119 GM BTL PO SCH (09:45)
[2016-08-08] MEDS: NYSTATIN/TRIAMCINOLONE TOPICAL CREAM 15 GM TUBE TP SCH ×2 (15:15→21:10)
[2016-08-08] MEDS: COLLAGENASE CLOSTRIDIUM HIST. 30 GRAMS TUBE TP SCH (15:15)
--- NOTE | 2016-08-08 16:22 | PN ---
Progress Note, Physician History of Present Illness: stable no issues - Current Medication List Current Medications: Active Medications Acetaminophen (Tylenol -) 650 mg PO Q4H PRN PRN Reason: FEVER OR PAIN Last Admin: 08/01/16 07:08 Dose: 650 mg Ascorbic Acid (Vitamin C -) 500 mg PO DAILY [facility] Last Admin: 08/08/16 09:43 Dose: 500 mg Atorvastatin Calcium (Lipitor -) 10 mg PO HS [facility] Last Admin: 08/07/16 21:28 Dose: 10 mg Collagenase (Santyl -) 1 applic TP DAILY [facility] Last Admin: 08/08/16 15:15 Dose: 1 applic Ferrous Sulfate (Feosol -) 325 mg PO DAILY [facility] Last Admin: 08/08/16 09:43 Dose: 325 mg Finasteride (Proscar -) 5 mg PO DAILY [facility] Last Admin: 08/08/16 09:44 Dose: 5 mg Lactobacillus Acidophilus (Bacid -) 1 tab PO DAILY [facility] Last Admin: 08/08/16 09:44 Dose: 1 tab Neomycin/Polymyxin/Bacitracin (Neosporin Topical Ointment -) 1 applic TP BID [facility] Last Admin: 08/08/16 09:44 Dose: 1 applic Nystatin/Triamcinolone Acetonide (Mycolog Ii Cream -) 1 applic TP BID [facility] Last Admin: 08/08/16 15:15 Dose: 1 applic Pantoprazole Sodium (Protonix -) 40 mg PO DAILY [facility] Last Admin: 08/08/16 09:44 Dose: 40 mg Polyethylene Glycol (Miralax (For Daily Use) -) 17 gm PO DAILY [facility] Last Admin: 08/08/16 09:45 Dose: Not Given Quetiapine Fumarate (Seroquel -) 25 mg PO TID [facility] Last Admin: 08/08/16 15:15 Dose: 25 mg Tamsulosin HCl (Flomax -) 0.4 mg PO HS [facility] Last Admin: 08/07/16 21:28 Dose: 0.4 mg Trazodone HCl (Desyrel -) 37.5 mg PO HS [facility] Last Admin: 08/07/16 21:27 Dose: 37.5 mg - Objective Vital Signs: Vital Signs Temperature 98.4 F 08/08/16 14:21 Pulse Rate 91 H 08/08/16 14:21 Respiratory Rate 16 08/08/16 14:21 Blood Pressure 111/78 08/08/16 14:21 O2 Sat by Pulse Oximetry (%) 98 08/08/16 09:00 Constitutional: Yes: No Distress, Calm HENT: Yes: Atraumatic Cardiovascular: Yes: S1, S2 Respiratory: Yes: Regular, CTA Bilaterally Gastrointestinal: Yes: Normal Bowel Sounds, Soft Musculoskeletal: Yes: WNL Extremities: Yes: WNL Neurological: Yes: Alert, Oriented Labs: CBC, BMP 08/06/16 08:30 08/06/16 08:30 INR, PTT INR 1.18 (0.82-1.09) H 06/20/16 15:00 Assessment/Plan Problem List - Problems (1) Sepsis Code(s): A41.9 - SEPSIS, UNSPECIFIED ORGANISM Qualifiers: Sepsis type: sepsis due to unspecified organism Qualified Code(s): A41.9 - Sepsis, unspecified organism (2) UTI (urinary tract infection) Code(s): N39.0 - URINARY TRACT INFECTION, SITE NOT SPECIFIED Qualifiers: Urinary tract infection type: acute cystitis Hematuria presence: with hematuria Qualified Code(s): N30.01 - Acute cystitis with hematuria (3) Lactic acid acidosis Code(s): E87.2 - ACIDOSIS (4) Metabolic encephalopathy Code(s): G93.41 - METABOLIC ENCEPHALOPATHY (5) HTN (hypertension) Code(s): I10 - ESSENTIAL (PRIMARY) HYPERTENSION (6) Dementia Code(s): F03.90 - UNSPECIFIED DEMENTIA WITHOUT BEHAVIORAL DISTURBANCE 7 gram positive bacteremia 8 head aches plan no issues awaiting placement
[2016-08-08] MEDS: ACETAMINOPHEN 325 MG TABLET (FP) PO PRN (17:18)
[2016-08-08] MEDS: traZODone HCL 50 MG TABLET (FP) PO SCH (21:10)
[2016-08-08] MEDS: ATORVASTATIN CA 10 MG TABLET (FP) PO SCH (21:10)
[2016-08-08] MEDS: TAMSULOSIN HCL 0.4 MG CAP.ER.24H (FP) PO SCH (21:10)
[2016-08-09] MEDS: QUEtiapine FUMARATE 25 MG TABLET (FP) PO SCH ×2 (06:01→14:01)
--- NOTE | 2016-08-09 09:19 | PN ---
Progress Note (short form) - Note Progress Note: PATIENT IN NO DISTRESS / AWAITING TRANSFER TO SNF . SElected Entries 08/09/16 09:00 Temperature 97.2 F L Pulse Rate 66 Respiratory 18 Rate Blood Pressure 110/58 P/E <> AWAKE / IN NO DISTRESS. HEENT <> NECK SUPPLE / CAROTIDS 2 + COR <> S 1 S 2 CHEST <> CLEAR P & A ABD <> SOFT / NONTENDER EXT : NO CALF TENDERNESS. IMP: UTI / ENTEROCOCCUS<> RESOLVED ENTEROCOCCUS SEPSIS <> RESOLVED DEMENTIA NSTEMI PLAN : SNF TRANSFER PENDING. CONTINUE SAME MEDS.
[2016-08-09] MEDS: LACTOBACILLUS ACIDOPHILUS 1 EACH TAB (FP) PO SCH (12:56)
[2016-08-09] MEDS: PANTOPRAZOLE 40 MG TABLET (FP) PO SCH (12:57)
[2016-08-09] MEDS: FINASTERIDE 5 MG TABLET (FP) PO SCH (12:57)
[2016-08-09] MEDS: FERROUS SO4 325 MG TABLET (FP) PO SCH (12:57)
[2016-08-09] MEDS: ASCORBIC ACID 500 MG TABLET (FP) PO SCH (12:57)
[2016-08-09] MEDS: ACETAMINOPHEN 325 MG TABLET (FP) PO PRN (12:57)
[2016-08-09] MEDS: POLYETHYLENE GLYCOL 3350 119 GM BTL PO SCH (12:58)
--- NOTE | 2016-08-09 16:01 | PN ---
Progress Note, Physician History of Present Illness: stable no issues - Current Medication List Current Medications: Active Medications Acetaminophen (Tylenol -) 650 mg PO Q4H PRN PRN Reason: FEVER OR PAIN Last Admin: 08/09/16 12:57 Dose: 650 mg Ascorbic Acid (Vitamin C -) 500 mg PO DAILY [facility] Last Admin: 08/09/16 12:57 Dose: 500 mg Atorvastatin Calcium (Lipitor -) 10 mg PO HS [facility] Last Admin: 08/08/16 21:10 Dose: 10 mg Collagenase (Santyl -) 1 applic TP DAILY [facility] Last Admin: 08/08/16 15:15 Dose: 1 applic Ferrous Sulfate (Feosol -) 325 mg PO DAILY [facility] Last Admin: 08/09/16 12:57 Dose: 325 mg Finasteride (Proscar -) 5 mg PO DAILY [facility] Last Admin: 08/09/16 12:57 Dose: 5 mg Lactobacillus Acidophilus (Bacid -) 1 tab PO DAILY [facility] Last Admin: 08/09/16 12:56 Dose: 1 tab Neomycin/Polymyxin/Bacitracin (Neosporin Topical Ointment -) 1 applic TP BID [facility] Last Admin: 08/08/16 21:11 Dose: 1 applic Nystatin/Triamcinolone Acetonide (Mycolog Ii Cream -) 1 applic TP BID [facility] Last Admin: 08/08/16 21:10 Dose: 1 applic Pantoprazole Sodium (Protonix -) 40 mg PO DAILY [facility] Last Admin: 08/09/16 12:57 Dose: 40 mg Polyethylene Glycol (Miralax (For Daily Use) -) 17 gm PO DAILY [facility] Last Admin: 08/09/16 12:58 Dose: Not Given Quetiapine Fumarate (Seroquel -) 25 mg PO TID [facility] Last Admin: 08/09/16 14:01 Dose: 25 mg Tamsulosin HCl (Flomax -) 0.4 mg PO HS [facility] Last Admin: 08/08/16 21:10 Dose: 0.4 mg Trazodone HCl (Desyrel -) 37.5 mg PO HS [facility] Last Admin: 08/08/16 21:10 Dose: 37.5 mg - Objective Vital Signs: Vital Signs Temperature 97.2 F L 08/09/16 09:00 Pulse Rate 66 08/09/16 09:00 Respiratory Rate 18 08/09/16 09:00 Blood Pressure 110/58 08/09/16 09:00 O2 Sat by Pulse Oximetry (%) 98 08/09/16 09:00 Constitutional: Yes: No Distress, Calm Neck: Yes: Supple Cardiovascular: Yes: S1, S2 Respiratory: Yes: Regular, CTA Bilaterally Gastrointestinal: Yes: Normal Bowel Sounds, Soft Musculoskeletal: Yes: WNL Extremities: Yes: WNL Labs: CBC, BMP 08/06/16 08:30 08/06/16 08:30 INR, PTT INR 1.18 (0.82-1.09) H 06/20/16 15:00 Assessment/Plan Problem List - Problems (1) Sepsis Code(s): A41.9 - SEPSIS, UNSPECIFIED ORGANISM Qualifiers: Sepsis type: sepsis due to unspecified organism Qualified Code(s): A41.9 - Sepsis, unspecified organism (2) UTI (urinary tract infection) Code(s): N39.0 - URINARY TRACT INFECTION, SITE NOT SPECIFIED Qualifiers: Urinary tract infection type: acute cystitis Hematuria presence: with hematuria Qualified Code(s): N30.01 - Acute cystitis with hematuria (3) Lactic acid acidosis Code(s): E87.2 - ACIDOSIS (4) Metabolic encephalopathy Code(s): G93.41 - METABOLIC ENCEPHALOPATHY (5) HTN (hypertension) Code(s): I10 - ESSENTIAL (PRIMARY) HYPERTENSION (6) Dementia Code(s): F03.90 - UNSPECIFIED DEMENTIA WITHOUT BEHAVIORAL DISTURBANCE 7 gram positive bacteremia 8 head aches plan no issues awaiting placement patient stable
[2016-08-09] MEDS: NEOMYCIN/POLYMYXIN/BACITRACIN (TRIPLE ANTIBIOTIC) 28 GM OINTMENT TP SCH (16:51)
[2016-08-09] MEDS: COLLAGENASE CLOSTRIDIUM HIST. 30 GRAMS TUBE TP SCH (16:52)
[2016-08-09] MEDS: NYSTATIN/TRIAMCINOLONE TOPICAL CREAM 15 GM TUBE TP SCH (16:52)
[2016-08-09 18:28] VITALS: BP 111/67; PULSE 71; TEMP 98.1
== END 2016-08-09 21:13 | DRG 871 ==
LOC: JER 09:11 → JERBED 11:22 → J4S 14:26 → J8W 06-13 22:14
PROVIDERS: ADMIT Internal Medicine; ATTEND Internal Medicine Geriatric Medicine
PROC: 02HV33Z Insertion of Infusion Device into Superior Vena Cava, Percutaneous Approach (ICD-10-PCS; principal; 2016-06-18)
PROC: B518YZA Fluoroscopy of Superior Vena Cava using Other Contrast, Guidance (ICD-10-PCS; 2016-06-18)
DX: A41.81 Sepsis due to Enterococcus (principal); I21.4 Non-ST elevation (NSTEMI) myocardial infarction; G92 Toxic encephalopathy; L89.154 Pressure ulcer of sacral region, stage 4; E87.2 Acidosis; N39.0 Urinary tract infection, site not specified; F03.91 Unspecified dementia, unspecified severity, with behavioral disturbance; E87.0 Hyperosmolality and hypernatremia; R64 Cachexia; I47.1 Supraventricular tachycardia; N13.30 Unspecified hydronephrosis; B95.2 Enterococcus as the cause of diseases classified elsewhere; R51 Headache; E87.6 Hypokalemia; I10 Essential (primary) hypertension; D50.9 Iron deficiency anemia, unspecified; F41.9 Anxiety disorder, unspecified; R07.9 Chest pain, unspecified; Z75.1 Person awaiting admission to adequate facility elsewhere; R31.9 Hematuria, unspecified; R65.20 Severe sepsis without septic shock; E88.09 Other disorders of plasma-protein metabolism, not elsewhere classified; E83.42 Hypomagnesemia; Z68.23 Body mass index [BMI] 23.0-23.9, adult; E83.39 Other disorders of phosphorus metabolism; N40.0 Benign prostatic hyperplasia without lower urinary tract symptoms; K21.9 Gastro-esophageal reflux disease without esophagitis; L89.312 Pressure ulcer of right buttock, stage 2; R62.7 Adult failure to thrive
CPT/HCPCS: 36415; 36569; 70450-TC; 71010-TC; 73562-TC-LT; 73562-TC-RT; 74176-TC; 77001-TC; 80048; 80053; 81003; 81015; 82272; 82550; 82553; 82607; 82728; 82746; 82803; 83540; 83550; 83605; 83735; 84100; 84443; 84484; 85025; 85027; 85610; 85730; 86850; 86900; 86901; 87040; 87086; 87186; 93005; 93010; 93306-TC; 97116-GP; 97161-GP; 99285-25; C1751; J1644

== ENCOUNTER 2016-10-19 19:41 | Observation (INO) | payer OTHER ==
[2016-10-19 19:54] VITALS: BMI 22.9
--- NOTE | 2016-10-19 20:22 | PDOC ---
History of Present Illness - General History Source: Assisted Records Exam Limitations: Dementia - History of Present Illness Initial Comments: 10/19/16 20:35 The patient is an 81 year old male, with significant past medical history of dementia, BPH, frequent UTIs, DM, who presents to the emergency room from [facility] with a possible hip fracture s/p an unwitnessed fall in the bathroom this evening. long term staff believes hes complaining of right hip pain. The patient is agitated and cannot give history secondary to dementia. Allergies: NKDA PCP: Dr. Escalante <Makayla Jane - Last Filed: 10/20/16 01:04> <Brianna Prieto - Last Filed: 10/21/16 01:35> - General Chief Complaint: Bone Injury Stated Complaint: HIP Time Seen by Provider: 10/19/16 19:46 Past History <Makayla Jane - Last Filed: 10/20/16 01:04> - Past Medical History Anemia: Yes Asthma: Yes Cancer: No Dementia: Yes GI Disorders: Yes (gerd) Disorders: Yes (prostatic ca) HTN: Yes Psychiatric Problems: Yes (anxiety) - Immunization History Immunization Up to Date: No - Psycho/Social/Smoking Cessation Hx Anxiety: No Suicidal Ideation: No Smoking History: Unknown if ever smoked Have you smoked in the past 12 months: No Information on smoking cessation initiated: No Hx Alcohol Use: No Drug/Substance Use Hx: No Substance Use Type: None Hx Substance Use Treatment: No <Brianna Prieto - Last Filed: 10/21/16 01:35> - Past Medical History Allergies/Adverse Reactions: Allergies Allergy/AdvReac Type Severity Reaction Status Date / Time No Known Allergies Allergy Verified 10/19/16 19:50 Home Medications: Ambulatory Orders Acetaminophen 2 tab PO DAILY PRN 06/10/16 Ascorbic Acid [Vitamin C -] 1 tab PO DAILY 06/10/16 Collagenase Clostridium Hist. [Santyl] 1 applic TP DAILY 06/10/16 Finasteride 1 tab PO DAILY 06/10/16 Multivitamin with Minerals [Icaps Plus] 1 tab PO DAILY 06/10/16 Tamsulosin HCl 1 tab PO HS 06/10/16 Trazodone HCl 37.5 mg PO HS 06/10/16 Atorvastatin Ca [Lipitor] 10 mg PO HS #30 tablet 08/07/16 Ferrous Sulfate [Feosol] 325 mg PO DAILY #30 tab 08/07/16 Neomy Sulf/Bacitrac Zn/Poly [Neosporin Top Ointment -] 1 applic TP BID #1 applic 08/07/16 Nystatin/Triamcinolone Top Cr [Mycolog II -] 1 applic TP BID #1 applic 08/07/16 Pantoprazole Sodium [Protonix -] 40 mg PO DAILY #30 tab 08/07/16 Polyethylene Glycol 3350 [Miralax 119 gm Btl -] 17 gm PO DAILY #30 bottle Quetiapine Fumarate [Seroquel -] 25 mg PO TID #30 tablet 08/07/16 Review of Systems - Review of Systems Able to Perform ROS?: No (dementia ) <Makayla Jane - Last Filed: 10/20/16 01:04> *Physical Exam - Vital Signs Last Vital Signs Temp Pulse Resp BP Pulse Ox 98.6 F 66 14 117/77 99 10/19/16 19:51 10/19/16 19:51 10/19/16 19:51 10/19/16 19:51 10/19/16 19:51 - Physical Exam Comments: 10/19/16 20:35 GENERAL: Well developed, well nourished. Awake and alert. Agitated. Wearing diapers - incontinent. HEENT: No head trauma. No scalp laceration. Normocephalic, atraumatic. PERRLA, EOMI. No conjunctival pallor. Sclera are non-icteric. Moist mucous membranes. Oropharynx is clear. NECK: Supple. Full ROM. No JVD. Carotid pulses 2+ and symmetric, without bruits. No thyromegaly. No lymphadenopathy. CARDIOVASCULAR: Regular rate and rhythm. No murmurs, rubs, or gallops. Distal pulses are 2+ and symmetric. PULMONARY: No evidence of respiratory distress. Lungs clear to auscultation bilaterally. No wheezing, rales or rhonchi. ABDOMINAL: Soft. Non-tender. Non-distended. No rebound or guarding. No organomegaly. Normoactive bowel sounds. MUSCULOSKELETAL Normal range of motion at all joints. No bony deformities or tenderness. No CVA tenderness. EXTREMITIES: Moving all extremities. No obvious deformity. No cyanosis. No clubbing. No edema. No calf tenderness. SKIN: Warm and dry. Normal capillary refill. No rashes. No jaundice. NEUROLOGICAL: Alert, awake, verbal but poor historian, moving all extremities. <Makayla Jane - Last Filed: 10/20/16 01:04> - Vital Signs Last Vital Signs Temp Pulse Resp BP Pulse Ox 98.6 F 66 14 117/77 99 10/19/16 19:51 10/19/16 19:51 10/19/16 19:51 10/19/16 19:51 10/19/16 19:51 <Brianna Prieto - Last Filed: 10/21/16 01:35> ED Treatment Course - LABORATORY CBC & Chemistry Diagram: 10/19/16 21:20 10/19/16 21:20 - RADIOLOGY Radiograph Interpretation: 10/20/16 01:04 EXAM#: TYPE/EXAM: RESULT: [id number] CT/HEAD CT WITHOUT CONTRAST Cranial CT without contrast Clinical information: neuro / altered mental status / headache No intracranial hemorrhage is seen. There is no discrete infarct within the limitations of CT. No defiite interval change is identified in comparison to a prior CT study of . Mild to moderate periventricular microvascular ischemic gliosis is noted. There is moderate generalized cerebral atrophy with mild ventricular dilatation. No extra-axial fluid collection is seen. There is no obvious mass lesion. The calvarium appears intact. In comparison to the prior CT study note is made of interval development of mild to moderate left maxillary and mild left sphenoid sinus mucosal thickening consistent with chronic versus subacute sinusitis. There also appears to be interval development of a very small amount of fluid within the left maxillary sinus which could be on the basis of superimposed acute sinusitis. Correlate clinically. Interval resolution of moderate right ethmoid sinus opacification is noted. Impression: No CT evidence of acute intracranial pathology. Mild to moderate periventricular chronic microvascular ischemic changes. Generalized cerebral atrophy. Paranasal sinus disease as discussed above. Reported By: Nicolas Rogers MD 10/19/16 [id number] <Makayla Jane - Last Filed: 10/20/16 01:04> - LABORATORY CBC & Chemistry Diagram: 10/19/16 21:20 10/19/16 21:20 <Brianna Prieto - Last Filed: 10/21/16 01:35> *DC/Admit/Observation/Transfer - Attestations Scribe Attestion: 10/19/16 20:36 Documentation prepared by JOSS Alvarez, acting as medical numerical control operator for Brianna Prieto MD. <Makayla Jane - Last Filed: 10/20/16 01:04> <Brianna Prieto - Last Filed: 10/21/16 01:35> Diagnosis at time of Disposition: Closed avulsion fracture of greater trochanter of femur - Discharge Dispostion Condition at time of disposition: Stable
[2016-10-19] MEDS ORDERED: HALOPERIDOL LACTATE 5 MG/ML IM ONE (20:34)
[2016-10-19] MEDS ORDERED: HALOPERIDOL LACTATE 5 MG/ML ONE (20:38)
[2016-10-19] MEDS ORDERED: morphine CARPU-JECT 2 MG/1 ML DISP.SYRIN IM ONE (21:07)
[2016-10-19] MEDS ORDERED: morphine CARPU-JECT 2 MG/1 ML DISP.SYRIN ONE (21:09)
[2016-10-19 21:32] LABS: BASOPHIL 0.5 % (0-2.0); EOSINOPHIL 0.4 % (0-4.5); MCHC 32.7 g/dl (32.0-35.9); MEAN CELL VOLUME 82.5 fl (80-96); MEAN PLT VOLUME 9.3 fl (7.5-11.1); PLATELET COUNT 172 K/MM3 (134-434); RDW 17.3 % (11.9-15.9); WHITE BLOOD COUNT 11.6 K/mm3 (4.0-10.0)
[2016-10-19 21:43] LABS: INR 1.22 (0.82-1.09); PROTHROMBIN TIME (PATIENT) 13.5 SEC (9.98-11.88)
[2016-10-19 22:11] LABS: ALBUMIN 2.9 g/dl (3.4-5.0); ANION GAP 8 (8-16); CALCIUM 8.5 mg/dL (8.5-10.1); CO2 26 mmol/L (21-32); CREATININE 0.7 mg/dL (0.7-1.3); GLUCOSE,RANDOM 113 mg/dL (74-106)
[2016-10-19 22:27] LABS: ALK PHOS 80 U/L (45-117); BILIRUBIN,TOTAL 0.7 mg/dL (0.2-1.0); SGPT/ALT 22 U/L (12-78); TOT PROT 6.5 g/dl (6.4-8.2); TROPONIN I < 0.02 ng/ml (0.00-0.05)
[2016-10-19 22:59] LABS: CPK 100 IU/L (39-308); SGOT/AST 23 U/L (15-37)
[2016-10-20 01:05] LABS: URINE APPEARANCE CLEAR; URINE BILIRUBIN NEGATIVE (NEGATIVE); URINE BLOOD NEGATIVE (NEGATIVE); URINE COLOR LT. YELLOW; URINE GLUCOSE (UA) NEGATIVE (NEGATIVE); URINE KETONE NEGATIVE (NEGATIVE); URINE NITRITE NEGATIVE (NEGATIVE); URINE PROTEIN NEGATIVE (NEGATIVE); URINE UROBILINOGEN 0.2 mg/dL (0.2-1.0)
[2016-10-20] MEDS ORDERED: ALBUTEROL SO4 2.5/IPRATROPIUM 0.5 INH SOL 3 ML VIAL.NEB. NEB ONE ×2 (01:16→01:18)
[2016-10-20] MEDS ORDERED: QUEtiapine FUMARATE 25 MG TABLET (FP) PO ONE (02:04)
[2016-10-20] MEDS ORDERED: traZODone HCL 50 MG TABLET (FP) PO ONE (02:05)
[2016-10-20] MEDS ORDERED: QUEtiapine FUMARATE 25 MG TABLET (FP) ONE (02:22)
[2016-10-20] MEDS ORDERED: ACETAMINOPHEN 500 MG TABLET (FP) PO ONE (02:59)
[2016-10-20] MEDS ORDERED: ACETAMINOPHEN 325 MG TABLET (FP) ONE (03:05)
--- NOTE | 2016-10-20 03:23 | PDOC ---
*Physical Exam - Vital Signs Last Vital Signs Temp Pulse Resp BP Pulse Ox 97.9 F 67 18 145/92 97 10/19/16 20:42 10/19/16 20:42 10/19/16 20:42 10/19/16 20:42 10/19/16 20:42 Heart Score/ECG Review - ECG Impressions Comment:: 10/20/16 04:41 Twelve-lead EKG was performed and reviewed by me. There is normal sinus rhythm with a normal rate. rate of 84 pvcs present The axis is normal. The intervals are normal. There is normal R wave progression There are no ST or T wave abnormalities. Impression: Normal twelve-lead EKG ED Treatment Course - LABORATORY CBC & Chemistry Diagram: 10/19/16 21:20 10/19/16 21:20 - ADDITIONAL ORDERS Additional order review: Laboratory Results 10/19/16 10/19/16 10/19/16 23:55 21:20 21:20 INR 1.22 H Sodium 133 L Potassium 4.4 Chloride 99 Carbon Dioxide 26 Anion Gap 8 BUN 15 D Creatinine 0.7 Creat Clearance w eGFR > 60 Random Glucose 113 H Calcium 8.5 Total Bilirubin 0.7 D AST 23 D ALT 22 Alkaline Phosphatase 80 Creatine Kinase 100 Troponin I < 0.02 Total Protein 6.5 Albumin 2.9 L Urine Color Lt. yellow Urine Appearance Clear Urine pH 7.0 Urine Protein Negative Urine Glucose (UA) Negative Urine Ketones Negative Urine Blood Negative Urine Nitrite Negative Urine Bilirubin Negative Urine Urobilinogen 0.2 10/19/16 21:20 RBC 4.32 D MCV 82.5 MCHC 32.7 RDW 17.3 H MPV 9.3 Neutrophils % 86.0 H Lymphocytes % 8.4 D Monocytes % 4.7 Eosinophils % 0.4 Basophils % 0.5 - Medications Given in the ED: ED Medications Discontinued Medications Generic Name Dose Route Start Last Admin Trade Name Freq PRN Reason Stop Dose Admin Acetaminophen 975 mg 10/20/16 02:59 10/20/16 03:04 Tylenol - PO 10/20/16 03:00 975 mg ONCE ONE Administration Albuterol/Ipratropium 1 amp 10/20/16 01:16 10/20/16 01:23 Duoneb - NEB 10/20/16 01:17 1 amp ONCE ONE Administration Haloperidol 5 mg 10/19/16 20:34 10/19/16 20:41 Haldol Injection (Fast Acting) - IM 10/19/16 20:35 5 mg ONCE ONE Administration Morphine Sulfate 2 mg 10/19/16 21:07 10/19/16 21:44 Morphine Injection - IM 10/19/16 21:08 2 mg ONCE ONE Administration Quetiapine Fumarate 25 mg 10/20/16 02:04 10/20/16 02:53 Seroquel - PO 10/20/16 02:05 25 mg ONCE ONE Administration Trazodone HCl 25 mg 10/20/16 02:05 10/20/16 02:53 Desyrel - PO 10/20/16 02:06 25 mg ONCE ONE Administration Medical Decision Making - Medical Decision Making 10/20/16 03:23 pt signed out to me from dr. sofy Stonery M hx of dementia, bph, utis, dm, presents s/p unwitnessed fall and pain in the LE. pt with xray without obvious findings. labs unremarkble pt with signifciant pain when ambulating - awaiting CT to ro hip fx PMD Ava 10/20/16 04:30 ct shows acute avulsion fx of greater trochanter as pt is unable to ambulate will admit pt for pain control and ortho consultation 10/20/16 06:[address] hancock agree with obs and ortho consult request dr. lewis consult put in computer Case discussed in detail with admitting physician including history, physical exam and ancillary studies. Admitting physician has assumed care for the patient, will follow all pending diagnostics and will complete the evaluation and treatment. *DC/Admit/Observation/Transfer Diagnosis at time of Disposition: Closed avulsion fracture of greater trochanter of femur Qualifiers: Encounter type: initial encounter Laterality: right Qualified Code(s): S72.111A - Displaced fracture of greater trochanter of right femur, initial encounter for closed fracture - Discharge Dispostion Condition at time of disposition: Stable Admit: Yes - Referrals Referrals: Bhavesh Escalante MD [Primary Care Provider] -
[2016-10-20] MEDS ORDERED: morphine CARPU-JECT 2 MG/1 ML DISP.SYRIN IVPUSH ONE (04:30)
[2016-10-20] MEDS ORDERED: morphine CARPU-JECT 2 MG/1 ML DISP.SYRIN ONE (04:34)
[2016-10-20] MEDS ORDERED: morphine CARPU-JECT 2 MG/1 ML DISP.SYRIN IVPUSH PRN (07:42)
[2016-10-20] MEDS ORDERED: ONDANSETRON 4 MG/2 ML VIAL IVPB PRN (07:42)
[2016-10-20] MEDS ORDERED: SODIUM CHLORIDE 1,000 ML IV SCH (07:45)
[2016-10-20] MEDS: ASCORBIC ACID 500 MG TABLET (FP) PO SCH (09:48)
[2016-10-20] MEDS: FERROUS SO4 325 MG TABLET (FP) PO SCH (09:48)
[2016-10-20] MEDS: FINASTERIDE 5 MG TABLET (FP) PO SCH (09:48)
[2016-10-20] MEDS: MULTIVITAMINS THER W-MINERALS COMBO TABLET (FP) PO SCH (09:48)
[2016-10-20] MEDS: DOCUSATE SODIUM 100 MG CAPSULE (FP) PO SCH ×2 (09:48→21:42)
[2016-10-20] MEDS: ENOXAPARIN NA (PORCINE) 40 MG/0.4 ML DISP.SYRIN SQ SCH (09:48)
[2016-10-20] MEDS: PANTOPRAZOLE 40 MG TABLET (FP) PO SCH (09:48)
[2016-10-20] MEDS: ACETAMINOPHEN 325 MG TABLET (FP) PO PRN ×2 (09:49→20:10)
[2016-10-20] MEDS: POLYETHYLENE GLYCOL 3350 119 GM BTL PO SCH (09:53)
[2016-10-20] MEDS: NYSTATIN/TRIAMCINOLONE TOPICAL CREAM 15 GM TUBE TP SCH ×2 (09:54→21:44)
[2016-10-20] MEDS ORDERED: NEOMYCIN/POLYMYXIN/BACITRACIN (TRIPLE ANTIBIOTIC) 28 GM OINTMENT TP SCH (10:00)
[2016-10-20] MEDS ORDERED: COLLAGENASE CLOSTRIDIUM HIST. 30 GRAMS TUBE TP SCH (10:00)
--- NOTE | 2016-10-20 10:34 | EKG ---
Test Reason : Blood Pressure : / mmHG Vent. Rate : 084 BPM Atrial Rate : 084 BPM P-R Int : 126 ms QRS Dur : 076 ms QT Int : 380 ms P-R-T Axes : 074 003 052 degrees QTc Int : 449 ms POOR DATA QUALITY, INTERPRETATION MAY BE ADVERSELY AFFECTED SINUS RHYTHM WITH FREQUENT PREMATURE VENTRICULAR COMPLEXES OTHERWISE NORMAL ECG WHEN COMPARED WITH ECG OF 01-AUG-2016 20:57, PREMATURE VENTRICULAR COMPLEXES ARE NOW PRESENT NONSPECIFIC T WAVE ABNORMALITY NOW EVIDENT IN LATERAL LEADS REPEAT EKG IF CLINICALLY INDICATED Confirmed by CALIXTO BOLIVAR MD ([id number]) on 10/20/2016 10:33:51 AM Referred By: Confirmed By:CALIXTO BOLIVAR MD
[2016-10-20] MEDS ORDERED: PNEUMOC 13-VAL CONJ-DIP CRM/PF 0.5 ML DISP.SYRIN IM ONE (13:00)
[2016-10-20] MEDS: oxyCODONE HCL 5 MG TABLET PO PRN ×2 (14:39→20:10)
[2016-10-20] MEDS: QUEtiapine FUMARATE 25 MG TABLET (FP) PO SCH ×2 (14:39→21:42)
--- NOTE | 2016-10-20 15:34 | HP ---
Admitting History and Physical - Primary Care Physician PCP: Bhavesh Escalante - Admission Chief Complaint: I'm hurting History of Present Illness: Mr Mcdonald is an 81 year old male from [facility] who comes in secondary to a fall. He was at [facility] and fell. He was having significant pain there and was sent here for evaluation of possible fracture. He had x-ray which was negative, but underwent CT scan which showed nondisplaced, comminuted fracture of R trochanter of the femur. He was admitted for pain control and ortho evaluation. Patient complains of pain in his right leg but otherwise I am unable to obtain further history or subjective from patient. 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 Cardiovascular: Yes: HTN Renal/: Yes: BPH - Advance Directives Advance Directives: Yes: Health Care Proxy - Smoking History Smoking history: Unknown if ever smoked Have you smoked in the past 12 months: No - Alcohol/Substance Use Hx Alcohol Use: No History of Substance Use: reports: None - Social History Usual Living Arrangement: Yes: Intermediate ADL: Support Services History of Recent Travel: No Home Medications - Allergies Allergies/Adverse Reactions: Allergies Allergy/AdvReac Type Severity Reaction Status Date / Time No Known Allergies Allergy Verified 10/19/16 19:50 - Home Medications Home Medications: Ambulatory Orders Acetaminophen 2 tab PO DAILY PRN 06/10/16 Ascorbic Acid [Vitamin C -] 1 tab PO DAILY 06/10/16 Collagenase Clostridium Hist. [Santyl] 1 applic TP DAILY 06/10/16 Finasteride 1 tab PO DAILY 06/10/16 Multivitamin with Minerals [Icaps Plus] 1 tab PO DAILY 06/10/16 Tamsulosin HCl 1 tab PO HS 06/10/16 Trazodone HCl 37.5 mg PO HS 06/10/16 Atorvastatin Ca [Lipitor] 10 mg PO HS #30 tablet 08/07/16 Ferrous Sulfate [Feosol] 325 mg PO DAILY #30 tab 08/07/16 Neomy Sulf/Bacitrac Zn/Poly [Neosporin Top Ointment -] 1 applic TP BID #1 applic 08/07/16 Nystatin/Triamcinolone Top Cr [Mycolog II -] 1 applic TP BID #1 applic 08/07/16 Pantoprazole Sodium [Protonix -] 40 mg PO DAILY #30 tab 08/07/16 Polyethylene Glycol 3350 [Miralax 119 gm Btl -] 17 gm PO DAILY #30 bottle Quetiapine Fumarate [Seroquel -] 25 mg PO TID #30 tablet 08/07/16 Family Disease History - Family Disease History Family History: Unable to Obtain Review of Systems Unable to obtain ROS, reason: dementia Physical Examination Vital Signs: Vital Signs Temperature 36.9 C 10/20/16 15:29 Pulse Rate 67 10/20/16 15:29 Respiratory Rate 20 10/20/16 15:29 Blood Pressure 122/76 10/20/16 15:29 O2 Sat by Pulse Oximetry (%) 97 10/20/16 10:00 Constitutional: Yes: Mild Distress, Thin Eyes: Yes: Conjunctiva Clear, PERRL Cardiovascular: Yes: Regular Rate and Rhythm. No: Gallop, Murmur, Rub Respiratory: Yes: Regular, CTA Bilaterally. No: Rales, Rhonchi, Wheezes Gastrointestinal: Yes: Normal Bowel Sounds, Soft. No: Distention, Tenderness Extremities: Yes: WNL Edema: No Labs: Laboratory Results - last 24 hr 10/19/16 10/19/16 10/19/16 21:20 21:20 21:20 WBC 11.6 H D RBC 4.32 D Hgb 11.7 D Hct 35.6 D MCV 82.5 MCH 27.0 MCHC 32.7 RDW 17.3 H Plt Count 172 MPV 9.3 Neutrophils % 86.0 H Lymphocytes % 8.4 D Monocytes % 4.7 Eosinophils % 0.4 Basophils % 0.5 INR 1.22 H Sodium 133 L Potassium 4.4 Chloride 99 Carbon Dioxide 26 Anion Gap 8 BUN 15 D Creatinine 0.7 Creat Clearance w eGFR > 60 Random Glucose 113 H Calcium 8.5 Total Bilirubin 0.7 D AST 23 D ALT 22 Alkaline Phosphatase 80 Creatine Kinase 100 Troponin I < 0.02 Total Protein 6.5 Albumin 2.9 L Urine Color Urine Appearance Urine pH Ur Specific [place] Urine Protein Urine Glucose (UA) Urine Ketones Urine Blood Urine Nitrite Urine Bilirubin Urine Urobilinogen 10/19/16 23:55 WBC RBC Hgb Hct MCV MCH MCHC RDW Plt Count MPV Neutrophils % Lymphocytes % Monocytes % Eosinophils % Basophils % INR Sodium Potassium Chloride Carbon Dioxide Anion Gap BUN Creatinine Creat Clearance w eGFR Random Glucose Calcium Total Bilirubin AST ALT Alkaline Phosphatase Creatine Kinase Troponin I Total Protein Albumin Urine Color Lt. yellow Urine Appearance Clear Urine pH 7.0 Ur Specific [place] 1.020 Urine Protein Negative Urine Glucose (UA) Negative Urine Ketones Negative Urine Blood Negative Urine Nitrite Negative Urine Bilirubin Negative Urine Urobilinogen 0.2 Imaging - Results X-ray: Report Reviewed Cat Scan: Report Reviewed Problem List - Problems (1) Closed avulsion fracture of greater trochanter of femur Assessment/Plan: -secondary to fall -pain control with oxycodone and morphine -lovenox for DVT PPx -ortho consulted and awaiting recommendations -PT consult -if no surgical intervention is indicated, plan for transfer back to SNF with instructions Code(s): S72.113A - DISP FX OF GREATER TROCHANTER OF UNSP FEMUR, INIT Qualifiers: Encounter type: initial encounter Laterality: right Qualified Code( s): S72.111A - Displaced fracture of greater trochanter of right femur, initial encounter for closed fracture (2) Dementia Assessment/Plan: -continue seroquel and trazadone for mood support Code(s): F03.90 - UNSPECIFIED DEMENTIA WITHOUT BEHAVIORAL DISTURBANCE Qualifiers: Dementia type: unspecified type Dementia behavioral disturbance: with behavioral disturbance Qualified Code(s): F03.91 - Unspecified dementia with behavioral disturbance; F10.97 - Alcohol use, unspecified with alcohol- induced persisting dementia (3) BPH (benign prostatic hyperplasia) Assessment/Plan: -continue finasteride and flomax Code(s): N40.0 - BENIGN PROSTATIC HYPERPLASIA WITHOUT LOWER URINRY TRACT SYMP (4) HLD (hyperlipidemia) Assessment/Plan: -continue statin Code(s): E78.5 - HYPERLIPIDEMIA, UNSPECIFIED
[2016-10-20] MEDS ORDERED: traZODone HCL 50 MG TABLET (FP) PO SCH (22:00)
[2016-10-20] MEDS ORDERED: TAMSULOSIN HCL 0.4 MG CAP.ER.24H (FP) PO SCH (22:00)
[2016-10-20] MEDS ORDERED: ATORVASTATIN CA 10 MG TABLET (FP) PO SCH (22:00)
[2016-10-21] MEDS ORDERED: PT OWN MED DRAWER 7, Y5N ONE (02:54)
[2016-10-21] MEDS: QUEtiapine FUMARATE 25 MG TABLET (FP) PO SCH (05:53)
--- NOTE | 2016-10-21 07:07 | CONSULT ---
Consult - History of Present Illness Chief Complaint: right hip pain History of Present Illness: 81y/o male c/o right hip pain. He lives in a intermediate. The staff believes he fell and is since complaining of right hip pain. Pt had x-rays and CT scan in the ER. He c/o pain in his right hip. No other associated, aggravating or relieving factors. Pt has hx of demenia and is a poor historian. 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 Cardio/Vascular: Yes: HTN Renal/: Yes: BPH - Alcohol/Substance Use Hx Alcohol Use: No History of Substance Use: reports: None - Smoking History Smoking history: Unknown if ever smoked Have you smoked in the past 12 months: No - Social History ADL: Support Services History of Recent Travel: No Home Medications - Allergies Allergies/Adverse Reactions: Allergies Allergy/AdvReac Type Severity Reaction Status Date / Time No Known Allergies Allergy Verified 10/19/16 19:50 - Home Medications Home Medications: Ambulatory Orders Acetaminophen 2 tab PO DAILY PRN 06/10/16 Ascorbic Acid [Vitamin C -] 1 tab PO DAILY 06/10/16 Collagenase Clostridium Hist. [Santyl] 1 applic TP DAILY 06/10/16 Finasteride 1 tab PO DAILY 06/10/16 Multivitamin with Minerals [Icaps Plus] 1 tab PO DAILY 06/10/16 Tamsulosin HCl 1 tab PO HS 06/10/16 Trazodone HCl 37.5 mg PO HS 06/10/16 Atorvastatin Ca [Lipitor] 10 mg PO HS #30 tablet 08/07/16 Ferrous Sulfate [Feosol] 325 mg PO DAILY #30 tab 08/07/16 Neomy Sulf/Bacitrac Zn/Poly [Neosporin Top Ointment -] 1 applic TP BID #1 applic 08/07/16 Nystatin/Triamcinolone Top Cr [Mycolog II -] 1 applic TP BID #1 applic 08/07/16 Pantoprazole Sodium [Protonix -] 40 mg PO DAILY #30 tab 08/07/16 Polyethylene Glycol 3350 [Miralax 119 gm Btl -] 17 gm PO DAILY #30 bottle Quetiapine Fumarate [Seroquel -] 25 mg PO TID #30 tablet 08/07/16 Review of Systems - Review of Systems Constitutional: reports: No Symptoms Eyes: reports: No Symptoms HENT: reports: No Symptoms Neck: reports: No Symptoms Cardiovascular: reports: No Symptoms Respiratory: reports: No Symptoms Gastrointestinal: reports: No Symptoms Genitourinary: reports: No Symptoms Breasts: reports: No Symptoms Reported Musculoskeletal: reports: Extremity Pain Integumentary: reports: No Symptoms Neurological: reports: No Symptoms Endocrine: reports: No Symptoms Hematology/Lymphatic: reports: No Symptoms Psychiatric: reports: No Symptoms Physical Exam Vital Signs: Vital Signs Temperature 97.8 F 10/21/16 05:14 Pulse Rate 78 10/21/16 05:14 Respiratory Rate 20 10/21/16 05:44 Blood Pressure 152/89 10/21/16 05:14 O2 Sat by Pulse Oximetry (%) 97 10/21/16 05:44 Constitutional: Yes: Well Nourished, No Distress, Calm HENT: Yes: Atraumatic, Normocephalic Musculoskeletal: Yes: Other (Right hip: no open wounds. Mild edema and ecchymosis at the hip. There is focal tenderness over the Greater trochanter. No other areas of tenderenss. Smooth ROM of the hip. No instablity. NVID. Compartments soft. No calf tenderness.) Imaging - Results X-ray: Report Reviewed, Image Reviewed Cat Scan: Report Reviewed, Image Reviewed (Right greater trochanter fracture, non displaced) Assessment/Plan #1 right greater trochanter fracture without intertrochanteric fracture -WBAT, OOB, PT -No surgery indicated, may return to intermediate from a orthopedic standpoint. -Pain control
[2016-10-21 08:20] LABS: BASOPHIL 0.4 % (0-2.0); EOSINOPHIL 4.4 % (0-4.5); MCH 26.7 pg (25.7-33.7); MCHC 32.7 g/dl (32.0-35.9); MEAN CELL VOLUME 81.5 fl (80-96); MEAN PLT VOLUME 9.1 fl (7.5-11.1); NEUTROPHILS 71.6 % (42.8-82.8); PLATELET COUNT 165 K/MM3 (134-434); RDW 17.5 % (11.9-15.9); WHITE BLOOD COUNT 8.3 K/mm3 (4.0-10.0)
[2016-10-21 08:35] LABS: ANION GAP 8 (8-16); CALCIUM 8.7 mg/dL (8.5-10.1); CO2 26 mmol/L (21-32); CREATININE 0.7 mg/dL (0.7-1.3); GLUCOSE,RANDOM 79 mg/dL (74-106); PHOSPHOROUS 3.3 mg/dL (2.5-4.9)
[2016-10-21] MEDS: ASCORBIC ACID 500 MG TABLET (FP) PO SCH (09:19)
[2016-10-21] MEDS: MULTIVITAMINS THER W-MINERALS COMBO TABLET (FP) PO SCH (09:19)
[2016-10-21] MEDS: PANTOPRAZOLE 40 MG TABLET (FP) PO SCH (09:20)
[2016-10-21] MEDS: DOCUSATE SODIUM 100 MG CAPSULE (FP) PO SCH (09:20)
[2016-10-21] MEDS: ENOXAPARIN NA (PORCINE) 40 MG/0.4 ML DISP.SYRIN SQ SCH (09:20)
[2016-10-21] MEDS: FERROUS SO4 325 MG TABLET (FP) PO SCH (09:20)
[2016-10-21] MEDS: FINASTERIDE 5 MG TABLET (FP) PO SCH (09:20)
[2016-10-21] MEDS: POLYETHYLENE GLYCOL 3350 119 GM BTL PO SCH (09:20)
--- NOTE | 2016-10-21 13:12 | DS ---
Physical Examination Vital Signs: Vital Signs Temperature 36.4 C 10/21/16 09:00 Pulse Rate 76 10/21/16 09:00 Respiratory Rate 20 10/21/16 09:00 Blood Pressure 134/76 10/21/16 09:00 O2 Sat by Pulse Oximetry (%) 97 10/21/16 05:44 Constitutional: Yes: Well Nourished, No Distress, Calm Cardiovascular: Yes: Regular Rate and Rhythm. No: Gallop, Murmur, Rub Respiratory: Yes: Regular, CTA Bilaterally. No: Rales, Rhonchi, Wheezes Gastrointestinal: Yes: Normal Bowel Sounds, Soft. No: Distention, Tenderness Extremities: Yes: WNL Edema: No Labs: CBC, BMP 10/21/16 07:05 10/21/16 07:05 Discharge Summary Reason For Visit: CLOSED AVULSION FRACTURE OF HIP Current Active Problems BPH (benign prostatic hyperplasia) (Acute) Closed avulsion fracture of greater trochanter of femur (Acute) HLD (hyperlipidemia) (Acute) Hospital Course: (1) Closed avulsion fracture of greater trochanter of femur Code(s): S72.113A - DISP FX OF GREATER TROCHANTER OF UNSP FEMUR, INIT Qualifiers: Encounter type: initial encounter Laterality: right Qualified Code( s): S72.111A - Displaced fracture of greater trochanter of right femur, initial encounter for closed fracture (2) Dementia Code(s): F03.90 - UNSPECIFIED DEMENTIA WITHOUT BEHAVIORAL DISTURBANCE Qualifiers: Dementia type: unspecified type Dementia behavioral disturbance: with behavioral disturbance Qualified Code(s): F03.91 - Unspecified dementia with behavioral disturbance; F10.97 - Alcohol use, unspecified with alcohol- induced persisting dementia (3) BPH (benign prostatic hyperplasia) Code(s): N40.0 - BENIGN PROSTATIC HYPERPLASIA WITHOUT LOWER URINRY TRACT SYMP (4) HLD (hyperlipidemia) Code(s): E78.5 - HYPERLIPIDEMIA, UNSPECIFIED Mr Mcdonald is an 81 year old male who comes in from [facility] after a fall. He was found to have a nondisplaced R greater trochanter fracture. He was admitted and his pain was controlled. He was seen by orthopedic surgery, after evaluation orthopedic surgery felt no surgical intervention was needed and he was safe for discharge back to SNF. He was seen by PT prior to discharge. He is stable for discharge back to SNF today. Patient will be discharged on lovenox in the short term, to be evaluated by SNF physician as to whether this needs to be continued. 34 minutes spent in preparation of this discharge Condition: Stable - Instructions Diet, Activity, Other Instructions: resume previous diet. Up with assistance, further activity per PT at SNF. Referrals: Bhavesh Escalante MD [Primary Care Provider] - Ri,Ronald Hussein MD [Staff Physician] - [facility] - Home Medications Comprehensive Discharge Medication List: Ambulatory Orders Acetaminophen 2 tab PO DAILY PRN 06/10/16 Ascorbic Acid [Vitamin C -] 1 tab PO DAILY 06/10/16 Collagenase Clostridium Hist. [Santyl] 1 applic TP DAILY 06/10/16 Finasteride 1 tab PO DAILY 06/10/16 Multivitamin with Minerals [Icaps Plus] 1 tab PO DAILY 06/10/16 Tamsulosin HCl 1 tab PO HS 06/10/16 Trazodone HCl 37.5 mg PO HS 06/10/16 Atorvastatin Ca [Lipitor] 10 mg PO HS #30 tablet 08/07/16 Ferrous Sulfate [Feosol] 325 mg PO DAILY #30 tab 08/07/16 Neomy Sulf/Bacitrac Zn/Poly [Neosporin Top Ointment -] 1 applic TP BID #1 applic 08/07/16 Nystatin/Triamcinolone Top Cr [Mycolog II -] 1 applic TP BID #1 applic 08/07/16 Pantoprazole Sodium [Protonix -] 40 mg PO DAILY #30 tab 08/07/16 Polyethylene Glycol 3350 [Miralax 119 gm Btl -] 17 gm PO DAILY #30 bottle Quetiapine Fumarate [Seroquel -] 25 mg PO TID #30 tablet 08/07/16 Docusate Sodium [Colace -] 100 mg PO BID cap 10/21/16 Enoxaparin [Lovenox -] 40 mg SQ DAILY syr 10/21/16 Oxycodone HCl [Roxicodone -] 5 mg PO Q4H PRN #1 tablet MDD 30mg 10/21/16
[2016-10-21 14:11] VITALS: BP 158/80; PULSE 86; TEMP 98.7
== END 2016-10-21 16:01 ==
LOC: JER 19:41 → JERBED 10-20 04:39 → JER 10-20 06:15 → J6S 10-20 07:42
PROVIDERS: ADMIT Internal Medicine; ATTEND Internal Medicine
PROC: 3E033GC Introduction of Other Therapeutic Substance into Peripheral Vein, Percutaneous Approach (ICD-10-PCS; principal; 2016-10-20)
PROC: 3E033NZ Introduction of Analgesics, Hypnotics, Sedatives into Peripheral Vein, Percutaneous Approach (ICD-10-PCS; 2016-10-20)
PROC: 3E023NZ Introduction of Analgesics, Hypnotics, Sedatives into Muscle, Percutaneous Approach (ICD-10-PCS; 2016-10-20)
PROC: 3E0337Z Introduction of Electrolytic and Water Balance Substance into Peripheral Vein, Percutaneous Approach (ICD-10-PCS; 2016-10-20)
PROC: 3E0F7GC Introduction of Other Therapeutic Substance into Respiratory Tract, Via Natural or Artificial Opening (ICD-10-PCS; 2016-10-20)
DX: S72.111A Displaced fracture of greater trochanter of right femur, initial encounter for closed fracture (principal); F03.90 Unspecified dementia, unspecified severity, without behavioral disturbance, psychotic disturbance, mood disturbance, and anxiety; N40.0 Benign prostatic hyperplasia without lower urinary tract symptoms; E78.5 Hyperlipidemia, unspecified; D64.9 Anemia, unspecified; K21.9 Gastro-esophageal reflux disease without esophagitis; I10 Essential (primary) hypertension; W18.30XA Fall on same level, unspecified, initial encounter; Z91.81 History of falling; Y93.9 Activity, unspecified; Y92.121 Bathroom in nursing home as the place of occurrence of the external cause
CPT/HCPCS: 36415; 70450-TC; 71010-TC; 73502-TC-LT; 73523-TC; 73700-TC-RT; 80048; 80053; 81003; 83735; 84100; 84484; 85025; 85610; 87086; 93005; 93010; 97116-GP; 97161-GP; 99283-25; G0378

== ENCOUNTER 2016-10-28 16:52 | Observation (INO) | payer OTHER ==
--- NOTE | 2016-10-28 19:50 | PDOC ---
Attending Attestation - Resident Resident Name: Clark Aguilera - ED Attending Attestation I have performed the following: I have examined & evaluated the patient, The case was reviewed & discussed with the resident, I agree w/resident's findings & plan, Exceptions are as noted - HPI HPI: 10/30/16 13:24 81M with a PMH of dementia, BPH, DM who presents to the ED after a fall at the [facility] yesterday per the [facility] staff. They report that after his fall, he reported no pain but that today during PT he was walking but had pain and an unsteady gait. Per the [facility] staff, he did not have head strike yesterday when he fell, landing on his R hip. He was seen here on 10/19/16 after a fall and was found to have a fx of his R greater trochanter. XR at the facility today was negative. He currently has no complaints. - Physicial Exam PE: 10/30/16 13:26 GENERAL: Awake, alert, and fully oriented, in no acute distress HEAD: No signs of trauma EYES: PERRLA, EOMI, sclera anicteric, conjunctiva clear ENT: Auricles normal inspection, hearing grossly normal, nares patent, oropharynx clear without exudates. Moist mucosa NECK: Normal ROM, supple, no lymphadenopathy, JVD, or masses LUNGS: Breath sounds equal, clear to auscultation bilaterally. No wheezes, and no crackles HEART: Regular rate and rhythm, normal S1 and S2, no murmurs, rubs or gallops ABDOMEN: Soft, nontender, normoactive bowel sounds. No guarding, no rebound. No masses EXTREMITIES: RLE with ttp over the lateral aspect of the hip. Normal range of motion, no edema. No clubbing or cyanosis. No cords, erythema, or tenderness. 2 + peripheral pulses. RLE NVI. BACK: No midline spinal tendernes in cervial/throacic/lumbar region NEUROLOGICAL: Normal speech, cranial nerves intact, negative pronator drift, 5/ 5 strength in all 4 extremities, normal sensation to light touch in all 4 extremities, normal cerebellar exam, normal gait, normal reflexes and tone SKIN: Warm, Dry, normal turgor, no rashes or lesions noted. - Medical Decision Making 10/30/16 13:28 81yo M with mmp and recent R greater trochanter fracture p/w R hip pain s/p another fall yesterday. Exam with no shortening or rotation, and pt is NVI. Possible new fracture of R hip vs pain from known R trochanter fx. -rpt CT -basic labs -pt signed out to night attending
--- NOTE | 2016-10-28 20:06 | PDOC ---
History of Present Illness - General Chief Complaint: Injury Stated Complaint: HIP PAIN Time Seen by Provider: 10/28/16 18:54 History Source: Patient, [facility] Records Exam Limitations: Dementia - History of Present Illness Initial Comments: 10/28/16 19:56 The patient is an 81M with a PMH of dementia, BPH, frequent UTI's, and DM who presents to the ED after sustaining a fall 1 or 2 days ago (story changes between healthcare facility and daughter). The patient states that he only fell once, 1 week ago. Healthcare facility states that the patient fell again and had no pain. Today during PT he was walking but had pain and an unsteady gait. on 10/19/16 he was seen s/p fall and was found to have a fx of his R greater trochanter. XR at the facility was negative. He currently has no complaints. Past History - Past Medical History Allergies/Adverse Reactions: Allergies Allergy/AdvReac Type Severity Reaction Status Date / Time No Known Allergies Allergy Verified 10/19/16 19:50 Home Medications: Ambulatory Orders Acetaminophen 2 tab PO DAILY PRN 06/10/16 Ascorbic Acid [Vitamin C -] 1 tab PO DAILY 06/10/16 Collagenase Clostridium Hist. [Santyl] 1 applic TP DAILY 06/10/16 Finasteride 1 tab PO DAILY 06/10/16 Multivitamin with Minerals [Icaps Plus] 1 tab PO DAILY 06/10/16 Tamsulosin HCl 1 tab PO HS 06/10/16 Trazodone HCl 37.5 mg PO HS 06/10/16 Atorvastatin Ca [Lipitor] 10 mg PO HS #30 tablet 08/07/16 Ferrous Sulfate [Feosol] 325 mg PO DAILY #30 tab 08/07/16 Neomy Sulf/Bacitrac Zn/Poly [Neosporin Top Ointment -] 1 applic TP BID #1 applic 08/07/16 Nystatin/Triamcinolone Top Cr [Mycolog II -] 1 applic TP BID #1 applic 08/07/16 Pantoprazole Sodium [Protonix -] 40 mg PO DAILY #30 tab 08/07/16 Polyethylene Glycol 3350 [Miralax 119 gm Btl -] 17 gm PO DAILY #30 bottle Quetiapine Fumarate [Seroquel -] 25 mg PO TID #30 tablet 08/07/16 Docusate Sodium [Colace -] 100 mg PO BID cap 10/21/16 Enoxaparin [Lovenox -] 40 mg SQ DAILY syr 10/21/16 Oxycodone HCl [Roxicodone -] 5 mg PO Q4H PRN #1 tablet MDD 30mg 10/21/16 Anemia: Yes Asthma: Yes Cancer: No Dementia: Yes GI Disorders: Yes (gerd) Disorders: Yes (prostatic ca) HTN: Yes Psychiatric Problems: Yes (anxiety) - Immunization History Immunization Up to Date: No - Suicide/Smoking/Psychosocial Hx Smoking History: Unknown if ever smoked Have you smoked in the past 12 months: No Information on smoking cessation initiated: No Hx Alcohol Use: No Drug/Substance Use Hx: No Substance Use Type: None Hx Substance Use Treatment: No Review of Systems - Review of Systems Able to Perform ROS?: No (dementia) Is the patient limited Dutch proficient: No *Physical Exam - Vital Signs Last Vital Signs Temp Pulse Resp BP Pulse Ox 98.4 F 85 18 149/79 100 10/28/16 16:52 10/28/16 16:52 10/28/16 16:52 10/28/16 16:52 10/28/16 16:52 - Physical Exam General Appearance: Yes: Nourished. No: Apparent Distress HEENT: positive: Normal Voice, Hearing Grossly Normal Respiratory/Chest: positive: Lungs Clear, Normal Breath Sounds. negative: Chest Tender, Decreased Breath Sounds, Crackles, Rales, Rhonchi, Stridor, Wheezing Cardiovascular: positive: Regular Rhythm, Regular Rate, S1, S2. negative: Diastolic Murmur, Systolic Murmur Gastrointestinal/Abdominal: positive: Flat, Soft. negative: Tender, Guarding, Rebound, Tenderness Integumentary: positive: Dry, Warm. negative: Clammy, Diaphoresis, Swelling Neurologic: positive: Fully Oriented, Alert, Normal Mood/Affect, Motor Strength 5/5 (Decreased motor strength in R leg 2/2 pain ) Heart Score/ECG Review - ECG Impressions Normal ECG: Yes Comment:: 10/28/16 20:08 NSR ED Treatment Course - LABORATORY CBC & Chemistry Diagram: 10/28/16 20:00 10/28/16 20:00 - RADIOLOGY Radiology Studies Ordered: Category Date Time Status LOWER EXTREMITY CT W/O CONTR [CT] Stat CT Scan 10/28/16 19:28 Ordered KNEE 3 POS-RIGHT [RAD] Stat Radiology 10/28/16 19:31 Ordered Medical Decision Making - Medical Decision Making 10/28/16 20:07 The patient is an 81M with a PMH of dementia who presents to the ED after sustaining a fall. This is his second fall in 10 days. He presented on 10/19/16 and was found to have a R greater trochanter fx. Today in rehab he had an unsteady gait and pain when he walked. I will re-scan his R hip because of his second fall. I will reassess the patient when labs/imaging return. 10/28/16 20:10 Patient signed out to night team. *DC/Admit/Observation/Transfer Diagnosis at time of Disposition: Closed avulsion fracture of greater trochanter of femur - Discharge Dispostion Disposition: CARE HOME FACILITY Condition at time of disposition: Fair
[2016-10-28 20:14] LABS: BASOPHIL 0.6 % (0-2.0); EOSINOPHIL 2.4 % (0-4.5); MCH 27.4 pg (25.7-33.7); MCHC 33.2 g/dl (32.0-35.9); MEAN CELL VOLUME 82.5 fl (80-96); MEAN PLT VOLUME 8.3 fl (7.5-11.1); NEUTROPHILS 74.6 % (42.8-82.8); PLATELET COUNT 275 K/MM3 (134-434); WHITE BLOOD COUNT 9.1 K/mm3 (4.0-10.0)
[2016-10-28 20:38] LABS: ALBUMIN 3.1 g/dl (3.4-5.0); ALK PHOS 96 U/L (45-117); ANION GAP 6 (8-16); BILIRUBIN,TOTAL 0.9 mg/dL (0.2-1.0); CALCIUM 9.2 mg/dL (8.5-10.1); CO2 30 mmol/L (21-32); CPK 43 IU/L (39-308); CREATININE 0.6 mg/dL (0.7-1.3); GLUCOSE,RANDOM 87 mg/dL (74-106); SGOT/AST 22 U/L (15-37); SGPT/ALT 33 U/L (12-78); TOT PROT 6.9 g/dl (6.4-8.2); TROPONIN I < 0.02 ng/ml (0.00-0.05)
[2016-10-28] MEDS ORDERED: traZODone HCL 50 MG TABLET (FP) PO ONE (21:57)
[2016-10-28] MEDS ORDERED: QUEtiapine FUMARATE 25 MG TABLET (FP) PO ONE (21:58)
[2016-10-28] MEDS ORDERED: QUEtiapine FUMARATE 25 MG TABLET (FP) ONE (23:29)
--- NOTE | 2016-10-29 01:22 | PDOC ---
*Physical Exam - Vital Signs Last Vital Signs Temp Pulse Resp BP Pulse Ox 98.4 F 85 18 149/79 100 10/28/16 16:52 10/28/16 16:52 10/28/16 16:52 10/28/16 16:52 10/28/16 16:52 ED Treatment Course - LABORATORY CBC & Chemistry Diagram: 10/28/16 20:00 10/28/16 20:00 - ADDITIONAL ORDERS Additional order review: Laboratory Results 10/28/16 10/28/16 20:00 20:00 Sodium 131 L Potassium 4.8 Chloride 95 L Carbon Dioxide 30 Anion Gap 6 L BUN 18 D Creatinine 0.6 L Creat Clearance w eGFR > 60 Random Glucose 87 Calcium 9.2 Total Bilirubin 0.9 D AST 22 ALT 33 D Alkaline Phosphatase 96 Creatine Kinase 43 Troponin I < 0.02 Total Protein 6.9 Albumin 3.1 L 10/28/16 20:00 RBC 4.40 MCV 82.5 MCHC 33.2 RDW 18.0 H MPV 8.3 Neutrophils % 74.6 Lymphocytes % 15.0 Monocytes % 7.4 Eosinophils % 2.4 Basophils % 0.6 - Medications Given in the ED: ED Medications Discontinued Medications Generic Name Dose Route Start Last Admin Trade Name Freq PRN Reason Stop Dose Admin Quetiapine Fumarate 25 mg 10/28/16 21:58 10/28/16 23:38 Seroquel - PO 10/28/16 21:59 25 mg ONCE ONE Administration Trazodone HCl 50 mg 10/28/16 21:57 10/28/16 23:38 Desyrel - PO 10/28/16 21:58 50 mg ONCE ONE Administration Medical Decision Making - Medical Decision Making 10/29/16 01:23 Pt falling again at [facility]. Still has fx of right hip. Will admitt. Spoke to DR. Escalante. admission to Dr. Andino. *DC/Admit/Observation/Transfer Diagnosis at time of Disposition: Closed avulsion fracture of greater trochanter of femur - Discharge Dispostion Admit: Yes - Referrals Referrals: Bhavesh Escalante MD [Primary Care Provider] -
[2016-10-29] MEDS ORDERED: oxyCODONE HCL 5 MG TABLET PO PRN (01:27)
[2016-10-29] MEDS ORDERED: ACETAMINOPHEN 325 MG TABLET (FP) PO PRN (01:31)
[2016-10-29 04:11] VITALS: BMI 23.4
[2016-10-29] MEDS ORDERED: QUEtiapine FUMARATE 25 MG TABLET (FP) PO SCH (06:00)
--- NOTE | 2016-10-29 09:59 | PN ---
Progress Note (short form) - Note Progress Note: Pt seen and examined. He states he last fell 2 months ago. He hurt his right hip , which is improving. He denies any additional, more recent trauma. PE + very minimal tenderness over the lateral aspect of the right hip RLE is NVI Excellent ROM throughout: hip, knee, ankle, foot No pain with log rolling Is able to do a normal straight leg raise with no pain Xrays and CT scan show a comminuted, non displaced fracture of the right femur greater trochanter Imp As above. Greater troch fx Rec No surgery necessary WBAT, P.T. if necessary
[2016-10-29] MEDS ORDERED: ENOXAPARIN NA (PORCINE) 40 MG/0.4 ML DISP.SYRIN SQ SCH (10:00)
[2016-10-29] MEDS ORDERED: ASCORBIC ACID 500 MG TABLET (FP) PO SCH (10:00)
[2016-10-29] MEDS ORDERED: DOCUSATE SODIUM 100 MG CAPSULE (FP) PO SCH (10:00)
[2016-10-29] MEDS ORDERED: FINASTERIDE 5 MG TABLET (FP) PO SCH (10:00)
[2016-10-29] MEDS ORDERED: PANTOPRAZOLE 40 MG TABLET (FP) PO SCH (10:00)
[2016-10-29] MEDS ORDERED: POLYETHYLENE GLYCOL 3350 119 GM BTL PO SCH (10:00)
[2016-10-29] MEDS ORDERED: MULTIVITAMINS THER W-MINERALS COMBO TABLET (FP) PO SCH (10:00)
[2016-10-29] MEDS ORDERED: FERROUS SO4 325 MG TABLET (FP) PO SCH (10:00)
[2016-10-29] MEDS ORDERED: COLLAGENASE CLOSTRIDIUM HIST. 30 GRAMS TUBE TP SCH (10:00)
--- NOTE | 2016-10-29 10:31 | HP ---
Admitting History and Physical - Primary Care Physician PCP: Bhavesh Escalante - Admission Chief Complaint: right hip pain History of Present Illness: 81M with significant past medical history of dementia, BPH, frequent UTI's, and DM who presents to the ED after sustaining fall few days ago. He fell on and was sent to the ER. He was found to have a fx of his R greater trochanter. No surgical intervention advised that time and was sent back to the [facility]. During PT at [facility] he was walking but had pain and an unsteady gait and hence sent back yesterday again for evaluation. CT showed same findings as before. Seen by ortho and again no surgical intervention recommended. He will be sent back to [facility] with wbat and for continuation of PT. History Source: Medical Record Limitations to Obtaining History: Dementia - Past Medical History GENERAL PRACTICE: Yes: Dementia Cardiovascular: Yes: HTN Renal/: Yes: BPH - Advance Directives Advance Directives: Yes: Health Care Proxy - Smoking History Smoking history: Unknown if ever smoked Have you smoked in the past 12 months: No - Alcohol/Substance Use Hx Alcohol Use: No History of Substance Use: reports: None - Social History ADL: Support Services History of Recent Travel: No Home Medications - Allergies Allergies/Adverse Reactions: Allergies Allergy/AdvReac Type Severity Reaction Status Date / Time No Known Allergies Allergy Verified 10/19/16 19:50 - Home Medications Home Medications: Ambulatory Orders Acetaminophen 2 tab PO DAILY PRN 06/10/16 Ascorbic Acid [Vitamin C -] 1 tab PO DAILY 06/10/16 Collagenase Clostridium Hist. [Santyl] 1 applic TP DAILY 06/10/16 Finasteride 1 tab PO DAILY 06/10/16 Multivitamin with Minerals [Icaps Plus] 1 tab PO DAILY 06/10/16 Tamsulosin HCl 1 tab PO HS 06/10/16 Trazodone HCl 37.5 mg PO HS 06/10/16 Atorvastatin Ca [Lipitor] 10 mg PO HS #30 tablet 08/07/16 Ferrous Sulfate [Feosol] 325 mg PO DAILY #30 tab 08/07/16 Neomy Sulf/Bacitrac Zn/Poly [Neosporin Top Ointment -] 1 applic TP BID #1 applic 08/07/16 Nystatin/Triamcinolone Top Cr [Mycolog II -] 1 applic TP BID #1 applic 08/07/16 Pantoprazole Sodium [Protonix -] 40 mg PO DAILY #30 tab 08/07/16 Polyethylene Glycol 3350 [Miralax 119 gm Btl -] 17 gm PO DAILY #30 bottle Quetiapine Fumarate [Seroquel -] 25 mg PO TID #30 tablet 08/07/16 Docusate Sodium [Colace -] 100 mg PO BID cap 10/21/16 Enoxaparin [Lovenox -] 40 mg SQ DAILY syr 10/21/16 Oxycodone HCl [Roxicodone -] 5 mg PO Q4H PRN #1 tablet MDD 30mg 10/21/16 Review of Systems Unable to obtain ROS, reason: dementia Physical Examination Vital Signs: Vital Signs Temperature 98.3 F 10/29/16 04:05 Pulse Rate 70 10/29/16 04:05 Respiratory Rate 20 10/29/16 04:28 Blood Pressure 154/64 10/29/16 04:05 O2 Sat by Pulse Oximetry (%) 98 10/29/16 04:28 Constitutional: Yes: Well Nourished, Mild Distress Eyes: Yes: Conjunctiva Clear, EOM Intact HENT: Yes: Atraumatic, Normocephalic Neck: Yes: Supple, Trachea Midline Cardiovascular: Yes: Regular Rate and Rhythm Respiratory: Yes: Regular, CTA Bilaterally Gastrointestinal: Yes: Normal Bowel Sounds, Soft Edema: No Peripheral Pulses WNL: Yes ...Motor Strength: WNL Imaging - Results Chest X-ray: Report Reviewed Cat Scan: Report Reviewed Problem List - Problems (1) Closed avulsion fracture of greater trochanter of femur Assessment/Plan: CT scan reviewed. Ortho consult noted. No surgical intervention. WBAT. PT Code(s): S72.113A - DISP FX OF GREATER TROCHANTER OF UNSP FEMUR, INIT (2) Dementia Assessment/Plan: Continue current meds. Code(s): F03.90 - UNSPECIFIED DEMENTIA WITHOUT BEHAVIORAL DISTURBANCE Qualifiers: Dementia type: unspecified type Dementia behavioral disturbance: with behavioral disturbance Qualified Code(s): F03.91 - Unspecified dementia with behavioral disturbance; F10.97 - Alcohol use, unspecified with alcohol- induced persisting dementia (3) HLD (hyperlipidemia) Code(s): E78.5 - HYPERLIPIDEMIA, UNSPECIFIED (4) HTN (hypertension) Code(s): I10 - ESSENTIAL (PRIMARY) HYPERTENSION Assessment/Plan Ortho consult reviewed. Will discharge back to [facility] with wbat and PT. Stable for discharge.
--- NOTE | 2016-10-29 10:35 | DS ---
Physical Examination Vital Signs: Vital Signs Temperature 98.3 F 10/29/16 04:05 Pulse Rate 70 10/29/16 04:05 Respiratory Rate 20 10/29/16 04:28 Blood Pressure 154/64 10/29/16 04:05 O2 Sat by Pulse Oximetry (%) 98 10/29/16 04:28 Constitutional: Yes: Well Nourished Eyes: Yes: Conjunctiva Clear, EOM Intact HENT: Yes: Atraumatic, Normocephalic Neck: Yes: Supple, Trachea Midline Cardiovascular: Yes: Regular Rate and Rhythm Respiratory: Yes: Regular, CTA Bilaterally Gastrointestinal: Yes: Normal Bowel Sounds, Soft Neurological: Yes: Alert ...Motor Strength: WNL Psychiatric: Yes: Alert Discharge Summary Reason For Visit: CLOSED AVULSION FRACTURE OF GREATER TROCHANTER OF Current Active Problems Closed avulsion fracture of greater trochanter of femur (Acute) Hospital Course: Admitted s/p fall with CT findings of right trochanteric fracture, moderate to severe pain and unsteady gait. Per Ortho - No surgical intervention. Will DC back to [facility]. WBAT and PT. Condition: Fair - Instructions Referrals: Bhavesh Escalante MD [Primary Care Provider] - - Home Medications Comprehensive Discharge Medication List: Ambulatory Orders Acetaminophen 2 tab PO DAILY PRN 06/10/16 Ascorbic Acid [Vitamin C -] 1 tab PO DAILY 06/10/16 Collagenase Clostridium Hist. [Santyl] 1 applic TP DAILY 06/10/16 Finasteride 1 tab PO DAILY 06/10/16 Multivitamin with Minerals [Icaps Plus] 1 tab PO DAILY 06/10/16 Tamsulosin HCl 1 tab PO HS 06/10/16 Trazodone HCl 37.5 mg PO HS 06/10/16 Atorvastatin Ca [Lipitor] 10 mg PO HS #30 tablet 08/07/16 Ferrous Sulfate [Feosol] 325 mg PO DAILY #30 tab 08/07/16 Neomy Sulf/Bacitrac Zn/Poly [Neosporin Top Ointment -] 1 applic TP BID #1 applic 08/07/16 Nystatin/Triamcinolone Top Cr [Mycolog II -] 1 applic TP BID #1 applic 08/07/16 Pantoprazole Sodium [Protonix -] 40 mg PO DAILY #30 tab 08/07/16 Polyethylene Glycol 3350 [Miralax 119 gm Btl -] 17 gm PO DAILY #30 bottle Quetiapine Fumarate [Seroquel -] 25 mg PO TID #30 tablet 08/07/16 Docusate Sodium [Colace -] 100 mg PO BID cap 10/21/16 Enoxaparin [Lovenox -] 40 mg SQ DAILY syr 10/21/16 Oxycodone HCl [Roxicodone -] 5 mg PO Q4H PRN #1 tablet MDD 30mg 10/21/16
[2016-10-29 12:07] VITALS: BP 150/94; PULSE 80; TEMP 98
--- NOTE | 2016-10-29 14:29 | EKG ---
Test Reason : Blood Pressure : / mmHG Vent. Rate : 076 BPM Atrial Rate : 076 BPM P-R Int : 128 ms QRS Dur : 084 ms QT Int : 392 ms P-R-T Axes : 064 -07 039 degrees QTc Int : 441 ms NORMAL SINUS RHYTHM NORMAL ECG WHEN COMPARED WITH ECG OF 20-OCT-2016 03:50, PREMATURE VENTRICULAR COMPLEXES ARE NO LONGER PRESENT Confirmed by LEVI PACHECO MD ([id number]) on 10/29/2016 2:28:48 PM Referred By: Confirmed By:LEVI PACHECO MD
[2016-10-29] MEDS ORDERED: ATORVASTATIN CA 10 MG TABLET (FP) PO SCH (22:00)
[2016-10-29] MEDS ORDERED: TAMSULOSIN HCL 0.4 MG CAP.ER.24H (FP) PO SCH (22:00)
== END 2016-10-29 14:20 ==
LOC: JER 16:52 → INTOOBSV 10-29 01:22 → UNDOADMOB 10-29 01:22 → JERBED 10-29 01:22 → J6S 10-29 03:57 → JERBED 10-29 10:35 → J6S 10-29 10:35
PROVIDERS: ADMIT Internal Medicine; ATTEND Internal Medicine
DX: S72.114D Nondisplaced fracture of greater trochanter of right femur, subsequent encounter for closed fracture with routine healing (principal); W18.30XD Fall on same level, unspecified, subsequent encounter; Z91.81 History of falling; I10 Essential (primary) hypertension; E11.9 Type 2 diabetes mellitus without complications; F03.90 Unspecified dementia, unspecified severity, without behavioral disturbance, psychotic disturbance, mood disturbance, and anxiety; N40.0 Benign prostatic hyperplasia without lower urinary tract symptoms; D64.9 Anemia, unspecified; J45.909 Unspecified asthma, uncomplicated; K21.9 Gastro-esophageal reflux disease without esophagitis; Z85.46 Personal history of malignant neoplasm of prostate; F41.9 Anxiety disorder, unspecified; Z87.440 Personal history of urinary (tract) infections
CPT/HCPCS: 36415; 73560-TC-RT; 73700-TC-RT; 80053; 84484; 85025; 93005; 93010; 99282-25; G0378

== ENCOUNTER 2017-11-08 21:51 | Inpatient (IN) | payer OTHER ==
--- NOTE | 2017-11-08 22:05 | PDOC ---
History of Present Illness - General Chief Complaint: Seizure Stated Complaint: SEIZURE Time Seen by Provider: 11/08/17 22:05 - History of Present Illness Initial Comments: 82 year old male with PMH of dementia, BPH, frequent UTI's, remote history of seizures (unmedicated), and DM presenting with seizure today and altered mental status. They saw the patient drop to the floor at 21:05 with tonic-clonic movements lasting 20 seconds then acutely altered afterwards until presentation at our ED. Patient is usually AOx3 and conversational but has been completely altered and incoherent since the incident. Per daughter at bedside, he behaved like this at one other point last year in the context of missing his home medications. However, he has taken all of his medication per his nursing facility. Facility denies recent strange behavior, fevers, chills, nausea, vomiting, diarrhea, chest pain, SOB, or other symptoms. 11/08/17 22:21 Past History - Past Medical History Allergies/Adverse Reactions: Allergies Allergy/AdvReac Type Severity Reaction Status Date / Time No Known Allergies Allergy Verified 11/08/17 22:10 Home Medications: Ambulatory Orders Acetaminophen 2 tab PO DAILY PRN 06/10/16 Ascorbic Acid [Vitamin C -] 1 tab PO DAILY 06/10/16 Collagenase Clostridium Hist. [Santyl] 1 applic TP DAILY 06/10/16 Finasteride 1 tab PO DAILY 06/10/16 Multivitamin with Minerals [Icaps Plus] 1 tab PO DAILY 06/10/16 Tamsulosin HCl 1 tab PO HS 06/10/16 traZODone HCL [Trazodone HCl] 37.5 mg PO HS 06/10/16 Atorvastatin Ca [Lipitor] 10 mg PO HS #30 tablet 08/07/16 Ferrous Sulfate [Feosol] 325 mg PO DAILY #30 tab 08/07/16 Neomy Sulf/Bacitrac Zn/Poly [Neosporin Top Ointment -] 1 applic TP BID #1 applic 08/07/16 Nystatin/Triamcinolone Top Cr [Mycolog II -] 1 applic TP BID #1 applic 08/07/16 Pantoprazole Sodium [Protonix -] 40 mg PO DAILY #30 tab 08/07/16 Polyethylene Glycol 3350 [Miralax 119 gm Btl -] 17 gm PO DAILY #30 bottle Quetiapine Fumarate [Seroquel -] 25 mg PO TID #30 tablet 08/07/16 Docusate Sodium [Colace -] 100 mg PO BID cap 10/21/16 Enoxaparin [Lovenox -] 40 mg SQ DAILY syr 10/21/16 oxyCODONE HCL [Roxicodone -] 5 mg PO Q4H PRN #1 tablet MDD 30mg 10/21/16 Anemia: Yes Asthma: Yes Cancer: No Dementia: Yes GI Disorders: Yes (gerd) Disorders: Yes (prostatic ca) HTN: Yes Psychiatric Problems: Yes (anxiety) - Immunization History Immunization Up to Date: No - Suicide/Smoking/Psychosocial Hx Smoking History: Unknown if ever smoked Have you smoked in the past 12 months: No Hx Alcohol Use: No Drug/Substance Use Hx: No Substance Use Type: None Hx Substance Use Treatment: No Review of Systems - Review of Systems Able to Perform ROS?: No (demented) *Physical Exam - Physical Exam General Appearance: Yes: Nourished, Appropriately Dressed, Apparent Distress, Severe Distress (delirious and agitated) HEENT: positive: EOMI, LAUREN, Normal ENT Inspection, Normal Voice Neck: positive: Trachea midline, Normal Thyroid, Supple. negative: Tender, Rigid Respiratory/Chest: positive: Lungs Clear, Normal Breath Sounds. negative: Chest Tender, Respiratory Distress, Accessory Muscle Use Cardiovascular: positive: Regular Rhythm, Tachycardia. negative: Regular Rate ED Treatment Course - LABORATORY CBC & Chemistry Diagram: 11/08/17 22:30 11/08/17 22:30 Medical Decision Making - Medical Decision Making 82 year old male with PMH of dementia and unspecified psychosis but AO x 3 per [facility] presenting with seizure for 20 seconds and AMS post seizure. Patient's labs were WNL and CT head/ CXR WNL. Patient joselitora loaded 1G and given a total of 3 of ativan + 5 of haldol for agitation for EG and head CT. Labs WNL with exception of minor hyponatremia and lactic acid elevation. 1 L NS given because of some slight pulm vascular congestion noted and repeat lactic acid ordered. Paged neurology x 2 without response. Spoke to JIMBO Fleming and will admit fur further AMS/ seizure workup. Please call Flakita Che (daughter ) [phone] for any questions/ updates. 10/02/18 01:43 *DC/Admit/Observation/Transfer Diagnosis at time of Disposition: Seizure Altered mental status Qualifiers: Altered mental status type: delirium Qualified Code(s): R41.0 - Disorientation , unspecified - Discharge Dispostion Condition at time of disposition: Fair Decision to Admit order: Yes - Referrals Referrals: Bhavesh Escalante MD [Primary Care Provider] - - Patient Instructions - Post Discharge Activity
[2017-11-08 22:39] LABS: BASO % 0.2 % (0-2.0); EOS % 0.6 % (0-4.5); HEMATOCRIT 40.8 % (35.4-49); HEMOGLOBIN 13.5 GM/dL (11.7-16.9); LYMPH % 9.3 % (8-40); MCH 29.4 pg (25.7-33.7); MCHC 33.2 g/dl (32.0-35.9); MEAN CELL VOLUME 88.4 fl (80-96); MONO % 3.3 % (3.8-10.2); NEUT % 86.6 % (42.8-82.8); PLATELET COUNT 173 K/MM3 (134-434); RBC 4.61 M/mm3 (4.00-5.60); RDW 13.8 % (11.9-15.9); WHITE BLOOD COUNT 10.3 K/mm3 (4.0-10.0)
[2017-11-08 22:42] LABS: VENOUS PC02 41.9 mmHg (38-52); VENOUS PH 7.41 (7.32-7.42); VENOUS PO2 50.3 mmHg (28-48)
[2017-11-08] MEDS ORDERED: LORazepam 2 MG/ML SDV VIAL ONE (22:50)
[2017-11-08 22:52] LABS: INR 1.06 (0.83-1.09); PROTHROMBIN TIME (PATIENT) 12.5 SEC (9.7-13.0)
--- NOTE | 2017-11-08 22:53 | PDOC ---
Attending Attestation - HPI HPI: 11/08/17 22:53 Patient is an 82 year old male from [facility] with a past medical history of seizures (untreated), hypertension and dementia who presents to the emergency department for evaluation of seizure and altered mental status. As per nurse from facility, the patient had a witnessed loss of consciousness and generalized tonic-clonic seizure at 905pm for a duration of 20 seconds. The nurse states the patient regained consciousness at 915pm. As per nurse, after the seizure, the patient had a blood pressure of 220/120, pulse of 135, blood sugar of 90, and was given oxygen via non-rebreather. As per nurse, the patient is A&Ox3 and incontinent at baseline. Denies fevers, chills, nausea, vomiting, prior to episode. - Physicial Exam PE: wnwd 82 y/o male in no acute distress head ncat. (+)Superficial laceration to tip of tongue. neck supple oropharynx no exudates neck supple Heart (+)tachycardic. No gallops, murmurs, or rubs. lungs clear to auscultation bilaterally abd soft,nontender, incontinent at baseline. ext no e/c/c, MAEx4. No deformities on arms or legs. skin warm and dry,no rashes Alert and moving extremities, significant dementia. <Les Bell - Last Filed: 11/09/17 00:22> - Resident Resident Name: ElginSlimelonny - ED Attending Attestation I have performed the following: I have examined & evaluated the patient, The case was reviewed & discussed with the resident, I agree w/resident's findings & plan, Exceptions are as noted - Medical Decision Making 11/09/17 17:45 ct scan head no acute intracranial pathology, no infarct,no acute bleed pt admitted for further neurology evaluation,pt loaded with keppra <Brianna Prieto - Last Filed: 11/09/17 17:46> Attestations - Attestations Documentation prepared by Les Bell, acting as medical reviewer for Brianna Prieto MD. <Les Bell - Last Filed: 11/09/17 00:22>
[2017-11-08 22:55] LABS: ACTIVATED PTT 30.2 SECONDS (25.2-36.5)
[2017-11-08 23:01] LABS: URINE APPEARANCE CLEAR; URINE BILIRUBIN NEGATIVE (<2.0 mg/dL); URINE COLOR LTYELLOW; URINE GLUCOSE (UA) NEGATIVE (NEGATIVE); URINE KETONE NEGATIVE (NEGATIVE); URINE LEUK ESTERASE NEGATIVE (NEGATIVE); URINE NITRITE NEGATIVE (NEGATIVE); URINE UROBILINOGEN NEGATIVE mg/dL (0.2-1.0)
[2017-11-08 23:04] LABS: URINE PROTEIN 2+ (NEGATIVE)
[2017-11-08 23:05] LABS: ALBUMIN 3.3 g/dl (3.4-5.0); ALK PHOS 65 U/L (45-117); ANION GAP 13 MMOL/L (8-16); BILIRUBIN,TOTAL 0.9 mg/dL (0.2-1); BLOOD UREA NITROGEN 8 mg/dL (7-18); CALCIUM 9.2 mg/dL (8.5-10.1); CHLORIDE 96 mmol/L (98-107); CO2 23 mmol/L (21-32); CREATININE 0.7 mg/dL (0.55-1.3); GLUCOSE,RANDOM 118 mg/dL (74-106); POTASSIUM 4.3 mmol/L (3.5-5.1); SGOT/AST 25 U/L (15-37); SGPT/ALT 27 U/L (13-61); SODIUM 132 mmol/L (136-145); TOT PROT 6.8 g/dl (6.4-8.2)
[2017-11-08] MEDS ORDERED: HALOPERIDOL LACTATE 5 MG/ML IM ONE (23:05)
[2017-11-08 23:09] LABS: EPI CELLS RARE /HPF (FEW); URINE HYALINE CAST 1 /lpf
[2017-11-08] MEDS ORDERED: HALOPERIDOL LACTATE 5 MG/ML ONE (23:12)
[2017-11-08] MEDS ORDERED: SODIUM CHLORIDE 0.9% 500 ML INFUS.BAG IV ONE (23:25)
[2017-11-09] MEDS ORDERED: LORazepam 2 MG/ML SDV VIAL ONE ×2 (00:24→14:44)
--- NOTE | 2017-11-09 01:51 | HP ---
Admitting History and Physical - Primary Care Physician PCP: Lawson Muir - Admission Chief Complaint: Seizure Activity History of Present Illness: 82 y/o man with a PMHx of Seizures (no anticonvulsant meds), Dementia, HTN, DM, BPH, UTIs. Who presents from [facility] with seizure activity and AMS. Per ED record: they saw the patient drop to the floor at 21:05 with tonic-clonic movements lasting 20 seconds then acutely altered afterwards until presentation at our ED. Patient is usually AAOx3 and conversational but has been completely altered and incoherent since the incident. Per daughter at bedside, he behaved like this at one other point last year in the context of missing his home medications. However, he has taken all of his medication per his nursing facility. Facility denies recent strange behavior, fevers, chills, nausea, vomiting, diarrhea, chest pain, SOB, or other symptoms. History Source: Medical Record, Transfer Record Limitations to Obtaining History: Clinical Condition, Dementia - Past Medical History [employer]: Yes: Dementia Cardiovascular: Yes: HTN Renal/: Yes: BPH - Advance Directives Advance Directives: Yes: Health Care Proxy - Smoking History Smoking history: Unknown if ever smoked Have you smoked in the past 12 months: No - Alcohol/Substance Use Hx Alcohol Use: No History of Substance Use: reports: None - Social History Usual Living Arrangement: Yes: Snf ADL: Support Services History of Recent Travel: No Home Medications - Allergies Allergies/Adverse Reactions: Allergies Allergy/AdvReac Type Severity Reaction Status Date / Time No Known Allergies Allergy Verified 11/08/17 22:10 - Home Medications Home Medications: Ambulatory Orders Acetaminophen 2 tab PO DAILY PRN 06/10/16 Ascorbic Acid [Vitamin C -] 1 tab PO DAILY 06/10/16 Finasteride 1 tab PO DAILY 06/10/16 Multivitamin with Minerals [Icaps Plus] 1 tab PO DAILY 06/10/16 Tamsulosin HCl 1 tab PO HS 06/10/16 Atorvastatin Ca [Lipitor] 10 mg PO HS #30 tablet 08/07/16 Ferrous Sulfate [Feosol] 325 mg PO DAILY #30 tab 08/07/16 Polyethylene Glycol 3350 [Miralax 119 gm Btl -] 17 gm PO DAILY #30 bottle Docusate Sodium [Colace -] 100 mg PO BID cap 10/21/16 Enoxaparin [Lovenox -] 40 mg SQ DAILY syr 10/21/16 Aa/Hydrolyzed Collagen, Whey [Lps 15-30 Liquid] 960 ml PO DAILY 11/09/17 Cholecalciferol (Vitamin D3) [Vitamin D3] 1,000 unit PO DAILY 11/09/17 Ranitidine [Zantac -] 150 mg PO DAILY 11/09/17 Albuterol 2.5/Ipratropium 0.5 [Duoneb -] 1 amp NEB RTID amp 11/17/17 Lidocaine 5% Patch [Lidoderm -] 2 patch TP DAILY patch 11/17/17 Lidocaine Patch Removal [Lidoderm Patch Removal] 1 each MC DAILY@2200 each 11/25 Metoprolol Tartrate [Lopressor -] 25 mg PO BID tablet 11/17/17 Quetiapine Fumarate [Seroquel -] 50 mg PO HS tablet 11/17/17 levETIRAcetam [Keppra -] 500 mg PO BID tablet 11/17/17 Family Disease History - Family Disease History Family History: Unable to Obtain Review of Systems Unable to obtain ROS, reason: Dementia Physical Examination Vital Signs: Vital Signs Temperature 98.9 F 11/08/17 23:01 Pulse Rate 129 H 11/08/17 21:55 Respiratory Rate 22 H 11/08/17 21:55 Blood Pressure 224/101 H 11/08/17 21:55 O2 Sat by Pulse Oximetry (%) 96 11/08/17 21:55 Constitutional: Yes: Well Nourished, No Distress, Calm Eyes: Yes: Conjunctiva Clear, PERRL (pin point) HENT: Yes: WNL, Atraumatic, Normocephalic Neck: Yes: WNL, Supple, Trachea Midline Cardiovascular: Yes: WNL, Regular Rate and Rhythm, S1, S2 Respiratory: Yes: WNL, Regular, CTA Bilaterally Gastrointestinal: Yes: WNL, Normal Bowel Sounds, Soft Renal/: Yes: Incontinence Breast(s): Yes: WNL Musculoskeletal: Yes: WNL Edema: No Peripheral Pulses WNL: Yes Integumentary: Yes: WNL Neurological: Yes: Other (postictal). No: Seizure Labs: CBC, BMP 11/08/17 22:30 11/08/17 22:30 Problem List - Problems (1) Seizures Assessment/Plan: - Hx of Seizures no current meds - Keppra given in ED, will continue - Appreciate Neurology consult - Seizure Precautions - Aspiration Precautions - Fall Precautions - Monitor CBC, BMP - Monitor vitals - Consider EEG will defer to Neuro Code(s): R56.9 - UNSPECIFIED CONVULSIONS (2) Metabolic encephalopathy Assessment/Plan: - Unknown source - Does not appear infectious - Possible due to missed Seroquel dose - Fall Precautions - Neurochecks Code(s): G93.41 - METABOLIC ENCEPHALOPATHY (3) Dementia Assessment/Plan: - not controlled - Ativan, Haldol given in ED - Fall Precautions - Resume meds when appropriate Code(s): F03.90 - UNSPECIFIED DEMENTIA WITHOUT BEHAVIORAL DISTURBANCE Qualifiers: Dementia type: unspecified type Dementia behavioral disturbance: with behavioral disturbance Qualified Code(s): F03.91 - Unspecified dementia with behavioral disturbance (4) Lactic acid acidosis Assessment/Plan: - Likely secondary to Seizure Activity - NS bolus given in ED - Will trend LA - No evidence of Sepsis criteria at this time Code(s): E87.2 - ACIDOSIS (5) HTN (hypertension) Assessment/Plan: - Not controlled - Likely secondary to Seizure Activity - Monitor BP - Will hold home med till cleared by Neuro - Will give IV antihypertensive as indicated for BP control - Monitor renal function Code(s): I10 - ESSENTIAL (PRIMARY) HYPERTENSION (6) HLD (hyperlipidemia) Assessment/Plan: - stable - Will resume home med when cleared by Neuro secondary to Seizure Activity Code(s): E78.5 - HYPERLIPIDEMIA, UNSPECIFIED (7) BPH (benign prostatic hyperplasia) Assessment/Plan: - stable - Resume home med when cleared by Neuro Code(s): N40.0 - BENIGN PROSTATIC HYPERPLASIA WITHOUT LOWER URINRY TRACT SYMP (8) DVT prophylaxis Assessment/Plan: - SCDs - Heparin SQ Code(s): [id number] - Assessment/Plan 82 y/o man with a PMHx of Seizures (no anticonvulsant meds), Dementia, HTN, DM, BPH, UTIs. Who presents from [facility] with seizure activity and AMS. Admitted to Telemetry for Seizures, AMS likely secondary to Metabolic Encephalopathy for further evaluation of their emergent condition. Plan: FEN D51/2NS@42ml/hr Replete lytes prn NPO DVT ppx SCDs Heparin SQ Code Status: Full Code Dispo: Requires Inpatient Care Visit type - Emergency Visit Emergency Visit: Yes ED Registration Date: 11/08/17 Care time: The patient presented to the Emergency Department on the above date and was hospitalized for further evaluation of their emergent condition. - New Patient This patient is new to me today: Yes Date on this admission: 11/09/17 - Critical Care Critical Care patient: No
[2017-11-09] MEDS ORDERED: levETIRAcetam 500 MG/5 ML INJECTION VIAL IVPB ONE ×3 (02:17→12:30)
[2017-11-09] MEDS: DEXTROSE 5%-0.45% SALINE 1,000 ML IV SCH ×2 (02:33→13:50)
[2017-11-09 07:01] LABS: BASO % 0.4 % (0-2.0); EOS % 0.4 % (0-4.5); HEMATOCRIT 41.6 % (35.4-49); HEMOGLOBIN 13.5 GM/dL (11.7-16.9); LYMPH % 7.9 % (8-40); MCH 28.7 pg (25.7-33.7); MCHC 32.4 g/dl (32.0-35.9); MEAN CELL VOLUME 88.7 fl (80-96); MEAN PLT VOLUME 8.8 fl (7.5-11.1); MONO % 5.5 % (3.8-10.2); NEUT % 85.8 % (42.8-82.8); PLATELET COUNT 151 K/MM3 (134-434); RBC 4.69 M/mm3 (4.00-5.60); RDW 13.8 % (11.9-15.9); WHITE BLOOD COUNT 12.8 K/mm3 (4.0-10.0)
[2017-11-09 07:19] LABS: ANION GAP 8 MMOL/L (8-16); BLOOD UREA NITROGEN 9 mg/dL (7-18); CALCIUM 8.8 mg/dL (8.5-10.1); CHLORIDE 101 mmol/L (98-107); CO2 28 mmol/L (21-32); CREATININE 0.8 mg/dL (0.55-1.3); GLUCOSE,RANDOM 87 mg/dL (74-106); MAGNESIUM 1.8 mg/dL (1.8-2.4); PHOSPHOROUS 2.4 mg/dL (2.5-4.9); SODIUM 136 mmol/L (136-145)
--- NOTE | 2017-11-09 08:31 | CON.NEURO ---
Consult - History of Present Illness History of Present Illness: 82 y/o man with a PMHx of Seizures (no anticonvulsant meds), Dementia, HTN, DM, BPH, UTIs. Who presents from [facility] with seizure activity and AMS. Per ED record: they saw the patient drop to the floor at 21:05 with tonic-clonic movements lasting 20 seconds then acutely altered afterwards until presentation at our ED. Patient is usually AAOx3 and conversational but has been completely altered and incoherent since the incident. Per daughter at bedside, he behaved like this at one other point last year in the context of missing his home medications. However, he has taken all of his medication per his nursing facility. Facility denies recent strange behavior, fevers, chills, nausea, vomiting, diarrhea, chest pain, SOB, or other symptoms. CT HD prelim, no mass, infract, ? 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 Cardio/Vascular: Yes: HTN Renal/: Yes: BPH - Alcohol/Substance Use Hx Alcohol Use: No History of Substance Use: reports: None - Smoking History Smoking history: Unknown if ever smoked Have you smoked in the past 12 months: No - Social History ADL: Support Services History of Recent Travel: No Home Medications - Allergies Allergies/Adverse Reactions: Allergies Allergy/AdvReac Type Severity Reaction Status Date / Time No Known Allergies Allergy Verified 11/08/17 22:10 - Home Medications Home Medications: Ambulatory Orders Acetaminophen 2 tab PO DAILY PRN 06/10/16 Ascorbic Acid [Vitamin C -] 1 tab PO DAILY 06/10/16 Finasteride 1 tab PO DAILY 06/10/16 Multivitamin with Minerals [Icaps Plus] 1 tab PO DAILY 06/10/16 Tamsulosin HCl 1 tab PO HS 06/10/16 traZODone HCL [Trazodone HCl] 50 mg PO HS 06/10/16 Atorvastatin Ca [Lipitor] 10 mg PO HS #30 tablet 08/07/16 Ferrous Sulfate [Feosol] 325 mg PO DAILY #30 tab 08/07/16 Polyethylene Glycol 3350 [Miralax 119 gm Btl -] 17 gm PO DAILY #30 bottle Docusate Sodium [Colace -] 100 mg PO BID cap 10/21/16 Enoxaparin [Lovenox -] 40 mg SQ DAILY syr 10/21/16 Aa/Hydrolyzed Collagen, Whey [Lps 15-30 Liquid] 960 ml PO DAILY 11/09/17 Cholecalciferol (Vitamin D3) [Vitamin D3] 1,000 unit PO DAILY 11/09/17 Quetiapine Fumarate [Seroquel -] 50 mg PO TID 11/09/17 Ranitidine [Zantac -] 150 mg PO DAILY 11/09/17 Physical Exam-Neuro Vital Signs: Vital Signs Temperature 98.9 F 11/08/17 23:01 Pulse Rate 89 11/09/17 05:01 Respiratory Rate 19 11/09/17 05:01 Blood Pressure 144/87 11/09/17 05:01 O2 Sat by Pulse Oximetry (%) 99 11/09/17 05:01 Labs: CBC, BMP 11/09/17 06:20 11/09/17 06:20 INR, PTT INR 1.06 (0.83-1.09) 11/08/17 22:30 - Neuro Exam Level Of Consciousness: Yes: Sedated (sleepy, not answering, or following commands, no clear focal weakness, shivering, plantars down ) Imaging - Results Cat Scan: Report Reviewed, Image Reviewed Problem List - Problems (1) Seizures Code(s): R56.9 - UNSPECIFIED CONVULSIONS (2) Dementia Code(s): F03.90 - UNSPECIFIED DEMENTIA WITHOUT BEHAVIORAL DISTURBANCE Qualifiers: Dementia type: unspecified type Dementia behavioral disturbance: with behavioral disturbance Qualified Code(s): F03.91 - Unspecified dementia with behavioral disturbance Assessment/Plan 82 y/o man with a PMHx of Seizures (no anticonvulsant meds), Dementia, HTN, DM, BPH, UTIs. Who presents from [facility] with seizure activity and AMS. Per ED record: they saw the patient drop to the floor at 21:05 with tonic-clonic movements lasting 20 seconds then acutely altered afterwards until presentation at our ED. Patient is usually AAOx3 and conversational but has been completely altered and incoherent since the incident. Per daughter at bedside, he behaved like this at one other point last year in the context of missing his home medications. However, he has taken all of his medication per his nursing facility. Facility denies recent strange behavior, fevers, chills, nausea, vomiting, diarrhea, chest pain, SOB, or other symptoms. CT HD prelim, no mass, infract, ? hygroma L >R-- official --read as only volume loss given Keppra in ER AP : known HX of seziures with seziure breakthrough maintain Keppra 500BID CT no acute changes UA (-), no other clear metabolic culprits underlying dementia-- team to decipher his baseline please call back PRN DR EASTMAN
[2017-11-09] MEDS ORDERED: levETIRAcetam 500 MG/5 ML INJECTION VIAL IVPB SCH ×2 (10:00→11:15)
--- NOTE | 2017-11-09 10:42 | EKG ---
Test Reason : Blood Pressure : / mmHG Vent. Rate : 090 BPM Atrial Rate : 090 BPM P-R Int : 202 ms QRS Dur : 088 ms QT Int : 360 ms P-R-T Axes : 095 -28 026 degrees QTc Int : 440 ms NORMAL SINUS RHYTHM NORMAL ECG WHEN COMPARED WITH ECG OF 28-OCT-2016 20:04, NO SIGNIFICANT CHANGE WAS FOUND Confirmed by Evens Main MD ([id number]) on 11/09/2017 10:42:19 AM Referred By: Confirmed By:Evens Main MD
--- NOTE | 2017-11-09 11:13 | PN ---
Progress Note, Physician Chief Complaint: Unable to obtain - Current Medication List Current Medications: Active Medications Dextrose/Sodium Chloride (D5-1/2ns -) 1,000 mls @ 42 mls/hr IV ASDIR CORNELIO Last Admin: 11/09/17 02:33 Dose: 42 mls/hr - Objective Vital Signs: Vital Signs Temperature 36.8 C 11/09/17 09:26 Pulse Rate 98 H 11/09/17 09:26 Respiratory Rate 19 11/09/17 09:26 Blood Pressure 172/91 H 11/09/17 09:26 O2 Sat by Pulse Oximetry (%) 99 11/09/17 05:01 Constitutional: Yes: Well Nourished, Other (altered) Cardiovascular: Yes: Regular Rate and Rhythm. No: Gallop, Murmur, Rub Respiratory: Yes: Regular, CTA Bilaterally. No: Rales, Rhonchi, Wheezes Gastrointestinal: Yes: Normal Bowel Sounds, Soft. No: Distention, Tenderness Extremities: Yes: WNL Edema: No Labs: CBC, BMP 11/09/17 06:20 11/09/17 06:20 INR, PTT INR 1.06 (0.83-1.09) 11/08/17 22:30 Problem List - Problems (1) Seizures Assessment/Plan: -patient with seizure at [facility] -received IV keppra in the ED -seen by neurology and note reviewed -continue keppra 500mg bid -may need to change to IV keppra if not taking oral Code(s): R56.9 - UNSPECIFIED CONVULSIONS (2) Dementia Assessment/Plan: -on trazadone and seroquel as an outpatient -however altered and unable to swallow -prn IV ativan -monitor for improvement Code(s): F03.90 - UNSPECIFIED DEMENTIA WITHOUT BEHAVIORAL DISTURBANCE Qualifiers: Dementia type: unspecified type Dementia behavioral disturbance: with behavioral disturbance Qualified Code(s): F03.91 - Unspecified dementia with behavioral disturbance (3) HLD (hyperlipidemia) Assessment/Plan: -restart lipitor when able to take po Code(s): E78.5 - HYPERLIPIDEMIA, UNSPECIFIED (4) HTN (hypertension) Assessment/Plan: -metoprolol 5mg IV q6h prn HTN -restart oral medications when able to take po Code(s): I10 - ESSENTIAL (PRIMARY) HYPERTENSION (5) Metabolic encephalopathy Assessment/Plan: -unclear source -does not appear infectious -possibly secondary to not receiving seroquel -trial of IV ativan Code(s): G93.41 - METABOLIC ENCEPHALOPATHY
[2017-11-09] MEDS: levETIRAcetam 500 MG TABLET (FP) PO SCH (12:41)
[2017-11-09] MEDS: LORazepam 2 MG/ML SDV VIAL IVPUSH PRN ×2 (14:55→20:51)
[2017-11-09] MEDS ORDERED: LABETALOL HCL 5 MG/1 ML (100MG/20 ML VIAL) IVPUSH ONE (15:24)
[2017-11-09] MEDS ORDERED: METOPROLOL TARTRATE 5 MG/5 ML VIAL IVPUSH ONE (15:25)
[2017-11-09] MEDS ORDERED: METOPROLOL TARTRATE 5 MG/5 ML VIAL ONE (15:42)
[2017-11-09] MEDS: METOPROLOL TARTRATE 5 MG/5 ML VIAL IVPUSH PRN (20:44)
[2017-11-09] MEDS: levETIRAcetam 500 MG/5 ML INJECTION VIAL IVPB SCH (21:00)
[2017-11-09 23:45] VITALS: BMI 44.1
[2017-11-10] MEDS: METOPROLOL TARTRATE 5 MG/5 ML VIAL IVPUSH PRN (00:47)
[2017-11-10] MEDS: ACETAMINOPHEN 650 MG SUPP.RECT PR PRN (01:37)
[2017-11-10 08:12] LABS: BASO % 0.3 % (0-2.0); EOS % 2.7 % (0-4.5); HEMATOCRIT 41.4 % (35.4-49); HEMOGLOBIN 13.8 GM/dL (11.7-16.9); LYMPH % 8.4 % (8-40); MCH 29.7 pg (25.7-33.7); MCHC 33.3 g/dl (32.0-35.9); MEAN CELL VOLUME 89.4 fl (80-96); MONO % 6.8 % (3.8-10.2); NEUT % 81.8 % (42.8-82.8); PLATELET COUNT 151 K/MM3 (134-434); RBC 4.63 M/mm3 (4.00-5.60); RDW 13.9 % (11.9-15.9); WHITE BLOOD COUNT 9.1 K/mm3 (4.0-10.0)
[2017-11-10 08:13] LABS: ANION GAP 8 MMOL/L (8-16); BLOOD UREA NITROGEN 13 mg/dL (7-18); CALCIUM 8.2 mg/dL (8.5-10.1); CHLORIDE 98 mmol/L (98-107); CO2 27 mmol/L (21-32); CREATININE 0.6 mg/dL (0.55-1.3); GLUCOSE,RANDOM 81 mg/dL (74-106); MAGNESIUM 1.9 mg/dL (1.8-2.4); PHOSPHOROUS 2.8 mg/dL (2.5-4.9); POTASSIUM 3.9 mmol/L (3.5-5.1); SODIUM 133 mmol/L (136-145)
[2017-11-10] MEDS ORDERED: PNEUMOC 13-VAL CONJ-DIP CRM/PF 0.5 ML DISP.SYRIN IM ONE (10:00)
[2017-11-10] MEDS: levETIRAcetam 500 MG/5 ML INJECTION VIAL IVPB SCH ×2 (11:35→21:27)
[2017-11-10] MEDS: DEXTROSE 5%-0.45% SALINE 1,000 ML IV SCH (11:35)
--- NOTE | 2017-11-10 12:10 | PN ---
Progress Note, Physician Chief Complaint: Unable to obtain - Current Medication List Current Medications: Active Medications Acetaminophen (Tylenol Suppository -) 650 mg [place] Q6H PRN PRN Reason: FEVER Last Admin: 11/10/17 01:37 Dose: 650 mg Dextrose/Sodium Chloride (D5-1/2ns -) 1,000 mls @ 42 mls/hr IV ASDIR [facility] Last Admin: 11/10/17 11:35 Dose: Not Given Levetiracetam (Keppra -) 500 mg PO BID [facility] Last Admin: 11/09/17 12:41 Dose: Not Given Levetiracetam (Keppra Injection -) 500 mg IVPB BID [facility] Last Admin: 11/10/17 11:35 Dose: 500 mg Lorazepam (Ativan Injection -) 1 mg IVPUSH BID PRN PRN Reason: ANXIETY Last Admin: 11/09/17 20:51 Dose: 1 mg Metoprolol Tartrate (Lopressor Injection -) 5 mg IVPUSH Q4H PRN PRN Reason: HYPERTENSION Last Admin: 11/10/17 00:47 Dose: 5 mg - Objective Vital Signs: Vital Signs Temperature 37.5 C 11/10/17 06:00 Pulse Rate 65 11/10/17 06:00 Respiratory Rate 18 11/10/17 06:00 Blood Pressure 163/78 11/10/17 06:00 O2 Sat by Pulse Oximetry (%) 97 11/09/17 20:00 Constitutional: Yes: No Distress, Calm, Thin (somnolent) Cardiovascular: Yes: Regular Rate and Rhythm. No: Gallop, Murmur, Rub Respiratory: Yes: Regular, CTA Bilaterally. No: Rales, Rhonchi, Wheezes Gastrointestinal: Yes: Normal Bowel Sounds, Soft. No: Distention, Tenderness Extremities: Yes: WNL Edema: No Labs: CBC, BMP 11/10/17 05:30 11/10/17 05:30 INR, PTT INR 1.06 (0.83-1.09) 11/08/17 22:30 Problem List - Problems (1) Seizures Code(s): R56.9 - UNSPECIFIED CONVULSIONS (2) Dementia Code(s): F03.90 - UNSPECIFIED DEMENTIA WITHOUT BEHAVIORAL DISTURBANCE Qualifiers: Dementia type: unspecified type Dementia behavioral disturbance: with behavioral disturbance Qualified Code(s): F03.91 - Unspecified dementia with behavioral disturbance (3) HLD (hyperlipidemia) Code(s): E78.5 - HYPERLIPIDEMIA, UNSPECIFIED (4) HTN (hypertension) Code(s): I10 - ESSENTIAL (PRIMARY) HYPERTENSION (5) Metabolic encephalopathy Code(s): G93.41 - METABOLIC ENCEPHALOPATHY Assessment/Plan (1) Seizures Assessment/Plan: -continue IV keppra currently -change to oral keppra when safe Code(s): R56.9 - UNSPECIFIED CONVULSIONS (2) Dementia Assessment/Plan: -on trazadone and seroquel as an outpatient -however altered and unable to swallow -prn IV ativan -patient remains somnolent today but seeing soon after receiving IV keppra Code(s): F03.90 - UNSPECIFIED DEMENTIA WITHOUT BEHAVIORAL DISTURBANCE Qualifiers: Dementia type: unspecified type Dementia behavioral disturbance: with behavioral disturbance Qualified Code(s): F03.91 - Unspecified dementia with behavioral disturbance (3) HLD (hyperlipidemia) Assessment/Plan: -restart lipitor when able to take po Code(s): E78.5 - HYPERLIPIDEMIA, UNSPECIFIED (4) HTN (hypertension) Assessment/Plan: -metoprolol 5mg IV q4h prn HTN -restart oral medications when able to take po Code(s): I10 - ESSENTIAL (PRIMARY) HYPERTENSION (5) Metabolic encephalopathy Assessment/Plan: -very somnolent today -leukocytosis resolved -rectal temperature elevation -however cultures are negative -continue to monitor -speech therapy consulted Code(s): G93.41 - METABOLIC ENCEPHALOPATHY
--- NOTE | 2017-11-10 12:34 | CONSULT ---
Admitting History and Physical - Primary Care Physician PCP: Yefri Andino - Admission History of Present Illness: 82 y/o man with a PMHx of Seizures (no anticonvulsant meds), Dementia, HTN, DM, BPH, UTIs. Who presents from [facility] with seizure activity and AMS Selected Entries 11/09/17 11/09/17 11/09/17 09:26 14:50 17:16 Breakfast Temperature 98.2 F 98.2 F 98.0 F 11/10/17 11/10/17 11/10/17 02:09 06:00 10:00 Breakfast NPO Temperature 100.6 F H 99.5 F Laboratory Tests 11/08/17 11/09/17 11/10/17 22:30 06:20 05:30 WBC 10.3 H 12.8 H 9.1 This is my first consult with this pt. 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 ACCOUNT ASSISTANT: Yes: Dementia Cardiovascular: Yes: HTN Renal/: Yes: BPH - Advance Directives Advance Directives: Yes: Health Care Proxy - Smoking History Smoking history: Unknown if ever smoked Have you smoked in the past 12 months: No - Alcohol/Substance Use Hx Alcohol Use: No History of Substance Use: reports: None - Social History ADL: Support Services History of Recent Travel: No History - Admission Reason For Visit: SEIZURE ALTERED MENTAL STATUS - Diagnostics X-ray: Report Reviewed CT Scan: Report Reviewed - General Mental Status: Vague, Confused, Lethargic (arousable) Attention: Moderate Impairment Ability to Follow Directions: Fair Head/Neck Control: Needs Assist - Hearing Hearing Aide: No Speech Evaluation - Communication Primary Language: OCCITAN Communication: Yes: Simple Responses (c/o "pain in back") - Speech Production Intelligibility: Yes: Moderately Impaired - Speech Characteristics Voice Loudness: Mildly Soft/Quiet Voice Pitch: Yes: Normal Voice Phonatory-based Quality: Yes: Normal Speech Clarity: < 75% Articulation: Yes: Imprecise Rate of Speech: Too Slow - Language/Auditory Comprehension Follows: Yes: 1 Stage Simple Commands - Swallow Evaluation/Bedside Assessment Current Nutritional Intake: NPO Oral Secretions: Yes: WFL Dentition: Yes: Missing Teeth Against Resistance Opening: Weak Against Resistance Closing: Weak Pucker Lips: Weak Smile: Weak Lingual Movement: Symmetric Lingual Speed of Movement: Reduced Lingual Movement Strgth Against Opposition: Reduced Laryngeal Movement: Labored,delay initiation, Reduced Velocity Rate of Intake: Slow/Holding Bolus Size: Small Labial Seal: Impaired Bilaterally (weak) Chewing: Impaired Oral Prep Time: Increased A-P Transit: Impaired Timing of Swallow: Delayed Coughing/Throat Clear: No Change in Voice: No Recommendations - Speech Evaluation, Impression/Plan Impression: Lethargic, arousable. Delayed swallow, with reduced laryngeal excursion. Risk of aspiration. Snoring when HOB to 40 degrees on back. - Disposition [facility] to: [facility] - Dysphagia Impressions/Plan Swallowing Skills: Impaired Dysphagia Impressions: Mild Impairment, Moderate Impairment *Silent aspiration: cannot be R/O at bedside Dysphagia Treatment Plan: Small Bites, Chin Tuck/Down, Safe Rate, 1/2 tsp. at a time, Elevate HOB during feed, Other (Feed only when alert. Monitor tolerance. Encourage 2 hsard swallow per 1/2 tsp.) Recommendations: Modified Barium Swallow (NPO if s/s of swallowing difficulty.) - Recommendations Diet Consistency: Dysphagia Pureed Medication Administration: Crushed with applesauce Liquids: Honey Thick Supplement: Magic Cup
[2017-11-11 07:14] LABS: BASO % 0.4 % (0-2.0); EOS % 0.8 % (0-4.5); HEMATOCRIT 43.6 % (35.4-49); HEMOGLOBIN 14.2 GM/dL (11.7-16.9); LYMPH % 9.1 % (8-40); MCH 28.8 pg (25.7-33.7); MCHC 32.5 g/dl (32.0-35.9); MEAN CELL VOLUME 88.5 fl (80-96); MEAN PLT VOLUME 9.5 fl (7.5-11.1); MONO % 9.7 % (3.8-10.2); PLATELET COUNT 130 K/MM3 (134-434); RBC 4.92 M/mm3 (4.00-5.60); RDW 13.5 % (11.9-15.9); WHITE BLOOD COUNT 12.6 K/mm3 (4.0-10.0)
[2017-11-11 07:45] LABS: ANION GAP 9 MMOL/L (8-16); BLOOD UREA NITROGEN 16 mg/dL (7-18); CALCIUM 8.2 mg/dL (8.5-10.1); CHLORIDE 100 mmol/L (98-107); CO2 23 mmol/L (21-32); CREATININE 0.5 mg/dL (0.55-1.3); GLUCOSE,RANDOM 99 mg/dL (74-106); MAGNESIUM 1.9 mg/dL (1.8-2.4); PHOSPHOROUS 2.3 mg/dL (2.5-4.9); SODIUM 131 mmol/L (136-145)
[2017-11-11] MEDS: levETIRAcetam 500 MG/5 ML INJECTION VIAL IVPB SCH ×2 (09:24→22:03)
[2017-11-11] MEDS: DEXTROSE 5%-0.45% SALINE 1,000 ML IV SCH (09:24)
--- NOTE | 2017-11-11 12:26 | PN ---
Progress Note, Physician Chief Complaint: Mr Mcdonald is awake today and speaking but very unclear, still unable to obtain subjective - Current Medication List Current Medications: Active Medications Acetaminophen (Tylenol Suppository -) 650 mg [place] Q6H PRN PRN Reason: FEVER Last Admin: 11/10/17 01:37 Dose: 650 mg Dextrose/Sodium Chloride (D5-1/2ns -) 1,000 mls @ 42 mls/hr IV ASDIR CORNELIO Last Admin: 11/11/17 09:24 Dose: 42 mls/hr Levetiracetam (Keppra -) 500 mg PO BID CORNELIO Last Admin: 11/09/17 12:41 Dose: Not Given Levetiracetam (Keppra Injection -) 500 mg IVPB BID [facility] Last Admin: 11/11/17 09:24 Dose: 500 mg Lorazepam (Ativan Injection -) 1 mg IVPUSH BID PRN PRN Reason: ANXIETY Last Admin: 11/09/17 20:51 Dose: 1 mg Metoprolol Tartrate (Lopressor Injection -) 5 mg IVPUSH Q4H PRN PRN Reason: HYPERTENSION Last Admin: 11/10/17 00:47 Dose: 5 mg - Objective Vital Signs: Vital Signs Temperature 37.6 C 11/11/17 09:00 Pulse Rate 109 H 11/11/17 09:00 Respiratory Rate 20 11/11/17 09:00 Blood Pressure 153/74 11/11/17 09:00 O2 Sat by Pulse Oximetry (%) 100 11/11/17 10:00 Constitutional: Yes: Well Nourished, No Distress, Calm HENT: Yes: Thrush Cardiovascular: Yes: Tachycardia. No: Pulse Irregular, Gallop, Murmur, Rub Respiratory: Yes: Regular, CTA Bilaterally. No: Rales, Rhonchi, Wheezes Gastrointestinal: Yes: Normal Bowel Sounds, Soft. No: Distention, Tenderness Extremities: Yes: WNL Edema: No Labs: CBC, BMP 11/11/17 06:26 11/11/17 06:26 INR, PTT INR 1.06 (0.83-1.09) 11/08/17 22:30 Problem List - Problems (1) Seizures Code(s): R56.9 - UNSPECIFIED CONVULSIONS (2) Dementia Code(s): F03.90 - UNSPECIFIED DEMENTIA WITHOUT BEHAVIORAL DISTURBANCE Qualifiers: Dementia type: unspecified type Dementia behavioral disturbance: with behavioral disturbance Qualified Code(s): F03.91 - Unspecified dementia with behavioral disturbance (3) HLD (hyperlipidemia) Code(s): E78.5 - HYPERLIPIDEMIA, UNSPECIFIED (4) HTN (hypertension) Code(s): I10 - ESSENTIAL (PRIMARY) HYPERTENSION (5) Metabolic encephalopathy Code(s): G93.41 - METABOLIC ENCEPHALOPATHY Assessment/Plan (1) Seizures Assessment/Plan: -continue IV keppra currently -change to oral keppra when safe Code(s): R56.9 - UNSPECIFIED CONVULSIONS (2) Dementia Assessment/Plan: -patient more awake today -restart seroquel -will hold pm trazadone at this time -continue IV ativan -continue restraints at this time Code(s): F03.90 - UNSPECIFIED DEMENTIA WITHOUT BEHAVIORAL DISTURBANCE Qualifiers: Dementia type: unspecified type Dementia behavioral disturbance: with behavioral disturbance Qualified Code(s): F03.91 - Unspecified dementia with behavioral disturbance (3) HLD (hyperlipidemia) Assessment/Plan: -restart lipitor today Code(s): E78.5 - HYPERLIPIDEMIA, UNSPECIFIED (4) HTN (hypertension) Assessment/Plan: -metoprolol 5mg IV q4h prn HTN -metoprolol 25mg bid started today Code(s): I10 - ESSENTIAL (PRIMARY) HYPERTENSION (5) Metabolic encephalopathy Assessment/Plan: -awake -restart oral medications -monitor for improvements Code(s): G93.41 - METABOLIC ENCEPHALOPATHY (6) Thrush -nystatin swish and swallow
[2017-11-11] MEDS: LORazepam 2 MG/ML SDV VIAL IVPUSH PRN (12:44)
--- NOTE | 2017-11-11 13:58 | PN ---
Progress Note, SEISMOGRAPH SUPERVISOR - Note Progress Note: Selected Entries 11/10/17 11/10/17 11/10/17 02:09 06:00 14:00 Temperature 100.6 F H 99.5 F 97.1 F L 11/10/17 11/10/17 11/11/17 17:00 22:00 01:48 Temperature 99.2 F 99.1 F 98.6 F 11/11/17 11/11/17 11/11/17 05:00 09:00 13:41 Temperature 97.9 F 99.6 F 99.3 F Laboratory Tests 11/09/17 11/10/17 06:20 05:30 WBC 12.8 H 9.1 Puree/honey TL ordered. Pt was more alert when fed. Feed slowly, HOB elevated, chin to neutral or tucked down. No continuous drinking. Monitor PO tolerance.
[2017-11-11] MEDS: QUEtiapine FUMARATE 25 MG TABLET (FP) PO SCH ×2 (14:10→22:04)
[2017-11-11] MEDS: NYSTATIN 500,000 UNITS/5 ML SUSPENSION PO SCH (17:08)
[2017-11-11] MEDS: DOCUSATE SODIUM 100 MG CAPSULE (FP) PO SCH (22:03)
[2017-11-11] MEDS: TAMSULOSIN HCL 0.4 MG CAP PO SCH (22:03)
[2017-11-11] MEDS: ATORVASTATIN CA 10 MG TABLET (FP) PO SCH (22:03)
[2017-11-11] MEDS: METOPROLOL TARTRATE 25 MG TABLET (FP) PO SCH (22:03)
[2017-11-12] MEDS: NYSTATIN 500,000 UNITS/5 ML SUSPENSION PO SCH ×4 (00:37→18:41)
[2017-11-12] MEDS: DEXTROSE 5%-0.45% SALINE 1,000 ML IV SCH (02:15)
[2017-11-12] MEDS: QUEtiapine FUMARATE 25 MG TABLET (FP) PO SCH (06:16)
[2017-11-12 07:05] LABS: BASO % 0.3 % (0-2.0)
[2017-11-12 07:07] LABS: EOS % 2.8 % (0-4.5); HEMATOCRIT 40.1 % (35.4-49); HEMOGLOBIN 13.1 GM/dL (11.7-16.9); LYMPH % 12.4 % (8-40); MCH 28.7 pg (25.7-33.7); MCHC 32.7 g/dl (32.0-35.9); MEAN CELL VOLUME 87.9 fl (80-96); MEAN PLT VOLUME 9.6 fl (7.5-11.1); MONO % 11.7 % (3.8-10.2); NEUT % 72.8 % (42.8-82.8); PLATELET COUNT 163 K/MM3 (134-434); RBC 4.56 M/mm3 (4.00-5.60); RDW 13.4 % (11.9-15.9); WHITE BLOOD COUNT 11.7 K/mm3 (4.0-10.0)
[2017-11-12 07:32] LABS: ANION GAP 9 MMOL/L (8-16); BLOOD UREA NITROGEN 20 mg/dL (7-18); CALCIUM 8.8 mg/dL (8.5-10.1); CHLORIDE 102 mmol/L (98-107); CO2 25 mmol/L (21-32); CREATININE 0.6 mg/dL (0.55-1.3); GLUCOSE,RANDOM 96 mg/dL (74-106); MAGNESIUM 1.9 mg/dL (1.8-2.4); PHOSPHOROUS 2.4 mg/dL (2.5-4.9); POTASSIUM 3.6 mmol/L (3.5-5.1); SODIUM 136 mmol/L (136-145)
--- NOTE | 2017-11-12 11:30 | PN ---
Progress Note, DIAGNOSTIC TECHNICIAN - Note Progress Note: Selected Entries 11/11/17 11/11/17 11/11/17 01:48 05:00 09:00 Supper Temperature 98.6 F 97.9 F 99.6 F 11/11/17 11/11/17 11/11/17 13:41 17:00 21:00 Supper Temperature 99.3 F 98.5 F 98.3 F 11/11/17 11/12/17 11/12/17 22:00 01:26 05:00 Supper 50% Temperature 98.3 F 98.4 F 98.1 F Laboratory Tests 11/11/17 11/12/17 06:26 05:30 WBC 12.6 H 11.7 H Doing well with puree and honey thick liquid, total assist, with aspiration precautions. Provide Magic cup/Ensure pudding b/n meals.
--- NOTE | 2017-11-12 11:47 | PN ---
Progress Note, Physician Chief Complaint: Mr Mcdonald is lethargic today - Current Medication List Current Medications: Active Medications Acetaminophen (Tylenol Suppository -) 650 mg OR Q6H PRN PRN Reason: FEVER Last Admin: 11/10/17 01:37 Dose: 650 mg Ascorbic Acid (Vitamin C -) 500 mg PO DAILY [facility] Atorvastatin Calcium (Lipitor -) 10 mg PO HS [facility] Last Admin: 11/11/17 22:03 Dose: 10 mg Cholecalciferol (Vitamin D3 -) 1,000 unit PO DAILY [facility] Docusate Sodium (Colace -) 100 mg PO BID [facility] Last Admin: 11/11/17 22:03 Dose: 100 mg Ferrous Sulfate (Feosol -) 325 mg PO DAILY [facility] Finasteride (Proscar -) 5 mg PO DAILY [facility] Dextrose/Sodium Chloride (D5-1/2ns -) 1,000 mls @ 42 mls/hr IV ASDIR [facility] Last Admin: 11/12/17 02:15 Dose: Not Given Levetiracetam (Keppra -) 500 mg PO BID [facility] Last Admin: 11/09/17 12:41 Dose: Not Given Lorazepam (Ativan Injection -) 1 mg IVPUSH BID PRN PRN Reason: ANXIETY Last Admin: 11/11/17 12:44 Dose: 1 mg Metoprolol Tartrate (Lopressor Injection -) 5 mg IVPUSH Q4H PRN PRN Reason: HYPERTENSION Last Admin: 11/10/17 00:47 Dose: 5 mg Metoprolol Tartrate (Lopressor -) 25 mg PO BID [facility] Last Admin: 11/11/17 22:03 Dose: 25 mg Nystatin (Nystatin Oral Suspension -) 500,000 units PO Q6HPO [facility] Last Admin: 11/12/17 06:16 Dose: 500,000 units Polyethylene Glycol (Miralax (For Daily Use) -) 17 gm PO DAILY [facility] Quetiapine Fumarate (Seroquel -) 50 mg PO HS [facility] Ranitidine HCl (Zantac -) 150 mg PO DAILY [facility] Tamsulosin HCl (Flomax -) 0.4 mg PO HS [facility] Last Admin: 11/11/17 22:03 Dose: 0.4 mg - Objective Vital Signs: Vital Signs Temperature 36.7 C 11/12/17 05:00 Pulse Rate 77 11/12/17 05:00 Respiratory Rate 20 11/12/17 05:00 Blood Pressure 138/76 11/12/17 05:00 O2 Sat by Pulse Oximetry (%) 99 11/12/17 06:00 Constitutional: Yes: No Distress, Calm, Obese Cardiovascular: Yes: Regular Rate and Rhythm. No: Gallop, Murmur, Rub Respiratory: Yes: Regular, CTA Bilaterally. No: Rales, Rhonchi, Wheezes Gastrointestinal: Yes: Normal Bowel Sounds, Soft. No: Distention, Tenderness Extremities: Yes: WNL Edema: No Labs: CBC, BMP 11/12/17 05:30 11/12/17 05:30 INR, PTT INR 1.06 (0.83-1.09) 11/08/17 22:30 Problem List - Problems (1) Seizures Code(s): R56.9 - UNSPECIFIED CONVULSIONS (2) Dementia Code(s): F03.90 - UNSPECIFIED DEMENTIA WITHOUT BEHAVIORAL DISTURBANCE Qualifiers: Dementia type: unspecified type Dementia behavioral disturbance: with behavioral disturbance Qualified Code(s): F03.91 - Unspecified dementia with behavioral disturbance (3) HLD (hyperlipidemia) Code(s): E78.5 - HYPERLIPIDEMIA, UNSPECIFIED (4) HTN (hypertension) Code(s): I10 - ESSENTIAL (PRIMARY) HYPERTENSION (5) Metabolic encephalopathy Code(s): G93.41 - METABOLIC ENCEPHALOPATHY Assessment/Plan (1) Seizures Assessment/Plan: -change to oral keppra today -patient tolerating diet Code(s): R56.9 - UNSPECIFIED CONVULSIONS (2) Dementia Assessment/Plan: -will decrease seroquel to 50mg qhs -monitor, remains lethargic Code(s): F03.90 - UNSPECIFIED DEMENTIA WITHOUT BEHAVIORAL DISTURBANCE Qualifiers: Dementia type: unspecified type Dementia behavioral disturbance: with behavioral disturbance Qualified Code(s): F03.91 - Unspecified dementia with behavioral disturbance (3) HLD (hyperlipidemia) Assessment/Plan: -continue lipitor Code(s): E78.5 - HYPERLIPIDEMIA, UNSPECIFIED (4) HTN (hypertension) Assessment/Plan: -continue metoprolol Code(s): I10 - ESSENTIAL (PRIMARY) HYPERTENSION (5) Metabolic encephalopathy Assessment/Plan: -will obtain MRI Code(s): G93.41 - METABOLIC ENCEPHALOPATHY (6) Thrush -nystatin swish and swallow
[2017-11-12] MEDS: POLYETHYLENE GLYCOL 3350 119 GM BTL PO SCH (12:10)
[2017-11-12] MEDS: levETIRAcetam 500 MG TABLET (FP) PO SCH ×2 (12:10→22:21)
[2017-11-12] MEDS: METOPROLOL TARTRATE 25 MG TABLET (FP) PO SCH ×2 (12:10→22:22)
[2017-11-12] MEDS: DOCUSATE SODIUM 100 MG CAPSULE (FP) PO SCH ×2 (12:10→22:20)
[2017-11-12] MEDS: FERROUS SO4 325 MG TABLET (FP) PO SCH (12:10)
[2017-11-12] MEDS: FINASTERIDE 5 MG TABLET (FP) PO SCH (12:11)
[2017-11-12] MEDS: CHOLECALCIFEROL (VITAMIN D3) 1,000 UNIT TABLET (FP) PO SCH (12:11)
[2017-11-12] MEDS: RANITIDINE HCL 150 MG TABLET (FP) PO SCH (12:11)
[2017-11-12] MEDS: ASCORBIC ACID 500 MG TABLET (FP) PO SCH (12:11)
[2017-11-12] MEDS: ALBUTEROL SO4 0.083% IH SOL 2.5 MG/3 ML VIAL.NEB. NEB PRN (20:45)
[2017-11-12] MEDS ORDERED: QUEtiapine FUMARATE 25 MG TABLET (FP) ONE (21:06)
[2017-11-12] MEDS: ATORVASTATIN CA 10 MG TABLET (FP) PO SCH (22:21)
[2017-11-12] MEDS: TAMSULOSIN HCL 0.4 MG CAP PO SCH (22:21)
[2017-11-12] MEDS: QUEtiapine FUMARATE 50 MG TABLET PO SCH (22:25)
[2017-11-13] MEDS: DEXTROSE 5%-0.45% SALINE 1,000 ML IV SCH (02:00)
[2017-11-13] MEDS: NYSTATIN 500,000 UNITS/5 ML SUSPENSION PO SCH ×4 (06:28→18:19)
[2017-11-13 08:04] LABS: BASO % 0.6 % (0-2.0); EOS % 5.6 % (0-4.5); HEMATOCRIT 35.6 % (35.4-49); HEMOGLOBIN 11.9 GM/dL (11.7-16.9); LYMPH % 18.1 % (8-40); MCH 29.4 pg (25.7-33.7); MCHC 33.4 g/dl (32.0-35.9); MEAN CELL VOLUME 88.1 fl (80-96); MEAN PLT VOLUME 9.7 fl (7.5-11.1); MONO % 12.5 % (3.8-10.2); NEUT % 63.2 % (42.8-82.8); PLATELET COUNT 146 K/MM3 (134-434); RBC 4.05 M/mm3 (4.00-5.60); RDW 13.4 % (11.9-15.9); WHITE BLOOD COUNT 8.2 K/mm3 (4.0-10.0)
[2017-11-13 08:31] LABS: ANION GAP 7 MMOL/L (8-16); BLOOD UREA NITROGEN 21 mg/dL (7-18); CALCIUM 8.1 mg/dL (8.5-10.1); CHLORIDE 103 mmol/L (98-107); CO2 27 mmol/L (21-32); CREATININE 0.6 mg/dL (0.55-1.3); GLUCOSE,RANDOM 80 mg/dL (74-106); PHOSPHOROUS 3.3 mg/dL (2.5-4.9); POTASSIUM 3.6 mmol/L (3.5-5.1); SODIUM 138 mmol/L (136-145)
[2017-11-13] MEDS: FERROUS SO4 325 MG TABLET (FP) PO SCH (10:06)
[2017-11-13] MEDS: CHOLECALCIFEROL (VITAMIN D3) 1,000 UNIT TABLET (FP) PO SCH (10:07)
[2017-11-13] MEDS: RANITIDINE HCL 150 MG TABLET (FP) PO SCH (10:07)
[2017-11-13] MEDS: METOPROLOL TARTRATE 25 MG TABLET (FP) PO SCH ×2 (10:07→22:12)
[2017-11-13] MEDS: ASCORBIC ACID 500 MG TABLET (FP) PO SCH (10:07)
[2017-11-13] MEDS: DOCUSATE SODIUM 100 MG CAPSULE (FP) PO SCH ×2 (10:07→22:11)
[2017-11-13] MEDS: levETIRAcetam 500 MG TABLET (FP) PO SCH ×2 (10:07→22:12)
[2017-11-13] MEDS: FINASTERIDE 5 MG TABLET (FP) PO SCH (10:07)
[2017-11-13] MEDS: POLYETHYLENE GLYCOL 3350 119 GM BTL PO SCH (10:08)
[2017-11-13] MEDS: ACETAMINOPHEN 650 MG SUPP.RECT PR PRN (10:22)
[2017-11-13] MEDS ORDERED: ACETAMINOPHEN 325 MG TABLET (FP) PO PRN (11:13)
--- NOTE | 2017-11-13 11:34 | PN ---
Progress Note, Physician History of Present Illness: Patient awake this morning, but remains confused (baseline dementia) and keeps rubbing lateral hips, saying they hurt. On exam has some pain to palpation, but passive ROM of leg not eliciting severe pain. - Current Medication List Current Medications: Active Medications Acetaminophen (Tylenol Suppository -) 650 mg [place] Q6H PRN PRN Reason: FEVER Last Admin: 11/13/17 10:22 Dose: 650 mg Acetaminophen (Tylenol -) 650 mg PO Q4H PRN PRN Reason: PAIN Albuterol Sulfate (Ventolin 0.083% Nebulizer Soln -) 1 amp NEB Q4H PRN PRN Reason: SHORT OF BREATH/WHEEZING Last Admin: 11/12/17 20:45 Dose: 1 amp Ascorbic Acid (Vitamin C -) 500 mg PO DAILY [facility] Last Admin: 11/13/17 10:07 Dose: 500 mg Atorvastatin Calcium (Lipitor -) 10 mg PO HS [facility] Last Admin: 11/12/17 22:21 Dose: 10 mg Cholecalciferol (Vitamin D3 -) 1,000 unit PO DAILY [facility] Last Admin: 11/13/17 10:07 Dose: 1,000 unit Docusate Sodium (Colace -) 100 mg PO BID [facility] Last Admin: 11/13/17 10:07 Dose: 100 mg Ferrous Sulfate (Feosol -) 325 mg PO DAILY [facility] Last Admin: 11/13/17 10:06 Dose: 325 mg Finasteride (Proscar -) 5 mg PO DAILY [facility] Last Admin: 11/13/17 10:07 Dose: 5 mg Dextrose/Sodium Chloride (D5-1/2ns -) 1,000 mls @ 42 mls/hr IV ASDIR [facility] Last Admin: 11/13/17 02:00 Dose: Not Given Levetiracetam (Keppra -) 500 mg PO BID [facility] Last Admin: 11/13/17 10:07 Dose: 500 mg Metoprolol Tartrate (Lopressor Injection -) 5 mg IVPUSH Q4H PRN PRN Reason: HYPERTENSION Last Admin: 11/10/17 00:47 Dose: 5 mg Metoprolol Tartrate (Lopressor -) 25 mg PO BID [facility] Last Admin: 11/13/17 10:07 Dose: 25 mg Nystatin (Nystatin Oral Suspension -) 500,000 units PO Q6HPO [facility] Last Admin: 11/13/17 06:28 Dose: 500,000 units Polyethylene Glycol (Miralax (For Daily Use) -) 17 gm PO DAILY [facility] Last Admin: 11/13/17 10:08 Dose: 17 gm Quetiapine Fumarate (Seroquel -) 50 mg PO [facility] Last Admin: 11/12/17 22:25 Dose: Not Given Ranitidine HCl (Zantac -) 150 mg PO DAILY [facility] Last Admin: 11/13/17 10:07 Dose: 150 mg Tamsulosin HCl (Flomax -) 0.4 mg PO [facility] Last Admin: 11/12/17 22:21 Dose: 0.4 mg - Objective Vital Signs: Vital Signs Temperature 98.0 F 11/13/17 10:00 Pulse Rate 80 11/13/17 10:00 Respiratory Rate 22 H 11/13/17 10:00 Blood Pressure 158/76 11/13/17 10:00 O2 Sat by Pulse Oximetry (%) 95 11/12/17 22:00 Constitutional: Yes: Calm Neck: Yes: Supple, Trachea Midline Cardiovascular: Yes: Regular Rate and Rhythm, S1, S2. No: Murmur Respiratory: Yes: Regular, CTA Bilaterally. No: Rales, Rhonchi, Wheezes Gastrointestinal: Yes: Normal Bowel Sounds, Soft Musculoskeletal: Yes: Other (pain to bilateral hip palpation) Edema: No Labs: CBC, BMP 11/13/17 06:30 11/13/17 06:30 INR, PTT INR 1.06 (0.83-1.09) 11/08/17 22:30 Assessment/Plan Current Active Problems Altered mental status (Acute)/ Metabolic encephalopathy Seizure (Acute) Dementia HPL HTN -given hip pain will check xrays of hips/ pelvis (injured when he had seizure recently?) -cont Keppra, -follow on decreased seroquel for increased lethargy (appears awake today)
[2017-11-13] MEDS ORDERED: KETOROLAC TROMETHAMINE 30 MG/1 ML VIAL IM ONE (13:03)
[2017-11-13] MEDS: LIDOCAINE 5% TOPICAL PATCH TP SCH (13:43)
[2017-11-13] MEDS: ALBUTEROL SO4 0.083% IH SOL 2.5 MG/3 ML VIAL.NEB. NEB PRN (20:46)
[2017-11-13] MEDS ORDERED: QUEtiapine FUMARATE 25 MG TABLET (FP) ONE (21:09)
[2017-11-13] MEDS: QUEtiapine FUMARATE 50 MG TABLET PO SCH (22:12)
[2017-11-13] MEDS: TAMSULOSIN HCL 0.4 MG CAP PO SCH (22:13)
[2017-11-13] MEDS: ATORVASTATIN CA 10 MG TABLET (FP) PO SCH (22:13)
[2017-11-13] MEDS: LIDOCAINE PATCH REMOVAL MC SCH (22:14)
[2017-11-14] MEDS: KETOROLAC TROMETHAMINE 30 MG/1 ML VIAL IM PRN (01:24)
[2017-11-14] MEDS: DEXTROSE 5%-0.45% SALINE 1,000 ML IV SCH ×2 (02:13→17:28)
[2017-11-14] MEDS: NYSTATIN 500,000 UNITS/5 ML SUSPENSION PO SCH ×4 (05:38→17:28)
[2017-11-14] MEDS: LIDOCAINE 5% TOPICAL PATCH TP SCH (09:37)
[2017-11-14] MEDS: ASCORBIC ACID 500 MG TABLET (FP) PO SCH (09:37)
[2017-11-14] MEDS: METOPROLOL TARTRATE 25 MG TABLET (FP) PO SCH ×2 (09:37→22:24)
[2017-11-14] MEDS: DOCUSATE SODIUM 100 MG CAPSULE (FP) PO SCH ×2 (09:37→22:23)
[2017-11-14] MEDS: CHOLECALCIFEROL (VITAMIN D3) 1,000 UNIT TABLET (FP) PO SCH (09:37)
[2017-11-14] MEDS: RANITIDINE HCL 150 MG TABLET (FP) PO SCH (09:37)
[2017-11-14] MEDS: levETIRAcetam 500 MG TABLET (FP) PO SCH ×2 (09:37→22:23)
[2017-11-14] MEDS: FERROUS SO4 325 MG TABLET (FP) PO SCH (09:37)
[2017-11-14] MEDS: FINASTERIDE 5 MG TABLET (FP) PO SCH (09:37)
[2017-11-14] MEDS: POLYETHYLENE GLYCOL 3350 119 GM BTL PO SCH (09:38)
--- NOTE | 2017-11-14 11:53 | PN ---
Progress Note, Physician History of Present Illness: Had diarrhea last night and overnight. Otherwise remains awake, but confused. Has lidocaine patches on hips now and getting prn toradol onjection for hip pain. No further seizures noted. - Current Medication List Current Medications: Active Medications Acetaminophen (Tylenol -) 650 mg PO Q4H PRN PRN Reason: PAIN Albuterol Sulfate (Ventolin 0.083% Nebulizer Soln -) 1 amp NEB Q4H PRN PRN Reason: SHORT OF BREATH/WHEEZING Last Admin: 11/13/17 20:46 Dose: 1 amp Ascorbic Acid (Vitamin C -) 500 mg PO DAILY [facility] Last Admin: 11/14/17 09:37 Dose: 500 mg Atorvastatin Calcium (Lipitor -) 10 mg PO HS [facility] Last Admin: 11/13/17 22:13 Dose: 10 mg Cholecalciferol (Vitamin D3 -) 1,000 unit PO DAILY [facility] Last Admin: 11/14/17 09:37 Dose: 1,000 unit Docusate Sodium (Colace -) 100 mg PO BID [facility] Last Admin: 11/14/17 09:37 Dose: Not Given Ferrous Sulfate (Feosol -) 325 mg PO DAILY [facility] Last Admin: 11/14/17 09:37 Dose: 325 mg Finasteride (Proscar -) 5 mg PO DAILY [facility] Last Admin: 11/14/17 09:37 Dose: 5 mg Dextrose/Sodium Chloride (D5-1/2ns -) 1,000 mls @ 42 mls/hr IV ASDIR [facility] Last Admin: 11/14/17 02:13 Dose: 42 mls/hr Ketorolac Tromethamine (Toradol Injection -) 30 mg IM Q8H PRN PRN Reason: PAIN LEVEL 1-5 Stop: 11/18/17 18:29 Last Admin: 11/14/17 01:24 Dose: 30 mg Levetiracetam (Keppra -) 500 mg PO BID [facility] Last Admin: 11/14/17 09:37 Dose: 500 mg Lidocaine (Lidoderm Patch -) 2 patch TP DAILY [facility] Last Admin: 11/14/17 09:37 Dose: 2 patch Metoprolol Tartrate (Lopressor Injection -) 5 mg IVPUSH Q4H PRN PRN Reason: HYPERTENSION Last Admin: 11/10/17 00:47 Dose: 5 mg Metoprolol Tartrate (Lopressor -) 25 mg PO BID [facility] Last Admin: 11/14/17 09:37 Dose: 25 mg Miscellaneous (Lidoderm Patch Removal) 1 each MC DAILY@2200 [facility] Last Admin: 11/13/17 22:14 Dose: 1 each Nystatin (Nystatin Oral Suspension -) 500,000 units PO Q6HPO [facility] Last Admin: 11/14/17 05:38 Dose: 500,000 units Polyethylene Glycol (Miralax (For Daily Use) -) 17 gm PO DAILY [facility] Last Admin: 11/14/17 09:38 Dose: Not Given Quetiapine Fumarate (Seroquel -) 50 mg PO HS [facility] Last Admin: 11/13/17 22:12 Dose: 50 mg Ranitidine HCl (Zantac -) 150 mg PO DAILY [facility] Last Admin: 11/14/17 09:37 Dose: 150 mg Tamsulosin HCl (Flomax -) 0.4 mg PO [facility] Last Admin: 11/13/17 22:13 Dose: 0.4 mg - Objective Vital Signs: Vital Signs Temperature 98.1 F 11/14/17 05:00 Pulse Rate 76 11/14/17 05:00 Respiratory Rate 20 11/14/17 05:00 Blood Pressure 101/48 L 11/14/17 05:00 O2 Sat by Pulse Oximetry (%) 96 11/13/17 22:00 Constitutional: Yes: No Distress, Calm Neck: Yes: Supple, Trachea Midline Cardiovascular: Yes: Regular Rate and Rhythm, S1, S2. No: Murmur Respiratory: Yes: Regular, CTA Bilaterally. No: Rales, Rhonchi, Wheezes Gastrointestinal: Yes: Normal Bowel Sounds, Soft. No: Distention, Tenderness Edema: No Neurological: Yes: Alert, Confusion Labs: CBC, BMP 11/13/17 06:30 11/13/17 06:30 INR, PTT INR 1.06 (0.83-1.09) 11/08/17 22:30 Assessment/Plan Current Active Problems Altered mental status (Acute)/ Metabolic encephalopathy Seizure (Acute) Dementia HPL HTN -cont increased keppra -NSAID for pain currently -anum for cdiff pending, but was on laxative medications prior to diarrhea
[2017-11-14] MEDS ORDERED: QUEtiapine FUMARATE 25 MG TABLET (FP) ONE (21:03)
[2017-11-14] MEDS: TAMSULOSIN HCL 0.4 MG CAP PO SCH (22:23)
[2017-11-14] MEDS: ATORVASTATIN CA 10 MG TABLET (FP) PO SCH (22:24)
[2017-11-14] MEDS: LIDOCAINE PATCH REMOVAL MC SCH (22:24)
[2017-11-14] MEDS: QUEtiapine FUMARATE 50 MG TABLET PO SCH (22:25)
[2017-11-15] MEDS: NYSTATIN 500,000 UNITS/5 ML SUSPENSION PO SCH ×4 (00:36→18:49)
[2017-11-15] MEDS: DEXTROSE 5%-0.45% SALINE 1,000 ML IV SCH ×2 (02:28→17:38)
[2017-11-15] MEDS: KETOROLAC TROMETHAMINE 30 MG/1 ML VIAL IM PRN (02:29)
[2017-11-15 07:25] LABS: BASO % 0.5 % (0-2.0); EOS % 7.3 % (0-4.5); HEMATOCRIT 38.6 % (35.4-49); HEMOGLOBIN 12.6 GM/dL (11.7-16.9); LYMPH % 20.4 % (8-40); MCH 28.8 pg (25.7-33.7); MCHC 32.6 g/dl (32.0-35.9); MEAN CELL VOLUME 88.2 fl (80-96); MEAN PLT VOLUME 8.9 fl (7.5-11.1); NEUT % 61.8 % (42.8-82.8); PLATELET COUNT 188 K/MM3 (134-434); RBC 4.37 M/mm3 (4.00-5.60); RDW 13.7 % (11.9-15.9); WHITE BLOOD COUNT 7.7 K/mm3 (4.0-10.0)
[2017-11-15 08:06] LABS: ALBUMIN 2.7 g/dl (3.4-5.0); ALK PHOS 51 U/L (45-117); ANION GAP 6 MMOL/L (8-16); BILIRUBIN,TOTAL 1.3 mg/dL (0.2-1); BLOOD UREA NITROGEN 13 mg/dL (7-18); CALCIUM 8.3 mg/dL (8.5-10.1); CHLORIDE 103 mmol/L (98-107); CO2 28 mmol/L (21-32); CREATININE 0.6 mg/dL (0.55-1.3); GLUCOSE,RANDOM 93 mg/dL (74-106); POTASSIUM 3.8 mmol/L (3.5-5.1); SGOT/AST 69 U/L (15-37); SGPT/ALT 48 U/L (13-61); SODIUM 138 mmol/L (136-145); TOT PROT 5.8 g/dl (6.4-8.2)
[2017-11-15] MEDS: LIDOCAINE 5% TOPICAL PATCH TP SCH (09:18)
[2017-11-15] MEDS: FINASTERIDE 5 MG TABLET (FP) PO SCH (09:18)
[2017-11-15] MEDS: levETIRAcetam 500 MG TABLET (FP) PO SCH ×2 (09:18→22:25)
[2017-11-15] MEDS: RANITIDINE HCL 150 MG TABLET (FP) PO SCH (09:18)
[2017-11-15] MEDS: FERROUS SO4 325 MG TABLET (FP) PO SCH (09:18)
[2017-11-15] MEDS: METOPROLOL TARTRATE 25 MG TABLET (FP) PO SCH ×2 (09:19→22:27)
[2017-11-15] MEDS: DOCUSATE SODIUM 100 MG CAPSULE (FP) PO SCH ×2 (09:19→22:26)
[2017-11-15] MEDS: POLYETHYLENE GLYCOL 3350 119 GM BTL PO SCH ×2 (09:19→09:22)
[2017-11-15] MEDS: ASCORBIC ACID 500 MG TABLET (FP) PO SCH (09:19)
[2017-11-15] MEDS: CHOLECALCIFEROL (VITAMIN D3) 1,000 UNIT TABLET (FP) PO SCH (09:19)
[2017-11-15] MEDS: ALBUTEROL SO4 0.083% IH SOL 2.5 MG/3 ML VIAL.NEB. NEB PRN (10:00)
--- NOTE | 2017-11-15 10:47 | PN ---
Progress Note, Physician Chief Complaint: Mr Mcdonald is sleeping but wakes up with gentle touch. Says feels fine today but cannot obtain further subjective - Current Medication List Current Medications: Active Medications Acetaminophen (Tylenol -) 650 mg PO Q4H PRN PRN Reason: PAIN Albuterol Sulfate (Ventolin 0.083% Nebulizer Soln -) 1 amp NEB Q4H PRN PRN Reason: SHORT OF BREATH/WHEEZING Last Admin: 11/15/17 10:00 Dose: 1 amp Albuterol/Ipratropium (Duoneb -) 1 amp NEB RTID [facility] Ascorbic Acid (Vitamin C -) 500 mg PO DAILY [facility] Last Admin: 11/15/17 09:19 Dose: 500 mg Atorvastatin Calcium (Lipitor -) 10 mg PO HS [facility] Last Admin: 11/14/17 22:24 Dose: 10 mg Cholecalciferol (Vitamin D3 -) 1,000 unit PO DAILY [facility] Last Admin: 11/15/17 09:19 Dose: 1,000 unit Docusate Sodium (Colace -) 100 mg PO BID [facility] Last Admin: 11/15/17 09:19 Dose: 100 mg Ferrous Sulfate (Feosol -) 325 mg PO DAILY [facility] Last Admin: 11/15/17 09:18 Dose: 325 mg Finasteride (Proscar -) 5 mg PO DAILY [facility] Last Admin: 11/15/17 09:18 Dose: 5 mg Dextrose/Sodium Chloride (D5-1/2ns -) 1,000 mls @ 42 mls/hr IV ASDIR [facility] Last Admin: 11/15/17 02:28 Dose: 42 mls/hr Ketorolac Tromethamine (Toradol Injection -) 30 mg IM Q8H PRN PRN Reason: PAIN LEVEL 1-5 Stop: 11/18/17 18:29 Last Admin: 11/15/17 02:29 Dose: 30 mg Levetiracetam (Keppra -) 500 mg PO BID [facility] Last Admin: 11/15/17 09:18 Dose: 500 mg Lidocaine (Lidoderm Patch -) 2 patch TP DAILY [facility] Last Admin: 11/15/17 09:18 Dose: 2 patch Lorazepam (Ativan Injection -) 1 mg IVPUSH ONCE ONE Stop: 11/15/17 10:45 Metoprolol Tartrate (Lopressor Injection -) 5 mg IVPUSH Q4H PRN PRN Reason: HYPERTENSION Last Admin: 11/10/17 00:47 Dose: 5 mg Metoprolol Tartrate (Lopressor -) 25 mg PO BID [facility] Last Admin: 11/15/17 09:19 Dose: 25 mg Miscellaneous (Lidoderm Patch Removal) 1 each MC DAILY@2200 [facility] Last Admin: 11/14/17 22:24 Dose: 1 each Nystatin (Nystatin Oral Suspension -) 500,000 units PO Q6HPO [facility] Last Admin: 11/15/17 05:07 Dose: 500,000 units Polyethylene Glycol (Miralax (For Daily Use) -) 17 gm PO DAILY [facility] Last Admin: 11/15/17 09:22 Dose: Not Given Prednisone (Deltasone -) 40 mg PO DAILY [facility] Stop: 11/17/17 10:01 Quetiapine Fumarate (Seroquel -) 50 mg PO HS [facility] Last Admin: 11/14/17 22:25 Dose: 50 mg Ranitidine HCl (Zantac -) 150 mg PO DAILY [facility] Last Admin: 11/15/17 09:18 Dose: 150 mg Tamsulosin HCl (Flomax -) 0.4 mg PO HS [facility] Last Admin: 11/14/17 22:23 Dose: 0.4 mg - Objective Vital Signs: Vital Signs Temperature 36.9 C 11/15/17 09:44 Pulse Rate 82 11/15/17 09:44 Respiratory Rate 20 11/15/17 09:44 Blood Pressure 151/98 11/15/17 09:44 O2 Sat by Pulse Oximetry (%) 97 11/14/17 22:00 Constitutional: Yes: No Distress, Calm, Obese Cardiovascular: Yes: Regular Rate and Rhythm. No: Gallop, Murmur, Rub Respiratory: Yes: Regular, Wheezes. No: CTA Bilaterally, Rales, Rhonchi Gastrointestinal: Yes: Normal Bowel Sounds, Soft. No: Distention, Tenderness Extremities: Yes: WNL Edema: No Labs: CBC, BMP 11/15/17 06:45 11/15/17 06:45 INR, PTT INR 1.06 (0.83-1.09) 11/08/17 22:30 Problem List - Problems (1) Seizures Code(s): R56.9 - UNSPECIFIED CONVULSIONS (2) Dementia Code(s): F03.90 - UNSPECIFIED DEMENTIA WITHOUT BEHAVIORAL DISTURBANCE Qualifiers: Dementia type: unspecified type Dementia behavioral disturbance: with behavioral disturbance Qualified Code(s): F03.91 - Unspecified dementia with behavioral disturbance (3) HLD (hyperlipidemia) Code(s): E78.5 - HYPERLIPIDEMIA, UNSPECIFIED (4) HTN (hypertension) Code(s): I10 - ESSENTIAL (PRIMARY) HYPERTENSION (5) Metabolic encephalopathy Code(s): G93.41 - METABOLIC ENCEPHALOPATHY (6) Wheezing Code(s): R06.2 - WHEEZING Assessment/Plan (1) Seizures Assessment/Plan: -continue oral keppra -has not recurred Code(s): R56.9 - UNSPECIFIED CONVULSIONS (2) Dementia Assessment/Plan: -patient more awake today -continue seroquel at night -obtain MRI, still not at baseline Code(s): F03.90 - UNSPECIFIED DEMENTIA WITHOUT BEHAVIORAL DISTURBANCE Qualifiers: Dementia type: unspecified type Dementia behavioral disturbance: with behavioral disturbance Qualified Code(s): F03.91 - Unspecified dementia with behavioral disturbance (3) HLD (hyperlipidemia) Assessment/Plan: -continue lipitor Code(s): E78.5 - HYPERLIPIDEMIA, UNSPECIFIED (4) HTN (hypertension) Assessment/Plan: -continue metoprolol Code(s): I10 - ESSENTIAL (PRIMARY) HYPERTENSION (5) Metabolic encephalopathy Assessment/Plan: -will obtain MRI as above Code(s): G93.41 - METABOLIC ENCEPHALOPATHY (6) Thrush -nystatin swish and swallow (7) Wheezing -present today -scheduled duonebs -prednisone 40mg daily x3 days
[2017-11-15] MEDS: predniSONE 20 MG TABLET (UD) PO SCH (11:26)
[2017-11-15] MEDS: ALBUTEROL SO4 2.5/IPRATROPIUM 0.5 INH SOL 3 ML VIAL.NEB. NEB SCH ×2 (14:18→20:31)
[2017-11-15] MEDS ORDERED: LORazepam 2 MG/ML SDV VIAL IVPUSH ONE (18:30)
[2017-11-15] MEDS ORDERED: PT OWN MED DRAWER 7, Y5N ONE (19:41)
[2017-11-15] MEDS ORDERED: PNEUMOC 13-VAL CONJ-DIP CRM/PF 0.5 ML DISP.SYRIN IM ONE (20:30)
[2017-11-15] MEDS ORDERED: FLU VACCINE QUAD 60 MCG/0.5 ML (MDV 18-19) IM ONE (20:30)
[2017-11-15] MEDS: QUEtiapine FUMARATE 50 MG TABLET PO SCH (22:25)
[2017-11-15] MEDS: ATORVASTATIN CA 10 MG TABLET (FP) PO SCH (22:26)
[2017-11-15] MEDS: TAMSULOSIN HCL 0.4 MG CAP PO SCH (22:27)
[2017-11-15] MEDS ORDERED: QUEtiapine FUMARATE 25 MG TABLET (FP) ONE (23:13)
[2017-11-15] MEDS: LIDOCAINE PATCH REMOVAL MC SCH (23:28)
[2017-11-16] MEDS: NYSTATIN 500,000 UNITS/5 ML SUSPENSION PO SCH ×5 (05:44→23:55)
[2017-11-16] MEDS: DEXTROSE 5%-0.45% SALINE 1,000 ML IV SCH (06:09)
[2017-11-16 07:17] LABS: BASO % 0.8 % (0-2.0); EOS % 2.8 % (0-4.5); HEMATOCRIT 38.4 % (35.4-49); HEMOGLOBIN 12.7 GM/dL (11.7-16.9); MCHC 32.9 g/dl (32.0-35.9); MEAN CELL VOLUME 87.9 fl (80-96); MEAN PLT VOLUME 8.9 fl (7.5-11.1); MONO % 9.6 % (3.8-10.2); NEUT % 68.8 % (42.8-82.8); PLATELET COUNT 215 K/MM3 (134-434); RBC 4.37 M/mm3 (4.00-5.60); WHITE BLOOD COUNT 10.3 K/mm3 (4.0-10.0)
[2017-11-16] MEDS: ALBUTEROL SO4 2.5/IPRATROPIUM 0.5 INH SOL 3 ML VIAL.NEB. NEB SCH ×3 (07:30→21:01)
[2017-11-16 07:45] LABS: ANION GAP 7 MMOL/L (8-16); BLOOD UREA NITROGEN 12 mg/dL (7-18); CALCIUM 8.6 mg/dL (8.5-10.1); CHLORIDE 104 mmol/L (98-107); CO2 27 mmol/L (21-32); CREATININE 0.6 mg/dL (0.55-1.3); GLUCOSE,RANDOM 91 mg/dL (74-106); PHOSPHOROUS 2.8 mg/dL (2.5-4.9); POTASSIUM 3.6 mmol/L (3.5-5.1); SODIUM 138 mmol/L (136-145)
[2017-11-16] MEDS: predniSONE 20 MG TABLET (UD) PO SCH (10:45)
[2017-11-16] MEDS: DOCUSATE SODIUM 100 MG CAPSULE (FP) PO SCH ×2 (10:45→21:46)
[2017-11-16] MEDS: LIDOCAINE 5% TOPICAL PATCH TP SCH (10:45)
[2017-11-16] MEDS: FINASTERIDE 5 MG TABLET (FP) PO SCH (10:45)
[2017-11-16] MEDS: RANITIDINE HCL 150 MG TABLET (FP) PO SCH (10:45)
[2017-11-16] MEDS: ASCORBIC ACID 500 MG TABLET (FP) PO SCH (10:45)
[2017-11-16] MEDS: levETIRAcetam 500 MG TABLET (FP) PO SCH ×2 (10:45→21:46)
[2017-11-16] MEDS: FERROUS SO4 325 MG TABLET (FP) PO SCH (10:45)
[2017-11-16] MEDS: CHOLECALCIFEROL (VITAMIN D3) 1,000 UNIT TABLET (FP) PO SCH (10:45)
[2017-11-16] MEDS: METOPROLOL TARTRATE 25 MG TABLET (FP) PO SCH ×2 (10:46→21:45)
[2017-11-16] MEDS: POLYETHYLENE GLYCOL 3350 119 GM BTL PO SCH (10:46)
--- NOTE | 2017-11-16 14:03 | PN ---
Progress Note, Physician Chief Complaint: Mr Mcdonald appears more awake today. Says he feels fine. Denies cp, sob, n/v. - Current Medication List Current Medications: Active Medications Acetaminophen (Tylenol -) 650 mg PO Q4H PRN PRN Reason: PAIN Albuterol Sulfate (Ventolin 0.083% Nebulizer Soln -) 1 amp NEB Q4H PRN PRN Reason: SHORT OF BREATH/WHEEZING Last Admin: 11/15/17 10:00 Dose: 1 amp Albuterol/Ipratropium (Duoneb -) 1 amp NEB RTID [facility] Last Admin: 11/16/17 07:30 Dose: 1 amp Ascorbic Acid (Vitamin C -) 500 mg PO DAILY [facility] Last Admin: 11/16/17 10:45 Dose: 500 mg Atorvastatin Calcium (Lipitor -) 10 mg PO HS [facility] Last Admin: 11/15/17 22:26 Dose: 10 mg Cholecalciferol (Vitamin D3 -) 1,000 unit PO DAILY [facility] Last Admin: 11/16/17 10:45 Dose: 1,000 unit Docusate Sodium (Colace -) 100 mg PO BID [facility] Last Admin: 11/16/17 10:45 Dose: 100 mg Ferrous Sulfate (Feosol -) 325 mg PO DAILY [facility] Last Admin: 11/16/17 10:45 Dose: 325 mg Finasteride (Proscar -) 5 mg PO DAILY [facility] Last Admin: 11/16/17 10:45 Dose: 5 mg Dextrose/Sodium Chloride (D5-1/2ns -) 1,000 mls @ 42 mls/hr IV ASDIR [facility] Last Admin: 11/16/17 06:09 Dose: 42 mls/hr Ketorolac Tromethamine (Toradol Injection -) 30 mg IM Q8H PRN PRN Reason: PAIN LEVEL 1-5 Stop: 11/18/17 18:29 Last Admin: 11/15/17 02:29 Dose: 30 mg Levetiracetam (Keppra -) 500 mg PO BID [facility] Last Admin: 11/16/17 10:45 Dose: 500 mg Lidocaine (Lidoderm Patch -) 2 patch TP DAILY [facility] Last Admin: 11/16/17 10:45 Dose: 2 patch Metoprolol Tartrate (Lopressor Injection -) 5 mg IVPUSH Q4H PRN PRN Reason: HYPERTENSION Last Admin: 11/10/17 00:47 Dose: 5 mg Metoprolol Tartrate (Lopressor -) 25 mg PO BID [facility] Last Admin: 11/16/17 10:46 Dose: 25 mg Miscellaneous (Lidoderm Patch Removal) 1 each MC DAILY@2200 [facility] Last Admin: 11/15/17 23:28 Dose: 1 each Nystatin (Nystatin Oral Suspension -) 500,000 units PO Q6HPO [facility] Last Admin: 11/16/17 05:44 Dose: 500,000 units Polyethylene Glycol (Miralax (For Daily Use) -) 17 gm PO DAILY [facility] Last Admin: 11/16/17 10:46 Dose: Not Given Prednisone (Deltasone -) 40 mg PO DAILY [facility] Stop: 11/17/17 10:01 Last Admin: 11/16/17 10:45 Dose: 40 mg Quetiapine Fumarate (Seroquel -) 50 mg PO HS [facility] Last Admin: 11/15/17 22:25 Dose: 50 mg Ranitidine HCl (Zantac -) 150 mg PO DAILY [facility] Last Admin: 11/16/17 10:45 Dose: 150 mg Tamsulosin HCl (Flomax -) 0.4 mg PO HS [facility] Last Admin: 11/15/17 22:27 Dose: 0.4 mg - Objective Vital Signs: Vital Signs Temperature 37.2 C 11/16/17 13:38 Pulse Rate 61 11/16/17 13:38 Respiratory Rate 20 11/16/17 13:38 Blood Pressure 131/68 11/16/17 13:38 O2 Sat by Pulse Oximetry (%) 98 11/16/17 10:00 Constitutional: Yes: No Distress, Calm, Obese Cardiovascular: Yes: Regular Rate and Rhythm. No: Gallop, Murmur, Rub Respiratory: Yes: Regular, CTA Bilaterally. No: Rales, Rhonchi, Wheezes Gastrointestinal: Yes: Normal Bowel Sounds, Soft. No: Distention, Tenderness Extremities: Yes: WNL Edema: No Labs: CBC, BMP 11/16/17 06:45 11/16/17 06:00 INR, PTT INR 1.06 (0.83-1.09) 11/08/17 22:30 Problem List - Problems (1) Seizures Code(s): R56.9 - UNSPECIFIED CONVULSIONS (2) Dementia Code(s): F03.90 - UNSPECIFIED DEMENTIA WITHOUT BEHAVIORAL DISTURBANCE Qualifiers: Dementia type: unspecified type Dementia behavioral disturbance: with behavioral disturbance Qualified Code(s): F03.91 - Unspecified dementia with behavioral disturbance (3) HLD (hyperlipidemia) Code(s): E78.5 - HYPERLIPIDEMIA, UNSPECIFIED (4) HTN (hypertension) Code(s): I10 - ESSENTIAL (PRIMARY) HYPERTENSION (5) Metabolic encephalopathy Code(s): G93.41 - METABOLIC ENCEPHALOPATHY (6) Wheezing Code(s): R06.2 - WHEEZING Assessment/Plan (1) Seizures Assessment/Plan: -continue oral keppra -has not recurred Code(s): R56.9 - UNSPECIFIED CONVULSIONS (2) Dementia Assessment/Plan: -patient more awake today -continue seroquel at night -MRI read reviewed Code(s): F03.90 - UNSPECIFIED DEMENTIA WITHOUT BEHAVIORAL DISTURBANCE Qualifiers: Dementia type: unspecified type Dementia behavioral disturbance: with behavioral disturbance Qualified Code(s): F03.91 - Unspecified dementia with behavioral disturbance (3) HLD (hyperlipidemia) Assessment/Plan: -continue lipitor Code(s): E78.5 - HYPERLIPIDEMIA, UNSPECIFIED (4) HTN (hypertension) Assessment/Plan: -continue metoprolol Code(s): I10 - ESSENTIAL (PRIMARY) HYPERTENSION (5) Metabolic encephalopathy Assessment/Plan: -improved -baseline unclear but patient is stable Code(s): G93.41 - METABOLIC ENCEPHALOPATHY (6) Thrush -nystatin swish and swallow (7) Wheezing -resolved -scheduled duonebs -prednisone 40mg daily x3 days Dispo -plan for discharge tomorrow
--- NOTE | 2017-11-16 14:57 | PN ---
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, POLITICAL DIRECTOR - Note Progress Note: Selected Entries 11/11/17 11/11/17 11/11/17 01:48 05:00 09:00 Supper Temperature 98.6 F 97.9 F 99.6 F 11/11/17 11/11/17 11/11/17 13:41 17:00 21:00 Supper Temperature 99.3 F 98.5 F 98.3 F 11/11/17 11/12/17 11/12/17 22:00 01:26 05:00 Supper 50% Temperature 98.3 F 98.4 F 98.1 F Laboratory Tests 11/11/17 11/12/17 06:26 05:30 WBC 12.6 H 11.7 H Selected Entries 11/15/17 11/15/17 11/15/17 01:00 05:00 09:44 Breakfast Lunch Temperature 98.1 F 98.3 F 98.5 F 11/15/17 11/15/17 11/15/17 10:58 14:52 18:00 Breakfast 50% Lunch 50% Temperature 98.5 F 99 F 11/15/17 11/16/17 11/16/17 22:00 02:10 06:44 Breakfast Lunch Temperature 97.4 F L 98.7 F 98.2 F 11/16/17 11/16/17 11/16/17 10:00 10:50 13:38 Breakfast 25% Lunch 0 Temperature 98.3 F 99.0 F Laboratory Tests 11/16/17 06:45 WBC 10.3 H Intermittent acceptance of meals but tolerating puree and honey thick liquid, total assist, with aspiration precautions. Provide Magic cup/Ensure pudding b/n meals.
[2017-11-16] MEDS ORDERED: QUEtiapine FUMARATE 25 MG TABLET (FP) ONE (21:23)
[2017-11-16] MEDS: QUEtiapine FUMARATE 50 MG TABLET PO SCH (21:45)
[2017-11-16] MEDS: TAMSULOSIN HCL 0.4 MG CAP PO SCH (21:46)
[2017-11-16] MEDS: ATORVASTATIN CA 10 MG TABLET (FP) PO SCH (21:46)
[2017-11-16] MEDS: LIDOCAINE PATCH REMOVAL MC SCH (23:56)
[2017-11-17] MEDS: DEXTROSE 5%-0.45% SALINE 1,000 ML IV SCH (04:31)
[2017-11-17] MEDS: NYSTATIN 500,000 UNITS/5 ML SUSPENSION PO SCH ×2 (05:59→06:02)
[2017-11-17] MEDS: KETOROLAC TROMETHAMINE 30 MG/1 ML VIAL IM PRN (06:11)
[2017-11-17 06:13] LABS: BASO % 0.8 % (0-2.0); EOS % 1.9 % (0-4.5); HEMATOCRIT 39.2 % (35.4-49); HEMOGLOBIN 12.8 GM/dL (11.7-16.9); LYMPH % 15.5 % (8-40); MCH 28.7 pg (25.7-33.7); MCHC 32.6 g/dl (32.0-35.9); MEAN CELL VOLUME 88.3 fl (80-96); MEAN PLT VOLUME 8.8 fl (7.5-11.1); MONO % 8.9 % (3.8-10.2); NEUT % 72.9 % (42.8-82.8); PLATELET COUNT 228 K/MM3 (134-434); RBC 4.44 M/mm3 (4.00-5.60); RDW 13.7 % (11.9-15.9); WHITE BLOOD COUNT 11.5 K/mm3 (4.0-10.0)
[2017-11-17 06:35] LABS: ANION GAP 6 MMOL/L (8-16); BLOOD UREA NITROGEN 16 mg/dL (7-18); CALCIUM 9.1 mg/dL (8.5-10.1); CHLORIDE 104 mmol/L (98-107); CO2 27 mmol/L (21-32); CREATININE 0.5 mg/dL (0.55-1.3); GLUCOSE,RANDOM 89 mg/dL (74-106); POTASSIUM 3.7 mmol/L (3.5-5.1); SODIUM 138 mmol/L (136-145)
[2017-11-17] MEDS: ALBUTEROL SO4 2.5/IPRATROPIUM 0.5 INH SOL 3 ML VIAL.NEB. NEB SCH ×2 (07:27→13:00)
[2017-11-17] MEDS: METOPROLOL TARTRATE 25 MG TABLET (FP) PO SCH (10:24)
[2017-11-17] MEDS: RANITIDINE HCL 150 MG TABLET (FP) PO SCH (10:24)
[2017-11-17] MEDS: levETIRAcetam 500 MG TABLET (FP) PO SCH (10:24)
[2017-11-17] MEDS: CHOLECALCIFEROL (VITAMIN D3) 1,000 UNIT TABLET (FP) PO SCH (10:24)
[2017-11-17] MEDS: LIDOCAINE 5% TOPICAL PATCH TP SCH (10:24)
[2017-11-17] MEDS: DOCUSATE SODIUM 100 MG CAPSULE (FP) PO SCH (10:25)
[2017-11-17] MEDS: FINASTERIDE 5 MG TABLET (FP) PO SCH (10:25)
[2017-11-17] MEDS: ASCORBIC ACID 500 MG TABLET (FP) PO SCH (10:25)
[2017-11-17] MEDS: FERROUS SO4 325 MG TABLET (FP) PO SCH (10:25)
[2017-11-17] MEDS: POLYETHYLENE GLYCOL 3350 119 GM BTL PO SCH (10:25)
[2017-11-17] MEDS: predniSONE 20 MG TABLET (UD) PO SCH (10:25)
[2017-11-17 11:15] VITALS: BP 141/78; PULSE 66
--- NOTE | 2017-11-17 11:17 | PN ---
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 Provide Magic cup/Ensure pudding b/n meals.
--- NOTE | 2017-11-17 13:31 | DS ---
Physical Examination Vital Signs: Vital Signs Temperature 36.8 C 11/17/17 10:00 Pulse Rate 66 11/17/17 10:00 Respiratory Rate 20 11/17/17 10:00 Blood Pressure 141/78 11/17/17 10:00 O2 Sat by Pulse Oximetry (%) 97 11/16/17 22:00 Constitutional: Yes: Well Nourished, No Distress, Calm Cardiovascular: Yes: Regular Rate and Rhythm. No: Gallop, Murmur, Rub Respiratory: Yes: Regular, CTA Bilaterally. No: Rales, Rhonchi, Wheezes Gastrointestinal: Yes: Normal Bowel Sounds, Soft. No: Distention, Tenderness Extremities: Yes: WNL Edema: No Labs: CBC, BMP 11/17/17 06:00 11/17/17 06:00 Discharge Summary Reason For Visit: SEIZURE ALTERED MENTAL STATUS Current Active Problems Altered mental status (Acute) DVT prophylaxis (Acute) Seizure (Acute) Seizures (Acute) Wheezing (Acute) Hospital Course: (1) Seizures Code(s): R56.9 - UNSPECIFIED CONVULSIONS (2) Dementia Code(s): F03.90 - UNSPECIFIED DEMENTIA WITHOUT BEHAVIORAL DISTURBANCE Qualifiers: Dementia type: unspecified type Dementia behavioral disturbance: with behavioral disturbance Qualified Code(s): F03.91 - Unspecified dementia with behavioral disturbance (3) HLD (hyperlipidemia) Code(s): E78.5 - HYPERLIPIDEMIA, UNSPECIFIED (4) HTN (hypertension) Code(s): I10 - ESSENTIAL (PRIMARY) HYPERTENSION (5) Metabolic encephalopathy Code(s): G93.41 - METABOLIC ENCEPHALOPATHY (6) Thrush (7) Wheezing Mr Mcdonald is an 82 year old male who comes in with seizures. He was admitted and started on Keppra. He had AMS and was evaluated for infectious and neurologic cause, both were negative. His seroquel was changed to qhs and his lethargy improved. He had HTN and was placed on metoprolol, this resolved. He was found to have thrush and treated with nystatin. He is currently stable for discharge back to SNF. 36 minutes spent in preparation of this discharge Condition: Stable - Instructions Diet, Activity, Other Instructions: resume previous diet and activity Referrals: Bhavesh Escalante MD [Primary Care Provider] - Carter Handley DO [Staff Physician] - Disposition: [facility] - Home Medications Comprehensive Discharge Medication List: Ambulatory Orders Acetaminophen 2 tab PO DAILY PRN 06/10/16 Ascorbic Acid [Vitamin C -] 1 tab PO DAILY 06/10/16 Finasteride 1 tab PO DAILY 06/10/16 Multivitamin with Minerals [Icaps Plus] 1 tab PO DAILY 06/10/16 Tamsulosin HCl 1 tab PO HS 06/10/16 Atorvastatin Ca [Lipitor] 10 mg PO HS #30 tablet 08/07/16 Ferrous Sulfate [Feosol] 325 mg PO DAILY #30 tab 08/07/16 Polyethylene Glycol 3350 [Miralax 119 gm Btl -] 17 gm PO DAILY #30 bottle Docusate Sodium [Colace -] 100 mg PO BID cap 10/21/16 Enoxaparin [Lovenox -] 40 mg SQ DAILY syr 10/21/16 Aa/Hydrolyzed Collagen, Whey [Lps 15-30 Liquid] 960 ml PO DAILY 11/09/17 Cholecalciferol (Vitamin D3) [Vitamin D3] 1,000 unit PO DAILY 11/09/17 Ranitidine [Zantac -] 150 mg PO DAILY 11/09/17 Albuterol 2.5/Ipratropium 0.5 [Duoneb -] 1 amp NEB RTID amp 11/17/17 Lidocaine 5% Patch [Lidoderm -] 2 patch TP DAILY patch 11/17/17 Lidocaine Patch Removal [Lidoderm Patch Removal] 1 each MC DAILY@2200 each 11/25 Metoprolol Tartrate [Lopressor -] 25 mg PO BID tablet 11/17/17 Quetiapine Fumarate [Seroquel -] 50 mg PO HS tablet 11/17/17 levETIRAcetam [Keppra -] 500 mg PO BID tablet 11/17/17
[2017-11-17 15:21] VITALS: TEMP 98.2
== END 2017-11-17 17:25 | DRG 100 ==
LOC: JER 21:51 → JERBED 11-09 01:54 → UNDOADMIN 11-09 02:04 → J4W 11-09 19:12 → J7W 11-12 18:30
PROVIDERS: ADMIT Internal Medicine; ATTEND Internal Medicine
DX: R56.9 Unspecified convulsions (principal); G93.41 Metabolic encephalopathy; E87.2 Acidosis; B37.0 Candidal stomatitis; Z68.41 Body mass index [BMI] 40.0-44.9, adult; N40.0 Benign prostatic hyperplasia without lower urinary tract symptoms; F03.90 Unspecified dementia, unspecified severity, without behavioral disturbance, psychotic disturbance, mood disturbance, and anxiety; Z87.440 Personal history of urinary (tract) infections; E11.9 Type 2 diabetes mellitus without complications; R06.2 Wheezing; I10 Essential (primary) hypertension; E66.9 Obesity, unspecified; R00.0 Tachycardia, unspecified; S01.512A Laceration without foreign body of oral cavity, initial encounter; X58.XXXA Exposure to other specified factors, initial encounter; Y93.89 Activity, other specified; Y92.128 Other place in nursing home as the place of occurrence of the external cause; Y99.8 Other external cause status
CPT/HCPCS: 36415; 70450-TC; 70551-TC; 71045-TC-FY; 72170-TC-FY; 73502-TC-LT-FY; 73502-TC-RT; 80048; 80053; 81003; 81015; 82803; 83605; 83735; 84100; 84484; 85025; 85610; 85730; 87040; 87086; 87324; 87449; 90670; 90688; 93005; 93010; 94640; 97116-GP; 97161-GP; 99285-25; G0008; G0009